=== PATIENT | male | born 1945 | race Caucasian/White ===

== ENCOUNTER 2017-12-25 12:08 | Emergency (ER) | payer MEDICARE, SELFPAY ==
[2017-12-25 12:11] VITALS: BP 133/85; PULSE 85; RESP 16; TEMP 36.6; O2SAT 96; BMI 34.7
[2017-12-25 12:19] VITALS: BMI 35.7
--- NOTE | 2017-12-25 12:20 | PC.NURSE ---
spoke with [facility]- facility staff unsure of last time pt received tetanus shot.
--- NOTE | 2017-12-25 12:21 | CT_ITS ---
CT cervical spine wo con CLINICAL INDICATION: Neck pain following injury, contusion, hematoma, laceration ITS.REASON: fall ORDERING PHYSICIAN: Kaitlynn Bowman MD PATIENT AGE: 72 years TECHNIQUE: Axial images are obtained with sagittal and coronal reformats. FINDINGS: Soft tissue swelling is present anterior to the left ear with some soft tissue gas noted at this area consistent with laceration. There is normal alignment. No fracture or dislocation evident. No lytic or blastic change. Degenerative disc disease C5-C6 with right-sided uncovertebral hypertrophy and right-sided foraminal narrowing. Degenerative disc disease C6-C7 with bulging disc. Lung apices are clear. No prevertebral soft tissue swelling. IMPRESSION: 1. No acute fracture. 2. Cervical spondylosis
--- NOTE | 2017-12-25 12:24 | XR_ITS ---
XR elbow LT min 3V HISTORY: Post traumatic pain ITS.REASON: fall ORDERING PHYSICIAN: Kaitlynn Bowman MD PATIENT AGE: 72 years COMPARISON: None FINDINGS: There is a faint curvilinear calcific density at the olecranon region. Nonspecific and could be related to an avulsion injury age indeterminate. Please correlate with patient's area of point tenderness. No other significant anomalies evident. IMPRESSION: Avulsion fracture at the olecranon process age indeterminate
--- NOTE | 2017-12-25 12:27 | CT_ITS ---
CT head/brain wo con HISTORY: Headache, pain, laceration, contusion ITS.REASON: FALL ORDERING PHYSICIAN: Kaitlynn Bowman MD PATIENT AGE: 72 years COMPARISON: None TECHNIQUE: Axial images obtained without contrast. Brain and bone windows reviewed. FINDINGS: No midline shift, mass effect, intracranial hemorrhage, hydrocephalus, or extra-axial fluid collection is evident. There is generalized atrophy. Encephalomalacia changes are present in the right parietal, temporal, and occipital lobe. There has been a prior right-sided craniotomy in the parietal region. There is an old lacunar infarct in the left basal ganglia. No acute intracranial hemorrhage. No acute calvarial fracture. Mild mucosal thickening involves the paranasal sinuses. Soft tissue swelling is present in the left occipital region consistent with contusion. There is also soft tissue swelling along the anterior aspect of the left tear with a small amount soft tissue gas in this region. No overlying calvarial fracture. IMPRESSION: 1. No acute intracranial findings. 2. 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 3. Old left basal ganglia lacunar infarction 4. Contusion along the left ear and left occipital region
--- NOTE | 2017-12-25 12:37 | HMH.EDFALL ---
ED Disposition Clinical Impression: Fall, Ear lobe laceration, Contusion of head, Elbow abrasion Disposition: Home, Self-Care Condition on Discharge: Good Additional Instructions: Needs dressing changes twice daily and watch wound for any infection; call PCP if any evidence of infection; suture removal in one week Referrals: Dave Vazquez MD [Primary Care Provider] - Time of Disposition: 14:45 - Critical Care Critical Care Time: No Attestation: On , the high probability of a clinically significant, sudden or life threatening deterioration of the following system(s) required my full and direct attention, intervention and personal management. The time I documented below is in addition to time spent performing reported procedures but includes the following listed in this critical care notation. Medical Decision Making - Medical Records Medical records reviewed: Yes: I reviewed the patient's medical records. Vital Signs: 12/25/17 12:11 Temperature 98 F Temperature Source Oral Pulse Rate [Right Radial] 85 Respiratory Rate 16 Blood Pressure [Right Arm] 133/85 Blood Pressure Mean [Right Arm] 101 Blood Pressure Source [Right Arm] Automatic Cuff Blood Pressure Position [Right Arm] Supine 02 Sat by Pulse Oximetry 96 Oxygen Delivery Method Room Air Orders (Tests/Meds): ED MEDICATIONS Discontinued Medications Generic Name Dose Route Start Last Admin Trade Name Freq PRN Reason Stop Dose Admin Tetanus/Reduced Diphtheria/Acell Pertussis 0.5 ml 12/25/17 12:25 12/25/17 12:33 Adacel Tdap 0.5ml Syringe IM 12/25/17 12:26 0.5 ml .ONCE ONE Administration - Radiology Data #1 Image(s): Elbow Image Reviewed: Yes I reviewed the patient's radiology results Preliminary Findings: Abnormal ( faint avulsion fx olecranon age indet. ) - CT Data CT Scan: Head, C-Spine Time Received: 14:[address] Reviewed: Yes: I have reviewed the patient's CT results Preliminary Findings: Normal/NAD (neg acute per rad) - Yogesh Inquiry Pt receiving controlled substance: No Fall HPI - General Chief Complaint: Fall Stated Complaint: Trip and fall. Skin tear to left ear and elbow Time Seen by Provider: 12/25/17 12:20 Mode of Arrival: EMS Source of Information: EMS Limitations: Physical Limitations Description of Symptoms (Recalled from ER Triage Doc. by RN): Trip and fall. Hit wast basket on the way down. Skin tear to left ear and elbow. Pt denies LOC from fall. - History of Present Illness MD complaint: fall Onset (ago): minute(s) Fall from: walking Fall witnessed: no Place fall occurred: snf/SNF Loss of consciousness: none Prolonged down time: no Context: tripped/slipped Location of injury: head, other (L ear through and through laceration) Location of injury - extremities: Left: elbow - Related Data Home Medications Medication Instructions Recorded Confirmed ascorbic acid (vitamin C) 500 mg 500 mg PO QDAY tab 10/30/17 tablet atorvastatin 40 mg tablet 40 mg PO QDAY 10/30/17 carbamazepine 100 mg chewable 100 mg PO QDAY tab 10/30/17 tablet carvedilol 25 mg tablet 25 mg PO BID 10/30/17 duloxetine 20 mg capsule,delayed 30 mg PO QDAY 10/30/17 release ferrous sulfate 325 mg (65 mg 325 mg PO BID tab 10/30/17 iron) tablet hydrochlorothiazide 25 mg tablet 12.5 mg PO BID tab 10/30/17 hydrocodone 5 mg-acetaminophen 325 1 tab PO Q6H PRN 10/30/17 mg tablet insulin lispro protamine-lispro 40 unit SUB-Q BID ml 10/30/17 100 unit/mL (75-25) subcutaneous susp levothyroxine 50 mcg tablet 50 mcg PO QDAY tab 10/30/17 losartan 100 mg tablet 100 mg PO QDAY 10/30/17 magnesium hydroxide 400 mg/5 mL 400 mg PO ONCE 10/30/17 oral suspension metformin 1,000 mg tablet 1,000 mg PO BID 10/30/17 ticagrelor 90 mg tablet 90 mg PO BID 10/30/17 Previous Rx's Medication Instructions Recorded isosorbide mononitrate ER 30 mg 30 mg PO QAM #30 tab 10/30/17 tablet,exten
--- NOTE | 2017-12-25 12:41 | ED_ITS ---
ED Disposition Clinical Impression: Fall, Ear lobe laceration, Contusion of head, Elbow abrasion Disposition: Home, Self-Care Condition on Discharge: Good Additional Instructions: Needs dressing changes twice daily and watch wound for any infection; call PCP if any evidence of infection; suture removal in one week Referrals: Dave Vazquez MD [Primary Care Provider] - Time of Disposition: 14:45 - Critical Care Critical Care Time: No Attestation: On , the high probability of a clinically significant, sudden or life threatening deterioration of the following system(s) required my full and direct attention, intervention and personal management. The time I documented below is in addition to time spent performing reported procedures but includes the following listed in this critical care notation. Medical Decision Making - Medical Records Medical records reviewed: Yes: I reviewed the patient's medical records. Vital Signs: 12/25/17 12:11 Temperature 98 F Temperature Source Oral Pulse Rate [Right Radial] 85 Respiratory Rate 16 Blood Pressure [Right Arm] 133/85 Blood Pressure Mean [Right Arm] 101 Blood Pressure Source [Right Arm] Automatic Cuff Blood Pressure Position [Right Arm] Supine 02 Sat by Pulse Oximetry 96 Oxygen Delivery Method Room Air Orders (Tests/Meds): ED MEDICATIONS Discontinued Medications Generic Name Dose Route Start Last Admin Trade Name Freq PRN Reason Stop Dose Admin Tetanus/Reduced Diphtheria/Acell Pertussis 0.5 ml 12/25/17 12:25 12/25/17 12: 33 Adacel Tdap 0.5ml Syringe IM 12/25/17 12:26 0.5 ml .ONCE ONE Administration - Radiology Data #1 Image(s): Elbow Image Reviewed: Yes I reviewed the patient's radiology results Preliminary Findings: Abnormal ( faint avulsion fx olecranon age indet. ) - CT Data CT Scan: Head, C-Spine Time Received: 14:[address] Reviewed: Yes: I have reviewed the patient's CT results Preliminary Findings: Normal/NAD (neg acute per rad) - Yogesh Inquiry Pt receiving controlled substance: No Fall HPI - General Chief Complaint: Fall Stated Complaint: Trip and fall. Skin tear to left ear and elbow Time Seen by Provider: 12/25/17 12:20 Mode of Arrival: EMS Source of Information: EMS Limitations: Physical Limitations Description of Symptoms (Recalled from ER Triage Doc. by RN): Trip and fall. Hit wast basket on the way down. Skin tear to left ear and elbow. Pt denies LOC from fall. - History of Present Illness MD complaint: fall Onset (ago): minute(s) Fall from: walking Fall witnessed: no Place fall occurred: shelter/SNF Loss of consciousness: none Prolonged down time: no Context: tripped/slipped Location of injury: head, other (L ear through and through laceration) Location of injury - extremities: Left: elbow - Related Data Home Medications Medication Instructions Recorded Confirmed ascorbic acid (vitamin C) 500 mg 500 mg PO QDAY tab 10/30/17 tablet atorvastatin 40 mg tablet 40 mg PO QDAY 10/30/17 carbamazepine 100 mg chewable 100 mg PO QDAY tab 10/30/17 tablet carvedilol 25 mg tablet 25 mg PO BID 10/30/17 duloxetine 20 mg capsule,delayed 30 mg PO QDAY 10/30/17 release ferrous sulfate 325 mg (65 mg 325 mg PO BID tab 10/30/17
--- NOTE | 2017-12-25 14:22 | PC.NURSE ---
Assisted MD with cleaning left ear and left elbow using clean technique. 1% lidocaine injected to left ear per MD. Pt tolerated moderately well.
[2017-12-25 15:29] VITALS: BP 133/85; PULSE 85; RESP 18; TEMP 36.7; O2SAT 98
== END 2017-12-25 15:20 | disposition home or self-care (01) ==
PROVIDERS: Emergency Provider Emergency Medicine; Family Provider Emergency Medicine; PCP Emergency Medicine
DX: S01.312A Laceration without foreign body of left ear, initial encounter (principal); S51.012A Laceration without foreign body of left elbow, initial encounter; W01.0XXA Fall on same level from slipping, tripping and stumbling without subsequent striking against object, initial encounter; Y92.019 Unspecified place in single-family (private) house as the place of occurrence of the external cause; Z23 Encounter for immunization; I10 Essential (primary) hypertension; I25.10 Atherosclerotic heart disease of native coronary artery without angina pectoris; E78.5 Hyperlipidemia, unspecified; E11.9 Type 2 diabetes mellitus without complications; Z79.4 Long term (current) use of insulin; Z79.899 Other long term (current) drug therapy
CPT/HCPCS: 12013; 70450; 72125; 73080; 90471; 90715; 99281

== ENCOUNTER 2017-12-30 01:02 | Emergency (ER) | payer MEDICARE, SELFPAY ==
[2017-12-30 01:09] VITALS: BP 174/100; PULSE 81; RESP 18; TEMP 36.8; O2SAT 98; BMI 34.2
[2017-12-30 01:28] LABS: Basophils % 0.4 % (0.1-2.0); Eosinophils # 0.2 K/mm3 (0.0-0.4); Eosinophils % 2.1 % (0.1-12.0); Hematocrit 41.2 % (42.0-52.0); Hemoglobin 13.3 g/dL (14.1-18.0); Lymphocytes # 1.2 K/mm3 (0.7-4.5); Lymphocytes % 12.3 K/mm3 (10-50); Mean Corpuscular HGB Conc 32.3 g/dL (31.8-35.4); Mean Corpuscular Hemoglobin 31.1 pg (27.0-31.2); Mean Corpuscular Volume 96.5 fl (80-94); Mean Platelet Volume 7.8 fl (7.4-10.4); Monocytes # 0.7 K/mm3 (0.1-1.0); Monocytes % 7.3 % (1.7-9.3); Neutrophils # 7.4 K/mm3 (1.8-7.8); Neutrophils % 77.9 % (37.0-80.0); Platelet Count 269 K/mm3 (142-424); Red Blood Count 4.27 M/mm3 (4.60-6.20); Red Cell Distribution Width 14.3 % (11.5-17.5); White Blood Count 9.5 K/mm3 (4.8-10.8)
[2017-12-30 01:52] LABS: Anion Gap 12.5 mEq/L (5-15); Blood Urea Nitrogen 28 mg/dL (7-18); CKMB Relative Index 5.2 U/L (0-4.0); Carbon Dioxide 28 mmol/L (21.0-32.0); Chloride 100 mmol/L (98-107); Creatine Kinase 42 U/L (39-308); Creatine Kinase MB 2.2 mg/ml (0.0-3.6); Creatinine Clearance Estimated 67 mL/min (0-300); Creatinine,Serum 1.47 mg/dL (0.70-1.30); Estimated Glomerular Filt Rate 47 ml/min (>60); GFR (African American) 57 ML/MIN (>60); Glucose 334 mg/dL (74-106); Potassium 4.5 mmoL/L (3.5-5.1); Sodium 136 mmol/L (136-145); Troponin I 0.08 ng/ml (0.00-0.06)
--- NOTE | 2017-12-30 02:11 | HMH.EDANX ---
ED Disposition Clinical Impression: Acute anxiety, Diabetes mellitus type 2 in nonobese, Renal insufficiency Disposition: Home, Self-Care Condition on Discharge: Good Instructions: Anxiety Disorders Additional Instructions: resume prev meds Referrals: Dave Vazquez MD [Primary Care Provider] - - Critical Care Critical Care Time: No Attestation: On 12/30/17, the high probability of a clinically significant, sudden or life threatening deterioration of the following system(s) required my full and direct attention, intervention and personal management. The time I documented below is in addition to time spent performing reported procedures but includes the following listed in this critical care notation. Medical Decision Making - Medical Records Medical records reviewed: Yes: I reviewed the patient's medical records. - Yogesh Inquiry Pt receiving controlled substance: No Vital Signs: 12/30/17 01:09 Temperature 98.2 F Temperature Source Oral Pulse Rate [Right Radial] 81 Respiratory Rate 18 Blood Pressure [Right Arm] 174/100 Blood Pressure Mean [Right Arm] 124 Blood Pressure Source [Right Arm] Automatic Cuff Blood Pressure Position [Right Arm] Sitting 02 Sat by Pulse Oximetry 98 Oxygen Delivery Method Room Air - Lab Data Lab results reviewed: Yes: I reviewed the patient's lab results. Lab Results 12/30/17 01:20: WBC 9.5, RBC 4.27 L, Hgb 13.3 L, Hct 41.2 L, MCV 96.5 H, MCH 31.1, MCHC 32.3, RDW 14.3, Plt Count 269, MPV 7.8, Neut % (Auto) 77.9, Lymph % (Auto) 12.3, [place] % (Auto) 7.3, Eos % (Auto) 2.1, Baso % (Auto) 0.4, Neut # (Auto) 7.4, Lymph # (Auto) 1.2, [place] # (Auto) 0.7, Eos # (Auto) 0.2, Baso # (Auto) 0.0 12/30/17 01:20: Sodium 136, Potassium 4.5, Chloride 100, Carbon Dioxide 28, Anion Gap 12.5, BUN 28 H, Creatinine 1.47 H, Estimated Creat Clear 67, Estimated GFR 47 L, Est GFR ( Amer) 57 L, Glucose 334 H, Total Creatine Kinase 42, CK-MB (CK-2) 2.2, CK-MB (CK-2) Rel Index 5.2 H, Troponin I 0.08 H Result diagrams: 12/30/17 01:20 12/30/17 01:20 Anxiety HPI - General Chief Complaint: Anxiety Stated Complaint: anxiety Time Seen by Provider: 12/30/17 02:11 Mode of Arrival: EMS Source of Information: Patient, EMS, Medical Record Limitations: No Limitations Description of Symptoms (Recalled from ER Triage Doc. by RN): pt missed bedtime meds and awoke anxious, staff said his BP was elevated (200 systolic) so instead of medicating him with his meds he missed they called ems who transported pt to the ER, pt reports his anxiety is improved - History of Present Illness HPI narrative: pt with hx of anxiety and elevated bp tonight complaint: anxiety Onset (ago): day(s) Severity: moderate Place: home History of similar episodes: Yes Provoking factors: none known - Related Data Home Medications: Home Medications Medication Instructions Recorded Confirmed ascorbic acid (vitamin C) 500 mg 500 mg PO QDAY tab 10/30/17 12/30/17 tablet atorvastatin 40 mg tablet 40 mg PO QDAY 10/30/17 12/30/17 carbamazepine 100 mg chewable 100 mg PO QDAY tab 10/30/17 12/30/17 tablet carvedilol 25 mg tablet 25 mg PO BID 10/30/17 12/30/17 duloxetine 20 mg capsule,delayed 30 mg PO QDAY 10/30/17 12/30/17 release ferrous sulfate 325 mg (65 mg 325 mg PO BID tab 10/30/17 12/30/17 iron) tablet hydrochlorothiazide 25 mg tablet 12.5 mg PO BID tab 10/30/17 12/30/17 hydrocodone 5 mg-acetaminophen 325 1 tab PO Q6H PRN 10/30/17 12/30/17 mg tablet insulin lispro protamine-lispro 40 unit SUB-Q BID ml 10/30/17 12/30/17 100 unit/mL (75-25) subcutaneous susp levothyroxine 50 mcg tablet 50 mcg PO QDAY tab 10/30/17 12/30/17 losartan 100 mg tablet 100 mg PO QDAY 10/30/17 12/30/17 magnesium hydroxide 400 mg/5 mL 400 mg PO ONCE 10/30/17 12/30/17 oral suspension metformin 1,000 mg tablet 1,000 mg PO BID 10/30/17 12/30/17 ticagrelor 90 mg tablet 90 mg PO BID 10/30/17 12/30/17 Isosorb
--- NOTE | 2017-12-30 02:15 | ED_ITS ---
ED Disposition Clinical Impression: Acute anxiety, Diabetes mellitus type 2 in nonobese, Renal insufficiency Disposition: Home, Self-Care Condition on Discharge: Good Instructions: Anxiety Disorders Additional Instructions: resume prev meds Referrals: Dave Vazquez MD [Primary Care Provider] - - Critical Care Critical Care Time: No Attestation: On 12/30/17, the high probability of a clinically significant, sudden or life threatening deterioration of the following system(s) required my full and direct attention, intervention and personal management. The time I documented below is in addition to time spent performing reported procedures but includes the following listed in this critical care notation. Medical Decision Making - Medical Records Medical records reviewed: Yes: I reviewed the patient's medical records. - Yogesh Inquiry Pt receiving controlled substance: No Vital Signs: 12/30/17 01:09 Temperature 98.2 F Temperature Source Oral Pulse Rate [Right Radial] 81 Respiratory Rate 18 Blood Pressure [Right Arm] 174/100 Blood Pressure Mean [Right Arm] 124 Blood Pressure Source [Right Arm] Automatic Cuff Blood Pressure Position [Right Arm] Sitting 02 Sat by Pulse Oximetry 98 Oxygen Delivery Method Room Air - Lab Data Lab results reviewed: Yes: I reviewed the patient's lab results. Lab Results 12/30/17 01:20: WBC 9.5, RBC 4.27 L, Hgb 13.3 L, Hct 41.2 L, MCV 96.5 H, MCH 31.1, MCHC 32.3, RDW 14.3, Plt Count 269, MPV 7.8, Neut % (Auto) 77.9, Lymph % ( Auto) 12.3, [place] % (Auto) 7.3, Eos % (Auto) 2.1, Baso % (Auto) 0.4, Neut # (Auto ) 7.4, Lymph # (Auto) 1.2, [place] # (Auto) 0.7, Eos # (Auto) 0.2, Baso # (Auto) 0.0 12/30/17 01:20: Sodium 136, Potassium 4.5, Chloride 100, Carbon Dioxide 28, Anion Gap 12.5, BUN 28 H, Creatinine 1.47 H, Estimated Creat Clear 67, Estimated GFR 47 L, Est GFR ( Amer) 57 L, Glucose 334 H, Total Creatine Kinase 42, CK-MB (CK-2) 2.2, CK-MB (CK-2) Rel Index 5.2 H, Troponin I 0.08 H Result diagrams: 12/30/17 01:20 12/30/17 01:20 Anxiety HPI - General Chief Complaint: Anxiety Stated Complaint: anxiety Time Seen by Provider: 12/30/17 02:11 Mode of Arrival: EMS Source of Information: Patient, EMS, Medical Record Limitations: No Limitations Description of Symptoms (Recalled from ER Triage Doc. by RN): pt missed bedtime meds and awoke anxious, staff said his BP was elevated (200 systolic) so instead of medicating him with his meds he missed they called ems who transported pt to the ER, pt reports his anxiety is improved - History of Present Illness HPI narrative: pt with hx of anxiety and elevated bp tonight complaint: anxiety Onset (ago): day(s) Severity: moderate Place: home History of similar episodes: Yes Provoking factors: none known - Related Data Home Medications: Home Medications Medication Instructions Recorded Confirmed ascorbic acid (vitamin C) 500 mg 500 mg PO QDAY tab 10/30/17 12/30/17 tablet atorvastatin 40 mg tablet 40 mg PO QDAY 10/30/17 12/30/17 carbamazepine 100 mg chewable 100 mg PO QDAY tab 10/30/17 12/30/17 tablet carvedilol 25 mg tablet 25 mg PO BID 10/30/17 12/30/17 duloxetine 20 mg capsule,delayed 30 mg PO QDAY 10/30/17 12/30/17 release ferrous sulfate 325 mg (65 mg 325 mg PO BID tab 10/30/17 12/30/17 iron) tablet
[2017-12-30 02:20] VITALS: BP 186/103; PULSE 85; RESP 20; TEMP 36.9; O2SAT 96
[2017-12-30 02:46] VITALS: BP 170/95; PULSE 80; RESP 20; TEMP 36.9; O2SAT 96
== END 2017-12-30 02:49 | disposition home or self-care (01) ==
PROVIDERS: Emergency Provider Emergency Medicine; Family Provider Emergency Medicine; PCP Emergency Medicine
DX: F41.9 Anxiety disorder, unspecified (principal); E11.65 Type 2 diabetes mellitus with hyperglycemia; Z79.84 Long term (current) use of oral hypoglycemic drugs; N28.9 Disorder of kidney and ureter, unspecified; I25.10 Atherosclerotic heart disease of native coronary artery without angina pectoris; I10 Essential (primary) hypertension; Z95.0 Presence of cardiac pacemaker; E03.9 Hypothyroidism, unspecified; D64.9 Anemia, unspecified; Z87.891 Personal history of nicotine dependence
CPT/HCPCS: 80048; 82550; 82553; 84484; 85025; 99282

== ENCOUNTER → 2018-01-08 14:55 | Outpatient (CLI) | payer MEDICARE, SELFPAY ==
--- NOTE | 2018-01-08 10:00 | CA_ITS ---
PROCEDURE: Contrast echo Definity contrast was given 2 in has the endocardial surfaces. This by contrast used endocardial surface of poorly visualized, visually estimated ejection fraction of 45%, there is distal septum and apical wall hypokinesis seen.
--- NOTE | 2018-01-08 15:07 | CA_ITS ---
PROCEDURE: 2-D M-mode and color Doppler study INDICATIONS FOR THE TEST: Chest pain COPD Heart Murmur Tobacco Smoking Palpitations Fatigue Syncope Edema HypertensionXDiabetes MellitusX Rheumatic Fever SOBXDOEXObesityXHyperlipidemiaX Family History HD Additional History CAD,CABG H/O CHF,DM ECHO EF 08/05 40-45% PATIENT INFORMATION HEIGHT: 68 WEIGHT:235 GENDER: Male B/P:141/86 2-D/M-MODE INTERPRETATION: 2-D MEASUREMENTS OBSERVED VALUES IN CMS Right Ventricular Dimension (RVDd) 2.5 Interventricular Septum (Thickness)(IVsd) 1.6 Left Ventricular Internal Dimensions(LVIDd) 5.1 Left Ventricular Posterior Wall (Thickness)(LVPWd) 1.5 Aortic Root 3.6 Aortic Cusp Separation 1.3 Left Atrial Dimensions (LAD) 3.3 2D 1. Technically difficult study because of the patient's factor and poor acoustic windows, endocardial surface of poorly visualized, a repeat study with Definity contrast is recommended. 2. The left atrium is mildly enlarged, left ventricle is normal size, there is mild concentric left ventricular hypertrophy, visually estimated ejection fraction approximately 40-45%, there is marked hypokinesis involving the distal septum, anteroapical and anterolateral wall. A repeat study with Definity contrast is recommended. 3. The right atrium and right ventricle are mildly enlarged with normal contractility. 4. The aortic valve is minimally thickened and fibrosed. 5. The mitral and tricuspid valve leaflets are minimally thickened. 6. The pulmonic valve is poorly visualized. 7. No significant pericardial effusion noted. DOPPLER INTERROGATION: 1. The maximum aortic out flow velocity is 2.2 m/s, resulting in a mean gradient across valve of 12 mmHg represents mild aortic stenosis, there is no significant aortic insufficiency present. 2. The mitral inflow velocity within normal range, there is no mitral stenosis, there is mild mitral regurgitation, grade 1 diastolic dysfunction seen with tissue Doppler evidence of raised left atrial pressure. 3. There is mild tricuspid regurgitation noted, tricuspid and enteric velocity insufficient for acquisition of the right ventricular systolic pressure. CONCLUSION: 1. Technically very difficult study because of the patient's factor and poor acoustic windows, repeat study with Definity contrast is recommended. 2. Mildly enlarged left atrium, normal left ventricular size, visually estimated ejection fraction is probably 40-45% with segmental wall motion abnormalities described above, repeat study with Definity contrast is recommended. Grade 1 diastolic dysfunction seen
[2018-01-08 16:42] LABS: Anion Gap 17.2 mEq/L (5-15); Blood Urea Nitrogen 29 mg/dL (7-18); Carbon Dioxide 25 mmol/L (21.0-32.0); Chloride 96 mmol/L (98-107); Creatinine,Serum 1.83 mg/dL (0.70-1.30); Estimated Glomerular Filt Rate 37 ml/min (>60); GFR (African American) 44 ML/MIN (>60); Glucose 273 mg/dL (74-106); Potassium 4.2 mmoL/L (3.5-5.1); Sodium 134 mmol/L (136-145)
== END ==
PROVIDERS: Internal Medicine Cardiovascular Disease; Family Provider Emergency Medicine; PCP Emergency Medicine; Visit Provider Internal Medicine
DX: I25.10 Atherosclerotic heart disease of native coronary artery without angina pectoris (principal); I50.9 Heart failure, unspecified; I25.5 Ischemic cardiomyopathy
CPT/HCPCS: 36415; 80048; 83880; 93306

== ENCOUNTER 2018-01-09 18:21 | Emergency (ER) | payer MEDICARE, SELFPAY ==
[2018-01-09 18:25] VITALS: BP 165/82; PULSE 79; RESP 18; TEMP 36.8; O2SAT 95; BMI 37.0
--- NOTE | 2018-01-09 18:29 | XR_ITS ---
XR hand LT min 3V HISTORY: Posttraumatic pain ITS.REASON: s/t to hand ORDERING PHYSICIAN: Peña Nieto MD PATIENT AGE: 72 years COMPARISON: None FINDINGS: No obvious fracture or dislocation. 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 IMPRESSION: No acute finding
--- NOTE | 2018-01-09 19:22 | HMH.EDGENADL ---
ED Disposition Clinical Impression: Skin tear of hand without complication Qualifiers: Encounter type: initial encounter Laterality: left Qualified Code(s): S61.412A - Laceration without foreign body of left hand, initial encounter Disposition: Home, Self-Care Condition on Discharge: Good Instructions: DI for Laceration Repair With Dermabond Referrals: Dave Vazquez MD [Primary Care Provider] - - Critical Care Critical Care Time: No Attestation: On 01/09/18, the high probability of a clinically significant, sudden or life threatening deterioration of the following system(s) required my full and direct attention, intervention and personal management. The time I documented below is in addition to time spent performing reported procedures but includes the following listed in this critical care notation. Medical Decision Making - Yogesh Inquiry Pt receiving controlled substance: No Vital Signs: 01/09/18 18:25 Temperature 98.3 F Temperature Source Oral Pulse Rate [Right Brachial] 79 Respiratory Rate 18 Blood Pressure [Right Arm] 165/82 Blood Pressure Mean [Right Arm] 109 Blood Pressure Source [Right Arm] Automatic Cuff Blood Pressure Position [Right Arm] Sitting 02 Sat by Pulse Oximetry 95 Oxygen Delivery Method Room Air Orders (Tests/Meds): ORDERS Category Date Time Status XR hand LT min 3V Stat Exams 01/09/18 18:29 Taken General Adult HPI - General Chief complaint: Skin/Abscess/Foreign Body Stated complaint: left hand s/t Time Seen by Provider: 01/09/18 19:22 Mode of Arrival: EMS Limitations: No Limitations Description of Symptoms (Recalled from ER Triage Doc. by RN): left hand s/t from reaching after something - History of Present Illness HPI narrative: Patient states that he scraped the top of his left hand on an object tearing the skin. He says his skin is very thin. He does not know when his last tetanus immunization was. No other injuries. Reviewed records, got a tetanus immunization here on 12/25/17. - Related Data Home Medications Medication Instructions Recorded Confirmed ascorbic acid (vitamin C) 500 mg 500 mg PO QDAY tab 10/30/17 01/09/18 tablet atorvastatin 40 mg tablet 40 mg PO QDAY 10/30/17 01/09/18 carbamazepine 100 mg chewable 100 mg PO QDAY tab 10/30/17 01/09/18 tablet carvedilol 25 mg tablet 25 mg PO BID 10/30/17 01/09/18 duloxetine 20 mg capsule,delayed 30 mg PO QDAY 10/30/17 01/09/18 release ferrous sulfate 325 mg (65 mg 325 mg PO BID tab 10/30/17 01/09/18 iron) tablet hydrochlorothiazide 25 mg tablet 12.5 mg PO BID tab 10/30/17 01/09/18 hydrocodone 5 mg-acetaminophen 325 1 tab PO Q6H PRN 10/30/17 01/09/18 mg tablet insulin lispro protamine-lispro 40 unit SUB-Q BID ml 10/30/17 01/09/18 100 unit/mL (75-25) subcutaneous susp levothyroxine 50 mcg tablet 50 mcg PO QDAY tab 10/30/17 01/09/18 losartan 100 mg tablet 100 mg PO QDAY 10/30/17 01/09/18 magnesium hydroxide 400 mg/5 mL 400 mg PO ONCE 10/30/17 01/09/18 oral suspension metformin 1,000 mg tablet 1,000 mg PO BID 10/30/17 01/09/18 ticagrelor 90 mg tablet 90 mg PO BID 10/30/17 01/09/18 Isosorbide Mononitrate [Imdur 30mg 30 mg PO QAM 12/30/17 01/09/18 ER tablet] furosemide 20 mg tablet 20 mg PO DAILY tab 01/08/18 01/09/18 Allergies Allergy/AdvReac Type Severity Reaction Status Date / Time No Known Allergies Allergy Verified 10/30/17 09:34 [facility] History I have reviewed the patient's past medical history: Yes Medical History: Reports:: Coronary Artery Disease, Diabetes Mellitus Type 1, Diabetes Mellitus Type 2, Hypertension Denies:: Cancer, Internal Pacemaker, MRSA Other Medical History: Reports: Anemia, Hypothyroidism Other Surgeries: Yes: Colonoscopy, Other. No: Pacemaker Amputation: No Fractures: No - Social History Educational Level: Completed High School Smoking Status: Unknown if ever smoked Tobacco Type: cigarettes Alcohol Intake: never Alcohol I
[2018-01-09 20:36] VITALS: BP 160/82; PULSE 85; RESP 16; TEMP 37; O2SAT 98
== END 2018-01-09 20:38 | disposition home or self-care (01) ==
PROVIDERS: Emergency Provider Emergency Medicine; Family Provider Emergency Medicine; PCP Emergency Medicine
DX: S61.412A Laceration without foreign body of left hand, initial encounter (principal); E11.9 Type 2 diabetes mellitus without complications; Z79.4 Long term (current) use of insulin; I25.10 Atherosclerotic heart disease of native coronary artery without angina pectoris; Z79.899 Other long term (current) drug therapy; I10 Essential (primary) hypertension; Z95.0 Presence of cardiac pacemaker; E03.9 Hypothyroidism, unspecified; W22.8XXA Striking against or struck by other objects, initial encounter; Y92.019 Unspecified place in single-family (private) house as the place of occurrence of the external cause
CPT/HCPCS: 73130; 99281

== ENCOUNTER 2018-05-03 09:15 | Observation (INO) ==
[2018-05-03 09:29] LABS: Basophils % 0.5 % (0.1-2.0); Eosinophils # 0.1 K/mm3 (0.0-0.4); Eosinophils % 1.4 % (0.1-12.0); Hematocrit 38.3 % (42.0-52.0); Hemoglobin 12.1 g/dL (14.1-18.0); Lymphocytes # 0.9 K/mm3 (0.7-4.5); Lymphocytes % 11.6 K/mm3 (10-50); Mean Corpuscular HGB Conc 31.6 g/dL (31.8-35.4); Mean Corpuscular Hemoglobin 30.6 pg (27.0-31.2); Mean Corpuscular Volume 96.9 fl (80-94); Mean Platelet Volume 7.7 fl (7.4-10.4); Monocytes # 0.6 K/mm3 (0.1-1.0); Monocytes % 7.2 % (1.7-9.3); Neutrophils # 6.1 K/mm3 (1.8-7.8); Neutrophils % 79.4 % (37.0-80.0); Platelet Count 262 K/mm3 (142-424); Red Blood Count 3.96 M/mm3 (4.60-6.20); Red Cell Distribution Width 14.3 % (11.5-17.5); White Blood Count 7.6 K/mm3 (4.8-10.8)
--- NOTE | 2018-05-03 09:35 | Emergency Department Note ---
ED Disposition Clinical Impression: Chest pain Qualifiers: Chest pain type: unspecified Qualified Code(s): R07.9 - Chest pain, unspecified Acute exacerbation of CHF (congestive heart failure) Qualifiers: Heart failure type: systolic Qualified Code(s): I50.23 - Acute on chronic systolic (congestive) heart failure Disposition: Admitted As Inpatient Condition on Discharge: Fair Time of Disposition: 13:02 - Critical Care Critical Care Time: No Attestation: On , the high probability of a clinically significant, sudden or life threatening deterioration of the following system(s) required my full and direct attention, intervention and personal management. The time I documented below is in addition to time spent performing reported procedures but includes the following listed in this critical care notation. Total Critical Care Time: 45 Vital system(s) involved:: Circulatory Failure Medical Decision Making - Medical Records Medical records reviewed: Yes: I reviewed the patient's medical records. - Yogesh Inquiry Pt receiving controlled substance: No Vital Signs: 05/03/18 09:17 05/03/18 09:46 05/03/18 10:16 Temperature 98.9 F Temperature Source Oral Pulse Rate [Left Radial] 79 68 77 Respiratory Rate 20 16 18 Blood Pressure [Right Arm] 170/102 135/75 127/72 Blood Pressure Mean [Right Arm] 124 95 90 Blood Pressure Source [Right Arm] Automatic Cuff Automatic Cuff Automatic Cuff Blood Pressure Position [Right Arm] Sitting Sitting Sitting 02 Sat by Pulse Oximetry 96 98 96 Oxygen Delivery Method Room Air Room Air Room Air 05/03/18 10:30 05/03/18 11:00 05/03/18 11:30 Temperature Temperature Source Pulse Rate [Left Radial] 84 84 82 Respiratory Rate 18 18 18 Blood Pressure [Right Arm] 137/78 176/109 159/98 Blood Pressure Mean [Right Arm] 97 131 118 Blood Pressure Source [Right Arm] Automatic Cuff Automatic Cuff Automatic Cuff Blood Pressure Position [Right Arm] Sitting Sitting Sitting 02 Sat by Pulse Oximetry 97 97 98 Oxygen Delivery Method Room Air Room Air Room Air 05/03/18 12:00 05/03/18 12:30 05/03/18 13:00 Temperature Temperature Source Pulse Rate [Left Radial] 78 80 80 Respiratory Rate 16 16 18 Blood Pressure [Right Arm] 165/101 159/96 182/43 Blood Pressure Mean [Right Arm] 122 117 89 Blood Pressure Source [Right Arm] Automatic Cuff Automatic Cuff Automatic Cuff Blood Pressure Position [Right Arm] Sitting Sitting Sitting 02 Sat by Pulse Oximetry 95 96 97 Oxygen Delivery Method Room Air Room Air Room Air - Lab Data Lab results reviewed: Yes: I reviewed the patient's lab results. Lab Results 05/03/18 09:18: WBC 7.6, RBC 3.96 L, Hgb 12.1 L, Hct 38.3 L, MCV 96.9 H, MCH 30.6, MCHC 31.6 L, RDW 14.3, Plt Count 262, MPV 7.7, Neut % (Auto) 79.4, Lymph % (Auto) 11.6, [place] % (Auto) 7.2, Eos % (Auto) 1.4, Baso % (Auto) 0.5, Neut # ( Auto) 6.1, Lymph # (Auto) 0.9, [place] # (Auto) 0.6, Eos # (Auto) 0.1, Baso # (Auto ) 0.0 05/03/18 09:18: Sodium 141, Potassium 3.8, Chloride 107, Carbon Dioxide 24, Anion Gap 13.8, BUN 20 H, Creatinine 1.39 H, Estimated Creat Clear 72, Estimated GFR 50 L, Est GFR ( Amer) 61, Glucose 320 H, Calcium 8.3 L, Total Bilirubin 0.2, AST 8 L, ALT 19, Alkaline Phosphatase 145 H, Troponin I 0.04, Total Protein 6.7, Albumin 2.8 L, Globulin 3.9 H, Albumin/Globulin Ratio 0.7 L 05/03/18 09:18: B-Natriuretic Peptide 625 H 05/03/18 11:55: Troponin I 0.05 Result diagrams: 05/03/18 09:18 05/03/18 09:18 Orders (Tests/Meds): ED MEDICATIONS Generic Name Dose Route Start Last Admin Trade Name Freq PRN Reason Stop Dose Admin Hydrocodone Bitart/Acetaminophen 1 tab 05/03/18 13:52 05/03/18 15:34 [place] 5/325mg Tablet PO 06/02/18 13:21 1 tab DAILYP PRN Administration Mild to Moderate Pain Ascorbic Acid 500 mg 05/04/18 09:00 Vitamin C 500mg Tablet PO 06/03/18 08:59 DAILY CINDY Atorvastatin Calcium 40 mg 05/03/18 21:00 05/03/18 20:04 Lipitor 40mg Tablet PO 06/02/18 20:59 40 mg HS CINDY Administration Carbamazepine 100 mg 05/03/18 21:00 05/03/18 20:04 Tegretol 100mg Tablet PO 06/02/18 20:59 100 mg BID CINDY Administration Carvedilol 25 mg 05/03/18 21:00 05/03/18 20:04 Coreg 25mg Tablet PO 06/02/18 20:59 25 mg BID CINDY Administration Duloxetine HCl 30 mg 05/04/18 09:00 Cymbalta 30mg Capsule PO 06/03/18 08:59 DAILY CINDY Ferrous Sulfate 325 mg 05/03/18 21:00 05/03/18 20:04 Ferrous Sulfate 325mg Tablet PO 06/02/18 20:59 325 mg BID CINDY Administration Furosemide 20 mg 05/04/18 09:00 Lasix 20mg Tablet PO 06/03/18 08:59 DAILY CINDY Hydrochlorothiazide 12.5 mg 05/04/18 09:00 Hctz 12.5mg Capsule PO 06/03/18 08:59 DAILY CINDY Insulin Human Lispro 0 unit 05/03/18 16:30 05/03/18 20:07 Humalog 100 Units/Ml 3ml Vial (Ssi) SQ 06/02/18 16:29 4 unit ACHS CINDY Administration Protocol Irbesartan 150 mg 05/04/18 09:00 Avapro 150mg Tablet PO 06/03/18 08:59 DAILY CINDY Isosorbide Mononitrate 30 mg 05/04/18 09:00 Imdur 30mg Er Tablet PO 06/03/18 08:59 DAILY CINDY Levothyroxine Sodium 50 mcg 05/04/18 07:00 Synthroid 50mcg (0.05mg) Tablet PO 06/03/18 06:59 DAILYDM CINDY Loperamide HCl 2 mg 05/03/18 14:00 Imodium 2 Mg Capsule PO 06/02/18 13:59 Q6HP PRN Constipation Magnesium Hydroxide 30 ml 05/03/18 13:22 Milk Of Magnesia 30ml Udc PO 06/02/18 13:21 Q72H PRN Constipation Metformin HCl 1,000 mg 05/03/18 17:30 05/03/18 19:15 Metformin 500mg Tablet PO 06/02/18 17:29 1,000 mg BIDWM CINDY Administration Ticagrelor 90 mg 05/03/18 21:00 05/03/18 20:04 Brilinta 90mg Tablet PO 06/02/18 20:59 90 mg BID CINDY Administration Discontinued Medications Generic Name Dose Route Start Last Admin Trade Name Freq PRN Reason Stop Dose Admin Hydrocodone Bitart/Acetaminophen 1 tab 05/03/18 13:22 [place] 5/325mg Tablet PO 06/02/18 13:21 Q6H PRN pain Furosemide 20 mg 05/03/18 12:43 05/03/18 12:51 Lasix 20mg/2ml Vial IV 05/03/18 12:44 20 mg ONCE ONE Administration Non-Formulary Medication 40 unit 05/03/18 21:00 Insulin Nph Hum/Reg Insulin Hm [Novolin 70-30 100 Unit/Ml Vial] SQ 06/02/18 20:59 BID CINDY - Radiology Data #1 Image(s): Chest Image Reviewed: Yes I reviewed the patient's radiology results, Yes I reviewed the patient's radiology image, Yes I discussed the image results w/the radiologist Preliminary Findings: Abnormal [address] [place] [address] XRay Report Signed Patient: Ishmael Solano MR#: [id number] : 1945 Acct:[id number] Age/Sex: 73 / M ADM Date: 05/03/18 Loc: ER Attending Dr: Ordering Physician: Bentley Alejandra MD Date of Service: 05/03/18 Procedure(s): XR chest 2V Accession Number(s): [id number] cc: Christiano Meek ; Dave Vazquez MD~ XR chest 2V HISTORY: Chest pain ITS.REASON: chest pain ORDERING PHYSICIAN: Bentley Alejandra MD PATIENT AGE: 73 years COMPARISON: PA and lateral chest 10/06/2017 FINDINGS: The lung levy are fairly well-expanded and appear clear of infiltrate. There is mild generalized cardio megaly without failure. Is no pleural fluid. There are mild degenerative changes in both shoulders. IMPRESSION: Mild cardio megaly, no acute chest pathology noted Dictated By: Christiano Meek Signed By: <Electronically signed by Christiano Meek in OV> 05/03/18 1006 DD/ 1005 - ECG Data Tracing #1 I reviewed this ECG and interpreted as documented below: heart rate 88, chronic ST depression II, II, aVF when compared to old EKGs ECG normal with no acute: arrhythmias, ischemia, conduction abnormalities, chamber hypertrophy Normal Sinus Rhythm: Yes - Physician Consults Physician Consulted: Dr Vazquez Time: 12:50 Reason -: Admission, Pt condition Comment/Response: Advised of patient's presentation findings, informed of patient's multiple comorbid conditions, as well as escalating cardiac enzymes. Plan is to repeat serial cardiac enzymes, diurese patient, and obtain cardiology consultation. A 2D echo will be scheduled for a.m. - Reevaluation(s) Time: 12:45 Reevaluation #1: Upon reevaluation patient continues to have occasional episodes of chest pressure and shortness of breath. Advised of results as well as the need to admit him for further investigations. Chest Pain HPI - General Chief Complaint: Chest Pain Stated Complaint: dizziness Time Seen by Provider: 05/03/18 09:19 Mode of Arrival: EMS Source of Information: Patient Limitations: No Limitations Description of Symptoms (Recalled from ER Triage Doc. by RN): Pt states the started feeling funny with dizziness and chest pressure and back pain. - History of Present Illness HPI narrative: Patient is a 73-year-old male patient arriving to the emergency room from [facility] complaining with chest discomfort and shortness of breath since earlier this morning, when he woke up. Patient has multiple comorbid conditions including diabetes, obesity, preestablished coronary artery disease. Patient describes the pain as being related to exertion, relieved by rest, pressure-like, radiating to the left neck, left shoulder, down the left upper extremity. Patient tried no medications prior to arrival to the emergency room. Patient is a very vague historian. MD complaint: chest pain indicative of cardiac Onset (ago): hour(s) (2) Duration: intermittent Activity at onset: during exertion Pain location: substernal Severity: moderate Severity scale (1-10): 4 Quality: tightness Pain radiation: LUE Relieving factors: nothing (none tried) Exacerbating factors: movement Associated symptoms: nausea, diaphoresis, dyspnea Risk Factors for CAD: Hypertension, Hypercholesterolemia, Diabetes Treatments prior to or on arrival for Cardiac Chest Pain: none - Related Data Home Medications Medication Instructions Recorded Confirmed ascorbic acid (vitamin C) 500 mg 500 mg PO DAILY tab 10/30/17 05/03/18 tablet atorvastatin 40 mg tablet 40 mg PO HS 10/30/17 05/03/18 carbamazepine 100 mg chewable 100 mg PO BID tab 10/30/17 05/03/18 tablet carvedilol 25 mg tablet 25 mg PO BID 10/30/17 05/03/18 ferrous sulfate 325 mg (65 mg 325 mg PO BID tab 10/30/17 05/03/18 iron) tablet hydrocodone 5 mg-acetaminophen 325 1 tab PO DAILYP PRN 10/30/17 05/03/18 mg tablet levothyroxine 50 mcg tablet 50 mcg PO DAILY tab 10/30/17 05/03/18 losartan 100 mg tablet 100 mg PO DAILY 10/30/17 05/03/18 magnesium hydroxide 400 mg/5 mL 30 ml PO Q72H PRN 10/30/17 05/03/18 oral suspension metformin 1,000 mg tablet 1,000 mg PO BID 10/30/17 05/03/18 ticagrelor 90 mg tablet 90 mg PO BID 10/30/17 05/03/18 Isosorbide Mononitrate [Imdur 30mg 30 mg PO DAILY 12/30/17 05/03/18 ER tablet] furosemide 20 mg tablet 20 mg PO DAILY tab 01/15/18 05/03/18 Duloxetine HCl [Cymbalta 30mg 30 mg PO DAILY 04/12/18 05/03/18 capsule] Insulin NPH Hum/Reg Insulin Hm 40 unit SQ BID 04/12/18 05/03/18 [Novolin 70-30 100 Unit/ml Vial] Loperamide HCl [Loperamide] 2 mg PO Q6HP PRN 04/12/18 05/03/18 hydroCHLOROthiazide [HCTZ 12.5mg 12.5 mg PO DAILY 04/12/18 05/03/18 cap] Allergies Allergy/AdvReac Type Severity Reaction Status Date / Time No Known Allergies Allergy Verified 10/30/17 09:34 [facility] History I have reviewed the patient's past medical history: Yes Medical History: Reports:: Coronary Artery Disease, Diabetes Mellitus Type 2, Hypertension Denies:: Cancer, Diabetes Mellitus Type 1, Internal Pacemaker, MRSA Other Medical History: Reports: Anemia, Hypothyroidism Laterality Cases: Bilateral: Tonsillectomy Other Surgeries: Yes: Colonoscopy, Other. No: Pacemaker Amputation: No Fractures: No - Social History Smoking Status: Unknown if ever smoked Tobacco Type: cigarettes Alcohol Intake: never Alcohol Intake Frequency:: other Substance Use Type: denies use Occupational Status: unemployed, disabled Housing: penitentiary - Psychiatric History Expresses thoughts of harming self/others: None Suicide Plan Description: No Plan Family Hx:: Cancer, Stroke ROS Obtained: Yes All systems reviewed & no additional complaints, Yes Systems reviewed as appropriate & no additional complaints - Cardiovascular Cardiovascular: Reports system reviewed and no additional complaints, except as docu, Reports as per HPI, Reports chest pain - Respiratory Respiratory: Yes system reviewed and no additional complaints, except as docu, Yes as per HPI, Yes dyspnea Physical Exam - General General appearance: alert, in distress - Head Head exam: atraumatic, normocephalic, normal inspection - Neck Neck exam: Present: normal inspection, full ROM, trachea midline. Absent: meningismus, lymphadenopathy - Chest Chest inspection: Present: normal inspection, symmetric chest wall rise. Absent : tenderness - Respiratory Respiratory exam: Present: normal lung sounds bilaterally. Absent: respiratory distress - Cardiovascular Cardiovascular exam: Present: regular rate, normal rhythm. Absent: JVD - Abdominal Exam Abdominal exam: Present: soft, normal bowel sounds. Absent: distention, tenderness, guarding - Extremities Exam Extremities exam: Present: normal inspection, full ROM, normal capillary refill. Absent: calf tenderness - Neurological Exam Neurological exam: Present: alert, oriented X3, CN II-XII intact, normal gait - Psychiatric Psychiatric exam: Present: depressed, flat affect - Skin Skin exam: Present: warm, dry, intact, normal color - Lymphatic Lymphatic Findings: no adenopathy
[2018-05-03 09:45] LABS: Albumin Level 2.8 gm/dL (3.4-5.0); Albumin/Globulin Ratio 0.7 (1.1-1.8); Anion Gap 13.8 mEq/L (5-15); Bilirubin,Total 0.2 mg/dL (0.2-1.0); Calcium 8.3 mg/dL (8.5-10.1); Globulin 3.9 gm/dl (1.3-3.2); Potassium 3.8 mmoL/L (3.5-5.1); Total Protein,Serum 6.7 gm/dL (6.4-8.2)
--- NOTE | 2018-05-03 13:30 | Pharmacy Consult Notes ---
[facility] Pharmacy VTE Monitoring - Patient Demographics Admission date: 05/03/18 Report Date: 05/03/18 Time: 13:30 Allergies/Adverse Reactions: Patient Allergies No Known Allergies Allergy (Verified 10/30/17 09:34) Height: 1.73 m Weight: 106.141 kg Patient Problems: Current Active Problems Chest pain (Acute) Acute exacerbation of CHF (congestive heart failure) (Acute) - VTE Risk Labs: VTE Related Lab Results Hgb 12.1 g/dL (14.1-18.0) L 05/03/18 09:18 Hct 38.3 % (42.0-52.0) L 05/03/18 09:18 Plt Count 262 K/mm3 (142-424) 05/03/18 09:18 BUN 20 mg/dL (7-18) H 05/03/18 09:18 Creatinine 1.39 mg/dL (0.70-1.30) H 05/03/18 09:18 Estimated Creat Clear 72 mL/min (0-300) 05/03/18 09:18 - Prophylaxis VTE Prophylaxis Ordered?: Yes Types of VTE Prophylaxis: TEDS Knee High, Pharmacological Location of Applied Device: Bilateral Lower Extremeties Pharmacologic Type: Other (BRILIN[place]) - VTE Diagnosis Confirmed Treatment or plan recommended: Continue Current Treatment
--- NOTE | 2018-05-04 08:25 | Consult Report ---
History of Present Illness Consult date: 05/04/18 Requesting physician: Dave Vazquez Consult reason: chest pain Chief complaint: SOA Additional Medical History:: 1. DM, treated since 2015 2. HTN A. CHF B. Echo, 12/2017, LVEF 45% with distal septum and apical hypokinesis. Mild AI , MR, TR. 3. Hyperlipidemia 4. Remote tobacco use 5. 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 Fractured hip, 2017 status post repair 7. Hypothyroidism 8. CAD A. NSTEMI, 09/2017 B. Cardiac cath, 09/2017, mild CAD of left main, LAD and RCA with dominant circumflex with mid vessel occlusion. BHARTI to circumflex placed. LVEF 40% with LVEDP 50 mm Hg. History of present illness: 73-year-old white male with history of mild cardiomyopathy and coronary artery disease status post drug-eluting stent placement to circumflex artery in September 2017 with chronic shortness of breath, mild aortic insufficiency by recent echo in December 2017 was sent from [facility] for shortness of breath with some mental confusion per patient. Patient is a difficult historian. Patient was admitted overnight with cardiac troponins returned to normal limits. Cardiology consulted for evaluation and recommendations. [facility] History Medical History: Reports:: Cardiomyopathy, Coronary Artery Disease, Diabetes Mellitus Type 2, Hypertension Denies:: Cancer, Diabetes Mellitus Type 1, Internal Pacemaker, MRSA Other Medical History: Reports: Anemia, Hypothyroidism Laterality Cases: Bilateral: Tonsillectomy Other Surgeries: Yes: Colonoscopy, Other. No: Pacemaker Amputation: No Fractures: No - *Social History Educational Level: Attended College Smoking Status: Unknown if ever smoked Tobacco Type: cigarettes Alcohol Intake: never Alcohol Intake Frequency:: other Substance Use Type: denies use Occupational Status: unemployed, disabled Housing: detention - Psychiatric History Expresses thoughts of harming self/others: None Suicide Plan Description: No Plan *Family Hx:: Cancer, Stroke Meds Home Medications Medication Instructions Recorded Confirmed Type ascorbic acid (vitamin C) 500 mg 500 mg PO DAILY tab 10/30/17 05/03/18 History tablet atorvastatin 40 mg tablet 40 mg PO HS 10/30/17 05/03/18 History carbamazepine 100 mg chewable 100 mg PO BID tab 10/30/17 05/03/18 History tablet carvedilol 25 mg tablet 25 mg PO BID 10/30/17 05/03/18 History ferrous sulfate 325 mg (65 mg 325 mg PO BID tab 10/30/17 05/03/18 History iron) tablet hydrocodone 5 mg-acetaminophen 325 1 tab PO DAILYP PRN 10/30/17 05/03/18 History mg tablet levothyroxine 50 mcg tablet 50 mcg PO DAILY tab 10/30/17 05/03/18 History losartan 100 mg tablet 100 mg PO DAILY 10/30/17 05/03/18 History magnesium hydroxide 400 mg/5 mL 30 ml PO Q72H PRN 10/30/17 05/03/18 History oral suspension metformin 1,000 mg tablet 1,000 mg PO BID 10/30/17 05/03/18 History ticagrelor 90 mg tablet 90 mg PO BID 10/30/17 05/03/18 History Isosorbide Mononitrate [Imdur 30mg 30 mg PO DAILY 12/30/17 05/03/18 History ER tablet] furosemide 20 mg tablet 20 mg PO DAILY tab 01/15/18 05/03/18 History Duloxetine HCl [Cymbalta 30mg 30 mg PO DAILY 04/12/18 05/03/18 History capsule] Insulin NPH Hum/Reg Insulin Hm 40 unit SQ BID 04/12/18 05/03/18 History [Novolin 70-30 100 Unit/ml Vial] Loperamide HCl [Loperamide] 2 mg PO Q6HP PRN 04/12/18 05/03/18 History hydroCHLOROthiazide [HCTZ 12.5mg 12.5 mg PO DAILY 04/12/18 05/03/18 History cap] Allergies Allergy/AdvReac Type Severity Reaction Status Date / Time No Known Allergies Allergy Verified 10/30/17 09:34 Review of Systems - *Cardiovascular Reports shortness of breath - *Respiratory Reports shortness of breath with activity - *Gastrointestinal Denies abdominal pain - *Genitourinary Denies difficulty urinating Exam Vital signs and Labs for Last 24 Hours: Temp Pulse Resp BP Pulse Ox 98.0 F 95 H 18 161/70 97 05/04/18 07:28 05/04/18 07:28 05/04/18 07:28 05/04/18 07:28 05/04/18 07:28 Laboratory Results - last 24 hr 05/03/18 09:18: WBC 7.6, RBC 3.96 L, Hgb 12.1 L, Hct 38.3 L, MCV 96.9 H, MCH 30.6, MCHC 31.6 L, RDW 14.3, Plt Count 262, MPV 7.7, Neut % (Auto) 79.4, Lymph % (Auto) 11.6, [place] % (Auto) 7.2, Eos % (Auto) 1.4, Baso % (Auto) 0.5, Neut # ( Auto) 6.1, Lymph # (Auto) 0.9, [place] # (Auto) 0.6, Eos # (Auto) 0.1, Baso # (Auto ) 0.0 05/03/18 09:18: Sodium 141, Potassium 3.8, Chloride 107, Carbon Dioxide 24, Anion Gap 13.8, BUN 20 H, Creatinine 1.39 H, Estimated Creat Clear 72, Estimated GFR 50 L, Est GFR ( Amer) 61, Glucose 320 H, Calcium 8.3 L, Total Bilirubin 0.2, AST 8 L, ALT 19, Alkaline Phosphatase 145 H, Troponin I 0.04, Total Protein 6.7, Albumin 2.8 L, Globulin 3.9 H, Albumin/Globulin Ratio 0.7 L 05/03/18 09:18: B-Natriuretic Peptide 625 H 05/03/18 11:55: Troponin I 0.05 05/03/18 16:37: POC Glucose 292 H 05/03/18 20:01: POC Glucose 228 H 05/04/18 01:10: Total Creatine Kinase 46, CK-MB (CK-2) 2.0, CK-MB (CK-2) Rel Index 4.3 H, Troponin I 0.04 I & O for Last 24 hours: Intake & Output 05/01/18 05/02/18 05/03/18 05/04/18 11:59 11:59 11:59 11:59 Intake Total 700 / 700 Output Total 1050 / 1050 Balance -350 / -350 Weight 234 lb 231 lb 9 oz - *Routine Neck Exam Absent: JVD, carotid bruit - *Routine Respiratory Exam Present: decreased breath sounds - *Routine Cardiovascular Exam Present: RRR, murmur. Absent: gallop, rubs - *Routine Abdominal Exam Present: soft. Absent: tenderness - *Routine Extremities Exam Absent: edema - *Routine Neurological Exam Present: alert, moving all extremities Assessment and Plan (1) AVILES (dyspnea on exertion) Current visit: No Status: Chronic Category: Medical Code(s): R06.09 - Other forms of dyspnea (2) CAD (coronary artery disease) Current visit: No Status: Chronic Qualifiers: Coronary Disease-Associated Artery/Lesion type: bypass graft [place] vs. transplanted heart: [place] heart Associated angina: without angina Qualified Code(s): I25.810 - Atherosclerosis of coronary artery bypass graft(s) without angina pectoris Category: Medical Code(s): I25.10 - Atherosclerotic heart disease of [place] coronary artery without angina pectoris (3) Hypertension Current visit: No Status: Chronic Qualifiers: Hypertension type: essential hypertension Qualified Code(s): I10 - Essential (primary) hypertension Category: Medical Code(s): I10 - Essential (primary) hypertension (4) Ischemic cardiomyopathy Current visit: No Status: Chronic Category: Medical Code(s): I25.5 - Ischemic cardiomyopathy (5) Mitral valve regurgitation Current visit: No Status: Chronic Qualifiers: Cardiac valve disease etiology: etiology unspecified Qualified Code(s): I34.0 - Nonrheumatic mitral (valve) insufficiency Category: Medical Code(s): I34.0 - Nonrheumatic mitral (valve) insufficiency - Assessment and plan all Dx Assessment and Plan for all problems:: 1. SOA with elevated BNP without CXR evidence of CHF. Pt is on diuretic therapy with elevated renal functions of BUN 20 and Cr 1.39. No changes at this time. Pt feels better this AM. 2. Echo has been performed with preliminary results showing no significant changes from 12/2017 study. 3. CAD, clinically stable with troponins WNL. Continue ASA, brilinta and imdur. 4. Cardiomyopathy, stable. Continue coreg and ARB but due to elevated BP would recommend increasing coreg to 37.5 mg BID. 5. OK to discharge home from cardiology standpoint. Follow up in our office in 2 wks.
[2018-05-04 11:41] VITALS: BP 137/65
--- NOTE | 2018-05-04 12:48 | H&P/Discharge Summary ---
General - General Admission date:: 05/03/18 Discharge date: 05/04/18 *Admission Date: 05/03/18 *Chief complaint: chest pain *History of present illness: this wm from alf with hx of cad - he had acute episode at [facility] and presented to [facility] is a 73-year-old male patient arriving to the emergency room from [facility] complaining with chest discomfort and shortness of breath since earlier this morning, when he woke up. Patient has multiple comorbid conditions including diabetes, obesity, preestablished coronary artery disease. Patient describes the pain as being related to exertion, relieved by rest, pressure-like, radiating to the left neck , left shoulder, down the left upper extremity. Patient tried no medications prior to arrival to the emergency room. Patient is a very vague historian. [facility] History I have reviewed the patient's past medical history: Yes Medical History: Reports:: Cardiomyopathy, Coronary Artery Disease, Diabetes Mellitus Type 2, Hypertension Denies:: Cancer, Diabetes Mellitus Type 1, Internal Pacemaker, MRSA Other Medical History: Reports: Anemia, Hypothyroidism Laterality Cases: Bilateral: Tonsillectomy Other Surgeries: Yes: Colonoscopy, Other. No: Pacemaker Amputation: No Fractures: No - *Social History Educational Level: Attended College Smoking Status: Unknown if ever smoked Tobacco Type: cigarettes Alcohol Intake: never Alcohol Intake Frequency:: other Substance Use Type: denies use Occupational Status: unemployed, disabled Housing: correction - Psychiatric History Expresses thoughts of harming self/others: None Suicide Plan Description: No Plan *Family Hx:: Cancer, Stroke Review of Systems - Review of Systems Review of systems:: pertinent systems reviewed and negative unless documented below - Constitutional Denies fever(s) - Eyes Denies change in vision - ENT Denies throat swelling - *Cardiovascular Denies chest pain at rest - *Respiratory Denies chest congestion - *Gastrointestinal Denies abdominal pain - *Musculoskeletal Denies joint pain - Integumentary/Breasts Denies rash - *Neurologic Denies seizure-like activity - Psychiatric Denies anxiety Exam Vital signs and Labs for Last 24 Hours: Temp Pulse Resp BP Pulse Ox 98.0 F 75 18 137/65 96 05/04/18 11:40 05/04/18 11:40 05/04/18 11:40 05/04/18 11:40 05/04/18 11:40 Laboratory Results - last 24 hr 07/15/18 16:37: POC Glucose 292 H 05/03/18 20:01: POC Glucose 228 H 05/04/18 01:10: Total Creatine Kinase 46, CK-MB (CK-2) 2.0, CK-MB (CK-2) Rel Index 4.3 H, Troponin I 0.04 I & O for Last 24 hours: Intake & Output 05/02/18 05/03/18 05/04/18 05/05/18 11:59 11:59 11:59 11:59 Intake Total 700 / 700 Output Total 1050 / 1050 Balance -350 / -350 Weight 234 lb 231 lb 9 oz - Constitutional no acute distress - *Routine HEENT Exam Head: Present: normocephalic Eye: Present: EOMI, PERRL ENT: Present: mucous membranes dry - *Routine Neck Exam Present: supple - *Routine Respiratory Exam Absent: respiratory distress - *Routine Cardiovascular Exam Present: RRR, murmur - *Routine Abdominal Exam Present: soft - *Routine Extremities Exam Absent: calf tenderness - *Routine Skin Exam Present: intact - *Routine Neurological Exam Present: alert, oriented X3, CN II-XII intact - Routine Psychiatric Exam Present: normal affect Hospital Course Hospital Course: pt did better in hospital and had neg serial enz and had stable echo - he was seen by card -, treated since 2015 2. HTN A. CHF B. Echo, 12/2017, LVEF 45% with distal septum and apical hypokinesis. Mild AI , MR, TR. 3. Hyperlipidemia 4. Remote tobacco use 5. 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 Fractured hip, 2017 status post repair 7. Hypothyroidism 8. CAD A. NSTEMI, 09/2017 B. Cardiac cath, 09/2017, mild CAD of left main, LAD and RCA with dominant circumflex with mid vessel occlusion. BHARTI to circumflex placed. LVEF 40% with LVEDP 50 mm Hg. History of present illness: 73-year-old white male with history of mild cardiomyopathy and coronary artery disease status post drug-eluting stent placement to circumflex artery in September 2017 with chronic shortness of breath, mild aortic insufficiency by recent echo in December 2017 was sent from [facility] for shortness of breath with some mental confusion per patient. Patient is a difficult historian. Patient was admitted overnight with cardiac troponins returned to normal limits. Cardiology consulted for evaluation and recommendations. SOA with elevated BNP without CXR evidence of CHF. Pt is on diuretic therapy with elevated renal functions of BUN 20 and Cr 1.39. No changes at this time. Pt feels better this AM. 2. Echo has been performed with preliminary results showing no significant changes from 12/2017 study. 3. CAD, clinically stable with troponins WNL. Continue ASA, brilinta and imdur. 4. Cardiomyopathy, stable. Continue coreg and ARB but due to elevated BP would recommend increasing coreg to 37.5 mg BID. 5. OK to discharge home from cardiology standpoint. Follow up in our office in 2 wks. Results Labs on day of discharge: Labs from last 24 hours 05/04/18 05/03/18 05/03/18 01:10 20:01 16:37 POC Glucose 228 H 292 H Total Creatine Kinase 46 CK-MB (CK-2) 2.0 CK-MB (CK-2) Rel Index 4.3 H Troponin I 0.04 DS: Diagnosis - Discharge Diagnosis (1) AVILES (dyspnea on exertion) Status: Chronic (2) CAD (coronary artery disease) Status: Chronic (3) Hypertension Status: Chronic (4) Ischemic cardiomyopathy Status: Chronic (5) Mitral valve regurgitation Status: Chronic Discharge Medications Discharge Medications: Home Medications Medication Instructions Recorded Confirmed Type ascorbic acid (vitamin C) 500 mg 500 mg PO DAILY tab 10/30/17 05/03/18 History tablet atorvastatin 40 mg tablet 40 mg PO HS 10/30/17 05/03/18 History carbamazepine 100 mg chewable 100 mg PO BID tab 10/30/17 05/03/18 History tablet carvedilol 25 mg tablet 25 mg PO BID 10/30/17 05/03/18 History ferrous sulfate 325 mg (65 mg 325 mg PO BID tab 10/30/17 05/03/18 History iron) tablet hydrocodone 5 mg-acetaminophen 325 1 tab PO DAILYP PRN 10/30/17 05/03/18 History mg tablet levothyroxine 50 mcg tablet 50 mcg PO DAILY tab 10/30/17 05/03/18 History losartan 100 mg tablet 100 mg PO DAILY 10/30/17 05/03/18 History magnesium hydroxide 400 mg/5 mL 30 ml PO Q72H PRN 10/30/17 05/03/18 History oral suspension metformin 1,000 mg tablet 1,000 mg PO BID 10/30/17 05/03/18 History ticagrelor 90 mg tablet 90 mg PO BID 10/30/17 05/03/18 History Isosorbide Mononitrate [Imdur 30mg 30 mg PO DAILY 12/30/17 05/03/18 History ER tablet] furosemide 20 mg tablet 20 mg PO DAILY tab 01/15/18 05/03/18 History Duloxetine HCl [Cymbalta 30mg 30 mg PO DAILY 04/12/18 05/03/18 History capsule] Insulin NPH Hum/Reg Insulin Hm 40 unit SQ BID 04/12/18 05/03/18 History [Novolin 70-30 100 Unit/ml Vial] Loperamide HCl [Loperamide] 2 mg PO Q6HP PRN 04/12/18 05/03/18 History hydroCHLOROthiazide [HCTZ 12.5mg 12.5 mg PO DAILY 04/12/18 05/03/18 History cap] Disposition Disposition: Home, Self-Care
--- NOTE | 2018-05-04 21:18 | Cardiology Report ---
PROCEDURE: 2-D M-mode and color Doppler study INDICATIONS FOR THE TEST: Chest pain COPD Heart Murmur Tobacco Smoking Palpitations Fatigue Syncope Edema Hypertension+Diabetes Mellitus+ Rheumatic Fever SOB AVILES Obesity+Hyperlipidemia+ Family History HD Additional History CAD, DEFINITY GIVEN PATIENT INFORMATION HEIGHT: 68 WEIGHT:234 GENDER: Male B/P:161/70 2-D/M-MODE INTERPRETATION: 2-D MEASUREMENTS OBSERVED VALUES IN CMS Right Ventricular Dimension (RVDd) 3.0 Interventricular Septum (Thickness)(IVsd) 2.5 Left Ventricular Internal Dimensions(LVIDd) 5.0 Left Ventricular Posterior Wall (Thickness)(LVPWd) 1.7 Aortic Root 4.3 Aortic Cusp Separation 1.7 Left Atrial Dimensions (LAD) 4.4 2D 1. Left atrium is mildly enlarged, left ventricle is normal size, there is moderate concentric left ventricular hypertrophy, visually estimated ejection fraction 50%, there appears to be hypokinesis involving the inferolateral wall. 2. The right atrium and right ventricle are relatively mildly enlarged with normal contractility. 3. The aortic valve is thickened and calcified with restriction the leaflet mobility. 4. The mitral and tricuspid valve leaflets are minimally thickened. 5. The pulmonic valve is poorly. 6. No significant pericardial effusion noted. DOPPLER INTERROGATION: 1. The maximum aortic out flow velocity recorded study 2.5 m/s resulting in a mean gradient across valve of 14 mmHg, this represents mild aortic stenosis. There is no aortic insufficiency. 2. The mitral inflow velocity within normal range, there is no mitral stenosis, there is moderate mitral regurgitation, grade 1 diastolic dysfunction seen with tissue Doppler evidence of raised left atrial pressure. 3. Mild tricuspid regurgitation, tricuspid and jet velocity insufficient for calculation of the right ventricular systolic pressure. CONCLUSION: 1. Technically difficult study, Definity contrast was placed to delineate endocardial surfaces. 2. Mildly enlarged left atrium, normal left ventricular size, moderate concentric left ventricular hypertrophy, visually estimated ejection fraction 50% with segmental wall motion abnormality described above. Grade 1 diastolic dysfunction seen with tissue Doppler evidence of raised left atrial pressure. 3. Thickened and calcified aortic valve with mean gradient across valve of 14 mmHg, this represents mild aortic stenosis, there is no aortic insufficiency. 4. Moderate mitral and mild tricuspid regurgitation 5. No significant pericardial effusion noted.
== END 2018-05-04 18:00 | disposition home or self-care (01) ==
LOC: ER 09:15 → 2ND 09:15
PROVIDERS: ADMIT Emergency Medicine; ATTEND Emergency Medicine

== ENCOUNTER 2018-07-08 08:27 | Inpatient (IN) ==
--- NOTE | 2018-07-08 08:38 | Emergency Department Note ---
ED Disposition Clinical Impression: Unstable angina Bilateral pneumonia Qualifiers: Pneumonia type: due to unspecified organism Lung location: lower lobe of lung Qualified Code(s): J18.1 - Lobar pneumonia, unspecified organism Disposition: Admitted As Inpatient Condition on Discharge: Fair Time of Disposition: 11:48 - Critical Care Critical Care Time: No Attestation: On , the high probability of a clinically significant, sudden or life threatening deterioration of the following system(s) required my full and direct attention, intervention and personal management. The time I documented below is in addition to time spent performing reported procedures but includes the following listed in this critical care notation. Medical Decision Making - Medical Records Medical records reviewed: Yes: I reviewed the patient's medical records. - Yogesh Inquiry Pt receiving controlled substance: Yes Yogesh was queried for this patient: Yes (3 scripts for Hydrocodone but none since 2016) Reference #:: [id number] Risks and benefits of using a controlled substance: were not discussed with pt by me Vital Signs: 07/08/18 08:28 07/08/18 09:01 07/08/18 09:18 Temperature 98.2 F Temperature Source Oral Pulse Rate Pulse Rate [Left Radial] 92 H 78 74 Respiratory Rate 18 18 Blood Pressure [Right Arm] 133/82 110/68 131/82 Blood Pressure Mean [Right Arm] 99 82 98 Blood Pressure Source [Right Arm] Automatic Cuff Automatic Cuff Automatic Cuff Blood Pressure Position [Right Arm] Sitting Sitting Supine 02 Sat by Pulse Oximetry 96 97 Oxygen Delivery Method Room Air Nasal Cannula Oxygen Flow Rate (LPM) 2 07/08/18 09:30 07/08/18 09:41 07/08/18 09:45 Temperature Temperature Source Pulse Rate Pulse Rate [Left Radial] 74 78 76 Respiratory Rate 18 22 18 Blood Pressure [Right Arm] 119/76 106/66 106/66 Blood Pressure Mean [Right Arm] 90 79 79 Blood Pressure Source [Right Arm] Automatic Cuff Automatic Cuff Blood Pressure Position [Right Arm] Supine Sitting Supine 02 Sat by Pulse Oximetry 97 93 L Oxygen Delivery Method Nasal Cannula Nasal Cannula Oxygen Flow Rate (LPM) 2 2 07/08/18 09:59 07/08/18 10:05 07/08/18 10:08 Temperature Temperature Source Pulse Rate 74 Pulse Rate [Left Radial] 70 72 Respiratory Rate 18 22 Blood Pressure [Right Arm] 110/66 116/63 Blood Pressure Mean [Right Arm] 80 80 Blood Pressure Source [Right Arm] Automatic Cuff Blood Pressure Position [Right Arm] Supine Sitting 02 Sat by Pulse Oximetry 98 96 Oxygen Delivery Method Nasal Cannula Nasal Cannula Oxygen Flow Rate (LPM) 2 2 07/08/18 10:20 07/08/18 10:26 07/08/18 10:34 Temperature Temperature Source Pulse Rate Pulse Rate [Left Radial] 75 69 72 Respiratory Rate Blood Pressure [Right Arm] 94/52 92/49 105/51 Blood Pressure Mean [Right Arm] 66 63 69 Blood Pressure Source [Right Arm] Blood Pressure Position [Right Arm] Sitting Sitting Sitting 02 Sat by Pulse Oximetry Oxygen Delivery Method Oxygen Flow Rate (LPM) 07/08/18 10:51 07/08/18 11:13 Temperature Temperature Source Pulse Rate Pulse Rate [Left Radial] 70 70 Respiratory Rate 22 Blood Pressure [Right Arm] 109/61 112/62 Blood Pressure Mean [Right Arm] 77 78 Blood Pressure Source [Right Arm] Blood Pressure Position [Right Arm] Sitting Sitting 02 Sat by Pulse Oximetry 95 Oxygen Delivery Method Nasal Cannula Oxygen Flow Rate (LPM) 2 - Lab Data Lab results reviewed: Yes: I reviewed the patient's lab results. Lab Results 07/08/18 08:30: PT 9.9, INR 0.96 07/08/18 08:50: Lactate 2.3 H 07/08/18 09:10: WBC 11.3 H, RBC 3.67 L, Hgb 11.5 L, Hct 35.8 L, MCV 97.6 H, MCH 31.4 H, MCHC 32.2, RDW 14.7, Plt Count 317, MPV 7.8, Neut % (Auto) 82.1 H, Lymph % (Auto) 9.0 L, [place] % (Auto) 6.4, Eos % (Auto) 2.3, Baso % (Auto) 0.2, Neut # (Auto) 9.3 H, Lymph # (Auto) 1.0, [place] # (Auto) 0.7, Eos # (Auto) 0.3, Baso # (Auto) 0.0 07/08/18 09:10: B-Natriuretic Peptide 1060 H 07/08/18 09:35: Specimen Source L. bachial, O2 % 2 lpm, ABG pH 7.41, ABG pCO2 37.1, ABG pO2 107.6 H, ABG HCO3 22.7, ABG Total CO2 23.9, ABG O2 Saturation 98, ABG Base Excess -2.0, Cameron Test n/a 07/08/18 09:40: Sodium 138, Potassium 4.4, Chloride 104, Carbon Dioxide 27, Anion Gap 11.4, BUN 26 H, Creatinine 1.50 H, Estimated Creat Clear 66, Estimated GFR 46 L, Est GFR ( Amer) 56 L, Glucose 350 H, Calcium 8.5, Total Bilirubin 0.3, AST 6 L, ALT 17, Alkaline Phosphatase 156 H, Total Creatine Kinase 39, CK-MB (CK-2) 2.4, CK-MB (CK-2) Rel Index 6.2 H, Troponin I 0.05, Total Protein 6.4, Albumin 2.6 L, Globulin 3.8 H, Albumin/Globulin Ratio 0.7 L Result diagrams: 07/08/18 09:10 07/08/18 09:40 Orders (Tests/Meds): ED MEDICATIONS Generic Name Dose Route Start Last Admin Trade Name Freq PRN Reason Stop Dose Admin Nitroglycerin/Dextrose 250 mls @ 1.5 mls/hr 07/08/18 09:15 07/08/18 10:29 Nitroglycerin 50mg/250ml D5w IV 08/07/18 09:14 0 mcg/min .Q24H CINDY 0 mls/hr Titration Protocol 5 MCG/MIN Piperacillin Sod/Tazobactam 100 mls @ 200 mls/hr 07/08/18 09:45 07/08/18 09:53 Sod 3.375 gm/ Sodium Chloride IV 07/22/18 09:44 200 mls/hr Q6H CINDY Administration Protocol Sodium Chloride 1,000 mls @ 125 mls/hr 07/08/18 09:45 Sod Chlor 0.9% 1000ml Bag IV 07/08/18 17:44 .Q8H [facility] Miscellaneous 1 each 07/08/18 09:45 Vancomycin Consult Request * 08/07/18 09:44 CONSULT PHARMACY [facility] Sodium Chloride 3 ml 07/08/18 09:47 Sodium Chloride 3% 15ml Neb IH 08/07/18 09:46 ONCE PRN INDUCE SPUTUM [employer]LECTION Discontinued Medications Generic Name Dose Route Start Last Admin Trade Name Freq PRN Reason Stop Dose Admin Albuterol/Ipratropium 3 ml 07/08/18 09:47 07/08/18 09:55 Duoneb 3ml Neb IH 07/08/18 09:48 3 ml ONCE ONE Administration Levofloxacin/Dextrose 500 mg in 100 mls @ 100 mls/hr 07/08/18 09:38 07/08/18 10:31 Levaquin 500mg/100ml Premix IV 07/08/18 10:37 100 mls/hr ONCE ONE Administration Protocol Vancomycin HCl 2,000 mg/ 250 mls @ 125 mls/hr 07/08/18 09:45 07/08/18 11:13 Sodium Chloride IV 07/08/18 11:44 125 mls/hr ONCE ONE Administration Morphine Sulfate 2 mg 07/08/18 09:40 07/08/18 09:53 Morphine 4mg/Ml Syringe IV 07/08/18 09:41 2 mg ONCE ONE Administration Nitroglycerin 0.5 gm 07/08/18 08:37 07/08/18 08:40 Nitroglycerin 1 Inch Oint Udp TD 07/08/18 08:38 0.5 gm ONCE ONE Administration ORDERS Category Date Time Status Blood Culture Stat Micro 07/08/18 09:40 Ordered Sputum Culture & Gram Stain Stat Micro 07/08/18 09:47 Ordered ABG [Arterial Blood Gas] Stat RT 07/08/18 09:35 Ordered 12-lead EKG Request [ECG Request by /Jake] Stat Y 07/08/18 08:54 Ordered 12-lead EKG Request [ECG Request by /Jake] Stat Y 07/08/18 09:00 Ordered EKG Request [ECG Request by /Jake] Stat Y 07/08/18 09:00 Ordered - Radiology Data #1 Image(s): Chest Image Reviewed: Yes I reviewed the patient's radiology results, Yes I reviewed the patient's radiology image, Yes I discussed the image results w/the radiologist, Yes I have reviewed radiologist's interpretation Bilateral lower lobe infiltrates - ECG Data Tracing #1 ECG initial impression date: 07/08/18 ECG initial impression time: 08:30 Normal Sinus Rhythm: Yes Ischemic changes: non-specific ST-T wave changes Chest Pain HPI - General Chief Complaint: Chest Pain Stated Complaint: chest pain Time Seen by Provider: 07/08/18 08:30 Mode of Arrival: EMS Limitations: No Limitations Description of Symptoms (Recalled from ER Triage Doc. by RN): to ed per squad pt resident NH sent for eval due to elevated blood pressure and chest pain. pt given 324mg asa and 2 nitro sl which decreased b/p and relieved chest pain. +SOB pt denies any other c/o at present - History of Present Illness HPI narrative: Mr. Londono is a 73-year-old white male who started having chest pain during the middle of the night. EMS was called to his home at which time his blood pressure was greater than 200 systolic. He was given 324 mg of aspirin and [address] here and here he says that he still does not feel well but is not having any chest pain and his blood pressure down to 130 systolic he appears to be uncomfortable MD complaint: chest pain indicative of cardiac Onset (ago): hour(s) Time: 03:00 Duration: constant Activity at onset: during rest Pain location: substernal Severity: moderate Treatments prior to or on arrival for Cardiac Chest Pain: aspirin, nitroglycerin - Related Data Home Medications Medication Instructions Recorded Confirmed ascorbic acid (vitamin C) 500 mg 500 mg PO DAILY tab 10/30/17 07/08/18 tablet atorvastatin 40 mg tablet 40 mg PO HS 10/30/17 07/08/18 carbamazepine 100 mg chewable 100 mg PO BID tab 10/30/17 07/08/18 tablet ferrous sulfate 325 mg (65 mg 325 mg PO BID tab 10/30/17 07/08/18 iron) tablet hydrocodone 5 mg-acetaminophen 325 1 tab PO DAILYP PRN 10/30/17 07/08/18 mg tablet levothyroxine 50 mcg tablet 50 mcg PO DAILY tab 10/30/17 07/08/18 losartan 100 mg tablet 100 mg PO DAILY 10/30/17 07/08/18 magnesium hydroxide 400 mg/5 mL 30 ml PO Q72H PRN 10/30/17 07/08/18 oral suspension metformin 1,000 mg tablet 1,000 mg PO BID 10/30/17 07/08/18 ticagrelor 90 mg tablet 90 mg PO BID 10/30/17 07/08/18 Isosorbide Mononitrate [Imdur 30mg 30 mg PO DAILY 12/30/17 07/08/18 ER tablet] furosemide 20 mg tablet 20 mg PO DAILY tab 01/15/18 07/08/18 Duloxetine HCl [Cymbalta 30mg 30 mg PO DAILY 04/12/18 07/08/18 capsule] Insulin NPH Hum/Reg Insulin Hm 40 unit SQ BID 04/12/18 07/08/18 [Novolin 70-30 100 Unit/ml Vial] Loperamide HCl [Loperamide] 2 mg PO Q6HP PRN 04/12/18 07/08/18 hydroCHLOROthiazide [HCTZ 12.5mg 12.5 mg PO DAILY 04/12/18 07/08/18 capsule] Carvedilol [Coreg 25mg Tablet] 37.5 mg PO BID 07/04/18 07/08/18 Amlodipine Besylate [Norvasc 2.5mg 2.5 mg PO DAILY 07/08/18 07/08/18 tablet] Allergies Allergy/AdvReac Type Severity Reaction Status Date / Time No Known Allergies Allergy Verified 07/04/18 23:54 [facility] History I have reviewed the patient's past medical history: Yes Medical History: Reports:: Cardiomyopathy, Coronary Artery Disease, Diabetes Mellitus Type 2, Hypertension Denies:: Cancer, Diabetes Mellitus Type 1, Internal Pacemaker, MRSA Other Medical History: Reports: Anemia, Hypothyroidism Laterality Cases: Bilateral: Tonsillectomy Other Surgeries: Yes: Colonoscopy, Other. No: Pacemaker Amputation: No Fractures: No - Social History Smoking Status: Unknown if ever smoked Tobacco Type: cigarettes Alcohol Intake: never Alcohol Intake Frequency:: other Substance Use Type: denies use Occupational Status: unemployed, disabled Housing: fdc - Psychiatric History Expresses thoughts of harming self/others: None Suicide Plan Description: No Plan Family Hx:: Cancer, Stroke ROS Obtained: Yes All systems reviewed & no additional complaints - Constitutional Constitutional: Reports system reviewed and no additional complaints, except as docu, Reports as per HPI - Cardiovascular Cardiovascular: Reports system reviewed and no additional complaints, except as docu, Reports as per HPI Physical Exam - General General appearance: alert, in distress, other (Patient appears to be un comfortable but denies any overt chest pain) - Head Head exam: atraumatic - Respiratory Respiratory exam: Present: normal lung sounds bilaterally, respiratory distress - Cardiovascular Cardiovascular exam: Present: regular rate, normal rhythm - Abdominal Exam Abdominal exam: Present: soft - Neurological Exam Neurological exam: Present: alert, oriented X3
[2018-07-08 08:59] LABS: INR 0.96 (0.9-1.1); Prothrombin Time 9.9 seconds (9.4-11.8)
[2018-07-08 09:28] LABS: Basophils % 0.2 % (0.1-2.0); Eosinophils # 0.3 K/mm3 (0.0-0.4); Eosinophils % 2.3 % (0.1-12.0); Hematocrit 35.8 % (42.0-52.0); Hemoglobin 11.5 g/dL (14.1-18.0); Mean Corpuscular HGB Conc 32.2 g/dL (31.8-35.4); Mean Corpuscular Hemoglobin 31.4 pg (27.0-31.2); Mean Corpuscular Volume 97.6 fl (80-94); Mean Platelet Volume 7.8 fl (7.4-10.4); Monocytes # 0.7 K/mm3 (0.1-1.0); Monocytes % 6.4 % (1.7-9.3); Neutrophils # 9.3 K/mm3 (1.8-7.8); Neutrophils % 82.1 % (37.0-80.0); Platelet Count 317 K/mm3 (142-424); Red Blood Count 3.67 M/mm3 (4.60-6.20); Red Cell Distribution Width 14.7 % (11.5-17.5); White Blood Count 11.3 K/mm3 (4.8-10.8)
[2018-07-08 09:54] LABS: ABG HCO3 22.7 mmhg (22.0-26.0); ABG Oxygen Saturation 98 % (90-100); ABG PCO2 37.1 mmhg (35.0-45.0); ABG PH 7.41 mmol/L (7.35-7.45); ABG PO2 107.6 mmhg (80-100); ABG TCO2 23.9 mmhg (23-27)
[2018-07-08 09:57] LABS: Oxygen 2 lpm %
[2018-07-08 10:28] LABS: Albumin Level 2.6 gm/dL (3.4-5.0); Albumin/Globulin Ratio 0.7 (1.1-1.8); Anion Gap 11.4 mEq/L (5-15); Bilirubin,Total 0.3 mg/dL (0.2-1.0); Calcium 8.5 mg/dL (8.5-10.1); Globulin 3.8 gm/dl (1.3-3.2); Potassium 4.4 mmoL/L (3.5-5.1); Total Protein,Serum 6.4 gm/dL (6.4-8.2)
--- NOTE | 2018-07-08 13:03 | Consult Report ---
History of Present Illness Consult date: 07/08/18 Requesting physician: Dave Vazquez Consult reason: chest pain, hypertension Chief complaint: Chest pain Additional Medical History:: 1. DM, treated since 2015 2. HTN A. CHF B. Echo, 12/2017, LVEF 45% with distal septum and apical hypokinesis. Mild AI, MR, TR. C. Echo, 04/2018, LVEF 50% with concentric LVH, hypokinesis of inferolateral wall, mild , Moderate MR and mild TR 3. Hyperlipidemia 4. Remote tobacco use 5. 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 Fractured hip, 2017 status post repair 7. Hypothyroidism, on supplement 8. CAD A. NSTEMI, 09/2017 B. Cardiac cath, 09/2017, mild CAD of left main, LAD and RCA with dominant circumflex with mid vessel occlusion. BHARTI to circumflex placed. LVEF 40% with LVEDP 50 mm Hg History of present illness: 73-year-old white male with known coronary artery disease/coronary artery stenting in 2017, diabetes, hypertension and hyperlipidemia was transported to the emergency department for complaint of chest pain. Patient was noted to have an elevated blood pressure (systolic pressure greater than 200 mm Hg) and was given several nitroglycerin both en route and in ER due to the chest pain and elevated blood pressure. No significant improvement until patient received nitroglycerin drip in the emergency department. Patient's blood pressure did drop significantly which prompted discontinuation of nitroglycerin drip. His chest discomfort did resolve with the nitroglycerin drip. EKGs reveal some subtle changes in the lateral leads suggestive of ischemia. His initial troponin is 0.05. The patient reportedly has been seen multiple times within the last 2 weeks for complaint of chest discomfort. Each time his troponins have returned within normal limits. Patient does reside at a snf. The EKG changes did improve after the glycerin drip. At the time of my evaluation the patient is in the ER and comfortable with complaint of chest discomfort or the "nervous feeling" that has had in the past. Cardiology consulted for evaluation and recommendations. Patient does continue on aspirin and Brilinta due to coronary stenting in 2016. [facility] History Medical History: Reports:: Cardiomyopathy, Coronary Artery Disease, Diabetes Mellitus Type 2, Hypertension Denies:: Cancer, Diabetes Mellitus Type 1, Internal Pacemaker, MRSA Other Medical History: Reports: Anemia, Hypothyroidism Laterality Cases: Bilateral: Tonsillectomy Other Surgeries: Yes: Colonoscopy, Other. No: Pacemaker Amputation: No Fractures: No - *Social History Smoking Status: Unknown if ever smoked Tobacco Type: cigarettes Alcohol Intake: never Alcohol Intake Frequency:: other Substance Use Type: denies use Occupational Status: unemployed, disabled Housing: snf - Psychiatric History Expresses thoughts of harming self/others: None Suicide Plan Description: No Plan *Family Hx:: Cancer, Stroke Meds Home Medications Medication Instructions Recorded Confirmed Type ascorbic acid (vitamin C) 500 mg 500 mg PO DAILY tab 10/30/17 07/08/18 History tablet atorvastatin 40 mg tablet 40 mg PO HS 10/30/17 07/08/18 History carbamazepine 100 mg chewable 100 mg PO BID tab 10/30/17 07/08/18 History tablet ferrous sulfate 325 mg (65 mg 325 mg PO BID tab 10/30/17 07/08/18 History iron) tablet hydrocodone 5 mg-acetaminophen 325 1 tab PO DAILYP PRN 10/30/17 07/08/18 History mg tablet levothyroxine 50 mcg tablet 50 mcg PO DAILY tab 10/30/17 07/08/18 History losartan 100 mg tablet 100 mg PO DAILY 10/30/17 07/08/18 History magnesium hydroxide 400 mg/5 mL 30 ml PO Q72H PRN 10/30/17 07/08/18 History oral suspension metformin 1,000 mg tablet 1,000 mg PO BID 10/30/17 07/08/18 History ticagrelor 90 mg tablet 90 mg PO BID 10/30/17 07/08/18 History Isosorbide Mononitrate [Imdur 30mg 30 mg PO DAILY 12/30/17 07/08/18 History ER tablet] furosemide 20 mg tablet 20 mg PO DAILY tab 01/15/18 07/08/18 History Duloxetine HCl [Cymbalta 30mg 30 mg PO DAILY 04/12/18 07/08/18 History capsule] Insulin NPH Hum/Reg Insulin Hm 40 unit SQ BID 04/12/18 07/08/18 History [Novolin 70-30 100 Unit/ml Vial] Loperamide HCl [Loperamide] 2 mg PO Q6HP PRN 04/12/18 07/08/18 History hydroCHLOROthiazide [HCTZ 12.5mg 12.5 mg PO DAILY 04/12/18 07/08/18 History capsule] Carvedilol [Coreg 25mg Tablet] 37.5 mg PO BID 07/04/18 07/08/18 History Amlodipine Besylate [Norvasc 2.5mg 2.5 mg PO DAILY 07/08/18 07/08/18 History tablet] Allergies Allergy/AdvReac Type Severity Reaction Status Date / Time No Known Allergies Allergy Verified 07/04/18 23:54 Review of Systems - *Cardiovascular Reports chest pain, Reports shortness of breath with activity - *Respiratory Reports shortness of breath with activity - *Gastrointestinal Denies abdominal pain - *Genitourinary Denies blood in urine - *Musculoskeletal Reports back pain - *Neurologic Denies loss of vision, Denies fainting, Denies dizziness Exam Vital signs and Labs for Last 24 Hours: Temp Pulse Resp BP Pulse Ox 98.8 F 72 22 116/58 96 07/08/18 12:48 07/08/18 12:48 07/08/18 12:48 07/08/18 12:48 07/08/18 12:30 Laboratory Results - last 24 hr 07/08/18 08:30: PT 9.9, INR 0.96 07/08/18 08:50: Lactate 2.3 H 07/08/18 09:10: WBC 11.3 H, RBC 3.67 L, Hgb 11.5 L, Hct 35.8 L, MCV 97.6 H, MCH 31.4 H, MCHC 32.2, RDW 14.7, Plt Count 317, MPV 7.8, Neut % (Auto) 82.1 H, Lymph % (Auto) 9.0 L, [place] % (Auto) 6.4, Eos % (Auto) 2.3, Baso % (Auto) 0.2, Neut # (Auto) 9.3 H, Lymph # (Auto) 1.0, [place] # (Auto) 0.7, Eos # (Auto) 0.3, Baso # (Auto) 0.0 07/08/18 09:10: B-Natriuretic Peptide 1060 H 07/08/18 09:35: Specimen Source LDenzel donis, O2 % 2 lpm, ABG pH 7.41, ABG pCO2 37.1, ABG pO2 107.6 H, ABG HCO3 22.7, ABG Total CO2 23.9, ABG O2 Saturation 98, ABG Base Excess -2.0, Cameron Test n/a 07/08/18 09:40: Sodium 138, Potassium 4.4, Chloride 104, Carbon Dioxide 27, Anion Gap 11.4, BUN 26 H, Creatinine 1.50 H, Estimated Creat Clear 66, Estimated GFR 46 L, Est GFR ( Amer) 56 L, Glucose 350 H, Calcium 8.5, Total Bilirubin 0.3, AST 6 L, ALT 17, Alkaline Phosphatase 156 H, Total Creatine Kinase 39, CK-MB (CK-2) 2.4, CK-MB (CK-2) Rel Index 6.2 H, Troponin I 0.05, Total Protein 6.4, Albumin 2.6 L, Globulin 3.8 H, Albumin/Globulin Ratio 0.7 L I & O for Last 24 hours: Intake & Output 07/06/18 07/07/18 07/08/18 07/09/18 11:59 11:59 11:59 11:59 Intake Total 3.125 / 3.125 Balance 3.125 / 3.125 Weight 231 lb - *Routine Neck Exam Present: supple. Absent: JVD, carotid bruit - *Routine Respiratory Exam Present: decreased breath sounds, CTA bilaterally. Absent: accessory muscle use, rales, rhonchi, wheezes - *Routine Cardiovascular Exam Present: RRR. Absent: murmur, gallop, rubs - *Routine Abdominal Exam Present: soft. Absent: tenderness, distended, guarding - *Routine Extremities Exam Absent: edema, calf tenderness - *Routine Neurological Exam Present: alert, oriented X3, moving all extremities Assessment and Plan (1) Unstable angina Current visit: Yes Status: Acute Category: Medical Code(s): I20.0 - Unstable angina (2) Bilateral pneumonia Current visit: Yes Status: Acute Qualifiers: Pneumonia type: due to unspecified organism Lung location: lower lobe of lung Qualified Code(s): J18.1 - Lobar pneumonia, unspecified organism Category: Medical Code(s): J18.9 - Pneumonia, unspecified organism (3) Hypertensive emergency Current visit: No Status: Acute Category: Medical Code(s): I16.1 - Hypertensive emergency (4) Diabetes mellitus type 2 in obese Current visit: Yes Status: Acute Category: Medical Code(s): E11.69 - Type 2 diabetes mellitus with other specified complication; E66.9 - Obesity, unspecified (5) CAD (coronary artery disease) Current visit: No Status: Chronic Qualifiers: Coronary Disease-Associated Artery/Lesion type: bypass graft [place] vs. transplanted heart: [place] heart Associated angina: without angina Qualified Code(s): I25.810 - Atherosclerosis of coronary artery bypass graft(s) without angina pectoris Category: Medical Code(s): I25.10 - Atherosclerotic heart disease of [place] coronary artery without angina pectoris (6) Ischemic cardiomyopathy Current visit: No Status: Chronic Category: Medical Code(s): I25.5 - Ischemic cardiomyopathy (7) Mitral valve regurgitation Current visit: No Status: Chronic Qualifiers: Cardiac valve disease etiology: etiology unspecified Qualified Code(s): I34.0 - Nonrheumatic mitral (valve) insufficiency Category: Medical Code(s): I34.0 - Nonrheumatic mitral (valve) insufficiency - Assessment and plan all Dx Assessment and Plan for all problems:: 1. Agree with admission. 2. We will start patient on nitroglycerin paste 1/2 inch and monitor blood pressure closely. 3. Continue dual antiplatelet therapy with aspirin and Brilinta. We will also give a dose of Lovenox therapy since the patient's chest pain has resolved with plans for cardiac catheterization in the a.m. or sooner if chest discomfort/anxiety feeling recurs. 4. Continue carvedilol and amlodipine therapy for antianginal effects. 5. X-ray reveals no evidence of congestive heart failure but there is evidence of possible bilateral pneumonia. Patient is afebrile at this time. His BNP is 1060. He is on Lasix therapy.
--- NOTE | 2018-07-08 13:26 | Pharmacy Consult Notes ---
[facility] Pharmacy VTE Monitoring - Patient Demographics Admission date: 07/08/18 Report Date: 07/08/18 Time: 13:26 Allergies/Adverse Reactions: Patient Allergies No Known Allergies Allergy (Verified 07/04/18 23:54) Height: 1.73 m Weight: 104.78 kg Patient Problems: Current Active Problems Bilateral pneumonia (Acute) Unstable angina (Acute) Diabetes mellitus type 2 in obese (Acute) - VTE Risk Labs: VTE Related Lab Results Hgb 11.5 g/dL (14.1-18.0) L 07/08/18 09:10 Hct 35.8 % (42.0-52.0) L 07/08/18 09:10 Plt Count 317 K/mm3 (142-424) 07/08/18 09:10 PT 9.9 seconds (9.4-11.8) 07/08/18 08:30 INR 0.96 (0.9-1.1) 07/08/18 08:30 BUN 26 mg/dL (7-18) H 07/08/18 09:40 Creatinine 1.50 mg/dL (0.70-1.30) H 07/08/18 09:40 Estimated Creat Clear 66 mL/min (0-300) 07/08/18 09:40 Clinical Trial Participant: No - Prophylaxis VTE Prophylaxis Ordered?: Yes Types of VTE Prophylaxis: TEDS Knee High
--- NOTE | 2018-07-08 14:37 | Pharmacy Consult Notes ---
- Pharmacy Consult Date: 07/08/18 Time: 14:36 Referring provider: DR. MCKENZIE Reason for Consult:: VANCOMYCIN DOSING Allergies and ADEs:: Allergies Allergy/AdvReac Type Severity Reaction Status Date / Time No Known Allergies Allergy Verified 07/04/18 23:54 Home Medications:: Home Medications Medication Instructions Recorded Confirmed Type ascorbic acid (vitamin C) 500 mg 500 mg PO DAILY tab 10/30/17 07/08/18 History tablet atorvastatin 40 mg tablet 40 mg PO HS 10/30/17 07/08/18 History carbamazepine 100 mg chewable 100 mg PO BID tab 10/30/17 07/08/18 History tablet ferrous sulfate 325 mg (65 mg 325 mg PO BID tab 10/30/17 07/08/18 History iron) tablet hydrocodone 5 mg-acetaminophen 325 1 tab PO DAILYP PRN 10/30/17 07/08/18 History mg tablet levothyroxine 50 mcg tablet 50 mcg PO DAILY tab 10/30/17 07/08/18 History losartan 100 mg tablet 100 mg PO DAILY 10/30/17 07/08/18 History magnesium hydroxide 400 mg/5 mL 30 ml PO Q72H PRN 10/30/17 07/08/18 History oral suspension metformin 1,000 mg tablet 1,000 mg PO BID 10/30/17 07/08/18 History ticagrelor 90 mg tablet 90 mg PO BID 10/30/17 07/08/18 History Isosorbide Mononitrate [Imdur 30mg 30 mg PO DAILY 12/30/17 07/08/18 History ER tablet] furosemide 20 mg tablet 20 mg PO DAILY tab 01/15/18 07/08/18 History Duloxetine HCl [Cymbalta 30mg 30 mg PO DAILY 04/12/18 07/08/18 History capsule] Insulin NPH Hum/Reg Insulin Hm 40 unit SQ BID 04/12/18 07/08/18 History [Novolin 70-30 100 Unit/ml Vial] Loperamide HCl [Loperamide] 2 mg PO Q6HP PRN 04/12/18 07/08/18 History hydroCHLOROthiazide [HCTZ 12.5mg 12.5 mg PO DAILY 04/12/18 07/08/18 History capsule] Carvedilol [Coreg 25mg Tablet] 37.5 mg PO BID 07/04/18 07/08/18 History Amlodipine Besylate [Norvasc 2.5mg 2.5 mg PO DAILY 07/08/18 07/08/18 History tablet] Height: 1.73 m Weight: 102.965 kg Laboratory Results:: Laboratory Results - last 24 hr 07/08/18 08:30: PT 9.9, INR 0.96 07/08/18 08:50: Lactate 2.3 H 07/08/18 09:10: WBC 11.3 H, RBC 3.67 L, Hgb 11.5 L, Hct 35.8 L, MCV 97.6 H, MCH 31.4 H, MCHC 32.2, RDW 14.7, Plt Count 317, MPV 7.8, Neut % (Auto) 82.1 H, Lymph % (Auto) 9.0 L, [place] % (Auto) 6.4, Eos % (Auto) 2.3, Baso % (Auto) 0.2, Neut # (Auto) 9.3 H, Lymph # (Auto) 1.0, [place] # (Auto) 0.7, Eos # (Auto) 0.3, Baso # (Auto) 0.0 07/08/18 09:10: B-Natriuretic Peptide 1060 H 07/08/18 09:35: Specimen Source L. jewels, O2 % 2 lpm, ABG pH 7.41, ABG pCO2 37.1, ABG pO2 107.6 H, ABG HCO3 22.7, ABG Total CO2 23.9, ABG O2 Saturation 98, ABG Base Excess -2.0, Cameron Test n/a 07/08/18 09:40: Sodium 138, Potassium 4.4, Chloride 104, Carbon Dioxide 27, Anion Gap 11.4, BUN 26 H, Creatinine 1.50 H, Estimated Creat Clear 66, Estimated GFR 46 L, Est GFR ( Amer) 56 L, Glucose 350 H, Calcium 8.5, Total Bilirubin 0.3, AST 6 L, ALT 17, Alkaline Phosphatase 156 H, Total Creatine Kinase 39, CK-MB (CK-2) 2.4, CK-MB (CK-2) Rel Index 6.2 H, Troponin I 0.05, Total Protein 6.4, Albumin 2.6 L, Globulin 3.8 H, Albumin/Globulin Ratio 0.7 L 07/08/18 13:23: Lactate 2.4 H Medical History: Reports:: Cardiomyopathy, Coronary Artery Disease, Diabetes Mellitus Type 2, Hypertension Denies:: Cancer, Diabetes Mellitus Type 1, Internal Pacemaker, MRSA Assessment and Plan (1) Unstable angina Current visit: Yes Status: Acute Category: Medical Code(s): I20.0 - Unstable angina (2) Bilateral pneumonia Current visit: Yes Status: Acute Qualifiers: Pneumonia type: due to unspecified organism Lung location: lower lobe of lung Qualified Code(s): J18.1 - Lobar pneumonia, unspecified organism Category: Medical Code(s): J18.9 - Pneumonia, unspecified organism (3) Hypertensive emergency Current visit: No Status: Acute Category: Medical Code(s): I16.1 - Hypertensive emergency (4) Diabetes mellitus type 2 in obese Current visit: Yes Status: Acute Category: Medical Code(s): E11.69 - Type 2 diabetes mellitus with other specified complication; E66.9 - Obesity, unspecified (5) CAD (coronary artery disease) Current visit: No Status: Chronic Qualifiers: Coronary Disease-Associated Artery/Lesion type: bypass graft [place] vs. transplanted heart: [place] heart Associated angina: without angina Qualified Code(s): I25.810 - Atherosclerosis of coronary artery bypass graft(s) without angina pectoris Category: Medical Code(s): I25.10 - Atherosclerotic heart disease of [place] coronary artery without angina pectoris (6) Ischemic cardiomyopathy Current visit: No Status: Chronic Category: Medical Code(s): I25.5 - Ischemic cardiomyopathy (7) Mitral valve regurgitation Current visit: No Status: Chronic Qualifiers: Cardiac valve disease etiology: etiology unspecified Qualified Code(s): I34.0 - Nonrheumatic mitral (valve) insufficiency Category: Medical Code(s): I34.0 - Nonrheumatic mitral (valve) insufficiency - Assessment and plan all Dx Assessment and Plan for all problems:: BASED ON PATIENT FACTORS, RECOMMEND VANCOMYCIN 2 GM IV ONCE, FOLLOWED BY VANCOMYCIN 1750 MG IV Q24H. PHARMACY WILL FOLLOW DAILY AND ADJUST APPROPRIATE.
[2018-07-09 06:43] LABS: Basophils % 0.4 % (0.1-2.0); Eosinophils # 0.2 K/mm3 (0.0-0.4); Eosinophils % 2.1 % (0.1-12.0); Mean Corpuscular Hemoglobin 31.6 pg (27.0-31.2); Monocytes # 0.7 K/mm3 (0.1-1.0); Neutrophils # 6.8 K/mm3 (1.8-7.8); Red Cell Distribution Width 14.8 % (11.5-17.5); White Blood Count 8.9 K/mm3 (4.8-10.8)
[2018-07-09 06:54] LABS: Prothrombin Time 10.3 seconds (9.4-11.8)
[2018-07-09 06:56] LABS: Hemoglobin 10.5 g/dL (14.1-18.0); Lymphocytes # 1.3 K/mm3 (0.7-4.5); Mean Corpuscular HGB Conc 32.7 g/dL (31.8-35.4); Mean Corpuscular Volume 96.6 fl (80-94); Mean Platelet Volume 7.6 fl (7.4-10.4); Monocytes % 7.9 % (1.7-9.3); Neutrophils % 75.6 % (37.0-80.0); Platelet Count 294 K/mm3 (142-424); Red Blood Count 3.32 M/mm3 (4.60-6.20)
[2018-07-09 06:59] LABS: Albumin Level 2.5 gm/dL (3.4-5.0); Albumin/Globulin Ratio 0.7 (1.1-1.8); Anion Gap 12.4 mEq/L (5-15); Bilirubin,Total 0.4 mg/dL (0.2-1.0); Calcium 8.3 mg/dL (8.5-10.1); Globulin 3.6 gm/dl (1.3-3.2); Phosphorous 2.9 mg/dL (2.4-4.9); Potassium 4.4 mmoL/L (3.5-5.1); Total Protein,Serum 6.1 gm/dL (6.4-8.2)
--- NOTE | 2018-07-09 07:55 | Progress Note ---
Subjective Date: 07/09/18 Time: 07:53 Principal diagnosis: chest pain Interval history: 73-year-old white male admitted for unstable angina pectoris that stabilized with nitroglycerin in the ER yesterday. Patient was awakened with chest discomfort earlier this morning which coincided with markedly elevated blood pressure. This improved with nitroglycerin drip. At this time the patient is comfortable with no chest pain. Exam Vital signs and Labs for Last 24 Hours: Temp Pulse Resp BP Pulse Ox 98.8 F 80 18 178/95 95 07/09/18 07:44 07/09/18 05:28 07/09/18 02:45 07/09/18 02:45 07/09/18 02:40 Laboratory Results - last 24 hr 07/08/18 08:30: PT 9.9, INR 0.96 07/08/18 08:50: Lactate 2.3 H 07/08/18 09:10: WBC 11.3 H, RBC 3.67 L, Hgb 11.5 L, Hct 35.8 L, MCV 97.6 H, MCH 31.4 H, MCHC 32.2, RDW 14.7, Plt Count 317, MPV 7.8, Neut % (Auto) 82.1 H, Lymph % (Auto) 9.0 L, [place] % (Auto) 6.4, Eos % (Auto) 2.3, Baso % (Auto) 0.2, Neut # (Auto) 9.3 H, Lymph # (Auto) 1.0, [place] # (Auto) 0.7, Eos # (Auto) 0.3, Baso # (Auto) 0.0 07/08/18 09:10: B-Natriuretic Peptide 1060 H 07/08/18 09:35: Specimen Source LDenzel donis, O2 % 2 lpm, ABG pH 7.41, ABG pCO2 37.1, ABG pO2 107.6 H, ABG HCO3 22.7, ABG Total CO2 23.9, ABG O2 Saturation 98, ABG Base Excess -2.0, Cameron Test n/a 07/08/18 09:40: Sodium 138, Potassium 4.4, Chloride 104, Carbon Dioxide 27, Anion Gap 11.4, BUN 26 H, Creatinine 1.50 H, Estimated Creat Clear 66, Estimated GFR 46 L, Est GFR ( Amer) 56 L, Glucose 350 H, Calcium 8.5, Total Bilirubin 0.3, AST 6 L, ALT 17, Alkaline Phosphatase 156 H, Total Creatine Kinase 39, CK-MB (CK-2) 2.4, CK-MB (CK-2) Rel Index 6.2 H, Troponin I 0.05, Total Protein 6.4, Albumin 2.6 L, Globulin 3.8 H, Albumin/Globulin Ratio 0.7 L 07/08/18 13:23: Lactate 2.4 H 07/08/18 14:58: Troponin I 0.04 07/08/18 16:20: Lactate 3.1 H 07/08/18 17:04: POC Glucose 319 H* 07/08/18 20:33: POC Glucose 274 H 07/08/18 21:00: Troponin I 0.04 07/09/18 03:15: Troponin I 0.02 07/09/18 06:09: POC Glucose 252 H 07/09/18 06:25: WBC 8.9, RBC 3.32 L, Hgb 10.5 L, Hct 32.0 L, MCV 96.6 H, MCH 31.6 H, MCHC 32.7, RDW 14.8, Plt Count 294, MPV 7.6, Neut % (Auto) 75.6, Lymph % (Auto) 14.0, [place] % (Auto) 7.9, Eos % (Auto) 2.1, Baso % (Auto) 0.4, Neut # (Auto) 6.8, Lymph # (Auto) 1.3, [place] # (Auto) 0.7, Eos # (Auto) 0.2, Baso # (Auto) 0.0 07/09/18 06:25: PT 10.3, INR 1.00 07/09/18 06:25: Sodium 140, Potassium 4.4, Chloride 105, Carbon Dioxide 27, Anion Gap 12.4, BUN 28 H, Creatinine 1.73 H, Estimated Creat Clear 56, Estimated GFR 39 L, Est GFR ( Amer) 47 L, Glucose 260 H D, Calcium 8.3 L, Phosphorus 2.9, Magnesium 1.6, Total Bilirubin 0.4, AST 7 L, ALT 17, Alkaline Phosphatase 140 H, Total Protein 6.1 L, Albumin 2.5 L, Globulin 3.6 H, Albumin/Globulin Ratio 0.7 L 07/09/18 06:35: Urine Color Yellow, Urine Appearance Clear, Urine pH 6.0, Ur Specific [place] 1.015, Urine Protein 2+, Urine Glucose (UA) Negative, Urine Ketones Negative, Urine Blood Negative, Urine Nitrate Negative, Urine Bilirubin Negative, Urine Urobilinogen 0.2, Ur Leukocyte Esterase Negative I & O for Last 24 hours: Intake & Output 07/06/18 07/07/18 07/08/18 07/09/18 11:59 11:59 11:59 11:59 Intake Total 3.125 / 3.125 862 / 862 Output Total 1450 / 1450 Balance 3.125 / 3.125 -588 / -588 Weight 231 lb 229 lb - *Routine Respiratory Exam Present: CTA bilaterally. Absent: accessory muscle use, rales, rhonchi, wheezes - *Routine Cardiovascular Exam Present: RRR. Absent: murmur, gallop, rubs - *Routine Neurological Exam Present: alert, oriented X3, moving all extremities Progress Note: A&P (1) Unstable angina Status: Acute Current Visit: Yes (2) Bilateral pneumonia Status: Acute Current Visit: Yes (3) Hypertensive emergency Status: Acute Current Visit: No (4) Diabetes mellitus type 2 in obese Status: Acute Current Visit: Yes (5) CAD (coronary artery disease) Status: Chronic Current Visit: No (6) Ischemic cardiomyopathy Status: Chronic Current Visit: No (7) Mitral valve regurgitation Status: Chronic Current Visit: No Assessment and Plan for All Diagnoses:: 1. Patient is going for cardiac catheterization today. 2. We will increase Norvasc to 5 mg and give a dose now as well as his scheduled carvedilol 37.5 mg. 3. Further recommendations to follow.
--- NOTE | 2018-07-09 09:01 | History & Physical Report ---
*Admission Date: 07/08/18 *Chief complaint: chest pain *History of present illness: 73-year-old white male with known coronary artery disease/coronary artery stenting in 2017, diabetes, hypertension and hyperlipidemia was transported to the emergency department for complaint of chest pain. Patient was noted to have an elevated blood pressure (systolic pressure greater than 200 mm Hg) and was given several nitroglycerin both en route and in ER due to the chest pain and elevated blood pressure. No significant improvement until patient received nitroglycerin drip in the emergency department. Patient's blood pressure did drop significantly which prompted discontinuation of nitroglycerin drip. His chest discomfort did resolve with the nitroglycerin drip. EKGs reveal some subtle changes in the lateral leads suggestive of ischemia. His initial troponin is 0.05. The patient reportedly has been seen multiple times within the last 2 weeks for complaint of chest discomfort. Each time his troponins have returned within normal limits. Patient does reside at a shelter. The EKG changes did improve after the glycerin drip. At the time of my evaluation the patient is in the ER and comfortable with complaint of chest discomfort or the "nervous feeling" that has had in the past. Cardiology consulted for evaluation and recommendations. Patient does continue on aspirin and Brilinta due to coronary stenting in 2017. [facility] History I have reviewed the patient's past medical history: Yes Medical History: Reports:: Cardiomyopathy, Coronary Artery Disease, Diabetes Mellitus Type 2, Hypertension Denies:: Cancer, Diabetes Mellitus Type 1, Internal Pacemaker, MRSA Other Medical History: Reports: Anemia, Hypothyroidism Laterality Cases: Bilateral: Tonsillectomy Other Surgeries: Yes: Colonoscopy, Other. No: Pacemaker Amputation: No Fractures: No - *Social History Educational Level: Attended College Smoking Status: Unknown if ever smoked Tobacco Type: cigarettes Alcohol Intake: never Alcohol Intake Frequency:: other Substance Use Type: denies use Occupational Status: unemployed, disabled Housing: shelter - Psychiatric History Expresses thoughts of harming self/others: None Suicide Plan Description: No Plan *Family Hx:: Cancer, Stroke Review of Systems - Review of Systems Review of systems:: pertinent systems reviewed and negative unless documented below - Constitutional Denies headache(s) - Eyes Denies change in vision - ENT Denies change in voice, Denies dizziness - *Cardiovascular Reports chest pain at rest, Reports chest pain with activity, Reports shortness of breath - *Respiratory Reports chest congestion, Reports shortness of breath - *Gastrointestinal Denies nausea, Denies vomiting - *Genitourinary Denies urinary frequency - *Musculoskeletal Denies loss of height - Integumentary/Breasts Denies rash - *Neurologic Denies loss of vision, Denies fainting, Denies dizziness - Psychiatric Denies anxiety - Endocrine Denies flushing - Hematologic/Lymphatic Denies enlarged lymph nodes - Allergic/Immunologic Denies lip swelling Meds Home Medications Medication Instructions Recorded Confirmed Type ascorbic acid (vitamin C) 500 mg 500 mg PO DAILY tab 10/30/17 07/08/18 History tablet atorvastatin 40 mg tablet 40 mg PO HS 10/30/17 07/08/18 History carbamazepine 100 mg chewable 100 mg PO BID tab 10/30/17 07/08/18 History tablet ferrous sulfate 325 mg (65 mg 325 mg PO BID tab 10/30/17 07/08/18 History iron) tablet hydrocodone 5 mg-acetaminophen 325 1 tab PO DAILYP PRN 10/30/17 07/08/18 History mg tablet levothyroxine 50 mcg tablet 50 mcg PO DAILY tab 10/30/17 07/08/18 History losartan 100 mg tablet 100 mg PO DAILY 10/30/17 07/08/18 History magnesium hydroxide 400 mg/5 mL 30 ml PO Q72H PRN 10/30/17 07/08/18 History oral suspension metformin 1,000 mg tablet 1,000 mg PO BID 10/30/17 07/08/18 History ticagrelor 90 mg tablet 90 mg PO BID 10/30/17 07/08/18 History Isosorbide Mononitrate [Imdur 30mg 30 mg PO DAILY 12/30/17 07/08/18 History ER tablet] furosemide 20 mg tablet 20 mg PO DAILY tab 01/15/18 07/08/18 History Duloxetine HCl [Cymbalta 30mg 30 mg PO DAILY 04/12/18 07/08/18 History capsule] Insulin NPH Hum/Reg Insulin Hm 40 unit SQ BID 04/12/18 07/08/18 History [Novolin 70-30 100 Unit/ml Vial] Loperamide HCl [Loperamide] 2 mg PO Q6HP PRN 04/12/18 07/08/18 History hydroCHLOROthiazide [HCTZ 12.5mg 12.5 mg PO DAILY 04/12/18 07/08/18 History capsule] Carvedilol [Coreg 25mg Tablet] 37.5 mg PO BID 07/04/18 07/08/18 History Amlodipine Besylate [Norvasc 2.5mg 2.5 mg PO DAILY 07/08/18 07/08/18 History tablet] Allergies Allergy/AdvReac Type Severity Reaction Status Date / Time No Known Allergies Allergy Verified 07/04/18 23:54 Exam Vital signs and Labs for Last 24 Hours: Temp Pulse Resp BP Pulse Ox 98.8 F 93 H 18 187/106 98 07/09/18 07:44 07/09/18 07:30 07/09/18 07:00 07/09/18 07:00 07/09/18 07:30 Laboratory Results - last 24 hr 07/08/18 08:30: PT 9.9, INR 0.96 07/08/18 08:50: Lactate 2.3 H 07/08/18 09:10: WBC 11.3 H, RBC 3.67 L, Hgb 11.5 L, Hct 35.8 L, MCV 97.6 H, MCH 31.4 H, MCHC 32.2, RDW 14.7, Plt Count 317, MPV 7.8, Neut % (Auto) 82.1 H, Lymph % (Auto) 9.0 L, [place] % (Auto) 6.4, Eos % (Auto) 2.3, Baso % (Auto) 0.2, Neut # (Auto) 9.3 H, Lymph # (Auto) 1.0, [place] # (Auto) 0.7, Eos # (Auto) 0.3, Baso # (Auto) 0.0 07/08/18 09:10: B-Natriuretic Peptide 1060 H 07/08/18 09:35: Specimen Source L. bachial, O2 % 2 lpm, ABG pH 7.41, ABG pCO2 37.1, ABG pO2 107.6 H, ABG HCO3 22.7, ABG Total CO2 23.9, ABG O2 Saturation 98, ABG Base Excess -2.0, Cameron Test n/a 07/08/18 09:40: Sodium 138, Potassium 4.4, Chloride 104, Carbon Dioxide 27, Anion Gap 11.4, BUN 26 H, Creatinine 1.50 H, Estimated Creat Clear 66, Estimated GFR 46 L, Est GFR ( Amer) 56 L, Glucose 350 H, Calcium 8.5, Total Bilirubin 0.3, AST 6 L, ALT 17, Alkaline Phosphatase 156 H, Total Creatine Kinase 39, CK-MB (CK-2) 2.4, CK-MB (CK-2) Rel Index 6.2 H, Troponin I 0.05, Total Protein 6.4, Albumin 2.6 L, Globulin 3.8 H, Albumin/Globulin Ratio 0.7 L 07/08/18 13:23: Lactate 2.4 H 07/08/18 14:58: Troponin I 0.04 07/08/18 16:20: Lactate 3.1 H 07/08/18 17:04: POC Glucose 319 H* 07/08/18 20:33: POC Glucose 274 H 07/08/18 21:00: Troponin I 0.04 07/09/18 03:15: Troponin I 0.02 07/09/18 06:09: POC Glucose 252 H 07/09/18 06:25: WBC 8.9, RBC 3.32 L, Hgb 10.5 L, Hct 32.0 L, MCV 96.6 H, MCH 31.6 H, MCHC 32.7, RDW 14.8, Plt Count 294, MPV 7.6, Neut % (Auto) 75.6, Lymph % (Auto) 14.0, [place] % (Auto) 7.9, Eos % (Auto) 2.1, Baso % (Auto) 0.4, Neut # (Auto) 6.8, Lymph # (Auto) 1.3, [place] # (Auto) 0.7, Eos # (Auto) 0.2, Baso # (Auto) 0.0 07/09/18 06:25: PT 10.3, INR 1.00 07/09/18 06:25: Sodium 140, Potassium 4.4, Chloride 105, Carbon Dioxide 27, Anion Gap 12.4, BUN 28 H, Creatinine 1.73 H, Estimated Creat Clear 56, Estimated GFR 39 L, Est GFR ( Amer) 47 L, Glucose 260 H D, Calcium 8.3 L, Phosphorus 2.9, Magnesium 1.6, Total Bilirubin 0.4, AST 7 L, ALT 17, Alkaline Phosphatase 140 H, Total Protein 6.1 L, Albumin 2.5 L, Globulin 3.6 H, Albumin/Globulin Ratio 0.7 L 07/09/18 06:35: Urine Color Yellow, Urine Appearance Clear, Urine pH 6.0, Ur Specific [place] 1.015, Urine Protein 2+, Urine Glucose (UA) Negative, Urine Ketones Negative, Urine Blood Negative, Urine Nitrate Negative, Urine Bilirubin Negative, Urine Urobilinogen 0.2, Ur Leukocyte Esterase Negative, Urine RBC None, Urine WBC Occasional, Ur Squamous Epith Cells Occasional, Urine Bacteria 1+ I & O for Last 24 hours: Intake & Output 07/06/18 07/07/18 07/08/18 07/09/18 11:59 11:59 11:59 11:59 Intake Total 3.125 / 3.125 862 / 862 Output Total 1850 / 1850 Balance 3.125 / 3.125 -988 / -988 Weight 231 lb 229 lb - *Routine HEENT Exam Head: Present: normocephalic Eye: Present: PERRL ENT: Present: mucous membranes moist - *Routine Neck Exam Present: supple. Absent: lymphadenopathy - *Routine Respiratory Exam Present: CTA bilaterally - *Routine Cardiovascular Exam Present: RRR - *Routine Abdominal Exam Present: soft, normoactive bowel sounds. Absent: tenderness - *Routine Extremities Exam Absent: cyanosis, clubbing, edema - *Routine Skin Exam Present: warm. Absent: rash - *Routine Neurological Exam Present: alert, oriented X3 Assessment and Plan (1) Unstable angina Current visit: Yes Status: Acute Category: Medical Code(s): I20.0 - Unstable angina (2) Bilateral pneumonia Current visit: Yes Status: Acute Qualifiers: Pneumonia type: due to unspecified organism Lung location: lower lobe of lung Qualified Code(s): J18.1 - Lobar pneumonia, unspecified organism Category: Medical Code(s): J18.9 - Pneumonia, unspecified organism (3) Hypertensive emergency Current visit: No Status: Acute Category: Medical Code(s): I16.1 - Hypertensive emergency (4) Diabetes mellitus type 2 in obese Current visit: Yes Status: Acute Category: Medical Code(s): E11.69 - Type 2 diabetes mellitus with other specified complication; E66.9 - Obesity, unspecified (5) CAD (coronary artery disease) Current visit: No Status: Chronic Qualifiers: Coronary Disease-Associated Artery/Lesion type: bypass graft [place] vs. transplanted heart: [place] heart Associated angina: without angina Qualified Code(s): I25.810 - Atherosclerosis of coronary artery bypass graft(s) without angina pectoris Category: Medical Code(s): I25.10 - Atherosclerotic heart disease of [place] coronary artery without angina pectoris (6) Ischemic cardiomyopathy Current visit: No Status: Chronic Category: Medical Code(s): I25.5 - Ischemic cardiomyopathy (7) Mitral valve regurgitation Current visit: No Status: Chronic Qualifiers: Cardiac valve disease etiology: etiology unspecified Qualified Code(s): I34.0 - Nonrheumatic mitral (valve) insufficiency Category: Medical Code(s): I34.0 - Nonrheumatic mitral (valve) insufficiency - Assessment and plan all Dx Assessment and Plan for all problems:: rounded with cindy all orders per cindy cath today
--- NOTE | 2018-07-10 07:46 | Progress Note ---
Subjective Date: 07/10/18 Time: 07:44 Principal diagnosis: chest pain Interval history: 73 yo WM sitting at bedside eating breakfast in NAD. Denies any chest pain or pressure. Some confusion noted overnight. BP elevated this AM. Telemetry reviewed without significant arrhythmias. Exam Vital signs and Labs for Last 24 Hours: Temp Pulse Resp BP Pulse Ox 97.8 F 96 H 17 181/111 98 07/09/18 20:00 07/10/18 07:37 07/10/18 02:00 07/10/18 07:37 07/10/18 07:37 Laboratory Results - last 24 hr 07/09/18 06:35: Urine RBC None, Urine WBC Occasional, Ur Squamous Epith Cells Occasional, Urine Bacteria 1+ 07/09/18 13:39: POC Glucose 294 H 07/09/18 17:50: POC Glucose 326 H* 07/09/18 20:23: POC Glucose 316 H* 07/10/18 05:26: POC Glucose 286 H I & O for Last 24 hours: Intake & Output 07/07/18 07/08/18 07/09/18 07/10/18 11:59 11:59 11:59 11:59 Intake Total 3.125 / 3.125 862 / 862 1340 / 1340 Output Total 1850 / 1850 3900 / 3900 Balance 3.125 / 3.125 -988 / -988 -2560 / -2560 Weight 231 lb 229 lb 228 lb 5 oz Microbiology Reports for the Last 24 Hours: Microbiology 07/09/18 08:40 Sputum - Expectorated Sputum Gram Stain - Final - *Routine Neck Exam Present: supple. Absent: JVD, carotid bruit - *Routine Respiratory Exam Present: CTA bilaterally. Absent: accessory muscle use, rales, rhonchi, wheezes - *Routine Cardiovascular Exam Present: RRR. Absent: murmur, gallop, rubs - *Routine Abdominal Exam Present: soft. Absent: tenderness, distended, guarding - *Routine Extremities Exam Absent: edema, calf tenderness - *Routine Neurological Exam Present: alert, oriented X3, moving all extremities Progress Note: A&P (1) Hypertensive emergency Status: Acute Current Visit: No (2) Bilateral pneumonia Status: Acute Current Visit: Yes (3) Diabetes mellitus type 2 in obese Status: Acute Current Visit: Yes (4) CAD (coronary artery disease) Status: Chronic Current Visit: No (5) Ischemic cardiomyopathy Status: Chronic Current Visit: No (6) Mitral valve regurgitation Status: Chronic Current Visit: No Assessment and Plan for All Diagnoses:: Coronary angiogram showed only mild CAD with normal LVEF. Mild pulmonary HTN. BP meds being adjusted but pt asymptomatic, OK to discharge back to [place] today. Follow up in 2 wks. Discharge med recommendations: Coreg 50 mg BID Avapro 150 mg BID (or can resume losartan 100 mg daily as he was previously taking at [place]) Norvasc 10 mg daily Imdur 30 mg daily Furosemide 20 mg daily HCTZ 12.5 mg daily Lipitor 40 mg daily Brilinta 90 mg BID Protonix 40 mg daily
--- NOTE | 2018-07-10 12:16 | Discharge Summary ---
General - General Admission date:: 07/08/18 Discharge date: 07/10/18 HPI HPI: 73-year-old white male with known coronary artery disease/coronary artery stenting in 2017, diabetes, hypertension and hyperlipidemia was transported to the emergency department for complaint of chest pain. Patient was noted to have an elevated blood pressure (systolic pressure greater than 200 mm Hg) and was given several nitroglycerin both en route and in ER due to the chest pain and elevated blood pressure. No significant improvement until patient received nitroglycerin drip in the emergency department. Patient's blood pressure did drop significantly which prompted discontinuation of nitroglycerin drip. His chest discomfort did resolve with the nitroglycerin drip. EKGs reveal some subtle changes in the lateral leads suggestive of ischemia. His initial tro ponin is 0.05. The patient reportedly has been seen multiple times within the last 2 weeks for complaint of chest discomfort. Each time his troponins have returned within normal limits. Patient does reside at a intermediate. The EKG changes did improve after the glycerin drip. At the time of my evaluation the patient is in the ER and comfortable with complaint of chest discomfort or the "nervous feeling" that has had in the past. Cardiology consulted for evaluation and recommendations. Patient does continue on aspirin and Brilinta due to coronary stenting in 2017. Hospital Course Hospital Course: pt with episodes of chest pain and had sig bp elevations while in patient requiring iv ntg and close monitoring in stepdown - he was seen by card and had card cath -percent lidocaine used to anesthetize the right anterior aspect of the wrist. The right radial artery was accessed via the Seldinger technique. A 6 Azeri sheath was placed in the right radial artery. 2.5 mg of verapamil, 800 mcg of nitroglycerin, 1mg Lidocaine and 5000 U Heparin were given through the arterial sheath. The trap catheter was also used to perform left heart catheterization, left ventriculogram and selective coronary angiogram. At the end of the procedure the sheath was removed good hemostasis was achieved using Traclet band, patient was transferred to the postop holding area in stable condition . ANGIOGRAPHIC RESULTS: 1. The left main artery normal 2. The left anterior descending artery has proximal mild luminal irregularities nothing greater than 10% 3. The circumflex artery is a large dominant vessel with mild 10% luminal irregularities 4. The right coronary artery small vestigial normal 5. The GRIDER ventriculogram reveals normal 65% 6. The left ventricular end-diastolic pressure 20 mmHg IMPRESSION: 1. Mild nonflow limiting coronary artery disease 2. Normal ejection fraction 3. Elevated LVEDP consistent with diastolic dysfunction pt with difficult bp to maintain control as he had elevated bp and had complication of cap - nary angiogram showed only mild CAD with normal LVEF. Mild pulmonary HTN. BP meds being adjusted but pt asymptomatic, OK to discharge back to [facility] today. Follow up in 2 wks. Discharge med recommendations: Coreg 50 mg BID Avapro 150 mg BID (or can resume losartan 100 mg daily as he was previously taking at [facility]) Norvasc 10 mg daily Imdur 30 mg daily Furosemide 20 mg daily HCTZ 12.5 mg daily Lipitor 40 mg daily Brilinta 90 mg BID Protonix 40 mg heraclio pt will be followed by card and pcp at nursing home - he was seen by physical therapy also Objective Vital signs: Temp Pulse Resp BP Pulse Ox 97.8 F 83 17 137/77 98 07/09/18 20:00 07/10/18 08:00 07/10/18 02:00 07/10/18 11:25 07/10/18 07:37 no acute distress, obese - *Routine HEENT Exam Head: Present: normocephalic Eye: Present: EOMI, PERRL ENT: Present: mucous membranes dry - *Routine Neck Exam Absent: JVD - *Routine Respiratory Exam Present: decreased breath sounds, rhonchi - *Routine Cardiovascular Exam Present: RRR, murmur, S4 - *Routine Abdominal Exam Present: soft - *Routine Extremities Exam Present: edema - *Routine Skin Exam Present: intact - *Routine Neurological Exam Present: alert, CN II-XII intact - Routine Psychiatric Exam Present: normal affect Results Labs on day of discharge: Labs from last 24 hours 07/10/18 07/10/18 07/10/18 11:34 10:58 05:26 POC Glucose 384 H* 286 H Vancomycin Trough 14.9 07/09/18 07/09/18 07/09/18 20:23 17:50 13:39 POC Glucose 316 H* 326 H* 294 H Vancomycin Trough Preliminary micro results at discharge 07/08/18 09:40 Blood Culture - Preliminary Blood NO GROWTH AFTER 48 HOURS 07/08/18 09:40 Blood Culture - Preliminary Blood NO GROWTH AFTER 48 HOURS DS: Diagnosis - Discharge Diagnosis (1) Hypertensive emergency Status: Acute (2) Bilateral pneumonia Status: Acute (3) Diabetes mellitus type 2 in obese Status: Acute (4) CAD (coronary artery disease) Status: Chronic (5) Ischemic cardiomyopathy Status: Chronic (6) Mitral valve regurgitation Status: Chronic (7) Renal insufficiency Status: Acute (8) Diabetes mellitus Status: Acute Discharge Plan - Patient Discharge Instructions ACTIVITY: Continue current activity DIET: continue same diet Patient Instructions: Angina, High Blood Pressure, Cardiac Catheter Cryoablation, Surgical Site Infection - Follow up Plan Disposition: Home, Self-[facility] Medications: Home Medications Medication Instructions Recorded Confirmed Type ascorbic acid (vitamin C) 500 mg 500 mg PO DAILY tab 10/30/17 07/08/18 History tablet atorvastatin 40 mg tablet 40 mg PO HS 10/30/17 07/08/18 History carbamazepine 100 mg chewable 100 mg PO BID tab 10/30/17 07/08/18 History tablet ferrous sulfate 325 mg (65 mg 325 mg PO BID tab 10/30/17 07/08/18 History iron) tablet hydrocodone 5 mg-acetaminophen 325 1 tab PO DAILYP PRN 10/30/17 07/08/18 History mg tablet levothyroxine 50 mcg tablet 50 mcg PO DAILY tab 10/30/17 07/08/18 History losartan 100 mg tablet 100 mg PO DAILY 10/30/17 07/08/18 History magnesium hydroxide 400 mg/5 mL 30 ml PO Q72H PRN 10/30/17 07/08/18 History oral suspension metformin 1,000 mg tablet 1,000 mg PO BID 10/30/17 07/08/18 History ticagrelor 90 mg tablet 90 mg PO BID 10/30/17 07/08/18 History Isosorbide Mononitrate [Imdur 30mg 30 mg PO DAILY 12/30/17 07/08/18 History ER tablet] furosemide 20 mg tablet 20 mg PO DAILY tab 01/15/18 07/08/18 History Duloxetine HCl [Cymbalta 30mg 30 mg PO DAILY 04/12/18 07/08/18 History capsule] Insulin NPH Hum/Reg Insulin Hm 40 unit SQ BID 04/12/18 07/08/18 History [Novolin 70-30 100 Unit/ml Vial] Loperamide HCl [Loperamide] 2 mg PO Q6HP PRN 04/12/18 07/08/18 History hydroCHLOROthiazide [HCTZ 12.5mg 12.5 mg PO DAILY 04/12/18 07/08/18 History capsule] Carvedilol [Coreg 25mg Tablet] 37.5 mg PO BID 07/04/18 07/08/18 History Amlodipine Besylate [Norvasc 2.5mg 2.5 mg PO DAILY 07/08/18 07/08/18 History tablet] Prescriptions/Medication Reconciliation: New Carvedilol [Coreg 25mg Tablet] 50 mg PO BID #60 tab levoFLOXacin [Levaquin 500mg tab] 500 mg PO DAILY #7 tab Amlodipine Besylate [Norvasc 10mg tablet] 10 mg PO DAILY #30 tab Pantoprazole Sodium [Protonix 40mg tablet] 40 mg PO DAILY #30 tablet.dr Continue hydrocodone 5 mg-acetaminophen 325 mg tablet 1 tab PO DAILYP PRN PRN Reason: PAIN magnesium hydroxide 400 mg/5 mL oral suspension 30 ml PO Q72H PRN PRN Reason: Constipation atorvastatin 40 mg tablet 40 mg PO HS ferrous sulfate 325 mg (65 mg iron) tablet 325 mg PO BID tab levothyroxine 50 mcg tablet 50 mcg PO DAILY tab losartan 100 mg tablet 100 mg PO DAILY metformin 1,000 mg tablet 1,000 mg PO BID ascorbic acid (vitamin C) 500 mg tablet 500 mg PO DAILY tab furosemide 20 mg tablet 20 mg PO DAILY tab ticagrelor 90 mg tablet 90 mg PO BID carbamazepine 100 mg chewable tablet 100 mg PO BID tab Duloxetine HCl [Cymbalta 30mg capsule] 30 mg PO DAILY Loperamide HCl [Loperamide] 2 mg PO Q6HP PRN PRN Reason: Diarrhea Insulin NPH Hum/Reg Insulin Hm [Novolin 70-30 100 Unit/ml Vial] 40 unit SQ BID Isosorbide Mononitrate [Imdur 30mg ER tablet] 30 mg PO DAILY hydroCHLOROthiazide [HCTZ 12.5mg capsule] 12.5 mg PO DAILY Discontinued Carvedilol [Coreg 25mg Tablet] 37.5 mg PO BID Amlodipine Besylate [Norvasc 2.5mg tablet] 2.5 mg PO DAILY
== END 2018-07-10 14:25 | disposition home or self-care (01) ==
LOC: ER 08:27 → 2ND 11:36 → ICU 07-09 15:43
PROVIDERS: ADMIT Emergency Medicine; ATTEND Emergency Medicine

== ENCOUNTER 2018-08-16 01:41 | Observation (INO) ==
--- NOTE | 2018-08-16 01:54 | Emergency Department Note ---
ED Disposition Clinical Impression: Elevated troponin Chest pain Qualifiers: Chest pain type: precordial pain Qualified Code(s): R07.2 - Precordial pain UTI (urinary tract infection) Qualifiers: Urinary tract infection type: site unspecified Hematuria presence: without hematuria Qualified Code(s): N39.0 - Urinary tract infection, site not specified Disposition: Still a Patient Condition on Discharge: Fair - Critical Care Critical Care Time: No Attestation: On , the high probability of a clinically significant, sudden or life threatening deterioration of the following system(s) required my full and direct attention, intervention and personal management. The time I documented below is in addition to time spent performing reported procedures but includes the following listed in this critical care notation. Medical Decision Making - Yogesh Inquiry Pt receiving controlled substance: No Vital Signs: 08/16/18 01:46 08/16/18 02:11 08/16/18 02:50 Temperature 100.2 F H Temperature Source Oral Pulse Rate [Right] 109 H 113 H 106 H Respiratory Rate 22 17 24 Blood Pressure [Right Arm] 157/93 H 167/95 H 167/86 H Blood Pressure Mean [Right Arm] 114 119 113 Blood Pressure Source [Right Arm] Automatic Cuff Blood Pressure Position [Right Arm] Sitting 02 Sat by Pulse Oximetry 96 97 96 Oxygen Delivery Method Room Air Room Air Room Air 08/16/18 03:12 Temperature 98.8 F Temperature Source Oral Pulse Rate [Right] 103 H Respiratory Rate 22 Blood Pressure [Right Arm] 150/87 H Blood Pressure Mean [Right Arm] 108 Blood Pressure Source [Right Arm] Blood Pressure Position [Right Arm] 02 Sat by Pulse Oximetry 96 Oxygen Delivery Method Room Air - Lab Data Lab Results 08/16/18 01:40: WBC 12.8 H, RBC 3.73 L, Hgb 11.8 L, Hct 36.1 L, MCV 96.7 H, MCH 31.6 H, MCHC 32.7, RDW 15.0, Plt Count 326, MPV 7.2 L, Neut % (Auto) 84.6 H, Lymph % (Auto) 6.9 L, [place]yer % (Auto) 7.7, Eos % (Auto) 0.8, Baso % (Auto) 0.2, Neut # (Auto) 10.8 H, Lymph # (Auto) 0.9, Sawyer # (Auto) 1.0, Eos # (Auto) 0.1, Baso # (Auto) 0.0 08/16/18 01:40: Sodium 137, Potassium 4.3, Chloride 102, Carbon Dioxide 21, Anion Gap 18.3 H, BUN 37 H, Creatinine 1.84 H, Estimated Creat Clear 55, Estimated GFR 36 L, Est GFR ( Amer) 44 L, Glucose 251 H, Calcium 8.8 08/16/18 01:40: Troponin I 0.11 H 08/16/18 02:00: Lactate 1.7 08/16/18 02:00: Total Bilirubin 0.5, Direct Bilirubin 0.1, Indirect Bilirubin 0.4, AST 7 L, ALT 21, Alkaline Phosphatase 152 H, Total Protein 7.1, Albumin 2.7 L 08/16/18 02:00: TSH 4.37 H, Free T4 Index 1.4 L, Thyroxine (T4) 3.7 L, T3 Uptake 37 08/16/18 02:13: Influenza Type A Ag Negative, Influenza Type B Ag Negative 08/16/18 02:40: Urine Color Yellow, Urine Appearance Clear, Urine pH 5.5, Ur Specific [place] 1.025, Urine Protein 2+, Urine Glucose (UA) Negative, Urine Ketones Negative, Urine Blood Trace-i, Urine Nitrate Negative, Urine Bilirubin Negative, Urine Urobilinogen 0.2, Ur Leukocyte Esterase Negative, Urine RBC 3-5, Urine WBC 10-20, Ur Squamous Epith Cells 10-20, Amorphous Sediment Trace Result diagrams: 08/16/18 01:40 08/16/18 01:40 Orders (Tests/Meds): ED MEDICATIONS Generic Name Dose Route Start Last Admin Trade Name Freq PRN Reason Stop Dose Admin Sodium Chloride 1,000 mls @ 999 mls/hr 08/16/18 02:45 08/16/18 02:43 Sod Chlor 0.9% 1000ml Bag IV 08/16/18 03:45 999 mls/hr .Q1H1M CINDY Administration Ceftriaxone Sodium 1 gm/ 50 mls @ 100 mls/hr 08/16/18 03:15 08/16/18 03:10 Sodium Chloride IV 08/30/18 03:14 100 mls/hr Q24H CINDY Administration Protocol Discontinued Medications Generic Name Dose Route Start Last Admin Trade Name Freq PRN Reason Stop Dose Admin Acetaminophen 650 mg 08/16/18 01:59 08/16/18 02:02 Acetaminophen 325mg Tab PO 08/16/18 02:00 650 mg ONCE ONE Administration ORDERS Category Date Time Status Chest XR -- portable [XR chest portable] Stat Exams 08/16/18 01:54 Taken D-Dimer Stat Lab 08/16/18 01:40 Received Urinalysis and Microscopic Stat Lab 08/16/18 02:40 Ordered Blood Culture Stat Micro 08/16/18 02:04 Ordered Urine Culture Stat Micro 08/16/18 02:40 Received ECG Request by /Jake Stat Y 08/16/18 01:54 Ordered - Radiology Data #1 Image(s): Chest Image Reviewed: Yes I reviewed the patient's radiology image Mild increased bibasilar markings - ECG Data Tracing #1 EKG interpreted by Peña Nieto MD: Rhythm: sinus tachycardia Rate: 115 [place]: Left Ectopy: none Conduction: normal ST Segment Changes: Nonspecific T Wave Changes: Nonspecific Q Waves: none LVH Prior electrocardiagrams reviewed. No change from prior tracings. - Physician Consults Physician Consulted: Fernando Vazquez Time: 03:05 Reason -: Admission Comment/Response: Agrees to admit the patient to the hospital. We discussed the patient's clinical information, including history, exam, laboratory and radiology results and ED course. Per hospital procedure, I will write temporary bridge inpatient orders on the patient. Specific orders requested by the admitting physician: Rocephin for possible UTI, serial troponins. We discussed workup for pulmonary embolism. Requests d-dimer. If greater than 400 treat with Lovenox and will get VQ scan during admission since est GFR is low. No cardiology consult tonight. Medical Decision Narrative: Records reviewed. Admitted for chest pain here last month. Had coronary angiogram: ANGIOGRAPHIC RESULTS: 1. The left main artery normal 2. The left anterior descending artery has proximal mild luminal irregularities nothing greater than 10% 3. The circumflex artery is a large dominant vessel with mild 10% luminal irregularities 4. The right coronary artery small vestigial normal 5. The GRIDER ventriculogram reveals normal 65% 6. The left ventricular end-diastolic pressure 20 mmHg IMPRESSION: 1. Mild nonflow limiting coronary artery disease 2. Normal ejection fraction 3. Elevated LVEDP consistent with diastolic dysfunction PLAN: 1. Medical management Dictated By: Prabhakar Ospina MD Signed By: <Electronically signed by Prabhakar Ospina MD in [place]> 07/09/18 1223 General Adult HPI - General Chief complaint: Chest Pain Stated complaint: Chest pain Time Seen by Provider: 08/16/18 01:54 - History of Present Illness HPI narrative: Poor historian. Brought in by ambulance from [facility] with reported history of chest pain. Given NTG and ASA during transport. The patient at this time says he is not experiencing any pain. He describes the chest pain that he had earlier as "shortness of breath". He says it was in the center or left side of his chest. He denies nausea, vomiting. Says that he has had some diarrhea. Denies cough or cold symptoms or urinary symptoms. - Related Data Home Medications Medication Instructions Recorded Confirmed ascorbic acid (vitamin C) 500 mg 500 mg PO DAILY tab 10/30/17 08/16/18 tablet atorvastatin 40 mg tablet 40 mg PO HS 10/30/17 08/16/18 ferrous sulfate 325 mg (65 mg 325 mg PO BID tab 10/30/17 08/16/18 iron) tablet hydrocodone 5 mg-acetaminophen 325 1 tab PO DAILYP PRN 10/30/17 08/16/18 mg tablet levothyroxine 50 mcg tablet 50 mcg PO DAILY tab 10/30/17 08/16/18 losartan 100 mg tablet 100 mg PO DAILY 10/30/17 08/16/18 magnesium hydroxide 400 mg/5 mL 30 ml PO Q72H PRN 10/30/17 08/16/18 oral suspension metformin 1,000 mg tablet 1,000 mg PO BID 10/30/17 08/16/18 ticagrelor 90 mg tablet 90 mg PO BID 10/30/17 08/16/18 Isosorbide Mononitrate [Imdur 30mg 30 mg PO DAILY 12/30/17 08/16/18 ER tablet] furosemide 20 mg tablet 20 mg PO DAILY tab 01/15/18 08/16/18 Duloxetine HCl [Cymbalta 30mg 30 mg PO DAILY 04/12/18 08/16/18 capsule] Insulin NPH Hum/Reg Insulin Hm 40 unit SQ BID 04/12/18 08/16/18 [Novolin 70-30 100 Unit/ml Vial] Loperamide HCl [Loperamide] 2 mg PO Q6HP PRN 04/12/18 08/16/18 hydroCHLOROthiazide [HCTZ 12.5mg 12.5 mg PO DAILY 04/12/18 08/16/18 capsule] Allergies Allergy/AdvReac Type Severity Reaction Status Date / Time No Known Allergies Allergy Verified 07/21/18 10:54 [facility] History I have reviewed the patient's past medical history: Yes Medical History: Reports:: Cardiomyopathy, Coronary Artery Disease, Diabetes Mellitus Type 2, Hypertension Denies:: Cancer, Diabetes Mellitus Type 1, Internal Pacemaker, MRSA Other Medical History: Reports: Anemia, Hypothyroidism Laterality Cases: Bilateral: Tonsillectomy Other Surgeries: Yes: Colonoscopy, Other. No: Pacemaker Amputation: No Fractures: No - Social History Smoking Status: Former smoker Tobacco Type: cigarettes Alcohol Intake: never Alcohol Intake Frequency:: other Substance Use Type: denies use Occupational Status: unemployed, disabled Housing: snf Family Hx:: Cancer, Stroke ROS Obtained: Yes All systems reviewed & no additional complaints - Constitutional Constitutional: Reports fever(s) (Patient unaware of fever, found to be febrile in the ED) - ENT Ears, Nose, Mouth, and Throat: Denies nasal discharge, Denies sore throat - Cardiovascular Cardiovascular: Reports chest pain - Respiratory Respiratory: No cough, Yes dyspnea - Gastrointestinal Gastrointestingal: Reports: diarrhea. Denies: abdominal pain, nausea, vomiting Physical Exam - General General appearance: alert, in no apparent distress - Head Head exam: atraumatic, normocephalic - Eye Eye exam: Present: normal appearance, PERRL, EOMI - ENT ENT exam: Present: mucous membranes moist - Neck Neck exam: Present: normal inspection, full ROM, trachea midline. Absent: meningismus - Chest Chest inspection: Present: normal inspection, symmetric chest wall rise - Respiratory Respiratory exam: Present: normal lung sounds bilaterally. Absent: respiratory distress - Cardiovascular Cardiovascular exam: Present: normal rhythm, tachycardia - Abdominal Exam Abdominal exam: Present: soft. Absent: distention, tenderness - Extremities Exam Extremities exam: Present: normal inspection. Absent: pedal edema, calf tenderness - Neurological Exam Neurological exam: Present: alert, CN II-XII intact. Absent: motor sensory deficit - Psychiatric Psychiatric exam: Present: normal affect, normal mood - Skin Skin exam: Present: warm, dry
[2018-08-16 02:03] LABS: Basophils % 0.2 % (0.1-2.0); Eosinophils # 0.1 K/mm3 (0.0-0.4); Eosinophils % 0.8 % (0.1-12.0); Hematocrit 36.1 % (42.0-52.0); Hemoglobin 11.8 g/dL (14.1-18.0); Lymphocytes # 0.9 K/mm3 (0.7-4.5); Lymphocytes % 6.9 K/mm3 (10-50); Mean Corpuscular HGB Conc 32.7 g/dL (31.8-35.4); Mean Corpuscular Hemoglobin 31.6 pg (27.0-31.2); Mean Corpuscular Volume 96.7 fl (80-94); Mean Platelet Volume 7.2 fl (7.4-10.4); Monocytes % 7.7 % (1.7-9.3); Neutrophils # 10.8 K/mm3 (1.8-7.8); Neutrophils % 84.6 % (37.0-80.0); Platelet Count 326 K/mm3 (142-424); Red Blood Count 3.73 M/mm3 (4.60-6.20); White Blood Count 12.8 K/mm3 (4.8-10.8)
[2018-08-16 02:05] LABS: Anion Gap 18.3 mEq/L (5-15); Calcium 8.8 mg/dL (8.5-10.1); Potassium 4.3 mmoL/L (3.5-5.1)
[2018-08-16 02:33] LABS: Albumin Level 2.7 gm/dL (3.4-5.0); Bilirubin,Direct 0.1 mg/dL (0.0-0.2); Bilirubin,Indirect 0.4 mg/dL (0.0-0.9); Bilirubin,Total 0.5 mg/dL (0.2-1.0); Total Protein,Serum 7.1 gm/dL (6.4-8.2)
[2018-08-16 02:43] LABS: Free Thyroxine Index 1.4 ug/dL (5.93-13.13); T4 (Thyroxine) 3.7 ug/dl (4.7-13.3); Thyroid Stimulating Hormone 4.37 uIU/ml (0.358-3.740)
[2018-08-16 02:45] LABS: Appearance,Urine CLEAR (Clear); Bilirubin,Urine Negative (Negative); Blood, Urine TRACE-I (Negative); Color,Urine YELLOW (Yellow); Glucose,Urine (UA) Negative (Negative); Ketones,Urine Negative (Negative); Leukocyte Esterase,Urine Negative (Negative); Microscopic, Urine URINE MICROSCOPIC (MICROSCOPIC); PH,Urine 5.5 (5.0-8.5); Protein,Urine 2+ (Negative); Specific Gravity, Urine 1.025 (1.005-1.030); Urobilinogen,Urine 0.2 EU/dl (0.2)
[2018-08-16 02:47] LABS: Amorphous Sediment,Urine Trace /lpf
[2018-08-16 08:41] LABS: Basophils % 0.2 % (0.1-2.0); Eosinophils # 0.1 K/mm3 (0.0-0.4); Eosinophils % 0.7 % (0.1-12.0); Hematocrit 36.1 % (42.0-52.0); Hemoglobin 11.6 g/dL (14.1-18.0); Lymphocytes # 0.8 K/mm3 (0.7-4.5); Lymphocytes % 7.2 K/mm3 (10-50); Mean Corpuscular Hemoglobin 31.5 pg (27.0-31.2); Mean Corpuscular Volume 98.3 fl (80-94); Mean Platelet Volume 7.5 fl (7.4-10.4); Monocytes % 8.5 % (1.7-9.3); Neutrophils # 9.3 K/mm3 (1.8-7.8); Neutrophils % 83.5 % (37.0-80.0); Platelet Count 308 K/mm3 (142-424); Red Blood Count 3.67 M/mm3 (4.60-6.20); White Blood Count 11.2 K/mm3 (4.8-10.8)
[2018-08-16 08:57] LABS: Anion Gap 17.5 mEq/L (5-15); Calcium 8.6 mg/dL (8.5-10.1); Potassium 4.5 mmoL/L (3.5-5.1)
--- NOTE | 2018-08-16 09:10 | H&P/Discharge Summary ---
General - General Admission date:: 08/16/18 Discharge date: 08/16/18 *Admission Date: 08/16/18 *Chief complaint: Chest pain/cough *History of present illness: 73-year-old white male, resident of local personal [facility], with history of diabetes, chronic renal insufficiency, coronary disease and recent stenting, who came to the emergency department because of a chief complaint of chest pain. Please see ER notes for details but essentially patient complained of chest pain that resolved in the ambulance ride to the hospital. At the hospital he had no complaints and was feeling much better. ER workup was thorough, and revealed an elevated troponin level, slight increase in white blood cell counts and a slight increase in creatinine. His chest x-ray showed bronchial inflammation and bronchitis, urinalysis was otherwise unremarkable and other labs were nondiagnostic. It was decided to admit the patient for observation and repeat labs given his multiple medical problems and relatively fragmented history. [facility] History I have reviewed the patient's past medical history: Yes Medical History: Reports:: Cancer, Cardiomyopathy, Coronary Artery Disease, Diabetes Mellitus Type 2, Hypertension, Internal Pacemaker, Myocardial Infarction Denies:: Diabetes Mellitus Type 1, MRSA Other Medical History: Reports: Anemia, Hypothyroidism Laterality Cases: Left: Total Hip Replacement, Bilateral: Tonsillectomy Other Surgeries: Yes: Colonoscopy, Pacemaker, Other Amputation: No Fractures: Yes - *Social History Educational Level: Attended College Smoking Status: Former smoker Tobacco Type: cigarettes Alcohol Intake: never Alcohol Intake Frequency:: other Substance Use Type: denies use Occupational Status: unemployed, disabled Housing: assisted living facility - Psychiatric History Expresses thoughts of harming self/others: None Suicide Plan Description: No Plan, Clear *Family Hx:: Diabetes, Stroke Review of Systems - Review of Systems Review of systems:: pertinent systems reviewed and negative unless documented below Patient is difficult to obtain a review of systems from. He denies current chest pain or shortness of air, denies abdominal pain, ate 100% of his breakfast and wishes to be discharged back to his personal [facility]. Exam Vital signs and Labs for Last 24 Hours: Temp Pulse Resp BP Pulse Ox 98.4 F 102 H 20 147/77 H 98 08/16/18 07:51 08/16/18 08:00 08/16/18 07:51 08/16/18 07:51 08/16/18 07:51 Laboratory Results - last 24 hr 08/16/18 01:40: WBC 12.8 H, RBC 3.73 L, Hgb 11.8 L, Hct 36.1 L, MCV 96.7 H, MCH 31.6 H, MCHC 32.7, RDW 15.0, Plt Count 326, MPV 7.2 L, Neut % (Auto) 84.6 H, Lymph % (Auto) 6.9 L, [place] % (Auto) 7.7, Eos % (Auto) 0.8, Baso % (Auto) 0.2, Neut # (Auto) 10.8 H, Lymph # (Auto) 0.9, [place] # (Auto) 1.0, Eos # (Auto) 0.1, Baso # (Auto) 0.0 08/16/18 01:40: Sodium 137, Potassium 4.3, Chloride 102, Carbon Dioxide 21, Anion Gap 18.3 H, BUN 37 H, Creatinine 1.84 H, Estimated Creat Clear 55, Estimated GFR 36 L, Est GFR ( Amer) 44 L, Glucose 251 H, Calcium 8.8 08/16/18 01:40: Troponin I 0.11 H 08/16/18 01:40: D-Dimer 479 H* 08/16/18 02:00: Lactate 1.7 08/16/18 02:00: Total Bilirubin 0.5, Direct Bilirubin 0.1, Indirect Bilirubin 0.4, AST 7 L, ALT 21, Alkaline Phosphatase 152 H, Total Protein 7.1, Albumin 2.7 L 08/16/18 02:00: TSH 4.37 H, Free T4 Index 1.4 L, Thyroxine (T4) 3.7 L, T3 Uptake 37 08/16/18 02:13: Influenza Type A Ag Negative, Influenza Type B Ag Negative 08/16/18 02:40: Urine Color Yellow, Urine Appearance Clear, Urine pH 5.5, Ur Specific [place] 1.025, Urine Protein 2+, Urine Glucose (UA) Negative, Urine Ketones Negative, Urine Blood Trace-i, Urine Nitrate Negative, Urine Bilirubin Negative, Urine Urobilinogen 0.2, Ur Leukocyte Esterase Negative, Urine RBC 3-5, Urine WBC 10-20, Ur Squamous Epith Cells 10-20, Amorphous Sediment Trace 08/16/18 06:15: POC Glucose 317 H* 08/16/18 06:35: Troponin I 0.13 H 08/16/18 06:35: WBC 11.2 H, RBC 3.67 L, Hgb 11.6 L, Hct 36.1 L, MCV 98.3 H, MCH 31.5 H, MCHC 32.0, RDW 15.0, Plt Count 308, MPV 7.5, Neut % (Auto) 83.5 H, Lymph % (Auto) 7.2 L, [place] % (Auto) 8.5, Eos % (Auto) 0.7, Baso % (Auto) 0.2, Neut # (Auto) 9.3 H, Lymph # (Auto) 0.8, [place] # (Auto) 1.0, Eos # (Auto) 0.1, Baso # (Auto) 0.0 08/16/18 06:35: Sodium 138, Potassium 4.5, Chloride 103, Carbon Dioxide 22, Anion Gap 17.5 H, BUN 36 H, Creatinine 1.80 H, Estimated Creat Clear 53, Estimated GFR 37 L, Est GFR ( Amer) 45 L, Glucose 315 H D, Calcium 8.6 I & O for Last 24 hours: Intake & Output 08/13/18 08/14/18 08/15/18 08/16/18 11:59 11:59 11:59 11:59 Intake Total 480 / 480 Output Total 200 / 200 Balance 280 / 280 Weight 221 lb 2 oz Narrative: Patient is awake, alert, oriented x2, a little fuzzy about the date. Has some rhonchi in his chest that clear with a deep breath. Heart rate regular without murmurs. No peripheral edema, clubbing or perfusion deficits. Abdomen soft and nontender. Symmetric cranial nerves, moves all extremities well. Oropharynx clear without lesions, poor dentition noted. No JVD. Otherwise ENT exam clear. Hospital Course Hospital Course: Patient was admitted, labs were repeated this morning showing slight improvement in his abnormal findings. His troponin levels have been elevated in the past and given his slight worsening renal insufficiency this seems to be the etiology of this problem. White count has come down slightly. Urinalysis was unremarkable. Blood and urine cultures are pending. Plan will be to discharge patient back to his personal [facility]. We will prescribe antibiotics for what appears to be a community-acquired bronchitis that reasonably is the cause of his chest pain. I would like labs drawn on Friday of this week including CBC/BMP/cardiac enzymes to establish his new baseline. Please see discharge medication list for medication changes given his renal insufficiency issues. Results Labs on day of discharge: Labs from last 24 hours 08/16/18 08/16/18 08/16/18 06:35 06:35 06:35 WBC 11.2 H RBC 3.67 L Hgb 11.6 L Hct 36.1 L MCV 98.3 H MCH 31.5 H MCHC 32.0 RDW 15.0 Plt Count 308 MPV 7.5 Neut % (Auto) 83.5 H Lymph % (Auto) 7.2 L [place] % (Auto) 8.5 Eos % (Auto) 0.7 Baso % (Auto) 0.2 Neut # (Auto) 9.3 H Lymph # (Auto) 0.8 [place] # (Auto) 1.0 Eos # (Auto) 0.1 Baso # (Auto) 0.0 D-Dimer Sodium 138 Potassium 4.5 Chloride 103 Carbon Dioxide 22 Anion Gap 17.5 H BUN 36 H Creatinine 1.80 H Estimated Creat Clear 53 Estimated GFR 37 L Est GFR ( Amer) 45 L Glucose 315 H D POC Glucose Lactate Calcium 8.6 Total Bilirubin Direct Bilirubin Indirect Bilirubin AST ALT Alkaline Phosphatase Troponin I 0.13 H Total Protein Albumin TSH Free T4 Index Thyroxine (T4) T3 Uptake Urine Color Urine Appearance Urine pH Ur Specific [place] Urine Protein Urine Glucose (UA) Urine Ketones Urine Blood Urine Nitrate Urine Bilirubin Urine Urobilinogen Ur Leukocyte Esterase Urine RBC Urine WBC Ur Squamous Epith Cells Amorphous Sediment Influenza Type A Ag Influenza Type B Ag 08/16/18 08/16/18 08/16/18 06:15 02:40 02:13 WBC RBC Hgb Hct MCV MCH MCHC RDW Plt Count MPV Neut % (Auto) Lymph % (Auto) [place] % (Auto) Eos % (Auto) Baso % (Auto) Neut # (Auto) Lymph # (Auto) [place] # (Auto) Eos # (Auto) Baso # (Auto) D-Dimer Sodium Potassium Chloride Carbon Dioxide Anion Gap BUN Creatinine Estimated Creat Clear Estimated GFR Est GFR ( Amer) Glucose POC Glucose 317 H* Lactate Calcium Total Bilirubin Direct Bilirubin Indirect Bilirubin AST ALT Alkaline Phosphatase Troponin I Total Protein Albumin TSH Free T4 Index Thyroxine (T4) T3 Uptake Urine Color Yellow Urine Appearance Clear Urine pH 5.5 Ur Specific [place] 1.025 Urine Protein 2+ Urine Glucose (UA) Negative Urine Ketones Negative Urine Blood Trace-i Urine Nitrate Negative Urine Bilirubin Negative Urine Urobilinogen 0.2 Ur Leukocyte Esterase Negative Urine RBC 3-5 Urine WBC 10-20 Ur Squamous Epith Cells 10-20 Amorphous Sediment Trace Influenza Type A Ag Negative Influenza Type B Ag Negative 08/16/18 08/16/18 08/16/18 02:00 02:00 02:00 WBC RBC Hgb Hct MCV MCH MCHC RDW Plt Count MPV Neut % (Auto) Lymph % (Auto) [place] % (Auto) Eos % (Auto) Baso % (Auto) Neut # (Auto) Lymph # (Auto) [place] # (Auto) Eos # (Auto) Baso # (Auto) D-Dimer Sodium Potassium Chloride Carbon Dioxide Anion Gap BUN Creatinine Estimated Creat Clear Estimated GFR Est GFR ( Amer) Glucose POC Glucose Lactate 1.7 Calcium Total Bilirubin 0.5 Direct Bilirubin 0.1 Indirect Bilirubin 0.4 AST 7 L ALT 21 Alkaline Phosphatase 152 H Troponin I Total Protein 7.1 Albumin 2.7 L TSH 4.37 H Free T4 Index 1.4 L Thyroxine (T4) 3.7 L T3 Uptake 37 Urine Color Urine Appearance Urine pH Ur Specific [place] Urine Protein Urine Glucose (UA) Urine Ketones Urine Blood Urine Nitrate Urine Bilirubin Urine Urobilinogen Ur Leukocyte Esterase Urine RBC Urine WBC Ur Squamous Epith Cells Amorphous Sediment Influenza Type A Ag Influenza Type B Ag 08/16/18 08/16/18 08/16/18 01:40 01:40 01:40 WBC RBC Hgb Hct MCV MCH MCHC RDW Plt Count MPV Neut % (Auto) Lymph % (Auto) [place] % (Auto) Eos % (Auto) Baso % (Auto) Neut # (Auto) Lymph # (Auto) [place] # (Auto) Eos # (Auto) Baso # (Auto) D-Dimer 479 H* Sodium 137 Potassium 4.3 Chloride 102 Carbon Dioxide 21 Anion Gap 18.3 H BUN 37 H Creatinine 1.84 H Estimated Creat Clear 55 Estimated GFR 36 L Est GFR ( Amer) 44 L Glucose 251 H POC Glucose Lactate Calcium 8.8 Total Bilirubin Direct Bilirubin Indirect Bilirubin AST ALT Alkaline Phosphatase Troponin I 0.11 H Total Protein Albumin TSH Free T4 Index Thyroxine (T4) T3 Uptake Urine Color Urine Appearance Urine pH Ur Specific [place] Urine Protein Urine Glucose (UA) Urine Ketones Urine Blood Urine Nitrate Urine Bilirubin Urine Urobilinogen Ur Leukocyte Esterase Urine RBC Urine WBC Ur Squamous Epith Cells Amorphous Sediment Influenza Type A Ag Influenza Type B Ag 08/16/18 01:40 WBC 12.8 H RBC 3.73 L Hgb 11.8 L Hct 36.1 L MCV 96.7 H MCH 31.6 H MCHC 32.7 RDW 15.0 Plt Count 326 MPV 7.2 L Neut % (Auto) 84.6 H Lymph % (Auto) 6.9 L [place] % (Auto) 7.7 Eos % (Auto) 0.8 Baso % (Auto) 0.2 Neut # (Auto) 10.8 H Lymph # (Auto) 0.9 [place] # (Auto) 1.0 Eos # (Auto) 0.1 Baso # (Auto) 0.0 D-Dimer Sodium Potassium Chloride Carbon Dioxide Anion Gap BUN Creatinine Estimated Creat Clear Estimated GFR Est GFR ( Amer) Glucose POC Glucose Lactate Calcium Total Bilirubin Direct Bilirubin Indirect Bilirubin AST ALT Alkaline Phosphatase Troponin I Total Protein Albumin TSH Free T4 Index Thyroxine (T4) T3 Uptake Urine Color Urine Appearance Urine pH Ur Specific [place] Urine Protein Urine Glucose (UA) Urine Ketones Urine Blood Urine Nitrate Urine Bilirubin Urine Urobilinogen Ur Leukocyte Esterase Urine RBC Urine WBC Ur Squamous Epith Cells Amorphous Sediment Influenza Type A Ag Influenza Type B Ag DS: Diagnosis - Discharge Diagnosis (1) Acute bronchopneumonia Status: Acute (2) Chest pain Status: Resolved (3) Elevated troponin Status: Chronic Discharge Medications - Medications for Discharge Home Medication List at Discharge: No Action hydrocodone 5 mg-acetaminophen 325 mg tablet 1 tab PO DAILYP PRN PRN Reason: PAIN magnesium hydroxide 400 mg/5 mL oral suspension 30 ml PO Q72H PRN PRN Reason: Constipation atorvastatin 40 mg tablet 40 mg PO HS ferrous sulfate 325 mg (65 mg iron) tablet 325 mg PO BID tab levothyroxine 50 mcg tablet 50 mcg PO DAILY tab losartan 100 mg tablet 100 mg PO DAILY metformin 1,000 mg tablet 1,000 mg PO BID ascorbic acid (vitamin C) 500 mg tablet 500 mg PO DAILY tab furosemide 20 mg tablet 20 mg PO DAILY tab ticagrelor 90 mg tablet 90 mg PO BID Duloxetine HCl [Cymbalta 30mg capsule] 30 mg PO DAILY Loperamide HCl [Loperamide] 2 mg PO Q6HP PRN PRN Reason: Diarrhea Insulin NPH Hum/Reg Insulin Hm [Novolin 70-30 100 Unit/ml Vial] 40 unit SQ BID Isosorbide Mononitrate [Imdur 30mg ER tablet] 30 mg PO DAILY hydroCHLOROthiazide [HCTZ 12.5mg capsule] 12.5 mg PO DAILY Disposition Disposition: Home, Self-Care
--- NOTE | 2018-08-16 09:52 | Pharmacy Consult Notes ---
[facility] Pharmacy VTE Monitoring - Patient Demographics Admission date: 08/16/18 Report Date: 08/16/18 Time: 09:52 Allergies/Adverse Reactions: Patient Allergies No Known Allergies Allergy (Verified 07/21/18 10:54) Height: 1.74 m Weight: 100.301 kg Patient Problems: Current Active Problems Elevated troponin (Chronic) UTI (urinary tract infection) (Acute) Acute bronchopneumonia (Acute) - VTE Risk Labs: VTE Related Lab Results Hgb 11.6 g/dL (14.1-18.0) L 08/16/18 06:35 Hct 36.1 % (42.0-52.0) L 08/16/18 06:35 Plt Count 308 K/mm3 (142-424) 08/16/18 06:35 BUN 36 mg/dL (7-18) H 08/16/18 06:35 Creatinine 1.80 mg/dL (0.70-1.30) H 08/16/18 06:35 Estimated Creat Clear 53 mL/min (0-300) 08/16/18 06:35 Was VTE Risk Assessment Performed: Yes VTE Score: 7 VTE Risk Level: Moderate Risk - Prophylaxis VTE Prophylaxis Ordered?: Yes Types of VTE Prophylaxis: Pharmacological Pharmacologic Type: Enoxaparin - VTE Diagnosis Confirmed Treatment or plan recommended: Continue Current Treatment
== END 2018-08-16 10:30 | disposition home or self-care (01) ==
LOC: ER 01:41 → 2ND 01:41
PROVIDERS: ADMIT Internal Medicine Adolescent Medicine; ATTEND Internal Medicine Adolescent Medicine

== ENCOUNTER 2018-08-23 01:39 | Observation (INO) ==
[2018-08-23 02:08] LABS: Basophils # 0.1 K/mm3 (0-0.2); Basophils % 0.5 % (0.1-2.0); Eosinophils # 0.2 K/mm3 (0.0-0.4); Eosinophils % 1.4 % (0.1-12.0); Hematocrit 37.9 % (42.0-52.0); Hemoglobin 11.5 g/dL (14.1-18.0); Lymphocytes # 1.1 K/mm3 (0.7-4.5); Lymphocytes % 8.6 K/mm3 (10-50); Mean Corpuscular HGB Conc 30.4 g/dL (31.8-35.4); Mean Corpuscular Hemoglobin 30.8 pg (27.0-31.2); Mean Corpuscular Volume 101.4 fl (80-94); Mean Platelet Volume 7.7 fl (7.4-10.4); Monocytes # 0.7 K/mm3 (0.1-1.0); Monocytes % 5.3 % (1.7-9.3); Neutrophils # 10.5 K/mm3 (1.8-7.8); Neutrophils % 84.2 % (37.0-80.0); Platelet Count 373 K/mm3 (142-424); Red Blood Count 3.74 M/mm3 (4.60-6.20); Red Cell Distribution Width 15.2 % (11.5-17.5); White Blood Count 12.5 K/mm3 (4.8-10.8)
[2018-08-23 02:12] LABS: ABG Base Excess -5.5 mmol/L (-2.4-2.3); ABG HCO3 19.9 mmhg (22.0-26.0); ABG Oxygen Saturation 95 % (90-100); ABG PCO2 35.5 mmhg (35.0-45.0); ABG PH 7.37 mmol/L (7.35-7.45); ABG PO2 77.9 mmhg (80-100)
[2018-08-23 02:13] LABS: Allen's Test Y; Oxygen 2 %
[2018-08-23 02:23] LABS: Anion Gap 17.5 mEq/L (5-15); Calcium 8.6 mg/dL (8.5-10.1); Potassium 4.5 mmoL/L (3.5-5.1)
--- NOTE | 2018-08-23 03:29 | Emergency Department Note ---
ED Disposition Clinical Impression: HCAP (healthcare-associated pneumonia), Renal insufficiency, Diabetes mellitus type 2 in obese, Obesity (BMI 30-39.9) CHF (congestive heart failure) Qualifiers: Heart failure type: unspecified Heart failure chronicity: acute on chronic Qualified Code(s): I50.9 - Heart failure, unspecified Disposition: Admitted as Observation Condition on Discharge: Fair Referrals: Provider,Referral, MD [Primary Care Provider] - - Critical Care Critical Care Time: No Attestation: On 08/23/18, the high probability of a clinically significant, sudden or life threatening deterioration of the following system(s) required my full and direct attention, intervention and personal management. The time I documented below is in addition to time spent performing reported procedures but includes the following listed in this critical care notation. Medical Decision Making - Medical Records Medical records reviewed: Yes: I reviewed the patient's medical records. - Yogesh Inquiry Pt receiving controlled substance: No Vital Signs: 08/23/18 01:40 EST 08/23/18 01:54 EST 08/23/18 02:10 Pulse Rate Pulse Rate [Right Radial] 112 H 111 H 112 H Respiratory Rate 27 H 25 H 25 H Blood Pressure [Right Arm] 180/120 H 172/108 H Blood Pressure Mean [Right Arm] 140 129 Blood Pressure Source [Right Arm] Manual Cuff/ Auscultation Manual Cuff/ Auscultation Blood Pressure Position [Right Arm] Sitting Sitting 02 Sat by Pulse Oximetry 88 L 94 L 95 Oxygen Delivery Method Room Air Nasal Cannula Nasal Cannula Oxygen Flow Rate (LPM) 2 2 08/23/18 02:29 08/23/18 02:50 08/23/18 03:00 Pulse Rate 83 Pulse Rate [Right Radial] 102 H 102 H Respiratory Rate 18 18 Blood Pressure [Right Arm] 169/97 H 167/88 H Blood Pressure Mean [Right Arm] 121 114 Blood Pressure Source [Right Arm] Automatic Cuff Automatic Cuff Blood Pressure Position [Right Arm] Supine Supine 02 Sat by Pulse Oximetry 96 96 Oxygen Delivery Method Nasal Cannula Nasal Cannula Oxygen Flow Rate (LPM) 2 2 08/23/18 03:30 08/23/18 04:00 08/23/18 04:30 Pulse Rate Pulse Rate [Right Radial] 100 H 104 H 102 H Respiratory Rate 18 18 18 Blood Pressure [Right Arm] 155/92 H 173/100 H 152/98 H Blood Pressure Mean [Right Arm] 113 124 116 Blood Pressure Source [Right Arm] Automatic Cuff Automatic Cuff Blood Pressure Position [Right Arm] Supine Supine 02 Sat by Pulse Oximetry 96 95 97 Oxygen Delivery Method Nasal Cannula Nasal Cannula Nasal Cannula Oxygen Flow Rate (LPM) 2 2 2 08/23/18 05:27 08/23/18 06:19 Pulse Rate Pulse Rate [Right Radial] 109 H Respiratory Rate 22 Blood Pressure [Right Arm] 100/59 L Blood Pressure Mean [Right Arm] 72 Blood Pressure Source [Right Arm] Automatic Cuff Blood Pressure Position [Right Arm] Sitting 02 Sat by Pulse Oximetry 97 96 Oxygen Delivery Method Nasal Cannula Room Air Oxygen Flow Rate (LPM) 2 - Lab Data Lab results reviewed: Yes: I reviewed the patient's lab results. Lab Results 08/23/18 01:25 EST: WBC 12.5 H, RBC 3.74 L, Hgb 11.5 L, Hct 37.9 L, MCV 101.4 H, MCH 30.8, MCHC 30.4 L, RDW 15.2, Plt Count 373, MPV 7.7, Neut % (Auto) 84.2 H, Lymph % (Auto) 8.6 L, [place] % (Auto) 5.3, Eos % (Auto) 1.4, Baso % (Auto) 0.5, Neut # (Auto) 10.5 H, Lymph # (Auto) 1.1, [place] # (Auto) 0.7, Eos # (Auto) 0.2, Baso # (Auto) 0.1 08/23/18 01:25 EST: Sodium 135 L, Potassium 4.5, Chloride 102, Carbon Dioxide 20 L, Anion Gap 17.5 H, BUN 30 H, Creatinine 1.79 H, Estimated Creat Clear 56, Estimated GFR 38 L, Est GFR ( Amer) 45 L, Glucose 427 H*, Calcium 8.6, Troponin I 0.06 08/23/18 02:00: Lactate 1.6 08/23/18 02:11: Specimen Source R/r, O2 % 2, ABG pH 7.37, ABG pCO2 35.5, ABG pO2 77.9 L, ABG HCO3 19.9 L, ABG Total CO2 21.0 L, ABG O2 Saturation 95, ABG Base Excess -5.5 L, Cameron Test Y 08/23/18 03:40: POC Glucose 412 H* 08/23/18 04:23: Troponin I 0.07 H Result diagrams: 08/23/18 01:25 EST 08/23/18 01:25 EST Orders (Tests/Meds): ED MEDICATIONS Discontinued Medications Generic Name Dose Route Start Last Admin Trade Name Eleanor PRN Reason Stop Dose Admin Albuterol/Ipratropium 3 ml 08/23/18 01:48 EST 08/23/18 02:28 Duoneb 3ml [facility] 08/23/18 01:49 EST 3 ml ONCE ONE Administration Albuterol/Ipratropium 3 ml 08/23/18 04:57 08/23/18 04:58 Duoneb 3ml [facility] 08/23/18 04:58 3 ml ONCE ONE Administration Furosemide 40 mg 08/23/18 03:38 08/23/18 03:41 Lasix 40mg/4ml Vial IV 08/23/18 03:39 40 mg ONCE ONE Administration Insulin Human Lispro 5 unit 08/23/18 03:31 08/23/18 03:34 Humalog 100 Units/Ml 3ml Vial (Ssi) SQ 08/23/18 03:32 5 unit ONCE ONE Administration ORDERS Category Date Time Status Blood Culture Stat Micro 08/23/18 02:00 Ordered Arterial Blood Gas Stat RT 08/23/18 02:07 Ordered - Radiology Data #1 Image(s): Chest Image Reviewed: Yes I reviewed the patient's radiology image Preliminary Findings: Abnormal (rt lower lobe changes with chf ) - ECG Data Tracing #1 Arrhythmias present: sinus tach Ischemic changes: non-specific ST-T wave changes Chest Pain HPI - General Chief Complaint: Chest Pain Stated Complaint: chest pain Time Seen by Provider: 08/23/18 02:00 Mode of Arrival: EMS Source of Information: Patient, EMS, Medical Record Limitations: No Limitations Description of Symptoms (Recalled from ER Triage Doc. by RN): Pt reports he has had difficulty breathing all day and then developed chest pain tonight. Pt reports he is feeling pressure toward the right side of his chest. - History of Present Illness HPI narrative: sob over the last few days with hx of recent admit for similiar sx and just finished abx as op - had some chest pain tonight and had recent cath in jun with no stents needed MD complaint: chest pain Onset (ago): day(s) Duration: intermittent Activity at onset: during rest Pain location: right chest Severity: similar to previous episodes Quality: heaviness Associated symptoms: dyspnea Treatments prior to or on arrival for Cardiac Chest Pain: none - MARY Score Non-Stemi Age of patient: 65 yrs or more Number of risk factors for CAD: Presence of 3 or more Prior coronary artery stenosis(seen in coronary angiography): Less than 50% ST-Segment deviation on ECG (more than 1 min): Absent Prior aspirin intake: No ASA in the last 7 days Severe anginal chest pain: No or one episode in last 24 hours Elevated cardiac markers(CK-MB or troponin): Absent Non-Stemi Risk Score: 2 - Related Data Prior Cardiac Testing/Procedures: Cardiac Angiogram Home Medications Medication Instructions Recorded Confirmed ascorbic acid (vitamin C) 500 mg 500 mg PO DAILY tab 10/30/17 08/23/18 tablet atorvastatin 40 mg tablet 40 mg PO HS 10/30/17 08/23/18 ferrous sulfate 325 mg (65 mg 325 mg PO BID tab 10/30/17 08/23/18 iron) tablet hydrocodone 5 mg-acetaminophen 325 1 tab PO DAILYP PRN 10/30/17 08/23/18 mg tablet levothyroxine 50 mcg tablet 50 mcg PO DAILY tab 10/30/17 08/23/18 losartan 100 mg tablet 100 mg PO DAILY 10/30/17 08/23/18 magnesium hydroxide 400 mg/5 mL 30 ml PO Q72H PRN 10/30/17 08/23/18 oral suspension ticagrelor 90 mg tablet 90 mg PO BID 10/30/17 08/23/18 Isosorbide Mononitrate [Imdur 30mg 30 mg PO DAILY 12/30/17 08/23/18 ER tablet] Duloxetine HCl [Cymbalta 30mg 30 mg PO DAILY 04/12/18 08/23/18 capsule] Insulin NPH Hum/Reg Insulin Hm 40 unit SQ BID 04/12/18 08/23/18 [Novolin 70-30 100 Unit/ml Vial] Loperamide HCl [Loperamide] 2 mg PO Q6HP PRN 04/12/18 08/23/18 Azithromycin [Zithromax 250mg 250 mg PO DIRECTED 08/23/18 08/23/18 tab] Cefdinir [Omnicef 300mg Capsule] 300 mg PO BID 08/23/18 08/23/18 Allergies Allergy/AdvReac Type Severity Reaction Status Date / Time No Known Allergies Allergy Verified 08/23/18 01:49 EST [facility] History I have reviewed the patient's past medical history: Yes Medical History: Reports:: Cancer, Cardiomyopathy, Coronary Artery Disease, Diabetes Mellitus Type 2, Hypertension, Internal Pacemaker, Myocardial Infarction Denies:: Diabetes Mellitus Type 1, MRSA Other Medical History: Reports: Anemia, Hypothyroidism Laterality Cases: Left: Total Hip Replacement, Bilateral: Tonsillectomy Other Surgeries: Yes: Colonoscopy, Pacemaker, Other Amputation: No Fractures: Yes - Social History Smoking Status: Former smoker Tobacco Type: cigarettes Alcohol Intake: never Alcohol Intake Frequency:: other Substance Use Type: denies use Occupational Status: unemployed, disabled Housing: assisted living facility - Psychiatric History Expresses thoughts of harming self/others: None Suicide Plan Description: No Plan Family Hx:: Diabetes, Stroke ROS Obtained: Yes All systems reviewed & no additional complaints - Constitutional Constitutional: Denies fever(s) - Eyes Eyes: Denies change in vision - ENT Ears, Nose, Mouth, and Throat: Denies sore throat - Cardiovascular Cardiovascular: Reports chest pain - Respiratory Respiratory: Yes chest congestion, Yes cough - Gastrointestinal Gastrointestingal: Denies: abdominal pain - Genitourinary Male Genitourinary: Denies hematuria - Musculoskeletal Musculoskeletal: Denies joint pain - Integumentary/Breasts Skin/Breast: Denies rash - Neurologic Neurologic: Denies seizure-like activity Physical Exam - General General appearance: alert, in no apparent distress, obese - Head Head exam: atraumatic - Eye Eye exam: Present: PERRL, EOMI - ENT ENT exam: Present: mucous membranes dry - Neck Neck exam: Present: trachea midline - Respiratory Respiratory exam: Present: wheezes, other (dec bs bilat ). Absent: respiratory distress - Cardiovascular Cardiovascular exam: Present: regular rate, systolic murmur, +S4 - Abdominal Exam Abdominal exam: Present: soft - Extremities Exam Extremities exam: Absent: calf tenderness - Neurological Exam Neurological exam: Present: alert, oriented X3, CN II-XII intact - Psychiatric Psychiatric exam: Present: normal affect - Skin Skin exam: Absent: rash
--- NOTE | 2018-08-23 08:23 | History & Physical Report ---
*Admission Date: 08/23/18 *Chief complaint: sob *History of present illness: this wm who lives at [facility] - has not felt well with progressive sob over the last few days - he dev chest pain last pm and was sent by ems to ed for eval - he was recently in about 3 weeks ago - and just finished abx - pt with recent cath requiring no stents -pt was seen in the ed and found to have inc inflitrate and chf and was having diff and was admitted [facility] History I have reviewed the patient's past medical history: Yes Medical History: Reports:: Cancer, Cardiomyopathy, Coronary Artery Disease, Diabetes Mellitus Type 2, Hypertension, Internal Pacemaker, Myocardial Infarction Denies:: Diabetes Mellitus Type 1, MRSA Other Medical History: Reports: Anemia, Hypothyroidism Laterality Cases: Left: Total Hip Replacement, Bilateral: Tonsillectomy Other Surgeries: Yes: Colonoscopy, Pacemaker, Other Amputation: No Fractures: Yes - *Social History Smoking Status: Former smoker Tobacco Type: cigarettes Alcohol Intake: never Alcohol Intake Frequency:: other Substance Use Type: denies use Occupational Status: unemployed, disabled Housing: assisted living facility - Psychiatric History Expresses thoughts of harming self/others: None Suicide Plan Description: No Plan *Family Hx:: Diabetes, Stroke Review of Systems - Review of Systems Review of systems:: pertinent systems reviewed and negative unless documented below - Constitutional Reports fatigue, Reports lack of energy - Eyes Denies change in vision - ENT Denies dizziness, Denies sore throat - *Cardiovascular Reports chest pain, Reports shortness of breath - *Respiratory Reports cough, Reports shortness of breath, Denies coughing up blood - *Gastrointestinal Denies abdominal pain - *Genitourinary Denies blood in urine - *Musculoskeletal Denies joint pain - Integumentary/Breasts Denies rash - *Neurologic Denies headache(s), Denies seizure-like activity - Psychiatric Denies anxiety, Denies thoughts of hurting/killing yourself Meds Home Medications Medication Instructions Recorded Confirmed Type ascorbic acid (vitamin C) 500 mg 500 mg PO DAILY tab 10/30/17 08/23/18 History tablet atorvastatin 40 mg tablet 40 mg PO HS 10/30/17 08/23/18 History ferrous sulfate 325 mg (65 mg 325 mg PO BID tab 10/30/17 08/23/18 History iron) tablet hydrocodone 5 mg-acetaminophen 325 1 tab PO DAILYP PRN 10/30/17 08/23/18 History mg tablet levothyroxine 50 mcg tablet 50 mcg PO DAILY tab 10/30/17 08/23/18 History losartan 100 mg tablet 100 mg PO DAILY 10/30/17 08/23/18 History magnesium hydroxide 400 mg/5 mL 30 ml PO Q72H PRN 10/30/17 08/23/18 History oral suspension ticagrelor 90 mg tablet 90 mg PO BID 10/30/17 08/23/18 History Isosorbide Mononitrate [Imdur 30mg 30 mg PO DAILY 12/30/17 08/23/18 History ER tablet] Duloxetine HCl [Cymbalta 30mg 30 mg PO DAILY 04/12/18 08/23/18 History capsule] Insulin NPH Hum/Reg Insulin Hm 40 unit SQ BID 04/12/18 08/23/18 History [Novolin 70-30 100 Unit/ml Vial] Loperamide HCl [Loperamide] 2 mg PO Q6HP PRN 04/12/18 08/23/18 History Azithromycin [Zithromax 250mg 250 mg PO DIRECTED 08/23/18 08/23/18 History tab] Cefdinir [Omnicef 300mg Capsule] 300 mg PO BID 08/23/18 08/23/18 History carBAMazepine [Tegretol 100mg 100 mg PO BID 08/23/18 08/23/18 History tablet] Allergies Allergy/AdvReac Type Severity Reaction Status Date / Time No Known Allergies Allergy Verified 08/23/18 01:49 EST Exam Vital signs and Labs for Last 24 Hours: Temp Pulse Resp BP Pulse Ox 98.2 F 114 H 18 113/79 93 L 08/23/18 08:19 08/23/18 08:19 08/23/18 08:19 08/23/18 08:19 08/23/18 07:20 Laboratory Results - last 24 hr 08/23/18 01:25 EST: WBC 12.5 H, RBC 3.74 L, Hgb 11.5 L, Hct 37.9 L, MCV 101.4 H, MCH 30.8, MCHC 30.4 L, RDW 15.2, Plt Count 373, MPV 7.7, Neut % (Auto) 84.2 H, Lymph % (Auto) 8.6 L, [place] % (Auto) 5.3, Eos % (Auto) 1.4, Baso % (Auto) 0.5, Neut # (Auto) 10.5 H, Lymph # (Auto) 1.1, [place] # (Auto) 0.7, Eos # (Auto) 0.2, Baso # (Auto) 0.1 08/23/18 01:25 EST: Sodium 135 L, Potassium 4.5, Chloride 102, Carbon Dioxide 20 L, Anion Gap 17.5 H, BUN 30 H, Creatinine 1.79 H, Estimated Creat Clear 56, Lisa mated GFR 38 L, Est GFR ( Amer) 45 L, Glucose 427 H*, Calcium 8.6, Troponin I 0.06 08/23/18 02:00: Lactate 1.6 08/23/18 02:11: Specimen Source R/r, O2 % 2, ABG pH 7.37, ABG pCO2 35.5, ABG pO2 77.9 L, ABG HCO3 19.9 L, ABG Total CO2 21.0 L, ABG O2 Saturation 95, ABG Base Excess -5.5 L, Cameron Test Y 08/23/18 03:40: POC Glucose 412 H* 08/23/18 04:23: Troponin I 0.07 H I & O for Last 24 hours: Intake & Output 08/20/18 08/21/18 08/22/18 08/23/18 11:59 11:59 11:59 10:59 Output Total 1350 / 1350 Balance -1350 / -1350 Weight 234 lb - Constitutional obese - *Routine HEENT Exam Head: Present: normocephalic Eye: Present: EOMI, PERRL ENT: Present: mucous membranes dry - *Routine Neck Exam Absent: JVD - *Routine Respiratory Exam Present: decreased breath sounds, rhonchi, wheezes - *Routine Cardiovascular Exam Present: RRR, murmur, S4 - *Routine Abdominal Exam Present: soft - *Routine Extremities Exam Absent: edema, Devan's sign - *Routine Skin Exam Present: intact - *Routine Neurological Exam Present: alert, oriented X3, CN II-XII intact - Routine Psychiatric Exam Present: normal affect Assessment and Plan (1) HCAP (healthcare-associated pneumonia) Current visit: Yes Status: Acute Category: Medical Code(s): J18.9 - Pneumonia, unspecified organism (2) CHF (congestive heart failure) Current visit: Yes Status: Acute Category: Medical Code(s): I50.9 - Heart failure, unspecified (3) Overweight Current visit: Yes Status: Acute Category: Medical Code(s): E66.3 - Overweight (4) Renal insufficiency Current visit: No Status: Acute Category: Medical Code(s): N28.9 - Disorder of kidney and ureter, unspecified (5) Diabetes mellitus, insulin dependent (IDDM), uncontrolled Current visit: Yes Status: Acute Category: Medical Code(s): E10.65 - Type 1 diabetes mellitus with hyperglycemia
--- NOTE | 2018-08-23 08:58 | Pharmacy Consult Notes ---
[facility] Pharmacy VTE Monitoring - Patient Demographics Admission date: 08/23/18 Report Date: 08/23/18 Time: 08:57 Allergies/Adverse Reactions: Patient Allergies No Known Allergies Allergy (Verified 08/23/18 01:49 EST) Height: 1.73 m Weight: 106.141 kg Patient Problems: Current Active Problems Diabetes mellitus type 2 in obese (Acute) Renal insufficiency (Acute) HCAP (healthcare-associated pneumonia) (Acute) Obesity (BMI 30-39.9) (Acute) CHF (congestive heart failure) (Chronic) - VTE Risk Labs: VTE Related Lab Results Hgb 11.5 g/dL (14.1-18.0) L 08/23/18 01:25 EST Hct 37.9 % (42.0-52.0) L 08/23/18 01:25 EST Plt Count 373 K/mm3 (142-424) 08/23/18 01:25 EST BUN 30 mg/dL (7-18) H 08/23/18 01:25 EST Creatinine 1.79 mg/dL (0.70-1.30) H 08/23/18 01:25 EST Estimated Creat Clear 56 mL/min (0-300) 08/23/18 01:25 EST VTE Score: 4 VTE Risk Level: Low Risk - Prophylaxis Types of VTE Prophylaxis: TEDS Knee High - VTE Diagnosis Confirmed Comment: MAURO HOSE ORDER PLACED
[2018-08-24 07:25] LABS: Basophils % 0.4 % (0.1-2.0); Calcium 8.9 mg/dL (8.5-10.1); Eosinophils # 0.1 K/mm3 (0.0-0.4); Eosinophils % 1.3 % (0.1-12.0); Hematocrit 35.6 % (42.0-52.0); Hemoglobin 11.2 g/dL (14.1-18.0); Lymphocytes # 1.1 K/mm3 (0.7-4.5); Lymphocytes % 10.3 K/mm3 (10-50); Mean Corpuscular HGB Conc 31.4 g/dL (31.8-35.4); Mean Corpuscular Hemoglobin 30.9 pg (27.0-31.2); Mean Corpuscular Volume 98.7 fl (80-94); Mean Platelet Volume 7.4 fl (7.4-10.4); Monocytes # 0.7 K/mm3 (0.1-1.0); Monocytes % 6.8 % (1.7-9.3); Neutrophils # 8.3 K/mm3 (1.8-7.8); Neutrophils % 81.2 % (37.0-80.0); Platelet Count 331 K/mm3 (142-424); Red Cell Distribution Width 15.3 % (11.5-17.5); White Blood Count 10.3 K/mm3 (4.8-10.8)
--- NOTE | 2018-08-24 08:48 | Progress Note ---
Internal Medicine - PN: Subj Interval history: pt feels better and no chest pain with card eval pending Exam Vital signs and Labs for Last 24 Hours: Temp Pulse Resp BP Pulse Ox 98.7 F 112 H 18 139/75 98 08/24/18 08:00 08/24/18 08:00 08/24/18 08:00 08/24/18 08:00 08/24/18 08:00 Laboratory Results - last 24 hr 08/23/18 10:15: Troponin I 0.07 H 08/23/18 12:05: POC Glucose 495 H* 08/23/18 13:19: Troponin I 0.09 H 08/23/18 16:38: POC Glucose 483 H* 08/23/18 20:31: POC Glucose 442 H* 08/24/18 00:04: POC Glucose 366 H* 08/24/18 06:30: POC Glucose 291 H 08/24/18 06:45: WBC 10.3, RBC 3.60 L, Hgb 11.2 L, Hct 35.6 L, MCV 98.7 H, MCH 30.9, MCHC 31.4 L, RDW 15.3, Plt Count 331, MPV 7.4, Neut % (Auto) 81.2 H, Lymph % (Auto) 10.3, [place] % (Auto) 6.8, Eos % (Auto) 1.3, Baso % (Auto) 0.4, Neut # (Auto) 8.3 H, Lymph # (Auto) 1.1, [place] # (Auto) 0.7, Eos # (Auto) 0.1, Baso # (Auto) 0.0 08/24/18 06:45: Sodium 136, Potassium 4.0, Chloride 103, Carbon Dioxide 23, Anion Gap 14.0, BUN 28 H, Creatinine 1.59 H, Estimated Creat Clear 60, Estimated GFR 43 L, Est GFR ( Amer) 52 L, Glucose 291 H, Calcium 8.9, Magnesium 1.7 I & O for Last 24 hours: Intake & Output 08/21/18 08/22/18 08/23/18 08/24/18 12:59 12:59 11:59 11:59 Intake Total 1440 / 1440 Output Total 2700 / 2700 Balance -1260 / -1260 Weight 224 lb 6 oz Microbiology Reports for the Last 24 Hours: Microbiology 08/23/18 22:05 Sputum - Expectorated Sputum Gram Stain - Final 08/23/18 22:05 Sputum - Expectorated Sputum Sputum Culture - Preliminary - Constitutional no acute distress, obese - *Routine HEENT Exam Head: Present: normocephalic Eye: Present: EOMI, PERRL ENT: Present: mucous membranes dry - *Routine Neck Exam Present: supple. Absent: JVD - *Routine Respiratory Exam Present: decreased breath sounds - *Routine Cardiovascular Exam Present: RRR, murmur - *Routine Abdominal Exam Present: soft - *Routine Extremities Exam Absent: calf tenderness - *Routine Skin Exam Present: intact - *Routine Neurological Exam Present: alert, CN II-XII intact - Routine Psychiatric Exam Present: normal affect Assessment and Plan (1) HCAP (healthcare-associated pneumonia) Current visit: Yes Status: Acute Category: Medical Code(s): J18.9 - Pneumonia, unspecified organism (2) CHF (congestive heart failure) Current visit: Yes Status: Acute Qualifiers: Heart failure type: combined systolic and diastolic Heart failure chronicity: acute on chronic Qualified Code(s): I50.43 - Acute on chronic combined systolic (congestive) and diastolic (congestive) heart failure Category: Medical Code(s): I50.9 - Heart failure, unspecified (3) Overweight Current visit: Yes Status: Acute Category: Medical Code(s): E66.3 - Overweight (4) Renal insufficiency Current visit: No Status: Acute Category: Medical Code(s): N28.9 - Disorder of kidney and ureter, unspecified (5) Diabetes mellitus, insulin dependent (IDDM), uncontrolled Current visit: Yes Status: Acute Category: Medical Code(s): E10.65 - Type 1 diabetes mellitus with hyperglycemia (6) A-fib Current visit: Yes Status: Acute Category: Medical Code(s): I48.91 - Unspecified atrial fibrillation
--- NOTE | 2018-08-24 09:33 | Consult Report ---
Addendum entered and electronically signed by JUAN CARLOS Boles 08/24/18 14:38: Pt developed rapid HR earlier today. Telemetry appears A. fib with RVR in the 140-150 bpm range. BP stable but patient with some SOA with minimal movement. He was given 2 doses of IV lopressor 5 mg and one IV dose of digoxin 0.25 mg without significant change in rate. CHADS-VASC score is 5. Started lovenox 100 mg Subcutaneously Q 12 Hrs along with IV cardizem with 15mg bolus then gtt starting afterward with titration protocol. Consider cardioversion tomorrow if no spontaneous conversion overnight. Original Note: History of Present Illness Consult date: 08/24/18 Requesting physician: Dave Vazquez Consult reason: congestive heart failure Chief complaint: SOA Additional Medical History:: 1. DM, treated since 2015 2. HTN A. CHF B. Echo, 12/2017, LVEF 45% with distal septum and apical hypokinesis. Mild AI, MR, TR. C. Echo, 04/2018, LVEF 50% with concentric LVH, hypokinesis of inferolateral wall, mild , Moderate MR and mild TR 3. Hyperlipidemia 4. Remote tobacco use 5. 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 Fractured hip, 2017 status post repair 7. Hypothyroidism, on supplement 8. CAD A. NSTEMI, 09/2017 B. Cardiac cath, 09/2017, mild CAD of left main, LAD and RCA with dominant circumflex with mid vessel occlusion. BHARTI to circumflex placed. LVEF 40% with LVEDP 50 mm Hg C. Cardiac cath, 06/2018, 1. The left main artery normal 2. The left anterior descending artery has proximal mild luminal irregularities nothing greater than 10% 3. The circumflex artery is a large dominant vessel with mild 10% luminal irregularities 4. The right coronary artery small vestigial normal 5. The GRIDER ventriculogram reveals normal 65% 6. The left ventricular end-diastolic pressure 20 mmHg History of present illness: 73-year-old white male with history of coronary artery disease, diabetes mellitus, hypertension and mild cardiomyopathy improved on medical therapy was admitted to the hospital for increasing shortness of breath with some associated chest pain. Chest x-ray noted to show both pneumonia and congestive heart failure. Labs reveal elevated BNP and mildly elevated troponins likely secondary to heart strain from congestive heart failure since patient recently had cardiac catheterization showing mild [id number] disease. Patient has received IV Lasix overnight with significant improvement in his shortness of breath. Denies any further chest discomfort. Patient is a resident of [facility] and is unaware of what medications he takes. Upon review of his admission medicines it appears that carvedilol not been given recently as it does not appear on that list. [facility] History Medical History: Reports:: Cancer, Cardiomyopathy, Coronary Artery Disease, Diabetes Mellitus Type 2, Hypertension, Myocardial Infarction Denies:: Diabetes Mellitus Type 1, MRSA Other Medical History: Reports: Anemia, Hypothyroidism Laterality Cases: Left: Total Hip Replacement, Bilateral: Tonsillectomy Other Surgeries: Yes: Colonoscopy, Pacemaker, Other Amputation: No Fractures: Yes - *Social History Educational Level: Attended College Smoking Status: Former smoker Tobacco Type: cigarettes Alcohol Intake: never Alcohol Intake Frequency:: other Substance Use Type: denies use Occupational Status: unemployed, disabled Housing: assisted living facility Household Members: none - Psychiatric History Expresses thoughts of harming self/others: None Suicide Plan Description: No Plan *Family Hx:: Diabetes, Stroke Meds Home Medications Medication Instructions Recorded Confirmed Type ascorbic acid (vitamin C) 500 mg 500 mg PO DAILY tab 10/30/17 08/23/18 History tablet atorvastatin 40 mg tablet 40 mg PO HS 10/30/17 08/23/18 History ferrous sulfate 325 mg (65 mg 325 mg PO BID tab 10/30/17 08/23/18 History iron) tablet hydrocodone 5 mg-acetaminophen 325 1 tab PO DAILYP PRN 10/30/17 08/23/18 History mg tablet levothyroxine 50 mcg tablet 50 mcg PO DAILY tab 10/30/17 08/23/18 History losartan 100 mg tablet 100 mg PO DAILY 10/30/17 08/23/18 History magnesium hydroxide 400 mg/5 mL 30 ml PO Q72H PRN 10/30/17 08/23/18 History oral suspension ticagrelor 90 mg tablet 90 mg PO BID 10/30/17 08/23/18 History Isosorbide Mononitrate [Imdur 30mg 30 mg PO DAILY 12/30/17 08/23/18 History ER tablet] Duloxetine HCl [Cymbalta 30mg 30 mg PO DAILY 04/12/18 08/23/18 History capsule] Insulin NPH Hum/Reg Insulin Hm 40 unit SQ BID 04/12/18 08/23/18 History [Novolin 70-30 100 Unit/ml Vial] Loperamide HCl [Loperamide] 2 mg PO Q6HP PRN 04/12/18 08/23/18 History Azithromycin [Zithromax 250mg 250 mg PO DIRECTED 08/23/18 08/23/18 History tab] Cefdinir [Omnicef 300mg Capsule] 300 mg PO BID 08/23/18 08/23/18 History carBAMazepine [Tegretol 100mg 100 mg PO BID 08/23/18 08/23/18 History tablet] Allergies Allergy/AdvReac Type Severity Reaction Status Date / Time No Known Allergies Allergy Verified 08/23/18 01:49 EST Review of Systems - *Cardiovascular Reports shortness of breath, Reports shortness of breath with activity - *Respiratory Reports shortness of breath, Reports shortness of breath with activity - *Gastrointestinal Denies abdominal pain - *Genitourinary Denies blood in urine - *Musculoskeletal Reports back pain - *Neurologic Denies dizziness, Denies headache(s), Denies seizure-like activity Exam Vital signs and Labs for Last 24 Hours: Temp Pulse Resp BP Pulse Ox 98.7 F 112 H 18 139/75 98 08/24/18 08:00 08/24/18 08:00 08/24/18 08:00 08/24/18 08:00 08/24/18 08:00 Laboratory Results - last 24 hr 08/23/18 10:15: Troponin I 0.07 H 08/23/18 12:05: POC Glucose 495 H* 08/23/18 13:19: Troponin I 0.09 H 08/23/18 16:38: POC Glucose 483 H* 08/23/18 20:31: POC Glucose 442 H* 08/24/18 00:04: POC Glucose 366 H* 08/24/18 06:30: POC Glucose 291 H 08/24/18 06:45: WBC 10.3, RBC 3.60 L, Hgb 11.2 L, Hct 35.6 L, MCV 98.7 H, MCH 30.9, MCHC 31.4 L, RDW 15.3, Plt Count 331, MPV 7.4, Neut % (Auto) 81.2 H, Lymph % (Auto) 10.3, [place] % (Auto) 6.8, Eos % (Auto) 1.3, Baso % (Auto) 0.4, Neut # (Auto) 8.3 H, Lymph # (Auto) 1.1, [place] # (Auto) 0.7, Eos # (Auto) 0.1, Baso # (Auto) 0.0 08/24/18 06:45: Sodium 136, Potassium 4.0, Chloride 103, Carbon Dioxide 23, Anion Gap 14.0, BUN 28 H, Creatinine 1.59 H, Estimated Creat Clear 60, Estimated GFR 43 L, Est GFR ( Amer) 52 L, Glucose 291 H, Calcium 8.9, Magnesium 1.7 I & O for Last 24 hours: Intake & Output 08/21/18 08/22/18 08/23/18 08/24/18 12:59 12:59 11:59 11:59 Intake Total 1440 / 1440 Output Total 2700 / 2700 Balance -1260 / -1260 Weight 224 lb 6 oz Microbiology Reports for the Last 24 Hours: Microbiology 08/23/18 22:05 Sputum - Expectorated Sputum Gram Stain - Final 08/23/18 22:05 Sputum - Expectorated Sputum Sputum Culture - Preliminary - *Routine Neck Exam Present: supple. Absent: JVD, carotid bruit - *Routine Respiratory Exam Present: decreased breath sounds, CTA bilaterally, diminished air movement. Absent: accessory muscle use, rales, rhonchi, wheezes - *Routine Cardiovascular Exam Present: RRR, tachycardia. Absent: murmur, gallop, rubs - *Routine Abdominal Exam Present: soft. Absent: tenderness, distended, guarding - *Routine Extremities Exam Present: edema. Absent: calf tenderness - *Routine Neurological Exam Present: alert, oriented X3, moving all extremities Assessment and Plan (1) HCAP (healthcare-associated pneumonia) Current visit: Yes Status: Acute Category: Medical Code(s): J18.9 - Pneumonia, unspecified organism (2) CHF (congestive heart failure) Current visit: Yes Status: Acute Qualifiers: Heart failure type: combined systolic and diastolic Heart failure chronicity: acute on chronic Qualified Code(s): I50.43 - Acute on chronic combined systolic (congestive) and diastolic (congestive) heart failure Category: Medical Code(s): I50.9 - Heart failure, unspecified (3) Overweight Current visit: Yes Status: Acute Category: Medical Code(s): E66.3 - Overweight (4) Renal insufficiency Current visit: No Status: Acute Category: Medical Code(s): N28.9 - Disorder of kidney and ureter, unspecified (5) Diabetes mellitus, insulin dependent (IDDM), uncontrolled Current visit: Yes Status: Acute Category: Medical Code(s): E10.65 - Type 1 diabetes mellitus with hyperglycemia - Assessment and plan all Dx Assessment and Plan for all problems:: 1. Restart carvedilol at 6.25 mg twice daily and titrate up as blood pressure tolerates. 2. Continue losartan 100 mg daily, atorvastatin 40 mg daily, Imdur 30 mg's daily, Brilinta 90 mg twice daily and aspirin 81 mg daily. 3. Lasix 40 mg IV today with transition to 20 mg p.o. daily upon discharge. 4. Anticipate patient would be ready for discharge back to the [facility] in 24-48 hours.
[2018-08-25 06:14] LABS: Anion Gap 13.3 mEq/L (5-15); Calcium 8.7 mg/dL (8.5-10.1); Potassium 4.3 mmoL/L (3.5-5.1)
--- NOTE | 2018-08-25 08:30 | Progress Note ---
Subjective Date: 08/25/18 Time: 08:26 Principal diagnosis: A. fib, CHF Interval history: 73-year-old white male in bed in no acute distress. After multiple medication changes last evening, the patient did finally convert to sinus rhythm overnight with controlled rate. Exam Vital signs and Labs for Last 24 Hours: Temp Pulse Resp BP Pulse Ox 98.5 F 76 17 145/70 H 97 08/25/18 08:00 08/25/18 06:03 08/25/18 04:00 08/25/18 06:00 08/25/18 06:03 Laboratory Results - last 24 hr 08/24/18 11:00: POC Glucose 545 H* 08/24/18 11:20: Random Glucose 500 H 08/24/18 17:18: POC Glucose 386 H* 08/24/18 20:02: POC Glucose 322 H* 08/25/18 05:28: POC Glucose 254 H 08/25/18 05:53: Sodium 138, Potassium 4.3, Chloride 104, Carbon Dioxide 25, Anion Gap 13.3, BUN 32 H, Creatinine 1.73 H, Estimated Creat Clear 55, Estimated GFR 39 L, Est GFR ( Amer) 47 L, Glucose 241 H, Calcium 8.7 I & O for Last 24 hours: Intake & Output 08/22/18 08/23/18 08/24/18 08/25/18 12:59 11:59 11:59 11:59 Intake Total 1440 / 1440 560 / 560 Output Total 2700 / 2700 755 / 755 Balance -1260 / -1260 -195 / -195 Weight 224 lb 6 oz 222 lb 4 oz Microbiology Reports for the Last 24 Hours: Microbiology 08/23/18 22:05 Sputum - Expectorated Sputum Gram Stain - Final 08/23/18 22:05 Sputum - Expectorated Sputum Sputum Culture - Preliminary 08/23/18 02:00 Blood Blood Culture - Preliminary NO GROWTH AFTER 48 HOURS 08/23/18 02:00 Blood Blood Culture - Preliminary NO GROWTH AFTER 48 HOURS - *Routine Neck Exam Present: supple. Absent: JVD, carotid bruit - *Routine Respiratory Exam Present: decreased breath sounds, diminished air movement. Absent: accessory muscle use, rales, rhonchi, wheezes - *Routine Cardiovascular Exam Present: RRR, murmur. Absent: gallop, rubs - *Routine Extremities Exam Absent: edema, calf tenderness - *Routine Neurological Exam Present: alert, oriented X3, moving all extremities Progress Note: A&P (1) HCAP (healthcare-associated pneumonia) Status: Acute Current Visit: Yes (2) CHF (congestive heart failure) Status: Acute Current Visit: Yes (3) Overweight Status: Acute Current Visit: Yes (4) Renal insufficiency Status: Acute Current Visit: No (5) Diabetes mellitus, insulin dependent (IDDM), uncontrolled Status: Acute Current Visit: Yes (6) A-fib Status: Acute Current Visit: Yes Assessment and Plan for All Diagnoses:: 1. Coreg has been discontinued in favor of bisoprolol 10 mg twice daily. 2. We will discontinue Brilinta and start Plavix since patient will be on Xarelto as well. 3. We will switch Lovenox to Xarelto therapy due to elevated CHADS score. 4. Continue to monitor today and overnight and if stable then discharge back to [facility]. 5. Would like to obtain a chest x-ray in the a.m. to follow-up on patient's CHF and pneumonia.
--- NOTE | 2018-08-25 08:48 | Progress Note ---
Internal Medicine - PN: Subj *Date: 08/25/18 *Time: 08:45 Exam Vital signs and Labs for Last 24 Hours: Temp Pulse Resp BP Pulse Ox 98.5 F 76 17 145/70 H 97 08/25/18 08:00 08/25/18 06:03 08/25/18 04:00 08/25/18 06:00 08/25/18 06:03 Laboratory Results - last 24 hr 08/24/18 11:00: POC Glucose 545 H* 08/24/18 11:20: Random Glucose 500 H 08/24/18 17:18: POC Glucose 386 H* 08/24/18 20:02: POC Glucose 322 H* 08/25/18 05:28: POC Glucose 254 H 08/25/18 05:53: Sodium 138, Potassium 4.3, Chloride 104, Carbon Dioxide 25, Anion Gap 13.3, BUN 32 H, Creatinine 1.73 H, Estimated Creat Clear 55, Estimated GFR 39 L, Est GFR ( Amer) 47 L, Glucose 241 H, Calcium 8.7 I & O for Last 24 hours: Intake & Output 08/22/18 08/23/18 08/24/18 08/25/18 12:59 11:59 11:59 11:59 Intake Total 1440 / 1440 560 / 560 Output Total 2700 / 2700 755 / 755 Balance -1260 / -1260 -195 / -195 Weight 224 lb 6 oz 222 lb 4 oz Microbiology Reports for the Last 24 Hours: Microbiology 08/23/18 22:05 Sputum - Expectorated Sputum Gram Stain - Final 08/23/18 22:05 Sputum - Expectorated Sputum Sputum Culture - Preliminary 08/23/18 02:00 Blood Blood Culture - Preliminary NO GROWTH AFTER 48 HOURS 08/23/18 02:00 Blood Blood Culture - Preliminary NO GROWTH AFTER 48 HOURS - *Routine HEENT Exam Head: Present: normocephalic Eye: Present: PERRL ENT: Present: mucous membranes moist - *Routine Neck Exam Present: supple. Absent: lymphadenopathy - *Routine Respiratory Exam Present: CTA bilaterally - *Routine Cardiovascular Exam Present: RRR - *Routine Abdominal Exam Present: soft, normoactive bowel sounds. Absent: tenderness - *Routine Extremities Exam Absent: cyanosis, clubbing, edema - *Routine Skin Exam Present: warm. Absent: rash - *Routine Neurological Exam Present: alert, oriented X3 Assessment and Plan (1) HCAP (healthcare-associated pneumonia) Current visit: Yes Status: Acute Category: Medical Code(s): J18.9 - Pneumonia, unspecified organism (2) CHF (congestive heart failure) Current visit: Yes Status: Acute Qualifiers: Heart failure type: combined systolic and diastolic Heart failure chronicity: acute on chronic Qualified Code(s): I50.43 - Acute on chronic combined systolic (congestive) and diastolic (congestive) heart failure Category: Medical Code(s): I50.9 - Heart failure, unspecified (3) Overweight Current visit: Yes Status: Acute Category: Medical Code(s): E66.3 - Overweight (4) Renal insufficiency Current visit: No Status: Acute Category: Medical Code(s): N28.9 - Disorder of kidney and ureter, unspecified (5) Diabetes mellitus, insulin dependent (IDDM), uncontrolled Current visit: Yes Status: Acute Category: Medical Code(s): E10.65 - Type 1 diabetes mellitus with hyperglycemia (6) A-fib Current visit: Yes Status: Acute Category: Medical Code(s): I48.91 - Unspecified atrial fibrillation - Assessment and plan all Dx Assessment and Plan for all problems:: Rounded with Dr. Vazquez all orders per George transfer out of step down monitor heart rate
[2018-08-26 07:40] LABS: Basophils # 0.1 K/mm3 (0-0.2); Basophils % 0.7 % (0.1-2.0); Eosinophils # 0.2 K/mm3 (0.0-0.4); Eosinophils % 2.4 % (0.1-12.0); Hematocrit 35.1 % (42.0-52.0); Hemoglobin 11.1 g/dL (14.1-18.0); Lymphocytes # 1.2 K/mm3 (0.7-4.5); Mean Corpuscular HGB Conc 31.5 g/dL (31.8-35.4); Mean Corpuscular Hemoglobin 31.2 pg (27.0-31.2); Mean Platelet Volume 7.6 fl (7.4-10.4); Monocytes # 0.5 K/mm3 (0.1-1.0); Monocytes % 6.6 % (1.7-9.3); Neutrophils % 75.4 % (37.0-80.0); Platelet Count 327 K/mm3 (142-424); Red Blood Count 3.55 M/mm3 (4.60-6.20); Red Cell Distribution Width 15.5 % (11.5-17.5)
[2018-08-26 07:42] LABS: Anion Gap 13.2 mEq/L (5-15); Calcium 9.1 mg/dL (8.5-10.1); Potassium 4.2 mmoL/L (3.5-5.1)
--- NOTE | 2018-08-26 09:14 | Progress Note ---
Subjective Date: 08/26/18 Time: 09:10 Principal diagnosis: A. fib, CHF Interval history: 73-year-old white male in bedside chair in no acute distress. States he is breathing better and feeling better. Telemetry shows continued maintenance of sinus rhythm. Exam Vital signs and Labs for Last 24 Hours: Temp Pulse Resp BP Pulse Ox 97.7 F 70 18 167/73 H 98 08/26/18 08:00 08/26/18 08:00 08/26/18 08:00 08/26/18 08:00 08/26/18 08:00 Laboratory Results - last 24 hr 08/25/18 11:13: POC Glucose 313 H* 08/25/18 16:50: POC Glucose 230 H 08/25/18 21:13: POC Glucose 280 H 08/26/18 07:26: WBC 8.0, RBC 3.55 L, Hgb 11.1 L, Hct 35.1 L, MCV 99.0 H, MCH 31.2, MCHC 31.5 L, RDW 15.5, Plt Count 327, MPV 7.6, Neut % (Auto) 75.4, Lymph % (Auto) 15.0, [place] % (Auto) 6.6, Eos % (Auto) 2.4, Baso % (Auto) 0.7, Neut # (Auto) 6.0, Lymph # (Auto) 1.2, [place] # (Auto) 0.5, Eos # (Auto) 0.2, Baso # (Auto) 0.1 08/26/18 07:26: Sodium 136, Potassium 4.2, Chloride 102, Carbon Dioxide 25, Anion Gap 13.2, BUN 29 H, Creatinine 1.71 H, Estimated Creat Clear 56, Estimated GFR 40 L, Est GFR ( Amer) 48 L, Glucose 284 H, Calcium 9.1 I & O for Last 24 hours: Intake & Output 08/23/18 08/24/18 08/25/18 08/26/18 11:59 11:59 11:59 11:59 Intake Total 1440 / 1440 660 / 660 1210 / 1210 Output Total 2700 / 2700 755 / 755 1025 / 1025 Balance -1260 / -1260 -95 / -95 185 / 185 Weight 224 lb 6 oz 222 lb 4 oz Microbiology Reports for the Last 24 Hours: Microbiology 08/23/18 22:05 Sputum - Expectorated Sputum Gram Stain - Final 08/23/18 22:05 Sputum - Expectorated Sputum Sputum Culture - Preliminary Yeast - *Routine Respiratory Exam Present: CTA bilaterally. Absent: accessory muscle use, rales, rhonchi, wheezes - *Routine Cardiovascular Exam Present: RRR. Absent: murmur, gallop, rubs - *Routine Extremities Exam Absent: edema, calf tenderness - *Routine Neurological Exam Present: alert, oriented X3, moving all extremities Progress Note: A&P (1) HCAP (healthcare-associated pneumonia) Status: Acute Current Visit: Yes (2) CHF (congestive heart failure) Status: Acute Current Visit: Yes (3) Overweight Status: Acute Current Visit: Yes (4) Renal insufficiency Status: Acute Current Visit: No (5) Diabetes mellitus, insulin dependent (IDDM), uncontrolled Status: Acute Current Visit: Yes (6) A-fib Status: Acute Current Visit: Yes Assessment and Plan for All Diagnoses:: Okay for discharge from cardiology standpoint. Meds: Bisoprolol 10 mg twice daily Plavix 75 mg daily Xarelto 15 mg daily Atorvastatin 40 mg daily Imdur 30 mg daily Resume losartan 100 mg daily Recommend adding Lasix 20 mg daily BMP in 1 week with follow-up in our office in 1-2 weeks.
--- NOTE | 2018-08-26 10:17 | Progress Note ---
Internal Medicine - PN: Subj *Date: 08/26/18 *Time: 10:17 Exam Vital signs and Labs for Last 24 Hours: Temp Pulse Resp BP Pulse Ox 97.7 F 70 18 167/73 H 98 08/26/18 08:00 08/26/18 08:00 08/26/18 08:00 08/26/18 08:00 08/26/18 08:00 Laboratory Results - last 24 hr 08/25/18 11:13: POC Glucose 313 H* 08/25/18 16:50: POC Glucose 230 H 08/25/18 21:13: POC Glucose 280 H 08/26/18 07:26: WBC 8.0, RBC 3.55 L, Hgb 11.1 L, Hct 35.1 L, MCV 99.0 H, MCH 31.2, MCHC 31.5 L, RDW 15.5, Plt Count 327, MPV 7.6, Neut % (Auto) 75.4, Lymph % (Auto) 15.0, [place] % (Auto) 6.6, Eos % (Auto) 2.4, Baso % (Auto) 0.7, Neut # (Auto) 6.0, Lymph # (Auto) 1.2, [place] # (Auto) 0.5, Eos # (Auto) 0.2, Baso # (Auto) 0.1 08/26/18 07:26: Sodium 136, Potassium 4.2, Chloride 102, Carbon Dioxide 25, Anion Gap 13.2, BUN 29 H, Creatinine 1.71 H, Estimated Creat Clear 56, Estimated GFR 40 L, Est GFR ( Amer) 48 L, Glucose 284 H, Calcium 9.1 I & O for Last 24 hours: Intake & Output 08/23/18 08/24/18 08/25/18 08/26/18 23:59 23:59 23:59 23:59 Intake Total 1120 / 1120 1060 / 1060 410 / 410 Output Total 2080 / 2080 550 / 550 1000 / 1000 Balance -960 / -960 510 / 510 -590 / -590 Weight 101.775 kg 100.811 kg Microbiology Reports for the Last 24 Hours: Microbiology 08/23/18 22:05 Sputum - Expectorated Sputum Gram Stain - Final 08/23/18 22:05 Sputum - Expectorated Sputum Sputum Culture - Preliminary Yeast Assessment and Plan (1) HCAP (healthcare-associated pneumonia) Current visit: Yes Status: Acute Category: Medical Code(s): J18.9 - Pneumonia, unspecified organism (2) CHF (congestive heart failure) Current visit: Yes Status: Acute Qualifiers: Heart failure type: combined systolic and diastolic Heart failure chronicity: acute on chronic Qualified Code(s): I50.43 - Acute on chronic combined systolic (congestive) and diastolic (congestive) heart failure Category: Medical Code(s): I50.9 - Heart failure, unspecified (3) Overweight Current visit: Yes Status: Acute Category: Medical Code(s): E66.3 - Overweight (4) Renal insufficiency Current visit: No Status: Acute Category: Medical Code(s): N28.9 - Disorder of kidney and ureter, unspecified (5) Diabetes mellitus, insulin dependent (IDDM), uncontrolled Current visit: Yes Status: Acute Category: Medical Code(s): E10.65 - Type 1 diabetes mellitus with hyperglycemia (6) A-fib Current visit: Yes Status: Acute Category: Medical Code(s): I48.91 - Unspecified atrial fibrillation The patient's infection will respond to the chosen ABx?: Yes Is the patient receiving the right drug, dose, and route?: Yes Could a more targeted ABx be ordered?: No (YEAST IN SPUTUM)
--- NOTE | 2018-08-26 10:55 | Discharge Summary ---
General - General Admission date:: 08/23/18 Discharge date: 08/26/18 HPI HPI: this wm who lives at care home - [facility] - has not felt well with progressive sob over the last few days - he dev chest pain last pm and was sent by ems to ed for eval - he was recently in about 3 weeks ago - and just finished abx - pt with recent cath requiring no stents -pt was seen in the ed and found to have inc inflitrate and chf and was having diff and was admitted Hospital Course Hospital Course: pt with slow improvement in resp status and no chest pain and dec o2 requirements - he was seen by [id number] white male with history of coronary artery disease, diabetes mellitus, hypertension and mild cardiomyopathy improved on medical therapy was admitted to the hospital for increasing shortness of breath with some associated chest pain. Chest x-ray noted to show both pneumonia and congestive heart failure. Labs reveal elevated BNP and mildly elevated troponins likely secondary to heart strain from congestive heart failure since patient recently had cardiac catheterization showing mild [id number] disease. Patient has received IV Lasix overnight with significant improvement in his shortness of breath. Denies any further chest discomfort. Patient is a resident of [facility] and is unaware of what medications he takes. Upon review of his admission medicines it appears that carvedilol not be en given recently as it does not appear on that list.. DM, treated since 2016 2. HTN A. CHF B. Echo, 12/2017, LVEF 45% with distal septum and apical hypokinesis. Mild AI, MR, TR. C. Echo, 04/2018, LVEF 50% with concentric LVH, hypokinesis of inferolateral wall, mild , Moderate MR and mild TR 3. Hyperlipidemia 4. Remote tobacco use 5. 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 Fractured hip, 2017 status post repair 7. Hypothyroidism, on supplement 8. CAD A. NSTEMI, 09/2017 B. Cardiac cath, 09/2017, mild CAD of left main, LAD and RCA with dominant circumflex with mid vessel occlusion. BHARTI to circumflex placed. LVEF 40% with LVEDP 50 mm Hg C. Cardiac cath, 06/2018, 1. The left main artery normal 2. The left anterior descending artery has proximal mild luminal irregularities nothing greater than 10% 3. The circumflex artery is a large dominant vessel with mild 10% luminal irregularitiesveloped rapid HR earlier today. Telemetry appears A. fib with RVR in the 140-150 bpm range. BP stable but patient with some SOA with minimal movement. He was given 2 doses of IV lopressor 5 mg and one IV dose of digoxin 0.25 mg without significant change in rate. CHADS-VASC score is 5. Started lovenox 100 mg Subcutaneously Q 12 Hrs along with IV cardizem with 15mg bolus then gtt starting afterward with titration protocol. Consider cardioversion tomorrow if no spontaneous conversion overnight. 4. The right coronary artery small vestigial normal 5. The GRIDER ventriculogram reveals normal 65% 6. The left ventricular end-diastolic pressure 20 mmHg pt did well with meds oreg has been discontinued in favor of bisoprolol 10 mg twice daily. 2. We will discontinue Brilinta and start Plavix since patient will be on Xarelto as well. 3. We will switch Lovenox to Xarelto therapy due to elevated CHADS score. 4. Continue to monitor today and overnight and if stable then discharge back to personal intermediate tomorrow. 5. Would like to obtain a chest x-ray in the a.m. to follow-up on patient's CHF and pneumonia. y for discharge from cardiology standpoint. Meds: Bisoprolol 10 mg twice daily Plavix 75 mg daily Xarelto 15 mg daily Atorvastatin 40 mg daily Imdur 30 mg daily Resume losartan 100 mg daily Recommend adding Lasix 20 mg daily BMP in 1 week with follow-up in our office in 1-2 weeks. pt improved with resp infection and back in nsr and stable ambulation and labs and released to [facility] Objective Vital signs: Temp Pulse Resp BP Pulse Ox 97.7 F 71 19 167/73 H 98 08/26/18 08:00 08/26/18 08:00 08/26/18 08:00 08/26/18 08:00 08/26/18 08:00 no acute distress, obese - *Routine HEENT Exam Head: Present: normocephalic Eye: Present: EOMI, PERRL ENT: Present: mucous membranes dry - *Routine Neck Exam Absent: JVD - *Routine Respiratory Exam Present: decreased breath sounds - *Routine Cardiovascular Exam Present: RRR, murmur, S4 - *Routine Abdominal Exam Present: soft - *Routine Extremities Exam Absent: calf tenderness - *Routine Skin Exam Present: intact - *Routine Neurological Exam Present: alert, oriented X3, CN II-XII intact - Routine Psychiatric Exam Present: normal affect Results Labs on day of discharge: Labs from last 24 hours 08/26/18 08/26/18 08/25/18 07:26 07:26 21:13 WBC 8.0 RBC 3.55 L Hgb 11.1 L Hct 35.1 L MCV 99.0 H MCH 31.2 MCHC 31.5 L RDW 15.5 Plt Count 327 MPV 7.6 Neut % (Auto) 75.4 Lymph % (Auto) 15.0 [place] % (Auto) 6.6 Eos % (Auto) 2.4 Baso % (Auto) 0.7 Neut # (Auto) 6.0 Lymph # (Auto) 1.2 [place] # (Auto) 0.5 Eos # (Auto) 0.2 Baso # (Auto) 0.1 Sodium 136 Potassium 4.2 Chloride 102 Carbon Dioxide 25 Anion Gap 13.2 BUN 29 H Creatinine 1.71 H Estimated Creat Clear 56 Estimated GFR 40 L Est GFR ( Amer) 48 L Glucose 284 H POC Glucose 280 H Calcium 9.1 08/25/18 08/25/18 16:50 11:13 WBC RBC Hgb Hct MCV MCH MCHC RDW Plt Count MPV Neut % (Auto) Lymph % (Auto) [place] % (Auto) Eos % (Auto) Baso % (Auto) Neut # (Auto) Lymph # (Auto) [place] # (Auto) Eos # (Auto) Baso # (Auto) Sodium Potassium Chloride Carbon Dioxide Anion Gap BUN Creatinine Estimated Creat Clear Estimated GFR Est GFR ( Amer) Glucose POC Glucose 230 H 313 H* Calcium Preliminary micro results at discharge 08/23/18 22:05 Sputum Culture - Preliminary Sputum - Expectorated Sputum Yeast 08/23/18 02:00 Blood Culture - Preliminary Blood NO GROWTH AFTER 48 HOURS 08/23/18 02:00 Blood Culture - Preliminary Blood NO GROWTH AFTER 48 HOURS DS: Diagnosis - Discharge Diagnosis (1) HCAP (healthcare-associated pneumonia) Status: Acute (2) CHF (congestive heart failure) Status: Acute (3) Overweight Status: Acute (4) Renal insufficiency Status: Acute (5) Diabetes mellitus, insulin dependent (IDDM), uncontrolled Status: Acute (6) A-fib Status: Acute (7) Yeast pharyngitis Status: Acute Discharge Plan - Patient Discharge Instructions ACTIVITY: Continue current activity DIET: continue same diet Patient Instructions: DI for Pneumonia -- Adult, Low-Sodium Diet - Follow up Plan Disposition: Home, Self-[facility] Medications: Home Medications Medication Instructions Recorded Confirmed Type ascorbic acid (vitamin C) 500 mg 500 mg PO DAILY tab 10/30/17 08/23/18 History tablet atorvastatin 40 mg tablet 40 mg PO HS 10/30/17 08/23/18 History ferrous sulfate 325 mg (65 mg 325 mg PO BID tab 10/30/17 08/23/18 History iron) tablet hydrocodone 5 mg-acetaminophen 325 1 tab PO DAILYP PRN 10/30/17 08/23/18 History mg tablet levothyroxine 50 mcg tablet 50 mcg PO DAILY tab 10/30/17 08/23/18 History losartan 100 mg tablet 100 mg PO DAILY 10/30/17 08/23/18 History magnesium hydroxide 400 mg/5 mL 30 ml PO Q72H PRN 10/30/17 08/23/18 History oral suspension ticagrelor 90 mg tablet 90 mg PO BID 10/30/17 08/23/18 History Isosorbide Mononitrate [Imdur 30mg 30 mg PO DAILY 12/30/17 08/23/18 History ER tablet] Duloxetine HCl [Cymbalta 30mg 30 mg PO DAILY 04/12/18 08/23/18 History capsule] Insulin NPH Hum/Reg Insulin Hm 40 unit SQ BID 04/12/18 08/23/18 History [Novolin 70-30 100 Unit/ml Vial] Loperamide HCl [Loperamide] 2 mg PO Q6HP PRN 04/12/18 08/23/18 History Azithromycin [Zithromax 250mg 250 mg PO DIRECTED 08/23/18 08/23/18 History tab] Cefdinir [Omnicef 300mg Capsule] 300 mg PO BID 08/23/18 08/23/18 History carBAMazepine [Tegretol 100mg 100 mg PO BID 08/23/18 08/23/18 History tablet] Prescriptions/Medication Reconciliation: New Clopidogrel Bisulfate [Plavix 75mg Tab] 75 mg PO DAILY tablet Bisoprolol Fumarate [Zebeta 5mg tablet] 10 mg PO BID #60 tab Fluconazole [Diflucan 100mg tablet] 100 mg PO DAILY #10 tab Furosemide [Lasix 20mg tab] 20 mg PO DAILY #30 tab levoFLOXacin [Levaquin 500mg tab] 500 mg PO 1100 #7 tab carBAMazepine [Tegretol 100mg tablet] 100 mg PO BID tab.chew Rivaroxaban [Xarelto 15mg tablet] 15 mg PO QPMWM #14 tab Continue hydrocodone 5 mg-acetaminophen 325 mg tablet 1 tab PO DAILYP PRN PRN Reason: PAIN magnesium hydroxide 400 mg/5 mL oral suspension 30 ml PO Q72H PRN PRN Reason: Constipation atorvastatin 40 mg tablet 40 mg PO HS ferrous sulfate 325 mg (65 mg iron) tablet 325 mg PO BID tab levothyroxine 50 mcg tablet 50 mcg PO DAILY tab losartan 100 mg tablet 100 mg PO DAILY ascorbic acid (vitamin C) 500 mg tablet 500 mg PO DAILY tab Duloxetine HCl [Cymbalta 30mg capsule] 30 mg PO DAILY Loperamide HCl [Loperamide] 2 mg PO Q6HP PRN PRN Reason: Diarrhea Insulin NPH Hum/Reg Insulin Hm [Novolin 70-30 100 Unit/ml Vial] 40 unit SQ BID Isosorbide Mononitrate [Imdur 30mg ER tablet] 30 mg PO DAILY carBAMazepine [Tegretol 100mg tablet] 100 mg PO BID Discontinued ticagrelor 90 mg tablet 90 mg PO BID Azithromycin [Zithromax 250mg tab] 250 mg PO DIRECTED Cefdinir [Omnicef 300mg Capsule] 300 mg PO BID
== END 2018-08-26 11:27 | disposition home or self-care (01) ==
LOC: 2ND 01:39 → ER 01:39 → 2ND 08:19
PROVIDERS: ADMIT Emergency Medicine; ATTEND Emergency Medicine

== ENCOUNTER 2018-09-11 01:36 | Observation (INO) ==
[2018-09-11 01:53] LABS: Basophils # 0.1 K/mm3 (0-0.2); Basophils % 0.5 % (0.1-2.0); Eosinophils # 0.3 K/mm3 (0.0-0.4); Eosinophils % 2.3 % (0.1-12.0); Hematocrit 40.3 % (42.0-52.0); Hemoglobin 12.3 g/dL (14.1-18.0); Lymphocytes # 1.3 K/mm3 (0.7-4.5); Lymphocytes % 11.7 % (10-50); Mean Corpuscular HGB Conc 30.4 g/dL (31.8-35.4); Mean Corpuscular Hemoglobin 30.6 pg (27.0-31.2); Mean Corpuscular Volume 100.6 fl (80-94); Mean Platelet Volume 7.6 fl (7.4-10.4); Monocytes # 1.1 K/mm3 (0.1-1.0); Neutrophils # 8.4 K/mm3 (1.8-7.8); Neutrophils % 75.5 % (37.0-80.0); Platelet Count 342 K/mm3 (142-424); Red Blood Count 4.01 M/mm3 (4.60-6.20); Red Cell Distribution Width 16.3 % (11.5-17.5); White Blood Count 11.1 K/mm3 (4.8-10.8)
[2018-09-11 02:10] LABS: Calcium 8.6 mg/dL (8.5-10.1)
[2018-09-11 02:42] LABS: Appearance,Urine CLEAR (Clear); Bilirubin,Urine Negative (Negative); Blood, Urine TRACE-I (Negative); Color,Urine YELLOW (Yellow); Glucose,Urine (UA) 3+ (Negative); Ketones,Urine Negative (Negative); Leukocyte Esterase,Urine Negative (Negative); Protein,Urine 3+ (Negative); Specific Gravity, Urine 1.025 (1.005-1.030); Urobilinogen,Urine 0.2 EU/dl (0.2)
[2018-09-11 02:43] LABS: Microscopic, Urine URINE MICROSCOPIC (MICROSCOPIC)
[2018-09-11 02:44] LABS: Squamous Epithelial Cell,Urine Occasional #/hpf (0-5)
--- NOTE | 2018-09-11 05:24 | Emergency Department Note ---
ED Disposition Clinical Impression: Hypertensive emergency, Renal insufficiency Chest pain Qualifiers: Chest pain type: precordial pain Qualified Code(s): R07.2 - Precordial pain Diabetes mellitus, insulin dependent (IDDM), uncontrolled Qualifiers: Glycemic state: with hyperglycemia Qualified Code(s): E10.65 - Type 1 diabetes mellitus with hyperglycemia Aortic stenosis Qualifiers: Cardiac valve disease etiology: nonrheumatic Qualified Code(s): I35.0 - Nonrheumatic aortic (valve) stenosis Obesity Qualifiers: Obesity type: due to excess calories Obesity classification: adult class 3 (BMI >= 40) Serious obesity comorbidity presence: with serious comorbidity Body mass index: BMI 40.0-44.9 Qualified Code(s): E66.01 - Morbid (severe) obesity due to excess calories; Z68.41 - Body mass index (BMI) 40.0-44.9, adult Hypothyroidism Qualifiers: Hypothyroidism type: acquired Qualified Code(s): E03.9 - Hypothyroidism, unspecified Disposition: Admitted as Observation Condition on Discharge: Good Referrals: Dave Vazquez MD [Primary Care Provider] - - Critical Care Critical Care Time: No Attestation: On 09/11/18, the high probability of a clinically significant, sudden or life threatening deterioration of the following system(s) required my full and direct attention, intervention and personal management. The time I documented below is in addition to time spent performing reported procedures but includes the following listed in this critical care notation. Medical Decision Making - Medical Records Medical records reviewed: Yes: I reviewed the patient's medical records. - Yogesh Inquiry Pt receiving controlled substance: No Vital Signs: 09/11/18 01:37 09/11/18 02:47 09/11/18 04:04 Temperature 98.3 F Temperature Source Oral Pulse Rate [Right Radial] 72 69 65 Respiratory Rate 18 18 20 Blood Pressure [Right Arm] 210/108 H 160/100 H 164/86 H Blood Pressure Mean [Right Arm] 142 120 112 Blood Pressure Source [Right Arm] Manual Cuff/ Auscultation Manual Cuff/ Auscultation Manual Cuff/ Auscultation Blood Pressure Position [Right Arm] Supine Sitting 02 Sat by Pulse Oximetry 92 L 97 95 Oxygen Delivery Method Room Air Nasal Cannula Room Air Oxygen Flow Rate (LPM) 2 09/11/18 04:53 Temperature Temperature Source Pulse Rate [Right Radial] 66 Respiratory Rate Blood Pressure [Right Arm] 180/90 H Blood Pressure Mean [Right Arm] 120 Blood Pressure Source [Right Arm] Manual Cuff/ Auscultation Blood Pressure Position [Right Arm] Supine 02 Sat by Pulse Oximetry 93 L Oxygen Delivery Method Room Air Oxygen Flow Rate (LPM) - Lab Data Lab results reviewed: Yes: I reviewed the patient's lab results. Lab Results 09/11/18 01:45: WBC 11.1 H, RBC 4.01 L, Hgb 12.3 L, Hct 40.3 L, MCV 100.6 H, MCH 30.6, MCHC 30.4 L, RDW 16.3, Plt Count 342, MPV 7.6, Neut % (Auto) 75.5, Lymph % (Auto) 11.7, [place] % (Auto) 10.0 H, Eos % (Auto) 2.3, Baso % (Auto) 0.5, Neut # (Auto) 8.4 H, Lymph # (Auto) 1.3, [place] # (Auto) 1.1 H, Eos # (Auto) 0.3, Baso # (Auto) 0.1 09/11/18 01:45: Sodium 133 L, Potassium 4.0, Chloride 99, Carbon Dioxide 25, Anion Gap 13.0, BUN 30 H, Creatinine 1.72 H, Estimated Creat Clear 40, Estimated GFR 39 L, Est GFR ( Amer) 48 L, Glucose 433 H*, Calcium 8.6, Troponin I 0.04 09/11/18 02:35: Urine Color Yellow, Urine Appearance Clear, Urine pH 6.0, Ur Specific [place] 1.025, Urine Protein 3+, Urine Glucose (UA) 3+, Urine Ketones Negative, Urine Blood Trace-i, Urine Nitrate Negative, Urine Bilirubin Negative, Urine Urobilinogen 0.2, Ur Leukocyte Esterase Negative, Urine RBC 3-5, Urine WBC 3-5, Ur Squamous Epith Cells Occasional 09/11/18 04:35: Troponin I 0.05 Result diagrams: 09/11/18 01:45 09/11/18 01:45 Orders (Tests/Meds): ED MEDICATIONS Discontinued Medications Generic Name Dose Route Start Last Admin Trade Name Freq PRN Reason Stop Dose Admin Aspirin 324 mg 09/11/18 02:37 09/11/18 02:38 Aspirin 81mg Chewable Tablet PO 09/11/18 02:38 324 mg ONCE ONE Administration Clonidine HCl 0.1 mg 09/11/18 02:35 09/11/18 02:36 Clonidine 0.1mg Tablet PO 09/11/18 02:36 0.1 mg ONCE ONE Administration Furosemide 40 mg 09/11/18 06:24 09/11/18 06:26 Lasix 40mg/4ml Vial IV 09/11/18 06:25 40 mg ONCE ONE Administration Insulin Human Regular 5 unit 09/11/18 05:46 09/11/18 05:52 Humulin R Insulin 100 Units/Ml 10ml Vial IVP 09/11/18 05:47 5 unit ONCE ONE Administration Nitroglycerin 1 gm 09/11/18 02:37 09/11/18 02:38 Nitroglycerin 1 Inch Oint Udp TD 09/11/18 02:38 1 gm ONCE ONE Administration ORDERS Category Date Time Status CT head/brain wo con Stat Cat Scan 09/11/18 01:51 Taken XR chest portable Stat Exams 09/11/18 01:44 Taken Urinalysis and Microscopic Stat Lab 09/11/18 02:35 Ordered - Radiology Data #1 Image(s): Chest Image Reviewed: Yes I reviewed the patient's radiology image Preliminary Findings: Abnormal (mild chf ) - ECG Data Tracing #1 Normal Sinus Rhythm: Yes Ischemic changes: non-specific ST-T wave changes ECG compared to prior tracings: there are no significant changes Resp/SOB HPI - General Chief Complaint: Shortness of Breath/Dyspnea Stated Complaint: SOA Time Seen by Provider: 09/11/18 01:50 Mode of Arrival: EMS Limitations: Physical Limitations Description of Symptoms (Recalled from ER Triage Doc. by RN): Pt reports he woke up feeling hot and having some difficulty breathing. Pt denies CP. [facility] reporgs high blood pressure and headache - History of Present Illness pt with sob and chest pain and elevated bp and sent from correction MD Complaint: shortness of breath, chest pain Onset (ago): day(s) Context: elevated blood glucose Severity: moderate Known history of: diabetes Associated symptoms: chest pain - Related Data Home oxygen amount: none Home Medications Medication Instructions Recorded Confirmed ascorbic acid (vitamin C) 500 mg 500 mg PO DAILY tab 10/30/17 09/11/18 tablet atorvastatin 40 mg tablet 40 mg PO HS 10/30/17 09/11/18 ferrous sulfate 325 mg (65 mg 325 mg PO BID tab 10/30/17 09/11/18 iron) tablet hydrocodone 5 mg-acetaminophen 325 1 tab PO DAILYP PRN 10/30/17 09/11/18 mg tablet levothyroxine 50 mcg tablet 50 mcg PO DAILY tab 10/30/17 09/11/18 magnesium hydroxide 400 mg/5 mL 30 ml PO Q72H PRN 10/30/17 09/11/18 oral suspension Isosorbide Mononitrate [Imdur 30mg 30 mg PO DAILY 12/30/17 09/11/18 ER tablet] Duloxetine HCl [Cymbalta 30mg 30 mg PO DAILY 04/12/18 09/11/18 capsule] Insulin NPH Hum/Reg Insulin Hm 40 unit SQ BID 04/12/18 09/11/18 [Novolin 70-30 100 Unit/ml Vial] Loperamide HCl [Loperamide] 2 mg PO Q6HP PRN 04/12/18 09/11/18 carBAMazepine [Tegretol 100mg 100 mg PO BID 08/23/18 09/11/18 tablet] Bisoprolol Fumarate [Zebeta 5mg 10 mg PO BID 09/11/18 09/11/18 tablet] Clopidogrel Bisulfate [Plavix 75mg 75 mg PO DAILY 09/11/18 09/11/18 Tab] Fluconazole [Diflucan 100mg tablet] 100 mg PO DAILY 09/11/18 09/11/18 Furosemide [Lasix 20mg tab] 20 mg PO DAILY 09/11/18 09/11/18 Rivaroxaban [Xarelto 15mg tablet] 15 mg PO DAILY 09/11/18 09/11/18 levoFLOXacin [Levaquin 500mg 500 mg PO DAILY 09/11/18 09/11/18 tab] Allergies Allergy/AdvReac Type Severity Reaction Status Date / Time No Known Allergies Allergy Verified 09/11/18 01:[address] [facility] History I have reviewed the patient's past medical history: Yes Medical History: Reports:: Cancer, Cardiomyopathy, Coronary Artery Disease, Diabetes Mellitus Type 2, Hypertension, Internal Pacemaker, Myocardial Infarction Denies:: Diabetes Mellitus Type 1, MRSA Other Medical History: Reports: Anemia, Hypothyroidism Laterality Cases: Left: Total Hip Replacement, Bilateral: Tonsillectomy Other Surgeries: Yes: Colonoscopy, Pacemaker, Other Amputation: No Fractures: Yes - Social History Smoking Status: Former smoker Tobacco Type: cigarettes Alcohol Intake: never Alcohol Intake Frequency:: other Substance Use Type: denies use Occupational Status: unemployed, disabled Housing: assisted living facility Household Members: none - Psychiatric History Expresses thoughts of harming self/others: None Suicide Plan Description: No Plan Family Hx:: Diabetes, Stroke ROS Obtained: Yes All systems reviewed & no additional complaints - Constitutional Constitutional: Denies fever(s) - Eyes Eyes: Denies change in vision - ENT Ears, Nose, Mouth, and Throat: Denies sore throat - Cardiovascular Cardiovascular: Denies chest pain - Respiratory Respiratory: No cough - Gastrointestinal Gastrointestingal: Denies: abdominal pain - Genitourinary Male Genitourinary: Denies hematuria - Musculoskeletal Musculoskeletal: Denies joint swelling - Integumentary/Breasts Skin/Breast: Denies rash - Neurologic Neurologic: Denies seizure-like activity Physical Exam - General General appearance: in no apparent distress - Head Head exam: normocephalic - Eye Eye exam: Present: PERRL, EOMI - ENT ENT exam: Present: mucous membranes dry - Neck Neck exam: Present: trachea midline - Respiratory Respiratory exam: Present: other (dec bs bilat ). Absent: respiratory distress - Cardiovascular Cardiovascular exam: Present: regular rate, systolic murmur, +S4 - Abdominal Exam Abdominal exam: Present: soft - Extremities Exam Extremities exam: Present: pedal edema. Absent: calf tenderness - Neurological Exam Neurological exam: Present: alert, CN II-XII intact - Psychiatric Psychiatric exam: Present: normal affect - Skin Skin exam: Absent: rash
--- NOTE | 2018-09-11 07:58 | History & Physical Report ---
*Admission Date: 09/11/18 *Chief complaint: chest pain *History of present illness: [facility] was not feeling well and had sob with elevated bp - he has hx of iddm and heart disease - he was sent to ed and had eklevated bp and chest pain with clinical evid of chf - he was admitted for treatment and eval [facility] History I have reviewed the patient's past medical history: Yes Medical History: Reports:: Cancer, Cardiomyopathy, Coronary Artery Disease, Diabetes Mellitus Type 2, Hypertension, Internal Pacemaker, Myocardial Infarction Denies:: Diabetes Mellitus Type 1, MRSA Other Medical History: Reports: Anemia, Hypothyroidism Laterality Cases: Left: Total Hip Replacement, Bilateral: Tonsillectomy Other Surgeries: Yes: Colonoscopy, Pacemaker, Other Amputation: No Fractures: Yes - *Social History Smoking Status: Former smoker Tobacco Type: cigarettes Alcohol Intake: never Alcohol Intake Frequency:: other Substance Use Type: denies use Occupational Status: unemployed, disabled Housing: assisted living facility Household Members: none - Psychiatric History Expresses thoughts of harming self/others: None Suicide Plan Description: No Plan *Family Hx:: Diabetes, Stroke Review of Systems - Review of Systems Review of systems:: pertinent systems reviewed and negative unless documented below - Constitutional Denies fever(s) - Eyes Denies change in vision - ENT Denies change in voice - *Cardiovascular Reports chest pain at rest, Reports shortness of breath - *Respiratory Denies cough, Denies coughing up blood - *Gastrointestinal Denies abdominal pain - *Genitourinary Denies blood in urine - *Musculoskeletal Denies joint pain - Integumentary/Breasts Denies rash - *Neurologic Denies seizure-like activity - Psychiatric Reports anxiety Meds Home Medications Medication Instructions Recorded Confirmed Type ascorbic acid (vitamin C) 500 mg 500 mg PO DAILY tab 10/30/17 09/11/18 History tablet atorvastatin 40 mg tablet 40 mg PO HS 10/30/17 09/11/18 History ferrous sulfate 325 mg (65 mg 325 mg PO BID tab 10/30/17 09/11/18 History iron) tablet hydrocodone 5 mg-acetaminophen 325 1 tab PO DAILYP PRN 10/30/17 09/11/18 History mg tablet levothyroxine 50 mcg tablet 50 mcg PO DAILY tab 10/30/17 09/11/18 History magnesium hydroxide 400 mg/5 mL 30 ml PO Q72H PRN 10/30/17 09/11/18 History oral suspension Isosorbide Mononitrate [Imdur 30mg 30 mg PO DAILY 12/30/17 09/11/18 History ER tablet] Duloxetine HCl [Cymbalta 30mg 30 mg PO DAILY 04/12/18 09/11/18 History capsule] Insulin NPH Hum/Reg Insulin Hm 40 unit SQ BID 04/12/18 09/11/18 History [Novolin 70-30 100 Unit/ml Vial] Loperamide HCl [Loperamide] 2 mg PO Q6HP PRN 04/12/18 09/11/18 History carBAMazepine [Tegretol 100mg 100 mg PO BID 08/23/18 09/11/18 History tablet] Bisoprolol Fumarate [Zebeta 5mg 10 mg PO BID 09/11/18 09/11/18 History tablet] Clopidogrel Bisulfate [Plavix 75mg 75 mg PO DAILY 09/11/18 09/11/18 History Tab] Furosemide [Lasix 20mg tab] 20 mg PO DAILY 09/11/18 09/11/18 History Rivaroxaban [Xarelto 15mg tablet] 15 mg PO DAILY 09/11/18 09/11/18 History Allergies Allergy/AdvReac Type Severity Reaction Status Date / Time No Known Allergies Allergy Verified 09/11/18 01:54 Exam Vital signs and Labs for Last 24 Hours: Temp Pulse Resp BP Pulse Ox 98.3 F 65 19 179/88 H 93 L 09/11/18 01:37 09/11/18 06:59 09/11/18 06:59 09/11/18 06:59 09/11/18 06:59 Laboratory Results - last 24 hr 09/11/18 01:45: WBC 11.1 H, RBC 4.01 L, Hgb 12.3 L, Hct 40.3 L, MCV 100.6 H, MCH 30.6, MCHC 30.4 L, RDW 16.3, Plt Count 342, MPV 7.6, Neut % (Auto) 75.5, Lymph % (Auto) 11.7, [place] % (Auto) 10.0 H, Eos % (Auto) 2.3, Baso % (Auto) 0.5, Neut # (Auto) 8.4 H, Lymph # (Auto) 1.3, [place] # (Auto) 1.1 H, Eos # (Auto) 0.3, Baso # (Auto) 0.1 09/11/18 01:45: Sodium 133 L, Potassium 4.0, Chloride 99, Carbon Dioxide 25, Anion Gap 13.0, BUN 30 H, Creatinine 1.72 H, Estimated Creat Clear 40, Estimated GFR 39 L, Est GFR ( Amer) 48 L, Glucose 433 H*, Calcium 8.6, Troponin I 0.04 09/11/18 02:35: Urine Color Yellow, Urine Appearance Clear, Urine pH 6.0, Ur Specific [place] 1.025, Urine Protein 3+, Urine Glucose (UA) 3+, Urine Ketones Negative, Urine Blood Trace-i, Urine Nitrate Negative, Urine Bilirubin Negative, Urine Urobilinogen 0.2, Ur Leukocyte Esterase Negative, Urine RBC 3-5, Urine WBC 3-5, Ur Squamous Epith Cells Occasional 09/11/18 04:35: Troponin I 0.05 I & O for Last 24 hours: Intake & Output 09/08/18 09/09/18 09/10/18 09/11/18 11:59 11:59 11:59 11:59 Output Total 300 / 300 Balance -300 / -300 Weight 294 lb - Constitutional no acute distress, obese - *Routine HEENT Exam Head: Present: normocephalic Eye: Present: EOMI, PERRL ENT: Present: mucous membranes dry - *Routine Neck Exam Present: supple. Absent: JVD - *Routine Respiratory Exam Present: decreased breath sounds - *Routine Cardiovascular Exam Present: RRR, murmur, S4 - *Routine Abdominal Exam Present: soft - *Routine Extremities Exam Present: edema. Absent: calf tenderness - *Routine Skin Exam Present: intact - *Routine Neurological Exam Present: alert, oriented X3, CN II-XII intact. Absent: motor deficit - Routine Psychiatric Exam Present: normal affect Assessment and Plan (1) Diabetes mellitus Current visit: Yes Status: Acute Category: Medical Code(s): E11.9 - Type 2 diabetes mellitus without complications (2) Renal insufficiency Current visit: No Status: Acute Category: Medical Code(s): N28.9 - Disorder of kidney and ureter, unspecified (3) Near syncope Current visit: No Status: Acute Category: Medical Code(s): R55 - Syncope and collapse (4) Obesity (BMI 30-39.9) Current visit: Yes Status: Acute Category: Medical Code(s): E66.9 - Obesity, unspecified
[2018-09-11 08:14] LABS: T4 (Thyroxine) 4.5 ug/dl (4.7-13.3); Thyroid Stimulating Hormone 4.25 uIU/ml (0.358-3.740)
--- NOTE | 2018-09-11 09:09 | Pharmacy Consult Notes ---
[facility] Pharmacy VTE Monitoring - Patient Demographics Admission date: 09/11/18 Report Date: 09/11/18 Time: 09:09 Allergies/Adverse Reactions: Patient Allergies No Known Allergies Allergy (Verified 09/11/18 01:54) Height: 1.78 m Weight: 133.356 kg Patient Problems: Current Active Problems Hypertensive emergency (Acute) Renal insufficiency (Acute) Diabetes mellitus, insulin dependent (IDDM), uncontrolled (Acute) Chest pain (Acute) Aortic stenosis (Acute) Obesity (Acute) Hypothyroidism (Chronic) - VTE Risk Labs: VTE Related Lab Results Hgb 12.3 g/dL (14.1-18.0) L 09/11/18 01:45 Hct 40.3 % (42.0-52.0) L 09/11/18 01:45 Plt Count 342 K/mm3 (142-424) 09/11/18 01:45 BUN 30 mg/dL (7-18) H 09/11/18 01:45 Creatinine 1.72 mg/dL (0.70-1.30) H 09/11/18 01:45 Estimated Creat Clear 40 mL/min (50-200) 09/11/18 01:45 - Prophylaxis VTE Prophylaxis Ordered?: Yes Types of VTE Prophylaxis: TEDS Knee High, Pharmacological Location of Applied Device: Bilateral Lower Extremeties Pharmacologic Type: Other (XARELTO) - VTE Diagnosis Confirmed Treatment or plan recommended: Continue Current Treatment
[2018-09-12 07:03] LABS: Basophils # 0.1 K/mm3 (0-0.2); Basophils % 0.6 % (0.1-2.0); Eosinophils # 0.3 K/mm3 (0.0-0.4); Hematocrit 34.3 % (42.0-52.0); Hemoglobin 11.4 g/dL (14.1-18.0); Lymphocytes # 1.4 K/mm3 (0.7-4.5); Lymphocytes % 14.9 % (10-50); Mean Corpuscular HGB Conc 33.3 g/dL (31.8-35.4); Mean Corpuscular Hemoglobin 32.3 pg (27.0-31.2); Mean Corpuscular Volume 97.2 fl (80-94); Mean Platelet Volume 7.5 fl (7.4-10.4); Monocytes # 0.8 K/mm3 (0.1-1.0); Monocytes % 8.8 % (1.7-9.3); Neutrophils # 6.7 K/mm3 (1.8-7.8); Neutrophils % 72.6 % (37.0-80.0); Platelet Count 295 K/mm3 (142-424); Red Blood Count 3.53 M/mm3 (4.60-6.20); White Blood Count 9.2 K/mm3 (4.8-10.8)
[2018-09-12 07:14] LABS: Anion Gap 14.2 mEq/L (5-15); Calcium 8.3 mg/dL (8.5-10.1); Potassium 4.2 mmoL/L (3.5-5.1)
--- NOTE | 2018-09-12 08:17 | Progress Note ---
Internal Medicine - PN: Subj *Date: 09/12/18 *Time: 08:16 Interval history: doing better- no chest pain Exam Vital signs and Labs for Last 24 Hours: Temp Pulse Resp BP Pulse Ox 97.9 F 67 20 192/92 H 94 L 09/12/18 08:00 09/12/18 08:00 09/12/18 08:00 09/12/18 08:00 09/12/18 08:00 Laboratory Results - last 24 hr 09/11/18 01:45: TSH 4.25 H, Thyroxine (T4) 4.5 L 09/11/18 08:10: POC Glucose 465 H* 09/11/18 08:38: Troponin I 0.04 09/11/18 08:38: B-Natriuretic Peptide 2820 H 09/11/18 11:30: POC Glucose 435 H* 09/11/18 12:45: Troponin I 0.05 09/11/18 17:13: POC Glucose 274 H 09/11/18 20:14: POC Glucose 450 H* 09/12/18 06:04: POC Glucose 307 H* 09/12/18 06:38: WBC 9.2, RBC 3.53 L, Hgb 11.4 L, Hct 34.3 L, MCV 97.2 H, MCH 32.3 H, MCHC 33.3, RDW 16.0, Plt Count 295, MPV 7.5, Neut % (Auto) 72.6, Lymph % (Auto) 14.9, [place] % (Auto) 8.8, Eos % (Auto) 3.0, Baso % (Auto) 0.6, Neut # (Auto) 6.7, Lymph # (Auto) 1.4, [place] # (Auto) 0.8, Eos # (Auto) 0.3, Baso # (Auto) 0.1 09/12/18 06:38: Sodium 134 L, Potassium 4.2, Chloride 100, Carbon Dioxide 24, Anion Gap 14.2, BUN 36 H, Creatinine 1.61 H, Estimated Creat Clear 62, Estimated GFR 42 L, Est GFR ( Amer) 51 L, Glucose 358 H, Calcium 8.3 L I & O for Last 24 hours: Intake & Output 09/09/18 09/10/18 09/11/18 09/12/18 11:59 11:59 11:59 11:59 Intake Total 1440 / 1440 Output Total 850 / 850 1600 / 1600 Balance -850 / -850 -160 / -160 Weight 224 lb 234 lb 1 oz - Constitutional no acute distress, obese - *Routine HEENT Exam Head: Present: normocephalic Eye: Present: EOMI, PERRL ENT: Present: mucous membranes dry - *Routine Neck Exam Absent: JVD - *Routine Respiratory Exam Present: decreased breath sounds - *Routine Cardiovascular Exam Present: RRR, murmur, S4 - *Routine Abdominal Exam Present: soft - *Routine Extremities Exam Present: edema. Absent: calf tenderness - *Routine Skin Exam Present: intact - *Routine Neurological Exam Present: alert, oriented X3, CN II-XII intact - Routine Psychiatric Exam Present: normal affect Assessment and Plan (1) Diabetes mellitus Current visit: Yes Status: Acute Category: Medical Code(s): E11.9 - Type 2 diabetes mellitus without complications (2) Renal insufficiency Current visit: No Status: Acute Category: Medical Code(s): N28.9 - Disorder of kidney and ureter, unspecified (3) Near syncope Current visit: No Status: Acute Category: Medical Code(s): R55 - Syncope and collapse (4) Obesity (BMI 30-39.9) Current visit: Yes Status: Acute Category: Medical Code(s): E66.9 - Obesity, unspecified
--- NOTE | 2018-09-13 08:55 | Progress Note ---
Internal Medicine - PN: Subj *Date: 09/13/18 *Time: 08:54 Interval history: doing better Exam Vital signs and Labs for Last 24 Hours: Temp Pulse Resp BP Pulse Ox 98.4 F 63 17 174/84 H 97 09/13/18 08:00 09/13/18 08:00 09/13/18 08:22 09/13/18 08:00 09/13/18 08:22 Laboratory Results - last 24 hr 09/12/18 10:54: POC Glucose 537 H* 09/12/18 11:05: Random Glucose 503 H* 09/12/18 16:15: POC Glucose 418 H* 09/12/18 19:46: POC Glucose 416 H* 09/13/18 06:22: POC Glucose 262 H I & O for Last 24 hours: Intake & Output 09/10/18 09/11/18 09/12/18 09/13/18 11:59 11:59 11:59 11:59 Intake Total 1440 / 1440 2053 Output Total 850 / 850 1600 / 1600 1620 / 1620 Balance -850 / -850 -160 / -160 434 / 434 Weight 224 lb 234 lb 1 oz 232 lb 5 oz - Constitutional no acute distress, obese - *Routine HEENT Exam Head: Present: normocephalic Eye: Present: EOMI, PERRL ENT: Present: mucous membranes dry - *Routine Neck Exam Absent: JVD - *Routine Respiratory Exam Present: rhonchi - *Routine Cardiovascular Exam Present: RRR, murmur - *Routine Abdominal Exam Present: soft - *Routine Extremities Exam Absent: full ROM - *Routine Skin Exam Present: intact - *Routine Neurological Exam Present: alert, oriented X3, CN II-XII intact - Routine Psychiatric Exam Present: normal affect Assessment and Plan (1) Diabetes mellitus Current visit: Yes Status: Acute Category: Medical Code(s): E11.9 - Type 2 diabetes mellitus without complications (2) Renal insufficiency Current visit: No Status: Acute Category: Medical Code(s): N28.9 - Disorder of kidney and ureter, unspecified (3) Near syncope Current visit: No Status: Acute Category: Medical Code(s): R55 - Syncope and collapse (4) Obesity (BMI 30-39.9) Current visit: Yes Status: Acute Category: Medical Code(s): E66.9 - Obesity, unspecified (5) CHF (congestive heart failure) Current visit: Yes Status: Acute Category: Medical Code(s): I50.9 - Heart failure, unspecified
[2018-09-14 07:20] LABS: Basophils # 0.1 K/mm3 (0-0.2); Basophils % 0.6 % (0.1-2.0); Eosinophils # 0.3 K/mm3 (0.0-0.4); Eosinophils % 3.6 % (0.1-12.0); Hematocrit 37.6 % (42.0-52.0); Hemoglobin 12.1 g/dL (14.1-18.0); Lymphocytes # 1.5 K/mm3 (0.7-4.5); Lymphocytes % 17.2 % (10-50); Mean Corpuscular HGB Conc 32.3 g/dL (31.8-35.4); Mean Corpuscular Hemoglobin 31.5 pg (27.0-31.2); Mean Corpuscular Volume 97.7 fl (80-94); Mean Platelet Volume 7.4 fl (7.4-10.4); Monocytes # 0.7 K/mm3 (0.1-1.0); Monocytes % 7.7 % (1.7-9.3); Neutrophils # 6.2 K/mm3 (1.8-7.8); Neutrophils % 70.9 % (37.0-80.0); Platelet Count 309 K/mm3 (142-424); Red Blood Count 3.85 M/mm3 (4.60-6.20); Red Cell Distribution Width 16.1 % (11.5-17.5); White Blood Count 8.7 K/mm3 (4.8-10.8)
--- NOTE | 2018-09-14 07:36 | Consult Report ---
History of Present Illness Consult date: 09/14/18 Requesting physician: Dave Vazquez Consult reason: shortness of breath Chief complaint: SOA Additional Medical History:: 1. DM, treated since 2015 2. HTN A. CHF B. Echo, 12/2017, LVEF 45% with distal septum and apical hypokinesis. Mild AI, MR, TR. C. Echo, 04/2018, LVEF 50% with concentric LVH, hypokinesis of inferolateral wall, mild , Moderate MR and mild TR 3. Hyperlipidemia 4. Remote tobacco use 5. 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 Fractured hip, 2017 status post repair 7. Hypothyroidism, on supplement 8. CAD A. NSTEMI, 09/2017 B. Cardiac cath, 09/2017, mild CAD of left main, LAD and RCA with dominant circumflex with mid vessel occlusion. BHARTI to circumflex placed. LVEF 40% with LVEDP 50 mm Hg C. Cardiac cath, 06/2018, 1. The left main artery normal 2. The left anterior descending artery has proximal mild luminal irregularities nothing greater than 10% 3. The circumflex artery is a large dominant vessel with mild 10% luminal irregularities 4. The right coronary artery small vestigial normal 5. The GRIDER ventriculogram reveals normal 65% 6. The left ventricular end-diastolic pressure 20 mmHg History of present illness: 73-year-old white male with known coronary artery disease, ischemic cardia myopathy and recurrent congestive heart failure with uncontrolled diabetes mellitus was admitted to the hospital for increasing shortness of breath. Patient noted to have elevated blood pressure along with elevated BNP and evidence of mild congestive heart failure. Troponins have remained normal. Patient clinically has improved some but still has some shortness of breath. He denies any chest pain. Patient admits to dietary indiscretion. Cardiology consulted for evaluation recommendations. [facility] History Medical History: Reports:: Cancer, Cardiomyopathy, Coronary Artery Disease, Diabetes Mellitus Type 2, Hypertension, Internal Pacemaker, Myocardial Infarction Denies:: Diabetes Mellitus Type 1, MRSA Other Medical History: Reports: Anemia, Hypothyroidism Laterality Cases: Left: Total Hip Replacement, Bilateral: Tonsillectomy Other Surgeries: Yes: Colonoscopy, Pacemaker, Other Amputation: No Fractures: Yes - *Social History Educational Level: Attended College Smoking Status: Former smoker Tobacco Type: cigarettes Smoking End Date: 1999 Alcohol Intake: never Alcohol Intake Frequency:: other Substance Use Type: denies use Occupational Status: unemployed, disabled Housing: assisted living facility Household Members: none - Psychiatric History Expresses thoughts of harming self/others: None Suicide Plan Description: No Plan *Family Hx:: Diabetes, Stroke Meds Home Medications Medication Instructions Recorded Confirmed Type ascorbic acid (vitamin C) 500 mg 500 mg PO DAILY tab 10/30/17 09/11/18 History tablet atorvastatin 40 mg tablet 40 mg PO HS 10/30/17 09/11/18 History ferrous sulfate 325 mg (65 mg 325 mg PO BID tab 10/30/17 09/11/18 History iron) tablet hydrocodone 5 mg-acetaminophen 325 1 tab PO DAILYP PRN 10/30/17 09/11/18 History mg tablet levothyroxine 50 mcg tablet 50 mcg PO DAILY tab 10/30/17 09/11/18 History magnesium hydroxide 400 mg/5 mL 30 ml PO Q72H PRN 10/30/17 09/11/18 History oral suspension Isosorbide Mononitrate [Imdur 30mg 30 mg PO DAILY 12/30/17 09/11/18 History ER tablet] Duloxetine HCl [Cymbalta 30mg 30 mg PO DAILY 04/12/18 09/11/18 History capsule] Insulin NPH Hum/Reg Insulin Hm 40 unit SQ BID 04/12/18 09/11/18 History [Novolin 70-30 100 Unit/ml Vial] Loperamide HCl [Loperamide] 2 mg PO Q6HP PRN 04/12/18 09/11/18 History carBAMazepine [Tegretol 100mg 100 mg PO BID 08/23/18 09/11/18 History tablet] Bisoprolol Fumarate [Zebeta 5mg 10 mg PO BID 09/11/18 09/11/18 History tablet] Clopidogrel Bisulfate [Plavix 75mg 75 mg PO DAILY 09/11/18 09/11/18 History Tab] Furosemide [Lasix 20mg tab] 20 mg PO DAILY 09/11/18 09/11/18 History Rivaroxaban [Xarelto 15mg tablet] 15 mg PO DAILY 09/11/18 09/11/18 History Allergies Allergy/AdvReac Type Severity Reaction Status Date / Time No Known Allergies Allergy Verified 09/11/18 01:54 Review of Systems - *Cardiovascular Reports shortness of breath, Reports shortness of breath with activity, Denies chest pain - *Respiratory Reports shortness of breath, Reports shortness of breath with activity - *Gastrointestinal Denies abdominal pain, Denies loose stools - *Genitourinary Denies blood in urine - *Musculoskeletal Denies joint pain - *Neurologic Denies seizure-like activity Exam Vital signs and Labs for Last 24 Hours: Temp Pulse Resp BP Pulse Ox 97.6 F 60 21 196/80 H 96 09/14/18 03:28 09/14/18 04:00 09/14/18 03:28 09/14/18 03:28 09/14/18 03:28 Laboratory Results - last 24 hr 09/13/18 11:10: POC Glucose 302 H* 09/13/18 16:15: POC Glucose 192 H 09/13/18 19:51: POC Glucose 331 H* 09/14/18 06:25: POC Glucose 165 H 09/14/18 06:48: WBC 8.7, RBC 3.85 L, Hgb 12.1 L, Hct 37.6 L, MCV 97.7 H, MCH 31.5 H, MCHC 32.3, RDW 16.1, Plt Count 309, MPV 7.4, Neut % (Auto) 70.9, Lymph % (Auto) 17.2, [place] % (Auto) 7.7, Eos % (Auto) 3.6, Baso % (Auto) 0.6, Neut # (Auto) 6.2, Lymph # (Auto) 1.5, [place] # (Auto) 0.7, Eos # (Auto) 0.3, Baso # (Auto) 0.1 I & O for Last 24 hours: Intake & Output 09/11/18 09/12/18 09/13/18 09/14/18 11:59 11:59 11:59 11:59 Intake Total 1440 / 1440 205 / 2053 323 / 323 Output Total 850 / 850 1600 / 1600 1620 / 1620 1200 / 1200 Balance -850 / -850 -160 / -160 434 / 434 -877 / -877 Weight 224 lb 234 lb 1 oz 232 lb 5 oz 222 lb 1 oz - *Routine Neck Exam Present: supple. Absent: JVD, carotid bruit - *Routine Respiratory Exam Present: CTA bilaterally, rhonchi, wheezes, diminished air movement. Absent: accessory muscle use, rales - *Routine Cardiovascular Exam Present: RRR. Absent: murmur, gallop, rubs - *Routine Abdominal Exam Present: soft. Absent: tenderness, distended, guarding - *Routine Extremities Exam Present: edema. Absent: calf tenderness - *Routine Neurological Exam Present: alert, oriented X3, moving all extremities Assessment and Plan (1) Diabetes mellitus Current visit: Yes Status: Acute Category: Medical Code(s): E11.9 - Type 2 diabetes mellitus without complications (2) Renal insufficiency Current visit: No Status: Acute Category: Medical Code(s): N28.9 - D isorder of kidney and ureter, unspecified (3) Near syncope Current visit: No Status: Acute Category: Medical Code(s): R55 - Syncope and collapse (4) Obesity (BMI 30-39.9) Current visit: Yes Status: Acute Category: Medical Code(s): E66.9 - Obesity, unspecified (5) CHF (congestive heart failure) Current visit: Yes Status: Acute Category: Medical Code(s): I50.9 - Heart failure, unspecified (6) Hypertension Current visit: No Status: Chronic Qualifiers: Hypertension type: essential hypertension Qualified Code(s): I10 - Essential (primary) hypertension Category: Medical Code(s): I10 - Essential (primary) hypertension (7) Ischemic cardiomyopathy Current visit: No Status: Chronic Category: Medical Code(s): I25.5 - Ischemic cardiomyopathy (8) Mitral valve regurgitation Current visit: No Status: Chronic Qualifiers: Cardiac valve disease etiology: etiology unspecified Qualified Code(s): I34.0 - Nonrheumatic mitral (valve) insufficiency Category: Medical Code(s): I34.0 - Nonrheumatic mitral (valve) insufficiency - Assessment and plan all Dx Assessment and Plan for all problems:: 1. With recurrent CHF and history of ischemic Cardiomyopathy and uncontrolled HTN, will stop bisoprolol and restart coreg along with entresto with careful monitoring of renal status. 2. Continue IV lasix but increase to 40 mg BID. 3. Dietary non-compliance needs to be stressed for both DM and CHF. 4. Await echo report. 5. Further recommendations pending above.
--- NOTE | 2018-09-14 08:32 | Progress Note ---
Internal Medicine - PN: Subj *Date: 09/14/18 *Time: 08:30 Interval history: doing ok and was seen by card - meds adjusted Exam Vital signs and Labs for Last 24 Hours: Temp Pulse Resp BP Pulse Ox 97.8 F 67 20 131/80 96 09/14/18 08:07 09/14/18 08:07 09/14/18 08:07 09/14/18 08:07 09/14/18 08:07 Laboratory Results - last 24 hr 09/13/18 11:10: POC Glucose 302 H* 09/13/18 16:15: POC Glucose 192 H 09/13/18 19:51: POC Glucose 331 H* 09/14/18 06:25: POC Glucose 165 H 09/14/18 06:48: WBC 8.7, RBC 3.85 L, Hgb 12.1 L, Hct 37.6 L, MCV 97.7 H, MCH 31.5 H, MCHC 32.3, RDW 16.1, Plt Count 309, MPV 7.4, Neut % (Auto) 70.9, Lymph % (Auto) 17.2, [place] % (Auto) 7.7, Eos % (Auto) 3.6, Baso % (Auto) 0.6, Neut # (Auto) 6.2, Lymph # (Auto) 1.5, [place] # (Auto) 0.7, Eos # (Auto) 0.3, Baso # (Auto) 0.1 I & O for Last 24 hours: Intake & Output 09/11/18 09/12/18 09/13/18 09/14/18 11:59 11:59 11:59 11:59 Intake Total 1440 / 1440 2054 / 2054 743 / 743 Output Total 850 / 850 1600 / 1600 1620 / 1620 1700 / 1700 Balance -850 / -850 -160 / -160 434 / 434 -957 / -957 Weight 224 lb 234 lb 1 oz 232 lb 5 oz 222 lb 1 oz - Constitutional no acute distress, obese - *Routine HEENT Exam Head: Present: normocephalic Eye: Present: EOMI, PERRL ENT: Present: mucous membranes dry - *Routine Neck Exam Present: supple - *Routine Respiratory Exam Present: decreased breath sounds - *Routine Cardiovascular Exam Present: RRR, murmur, S4 - *Routine Abdominal Exam Present: soft - *Routine Extremities Exam Absent: calf tenderness - *Routine Skin Exam Present: intact - *Routine Neurological Exam Present: alert, oriented X3, CN II-XII intact - Routine Psychiatric Exam Present: normal affect Assessment and Plan (1) Diabetes mellitus Current visit: Yes Status: Acute Category: Medical Code(s): E11.9 - Type 2 diabetes mellitus without complications (2) Renal insufficiency Current visit: No Status: Acute Category: Medical Code(s): N28.9 - Disorder of kidney and ureter, unspecified (3) Near syncope Current visit: No Status: Acute Category: Medical Code(s): R55 - Syncope and collapse (4) Obesity (BMI 30-39.9) Current visit: Yes Status: Acute Category: Medical Code(s): E66.9 - Obesity, unspecified (5) CHF (congestive heart failure) Current visit: Yes Status: Acute Category: Medical Code(s): I50.9 - Heart failure, unspecified (6) Hypertension Current visit: No Status: Chronic Qualifiers: Hypertension type: essential hypertension Qualified Code(s): I10 - Essential (primary) hypertension Category: Medical Code(s): I10 - Essential (primary) hypertension (7) Ischemic cardiomyopathy Current visit: No Status: Chronic Category: Medical Code(s): I25.5 - Ischemic cardiomyopathy (8) Mitral valve regurgitation Current visit: No Status: Chronic Qualifiers: Cardiac valve disease etiology: etiology unspecified Qualified Code(s): I34.0 - Nonrheumatic mitral (valve) insufficiency Category: Medical Code(s): I34.0 - Nonrheumatic mitral (valve) insufficiency
--- NOTE | 2018-09-14 20:43 | Cardiology Report ---
PROCEDURE: 2-D echo Doppler INDICATIONS FOR THE TEST: Chest pain COPD Heart Murmur Tobacco Smoking Palpitations Fatigue Syncope Edema Hypertension+Diabetes Mellitus+ Rheumatic Fever SOB+AVILES Obesity+Hyperlipidemia Family History HD Additional History CAD, MILD , STENTS PATIENT INFORMATION HEIGHT: 68 WEIGHT:232 GENDER: Male B/P:179/88 2-D/M-MODE INTERPRETATION: 2-D MEASUREMENTS OBSERVED VALUES IN CMS Right Ventricular Dimension (RVDd) 3.9 Interventricular Septum (Thickness)(IVsd) 1.5 Left Ventricular Internal Dimensions(LVIDd) 5.9 Left Ventricular Posterior Wall (Thickness)(LVPWd) 1.3 Aortic Root 4.3 Aortic Cusp Separation 1.7 Left Atrial Dimensions (LAD) 4.6 2D 1. Technically very poor and difficult study, a repeat study with Definity contrast is recommended. 2. The left atrium is moderately enlarged, left ventricle is normal size, there is mild concentric left ventricular hypertrophy, visually estimated ejection fraction approximately 40%, there is marked hypokinesis involving the basal septum, inferobasal and posterolateral wall, a repeat study with Definity contrast is recommended. 3. The right atrium and right ventricle are mildly enlarged with normal contractility. 4. The aortic valve is thickened and calcified with restriction the leaflet mobility. 5. The mitral valve leaflets are minimally thickened. 6. The pulmonic valve is poorly visualized. 7. The tricuspid valve is grossly normal. DOPPLER INTERROGATION: The aortic outflow velocities not accurately recorded, the degree of aortic stenosis cannot be calculated from this study, there is mild aortic insufficiency. There is moderate to severe mitral regurgitation present. Tissue Doppler is inconclusive. There is mild tricuspid regurgitation noted. Tricuspid regurgitation jet velocity is inadequate for calculation of the right ventricular systolic pressure. CONCLUSION: 1. Moderately enlarged left atrium, normal left ventricular size, mild concentric left ventricular hypertrophy, visually estimated ejection fraction 40% with multiple segmental wall motion abnormality, repeat study with Definity contrast is recommended. Diastolic parameters are inconclusive. 2. Moderate to severe mitral regurgitation 3. Thickened and calcified aortic valve, the degree of aortic stenosis cannot be assessed from this study because of the poor Doppler signal, a repeat study with better Doppler is recommended. 4. Mild tricuspid regurgitation 5. No significant pericardial effusion noted.
[2018-09-15 07:33] LABS: Anion Gap 13.2 mEq/L (5-15); Calcium 8.1 mg/dL (8.5-10.1); Potassium 4.2 mmoL/L (3.5-5.1)
--- NOTE | 2018-09-15 08:43 | Progress Note ---
Subjective Date: 09/15/18 Time: 08:40 Principal diagnosis: CHF Interval history: 73 yo WM in bed in NAD. Breathing better. BP improved control. Exam Vital signs and Labs for Last 24 Hours: Temp Pulse Resp BP Pulse Ox 98.5 F 71 18 154/70 H 94 L 09/15/18 08:00 09/15/18 08:00 09/15/18 08:00 09/15/18 08:00 09/15/18 08:00 Laboratory Results - last 24 hr 09/14/18 11:29: POC Glucose 299 H 09/14/18 16:50: POC Glucose 435 H* 09/14/18 20:33: POC Glucose 363 H* 09/15/18 06:04: POC Glucose 222 H 09/15/18 06:55: Sodium 136, Potassium 4.2, Chloride 102, Carbon Dioxide 25, Anion Gap 13.2, BUN 34 H, Creatinine 1.58 H, Estimated Creat Clear 61, Estimated GFR 43 L, Est GFR ( Amer) 52 L, Glucose 249 H, Calcium 8.1 L I & O for Last 24 hours: Intake & Output 09/12/18 09/13/18 09/14/18 09/15/18 11:59 11:59 11:59 11:59 Intake Total 1440 / 1440 2054 / 2054 983 / 983 1260 / 1260 Output Total 1600 / 1600 1620 / 1620 2230 / 2230 2300 / 2300 Balance -160 / -160 434 / 434 -1247 / -1247 -1040 / -1040 Weight 234 lb 1 oz 232 lb 5 oz 222 lb 1 oz 224 lb 8 oz - *Routine Respiratory Exam Present: CTA bilaterally. Absent: accessory muscle use, rales, rhonchi, wheezes - *Routine Cardiovascular Exam Present: RRR. Absent: murmur, gallop, rubs - *Routine Extremities Exam Absent: edema, calf tenderness Progress Note: A&P (1) Diabetes mellitus Status: Acute Current Visit: Yes (2) Renal insufficiency Status: Acute Current Visit: No (3) Near syncope Status: Acute Current Visit: No (4) Obesity (BMI 30-39.9) Status: Acute Current Visit: Yes (5) CHF (congestive heart failure) Status: Acute Current Visit: Yes (6) Hypertension Status: Chronic Current Visit: No (7) Ischemic cardiomyopathy Status: Chronic Current Visit: No (8) Mitral valve regurgitation Status: Chronic Current Visit: No Assessment and Plan for All Diagnoses:: 1. Continue meds: coreg 25 mg BID entresto 24/26 mg BID plavix 75 mg daily lasix 40 mg BID atorvastatin 40 mg daily imdur 30 mg daily Xarelto 15 mg daily 2. Follow up in 1-2 wks
--- NOTE | 2018-09-15 09:48 | Discharge Summary ---
General - General Admission date:: 09/11/18 Discharge date: 09/15/18 HPI HPI: this wm who lives at [facility] was not feeling well and had sob with elevated bp - he has hx of iddm and heart disease - he was sent to ed and had eklevated bp and chest pain with clinical evid of chf - he was admitted for treatment and eval Hospital Course Hospital Course: echo:CONCLUSION: 1. Moderately enlarged left atrium, normal left ventricular size, mild concentric left ventricular hypertrophy, visually estimated ejection fraction 40% with multiple segmental wall motion abnormality, repeat study with Definity contrast is recommended. Diastolic parameters are inconclusive. 2. Moderate to severe mitral regurgitation 3. Thickened and calcified aortic valve, the degree of aortic stenosis cannot be assessed from this study because of the poor Doppler signal, a repeat study with better Doppler is recommended. 4. Mild tricuspid regurgitation 5. No significant pericardial effusion noted. chest x ray:IMPRESSION: Mild CHF head ct: IMPRESSION: Findings of age-appropriate cortical atrophy with old rather large ischemic infarct right posterior parietal temporal lobe and stable tiny lacunar infarct left basal ganglia and chronic white matter changes, no acute intracranial pathology noted, agree the [facility] report Consulted cardiology see note They recommend continuing Coreg 25 mg twice daily Entresto 24/26 mg twice daily Plavix 75 mg daily Lasix 40 mg twice daily Atorvastatin 40 mg daily Imdur 30 mg daily Xarelto 15 mg daily and follow-up in 1-2 weeks with cardiology. Objective Vital signs: Temp Pulse Resp BP Pulse Ox 98.5 F 71 18 154/70 H 94 L 09/15/18 08:00 09/15/18 08:00 09/15/18 08:00 09/15/18 08:00 09/15/18 08:00 - *Routine HEENT Exam Head: Present: normocephalic Eye: Present: PERRL ENT: Present: mucous membranes moist - *Routine Neck Exam Present: full ROM - *Routine Respiratory Exam Present: CTA bilaterally - *Routine Cardiovascular Exam Present: RRR - *Routine Abdominal Exam Present: soft, normoactive bowel sounds - *Routine Extremities Exam Present: full ROM - *Routine Skin Exam Present: dry Comments: Scattered scabbed areas on both extremities - *Routine Neurological Exam Present: alert, oriented X3 - Routine Psychiatric Exam Present: normal affect Results Labs on day of discharge: Labs from last 24 hours 11/09/15/18 09/14/18 06:55 06:04 20:33 Sodium 136 Potassium 4.2 Chloride 102 Carbon Dioxide 25 Anion Gap 13.2 BUN 34 H Creatinine 1.58 H Estimated Creat Clear 61 Estimated GFR 43 L Est GFR ( Amer) 52 L Glucose 249 H POC Glucose 222 H 363 H* Calcium 8.1 L 09/14/18 09/14/18 16:50 11:29 Sodium Potassium Chloride Carbon Dioxide Anion Gap BUN Creatinine Estimated Creat Clear Estimated GFR Est GFR ( Amer) Glucose POC Glucose 435 H* 299 H Calcium - Additional Comments Rounded with Dr. Vazquez all orders per George DS: Diagnosis - Discharge Diagnosis (1) Diabetes mellitus Status: Acute (2) Renal insufficiency Status: Acute (3) Near syncope Status: Acute (4) Obesity (BMI 30-39.9) Status: Acute (5) CHF (congestive heart failure) Status: Acute (6) Hypertension Status: Chronic (7) Ischemic cardiomyopathy Status: Chronic (8) Mitral valve regurgitation Status: Chronic Discharge Plan - Patient Discharge Instructions ACTIVITY: Continue current activity DIET: continue same diet Patient Instructions: DI for High Blood Pressure, DI for Chest Pain - Follow up Plan Disposition: Home, Self-Longterm Medications: Home Medications Medication Instructions Recorded Confirmed Type ascorbic acid (vitamin C) 500 mg 500 mg PO DAILY tab 10/30/17 09/11/18 History tablet atorvastatin 40 mg tablet 40 mg PO HS 10/30/17 09/11/18 History ferrous sulfate 325 mg (65 mg 325 mg PO BID tab 10/30/17 09/11/18 History iron) tablet hydrocodone 5 mg-acetaminophen 325 1 tab PO DAILYP PRN 10/30/17 09/11/18 History mg tablet levothyroxine 50 mcg tablet 50 mcg PO DAILY tab 10/30/17 09/11/18 History magnesium hydroxide 400 mg/5 mL 30 ml PO Q72H PRN 10/30/17 09/11/18 History oral suspension Duloxetine HCl [Cymbalta 30mg 30 mg PO DAILY 04/12/18 09/11/18 History capsule] Insulin NPH Hum/Reg Insulin Hm 40 unit SQ BID 04/12/18 09/11/18 History [Novolin 70-30 100 Unit/ml Vial] Loperamide HCl [Loperamide] 2 mg PO Q6HP PRN 04/12/18 09/11/18 History carBAMazepine [Tegretol 100mg 100 mg PO BID 08/23/18 09/11/18 History tablet] Bisoprolol Fumarate [Zebeta 5mg 10 mg PO BID 09/11/18 09/11/18 History tablet] Furosemide [Lasix 20mg tab] 20 mg PO DAILY 09/11/18 09/11/18 History Prescriptions/Medication Reconciliation: New Acetaminophen [Acetaminophen 325mg tab] 650 mg PO Q4HP PRN tablet PRN Reason: As Needed For Fever Or Pain Carvedilol [Coreg 25mg Tablet] 25 mg PO BID 30 Days #60 tab Furosemide [Lasix 40mg tab] 40 mg PO BID 30 Days #60 tab Sacubitril/Valsartan [Entresto 24/26mg Tablet] 1 each PO BID 30 Days #60 tab Continue hydrocodone 5 mg-acetaminophen 325 mg tablet 1 tab PO DAILYP PRN PRN Reason: PAIN magnesium hydroxide 400 mg/5 mL oral suspension 30 ml PO Q72H PRN PRN Reason: Constipation atorvastatin 40 mg tablet 40 mg PO HS ferrous sulfate 325 mg (65 mg iron) tablet 325 mg PO BID tab levothyroxine 50 mcg tablet 50 mcg PO DAILY tab ascorbic acid (vitamin C) 500 mg tablet 500 mg PO DAILY tab Duloxetine HCl [Cymbalta 30mg capsule] 30 mg PO DAILY Insulin NPH Hum/Reg Insulin Hm [Novolin 70-30 100 Unit/ml Vial] 40 unit SQ BID Clopidogrel Bisulfate [Plavix 75mg Tab] 75 mg PO DAILY 30 Days #30 tab Rivaroxaban [Xarelto 15mg tablet] 15 mg PO DAILY 30 Days #30 tab carBAMazepine [Tegretol 100mg tablet] 100 mg PO BID Isosorbide Mononitrate [Imdur 30mg ER tablet] 30 mg PO DAILY 30 Days #30 tab Discontinued Loperamide HCl [Loperamide] 2 mg PO Q6HP PRN PRN Reason: Diarrhea Furosemide [Lasix 20mg tab] 20 mg PO DAILY Bisoprolol Fumarate [Zebeta 5mg tablet] 10 mg PO BID
== END 2018-09-15 11:41 | disposition home or self-care (01) ==
LOC: 2ND 01:36 → ER 01:36 → 2ND 09:19
PROVIDERS: ADMIT Emergency Medicine; ATTEND Emergency Medicine

== ENCOUNTER → 2018-12-12 13:09 | Outpatient (REF) | payer MEDICARE, SELFPAY ==
[2018-12-12 13:19] LABS: Basophils % 0.5 % (0.1-2.0); Eosinophils # 0.2 K/mm3 (0.0-0.4); Eosinophils % 2.5 % (0.1-12.0); Hematocrit 31.2 % (42.0-52.0); Hemoglobin 10.4 g/dL (14.1-18.0); Lymphocytes # 1.4 K/mm3 (0.7-4.5); Mean Corpuscular HGB Conc 33.2 g/dL (31.8-35.4); Mean Corpuscular Hemoglobin 31.3 pg (27.0-31.2); Mean Corpuscular Volume 94.2 fl (80-94); Mean Platelet Volume 7.2 fl (7.4-10.4); Monocytes # 1.1 K/mm3 (0.1-1.0); Monocytes % 12.5 % (1.7-9.3); Neutrophils # 6.1 K/mm3 (1.8-7.8); Neutrophils % 68.6 % (37.0-80.0); Platelet Count 556 K/mm3 (142-424); Red Blood Count 3.32 M/mm3 (4.60-6.20); Red Cell Distribution Width 15.6 % (11.5-17.5); White Blood Count 8.8 K/mm3 (4.8-10.8)
[2018-12-12 13:32] LABS: Anion Gap 12.9 mEq/L (5-15); Blood Urea Nitrogen 32 mg/dL (7-18); Calcium 8.9 mg/dL (8.5-10.1); Carbon Dioxide 26 mmol/L (21.0-32.0); Chloride 100 mmol/L (98-107); Creatinine,Serum 1.93 mg/dL (0.70-1.30); Estimated Glomerular Filt Rate 34 ml/min (>60); GFR (African American) 42 ML/MIN (>60); Glucose 139 mg/dL (74-106); Potassium 4.9 mmoL/L (3.5-5.1); Sodium 134 mmol/L (136-145)
== END ==
LOC: LAB.DROPOF 13:09
PROVIDERS: Visit Provider Emergency Medicine
DX: D64.9 Anemia, unspecified (principal)
CPT/HCPCS: 80048; 85025

== ENCOUNTER → 2019-01-04 14:40 | Outpatient (POV) | payer MEDICARE, SELFPAY | PROVIDERS: Visit Provider Internal Medicine Nephrology | DX: Z00.00 Encounter for general adult medical examination without abnormal findings (principal) ==

== ENCOUNTER 2019-03-11 22:44 | Observation (INO) ==
[2019-03-11 23:01] LABS: ABG Base Excess -3.1 mmol/L (-2.4-2.3); ABG HCO3 21.5 mmhg (22.0-26.0); ABG Oxygen Saturation 90 % (90-100); ABG PCO2 34.2 mmhg (35.0-45.0); ABG PH 7.42 mmol/L (7.35-7.45); ABG PO2 61.5 mmhg (80-100); ABG TCO2 22.5 mmhg (23-27)
[2019-03-11 23:03] LABS: Allen's Test Acceptable
[2019-03-11 23:23] LABS: Basophils # 0.1 K/mm3 (0-0.2); Basophils % 0.6 % (0.1-2.0); Eosinophils # 0.4 K/mm3 (0.0-0.4); Eosinophils % 3.8 % (0.1-12.0); Hematocrit 34.4 % (42.0-52.0); Hemoglobin 10.8 g/dL (14.1-18.0); Lymphocytes # 1.1 K/mm3 (0.7-4.5); Lymphocytes % 10.6 % (10-50); Mean Corpuscular HGB Conc 31.5 g/dL (31.8-35.4); Mean Corpuscular Hemoglobin 31.3 pg (27.0-31.2); Mean Corpuscular Volume 99.2 fl (80-94); Mean Platelet Volume 7.5 fl (7.4-10.4); Monocytes # 0.7 K/mm3 (0.1-1.0); Monocytes % 7.4 % (1.7-9.3); Neutrophils # 7.8 K/mm3 (1.8-7.8); Neutrophils % 77.7 % (37.0-80.0); Platelet Count 403 K/mm3 (142-424); Red Blood Count 3.46 M/mm3 (4.60-6.20); Red Cell Distribution Width 15.2 % (11.5-17.5)
--- NOTE | 2019-03-11 23:32 | Emergency Department Note ---
ED Disposition Clinical Impression: Renal insufficiency, History of atrial fibrillation Acute exacerbation of CHF (congestive heart failure) Qualifiers: Heart failure type: unspecified Qualified Code(s): I50.9 - Heart failure, unspecified Diabetes mellitus Qualifiers: Diabetes mellitus type: type 2 Diabetes mellitus intermediate insulin use: unspecified intermediate insulin use status Diabetes mellitus complication status: with unspecified complications Qualified Code(s): E11.8 - Type 2 diabetes mellitus with unspecified complications Obesity Qualifiers: Obesity type: due to excess calories Obesity classification: adult class 1 (BMI 30 - 34.9) Serious obesity comorbidity presence: with serious comorbidity Body mass index: BMI 34.0-34.9 Qualified Code(s): E66.09 - Other obesity due to excess calories; Z68.34 - Body mass index (BMI) 34.0-34.9, adult CAD (coronary artery disease) Qualifiers: Coronary Disease-Associated Artery/Lesion type: unspecified vessel or lesion type [place] vs. transplanted heart: [place] heart Associated angina: without angina Qualified Code(s): I25.10 - Atherosclerotic heart disease of [place] coronary artery without angina pectoris Aortic stenosis Qualifiers: Cardiac valve disease etiology: etiology unspecified Qualified Code(s): I35.0 - Nonrheumatic aortic (valve) stenosis Disposition: Admitted as Observation Condition on Discharge: Fair Referrals: Dave Vazquez MD [Primary Care Provider] - - Critical Care Critical Care Time: No Attestation: On 03/11/19, the high probability of a clinically significant, sudden or life threatening deterioration of the following system(s) required my full and direct attention, intervention and personal management. The time I documented below is in addition to time spent performing reported procedures but includes the following listed in this critical care notation. Medical Decision Making - Medical Records Medical records reviewed: Yes: I reviewed the patient's medical records. - Yogesh Inquiry Pt receiving controlled substance: No Vital Signs: 03/11/19 22:45 Temperature 98.6 F Temperature Source Oral Pulse Rate [Right] 123 H Respiratory Rate 20 Blood Pressure [Right Arm] 152/91 H Blood Pressure Mean [Right Arm] 111 Blood Pressure Source [Right Arm] Automatic Cuff Blood Pressure Position [Right Arm] Supine 02 Sat by Pulse Oximetry 89 L Oxygen Delivery Method Nasal Cannula Oxygen Flow Rate (LPM) 6 - Lab Data Lab results reviewed: Yes: I reviewed the patient's lab results. Lab Results 03/11/19 22:53: O2 % 5 lpm nc, 40%, ABG pH 7.42, ABG pCO2 34.2 L, ABG pO2 61.5 L , ABG HCO3 21.5 L, ABG Total CO2 22.5 L, ABG O2 Saturation 90, ABG Base Excess - 3.1 L, Cameron Test Acceptable 03/11/19 23:05: WBC 10.0, RBC 3.46 L, Hgb 10.8 L, Hct 34.4 L, MCV 99.2 H, MCH 31.3 H, MCHC 31.5 L, RDW 15.2, Plt Count 403, MPV 7.5, Neut % (Auto) 77.7, Lymph % (Auto) 10.6, [place] % (Auto) 7.4, Eos % (Auto) 3.8, Baso % (Auto) 0.6, Neut # (Auto) 7.8, Lymph # (Auto) 1.1, [place] # (Auto) 0.7, Eos # (Auto) 0.4, Baso # (Auto) 0.1 03/11/19 23:05: Sodium 140, Potassium 4.8, Chloride 105, Carbon Dioxide 24, Anion Gap 15.8 H, BUN 22 H, Creatinine 1.59 H, Estimated Creat Clear 61, Estimated GFR 43 L, Est GFR ( Amer) 52 L, Glucose 194 H, Calcium 8.6, Total Bilirubin 0.4, AST 20, ALT 34, Alkaline Phosphatase 164 H, Troponin I 0.05, Total Protein 7.3, Albumin 2.7 L, Globulin 4.6 H, Albumin/Globulin Ratio 0.6 L 03/11/19 23:05: B-Natriuretic Peptide 909 H 03/11/19 23:05: Lactate 1.6 Result diagrams: 03/11/19 23:05 03/11/19 23:05 Orders (Tests/Meds): ORDERS Category Date Time Status Chest XR -- portable [XR chest portable] Stat Exams 03/11/19 23:12 Ordered XR chest 2V Stat Exams 03/11/19 22:54 Stop Req Blood Culture Stat Micro 03/11/19 23:05 Received ECG Request by /Jake Stat Y 03/11/19 22:53 Ordered - Radiology Data #1 Image(s): Chest Image Reviewed: Yes I reviewed the patient's radiology image Preliminary Findings: Abnormal - ECG Data Tracing #1 Arrhythmias present: accelerated junctional rhythm Ischemic changes: non-specific ST-T wave changes ECG compared to prior tracings: there are no significant changes Resp/SOB HPI - General Chief Complaint: Shortness of Breath/Dyspnea Stated Complaint: SOB Time Seen by Provider: 03/11/19 23:00 Mode of Arrival: EMS Source of Information: Patient, EMS, Medical Record Limitations: No Limitations Description of Symptoms (Recalled from ER Triage Doc. by RN): SOB with headache. - History of Present Illness wm sent from [facility] with progressive sob - no fever or prod cough and no chest pain MD Complaint: shortness of breath Onset (ago): day(s) Severity: moderate Known history of: congestive heart failure Associated symptoms: denies other symptoms Treatment prior to arrival: oxygen, bronchodilator - Related Data Home oxygen amount: 2 liters Home Medications Medication Instructions Recorded Confirmed ascorbic acid (vitamin C) 500 mg 500 mg PO DAILY tab 10/30/17 03/11/19 tablet atorvastatin 40 mg tablet 40 mg PO HS 10/30/17 03/11/19 ferrous sulfate 325 mg (65 mg 325 mg PO BID tab 10/30/17 03/11/19 iron) tablet levothyroxine 50 mcg tablet 50 mcg PO DAILY tab 10/30/17 03/11/19 Duloxetine HCl [Cymbalta 30mg 30 mg PO DAILY 04/12/18 03/11/19 capsule] carBAMazepine [Tegretol 100mg 100 mg PO BID 08/23/18 03/11/19 tablet] Carvedilol [Coreg 25mg Tablet] 25 mg PO BID 10/09/18 03/11/19 Furosemide [Lasix 40mg tab] 40 mg PO BID 10/09/18 03/11/19 Sacubitril/Valsartan [Entresto 1 each PO BID 10/09/18 03/11/19 24/26mg Tablet] Acetaminophen [Acetaminophen 325mg 500 mg PO Q4HP PRN 11/23/18 03/11/19 tab] Amlodipine Besylate [Norvasc 10mg 10 mg PO DAILY 11/23/18 03/11/19 tablet] Docusate Sodium [Colace 250mg 250 mg PO DIRECTED 11/23/18 03/11/19 capsule] Fluticasone Propionate [Flonase 1 spr NS DAILY 11/23/18 03/11/19 50mcg nasal spray 16gm] Insulin Glargine,Hum.rec.anlog 58 unit SQ HS 11/23/18 03/11/19 [Lantus Insulin 100units/mL 10mL vial] Insulin Lispro [Humalog Kwikpen 26 unit SQ PC 11/23/18 03/11/19 U-100] Isosorbide Mononitrate [Imdur 30mg 30 mg PO DAILY 11/23/18 03/11/19 ER tablet] Oxycodone HCl/Acetaminophen 2 each PO Q4HP PRN 11/23/18 03/11/19 [Endocet 5-325 Tablet] Trazodone HCl 100 mg PO DAILY 03/11/19 03/11/19 Valsartan 80 mg PO DAILY 03/11/19 03/11/19 Allergies Allergy/AdvReac Type Severity Reaction Status Date / Time No Known Allergies Allergy Verified 03/11/19 22:51 [facility] History - Hepatitis A Screen Drug use history?: No High risk sexual behaviors?: No History of sexually transmitted infection?: No Currently employed?: No Childcare worker?: No Do you have indoor plumbing?: Yes Do you have electricity?: Yes Attestation statement:: This patient has been screened for Hepatitis A risk factors. I have reviewed the patient's past medical history: Yes Medical History: Reports:: Cancer, Cardiomyopathy, Coronary Artery Disease, Diabetes Mellitus Type 2, Hypertension, Internal Pacemaker, Myocardial Infarction Denies:: Diabetes Mellitus Type 1, MRSA Other Medical History: Reports: Anemia, Hypothyroidism Laterality Cases: Left: Total Hip Replacement, Bilateral: Tonsillectomy Other Surgeries: Yes: Colonoscopy, Pacemaker, Other Amputation: No Fractures: Yes - Social History Educational Level: Completed High School Smoking Status: Former smoker Tobacco Type: cigarettes # Packs/Day (cigarettes): 2 #Yrs smoked (if former smoker): 25 Smoking End Date: unknown Alcohol Intake: never Alcohol Intake Frequency:: other Substance Use Type: denies use Occupational Status: unemployed, disabled Housing: assisted living facility Household Members: spouse - Psychiatric History Expresses thoughts of harming self/others: None Suicide Plan Description: No Plan Family Hx:: Diabetes, Stroke ROS Obtained: Yes All systems reviewed & no additional complaints - Constitutional Constitutional: Denies fever(s) - Eyes Eyes: Denies change in vision - ENT Ears, Nose, Mouth, and Throat: Denies sore throat - Cardiovascular Cardiovascular: Denies chest pain, Reports dyspnea - Respiratory Respiratory: No cough - Gastrointestinal Gastrointestingal: Denies: abdominal pain - Genitourinary Male Genitourinary: Denies hematuria - Musculoskeletal Musculoskeletal: Denies joint swelling - Integumentary/Breasts Skin/Breast: Denies rash - Neurologic Neurologic: Denies seizure-like activity Physical Exam - General General appearance: alert, obese - Head Head exam: normocephalic - Eye Eye exam: Present: PERRL, EOMI - ENT ENT exam: Present: mucous membranes dry - Neck Neck exam: Present: trachea midline - Respiratory Respiratory exam: Present: other (dec bs bilat ). Absent: respiratory distress - Cardiovascular Cardiovascular exam: Present: regular rate, systolic murmur, +S4 - Abdominal Exam Abdominal exam: Present: soft - Extremities Exam Extremities exam: Present: pedal edema. Absent: calf tenderness - Neurological Exam Neurological exam: Present: alert, CN II-XII intact - Psychiatric Psychiatric exam: Present: normal affect - Skin Skin exam: Absent: rash
[2019-03-11 23:41] LABS: Albumin Level 2.7 gm/dL (3.4-5.0); Albumin/Globulin Ratio 0.6 (1.1-1.8); Anion Gap 15.8 mEq/L (5-15); Bilirubin,Total 0.4 mg/dL (0.2-1.0); Calcium 8.6 mg/dL (8.5-10.1); Globulin 4.6 gm/dl (1.3-3.2); Potassium 4.8 mmoL/L (3.5-5.1); Total Protein,Serum 7.3 gm/dL (6.4-8.2)
[2019-03-12 06:33] LABS: Basophils % 0.3 % (0.1-2.0); Eosinophils # 0.1 K/mm3 (0.0-0.4); Eosinophils % 0.5 % (0.1-12.0); Hematocrit 34.7 % (42.0-52.0); Lymphocytes # 0.4 K/mm3 (0.7-4.5); Lymphocytes % 4.9 % (10-50); Mean Corpuscular HGB Conc 31.7 g/dL (31.8-35.4); Mean Corpuscular Hemoglobin 31.4 pg (27.0-31.2); Mean Corpuscular Volume 99.2 fl (80-94); Mean Platelet Volume 7.4 fl (7.4-10.4); Monocytes # 0.2 K/mm3 (0.1-1.0); Monocytes % 1.8 % (1.7-9.3); Neutrophils # 7.9 K/mm3 (1.8-7.8); Neutrophils % 92.5 % (37.0-80.0); Platelet Count 350 K/mm3 (142-424); Red Blood Count 3.49 M/mm3 (4.60-6.20); Red Cell Distribution Width 15.2 % (11.5-17.5); White Blood Count 8.5 K/mm3 (4.8-10.8)
[2019-03-12 06:47] LABS: Anion Gap 14.4 mEq/L (5-15); Calcium 8.6 mg/dL (8.5-10.1); Chol/HDL Ratio 4.2 (1-3.5); Potassium 5.4 mmoL/L (3.5-5.1)
--- NOTE | 2019-03-12 07:09 | Consult Report ---
History of Present Illness Consult date: 03/12/19 Requesting physician: Dave Vaqzuez Consult reason: shortness of breath Chief complaint: CHF Additional Medical History:: 1. DM, treated since 2015 2. HTN A. CHF B. Echo, 12/2017, LVEF 45% with distal septum and apical hypokinesis. Mild AI, MR, TR. C. Echo, 04/2018, LVEF 50% with concentric LVH, hypokinesis of inferolateral wall, mild , Moderate MR and mild TR D. Echo, 08/2018, LVEF 40% with moderate to severe MR E. Echo, 11/2018, extremely poor, very difficult study, LVEF 40-45% with hypokinesis in the inferobasal wall. Left atrial size 3.1 cm moderate to severe mitral regurgitation seen. Mild MR and TR. Inadequate for calculation of the right ventricular systolic pressure. 3. Hyperlipidemia, on statin 4. Remote tobacco use 5. 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 Fractured hip, 2016 status post repair A. Left femur fracture after fall, 11/2018 7. Hypothyroidism, on supplement 8. CAD A. NSTEMI, 09/2017 B. Cardiac cath, 09/2017, mild CAD of left main, LAD and RCA with dominant circumflex with mid vessel occlusion. BHARTI to circumflex placed. LVEF 40% with LVEDP 50 mm Hg C. Cardiac cath, 06/2018, 1. The left main artery normal 2. The left anterior descending artery has proximal mild luminal irregularities nothing greater than 10% 3. The circumflex artery is a large dominant vessel with mild 10% luminal irregularities 4. The right coronary artery small vestigial normal 5. The GRIDER ventriculogram reveals normal 65% 6. The left ventricular end-diastolic pressure 20 mmHg 9. History of A. fib, 08/2018, converted with IV medications A. Xarelto therapy History of present illness: 74-year-old white male resident of [facility] care facility presented to the ER for evaluation of shortness of breath. Patient relates a several day history of increasing shortness of breath but was sudden worsening last evening. He does relate eating "what they bring me" which includes a lot of salty items. He denies any chest pain, pressure, palpitations or tightness. He has limited activity since his left femur fracture in November of this year. He is participating in restorative and physical therapy. ER work-up included BNP over 900 with mild hyperkalemia, mild renal insufficiency and normal troponins. EKG appears to be atrial fibrillation with mild tachycardic rate. Patient has conversational dyspnea with audible rales. [facility] History Medical History: Reports:: Arrhythmia, Atrial Fibrillation, Cancer (SKIN CANCER), Cardiomyopathy, Congestive Heart Failure, Coronary Artery Disease, Diabetes Mellitus Type 2, Hyperlipidemia, Hypertension, Internal Pacemaker, Myocardial Infarction, Peripheral Vascular Disease Denies:: Diabetes Mellitus Type 1, MRSA *Have you ever received a pneumonia vaccine?: Yes *Have you received a flu vaccine this season?: Yes Other Medical History: Reports: Anemia, Hypothyroidism Laterality Cases: Left: Total Hip Replacement, Other, Bilateral: Tonsillectomy Other Surgeries: Yes: Cardiac Catheterization, Colonoscopy, Coronary Stent, Pacemaker, Other Amputation: No Fractures: Yes - *Social History Educational Level: Attended College Smoking Status: Former smoker Tobacco Type: cigarettes # Packs/Day (cigarettes): 2 #Yrs smoked (if former smoker): 25 Smoking End Date: unknown Alcohol Intake: never Alcohol Intake Frequency:: other Substance Use Type: denies use *Occupational Status:: unemployed, disabled Housing: long term Household Members: none *Travel in the last 8 weeks: None - Psychiatric History Expresses thoughts of harming self/others: None Suicide Plan Description: No Plan Family Hx:: Diabetes Meds Home Medications Medication Instructions Recorded Confirmed Type ascorbic acid (vitamin C) 500 mg 500 mg PO DAILY tab 10/30/17 03/11/19 History tablet atorvastatin 40 mg tablet 40 mg PO HS 10/30/17 03/11/19 History ferrous sulfate 325 mg (65 mg 325 mg PO BID tab 10/30/17 03/11/19 History iron) tablet levothyroxine 50 mcg tablet 50 mcg PO DAILY tab 10/30/17 03/11/19 History Duloxetine HCl [Cymbalta 30mg 30 mg PO DAILY 04/12/18 03/11/19 History capsule] carBAMazepine [Tegretol 100mg 100 mg PO BID 08/23/18 03/11/19 History tablet] Carvedilol [Coreg 25mg Tablet] 25 mg PO BID 10/09/18 03/11/19 History Furosemide [Lasix 40mg tab] 40 mg PO BID 10/09/18 03/11/19 History Sacubitril/Valsartan [Entresto 1 each PO BID 10/09/18 03/11/19 History 24/26mg Tablet] Acetaminophen [Acetaminophen 325mg 500 mg PO Q4HP PRN 11/23/18 03/11/19 History tab] Amlodipine Besylate [Norvasc 10mg 10 mg PO DAILY 11/23/18 03/11/19 History tablet] Docusate Sodium [Colace 250mg 250 mg PO DIRECTED 11/23/18 03/11/19 History capsule] Fluticasone Propionate [Flonase 1 spr NS DAILY 11/23/18 03/11/19 History 50mcg nasal spray 16gm] Insulin Glargine,Hum.rec.anlog 58 unit SQ HS 11/23/18 03/11/19 History [Lantus Insulin 100units/mL 10mL vial] Insulin Lispro [Humalog Kwikpen 26 unit SQ PC 11/23/18 03/11/19 History U-100] Isosorbide Mononitrate [Imdur 30mg 30 mg PO DAILY 11/23/18 03/11/19 History ER tablet] Oxycodone HCl/Acetaminophen 2 each PO Q4HP PRN 11/23/18 03/11/19 History [Endocet 5-325 Tablet] Trazodone HCl 100 mg PO DAILY 03/11/19 03/11/19 History Allergies Allergy/AdvReac Type Severity Reaction Status Date / Time No Known Allergies Allergy Verified 03/11/19 22:51 Review of Systems - *Cardiovascular Reports shortness of breath, Reports shortness of breath with activity, Reports leg swelling, Denies chest pain - *Respiratory Reports cough, Reports shortness of breath, Reports shortness of breath with activity - *Gastrointestinal Denies loose stools, Denies nausea, Denies vomiting - *Genitourinary Denies blood in urine - *Musculoskeletal Reports joint pain, Reports back pain - *Neurologic Denies seizure-like activity, Denies fainting Exam Vital signs and Labs for Last 24 Hours: Temp Pulse Resp BP Pulse Ox 98.0 F 106 H 20 147/84 H 98 03/12/19 04:00 03/12/19 04:00 03/12/19 04:00 03/12/19 04:00 03/12/19 04:00 Laboratory Results - last 24 hr 03/11/19 22:53: O2 % 5 lpm nc, 40%, ABG pH 7.42, ABG pCO2 34.2 L, ABG pO2 61.5 L , ABG HCO3 21.5 L, ABG Total CO2 22.5 L, ABG O2 Saturation 90, ABG Base Excess - 3.1 L, Cameron Test Acceptable 03/11/19 23:05: WBC 10.0, RBC 3.46 L, Hgb 10.8 L, Hct 34.4 L, MCV 99.2 H, MCH 31.3 H, MCHC 31.5 L, RDW 15.2, Plt Count 403, MPV 7.5, Neut % (Auto) 77.7, Lymph % (Auto) 10.6, [place] % (Auto) 7.4, Eos % (Auto) 3.8, Baso % (Auto) 0.6, Neut # (Auto) 7.8, Lymph # (Auto) 1.1, [place] # (Auto) 0.7, Eos # (Auto) 0.4, Baso # (Auto) 0.1 03/11/19 23:05: Sodium 140, Potassium 4.8, Chloride 105, Carbon Dioxide 24, Anion Gap 15.8 H, BUN 22 H, Creatinine 1.59 H, Estimated Creat Clear 61, Estimated GFR 43 L, Est GFR ( Amer) 52 L, Glucose 194 H, Calcium 8.6, Total Bilirubin 0.4, AST 20, ALT 34, Alkaline Phosphatase 164 H, Troponin I 0.05, Total Protein 7.3, Albumin 2.7 L, Globulin 4.6 H, Albumin/Globulin Ratio 0.6 L 03/11/19 23:05: B-Natriuretic Peptide 909 H 03/11/19 23:05: Lactate 1.6 03/12/19 03:55: Troponin I 0.04 03/12/19 05:42: WBC 8.5, RBC 3.49 L, Hgb 11.0 L, Hct 34.7 L, MCV 99.2 H, MCH 31.4 H, MCHC 31.7 L, RDW 15.2, Plt Count 350, MPV 7.4, Neut % (Auto) 92.5 H, Lymph % (Auto) 4.9 L, [place] % (Auto) 1.8, Eos % (Auto) 0.5, Baso % (Auto) 0.3, Neut # (Auto) 7.9 H, Lymph # (Auto) 0.4 L, [place] # (Auto) 0.2, Eos # (Auto) 0.1, Baso # (Auto) 0.0 03/12/19 05:42: Sodium 138, Potassium 5.4 H, Chloride 106, Carbon Dioxide 23, Anion Gap 14.4, BUN 24 H, Creatinine 1.56 H, Estimated Creat Clear 62, Estimated GFR 44 L, Est GFR ( Amer) 53 L, Glucose 239 H D, Calcium 8.6, Magnesium 2.1, Troponin I 0.04, Triglycerides 91, Cholesterol 126 L, LDL Cholesterol 78, VLDL Cholesterol 18, HDL Cholesterol 30, Cholesterol/HDL Ratio 4.2 H 03/12/19 05:56: POC Glucose 260 H I & O for Last 24 hours: Intake & Output 03/09/19 03/10/19 03/11/19 03/12/19 11:59 11:59 11:59 11:59 Output Total 650 / 650 Balance -650 / -650 Weight 230 lb 6 oz - *Routine HEENT Exam Head: Present: normocephalic Eye: Present: EOMI, PERRL ENT: Present: mucous membranes moist - *Routine Respiratory Exam Present: rales, rhonchi, diminished air movement. Absent: accessory muscle use, wheezes - *Routine Cardiovascular Exam Present: tachycardia, irregularly irregular. Absent: murmur, gallop, rubs - *Routine Abdominal Exam Present: soft. Absent: tenderness, distended, guarding - *Routine Extremities Exam Present: edema. 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 transplanted heart: [place] heart Associated angina: without angina Qualified Code(s): I25.10 - Atherosclerotic heart disease of [place] coronary artery without angina pectoris Category: Medical Code(s): I25.10 - Atherosclerotic heart disease of [place] coronary artery without angina pectoris (4) History of atrial fibrillation Current visit: Yes Status: Chronic Category: Medical Code(s): Z86.79 - Personal history of other diseases of the circulatory system (5) Obesity Current visit: Yes Status: Chronic Qualifiers: Obesity type: due to excess calories Obesity classification: adult class 1 (BMI 30 - 34.9) Serious obesity comorbidity presence: with serious comorbidity Body mass index: BMI 34.0-34.9 Qualified Code(s): E66.09 - Other obesity due to excess calories; Z68.34 - Body mass index (BMI) 34.0-34.9, adult Category: Medical Code(s): E66.9 - Obesity, unspecified (6) Renal insufficiency Current visit: Yes Status: Chronic Category: Medical Code(s): N28.9 - Disorder of kidney and ureter, unspecified (7) Diabetes mellitus type 2 in obese Current visit: No Status: Chronic Category: Medical Code(s): E11.69 - Type 2 diabetes mellitus with other specified complication; E66.9 - Obesity, unspecified (8) Mitral valve regurgitation Current visit: No Status: Chronic Qualifiers: Cardiac valve disease etiology: etiology unspecified Qualified Code(s): I34.0 - Nonrheumatic mitral (valve) insufficiency Category: Medical Code(s): I34.0 - Nonrheumatic mitral (valve) insufficiency - Assessment and plan all Dx Assessment and Plan for all problems:: 1. Acute on chronic congestive heart failure secondary to dietary noncompliance and recurrence of atrial fibrillation. Resume/continue Xarelto therapy and switch to IV diuretic therapy. 2. Discontinue valsartan as patient is already on Entresto. Will increase Entresto to 49/51 mg BID. 3. Tachycardia related to pulmonary issues, should improve with improvement in respiratory status. Consider increasing Coreg as needed. 4. We will hold off on repeating echocardiogram at this time. 5. Due to cardiomyopathy, will discontinue norvasc. Increase coreg to 50 mg BID if needed for BP/HR control.
--- NOTE | 2019-03-12 07:57 | Pharmacy Consult Notes ---
[facility] Pharmacy VTE Monitoring - Patient Demographics Admission date: 03/11/19 Report Date: 03/12/19 Time: 07:57 Allergies/Adverse Reactions: Patient Allergies No Known Allergies Allergy (Verified 03/11/19 22:51) Height: 1.73 m Weight: 104.496 kg Patient Problems: Current Active Problems (Updated 03/12/19 @ 07:11 by JUAN CARLOS Boles) Acute exacerbation of CHF (congestive heart failure) (Acute) Diabetes mellitus (Acute) History of atrial fibrillation (Chronic) Aortic stenosis (Chronic) Obesity (Chronic) Renal insufficiency (Chronic) CAD (coronary artery disease) (Chronic) - VTE Risk Labs: VTE Related Lab Results Hgb 11.0 g/dL (14.1-18.0) L 03/12/19 05:42 Hct 34.7 % (42.0-52.0) L 03/12/19 05:42 Plt Count 350 K/mm3 (142-424) 03/12/19 05:42 BUN 24 mg/dL (7-18) H 03/12/19 05:42 Creatinine 1.56 mg/dL (0.70-1.30) H 03/12/19 05:42 Estimated Creat Clear 62 mL/min (50-200) 03/12/19 05:42 Was VTE Risk Assessment Performed: Yes VTE Score: 7 VTE Risk Level: Moderate Risk Clinical Trial Participant: No - Prophylaxis VTE Prophylaxis Ordered?: Yes Types of VTE Prophylaxis: TEDS Knee High Location of Applied Device: Bilateral Lower Extremeties
[2019-03-12 08:11] LABS: Lymphocytes % 4 % (10-50); Monocytes % 2 % (2-9); Neutrophils % 93 % (42-76); Total Cells Counted 100
--- NOTE | 2019-03-12 08:28 | History & Physical Report ---
*Admission Date: 03/11/19 *Chief complaint: soa *History of present illness: 74-year-old male resident of [facility] presented to the ER for evaluation of shortness of breath. Patient states a several day history of increasing shortness of breath but was sudden worsening last evening. He denies any chest pain, pressure, palpitations or tightness. He has limited activity since his left femur fracture in November of this year. He is participating in restorative and physical therapy.ER work-up included BNP over 900 with mild hyperkalemia, mild renal insufficiency and normal troponins. EKG appears to be atrial fibrillation with mild tachycardic rate.-per muriel rogers [facility] History I have reviewed the patient's past medical history: Yes Medical History: Reports:: Arrhythmia, Atrial Fibrillation, Cancer (SKIN CANCER), Cardiomyopathy, Congestive Heart Failure, Coronary Artery Disease, Diabetes Mellitus Type 2, Hyperlipidemia, Hypertension, Internal Pacemaker, Myocardial Infarction, Peripheral Vascular Disease Denies:: Diabetes Mellitus Type 1, MRSA *Have you ever received a pneumonia vaccine?: Yes *Have you received a flu vaccine this season?: Yes Other Medical History: Reports: Anemia, Hypothyroidism Laterality Cases: Left: Total Hip Replacement, Other, Bilateral: Tonsillectomy Other Surgeries: Yes: Cardiac Catheterization, Colonoscopy, Coronary Stent, Pacemaker, Other Amputation: No Fractures: Yes - *Social History Educational Level: Attended College Smoking Status: Former smoker Tobacco Type: cigarettes # Packs/Day (cigarettes): 2 #Yrs smoked (if former smoker): 25 Smoking End Date: unknown Alcohol Intake: never Alcohol Intake Frequency:: other Substance Use Type: denies use *Occupational Status:: unemployed, disabled Housing: prison Household Members: none *Travel in the last 8 weeks: None - Psychiatric History Expresses thoughts of harming self/others: None Suicide Plan Description: No Plan Family Hx:: Diabetes Review of Systems - Review of Systems Review of systems:: pertinent systems reviewed and negative unless documented below - Constitutional Reports malaise, Reports weight gain, Denies chills - Eyes Denies change in vision - ENT Denies change in voice, Denies sore throat - *Cardiovascular Reports shortness of breath - *Respiratory Reports shortness of breath, Reports shortness of breath with activity - *Gastrointestinal Denies nausea, Denies vomiting - *Genitourinary Denies urinary urgency - *Musculoskeletal Denies decreased muscle mass - Integumentary/Breasts Denies rash - *Neurologic Denies dizziness, Denies seizure-like activity, Denies fainting - Psychiatric Denies anxiety - Endocrine Denies flushing - Hematologic/Lymphatic Denies enlarged lymph nodes - Allergic/Immunologic Denies lip swelling Meds Home Medications Medication Instructions Recorded Confirmed Type ascorbic acid (vitamin C) 500 mg 500 mg PO DAILY tab 10/30/17 03/11/19 History tablet atorvastatin 40 mg tablet 40 mg PO HS 10/30/17 03/11/19 History ferrous sulfate 325 mg (65 mg 325 mg PO BID tab 10/30/17 03/11/19 History iron) tablet levothyroxine 50 mcg tablet 50 mcg PO DAILY tab 10/30/17 03/11/19 History Duloxetine HCl [Cymbalta 30mg 30 mg PO DAILY 04/12/18 03/11/19 History capsule] carBAMazepine [Tegretol 100mg 100 mg PO BID 08/23/18 03/11/19 History tablet] Carvedilol [Coreg 25mg Tablet] 25 mg PO BID 10/09/18 03/11/19 History Furosemide [Lasix 40mg tab] 40 mg PO BID 10/09/18 03/11/19 History Sacubitril/Valsartan [Entresto 1 each PO BID 10/09/18 03/11/19 History 24/26mg Tablet] Acetaminophen [Acetaminophen 325mg 500 mg PO Q4HP PRN 11/23/18 03/11/19 History tab] Amlodipine Besylate [Norvasc 10mg 10 mg PO DAILY 11/23/18 03/11/19 History tablet] Docusate Sodium [Colace 250mg 250 mg PO DIRECTED 11/23/18 03/11/19 History capsule] Fluticasone Propionate [Flonase 1 spr NS DAILY 11/23/18 03/11/19 History 50mcg nasal spray 16gm] Insulin Glargine,Hum.rec.anlog 58 unit SQ HS 11/23/18 03/11/19 History [Lantus Insulin 100units/mL 10mL vial] Insulin Lispro [Humalog Kwikpen 26 unit SQ PC 11/23/18 03/11/19 History U-100] Isosorbide Mononitrate [Imdur 30mg 30 mg PO DAILY 11/23/18 03/11/19 History ER tablet] Oxycodone HCl/Acetaminophen 2 each PO Q4HP PRN 11/23/18 03/11/19 History [Endocet 5-325 Tablet] Trazodone HCl 100 mg PO DAILY 03/11/19 03/11/19 History Allergies Allergy/AdvReac Type Severity Reaction Status Date / Time No Known Allergies Allergy Verified 03/11/19 22:51 Exam Vital signs and Labs for Last 24 Hours: Temp Pulse Resp BP Pulse Ox 97.9 F 112 H 22 147/81 H 94 L 03/12/19 08:00 03/12/19 08:05 03/12/19 08:00 03/12/19 08:00 03/12/19 08:05 Laboratory Results - last 24 hr 03/11/19 22:53: O2 % 5 lpm nc, 40%, ABG pH 7.42, ABG pCO2 34.2 L, ABG pO2 61.5 L , ABG HCO3 21.5 L, ABG Total CO2 22.5 L, ABG O2 Saturation 90, ABG Base Excess - 3.1 L, Cameron Test Acceptable 03/11/19 23:05: WBC 10.0, RBC 3.46 L, Hgb 10.8 L, Hct 34.4 L, MCV 99.2 H, MCH 31.3 H, MCHC 31.5 L, RDW 15.2, Plt Count 403, MPV 7.5, Neut % (Auto) 77.7, Lymph % (Auto) 10.6, [place] % (Auto) 7.4, Eos % (Auto) 3.8, Baso % (Auto) 0.6, Neut # (Auto) 7.8, Lymph # (Auto) 1.1, [place] # (Auto) 0.7, Eos # (Auto) 0.4, Baso # (Auto) 0.1 03/11/19 23:05: Sodium 140, Potassium 4.8, Chloride 105, Carbon Dioxide 24, Anion Gap 15.8 H, BUN 22 H, Creatinine 1.59 H, Estimated Creat Clear 61, Estimat ed GFR 43 L, Est GFR ( Amer) 52 L, Glucose 194 H, Calcium 8.6, Total Bilirubin 0.4, AST 20, ALT 34, Alkaline Phosphatase 164 H, Troponin I 0.05, Total Protein 7.3, Albumin 2.7 L, Globulin 4.6 H, Albumin/Globulin Ratio 0.6 L 03/11/19 23:05: B-Natriuretic Peptide 909 H 03/11/19 23:05: Lactate 1.6 03/12/19 03:55: Troponin I 0.04 03/12/19 05:42: WBC 8.5, RBC 3.49 L, Hgb 11.0 L, Hct 34.7 L, MCV 99.2 H, MCH 31.4 H, MCHC 31.7 L, RDW 15.2, Plt Count 350, MPV 7.4, Neut % (Auto) 92.5 H, Lymph % (Auto) 4.9 L, [place] % (Auto) 1.8, Eos % (Auto) 0.5, Baso % (Auto) 0.3, Neut # (Auto) 7.9 H, Lymph # (Auto) 0.4 L, [place] # (Auto) 0.2, Eos # (Auto) 0.1, Baso # (Auto) 0.0, Total Counted 100, Neutrophils % (Manual) 93 H, Band Neutrophils % 1.0, Lymphocytes % (Manual) 4 L, Monocytes % (Manual) 2, Platelet Estimate Normal 03/12/19 05:42: Sodium 138, Potassium 5.4 H, Chloride 106, Carbon Dioxide 23, Anion Gap 14.4, BUN 24 H, Creatinine 1.56 H, Estimated Creat Clear 62, Estimated GFR 44 L, Est GFR ( Amer) 53 L, Glucose 239 H D, Calcium 8.6, Magnesium 2.1, Troponin I 0.04, Triglycerides 91, Cholesterol 126 L, LDL Cholesterol 78, VLDL Cholesterol 18, HDL Cholesterol 30, Cholesterol/HDL Ratio 4.2 H 03/12/19 05:56: POC Glucose 260 H I & O for Last 24 hours: Intake & Output 03/09/19 03/10/19 03/11/19 03/12/19 11:59 11:59 11:59 11:59 Intake Total 480 / 480 Output Total 650 / 650 Balance -170 / -170 Weight 230 lb 6 oz - Constitutional no acute distress, obese - *Routine HEENT Exam Head: Present: normocephalic Eye: Present: PERRL ENT: Present: mucous membranes moist - *Routine Neck Exam Present: supple. Absent: lymphadenopathy - *Routine Respiratory Exam Present: rales, rhonchi, diminished air movement - *Routine Cardiovascular Exam Present: irregular rhythm - *Routine Abdominal Exam Present: soft, normoactive bowel sounds. Absent: tenderness - *Routine Extremities Exam Present: full ROM. Absent: cyanosis, clubbing, edema - *Routine Skin Exam Present: warm. Absent: rash Comments: scattered scabbed areas to legs - *Routine Neurological Exam Present: alert, oriented X3 - Routine Psychiatric Exam Present: normal affect Assessment and Plan (1) Acute exacerbation of CHF (congestive heart failure) Current visit: Yes Status: Acute Qualifiers: Heart failure type: unspecified Qualified Code(s): I50.9 - Heart failure, unspecified Category: Medical Code(s): I50.9 - Heart failure, unspecified (2) Diabetes mellitus Current visit: Yes Status: Acute Qualifiers: Diabetes mellitus type: type 2 Diabetes mellitus senior care insulin use: unspecified senior care insulin use status Diabetes mellitus complication status: with unspecified complications Qualified Code(s): E11.8 - Type 2 diabetes mellitus with unspecified complications Category: Medical Code(s): E11.9 - Type 2 diabetes mellitus without complications (3) CAD (coronary artery disease) Current visit: Yes Status: Chronic Qualifiers: Coronary Disease-Associated Artery/Lesion type: unspecified vessel or lesion type [place] vs. transplanted heart: [place] heart Associated angina: without angina Qualified Code(s): I25.10 - Atherosclerotic heart disease of [place] coronary artery without angina pectoris Category: Medical Code(s): I25.10 - Atherosclerotic heart disease of [place] coronary artery without angina pectoris (4) History of atrial fibrillation Current visit: Yes Status: Chronic Category: Medical Code(s): Z86.79 - Personal history of other diseases of the circulatory system (5) Obesity Current visit: Yes Status: Chronic Qualifiers: Obesity type: due to excess calories Obesity classification: adult class 1 (BMI 30 - 34.9) Serious obesity comorbidity presence: with serious comorbidity Body mass index: BMI 34.0-34.9 Qualified Code(s): E66.09 - Other obesity due to excess calories; Z68.34 - Body mass index (BMI) 34.0-34.9, adult Category: Medical Code(s): E66.9 - Obesity, unspecified (6) Renal insufficiency Current visit: Yes Status: Chronic Category: Medical Code(s): N28.9 - Disorder of kidney and ureter, unspecified (7) Diabetes mellitus type 2 in obese Current visit: No Status: Chronic Category: Medical Code(s): E11.69 - Type 2 diabetes mellitus with other specified complication; E66.9 - Obesity, unspecified (8) Mitral valve regurgitation Current visit: No Status: Chronic Qualifiers: Cardiac valve disease etiology: etiology unspecified Qualified Code(s): I34.0 - Nonrheumatic mitral (valve) insufficiency Category: Medical Code(s): I34.0 - Nonrheumatic mitral (valve) insufficiency (9) Hyperkalemia Current visit: Yes Status: Acute Category: Medical Code(s): E87.5 - Hyperkalemia (10) Aortic stenosis Current visit: Yes Status: Chronic Qualifiers: Cardiac valve disease etiology: etiology unspecified Qualified Code(s): I35.0 - Nonrheumatic aortic (valve) stenosis Category: Medical Code(s): I35.0 - Nonrheumatic aortic (valve) stenosis (11) Obesity (BMI 30-39.9) Current visit: No Status: Acute Category: Medical Code(s): E66.9 - Obesity, unspecified (12) Hypothyroidism Current visit: No Status: Chronic Qualifiers: Hypothyroidism type: acquired Qualified Code(s): E03.9 - Hypothyroidism, unspecified Category: Medical Code(s): E03.9 - Hypothyroidism, unspecified - Assessment and plan all Dx Assessment and Plan for all problems:: rounded with cindy all orders per cindy
--- NOTE | 2019-03-12 15:50 | Cardiology Report ---
PROCEDURE: 2-D M-mode and color Doppler study INDICATIONS FOR THE TEST: Chest pain+ COPD+ Heart Murmur Tobacco Smoking Palpitations Fatigue Syncope Edema Hypertension+Diabetes Mellitus+ Rheumatic Fever SOB+AVILES Obesity+Hyperlipidemia Family History HD Additional History DEFINITY GIVEN, MOD/SEVERE MR, 40-45% EF 11/23/18, AFIB, PACER, OLD DC, CA PATIENT INFORMATION HEIGHT: 68 WEIGHT:229 GENDER: Male B/P:150/90 2-D/M-MODE INTERPRETATION: 2-D MEASUREMENTS OBSERVED VALUES IN CMS Right Ventricular Dimension (RVDd) 3.2 Interventricular Septum (Thickness)(IVsd) 1.5 Left Ventricular Internal Dimensions(LVIDd) 5.7 Left Ventricular Posterior Wall (Thickness)(LVPWd) 1.3 Aortic Root 4.5 Aortic Cusp Separation 1.1 Left Atrial Dimensions (LAD) 4.5 2D 1. Technically difficult study because of the patient's factor and poor acoustic windows, Definity contrast was utilized to delineate endocardial surfaces. 2. Left atrium is mildly enlarged, left ventricle is normal size, mild concentric left ventricular hypertrophy, visually estimated ejection fraction 40-45%, with no obvious regional wall motion abnormality, despite Definity contrast endocardial surfaces are poorly visualized this study. 3. The right atrium and right ventricle are mildly enlarged with normal contractility. There is a pacemaker lead seen in the right ventricle. 4. The aortic valve is thickened and calcified, leaflet continue to display mobility. 5. The mitral and tricuspid valve leaflets are minimally thickened. 6. The pulmonic valve is poorly present. 7. No significant pericardial effusion noted. DOPPLER INTERROGATION: 1. The aortic outflow velocities mildly increased does not represent significant aortic stenosis, there is no aortic insufficiency. 2. The mitral inflow velocity within normal range, there is no mitral stenosis, there is at least moderate mitral regurgitation. 3. There is mild tricuspid regurgitation noted, tricuspid regurgitation jet velocity is inadequate for calculation of the right ventricular systolic pressure. CONCLUSION: 1. Technically very difficult study because of the patient's factor and poor acoustic windows, despite the use of the Definity contrast endocardial surfaces are still poorly visualized. 2. Mildly enlarged left atrium, normal left ventricle is, mild concentric left ventricular hypertrophy, visually estimated ejection fraction of 40-45% as described above. 3. Mildly enlarged right ventricle with normal contractility. 4. Thickened and calcified aortic valve with mild increased velocities across the aortic valve, does not represent significant aortic stenosis. 5. Moderate mitral and mild tricuspid regurgitation 6. No significant pericardial effusion noted.
[2019-03-13 07:45] LABS: Basophils % 0.4 % (0.1-2.0); Eosinophils # 0.3 K/mm3 (0.0-0.4); Eosinophils % 2.9 % (0.1-12.0); Hematocrit 33.1 % (42.0-52.0); Hemoglobin 10.5 g/dL (14.1-18.0); Lymphocytes # 1.1 K/mm3 (0.7-4.5); Lymphocytes % 10.9 % (10-50); Mean Corpuscular HGB Conc 31.6 g/dL (31.8-35.4); Mean Corpuscular Hemoglobin 31.3 pg (27.0-31.2); Mean Corpuscular Volume 98.9 fl (80-94); Mean Platelet Volume 7.3 fl (7.4-10.4); Monocytes # 0.9 K/mm3 (0.1-1.0); Monocytes % 8.6 % (1.7-9.3); Neutrophils # 8.1 K/mm3 (1.8-7.8); Neutrophils % 77.3 % (37.0-80.0); Platelet Count 366 K/mm3 (142-424); Red Blood Count 3.34 M/mm3 (4.60-6.20); Red Cell Distribution Width 15.1 % (11.5-17.5); White Blood Count 10.5 K/mm3 (4.8-10.8)
[2019-03-13 08:09] LABS: Albumin Level 2.3 gm/dL (3.4-5.0); Albumin/Globulin Ratio 0.5 (1.1-1.8); Anion Gap 10.5 mEq/L (5-15); Bilirubin,Total 0.3 mg/dL (0.2-1.0); Calcium 8.2 mg/dL (8.5-10.1); Globulin 4.2 gm/dl (1.3-3.2); Potassium 4.5 mmoL/L (3.5-5.1); Total Protein,Serum 6.5 gm/dL (6.4-8.2)
--- NOTE | 2019-03-13 09:28 | Progress Note ---
Internal Medicine - PN: Subj *Date: 03/13/19 *Time: 09:26 Interval history: pt still needing o2, pt c/o still sob Pt has incontinence making I&O difficult Exam Vital signs and Labs for Last 24 Hours: Temp Pulse Resp BP Pulse Ox 98.9 F 108 H 18 148/85 H 98 03/13/19 07:55 03/13/19 09:11 03/13/19 09:11 03/13/19 07:55 03/13/19 09:11 Laboratory Results - last 24 hr 03/12/19 11:09: POC Glucose 319 H* 03/12/19 16:43: POC Glucose 227 H 03/12/19 19:52: POC Glucose 207 H 03/13/19 05:34: POC Glucose 208 H 03/13/19 06:30: WBC 10.5, RBC 3.34 L, Hgb 10.5 L, Hct 33.1 L, MCV 98.9 H, MCH 31.3 H, MCHC 31.6 L, RDW 15.1, Plt Count 366, MPV 7.3 L, Neut % (Auto) 77.3, Lymph % (Auto) 10.9, [place] % (Auto) 8.6, Eos % (Auto) 2.9, Baso % (Auto) 0.4, Neut # (Auto) 8.1 H, Lymph # (Auto) 1.1, [place] # (Auto) 0.9, Eos # (Auto) 0.3, Baso # (Auto) 0.0 03/13/19 06:30: Sodium 140, Potassium 4.5, Chloride 105, Carbon Dioxide 29 D, Anion Gap 10.5, BUN 30 H, Creatinine 1.55 H, Estimated Creat Clear 63, Estimated GFR 44 L, Est GFR ( Amer) 53 L, Glucose 187 H, Calcium 8.2 L, Total Bilirubin 0.3, AST 11 L D, ALT 25 D, Alkaline Phosphatase 147 H, Total Protein 6.5, Albumin 2.3 L D, Globulin 4.2 H, Albumin/Globulin Ratio 0.5 L I & O for Last 24 hours: Intake & Output 03/10/19 03/11/19 03/12/19 03/13/19 11:59 11:59 11:59 11:59 Intake Total 480 / 480 1648 / 1648 Output Total 1100 / 1100 1675 / 1675 Balance -620 / -620 -27 / -27 Weight 230 lb 6 oz 230 lb 1 oz - Constitutional no acute distress - *Routine HEENT Exam Head: Present: normocephalic Eye: Present: PERRL ENT: Present: mucous membranes moist - *Routine Neck Exam Present: supple. Absent: lymphadenopathy - *Routine Respiratory Exam Present: rhonchi, wheezes - *Routine Cardiovascular Exam Present: RRR - *Routine Abdominal Exam Present: soft, normoactive bowel sounds. Absent: tenderness - *Routine Extremities Exam Present: full ROM - *Routine Skin Exam Present: warm. 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 transplanted heart: [place] heart Associated angina: without angina Qualified Code(s): I25.10 - Atherosclerotic heart disease of [place] coronary artery without angina pectoris Category: Medical Code(s): I25.10 - Atherosclerotic heart disease of [place] coronary artery without angina pectoris (4) History of atrial fibrillation Current visit: Yes Status: Chronic Category: Medical Code(s): Z86.79 - Personal history of other diseases of the circulatory system (5) Obesity Current visit: Yes Status: Chronic Qualifiers: Obesity type: due to excess calories Obesity classification: adult class 1 (BMI 30 - 34.9) Serious obesity comorbidity presence: with serious comorbidity Body mass index: BMI 34.0-34.9 Qualified Code(s): E66.09 - Other obesity due to excess calories; Z68.34 - Body mass index (BMI) 34.0-34.9, adult Category: Medical Code(s): E66.9 - Obesity, unspecified (6) Renal insufficiency Current visit: Yes Status: Chronic Category: Medical Code(s): N28.9 - Disorder of kidney and ureter, unspecified (7) Diabetes mellitus type 2 in obese Current visit: No Status: Chronic Category: Medical Code(s): E11.69 - Type 2 diabetes mellitus with other specified complication; E66.9 - Obesity, unspecified (8) Mitral valve regurgitation Current visit: No Status: Chronic Qualifiers: Cardiac valve disease etiology: etiology unspecified Qualified Code(s): I34.0 - Nonrheumatic mitral (valve) insufficiency Category: Medical Code(s): I34.0 - Nonrheumatic mitral (valve) insufficiency - Assessment and plan all Dx Assessment and Plan for all problems:: cindy rounded earlier, all orders per cindy try weaning o2 possible dc in am
[2019-03-14 05:16] LABS: Basophils % 0.4 % (0.1-2.0); Eosinophils # 0.4 K/mm3 (0.0-0.4); Eosinophils % 4.4 % (0.1-12.0); Hematocrit 32.1 % (42.0-52.0); Hemoglobin 10.5 g/dL (14.1-18.0); Lymphocytes # 1.2 K/mm3 (0.7-4.5); Lymphocytes % 14.2 % (10-50); Mean Corpuscular HGB Conc 32.8 g/dL (31.8-35.4); Mean Corpuscular Hemoglobin 31.9 pg (27.0-31.2); Mean Corpuscular Volume 97.3 fl (80-94); Mean Platelet Volume 7.4 fl (7.4-10.4); Monocytes # 0.7 K/mm3 (0.1-1.0); Monocytes % 8.1 % (1.7-9.3); Neutrophils % 72.8 % (37.0-80.0); Platelet Count 358 K/mm3 (142-424); Red Cell Distribution Width 15.3 % (11.5-17.5); White Blood Count 8.3 K/mm3 (4.8-10.8)
[2019-03-14 05:19] LABS: Anion Gap 9.9 mEq/L (5-15); Calcium 8.5 mg/dL (8.5-10.1); Potassium 4.9 mmoL/L (3.5-5.1)
--- NOTE | 2019-03-14 08:14 | Progress Note ---
Internal Medicine - PN: Subj *Date: 03/14/19 *Time: 08:11 Interval history: some better but still on o2 and wheezing and rales Exam Vital signs and Labs for Last 24 Hours: Temp Pulse Resp BP Pulse Ox 98.3 F 107 H 16 167/108 H 93 L 03/14/19 04:00 03/14/19 04:00 03/14/19 04:00 03/14/19 04:00 03/14/19 04:00 Laboratory Results - last 24 hr 03/13/19 06:30: Sodium 140, Potassium 4.5, Chloride 105, Carbon Dioxide 29 D, Anion Gap 10.5, BUN 30 H, Creatinine 1.55 H, Estimated Creat Clear 63, Estimated GFR 44 L, Est GFR ( Amer) 53 L, Glucose 187 H, Calcium 8.2 L, Total Bilirubin 0.3, AST 11 L D, ALT 25 D, Alkaline Phosphatase 147 H, Total Protein 6.5, Albumin 2.3 L D, Globulin 4.2 H, Albumin/Globulin Ratio 0.5 L 03/13/19 11:15: POC Glucose 205 H 03/13/19 17:10: POC Glucose 168 H 03/13/19 20:51: POC Glucose 224 H 03/14/19 04:40: WBC 8.3, RBC 3.30 L, Hgb 10.5 L, Hct 32.1 L, MCV 97.3 H, MCH 31.9 H, MCHC 32.8, RDW 15.3, Plt Count 358, MPV 7.4, Neut % (Auto) 72.8, Lymph % (Auto) 14.2, [place] % (Auto) 8.1, Eos % (Auto) 4.4, Baso % (Auto) 0.4, Neut # (Auto) 6.0, Lymph # (Auto) 1.2, [place] # (Auto) 0.7, Eos # (Auto) 0.4, Baso # (Auto) 0.0 03/14/19 04:40: Sodium 138, Potassium 4.9, Chloride 103, Carbon Dioxide 30, Anion Gap 9.9, BUN 29 H, Creatinine 1.53 H, Estimated Creat Clear 63, Estimated GFR 45 L, Est GFR ( Amer) 54 L, Glucose 189 H, Calcium 8.5 03/14/19 06:03: POC Glucose 188 H I & O for Last 24 hours: Intake & Output 03/11/19 03/12/19 03/13/19 03/14/19 11:59 11:59 11:59 11:59 Intake Total 480 / 480 1648 / 1648 1020 / 1020 Output Total 1100 / 1100 2024 600 / 600 Balance -620 / -620 -377 / -377 420 / 420 Weight 230 lb 6 oz 230 lb 1 oz 221 lb 5 oz Microbiology Reports for the Last 24 Hours: Microbiology 03/11/19 23:05 Blood Blood Culture - Preliminary NO GROWTH AFTER 48 HOURS 03/11/19 23:05 Blood Blood Culture - Preliminary NO GROWTH AFTER 48 HOURS - Constitutional no acute distress, obese - *Routine HEENT Exam Head: Present: normocephalic Eye: Present: EOMI, PERRL ENT: Present: mucous membranes dry - *Routine Neck Exam Absent: JVD - *Routine Respiratory Exam Present: decreased breath sounds, rhonchi, wheezes - *Routine Cardiovascular Exam Present: RRR, murmur - *Routine Abdominal Exam Present: soft - *Routine Extremities Exam Absent: Devan's sign - *Routine Skin Exam Present: intact - *Routine Neurological Exam Present: alert, CN II-XII intact - Routine Psychiatric Exam Present: normal affect Assessment and Plan (1) Acute exacerbation of CHF (congestive heart failure) Current visit: Yes Status: Acute Qualifiers: Heart failure type: unspecified Qualified Code(s): I50.9 - Heart failure, unspecified Category: Medical Code(s): I50.9 - Heart failure, unspecified (2) Diabetes mellitus Current visit: Yes Status: Acute Qualifiers: Diabetes mellitus type: type 2 Diabetes mellitus watermaster insulin use: unspecified watermaster insulin use status Diabetes mellitus complication s tatus: with unspecified complications Qualified Code(s): E11.8 - Type 2 diabetes mellitus with unspecified complications Category: Medical Code(s): E11.9 - Type 2 diabetes mellitus without complications (3) CAD (coronary artery disease) Current visit: Yes Status: Chronic Qualifiers: Coronary Disease-Associated Artery/Lesion type: unspecified vessel or lesion type [place] vs. transplanted heart: [place] heart Associated angina: without angina Qualified Code(s): I25.10 - Atherosclerotic heart disease of [place] coronary artery without angina pectoris Category: Medical Code(s): I25.10 - Atherosclerotic heart disease of [place] coronary artery without angina pectoris (4) History of atrial fibrillation Current visit: Yes Status: Chronic Category: Medical Code(s): Z86.79 - Personal history of other diseases of the circulatory system (5) Obesity Current visit: Yes Status: Chronic Qualifiers: Obesity type: due to excess calories Obesity classification: adult class 1 (BMI 30 - 34.9) Serious obesity comorbidity presence: with serious comorbidity Body mass index: BMI 34.0-34.9 Qualified Code(s): E66.09 - Other obesity due to excess calories; Z68.34 - Body mass index (BMI) 34.0-34.9, adult Category: Medical Code(s): E66.9 - Obesity, unspecified (6) Renal insufficiency Current visit: Yes Status: Chronic Category: Medical Code(s): N28.9 - Disorder of kidney and ureter, unspecified (7) Diabetes mellitus type 2 in obese Current visit: No Status: Chronic Category: Medical Code(s): E11.69 - Type 2 diabetes mellitus with other specified complication; E66.9 - Obesity, unspecified (8) Mitral valve regurgitation Current visit: No Status: Chronic Qualifiers: Cardiac valve disease etiology: etiology unspecified Qualified Code(s): I34.0 - Nonrheumatic mitral (valve) insufficiency Category: Medical Code(s): I34.0 - Nonrheumatic mitral (valve) insufficiency
--- NOTE | 2019-03-15 09:04 | Progress Note ---
Internal Medicine - PN: Subj *Date: 03/15/19 *Time: 09:02 Interval history: doing better but has positive sputum and cxr Exam Vital signs and Labs for Last 24 Hours: Temp Pulse Resp BP Pulse Ox 98.1 F 88 18 145/94 H 93 L 03/15/19 07:18 03/15/19 08:18 03/15/19 07:18 03/15/19 07:18 03/15/19 07:18 Laboratory Results - last 24 hr 03/14/19 11:56: POC Glucose 297 H 03/14/19 16:29: POC Glucose 347 H* 03/14/19 20:35: POC Glucose 349 H* 03/15/19 05:46: POC Glucose 303 H* I & O for Last 24 hours: Intake & Output 03/12/19 03/13/19 03/14/19 03/15/19 11:59 11:59 11:59 11:59 Intake Total 480 / 480 1648 / 1648 1500 / 1500 2100 / 2100 Output Total 1100 / 1100 2025 / 2025 600 / 600 500 / 500 Balance -620 / -620 -377 / -377 900 / 900 1600 / 1600 Weight 230 lb 6 oz 230 lb 1 oz 221 lb 5 oz 221 lb 7 oz Microbiology Reports for the Last 24 Hours: Microbiology 03/14/19 09:15 Sputum - Expectorated Sputum Gram Stain - Final 03/14/19 09:15 Sputum - Expectorated Sputum Sputum Culture - Preliminary Gram Positive Bacilli - Constitutional no acute distress, obese - *Routine HEENT Exam Head: Present: normocephalic Eye: Present: EOMI, PERRL ENT: Present: mucous membranes dry - *Routine Neck Exam Absent: JVD - *Routine Respiratory Exam Present: decreased breath sounds - *Routine Cardiovascular Exam Present: RRR, murmur - *Routine Abdominal Exam Present: soft - *Routine Extremities Exam Absent: calf tenderness - *Routine Skin Exam Present: intact - *Routine Neurological Exam Present: alert, CN II-XII intact - Routine Psychiatric Exam Present: normal affect Assessment and Plan (1) Acute exacerbation of CHF (congestive heart failure) Current visit: Yes Status: Acute Qualifiers: Heart failure type: unspecified Qualified Code(s): I50.9 - Heart failure, unspecified Category: Medical Code(s): I50.9 - Heart failure, unspecified (2) Diabetes mellitus Current visit: Yes Status: Acute Qualifiers: Diabetes mellitus type: type 2 Diabetes mellitus shelter insulin use: unspecified shelter insulin use status Diabetes mellitus complication status: with unspecified complications Qualified Code(s): E11.8 - Type 2 diabetes mellitus with unspecified complications Category: Medical Code(s): E11.9 - Type 2 diabetes mellitus without complications (3) CAD (coronary artery disease) Current visit: Yes Status: Chronic Qualifiers: Coronary Disease-Associated Artery/Lesion type: unspecified vessel or lesion type [place] vs. transplanted heart: [place] heart Associated angina: without angina Qualified Code(s): I25.10 - Atherosclerotic heart disease of [place] coronary artery without angina pectoris Category: Medical Code(s): I25.10 - Atherosclerotic heart disease of [place] coronary artery without angina pectoris (4) History of atrial fibrillation Current visit: Yes Status: Chronic Category: Medical Code(s): Z86.79 - Personal history of other diseases of the circulatory system (5) Obesity Current visit: Yes Status: Chronic Qualifiers: Obesity type: due to excess calories Obesity classification: adult class 1 (BMI 30 - 34.9) Serious obesity comorbidity presence: with serious comorbidity Body mass index: BMI 34.0-34.9 Qualified Code(s): E66.09 - Other obesity due to excess calories; Z68.34 - Body mass index (BMI) 34.0-34.9, adult Category: Medical Code(s): E66.9 - Obesity, unspecified (6) Renal insufficiency Current visit: Yes Status: Chronic Category: Medical Code(s): N28.9 - Disorder of kidney and ureter, unspecified (7) Diabetes mellitus type 2 in obese Current visit: No Status: Chronic Category: Medical Code(s): E11.69 - Type 2 diabetes mellitus with other specified complication; E66.9 - Obesity, unspecified (8) Mitral valve regurgitation Current visit: No Status: Chronic Qualifiers: Cardiac valve disease etiology: etiology unspecified Qualified Code(s): I34.0 - Nonrheumatic mitral (valve) insufficiency Category: Medical Code(s): I34.0 - Nonrheumatic mitral (valve) insufficiency (9) CAP (community acquired pneumonia) Current visit: Yes Status: Acute Qualifiers: Laterality: left Lung location: lower lobe of lung Qualified Code(s): J18.1 - Lobar pneumonia, unspecified organism Category: Medical Code(s): J18.9 - Pneumonia, unspecified organism
--- NOTE | 2019-03-16 08:58 | Discharge Summary ---
General - General Admission date:: 03/12/19 Discharge date: 03/16/19 HPI HPI: 74-year-old male patient sitting up in a chair this morning. Reports he had a good evening denies any shortness of breath or chest pain. Reports he is ready to go back to [place]. 74-year-old male resident of [facility] presented to the ER for evaluation of shortness of breath. Patient states a several day history of increasing shortness of breath but was sudden worsening last evening. He denies any chest pain, pressure, palpitations or tightness. He has limited activity since his left femur fracture in November of this year. He is participating in [facility] and physical therapy.ER work-up included BNP over 900 with mild hyperkalemia, mild renal insufficiency and normal troponins. EKG appears to be atrial fibrillation with mild tachycardic rate.-randee [facility] Course Hospital Course: 03/12/2019 ECHO: CONCLUSION: 1. Technically very difficult study because of the patient's factor and poor acoustic windows, despite the use of the Definity contrast endocardial surfaces are still poorly visualized. 2. Mildly enlarged left atrium, normal left ventricle is, mild concentric left ventricular hypertrophy, visually estimated ejection fraction of 40-45% as described above. 3. Mildly enlarged right ventricle with normal contractility. 4. Thickened and calcified aortic valve with mild increased velocities across the aortic valve, does not represent significant aortic stenosis. 5. Moderate mitral and mild tricuspid regurgitation 6. No significant pericardial effusion noted. Dictated By: Fransico Moses MD Patient will be discharged back to [place] today. Originally presented to the ER on 03/11 for shortness of breath. Chest x-ray 03/16 showed left lower lobe pneumonia, sputum cultures have grown gram-positive bacilli, for that he is receiving IV Levaquin, he will be D/C w/ PO Levaquin. Blood cultures x 2-. He also had an echo performed on 03/12. Objective Vital signs: Temp Pulse Resp BP Pulse Ox 99.0 F 90 18 178/99 H 91 L 03/16/19 08:00 03/16/19 08:28 03/16/19 08:00 03/16/19 08:00 03/16/19 08:00 no acute distress - *Routine HEENT Exam Head: Present: normocephalic Eye: Present: EOMI, PERRL ENT: Present: mucous membranes moist - *Routine Neck Exam Present: supple, full ROM - *Routine Respiratory Exam Present: rhonchi - *Routine Cardiovascular Exam Present: murmur - *Routine Abdominal Exam Present: soft, normoactive bowel sounds. Absent: tenderness - *Routine Extremities Exam Present: pulses intact - *Routine Skin Exam Present: intact - *Routine Neurological Exam Present: alert, oriented X3, CN II-XII intact - Routine Psychiatric Exam Present: normal affect, normal thought process Results Labs on day of discharge: Labs from last 24 hours 03/16/19 03/15/19 03/15/19 05:09 19:57 16:54 POC Glucose 299 H 282 H 329 H* 03/15/19 12:04 POC Glucose 361 H* Preliminary micro results at discharge 03/14/19 09:15 Sputum Culture - Preliminary Sputum - Expectorated Sputum Gram Positive Bacilli 03/11/19 23:05 Blood Culture - Preliminary Blood NO GROWTH AFTER 48 HOURS 03/11/19 23:05 Blood Culture - Preliminary Blood NO GROWTH AFTER 48 HOURS DS: Diagnosis - Discharge Diagnosis (1) Acute exacerbation of CHF (congestive heart failure) Status: Acute (2) Diabetes mellitus Status: Acute (3) CAD (coronary artery disease) Status: Chronic (4) History of atrial fibrillation Status: Chronic (5) Obesity Status: Chronic (6) Renal insufficiency Status: Chronic (7) Diabetes mellitus type 2 in obese Status: Chronic (8) Mitral valve regurgitation Status: Chronic (9) CAP (community acquired pneumonia) Status: Acute Discharge Plan - Patient Discharge Instructions ACTIVITY: Continue current activity DIET: continue same diet Patient Instructions: Congestive Heart Failure (Alternative Therapy), Pneumonia-Adult, Heart Failure, DI for Heart Failure, Low-Sodium Diet - Follow up Plan Follow up with: Dave Vazquez MD [Primary Care Provider] - 1 week Disposition: [facility] Home Medications: Home Medications Medication Instructions Recorded Confirmed Type ascorbic acid (vitamin C) 500 mg 500 mg PO DAILY tab 10/30/17 03/11/19 History tablet atorvastatin 40 mg tablet 40 mg PO HS 10/30/17 03/11/19 History ferrous sulfate 325 mg (65 mg 325 mg PO Q48H tab 10/30/17 03/12/19 History iron) tablet levothyroxine 50 mcg tablet 50 mcg PO DAILY tab 10/30/17 03/11/19 History Duloxetine HCl [Cymbalta 30mg 60 mg PO DAILY 04/12/18 03/12/19 History capsule] carBAMazepine [Tegretol 100mg 100 mg PO BID 08/23/18 03/11/19 History tablet] Sacubitril/Valsartan [Entresto 1 each PO BID 10/09/18 03/11/19 History 24/26mg Tablet] Acetaminophen [Acetaminophen 325mg 500 mg PO Q4HP PRN 11/23/18 03/11/19 History tab] Amlodipine Besylate [Norvasc 10mg 10 mg PO DAILY 11/23/18 03/11/19 History tablet] Docusate Sodium [Colace 250mg 250 mg PO DIRECTED 11/23/18 03/11/19 History capsule] Fluticasone Propionate [Flonase 1 spr NS DAILY 11/23/18 03/11/19 History 50mcg nasal spray 16gm] Insulin Lispro [Humalog Kwikpen 26 unit SQ PC 11/23/18 03/11/19 History U-100] Isosorbide Mononitrate [Imdur 30mg 30 mg PO DAILY 11/23/18 03/11/19 History ER tablet] Oxycodone HCl/Acetaminophen 1 each PO Q4HP PRN 11/23/18 03/12/19 History [Endocet 5-325 Tablet] Trazodone HCl 100 mg PO DAILY 03/11/19 03/11/19 History Aspirin [Aspirin 325mg Tab] 325 mg PO BID 03/12/19 03/12/19 History Carvedilol [Coreg 6.25mg 6.25 mg PO HS 03/12/19 03/12/19 History Tablet] Ergocalciferol (Vitamin D2) 50,000 unit PO WEEKLY 03/12/19 03/12/19 History [Vitamin D2] Insulin Glargine,Hum.rec.anlog 35 unit SQ HS 03/12/19 03/12/19 History [Lantus Insulin 100units/mL 10mL vial] Carvedilol [Coreg 25mg Tablet] 25 mg PO BID 30 Days #60 tab 03/16/19 Rx levoFLOXacin [Levaquin 500mg 500 mg PO DAILY #7 tab 03/16/19 Rx tab] Prescriptions/Medication Reconciliation: New levoFLOXacin [Levaquin 500mg tab] 500 mg PO DAILY #7 tab Carvedilol [Coreg 25mg Tablet] 25 mg PO BID 30 Days #60 tab Continued atorvastatin 40 mg tablet 40 mg PO HS ferrous sulfate 325 mg (65 mg iron) tablet 325 mg PO Q48H tab levothyroxine 50 mcg tablet 50 mcg PO DAILY tab ascorbic acid (vitamin C) 500 mg tablet 500 mg PO DAILY tab Duloxetine HCl [Cymbalta 30mg capsule] 60 mg PO DAILY Isosorbide Mononitrate [Imdur 30mg ER tablet] 30 mg PO DAILY Fluticasone Propionate [Flonase 50mcg nasal spray 16gm] 1 spr NS DAILY Acetaminophen [Acetaminophen 325mg tab] 500 mg PO Q4HP PRN PRN Reason: As Needed For Fever Or Pain Docusate Sodium [Colace 250mg capsule] 250 mg PO DIRECTED Amlodipine Besylate [Norvasc 10mg tablet] 10 mg PO DAILY Carvedilol [Coreg 6.25mg Tablet] 6.25 mg PO HS Insulin Glargine,Hum.rec.anlog [Lantus Insulin 100units/mL 10mL vial] 35 unit SQ HS Aspirin [Aspirin 325mg Tab] 325 mg PO BID carBAMazepine [Tegretol 100mg tablet] 100 mg PO BID Sacubitril/Valsartan [Entresto 24/26mg Tablet] 1 each PO BID Insulin Lispro [Humalog Kwikpen U-100] 26 unit SQ PC Oxycodone HCl/Acetaminophen [Endocet 5-325 Tablet] 1 each PO Q4HP PRN PRN Reason: pain Trazodone HCl 100 mg PO DAILY Ergocalciferol (Vitamin D2) [Vitamin D2] 50,000 unit PO WEEKLY - Additional Information Additional Information: Rounded with any orders per Dr. Vazquez
--- NOTE | 2019-03-16 09:29 | Progress Note ---
Subjective Date: 03/16/19 Time: 09:25 Principal diagnosis: CHF Interval history: 74 yo WM in chair in NAD. Breathing has improved. Still with cough but better. Going to [facility]. Exam Vital signs and Labs for Last 24 Hours: Temp Pulse Resp BP Pulse Ox 99.0 F 90 18 178/99 H 91 L 03/16/19 08:00 03/16/19 08:28 03/16/19 08:00 03/16/19 08:00 03/16/19 08:00 Laboratory Results - last 24 hr 03/15/19 12:04: POC Glucose 361 H* 03/15/19 16:54: POC Glucose 329 H* 03/15/19 19:57: POC Glucose 282 H 03/16/19 05:09: POC Glucose 299 H I & O for Last 24 hours: Intake & Output 03/13/19 03/14/19 03/15/19 03/16/19 11:59 11:59 11:59 11:59 Intake Total 1648 / 1648 1500 / 1500 2440 / 2440 960 / 960 Output Total 2025 / 2025 600 / 600 500 / 500 901 / 901 Balance -377 / -377 900 / 900 1940 / 1940 59 / 59 Weight 230 lb 1 oz 221 lb 5 oz 221 lb 7 oz Microbiology Reports for the Last 24 Hours: Microbiology 03/14/19 09:15 Sputum - Expectorated Sputum Gram Stain - Final 03/14/19 09:15 Sputum - Expectorated Sputum Sputum Culture - Preliminary Gram Positive Bacilli - *Routine Respiratory Exam Present: decreased breath sounds, rhonchi. Absent: accessory muscle use, rales, wheezes - *Routine Cardiovascular Exam Absent: murmur, gallop, rubs - *Routine Extremities Exam Absent: edema, calf tenderness - *Routine Neurological Exam Present: alert, oriented X3, moving all extremities Progress Note: A&P (1) Acute exacerbation of CHF (congestive heart failure) Status: Acute Current Visit: Yes (2) Diabetes mellitus Status: Acute Current Visit: Yes (3) CAD (coronary artery disease) Status: Chronic Current Visit: Yes (4) History of atrial fibrillation Status: Chronic Current Visit: Yes (5) Obesity Status: Chronic Current Visit: Yes (6) Renal insufficiency Status: Chronic Current Visit: Yes (7) Diabetes mellitus type 2 in obese Status: Chronic Current Visit: No (8) Mitral valve regurgitation Status: Chronic Current Visit: No (9) CAP (community acquired pneumonia) Status: Acute Current Visit: Yes Assessment and Plan for All Diagnoses:: 1. We will increase Coreg to 50 mg twice daily for both blood pressure and heart rate control along with digoxin 0.125 mg daily. 2. Continue Xarelto 15 mg dialy for atrial fibrillation. Will consider cardioversion after 30 days of therapy if the patient remains in atrial fibrillation 3. Continue Entresto / 2 tabs BID, atorvastatin 40 mg daily, and isosorbide mononitrate 30 mg daily 4. Switch Lasix to 40 mg PO BID with close monitoring of renal functions weekly 5. Follow up in our office in 1-2 wks with plans to discuss CardioMems placement for monitoring of CHF.
== END 2019-03-16 10:50 ==
LOC: 2ND 22:44 → ER 22:44 → 2ND 03-12 00:47
PROVIDERS: ADMIT Emergency Medicine; ATTEND Emergency Medicine
CPT/HCPCS: 36415; 71010; 71020; 71045; 71046; 80048; 80053; 80061; 80156; 82803; 82962; 83605; 83735; 83880; 84484; 85007; 85025; 87040; 87070; 87077; 87205; 93005; 93306; 94640; 94761; 96365; 97161; 99284; G0378; J1956; J2405

== ENCOUNTER 2019-04-01 00:34 | Observation (INO) ==
--- NOTE | 2019-04-01 01:00 | Emergency Department Note ---
ED Disposition Clinical Impression: HCAP (healthcare-associated pneumonia), Obesity (BMI 30-39.9), Severe sepsis, Elevated erythrocyte sedimentation rate, Renal insufficiency Acute exacerbation of CHF (congestive heart failure) Qualifiers: Heart failure type: unspecified Qualified Code(s): I50.9 - Heart failure, unspecified A-fib Qualifiers: Atrial fibrillation type: paroxysmal Qualified Code(s): I48.0 - Paroxysmal atrial fibrillation Disposition: Admitted as Observation Condition on Discharge: Fair Referrals: Dave Vazquez MD [Primary Care Provider] - - Critical Care Critical Care Time: No Attestation: On 04/01/19, the high probability of a clinically significant, sudden or life threatening deterioration of the following system(s) required my full and direct attention, intervention and personal management. The time I documented below is in addition to time spent performing reported procedures but includes the following listed in this critical care notation. Medical Decision Making - Medical Records Medical records reviewed: Yes: I reviewed the patient's medical records. - Yogesh Inquiry Pt receiving controlled substance: No Vital Signs: 04/01/19 00:40 04/01/19 01:29 04/01/19 02:00 Temperature 100.8 F H Temperature Source Rectal Pulse Rate [Right] 113 H 112 H 80 Respiratory Rate 26 H 22 22 Blood Pressure [Right Arm] 157/100 H 144/106 H 151/88 H Blood Pressure Mean [Right Arm] 119 118 109 Blood Pressure Position [Right Arm] Sitting 02 Sat by Pulse Oximetry 98 98 97 Oxygen Delivery Method Nasal Cannula Oxygen Flow Rate (LPM) 2 - Lab Data Lab results reviewed: Yes: I reviewed the patient's lab results. Lab Results 04/01/19 00:33: Lactate 1.6 04/01/19 01:20: WBC 12.6 H, RBC 3.45 L, Hgb 10.2 L, Hct 32.0 L, MCV 92.8, MCH 29.6, MCHC 31.9, RDW 14.6, Plt Count 333, MPV 7.4, Neut % (Auto) 77.0, Lymph % (Auto) 9.1 L, [place] % (Auto) 7.4, Eos % (Auto) 5.9, Baso % (Auto) 0.6, Neut # (Auto) 9.7 H, Lymph # (Auto) 1.1, [place] # (Auto) 0.9, Eos # (Auto) 0.7 H, Baso # (Auto) 0.1, ESR 109 H 04/01/19 01:20: Sodium 137, Potassium 4.7, Chloride 102, Carbon Dioxide 26, Anion Gap 13.7, BUN 32 H, Creatinine 1.70 H, Estimated Creat Clear 57, Estimated GFR 40 L, Est GFR ( Amer) 48 L, Glucose 173 H, Calcium 8.6, Total Bilirubin 0.4, AST 28, ALT 42, Alkaline Phosphatase 134 H, Troponin I 0.06, C- Reactive Protein 5.6 H, Total Protein 6.8, Albumin 2.2 L, Globulin 4.6 H, Albumin/Globulin Ratio 0.5 L 04/01/19 01:20: B-Natriuretic Peptide 1540 H 04/01/19 01:30: Urine Color Yellow, Urine Appearance Clear, Urine pH 6.0, Ur Specific Froid 1.025, Urine Protein 3+, Urine Glucose (UA) Negative, Urine Ketones Negative, Urine Blood 1+, Urine Nitrate Negative, Urine Bilirubin Negative, Urine Urobilinogen 0.2, Ur Leukocyte Esterase Trace, Urine RBC Occasional, Urine WBC Occasional, Ur Squamous Epith Cells Occasional, Urine Bacteria Trace Result diagrams: 04/01/19 01:20 04/01/19 01:20 Orders (Tests/Meds): ED MEDICATIONS Discontinued Medications Generic Name Dose Route Start Last Admin Trade Name Eleanor PRN Reason Stop Dose Admin Acetaminophen 650 mg 04/01/19 00:51 04/01/19 01:28 Acetaminophen 650mg Suppository RC 04/01/19 00:52 650 mg ONCE ONE Administration Furosemide 40 mg 04/01/19 02:21 04/01/19 02:25 Lasix 40mg/4ml Vial IV 04/01/19 02:22 40 mg ONCE ONE Administration Methylprednisolone Sodium Succinate 125 mg 04/01/19 00:39 04/01/19 01:28 Solu-Medrol 125mg/2ml Vial IV 04/01/19 00:40 125 mg ONCE ONE Administration ORDERS Category Date Time Status Chest XR -- portable [XR chest portable] Stat Exams 04/01/19 00:37 Ordered Blood Culture Stat Micro 04/01/19 01:30 Ordered Arterial Blood Gas Routine RT 04/01/19 00:42 Received Arterial Blood Gas Stat RT 04/01/19 00:37 Ordered ECG Request by /Jake Stat Y 04/01/19 00:37 Ordered - Radiology Data #1 Image(s): Chest Image Reviewed: Yes I reviewed the patient's radiology image Preliminary Findings: Abnormal (changes rt base ) - ECG Data Tracing #1 Arrhythmias present: afib Ischemic changes: non-specific ST-T wave changes ECG compared to prior tracings: there are no significant changes Resp/SOB HPI - General Chief Complaint: Shortness of Breath/Dyspnea Stated Complaint: soa Time Seen by Provider: 04/01/19 00:45 Mode of Arrival: EMS Source of Information: Patient, EMS, Medical Record Limitations: No Limitations Description of Symptoms (Recalled from ER Triage Doc. by RN): Pt c/o soa and feeling anxious. EMS toned out for SOA and HTN. - History of Present Illness pt sent fron [facility] for acute sob with crnp cough -pt with no chest pain - has hx of chf in past MD Complaint: shortness of breath, cough Onset (ago): hour(s) Severity: moderate Known history of: COPD, congestive heart failure, recurrent pneumonia Associated symptoms: denies other symptoms Treatment prior to arrival: oxygen - Related Data Home oxygen amount: none Home Medications Medication Instructions Recorded Confirmed ascorbic acid (vitamin C) 500 mg 500 mg PO DAILY tab 10/30/17 04/01/19 tablet atorvastatin 40 mg tablet 40 mg PO HS 10/30/17 04/01/19 ferrous sulfate 325 mg (65 mg 325 mg PO Q48H tab 10/30/17 04/01/19 iron) tablet levothyroxine 50 mcg tablet 50 mcg PO DAILY tab 10/30/17 04/01/19 Duloxetine HCl [Cymbalta 30mg 60 mg PO DAILY 04/12/18 04/01/19 capsule] carBAMazepine [Tegretol 100mg 100 mg PO BID 08/23/18 04/01/19 tablet] Sacubitril/Valsartan [Entresto 1 each PO BID 10/09/18 04/01/19 24/26mg Tablet] Acetaminophen [Acetaminophen 325mg 500 mg PO Q4HP PRN 11/23/18 04/01/19 tab] Amlodipine Besylate [Norvasc 10mg 10 mg PO DAILY 11/23/18 04/01/19 tablet] Docusate Sodium [Colace 250mg 250 mg PO DIRECTED 11/23/18 04/01/19 capsule] Fluticasone Propionate [Flonase 1 spr NS DAILY 11/23/18 04/01/19 50mcg nasal spray 16gm] Insulin Lispro [Humalog Kwikpen 26 unit SQ PC 11/23/18 04/01/19 U-100] Isosorbide Mononitrate [Imdur 30mg 30 mg PO DAILY 11/23/18 04/01/19 ER tablet] Oxycodone HCl/Acetaminophen 1 each PO Q4HP PRN 11/23/18 04/01/19 [Endocet 5-325 Tablet] Trazodone HCl 100 mg PO DAILY 03/11/19 04/01/19 Aspirin [Aspirin 325mg Tab] 325 mg PO BID 03/12/19 04/01/19 Carvedilol [Coreg 6.25mg 6.25 mg PO HS 03/12/19 04/01/19 Tablet] Ergocalciferol (Vitamin D2) 50,000 unit PO WEEKLY 03/12/19 04/01/19 [Vitamin D2] Insulin Glargine,Hum.rec.anlog 35 unit SQ HS 03/12/19 04/01/19 [Lantus Insulin 100units/mL 10mL vial] valsartan 80 mg tablet 80 mg PO DAILY 03/23/19 04/01/19 Furosemide [Furosemide 40MG tAB] 40 mg PO BID 04/01/19 04/01/19 Rivaroxaban [Xarelto] 15 mg PO QPM 04/01/19 04/01/19 levoFLOXacin [Levaquin 500mg 500 mg PO DAILY 04/01/19 04/01/19 tab] Allergies Allergy/AdvReac Type Severity Reaction Status Date / Time No Known Allergies Allergy Verified 03/23/19 09:37 [facility] History - Hepatitis A Screen Drug use history?: No High risk sexual behaviors?: No History of sexually transmitted infection?: No Currently employed?: No Childcare worker?: No Do you have indoor plumbing?: Yes Do you have electricity?: Yes Attestation statement:: This patient has been screened for Hepatitis A risk factors. I have reviewed the patient's past medical history: Yes Medical History: Reports:: Arrhythmia, Atrial Fibrillation, Cancer, Cardiomyopathy, Congestive Heart Failure, Coronary Artery Disease, Diabetes Mellitus Type 2, Hyperlipidemia, Hypertension, Internal Pacemaker, Myocardial Infarction, Peripheral Vascular Disease Denies:: Diabetes Mellitus Type 1, MRSA Other Medical History: Reports: Anemia, Hypothyroidism Laterality Cases: Left: Total Hip Replacement, Other, Bilateral: Tonsillectomy Other Surgeries: Yes: Cardiac Catheterization, Colonoscopy, Coronary Stent, Pacemaker, Other Amputation: No Fractures: Yes - Social History Smoking Status: Former smoker Tobacco Type: cigarettes # Packs/Day (cigarettes): 2 #Yrs smoked (if former smoker): 25 Alcohol Intake: never Alcohol Intake Frequency:: other Substance Use Type: denies use Occupational Status: unemployed, disabled Housing: halfway Household Members: none - Psychiatric History Expresses thoughts of harming self/others: None Suicide Plan Description: No Plan Family Hx:: Diabetes ROS Obtained: Yes All systems reviewed & no additional complaints - Constitutional Constitutional: Reports fever(s), Reports poor appetite - Eyes Eyes: Denies change in vision - ENT Ears, Nose, Mouth, and Throat: Denies sore throat - Cardiovascular Cardiovascular: Denies chest pain - Respiratory Respiratory: Yes cough, Yes dyspnea - Gastrointestinal Gastrointestingal: Denies: vomiting - Genitourinary Male Genitourinary: Denies hematuria - Musculoskeletal Musculoskeletal: Denies joint swelling - Integumentary/Breasts Skin/Breast: Denies rash - Neurologic Neurologic: Denies seizure-like activity Physical Exam - General General appearance: alert, obese - Head Head exam: normocephalic - Eye Eye exam: Present: PERRL, EOMI. Absent: scleral icterus - ENT ENT exam: Present: mucous membranes dry - Neck Neck exam: Present: trachea midline - Respiratory Respiratory exam: Present: wheezes, other (dec bs bilat ). Absent: respiratory distress - Cardiovascular Cardiovascular exam: Present: irregular rhythm, systolic murmur, +S4 - Abdominal Exam Abdominal exam: Present: soft - Extremities Exam Extremities exam: Absent: calf tenderness - Neurological Exam Neurological exam: Present: alert, CN II-XII intact - Psychiatric Psychiatric exam: Present: anxious - Skin Skin exam: Absent: rash
[2019-04-01 01:26] LABS: Basophils # 0.1 K/mm3 (0-0.2); Basophils % 0.6 % (0.1-2.0); Eosinophils # 0.7 K/mm3 (0.0-0.4); Eosinophils % 5.9 % (0.1-12.0); Hemoglobin 10.2 g/dL (14.1-18.0); Lymphocytes # 1.1 K/mm3 (0.7-4.5); Lymphocytes % 9.1 % (10-50); Mean Corpuscular HGB Conc 31.9 g/dL (31.8-35.4); Mean Corpuscular Hemoglobin 29.6 pg (27.0-31.2); Mean Corpuscular Volume 92.8 fl (80-94); Mean Platelet Volume 7.4 fl (7.4-10.4); Monocytes # 0.9 K/mm3 (0.1-1.0); Monocytes % 7.4 % (1.7-9.3); Neutrophils # 9.7 K/mm3 (1.8-7.8); Platelet Count 333 K/mm3 (142-424); Red Blood Count 3.45 M/mm3 (4.60-6.20); Red Cell Distribution Width 14.6 % (11.5-17.5); White Blood Count 12.6 K/mm3 (4.8-10.8)
[2019-04-01 01:34] LABS: Microscopic, Urine URINE MICROSCOPIC (MICROSCOPIC)
[2019-04-01 01:37] LABS: Appearance,Urine CLEAR (Clear); Bilirubin,Urine Negative (Negative); Blood, Urine 1+ (Negative); Color,Urine YELLOW (Yellow); Glucose,Urine (UA) Negative (Negative); Ketones,Urine Negative (Negative); Leukocyte Esterase,Urine TRACE (Negative); Protein,Urine 3+ (Negative); Specific Gravity, Urine 1.025 (1.005-1.030); Urobilinogen,Urine 0.2 EU/dl (0.2)
[2019-04-01 01:43] LABS: Albumin Level 2.2 gm/dL (3.4-5.0); Albumin/Globulin Ratio 0.5 (1.1-1.8); Anion Gap 13.7 mEq/L (5-15); Bilirubin,Total 0.4 mg/dL (0.2-1.0); C-Reactive Protein 5.6 mg/L (0.0-0.9); Calcium 8.6 mg/dL (8.5-10.1); Globulin 4.6 gm/dl (1.3-3.2); Potassium 4.7 mmoL/L (3.5-5.1); Total Protein,Serum 6.8 gm/dL (6.4-8.2)
[2019-04-01 01:52] LABS: WBC,Urine Occasional #/hpf (0-3)
[2019-04-01 01:53] LABS: Bacteria,Urine Trace /lpf; RBC,Urine Occasional #/hpf (0-3); Squamous Epithelial Cell,Urine Occasional #/hpf (0-5)
[2019-04-01 01:56] LABS: Erythrocyte Sedimentation Rate 109 mm/hr (0-20)
[2019-04-01 06:22] LABS: ABG Base Excess 2.4 mmol/L (-2.4-2.3); ABG HCO3 25.7 mmhg (22.0-26.0); ABG Oxygen Saturation 88 % (90-100); ABG PCO2 34.8 mmhg (35.0-45.0); ABG PH 7.49 mmol/L (7.35-7.45); ABG PO2 54.2 mmhg (80-100); ABG TCO2 26.8 mmhg (23-27); Allen's Test ACCEPTABLE; Oxygen ROOM AIR %
--- NOTE | 2019-04-01 07:26 | Pharmacy Consult Notes ---
[facility] Pharmacy VTE Monitoring - Patient Demographics Admission date: 04/01/19 Report Date: 04/01/19 Time: 07:26 Allergies/Adverse Reactions: Patient Allergies No Known Allergies Allergy (Verified 03/23/19 09:37) Height: 1.7 m Weight: 103.504 kg Patient Problems: Current Active Problems (Updated 04/01/19 @ 02:41 by Dave Vazquez MD) Acute exacerbation of CHF (congestive heart failure) (Acute) HCAP (healthcare-associated pneumonia) (Acute) Obesity (BMI 30-39.9) (Acute) Severe sepsis (Acute) Elevated erythrocyte sedimentation rate (Acute) A-fib (Chronic) Renal insufficiency (Chronic) - VTE Risk Labs: VTE Related Lab Results Hgb 10.2 g/dL (14.1-18.0) L 04/01/19 01:20 Hct 32.0 % (42.0-52.0) L 04/01/19 01:20 Plt Count 333 K/mm3 (142-424) 04/01/19 01:20 BUN 32 mg/dL (7-18) H 04/01/19 01:20 Creatinine 1.70 mg/dL (0.70-1.30) H 04/01/19 01:20 Estimated Creat Clear 57 mL/min (50-200) 04/01/19 01:20 VTE Score: 11 VTE Risk Level: Moderate Risk - Prophylaxis VTE Prophylaxis Ordered?: Yes Types of VTE Prophylaxis: Pharmacological Pharmacologic Type: Other (XARELTO) - VTE Diagnosis Confirmed Treatment or plan recommended: Continue Current Treatment
--- NOTE | 2019-04-01 07:29 | Consult Report ---
History of Present Illness Consult date: 04/01/19 Requesting physician: Dave Vazquez Consult reason: congestive heart failure Chief complaint: SOA Additional Medical History:: 1. DM, treated since 2015 2. HTN A. CHF, recurrent B. Echo, 12/2017, LVEF 45% with distal septum and apical hypokinesis. Mild AI, MR, TR. C. Echo, 04/2018, LVEF 50% with concentric LVH, hypokinesis of inferolateral wall, mild , Moderate MR and mild TR D. Echo, 08/2018, LVEF 40% with moderate to severe MR E. Echo, 11/2018, extremely poor, very difficult study, LVEF 40-45% with hypokinesis in the inferobasal wall. Left atrial size 3.1 cm moderate to severe mitral regurgitation seen. Mild MR and TR. Inadequate for calculation of the right ventricular systolic pressure. 3. Hyperlipidemia, on statin 4. Remote tobacco use 5. 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 Fractured hip, 2016 status post repair A. Left femur fracture after fall, 11/2018 7. Hypothyroidism, on supplement 8. CAD A. NSTEMI, 09/2017 B. Cardiac cath, 09/2017, mild CAD of left main, LAD and RCA with dominant circumflex with mid vessel occlusion. BHARTI to circumflex placed. LVEF 40% with LVEDP 50 mm Hg C. Cardiac cath, 06/2018, 1. The left main artery normal 2. The left anterior descending artery has proximal mild luminal irregularities nothing greater than 10% 3. The circumflex artery is a large dominant vessel with mild 10% luminal irregularities 4. The right coronary artery small vestigial normal 5. The GRIDER ventriculogram reveals normal 65% 6. The left ventricular end-diastolic pressure 20 mmHg 9. History of A. fib, 08/2018, converted with IV medications A. Xarelto therapy 10. Cardiomyopathy, ischemic A. Recurrent CHF related to cardiomyopathy, dietary non-compliance and possible medication discrepancy History of present illness: 74-year-old white male with history of ischemic cardiomyopathy, recurrent congestive heart failure and atrial fibrillation was admitted for recurrent heart failure with suspected pneumonia. Patient relates some mild exertional shortness of breath over the last few days but nothing too alarming until last evening when he developed acute worsening shortness of breath. Patient was transferred to the ER for further evaluation. He was noted to have a fever, abnormal chest x-ray with suspected pneumonia, elevated BNP of 1340 and chronic congestive heart failure on chest x-ray as well. Patient was admitted for further evaluation. Patient states this a.m. he is breathing a little bit better but still has cough. EKG is tachycardic and appears to be atrial fibrillation. Patient is on Xarelto therapy. Cardiology consulted for evaluation. [facility] History Medical History: Reports:: Arrhythmia, Atrial Fibrillation, Cancer, Cardiomyopathy, Congestive Heart Failure, Coronary Artery Disease, Diabetes Mellitus Type 2, Hyperlipidemia, Hypertension, Internal Pacemaker, Myocardial Infarction, Peripheral Vascular Disease Denies:: Diabetes Mellitus Type 1, MRSA *Have you ever received a pneumonia vaccine?: Yes *Have you received a flu vaccine this season?: Yes Other Medical History: Reports: Anemia, Hypothyroidism Laterality Cases: Left: Total Hip Replacement, Other, Bilateral: Tonsillectomy Other Surgeries: Yes: Cardiac Catheterization, Colonoscopy, Coronary Stent, Pacemaker, Other Amputation: No Fractures: Yes - *Social History Educational Level: Completed College Smoking Status: Former smoker Tobacco Type: cigarettes # Packs/Day (cigarettes): 2 #Yrs smoked (if former smoker): 25 Alcohol Intake: never Alcohol Intake Frequency:: other Substance Use Type: denies use *Occupational Status:: unemployed, disabled Housing: group home Household Members: none *Travel in the last 8 weeks: None - Psychiatric History Expresses thoughts of harming self/others: None Suicide Plan Description: No Plan Family Hx:: Diabetes Meds Home Medications Medication Instructions Recorded Confirmed Type ascorbic acid (vitamin C) 500 mg 500 mg PO DAILY tab 10/30/17 04/01/19 History tablet atorvastatin 40 mg tablet 40 mg PO HS 10/30/17 04/01/19 History ferrous sulfate 325 mg (65 mg 325 mg PO Q48H tab 10/30/17 04/01/19 History iron) tablet levothyroxine 50 mcg tablet 50 mcg PO DAILY tab 10/30/17 04/01/19 History Duloxetine HCl [Cymbalta 30mg 60 mg PO DAILY 04/12/18 04/01/19 History capsule] carBAMazepine [Tegretol 100mg 100 mg PO BID 08/23/18 04/01/19 History tablet] Acetaminophen [Acetaminophen 325mg 500 mg PO Q4HP PRN 11/23/18 04/01/19 History tab] Amlodipine Besylate [Norvasc 10mg 10 mg PO DAILY 11/23/18 04/01/19 History tablet] Docusate Sodium [Colace 250mg 250 mg PO BID 11/23/18 04/01/19 History capsule] Fluticasone Propionate [Flonase 1 spr NS DAILY 11/23/18 04/01/19 History 50mcg nasal spray 16gm] Insulin Lispro [Humalog Kwikpen 20 unit SQ AC 11/23/18 04/01/19 History U-100] Isosorbide Mononitrate [Imdur 30mg 30 mg PO DAILY 11/23/18 04/01/19 History ER tablet] Trazodone HCl 100 mg PO HS 03/11/19 04/01/19 History Aspirin [Aspirin 325mg Tab] 325 mg PO BID 03/12/19 04/01/19 History Ergocalciferol (Vitamin D2) 50,000 unit PO TU 03/12/19 04/01/19 History [Vitamin D2] Insulin Glargine,Hum.rec.anlog 35 unit SQ 03/12/19 04/01/19 History [Lantus Insulin 100units/mL 10mL vial] valsartan 80 mg tablet 80 mg PO DAILY 03/23/19 04/01/19 History Carvedilol [Carvedilol 25mg Tab] 25 mg PO BID 04/01/19 04/01/19 History Furosemide [Furosemide 40MG tAB] 40 mg PO BID 04/01/19 04/01/19 History Oxycodone HCl [Oxycodone (IR) 5mg 5 mg PO Q4HP PRN 04/01/19 04/01/19 History Cap] Rivaroxaban [Xarelto] 15 mg PO QPM 04/01/19 04/01/19 History levoFLOXacin [Levaquin 500mg 500 mg PO DAILY 04/01/19 04/01/19 History tab] Allergies Allergy/AdvReac Type Severity Reaction Status Date / Time No Known Allergies Allergy Verified 03/23/19 09:37 Review of Systems - *Cardiovascular Reports shortness of breath, Reports shortness of breath with activity, Denies chest pain - *Respiratory Reports cough, Reports shortness of breath, Reports shortness of breath with activity - *Gastrointestinal Denies abdominal pain, Denies nausea, Denies vomiting - *Genitourinary Denies blood in urine - *Musculoskeletal Reports back pain, Denies joint pain - *Neurologic Denies seizure-like activity Exam Vital signs and Labs for Last 24 Hours: Temp Pulse Resp BP Pulse Ox 98.0 F 102 H 20 156/84 H 94 L 04/01/19 03:54 04/01/19 06:15 04/01/19 03:54 04/01/19 03:54 04/01/19 06:15 Laboratory Results - last 24 hr 04/01/19 00:33: Lactate 1.6 04/01/19 00:42: Specimen Source R radial, O2 % Room air, ABG pH 7.49 H, ABG pCO2 34.8 L, ABG pO2 54.2 L, ABG HCO3 25.7, ABG Total CO2 26.8, ABG O2 Saturation 88 L, ABG Base Excess 2.4 H, Cameron Test Acceptable 04/01/19 01:20: WBC 12.6 H, RBC 3.45 L, Hgb 10.2 L, Hct 32.0 L, MCV 92.8, MCH 29.6, MCHC 31.9, RDW 14.6, Plt Count 333, MPV 7.4, Neut % (Auto) 77.0, Lymph % (Auto) 9.1 L, [place] % (Auto) 7.4, Eos % (Auto) 5.9, Baso % (Auto) 0.6, Neut # (Auto) 9.7 H, Lymph # (Auto) 1.1, [place] # (Auto) 0.9, Eos # (Auto) 0.7 H, Baso # (Auto) 0.1, ESR 109 H 04/01/19 01:20: Sodium 137, Potassium 4.7, Chloride 102, Carbon Dioxide 26, Anion Gap 13.7, BUN 32 H, Creatinine 1.70 H, Estimated Creat Clear 57, Estimated GFR 40 L, Est GFR ( Amer) 48 L, Glucose 173 H, Calcium 8.6, Total Bilirubin 0.4, AST 28, ALT 42, Alkaline Phosphatase 134 H, Troponin I 0.06, C- Reactive Protein 5.6 H, Total Protein 6.8, Albumin 2.2 L, Globulin 4.6 H, Albumin/Globulin Ratio 0.5 L 04/01/19 01:20: B-Natriuretic Peptide 1540 H 04/01/19 01:30: Urine Color Yellow, Urine Appearance Clear, Urine pH 6.0, Ur Specific [place] 1.025, Urine Protein 3+, Urine Glucose (UA) Negative, Urine Ketones Negative, Urine Blood 1+, Urine Nitrate Negative, Urine Bilirubin Negative, Urine Urobilinogen 0.2, Ur Leukocyte Esterase Trace, Urine RBC Occasional, Urine WBC Occasional, Ur Squamous Epith Cells Occasional, Urine Bacteria Trace 04/01/19 06:00: Troponin I 0.04 04/01/19 06:01: POC Glucose 269 H I & O for Last 24 hours: Intake & Output 03/29/19 03/30/19 03/31/19 04/01/19 11:59 11:59 11:59 11:59 Output Total 700 / 700 Balance -700 / -700 Weight 228 lb 3 oz - *Routine HEENT Exam Head: Present: normocephalic Eye: Present: EOMI, PERRL ENT: Present: mucous membranes moist - *Routine Neck Exam Present: supple. Absent: JVD, carotid bruit - *Routine Respiratory Exam Present: decreased breath sounds, rhonchi, diminished air movement. Absent: accessory muscle use, rales, wheezes - *Routine Cardiovascular Exam Present: tachycardia, irregularly irregular. Absent: murmur, gallop, rubs - *Routine Extremities Exam Present: edema. Absent: calf tenderness - *Routine Neurological Exam Present: alert, oriented X3, moving all extremities Assessment and Plan (1) Acute exacerbation of CHF (congestive heart failure) Current visit: Yes Status: Acute Qualifiers: Heart failure type: unspecified Qualified Code(s): I50.9 - Heart failure, unspecified Category: Medical Code(s): I50.9 - Heart failure, unspecified (2) Elevated erythrocyte sedimentation rate Current visit: Yes Status: Acute Category: Medical Code(s): R70.0 - Elevated erythrocyte sedimentation rate (3) HCAP (healthcare-associated pneumonia) Current visit: Yes Status: Acute Category: Medical Code(s): J18.9 - Pneumonia, unspecified organism (4) Obesity (BMI 30-39.9) Current visit: Yes Status: Acute Category: Medical Code(s): E66.9 - Obesity, unspecified (5) Severe sepsis Current visit: Yes Status: Acute Category: Medical Code(s): A41.9 - Seps is, unspecified organism; R65.20 - Severe sepsis without septic shock (6) A-fib Current visit: Yes Status: Chronic Qualifiers: Atrial fibrillation type: paroxysmal Qualified Code(s): I48.0 - Paroxysmal atrial fibrillation Category: Medical Code(s): I48.91 - Unspecified atrial fibrillation (7) Renal insufficiency Current visit: Yes Status: Chronic Category: Medical Code(s): N28.9 - Disorder of kidney and ureter, unspecified (8) Diabetes mellitus, insulin dependent (IDDM), uncontrolled Current visit: No Status: Acute Qualifiers: Glycemic state: with hyperglycemia Qualified Code(s): E10.65 - Type 1 diabetes mellitus with hyperglycemia Category: Medical Code(s): E10.65 - Type 1 diabetes mellitus with hyper glycemia (9) Anemia Current visit: No Status: Chronic Qualifiers: Anemia type: unspecified type Qualified Code(s): D64.9 - Anemia, unspecified Category: Medical Code(s): D64.9 - Anemia, unspecified (10) Ischemic cardiomyopathy Current visit: No Status: Chronic Category: Medical Code(s): I25.5 - Ischemic cardiomyopathy - Assessment and plan all Dx Assessment and Plan for all problems:: 1. Switch Lasix to IV 40 mg twice daily and follow renal status closely 2. Due to recurrent confusion regarding patient's medications, will discontinue Entresto and start valsartan 160 mg daily (substituted with Avapro here in the hospital) 3. Discussion regarding CardioMEMS implantation was again undertaken with patient and he will consider this. 4. In light of the patient's history of ischemic cardiomyopathy and CHF, will discontinue Norvasc to allow more beta-ko and/or ARB therapy. 5. Continue Xarelto for A. fib. 6. No further testing at this time. We will follow with you.
--- NOTE | 2019-04-01 08:16 | Pharmacy Consult Notes ---
- Pharmacy Consult Date: 04/01/19 Time: 08:15 Referring provider: DR. MCKENZIE Reason for Consult:: VANCOMYCIN DOSING Allergies and ADEs:: Allergies Allergy/AdvReac Type Severity Reaction Status Date / Time No Known Allergies Allergy Verified 03/23/19 09:37 Home Medications:: Home Medications Medication Instructions Recorded Confirmed Type ascorbic acid (vitamin C) 500 mg 500 mg PO DAILY tab 10/30/17 04/01/19 History tablet atorvastatin 40 mg tablet 40 mg PO HS 10/30/17 04/01/19 History ferrous sulfate 325 mg (65 mg 325 mg PO Q48H tab 10/30/17 04/01/19 History iron) tablet levothyroxine 50 mcg tablet 50 mcg PO DAILY tab 10/30/17 04/01/19 History Duloxetine HCl [Cymbalta 30mg 60 mg PO DAILY 04/12/18 04/01/19 History capsule] carBAMazepine [Tegretol 100mg 100 mg PO BID 08/23/18 04/01/19 History tablet] Acetaminophen [Acetaminophen 325mg 500 mg PO Q4HP PRN 11/23/18 04/01/19 History tab] Amlodipine Besylate [Norvasc 10mg 10 mg PO DAILY 11/23/18 04/01/19 History tablet] Docusate Sodium [Colace 250mg 250 mg PO BID 11/23/18 04/01/19 History capsule] Fluticasone Propionate [Flonase 1 spr NS DAILY 11/23/18 04/01/19 History 50mcg nasal spray 16gm] Insulin Lispro [Humalog Kwikpen 20 unit SQ AC 11/23/18 04/01/19 History U-100] Isosorbide Mononitrate [Imdur 30mg 30 mg PO DAILY 11/23/18 04/01/19 History ER tablet] Trazodone HCl 100 mg PO HS 03/11/19 04/01/19 History Aspirin [Aspirin 325mg Tab] 325 mg PO BID 03/12/19 04/01/19 History Ergocalciferol (Vitamin D2) 50,000 unit PO TU 03/12/19 04/01/19 History [Vitamin D2] Insulin Glargine,Hum.rec.anlog 35 unit SQ HS 03/12/19 04/01/19 History [Lantus Insulin 100units/mL 10mL vial] valsartan 80 mg tablet 80 mg PO DAILY 03/23/19 04/01/19 History Carvedilol [Carvedilol 25mg Tab] 25 mg PO BID 04/01/19 04/01/19 History Furosemide [Furosemide 40MG tAB] 40 mg PO BID 04/01/19 04/01/19 History Oxycodone HCl [Oxycodone (IR) 5mg 5 mg PO Q4HP PRN 04/01/19 04/01/19 History Cap] Rivaroxaban [Xarelto] 15 mg PO QPM 04/01/19 04/01/19 History levoFLOXacin [Levaquin 500mg 500 mg PO DAILY 04/01/19 04/01/19 History tab] Height: 1.7 m Weight: 103.504 kg Laboratory Results:: Laboratory Results - last 24 hr 04/01/19 00:33: Lactate 1.6 04/01/19 00:42: Specimen Source R radial, O2 % Room air, ABG pH 7.49 H, ABG pCO2 34.8 L, ABG pO2 54.2 L, ABG HCO3 25.7, ABG Total CO2 26.8, ABG O2 Saturation 88 L, ABG Base Excess 2.4 H, Cameron Test Acceptable 04/01/19 01:20: WBC 12.6 H, RBC 3.45 L, Hgb 10.2 L, Hct 32.0 L, MCV 92.8, MCH 29.6, MCHC 31.9, RDW 14.6, Plt Count 333, MPV 7.4, Neut % (Auto) 77.0, Lymph % (Auto) 9.1 L, [place] % (Auto) 7.4, Eos % (Auto) 5.9, Baso % (Auto) 0.6, Neut # (Auto) 9.7 H, Lymph # (Auto) 1.1, [place] # (Auto) 0.9, Eos # (Auto) 0.7 H, Baso # (Auto) 0.1, ESR 109 H 04/01/19 01:20: Sodium 137, Potassium 4.7, Chloride 102, Carbon Dioxide 26, Anion Gap 13.7, BUN 32 H, Creatinine 1.70 H, Estimated Creat Clear 57, Estimated GFR 40 L, Est GFR ( Amer) 48 L, Glucose 173 H, Calcium 8.6, Total Bilirubin 0.4, AST 28, ALT 42, Alkaline Phosphatase 134 H, Troponin I 0.06, C- Reactive Protein 5.6 H, Total Protein 6.8, Albumin 2.2 L, Globulin 4.6 H, Albumin/Globulin Ratio 0.5 L 04/01/19 01:20: B-Natriuretic Peptide 1540 H 04/01/19 01:30: Urine Color Yellow, Urine Appearance Clear, Urine pH 6.0, Ur Specific [place] 1.025, Urine Protein 3+, Urine Glucose (UA) Negative, Urine Ketones Negative, Urine Blood 1+, Urine Nitrate Negative, Urine Bilirubin Negative, Urine Urobilinogen 0.2, Ur Leukocyte Esterase Trace, Urine RBC Occasional, Urine WBC Occasional, Ur Squamous Epith Cells Occasional, Urine Bacteria Trace 04/01/19 06:00: Troponin I 0.04 04/01/19 06:01: POC Glucose 269 H Medical History: Reports:: Arrhythmia, Atrial Fibrillation, Cancer, Cardiomyopathy, Congestive Heart Failure, Coronary Artery Disease, Diabetes Mellitus Type 2, Hyperlipidemia, Hypertension, Internal Pacemaker, Myocardial Infarction, Peripheral Vascular Disease Denies:: Diabetes Mellitus Type 1, MRSA Assessment and Plan - Assessment and plan all Dx Assessment and Plan for all problems:: BASED ON PATIENT FACTORS, RECOMMEND VANCOMYCIN 2 GM IV ONCE, FOLLOWED BY VANCOMYCIN 1750 MG IV Q24H. PHARMACY WILL FOLLOW DAILY AND ADJUST APPROPRIATE.
--- NOTE | 2019-04-01 08:39 | History & Physical Report ---
*Admission Date: 04/01/19 *Chief complaint: sob *History of present illness: this wm who lives at [facility] had been doing ok and developed sudden sob w/o chest pain - he has hx of recurrent a fib and chf - pt with recent pneumonia - he was seen in the ed with fever and abn cxr with elevated wbc - he was admitted with sepsis and hcap and a fib with chf [facility] History I have reviewed the patient's past medical history: Yes Medical History: Reports:: Arrhythmia, Atrial Fibrillation, Cancer, Cardiomyopathy, Congestive Heart Failure, Coronary Artery Disease, Diabetes Mellitus Type 2, Hyperlipidemia, Hypertension, Internal Pacemaker, Myocardial Infarction, Peripheral Vascular Disease Denies:: Diabetes Mellitus Type 1, MRSA *Have you ever received a pneumonia vaccine?: Yes *Have you received a flu vaccine this season?: Yes Other Medical History: Reports: Anemia, Hypothyroidism Laterality Cases: Left: Total Hip Replacement, Other, Bilateral: Tonsillectomy Other Surgeries: Yes: Cardiac Catheterization, Colonoscopy, Coronary Stent, Pacemaker, Other Amputation: No Fractures: Yes - *Social History Educational Level: Completed College Smoking Status: Former smoker Tobacco Type: cigarettes # Packs/Day (cigarettes): 2 #Yrs smoked (if former smoker): 25 Alcohol Intake: never Alcohol Intake Frequency:: other Substance Use Type: denies use *Occupational Status:: unemployed, disabled Housing: [facility] Household Members: none *Travel in the last 8 weeks: None - Psychiatric History Expresses thoughts of harming self/others: None Suicide Plan Description: No Plan Family Hx:: Diabetes Review of Systems - Review of Systems Review of systems:: pertinent systems reviewed and negative unless documented below - Constitutional Reports fever(s), Reports weakness - Eyes Denies change in vision - ENT Denies sore throat - *Cardiovascular Reports shortness of breath, Reports irregular heart rhythm, Denies chest pain at rest - *Respiratory Reports shortness of breath, Denies cough, Denies coughing up blood - *Gastrointestinal Denies abdominal pain - *Genitourinary Denies blood in urine - *Musculoskeletal Denies joint pain - Integumentary/Breasts Denies rash - *Neurologic Denies seizure-like activity - Psychiatric Reports anxiety Meds Home Medications Medication Instructions Recorded Confirmed Type ascorbic acid (vitamin C) 500 mg 500 mg PO DAILY tab 10/30/17 04/01/19 History tablet atorvastatin 40 mg tablet 40 mg PO HS 10/30/17 04/01/19 History ferrous sulfate 325 mg (65 mg 325 mg PO Q48H tab 10/30/17 04/01/19 History iron) tablet levothyroxine 50 mcg tablet 50 mcg PO DAILY tab 10/30/17 04/01/19 History Duloxetine HCl [Cymbalta 30mg 60 mg PO DAILY 04/12/18 04/01/19 History capsule] carBAMazepine [Tegretol 100mg 100 mg PO BID 08/23/18 04/01/19 History tablet] Acetaminophen [Acetaminophen 325mg 500 mg PO Q4HP PRN 11/23/18 04/01/19 History tab] Amlodipine Besylate [Norvasc 10mg 10 mg PO DAILY 11/23/18 04/01/19 History tablet] Docusate Sodium [Colace 250mg 250 mg PO BID 11/23/18 04/01/19 History capsule] Fluticasone Propionate [Flonase 1 spr NS DAILY 11/23/18 04/01/19 History 50mcg nasal spray 16gm] Insulin Lispro [Humalog Kwikpen 20 unit SQ AC 11/23/18 04/01/19 History U-100] Isosorbide Mononitrate [Imdur 30mg 30 mg PO DAILY 11/23/18 04/01/19 History ER tablet] Trazodone HCl 100 mg PO HS 03/11/19 04/01/19 History Aspirin [Aspirin 325mg Tab] 325 mg PO BID 03/12/19 04/01/19 History Ergocalciferol (Vitamin D2) 50,000 unit PO TU 03/12/19 04/01/19 History [Vitamin D2] Insulin Glargine,Hum.rec.anlog 35 unit SQ 03/12/19 04/01/19 History [Lantus Insulin 100units/mL 10mL vial] valsartan 80 mg tablet 80 mg PO DAILY 03/23/19 04/01/19 History Carvedilol [Carvedilol 25mg Tab] 25 mg PO BID 04/01/19 04/01/19 History Furosemide [Furosemide 40MG tAB] 40 mg PO BID 04/01/19 04/01/19 History Oxycodone HCl [Oxycodone (IR) 5mg 5 mg PO Q4HP PRN 04/01/19 04/01/19 History Cap] Rivaroxaban [Xarelto] 15 mg PO QPM 04/01/19 04/01/19 History levoFLOXacin [Levaquin 500mg 500 mg PO DAILY 04/01/19 04/01/19 History tab] Allergies Allergy/AdvReac Type Severity Reaction Status Date / Time No Known Allergies Allergy Verified 03/23/19 09:37 Exam Vital signs and Labs for Last 24 Hours: Temp Pulse Resp BP Pulse Ox 97.9 F 103 H 18 160/85 H 95 04/01/19 07:31 04/01/19 07:31 04/01/19 07:31 04/01/19 07:31 04/01/19 07:31 Laboratory Results - last 24 hr 04/01/19 00:33: Lactate 1.6 04/01/19 00:42: Specimen Source R radial, O2 % Room air, ABG pH 7.49 H, ABG pCO2 34.8 L, ABG pO2 54.2 L, ABG HCO3 25.7, ABG Total CO2 26.8, ABG O2 Saturation 88 L, ABG Base Excess 2.4 H, Cameron Test Acceptable 04/01/19 01:20: WBC 12.6 H, RBC 3.45 L, Hgb 10.2 L, Hct 32.0 L, MCV 92.8, MCH 29.6, MCHC 31.9, RDW 14.6, Plt Count 333, MPV 7.4, Neut % (Auto) 77.0, Lymph % (Auto) 9.1 L, [place] % (Auto) 7.4, Eos % (Auto) 5.9, Baso % (Auto) 0.6, Neut # (Auto) 9.7 H, Lymph # (Auto) 1.1, [place] # (Auto) 0.9, Eos # (Auto) 0.7 H, Baso # (Auto) 0.1, ESR 109 H 04/01/19 01:20: Sodium 137, Potassium 4.7, Chloride 102, Carbon Dioxide 26, Anion Gap 13.7, BUN 32 H, Creatinine 1.70 H, Estimated Creat Clear 57, Estimated GFR 40 L, Est GFR ( Amer) 48 L, Glucose 173 H, Calcium 8.6, Total Bilirubin 0.4, AST 28, ALT 42, Alkaline Phosphatase 134 H, Troponin I 0.06, C- Reactive Protein 5.6 H, Total Protein 6.8, Albumin 2.2 L, Globulin 4.6 H, Albumin/Globulin Ratio 0.5 L 04/01/19 01:20: B-Natriuretic Peptide 1540 H 04/01/19 01:30: Urine Color Yellow, Urine Appearance Clear, Urine pH 6.0, Ur Specific [place] 1.025, Urine Protein 3+, Urine Glucose (UA) Negative, Urine Ketones Negative, Urine Blood 1+, Urine Nitrate Negative, Urine Bilirubin Negative, Urine Urobilinogen 0.2, Ur Leukocyte Esterase Trace, Urine RBC Occasional, Urine WBC Occasional, Ur Squamous Epith Cells Occasional, Urine Bacteria Trace 04/01/19 06:00: Troponin I 0.04 04/01/19 06:01: POC Glucose 269 H I & O for Last 24 hours: Intake & Output 03/29/19 03/30/19 03/31/19 04/01/19 11:59 11:59 11:59 11:59 Intake Total 480 / 480 Output Total 700 / 700 Balance -220 / -220 Weight 228 lb 3 oz - Constitutional no acute distress, obese - *Routine HEENT Exam Head: Present: normocephalic Eye: Present: EOMI, PERRL ENT: Present: mucous membranes dry - *Routine Neck Exam Absent: JVD - *Routine Respiratory Exam Present: decreased breath sounds - *Routine Cardiovascular Exam Present: RRR, murmur, S4 - *Routine Abdominal Exam Present: soft - *Routine Extremities Exam Absent: calf tenderness - *Routine Skin Exam Present: intact - *Routine Neurological Exam Present: alert, oriented X3, CN II-XII intact - Routine Psychiatric Exam Present: normal affect Assessment and Plan (1) Acute exacerbation of CHF (congestive heart failure) Current visit: Yes Status: Acute Qualifiers: Qualified Code(s): I50.9 - Heart failure, unspecified Category: Medical Code(s): I50.9 - Heart failure, unspecified (2) Elevated erythrocyte sedimentation rate Current visit: Yes Status: Acute Category: Medical Code(s): R70.0 - Elevated erythrocyte sedimentation rate (3) HCAP (healthcare-associated pneumonia) Current visit: Yes Status: Acute Category: Medical Code(s): J18.9 - Pneumonia, unspecified organism (4) Obesity (BMI 30-39.9) Current visit: Yes Status: Acute Category: Medical Code(s): E66.9 - Obesity, unspecified (5) Severe sepsis Current visit: Yes Status: Acute Category: Medical Code(s): A41.9 - Sepsis, unspecified organism; R65.20 - Severe sepsis without septic shock (6) A-fib Current visit: Yes Status: Chronic Qualifiers: Qualified Code(s): I48.0 - Paroxysmal atrial fibrillation Category: Medical Code(s): I48.91 - Unspecified atrial fibrillation (7) Renal insufficiency Current visit: Yes Status: Chronic Category: Medical Code(s): N28.9 - Disorder of kidney and ureter, unspecified (8) Diabetes mellitus, insulin dependent (IDDM), uncontrolled Current visit: No Status: Acute Qualifiers: Qualified Code(s): E10.65 - Type 1 diabetes mellitus with hyperglycemia Category: Medical Code(s): E10.65 - Type 1 diabetes mellitus with hyperglycemia (9) Anemia Current visit: No Status: Chronic Qualifiers: Qualified Code(s): D64.9 - Anemia, unspecified Category: Medical Code(s): D64.9 - Anemia, unspecified (10) Ischemic cardiomyopathy Current visit: No Status: Chronic Category: Medical Code(s): I25.5 - Ischemic cardiomyopathy
--- NOTE | 2019-04-02 08:39 | Progress Note ---
Subjective Date: 04/02/19 Time: 08:36 Principal diagnosis: CHF Interval history: 74 yo WM in bedside chair in NAD. Breathing better without chest pain. Pt is agreeable to proceed with CardioMems placement as outpatient. BP improved but not to goal. Exam Vital signs and Labs for Last 24 Hours: Temp Pulse Resp BP Pulse Ox 98.3 F 111 H 20 145/93 H 99 04/02/19 04:00 04/02/19 06:25 04/02/19 04:00 04/02/19 04:00 04/02/19 06:25 Laboratory Results - last 24 hr 04/01/19 10:03: Troponin I 0.03 04/01/19 10:42: POC Glucose 430 H* 04/01/19 16:09: POC Glucose 333 H* 04/01/19 20:33: POC Glucose 287 H 04/02/19 05:56: POC Glucose 224 H I & O for Last 24 hours: Intake & Output 03/30/19 03/31/19 04/01/19 04/02/19 11:59 11:59 11:59 11:59 Intake Total 480 / 480 3182 / 3182 Output Total 700 / 700 4100 / 4100 Balance -220 / -220 -918 / -918 Weight 228 lb 3 oz 235 lb 15 oz Microbiology Reports for the Last 24 Hours: Microbiology 04/01/19 13:45 Sputum - Expectorated Sputum Gram Stain - Final - *Routine Respiratory Exam Present: decreased breath sounds, rhonchi. Absent: accessory muscle use, rales, wheezes - *Routine Cardiovascular Exam Absent: murmur, gallop, rubs - *Routine Extremities Exam Present: edema. Absent: calf tenderness - *Routine Neurological Exam Present: alert, oriented X3, moving all extremities Progress Note: A&P (1) Acute exacerbation of CHF (congestive heart failure) Status: Acute Current Visit: Yes (2) Elevated erythrocyte sedimentation rate Status: Acute Current Visit: Yes (3) HCAP (healthcare-associated pneumonia) Status: Acute Current Visit: Yes (4) Obesity (BMI 30-39.9) Status: Acute Current Visit: Yes (5) Severe sepsis Status: Acute Current Visit: Yes (6) A-fib Status: Chronic Current Visit: Yes (7) Renal insufficiency Status: Chronic Current Visit: Yes (8) Diabetes mellitus, insulin dependent (IDDM), uncontrolled Status: Acute Current Visit: No (9) Anemia Status: Chronic Current Visit: No (10) Ischemic cardiomyopathy Status: Chronic Current Visit: No Assessment and Plan for All Diagnoses:: 1. Increase coreg to 37.5 mg BID for BP and heart rate control. 2. Home cardiac med recommendations: Coreg 37.5 mg BID Digoxin 0.125 mg daily Valsartan 160 mg daily Lasix 40 mg BID Atorvastatin 40 mg daily Xarelto 15 mg daily Imdur 30 mg daily 3. Follow up in our office next week to schedule CardioMems placement and CHF follow up.
--- NOTE | 2019-04-02 08:46 | Discharge Summary ---
General - General Admission date:: 04/01/19 Discharge date: 04/02/19 HPI HPI: this wm who lives at [facility] had been doing ok and developed sudden sob w/o chest pain - he has hx of recurrent a fib and chf - pt with recent pneumonia - he was seen in the ed with fever and abn cxr with elevated wbc - he was admitted with sepsis and hcap and a fib with chf Hospital Course Hospital Course: pt has did better with diuresis and resp treatment with no pain - has chf and was seen by mathieu Howard, treated since 2015 2. HTN A. CHF, recurrent B. Echo, 12/2017, LVEF 45% with distal septum and apical hypokinesis. Mild AI, MR, TR. C. Echo, 04/2018, LVEF 50% with concentric LVH, hypokinesis of inferolateral wall, mild , Moderate MR and mild TR D. Echo, 08/2018, LVEF 40% with moderate to severe MR E. Echo, 11/2018, extremely poor, very difficult study, LVEF 40-45% with hypokinesis in the inferobasal wall. Left atrial size 3.1 cm moderate to severe mitral regurgitation seen. Mild MR and TR. Inadequate for calculation of the right ventricular systolic pressure. 3. Hyperlipidemia, on statin 4. Remote tobacco use 5. 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 Fractured hip, 2017 status post repair A. Left femur fracture after fall, 11/2018 7. Hypothyroidism, on supplement 8. CAD A. NSTEMI, 09/2017 B. Cardiac cath, 09/2017, mild CAD of left main, LAD and RCA with dominant circumflex with mid vessel occlusion. BHARTI to circumflex placed. LVEF 40% with LVEDP 50 mm Hg C. Cardiac cath, 06/2018, 1. The left main artery normal 2. The left anterior descending artery has proximal mild luminal irregularities nothing greater than 10% 3. The circumflex artery is a large dominant vessel with mild 10% luminal irregularities 4. The right coronary artery small vestigial normal 5. The GRIDER ventriculogram reveals normal 65% 6. The left ventricular end-diastolic pressure 20 mmHg 9. History of A. fib, 08/2018, converted with IV medications A. Xarelto therapy 10. Cardiomyopathy, ischemic A. Recurrent CHF related to cardiomyopathy, dietary non-compliance and possible medication discrepancy History of present illness: ear-old white male with history of ischemic cardiomyopathy, recurrent congestive heart failure and atrial fibrillation was admitted for recurrent heart failure with suspected pneumonia. Patient relates some mild exertional shortness of breath over the last few days but nothing too alarming until last evening when he developed acute worsening shortness of breath. Patient was transferred to the ER for further evaluation. He was noted to have a fever, abnormal chest x-ray with suspected pneumonia, elevated BNP of 1340 and chronic congestive heart failure on chest x-ray as well. Patient was admitted for further evaluation. Patient states this a.m. he is breathing a little bit better but still has cough. EKG is tachycardic and appears to be atrial fibrillation. Patient is on Xarelto therapy. Cardiology consulted for evaluation. and 4 yo WM in bedside chair in NAD. Breathing better without chest pain. Pt is agreeable to proceed with CardioMems placement as outpatient. ncrease coreg to 37.5 mg BID for BP and heart rate control. 2. Home cardiac med recommendations: Coreg 37.5 mg BID Digoxin 0.125 mg daily Valsartan 160 mg daily Lasix 40 mg BID Atorvastatin 40 mg daily Xarelto 15 mg daily Imdur 30 mg daily 3. Follow up in our office next week to schedule CardioMems placement and CHF follow up. will follow at [facility] and will cover with abx till cultures Objective Vital signs: Temp Pulse Resp BP Pulse Ox 98.3 F 111 H 20 145/93 H 99 04/02/19 04:00 04/02/19 06:25 04/02/19 04:00 04/02/19 04:00 04/02/19 06:25 no acute distress, obese - *Routine HEENT Exam Head: Present: normocephalic Eye: Present: EOMI, PERRL ENT: Present: mucous membranes dry - *Routine Neck Exam Present: supple - *Routine Respiratory Exam Present: decreased breath sounds - *Routine Cardiovascular Exam Present: RRR, murmur, S4 - *Routine Abdominal Exam Present: soft - *Routine Extremities Exam Absent: calf tenderness - *Routine Skin Exam Present: intact - *Routine Neurological Exam Present: alert, CN II-XII intact - Routine Psychiatric Exam Present: normal affect Results Labs on day of discharge: Labs from last 24 hours 04/02/19 04/01/19 04/01/19 05:56 20:33 16:09 POC Glucose 224 H 287 H 333 H* Troponin I 04/01/19 04/01/19 10:42 10:03 POC Glucose 430 H* Troponin I 0.03 DS: Diagnosis - Discharge Diagnosis (1) Acute exacerbation of CHF (congestive heart failure) Status: Acute (2) Elevated erythrocyte sedimentation rate Status: Acute (3) HCAP (healthcare-associated pneumonia) Status: Acute (4) Obesity (BMI 30-39.9) Status: Acute (5) Severe sepsis Status: Acute (6) A-fib Status: Chronic (7) Renal insufficiency Status: Chronic (8) Diabetes mellitus, insulin dependent (IDDM), uncontrolled Status: Acute (9) Anemia Status: Chronic (10) Ischemic cardiomyopathy Status: Chronic (11) Hypothyroid Status: Acute Discharge Plan - Patient Discharge Instructions ACTIVITY: Continue current activity DIET: continue same diet Patient Instructions: DI for Heart Failure, DI for Pneumonia -- Adult - Follow up Plan Disposition: Home, Self-Snf Medications: Home Medications Medication Instructions Recorded Confirmed Type ascorbic acid (vitamin C) 500 mg 500 mg PO DAILY tab 10/30/17 04/01/19 History tablet atorvastatin 40 mg tablet 40 mg PO HS 10/30/17 04/01/19 History ferrous sulfate 325 mg (65 mg 325 mg PO Q48H tab 10/30/17 04/01/19 History iron) tablet levothyroxine 50 mcg tablet 50 mcg PO DAILY tab 10/30/17 04/01/19 History Duloxetine HCl [Cymbalta 30mg 60 mg PO DAILY 04/12/18 04/01/19 History capsule] carBAMazepine [Tegretol 100mg 100 mg PO BID 08/23/18 04/01/19 History tablet] Acetaminophen [Acetaminophen 325mg 500 mg PO Q4HP PRN 11/23/18 04/01/19 History tab] Amlodipine Besylate [Norvasc 10mg 10 mg PO DAILY 11/23/18 04/01/19 History tablet] Docusate Sodium [Colace 250mg 250 mg PO BID 11/23/18 04/01/19 History capsule] Fluticasone Propionate [Flonase 1 spr NS DAILY 11/23/18 04/01/19 History 50mcg nasal spray 16gm] Insulin Lispro [Humalog Kwikpen 20 unit SQ AC 11/23/18 04/01/19 History U-100] Isosorbide Mononitrate [Imdur 30mg 30 mg PO DAILY 11/23/18 04/01/19 History ER tablet] Trazodone HCl 100 mg PO HS 03/11/19 04/01/19 History Aspirin [Aspirin 325mg Tab] 325 mg PO BID 03/12/19 04/01/19 History Ergocalciferol (Vitamin D2) 50,000 unit PO TU 03/12/19 04/01/19 History [Vitamin D2] Insulin Glargine,Hum.rec.anlog 35 unit SQ HS 03/12/19 04/01/19 History [Lantus Insulin 100units/mL 10mL vial] valsartan 80 mg tablet 80 mg PO DAILY 03/23/19 04/01/19 History Carvedilol [Carvedilol 25mg Tab] 25 mg PO BID 04/01/19 04/01/19 History Furosemide [Furosemide 40MG tAB] 40 mg PO BID 04/01/19 04/01/19 History Oxycodone HCl [Oxycodone (IR) 5mg 5 mg PO Q4HP PRN 04/01/19 04/01/19 History Cap] Rivaroxaban [Xarelto] 15 mg PO QPM 04/01/19 04/01/19 History levoFLOXacin [Levaquin 500mg 500 mg PO DAILY 04/01/19 04/01/19 History tab] Valsartan 160 mg PO DAILY #30 tab 04/02/19 Rx Prescriptions/Medication Reconciliation: New Carvedilol [Coreg 25mg Tablet] 37.5 mg PO BID #60 tablet Carvedilol [Coreg 6.25mg Tablet] 6.25 mg PO HS tablet Digoxin [Digoxin 0.125mg Tablet] 125 mcg PO DAILY #30 tablet Docusate Sodium [Docusate Sodium 100mg Cap] 100 mg PO DAILY capsule Insulin Lispro [HumaLOG 100 units/mL 3mL vial (SSI)] 0 unit SQ ACHS ml Valsartan 160 mg PO DAILY #30 tab Furosemide [Lasix 40mg/4mL vial] 40 mg IV BIDL vial Continued atorvastatin 40 mg tablet 40 mg PO HS ferrous sulfate 325 mg (65 mg iron) tablet 325 mg PO Q48H tab levothyroxine 50 mcg tablet 50 mcg PO DAILY tab ascorbic acid (vitamin C) 500 mg tablet 500 mg PO DAILY tab Duloxetine HCl [Cymbalta 30mg capsule] 60 mg PO DAILY Isosorbide Mononitrate [Imdur 30mg ER tablet] 30 mg PO DAILY Fluticasone Propionate [Flonase 50mcg nasal spray 16gm] 1 spr NS DAILY Acetaminophen [Acetaminophen 325mg tab] 500 mg PO Q4HP PRN PRN Reason: As Needed For Fever Or Pain Docusate Sodium [Colace 250mg capsule] 250 mg PO BID Insulin Glargine,Hum.rec.anlog [Lantus Insulin 100units/mL 10mL vial] 35 unit SQ HS Aspirin [Aspirin 325mg Tab] 325 mg PO BID Rivaroxaban [Xarelto] 15 mg PO QPM levoFLOXacin [Levaquin 500mg tab] 500 mg PO DAILY Oxycodone HCl [Oxycodone (IR) 5mg Cap] 5 mg PO Q4HP PRN PRN Reason: Moderate Pain carBAMazepine [Tegretol 100mg tablet] 100 mg PO BID Insulin Lispro [Humalog Kwikpen U-100] 20 unit SQ AC Trazodone HCl 100 mg PO HS Ergocalciferol (Vitamin D2) [Vitamin D2] 50,000 unit PO TU Furosemide [Furosemide 40MG tAB] 40 mg PO BID Discontinued valsartan 80 mg tablet 80 mg PO DAILY Amlodipine Besylate [Norvasc 10mg tablet] 10 mg PO DAILY Carvedilol [Carvedilol 25mg Tab] 25 mg PO BID
== END 2019-04-02 10:58 ==
LOC: ER 00:34 → 2ND 00:34
PROVIDERS: ADMIT Emergency Medicine; ATTEND Emergency Medicine
DX: C80.1 Malignant (primary) neoplasm, unspecified; Z79.52 Long term (current) use of systemic steroids; Z79.891 Long term (current) use of opiate analgesic; E66.9 Obesity, unspecified; N28.9 Disorder of kidney and ureter, unspecified; Z68.37 Body mass index [BMI] 37.0-37.9, adult; R70.0 Elevated erythrocyte sedimentation rate; I25.5 Ischemic cardiomyopathy; Z79.4 Long term (current) use of insulin; J44.9 Chronic obstructive pulmonary disease, unspecified; I73.9 Peripheral vascular disease, unspecified; Z79.01 Long term (current) use of anticoagulants; Z79.2 Long term (current) use of antibiotics; I25.2 Old myocardial infarction; I50.9 Heart failure, unspecified; E11.9 Type 2 diabetes mellitus without complications; Z87.01 Personal history of pneumonia (recurrent); I11.0 Hypertensive heart disease with heart failure; I25.10 Atherosclerotic heart disease of native coronary artery without angina pectoris; E78.5 Hyperlipidemia, unspecified; Z95.0 Presence of cardiac pacemaker; D64.9 Anemia, unspecified; E03.9 Hypothyroidism, unspecified; J18.9 Pneumonia, unspecified organism; Z79.899 Other long term (current) drug therapy; Z79.82 Long term (current) use of aspirin; I48.0 Paroxysmal atrial fibrillation
CPT/HCPCS: 36415; 71010; 71045; 80053; 81001; 82803; 82962; 83605; 83880; 84484; 85025; 85651; 86140; 87040; 87070; 87205; 93005; 94640; 94761; 96365; 96367; 96374; 96375; 99285; G0378; J2543; J3370

== ENCOUNTER → 2019-05-03 15:19 | Outpatient (POV) | payer MEDICARE, SELFPAY | PROVIDERS: Visit Provider Internal Medicine Nephrology | DX: Z00.00 Encounter for general adult medical examination without abnormal findings (principal) ==

== ENCOUNTER 2019-06-07 16:53 | Inpatient (IN) ==
[2019-06-07 17:00] LABS: ABG Base Excess 0.1 mmol/L (-2.4-2.3); ABG HCO3 24.2 mmhg (22.0-26.0); ABG Oxygen Saturation 86 % (90-100); ABG PCO2 36.6 mmhg (35.0-45.0); ABG PH 7.44 mmol/L (7.35-7.45); ABG TCO2 25.4 mmhg (23-27)
[2019-06-07 17:01] LABS: Allen's Test ACCEPTABLE; Oxygen 36 %
[2019-06-07 17:15] LABS: Basophils % 0.2 % (0.1-2.0); Eosinophils # 0.1 K/mm3 (0.0-0.4); Eosinophils % 0.5 % (0.1-12.0); Hemoglobin 10.4 g/dL (14.1-18.0); Lymphocytes % 6.1 % (10-50); Mean Corpuscular HGB Conc 30.7 g/dL (31.8-35.4); Mean Corpuscular Volume 96.7 fl (80-94); Mean Platelet Volume 7.6 fl (7.4-10.4); Monocytes # 1.6 K/mm3 (0.1-1.0); Monocytes % 9.8 % (1.7-9.3); Neutrophils # 13.1 K/mm3 (1.8-7.8); Neutrophils % 83.3 % (37.0-80.0); Platelet Count 423 K/mm3 (142-424); Red Blood Count 3.51 M/mm3 (4.60-6.20); Red Cell Distribution Width 17.4 % (11.5-17.5); White Blood Count 15.8 K/mm3 (4.8-10.8)
[2019-06-07 17:25] LABS: Anion Gap 14.6 mEq/L (5-15); Calcium 9.1 mg/dL (8.5-10.1)
[2019-06-07 17:32] LABS: Lymphocytes % 1 % (10-50); Monocytes % 12 % (2-9); Neutrophils % 77 % (42-76); RBC Morphology Normal; Total Cells Counted 100
--- NOTE | 2019-06-07 17:46 | Emergency Department Note ---
ED Disposition Clinical Impression: Bilateral pneumonia, COPD (chronic obstructive pulmonary disease), CHF (congestive heart failure), CAD (coronary artery disease), Ischemic cardiomyopathy, Diabetes mellitus, insulin dependent (IDDM), uncontrolled Disposition: Admitted As Inpatient Condition on Discharge: Good Referrals: Provider,Referral, [Primary Care Provider] - Time of Disposition: 18:45 - Critical Care Critical Care Time: No Attestation: On 06/07/19, the high probability of a clinically significant, sudden or life threatening deterioration of the following system(s) required my full and direct attention, intervention and personal management. The time I documented below is in addition to time spent performing reported procedures but includes the following listed in this critical care notation. Medical Decision Making - Medical Records Medical records reviewed: Yes: I reviewed the patient's medical records. - Yogesh Inquiry Pt receiving controlled substance: No Yogesh was queried for this patient: No Vital Signs: 06/07/19 16:34 Temperature 98.1 F Temperature Source Oral Pulse Rate [Right Brachial] 112 H Respiratory Rate 19 Blood Pressure [Right Arm] 112/79 Blood Pressure Mean [Right Arm] 90 Blood Pressure Source [Right Arm] Automatic Cuff Blood Pressure Position [Right Arm] Sitting 02 Sat by Pulse Oximetry 100 Oxygen Delivery Method Room Air - Lab Data Lab results reviewed: Yes: I reviewed the patient's lab results. Lab Results 06/07/19 16:50: WBC 15.8 H, RBC 3.51 L, Hgb 10.4 L, Hct 34.0 L, MCV 96.7 H, MCH 29.7, MCHC 30.7 L, RDW 17.4, Plt Count 423, MPV 7.6, Neut % (Auto) 83.3 H, Lymph % (Auto) 6.1 L, [place] % (Auto) 9.8 H, Eos % (Auto) 0.5, Baso % (Auto) 0.2, Neut # (Auto) 13.1 H, Lymph # (Auto) 1.0, [place] # (Auto) 1.6 H, Eos # (Auto) 0.1, Baso # (Auto) 0.0, Total Counted 100, Neutrophils % (Manual) 77 H, Band Neutrophils % 9.0 H, Lymphocytes % (Manual) 1 L, Atypical Lymphs % 1.0, Monocytes % (Manual) 12 H, Platelet Estimate Normal, RBC Morphology Normal 06/07/19 16:50: Sodium 141, Potassium 3.6, Chloride 104, Carbon Dioxide 26, Anion Gap 14.6, BUN 31 H, Creatinine 1.71 H, Estimated Creat Clear 46, Estimated GFR 39 L, Est GFR ( Amer) 48 L, Glucose 137 H, Calcium 9.1, Troponin I 0.06 06/07/19 16:50: B-Natriuretic Peptide 1070 H 06/07/19 16:50: Lactate 1.4 06/07/19 16:57: Specimen Source Right radial, O2 % 36, ABG pH 7.44, ABG pCO2 36.6, ABG pO2 53.0 L, ABG HCO3 24.2, ABG Total CO2 25.4, ABG O2 Saturation 86 L* , ABG Base Excess 0.1, Cameron Test Acceptable Result diagrams: 06/07/19 16:50 06/07/19 16:50 Orders (Tests/Meds): ED MEDICATIONS Generic Name Dose Route Start Last Admin Trade Name Freq PRN Reason Stop Dose Admin Ceftriaxone Sodium 1 gm/ 50 mls @ 100 mls/hr 06/07/19 18:00 06/07/19 17:58 Sodium Chloride IV 06/21/19 17:59 100 mls/hr Q24H CINDY Administration Protocol Levofloxacin/Dextrose 750 mg in 150 mls @ 100 mls/hr 06/07/19 18:00 06/07/19 18:16 Levofloxacin 750mg/150ml Premix IV 06/21/19 17:59 100 mls/hr Q24H CINDY Administration Protocol Discontinued Medications Generic Name Dose Route Start Last Admin Trade Name Freq PRN Reason Stop Dose Admin Albuterol/Ipratropium 3 ml 06/07/19 17:03 06/07/19 17:06 Duoneb 3ml Neb IH 06/07/19 17:04 3 ml ONCE ONE Administration Furosemide 80 mg 06/07/19 17:46 06/07/19 17:58 Lasix 40mg/4ml Vial IV 06/07/19 17:47 80 mg ONCE ONE Administration Methylprednisolone Sodium Succinate 125 mg 06/07/19 17:03 06/07/19 17:06 Solu-Medrol 125mg/2ml Vial IV 06/07/19 17:04 125 mg ONCE ONE Administration ORDERS Category Date Time Status Blood Culture Stat Micro 06/07/19 16:50 Received - Physician Consults Physician Consulted: davina Time: 18:44 Reason -: Admission, Pt condition General Adult HPI - General Chief complaint: Shortness of Breath/Dyspnea Stated complaint: soa Time Seen by Provider: 06/07/19 17:42 Mode of Arrival: EMS Source of Information: Patient Limitations: No Limitations Description of Symptoms (Recalled from ER Triage Doc. by RN): shortness of air; chronic chf, acute exacerbation - Related Data Home Medications Medication Instructions Recorded Confirmed ascorbic acid (vitamin C) 500 mg 500 mg PO DAILY tab 10/30/17 06/07/19 tablet atorvastatin 40 mg tablet 40 mg PO HS 10/30/17 06/07/19 ferrous sulfate 325 mg (65 mg 325 mg PO Q48H tab 10/30/17 06/07/19 iron) tablet levothyroxine 50 mcg tablet 50 mcg PO DAILY tab 10/30/17 06/07/19 Duloxetine HCl [Cymbalta 30mg 60 mg PO DAILY 04/12/18 06/07/19 capsule] carBAMazepine [Tegretol 100mg 100 mg PO BID 08/23/18 06/07/19 tablet] Acetaminophen [Acetaminophen 325mg 500 mg PO Q4HP PRN 11/23/18 06/07/19 tab] Docusate Sodium [Colace 250mg 250 mg PO BID 11/23/18 06/07/19 capsule] Fluticasone Propionate [Flonase 1 spr NS DAILY 11/23/18 06/07/19 50mcg nasal spray 16gm] Insulin Lispro [Humalog Kwikpen 20 unit SQ AC 11/23/18 06/07/19 U-100] Isosorbide Mononitrate [Imdur 30mg 30 mg PO DAILY 11/23/18 06/07/19 ER tablet] Trazodone HCl 100 mg PO HS 03/11/19 06/07/19 Aspirin [Aspirin 325mg Tab] 325 mg PO BID 03/12/19 06/07/19 Ergocalciferol (Vitamin D2) 50,000 unit PO TU 03/12/19 06/07/19 [Vitamin D2] Insulin Glargine,Hum.rec.anlog 35 unit SQ HS 03/12/19 06/07/19 [Lantus Insulin 100units/mL 10mL vial] Furosemide [Furosemide 40MG tAB] 40 mg PO BID 04/01/19 06/07/19 Oxycodone HCl [Oxycodone (IR) 5mg 5 mg PO Q4HP PRN 04/01/19 06/07/19 Cap] Rivaroxaban [Xarelto 15mg tablet] 15 mg PO QPM 04/01/19 06/07/19 levoFLOXacin [Levaquin 500mg 500 mg PO DAILY 04/01/19 06/07/19 tab] Carvedilol [Coreg 25mg Tablet] 37.5 mg PO BID 05/10/19 06/07/19 Digoxin [Digoxin 0.125mg Tablet] 125 mcg PO DAILY 05/10/19 06/07/19 Docusate Sodium [Docusate Sodium 100 mg PO DAILY 05/10/19 06/07/19 100mg Cap] Valsartan [Valsartan 160mg 160 mg PO DAILY 05/10/19 06/07/19 Tablets] Allergies Allergy/AdvReac Type Severity Reaction Status Date / Time No Known Allergies Allergy Verified 05/04/19 10:41 [facility] History - Hepatitis A Screen Drug use history?: No High risk sexual behaviors?: No History of sexually transmitted infection?: No Currently employed?: No Childcare worker?: No Do you have indoor plumbing?: Yes Do you have electricity?: Yes Attestation statement:: This patient has been screened for Hepatitis A risk factors. I have reviewed the patient's past medical history: Yes Medical History: Reports:: Arrhythmia, Atrial Fibrillation, Cancer, Car diomyopathy, Congestive Heart Failure, Coronary Artery Disease, Diabetes Mellitus Type 2, Hyperlipidemia, Hypertension, Internal Pacemaker, Myocardial Infarction, Peripheral Vascular Disease Denies:: Diabetes Mellitus Type 1, Lung Disease, MRSA, Seizures Other Medical History: Reports: Anemia, Hypothyroidism Laterality Cases: Other Surgeries: Yes: Cardiac Catheterization, Colonoscopy, Coronary Stent, Pacemaker, Other Amputation: No Fractures: Yes - Social History Smoking Status: Former smoker Tobacco Type: cigarettes # Packs/Day (cigarettes): 2 #Yrs smoked (if former smoker): 25 Alcohol Intake: never Alcohol Intake Frequency:: other Substance Use Type: denies use Occupational Status: unemployed, disabled Housing: care home Household Members: none Family Hx:: Diabetes ROS Obtained: Yes All systems reviewed & no additional complaints - Constitutional Constitutional: Reports chills - Cardiovascular Cardiovascular: Denies chest pain, Denies chest pain at rest, Reports diaphoresis, Reports dyspnea, Reports dyspnea on exertion - Respiratory Respiratory: Yes chest congestion, Yes cough, Yes dyspnea - Gastrointestinal Gastrointestingal: Denies: abdominal pain - Integumentary/Breasts Skin/Breast: Reports skin swelling, Reports other (10 lb weight gain at [place]) Physical Exam - General General appearance: alert - Eye Eye exam: Present: normal appearance, PERRL, EOMI - ENT ENT exam: Present: normal exam, normal oropharynx, mucous membranes moist, TM's normal bilaterally, normal external ear exam - Neck Neck exam: Present: normal inspection, full ROM, trachea midline. Absent: menin gismus, lymphadenopathy - Respiratory Respiratory exam: Present: respiratory distress, other (rhonchi througout). Absent: normal lung sounds bilaterally - Cardiovascular Cardiovascular exam: Present: normal rhythm, tachycardia - Abdominal Exam Abdominal exam: Present: soft, normal bowel sounds. Absent: distention, tenderness, guarding - Extremities Exam Extremities exam: Present: normal inspection, full ROM, normal capillary refill. Absent: calf tenderness - Back Exam Back exam: Present: normal inspection - Neurological Exam Neurological exam: Present: alert, oriented X3 - Psychiatric Psychiatric exam: Present: normal affect - Skin Skin exam: Present: warm, dry, intact, normal color
[2019-06-08 06:56] LABS: Anion Gap 14.7 mEq/L (5-15); Calcium 8.3 mg/dL (8.5-10.1)
[2019-06-08 07:15] LABS: Basophils % 0.1 % (0.1-2.0); Eosinophils % 0.1 % (0.1-12.0); Hematocrit 30.8 % (42.0-52.0); Hemoglobin 9.5 g/dL (14.1-18.0); Lymphocytes # 0.6 K/mm3 (0.7-4.5); Lymphocytes % 4.6 % (10-50); Mean Corpuscular HGB Conc 30.8 g/dL (31.8-35.4); Mean Corpuscular Volume 97.9 fl (80-94); Mean Platelet Volume 7.7 fl (7.4-10.4); Monocytes # 0.8 K/mm3 (0.1-1.0); Monocytes % 5.7 % (1.7-9.3); Neutrophils # 12.5 K/mm3 (1.8-7.8); Neutrophils % 89.5 % (37.0-80.0); Platelet Count 363 K/mm3 (142-424); Red Blood Count 3.15 M/mm3 (4.60-6.20); Red Cell Distribution Width 17.3 % (11.5-17.5)
--- NOTE | 2019-06-08 07:50 | Pharmacy Consult Notes ---
[facility] Pharmacy VTE Monitoring - Patient Demographics Admission date: 06/07/19 Report Date: 06/08/19 Time: 07:50 Allergies/Adverse Reactions: Patient Allergies No Known Allergies Allergy (Verified 05/04/19 10:41) Height: 1.73 m Weight: 101.775 kg Patient Problems: Current Active Problems Bilateral pneumonia (Acute) CHF (congestive heart failure) (Acute) COPD (chronic obstructive pulmonary disease) (Acute) Diabetes mellitus, insulin dependent (IDDM), uncontrolled (Chronic) CAD (coronary artery disease) (Chronic) Ischemic cardiomyopathy (Chronic) - VTE Risk Labs: VTE Related Lab Results Hgb 9.5 g/dL (14.1-18.0) L 06/08/19 06:23 Hct 30.8 % (42.0-52.0) L 06/08/19 06:23 Plt Count 363 K/mm3 (142-424) 06/08/19 06:23 BUN 30 mg/dL (7-18) H 06/08/19 06:23 Creatinine 1.73 mg/dL (0.70-1.30) H 06/08/19 06:23 Estimated Creat Clear 55 mL/min (50-200) 06/08/19 06:23 Was VTE Risk Assessment Performed: Yes VTE Score: 7 VTE Risk Level: Moderate Risk - Prophylaxis VTE Prophylaxis Ordered?: Yes Types of VTE Prophylaxis: Pharmacological Pharmacologic Type: Other (XARELTO) - VTE Diagnosis Confirmed Treatment or plan recommended: Continue Current Treatment
[2019-06-08 08:19] LABS: Lymphocytes % 4 % (10-50); Monocytes % 5 % (2-9); Neutrophils % 86 % (42-76); Total Cells Counted 100
--- NOTE | 2019-06-08 08:32 | History & Physical Report ---
*Admission Date: 06/07/19 *Chief complaint: soa *History of present illness: 74-year-old male presents to the ER with complaints of shortness of breath and weakness that has been gradually becoming worse but yesterday was unable to catch his breath. At the halfway his oxygen saturation was 86% on 4 L na bee cannula. Patient was admitted for right lower lobe pneumonia. History of congestive heart failure BNP was over thousand. Will have cardiology consult. Will have speech eval at bedside to rule out aspiration. Will change antibiotics to healthcare acquired. Will change p.o. Lasix to IV Lasix. Obtain echo [facility] History I have reviewed the patient's past medical history: Yes Medical History: Reports:: Arrhythmia, Atrial Fibrillation, Cancer, Cardiomyopathy, Congestive Heart Failure, Coronary Artery Disease, Diabetes Mellitus Type 2, Hyperlipidemia, Hypertension, Internal Pacemaker, Myocardial Infarction, Peripheral Vascular Disease Denies:: Diabetes Mellitus Type 1, Lung Disease, MRSA, Seizures *Have you ever received a pneumonia vaccine?: Yes *Have you received a flu vaccine this season?: Yes Other Medical History: Reports: Anemia, Hypothyroidism Laterality Cases: Left: Total Hip Replacement, Other, Bilateral: Tonsillectomy Other Surgeries: Yes: Cardiac Catheterization, Colonoscopy, Coronary Stent, Pacemaker, Other Amputation: No Fractures: Yes - *Social History Educational Level: Attended College Smoking Status: Former smoker Tobacco Type: cigarettes # Packs/Day (cigarettes): 2 #Yrs smoked (if former smoker): 25 Alcohol Intake: never Alcohol Intake Frequency:: other Substance Use Type: denies use *Occupational Status:: unemployed, disabled Housing: halfway Household Members: other *Travel in the last 8 weeks: None - Psychiatric History Expresses thoughts of harming self/others: None Suicide Plan Description: No Plan Family Hx:: Diabetes Review of Systems - Review of Systems Review of systems:: pertinent systems reviewed and negative unless documented below - Constitutional Reports fatigue, Denies fever(s) - Eyes Denies change in vision - ENT Denies nose pain - *Cardiovascular Reports shortness of breath, Denies excessive sweating, Denies generalized swelling - *Respiratory Reports chest congestion, Reports cough, Reports shortness of breath, Reports shortness of breath with activity - *Gastrointestinal Denies nausea, Denies vomiting - *Genitourinary Denies urinary frequency - *Musculoskeletal Denies joint pain, Denies limited joint movement - Integumentary/Breasts Denies rash - *Neurologic Reports weakness, Denies dizziness - Psychiatric Denies anxiety - Endocrine Denies excessive sweating, Denies flushing - Hematologic/Lymphatic Denies enlarged lymph nodes - Allergic/Immunologic Denies itchy eyes, Denies throat swelling Meds Home Medications Medication Instructions Recorded Confirmed Type ascorbic acid (vitamin C) 500 mg 500 mg PO DAILY tab 10/30/17 06/07/19 History tablet atorvastatin 40 mg tablet 40 mg PO HS 10/30/17 06/07/19 History ferrous sulfate 325 mg (65 mg 325 mg PO Q48H tab 10/30/17 06/07/19 History iron) tablet levothyroxine 50 mcg tablet 50 mcg PO DAILY tab 10/30/17 06/07/19 History Duloxetine HCl [Cymbalta 30mg 60 mg PO DAILY 04/12/18 06/07/19 History capsule] carBAMazepine [Tegretol 100mg 100 mg PO BID 08/23/18 06/07/19 History tablet] Acetaminophen [Acetaminophen 325mg 500 mg PO Q4HP PRN 11/23/18 06/07/19 History tab] Docusate Sodium [Colace 250mg 250 mg PO BID 11/23/18 06/07/19 History capsule] Fluticasone Propionate [Flonase 1 spr NS DAILY 11/23/18 06/07/19 History 50mcg nasal spray 16gm] Insulin Lispro [Humalog Kwikpen 20 unit SQ AC 11/23/18 06/07/19 History U-100] Isosorbide Mononitrate [Imdur 30mg 30 mg PO DAILY 11/23/18 06/07/19 History ER tablet] Trazodone HCl 100 mg PO HS 03/11/19 06/07/19 History Aspirin [Aspirin 325mg Tab] 325 mg PO BID 03/12/19 06/07/19 History Ergocalciferol (Vitamin D2) 50,000 unit PO TU 03/12/19 06/07/19 History [Vitamin D2] Insulin Glargine,Hum.rec.anlog 35 unit SQ HS 03/12/19 06/07/19 History [Lantus Insulin 100units/mL 10mL vial] Furosemide [Furosemide 40MG tAB] 40 mg PO BID 04/01/19 06/07/19 History Oxycodone HCl [Oxycodone (IR) 5mg 5 mg PO Q4HP PRN 04/01/19 06/07/19 History Cap] Rivaroxaban [Xarelto 15mg tablet] 15 mg PO QPM 04/01/19 06/07/19 History Carvedilol [Coreg 25mg Tablet] 37.5 mg PO BID 05/10/19 06/07/19 History Digoxin [Digoxin 0.125mg Tablet] 125 mcg PO DAILY 05/10/19 06/07/19 History Valsartan [Valsartan 160mg 160 mg PO DAILY 05/10/19 06/07/19 History Tablets] Amlodipine Besylate 10 mg PO DAILY 06/07/19 06/07/19 History Carboxymethylcellulose Sodium 1 each OP Q12H 06/07/19 06/07/19 History [Thera Tears] Allergies Allergy/AdvReac Type Severity Reaction Status Date / Time No Known Allergies Allergy Verified 05/04/19 10:41 Exam Vital signs and Labs for Last 24 Hours: Temp Pulse Resp BP Pulse Ox 98.0 F 100 H 19 164/85 H 90 L 06/08/19 04:00 06/08/19 06:01 06/08/19 04:00 06/08/19 04:00 06/08/19 06:01 Laboratory Results - last 24 hr 06/07/19 16:50: WBC 15.8 H, RBC 3.51 L, Hgb 10.4 L, Hct 34.0 L, MCV 96.7 H, MCH 29.7, MCHC 30.7 L, RDW 17.4, Plt Count 423, MPV 7.6, Neut % (Auto) 83.3 H, Lymph % (Auto) 6.1 L, [place] % (Auto) 9.8 H, Eos % (Auto) 0.5, Baso % (Auto) 0.2, Neut # (Auto) 13.1 H, Lymph # (Auto) 1.0, [place] # (Auto) 1.6 H, Eos # (Auto) 0.1, Baso # (Auto) 0.0, Total Counted 100, Neutrophils % (Manual) 77 H, Band Neutrophils % 9.0 H, Lymphocytes % (Manual) 1 L, Atypical Lymphs % 1.0, Monocytes % (Manual) 12 H, Platelet Estimate Normal, RBC Morphology Normal 06/07/19 16:50: Sodium 141, Potassium 3.6, Chloride 104, Carbon Dioxide 26, Anion Gap 14.6, BUN 31 H, Creatinine 1.71 H, Estimated Creat Clear 46, Estimated GFR 39 L, Est GFR ( Amer) 48 L, Glucose 137 H, Calcium 9.1, Troponin I 0.06 06/07/19 16:50: B-Natriuretic Peptide 1070 H 06/07/19 16:50: Lactate 1.4 06/07/19 16:57: Specimen Source Right radial, O2 % 36, ABG pH 7.44, ABG pCO2 36.6, ABG pO2 53.0 L, ABG HCO3 24.2, ABG Total CO2 25.4, ABG O2 Saturation 86 L* , ABG Base Excess 0.1, Cameron Test Acceptable 06/07/19 21:08: POC Glucose 137 H 06/08/19 05:40: POC Glucose 278 H 06/08/19 06:23: WBC 14.0 H, RBC 3.15 L, Hgb 9.5 L, Hct 30.8 L, MCV 97.9 H, MCH 30.1, MCHC 30.8 L, RDW 17.3, Plt Count 363, MPV 7.7, Neut % (Auto) 89.5 H, Lymph % (Auto) 4.6 L, [place] % (Auto) 5.7, Eos % (Auto) 0.1, Baso % (Auto) 0.1, Neut # (Auto) 12.5 H, Lymph # (Auto) 0.6 L, [place] # (Auto) 0.8, Eos # (Auto) 0.0, Baso # (Auto) 0.0, Total Counted 100, Neutrophils % (Manual) 86 H, Band Neutrophils % 5.0, Lymphocytes % (Manual) 4 L, Monocytes % (Manual) 5, Platelet Estimate Normal 06/08/19 06:23: Sodium 138, Potassium 3.7, Chloride 103, Carbon Dioxide 24, Anion Gap 14.7, BUN 30 H, Creatinine 1.73 H, Estimated Creat Clear 55, Estimated GFR 39 L, Est GFR ( Amer) 47 L, Glucose 267 H D, Calcium 8.3 L I & O for Last 24 hours: Intake & Output 06/05/19 06/06/19 06/07/19 06/08/19 11:59 11:59 11:59 11:59 Intake Total 890 / 890 Balance 890 / 890 Weight 224 lb 6 oz - Constitutional no acute distress, obese - *Routine HEENT Exam Head: Present: normocephalic Eye: Present: PERRL ENT: Present: mucous membranes moist - *Routine Neck Exam Present: supple, full ROM. Absent: lymphadenopathy - *Routine Respiratory Exam Present: decreased breath sounds, rhonchi, crackles - *Routine Cardiovascular Exam Present: tachycardia - *Routine Abdominal Exam Present: soft, normoactive bowel sounds. Absent: tenderness - *Routine Extremities Exam Present: full ROM. Absent: cyanosis, clubbing, edema - *Routine Skin Exam Present: warm. Absent: rash Comments: scattered scabs thoughtout legs and arms - *Routine Neurological Exam Present: alert, oriented X3 - Routine Psychiatric Exam Present: normal affect Assessment and Plan (1) CHF (congestive heart failure) Current visit: Yes Status: Acute Qualifiers: Heart failure type: unspecified Heart failure chronicity: acute on chronic Qualified Code(s): I50.9 - Heart failure, unspecified Category: Medical Code(s): I50.9 - Heart failure, unspecified (2) CAD (coronary artery disease) Current visit: Yes Status: Chronic Qualifiers: Coronary Disease-Associated Artery/Lesion type: [place] artery [place] vs. transplanted heart: [place] heart Associated angina: without angina Qualified Code(s): I25.10 - Atherosclerotic heart disease of [place] coronary artery without angina pectoris Category: Medical Code(s): I25.10 - Atherosclerotic heart disease of [place] coronary artery without angina pectoris (3) Diabetes mellitus, insulin dependent (IDDM), uncontrolled Current visit: Yes Status: Chronic Qualifiers: Glycemic state: with hyperglycemia Qualified Code(s): E10.65 - Type 1 diabetes mellitus with hyperglycemia Category: Medical Code(s): E10.65 - Type 1 diabetes mellitus with hyperglycemia (4) HCAP (healthcare-associated pneumonia) Current visit: No Status: Acute Category: Medical Code(s): J18.9 - Pneumonia, unspecified organism (5) Obesity (BMI 30-39.9) Current visit: No Status: Acute Category: Medical Code(s): E66.9 - Obesity, unspecified - Assessment and plan all Dx Assessment and Plan for all problems:: Rounded with Dr. Vazquez all orders per George
--- NOTE | 2019-06-08 09:14 | Consult Report ---
History of Present Illness Consult date: 06/08/19 Requesting physician: Dave Vazquez Consult reason: shortness of breath Chief complaint: SOA Additional Medical History:: 1. DM, treated since 2015 2. HTN A. CHF, recurrent B. Echo, 12/2017, LVEF 45% with distal septum and apical hypokinesis. Mild AI, MR, TR. C. Echo, 04/2018, LVEF 50% with concentric LVH, hypokinesis of inferolateral wall, mild , Moderate MR and mild TR D. Echo, 08/2018, LVEF 40% with moderate to severe MR E. Echo, 11/2018, extremely poor, very difficult study, LVEF 40-45% with hypokinesis in the inferobasal wall. Left atrial size 3.1 cm moderate to severe mitral regurgitation seen. Mild MR and TR. Inadequate for calculation of the right ventricular systolic pressure. F. Echo, 02/2019, Difficult study, LAE, normal LV size with mild conc LVH, EF 40-45% without wall motion abnormality. Mild STEFFI and RVE with pacemaker lead noted. Thickened and calcified aortic valve without aortic stenosis. Moderate MR and TR. 3. Hyperlipidemia, on statin 4. Remote tobacco use 5. 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 Fractured hip, 2017 status post repair A. Left femur fracture after fall, 11/2018 7. Hypothyroidism, on supplement 8. CAD A. NSTEMI, 09/2017 B. Cardiac cath, 09/2017, mild CAD of left main, LAD and RCA with dominant circumflex with mid vessel occlusion. BHARTI to circumflex placed. LVEF 40% with LVEDP 50 mm Hg C. Cardiac cath, 06/2018, 1. The left main artery normal 2. The left anterior descending artery has proximal mild luminal irregularities nothing greater than 10% 3. The circumflex artery is a large dominant vessel with mild 10% luminal irregularities 4. The right coronary artery small vestigial normal 5. The GRIDER ventriculogram reveals normal 65% 6. The left ventricular end-diastolic pressure 20 mmHg 9. History of A. fib, 08/2018, converted with IV medications but now chronic A. Xarelto therapy 10. Cardiomyopathy, ischemic A. Recurrent CHF related to cardiomyopathy, dietary non-compliance and possible medication discrepancy 11. Chronic anemia with Hgb around 9-10 12. CKD, stage 3 with Cr 1.7 and GFR 39 History of present illness: 74-year-old male presents to the ER with complaints of shortness of breath and weakness that has been gradually becoming worse but yesterday was unable to catch his breath. At the intermediate his oxygen saturation was 86% on 4 L nasal cannula. Patient was admitted for right lower lobe pneumonia. History of congestive heart failure BNP was over thousand. Will have cardiology consult. Will have speech eval at bedside to rule out aspiration. Will change antibiotics to healthcare acquired. Will change p.o. Lasix to IV Lasix. Obtain echo The above per BRANDYN Calvert Pt was hospitalized in 03/2019 for similar scenario and was willing to proceed with outpatient placement of CardioMEMS device to monitor CHF. He later changed his mind. [facility] History Medical History: Reports:: Arrhythmia, Atrial Fibrillation, Cancer, Cardiomyopathy, Congestive Heart Failure, Coronary Artery Disease, Diabetes Mellitus Type 2, Hyperlipidemia, Hypertension, Internal Pacemaker, Myocardial Infarction, Peripheral Vascular Disease Denies:: Diabetes Mellitus Type 1, Lung Disease, MRSA, Seizures *Have you ever received a pneumonia vaccine?: Yes *Have you received a flu vaccine this season?: Yes Other Medical History: Reports: Anemia, Hypothyroidism Laterality Cases: Left: Total Hip Replacement, Other, Bilateral: Tonsillectomy Other Surgeries: Yes: Cardiac Catheterization, Colonoscopy, Coronary Stent, Pacemaker, Other Amputation: No Fractures: Yes - *Social History Educational Level: Attended College Smoking Status: Former smoker Tobacco Type: cigarettes # Packs/Day (cigarettes): 2 #Yrs smoked (if former smoker): 25 Alcohol Intake: never Alcohol Intake Frequency:: other Substance Use Type: denies use *Occupational Status:: unemployed, disabled Housing: intermediate Household Members: other *Travel in the last 8 weeks: None - Psychiatric History Expresses thoughts of harming self/others: None Suicide Plan Description: No Plan Family Hx:: Diabetes Meds Home Medications Medication Instructions Recorded Confirmed Type ascorbic acid (vitamin C) 500 mg 500 mg PO DAILY tab 10/30/17 06/07/19 History tablet atorvastatin 40 mg tablet 40 mg PO HS 10/30/17 06/07/19 History ferrous sulfate 325 mg (65 mg 325 mg PO Q48H tab 10/30/17 06/07/19 History iron) tablet levothyroxine 50 mcg tablet 50 mcg PO DAILY tab 10/30/17 06/07/19 History Duloxetine HCl [Cymbalta 30mg 60 mg PO DAILY 04/12/18 06/07/19 History capsule] carBAMazepine [Tegretol 100mg 100 mg PO BID 08/23/18 06/07/19 History tablet] Acetaminophen [Acetaminophen 325mg 500 mg PO Q4HP PRN 11/23/18 06/07/19 History tab] Docusate Sodium [Colace 250mg 250 mg PO BID 11/23/18 06/07/19 History capsule] Fluticasone Propionate [Flonase 1 spr NS DAILY 11/23/18 06/07/19 History 50mcg nasal spray 16gm] Insulin Lispro [Humalog Kwikpen 20 unit SQ AC 11/23/18 06/07/19 History U-100] Isosorbide Mononitrate [Imdur 30mg 30 mg PO DAILY 11/23/18 06/07/19 History ER tablet] Trazodone HCl 100 mg PO HS 03/11/19 06/07/19 History Aspirin [Aspirin 325mg Tab] 325 mg PO BID 03/12/19 06/07/19 History Ergocalciferol (Vitamin D2) 50,000 unit PO TU 03/12/19 06/07/19 History [Vitamin D2] Insulin Glargine,Hum.rec.anlog 35 unit SQ 03/12/19 06/07/19 History [Lantus Insulin 100units/mL 10mL vial] Furosemide [Furosemide 40MG tAB] 40 mg PO BID 04/01/19 06/07/19 History Oxycodone HCl [Oxycodone (IR) 5mg 5 mg PO Q4HP PRN 04/01/19 06/07/19 History Cap] Rivaroxaban [Xarelto 15mg tablet] 15 mg PO QPM 04/01/19 06/07/19 History Carvedilol [Coreg 25mg Tablet] 37.5 mg PO BID 05/10/19 06/07/19 History Digoxin [Digoxin 0.125mg Tablet] 125 mcg PO DAILY 05/10/19 06/07/19 History Valsartan [Valsartan 160mg 160 mg PO DAILY 05/10/19 06/07/19 History Tablets] Amlodipine Besylate 10 mg PO DAILY 06/07/19 06/07/19 History Carboxymethylcellulose Sodium 1 each OP Q12H 06/07/19 06/07/19 History [Thera Tears] Allergies Allergy/AdvReac Type Severity Reaction Status Date / Time No Known Allergies Allergy Verified 05/04/19 10:41 Review of Systems - *Cardiovascular Reports shortness of breath, Reports shortness of breath with activity, Denies chest pain - *Respiratory Reports cough, Reports shortness of breath, Reports shortness of breath with activity - *Gastrointestinal Denies abdominal pain, Denies nausea, Denies vomiting - *Genitourinary Denies blood in urine - *Musculoskeletal Reports joint pain, Reports back pain - *Neurologic Reports weakness, Denies dizziness Exam Vital signs and Labs for Last 24 Hours: Temp Pulse Resp BP Pulse Ox 98.8 F 71 24 140/69 97 06/08/19 08:00 06/08/19 09:07 06/08/19 08:00 06/08/19 08:00 06/08/19 08:00 Laboratory Results - last 24 hr 06/07/19 16:50: WBC 15.8 H, RBC 3.51 L, Hgb 10.4 L, Hct 34.0 L, MCV 96.7 H, MCH 29.7, MCHC 30.7 L, RDW 17.4, Plt Count 423, MPV 7.6, Neut % (Auto) 83.3 H, Lymph % (Auto) 6.1 L, [place] % (Auto) 9.8 H, Eos % (Auto) 0.5, Baso % (Auto) 0.2, Neut # (Auto) 13.1 H, Lymph # (Auto) 1.0, [place] # (Auto) 1.6 H, Eos # (Auto) 0.1, Baso # (Auto) 0.0, Total Counted 100, Neutrophils % (Manual) 77 H, Band Neutrophils % 9.0 H, Lymphocytes % (Manual) 1 L, Atypical Lymphs % 1.0, Monocytes % (Manual) 12 H, Platelet Estimate Normal, RBC Morphology Normal 06/07/19 16:50: Sodium 141, Potassium 3.6, Chloride 104, Carbon Dioxide 26, Anion Gap 14.6, BUN 31 H, Creatinine 1.71 H, Estimated Creat Clear 46, Estimated GFR 39 L, Est GFR ( Amer) 48 L, Glucose 137 H, Calcium 9.1, Troponin I 0.06 06/07/19 16:50: B-Natriuretic Peptide 1070 H 06/07/19 16:50: Lactate 1.4 06/07/19 16:57: Specimen Source Right radial, O2 % 36, ABG pH 7.44, ABG pCO2 36.6, ABG pO2 53.0 L, ABG HCO3 24.2, ABG Total CO2 25.4, ABG O2 Saturation 86 L* , ABG Base Excess 0.1, Cameron Test Acceptable 06/07/19 21:08: POC Glucose 137 H 06/08/19 05:40: POC Glucose 278 H 06/08/19 06:23: WBC 14.0 H, RBC 3.15 L, Hgb 9.5 L, Hct 30.8 L, MCV 97.9 H, MCH 30.1, MCHC 30.8 L, RDW 17.3, Plt Count 363, MPV 7.7, Neut % (Auto) 89.5 H, Lymph % (Auto) 4.6 L, [place] % (Auto) 5.7, Eos % (Auto) 0.1, Baso % (Auto) 0.1, Neut # (Auto) 12.5 H, Lymph # (Auto) 0.6 L, [place] # (Auto) 0.8, Eos # (Auto) 0.0, Baso # (Auto) 0.0, Total Counted 100, Neutrophils % (Manual) 86 H, Band Neutrophils % 5.0, Lymphocytes % (Manual) 4 L, Monocytes % (Manual) 5, Platelet Estimate Normal 06/08/19 06:23: Sodium 138, Potassium 3.7, Chloride 103, Carbon Dioxide 24, Anion Gap 14.7, BUN 30 H, Creatinine 1.73 H, Estimated Creat Clear 55, Estimated GFR 39 L, Est GFR ( Amer) 47 L, Glucose 267 H D, Calcium 8.3 L I & O for Last 24 hours: Intake & Output 06/05/19 06/06/19 06/07/19 06/08/19 11:59 11:59 11:59 11:59 Intake Total 890 / 890 Balance 890 / 890 Weight 224 lb 6 oz - *Routine HEENT Exam Head: Present: normocephalic Eye: Present: EOMI, PERRL ENT: Present: mucous membranes moist - *Routine Neck Exam Present: supple. Absent: JVD, carotid bruit - *Routine Respiratory Exam Present: decreased breath sounds, rhonchi, diminished air movement. Absent: accessory muscle use, rales, wheezes - *Routine Cardiovascular Exam Present: murmur, irregularly irregular. Absent: gallop, rubs - *Routine Abdominal Exam Present: soft. Absent: tenderness, distended, guarding - *Routine Extremities Exam Present: edema. Absent: calf tenderness - *Routine Neurological Exam Present: alert, oriented X3, moving all extremities Assessment and Plan (1) CHF (congestive heart failure) Current visit: Yes Status: Acute Qualifiers: Heart failure type: unspecified Heart failure chronicity: acute on chronic Qualified Code(s): I50.9 - Heart failure, unspecified Category: Medical Code(s): I50.9 - Heart failure, unspecified (2) CAD (coronary artery disease) Current visit: Yes Status: Chronic Qualifiers: Coronary Disease-Associated Artery/Lesion type: [place] artery [place] vs. transplanted heart: [place] heart Associated angina: without angina Qualified Code(s): I25.10 - Atherosclerotic heart disease of [place] coronary artery without angina pectoris Category: Medical Code(s): I25.10 - Atherosclerotic heart disease of [place] coronary artery without angina pectoris (3) Diabetes mellitus, insulin dependent (IDDM), uncontrolled Current visit: Yes Status: Chronic Qualifiers: Glycemic state: with hyperglycemia Qualified Code(s): E10.65 - Type 1 diabetes mellitus with hyperglycemia Category: Medical Code(s): E10.65 - Type 1 diabetes mellitus with hyperglycemia (4) HCAP (healthcare-associated pneumonia) Current visit: No Status: Acute Category: Medical Code(s): J18.9 - Pneumonia, unspecified organism (5) Obesity (BMI 30-39.9) Current visit: No Status: Acute Category: Medical Code(s): E66.9 - Obesity, unspecified (6) COPD (chronic obstructive pulmonary disease) Current visit: Yes Status: Acute Category: Medical Code(s): J44.9 - Chronic obstructive pulmonary disease, unspecified (7) Ischemic cardiomyopathy Current visit: Yes Status: Chronic Category: Medical Code(s): I25.5 - Ischemic cardiomyopathy (8) A-fib Current visit: No Status: Chronic Qualifiers: Atrial fibrillation type: paroxysmal Qualified Code(s): I48.0 - Paroxysmal atrial fibrillation Category: Medical Code(s): I48.91 - Unspecified atrial fibrillation - Assessment and plan all Dx Assessment and Plan for all problems:: 1. Agree with switching to IV lasix for CHF. Follow I/O and renal status closely. 2. Discussed CardioMEMS device and pt relates he is willing to have it implanted after current hospitalization. 3. Will stop IVF and reduce ASA to 81 mg daily. 4. Antibiotics per Dr. Vazquez.
--- NOTE | 2019-06-08 17:08 | Electrocardiograph Report ---
APPROVED REPORT Exam: Resting ECG HR:97 bpm ECG Measurements Heart Rate 97 AXES QRSd 104 QRS -51 QT 342 T125 QTc 434 <Conclusion> Atrial fibrillation Left axis deviation LAHB Marked ST abnormality, possible lateral subendocardial injury Abnormal ECG Electronically signed by : Zana Kaplan, 06/08/2019 17:07:57
--- NOTE | 2019-06-09 09:34 | Progress Note ---
Subjective Date: 06/09/19 Time: 09:15 Principal diagnosis: CHF Interval history: This is a 74-year-old white male who was admitted to the hospital with shortness of breath and weakness. The patient was found to have right upper and lower lobe pneumonia as well as an acute exacerbation of his diastolic congestive heart failure. The patient is being diuresed with IV Lasix. He did have a positive fluid balance of over 800 mL yesterday despite his IV fluids being disc ontinued. He states that his shortness of breath is better. He denies any lower extremity edema. He denies any chest pain or pressure. He denies any fever, chills, nausea, vomiting, diarrhea. He does state that his shortness of breath is associated with orthopnea, as he is unable to lie flat. However he does state that he is feeling much better. He is having some issues with constipation and states he has been drinking a lot of fluid to help his bowels move. The patient has agreed to a CardioMEMS placement on an outpatient basis to monitor his congestive heart failure. His echocardiogram is still pending. Exam Vital signs and Labs for Last 24 Hours: Temp Pulse Resp BP Pulse Ox 97.6 F 88 21 139/71 97 06/09/19 04:00 06/09/19 08:33 06/09/19 04:00 06/09/19 04:00 06/09/19 06:03 Laboratory Results - last 24 hr 06/08/19 11:45: POC Glucose 257 H 06/08/19 16:16: POC Glucose 256 H 06/08/19 20:32: POC Glucose 299 H 06/09/19 06:21: POC Glucose 234 H I & O for Last 24 hours: Intake & Output 06/06/19 06/07/19 06/08/19 06/09/19 23:59 23:59 23:59 23:59 Intake Total 350 / 350 2298 / 2298 480 / 480 Output Total 1471 / 1771 500 / 500 Balance 350 / 350 827 / 527 -20 / -20 Weight 224 lb 6 oz 228 lb 2 oz Microbiology Reports for the Last 24 Hours: Microbiology 06/08/19 22:49 Sputum - Expectorated Sputum Gram Stain - Final - *Routine HEENT Exam Head: Present: normocephalic, atraumatic Eye: Present: EOMI, PERRL ENT: Present: mucous membranes moist - *Routine Neck Exam Present: supple, full ROM, normal carotid upstroke. Absent: JVD, carotid bruit, lymphadenopathy - *Routine Respiratory Exam Present: decreased breath sounds, rhonchi (Right upper lobe) - *Routine Cardiovascular Exam Present: Normal S1, Normal S2, irregularly irregular. Absent: murmur - *Routine Abdominal Exam Present: soft, normoactive bowel sounds. Absent: tenderness, distended - *Routine Extremities Exam Present: full ROM, pulses intact, normal capillary refill. Absent: cyanosis, clubbing, edema - *Routine Skin Exam Present: petechiae (On bilateral lower extremities), warm. Absent: erythema - *Routine Neurological Exam Present: alert, oriented X3, CN II-XII intact. Absent: sensory deficit, motor deficit - Detailed Eye Exam Eyelids: Left normal inspection Progress Note: A&P (1) CHF (congestive heart failure) Status: Acute Current Visit: Yes (2) CAD (coronary artery disease) Status: Chronic Current Visit: Yes (3) Diabetes mellitus, insulin dependent (IDDM), uncontrolled Status: Chronic Current Visit: Yes (4) HCAP (healthcare-associated pneumonia) Status: Acute Current Visit: No (5) Obesity (BMI 30-39.9) Status: Acute Current Visit: No (6) COPD (chronic obstructive pulmonary disease) Status: Acute Current Visit: Yes (7) Ischemic cardiomyopathy Status: Chronic Current Visit: Yes (8) A-fib Status: Chronic Current Visit: No (9) Hypertension Status: Chronic Current Visit: No (10) Mitral valve regurgitation Status: Chronic Current Visit: No (11) Chronic kidney disease Status: Chronic Current Visit: Yes (12) Pneumonia Status: Acute Current Visit: Yes Assessment and Plan for All Diagnoses:: Plan: 1. The patient was admitted to the hospital with shortness of breath and wheezes. The patient was found to have right upper and lower lobe pneumonia. He is being treated for his pneumonia with antibiotics per Dr. Vazquez. Will defer 2. The patient is also having an acute exacerbation of his diastolic congestive heart failure. His oral Lasix was switched over to IV Lasix yesterday. The patient had a positive fluid balance of over 800 mL yesterday despite having his IV fluids discontinued. The patient consumed almost 2 L of fluid yesterday. I had a long discussion with the patient about his fluid intake. The patient needs to only drink when he is thirsty. He reports that he was drinking a lot because of constipation. However I have advised him that the increase fluid intake does not help his congestive heart failure and he should only drink when he is thirsty. He has verbalized understanding. 3. We will increase his IV Lasix to 80 mg twice daily. However, no renal function or potassium were obtained this morning. We will get a BMP today and if his creatinine has significantly worsened then we may cut this dose back down to 40 mg twice a day and see if decreasing his fluid intake helps. At this point the patient needs more diuresis. 4. The patient has agreed to a CardioMEMS on an outpatient basis. This is his second admission to the hospital since March of this year for NYHA class III congestive heart failure. He would benefit from having a CardioMEMS in place to monitor his congestive heart failure to hopefully avoid readmissions to the hospital for CHF. 5. The patient does have coronary artery disease. He denies any chest pain or pressure. His coronary artery disease is likely stable. 6. His blood pressure is well controlled. 7. His LDL goal is less than 55. 8. His echocardiogram is currently pending. 9. Atrial fibrillation is rate controlled. He is on Xarelto for anticoagulation. 10. Further recommendations will be made pending the patient's response to treatment and the results of his blood work and echocardiogram. Thank you for the opportunity to help participate in the care of this patient.
[2019-06-09 10:14] LABS: Calcium 8.4 mg/dL (8.5-10.1)
--- NOTE | 2019-06-09 12:51 | Progress Note ---
Internal Medicine - PN: Subj *Date: 06/10/19 *Time: 06:36 Interval history: pt with some clinical improvement but inc renal labs - Exam Vital signs and Labs for Last 24 Hours: Temp Pulse Resp BP Pulse Ox 98.3 F 88 20 186/92 H 98 06/09/19 08:00 06/09/19 08:33 06/09/19 08:00 06/09/19 08:00 06/09/19 08:00 Laboratory Results - last 24 hr 06/08/19 16:16: POC Glucose 256 H 06/08/19 20:32: POC Glucose 299 H 06/09/19 06:21: POC Glucose 234 H 06/09/19 09:50: Sodium 134 L, Potassium 4.0, Chloride 99, Carbon Dioxide 26, Anion Gap 13.0, BUN 42 H D, Creatinine 2.19 H D, Estimated Creat Clear 44, Estimated GFR 30 L, Est GFR ( Amer) 36 L D, Glucose 270 H, Calcium 8.4 L I & O for Last 24 hours: Intake & Output 06/07/19 06/08/19 06/09/19 06/10/19 11:59 11:59 11:59 11:59 Intake Total 1040 / 1040 2688 / 2688 Output Total 2171 / 2171 Balance 1039 / 1039 517 / 517 Weight 224 lb 6 oz 228 lb 2 oz Microbiology Reports for the Last 24 Hours: Microbiology 06/08/19 22:49 Sputum - Expectorated Sputum Gram Stain - Final 06/08/19 22:49 Sputum - Expectorated Sputum Sputum Culture - Preliminary - Constitutional no acute distress, obese - *Routine HEENT Exam Head: Present: normocephalic Eye: Present: EOMI, PERRL ENT: Present: mucous membranes dry - *Routine Neck Exam Absent: JVD - *Routine Respiratory Exam Present: distant breath sounds - *Routine Cardiovascular Exam Present: RRR - *Routine Abdominal Exam Present: soft - *Routine Extremities Exam Present: edema. Absent: full ROM - *Routine Skin Exam Present: intact - *Routine Neurological Exam Present: alert - Routine Psychiatric Exam Present: normal affect Assessment and Plan (1) CHF (congestive heart failure) Current visit: Yes Status: Acute Qualifiers: Heart failure type: unspecified Heart failure chronicity: acute on chronic Qualified Code(s): I50.9 - Heart failure, unspecified Category: Medical Code(s): I50.9 - Heart failure, unspecified (2) CAD (coronary artery disease) Current visit: Yes Status: Chronic Qualifiers: Coronary Disease-Associated Artery/Lesion type: [place] artery [place] vs. transplanted heart: [place] heart Associated angina: without angina Qualified Code(s): I25.10 - Atherosclerotic heart disease of [place] coronary artery without angina pectoris Category: Medical Code(s): I25.10 - Atherosclerotic heart disease of [place] coronary artery without angina pectoris (3) Diabetes mellitus, insulin dependent (IDDM), uncontrolled Current visit: Yes Status: Chronic Qualifiers: Glycemic state: with hyperglycemia Qualified Code(s): E10.65 - Type 1 diabetes mellitus with hyperglycemia Category: Medical Code(s): E10.65 - Type 1 diabetes mellitus with hyperglycemia (4) HCAP (healthcare-associated pneumonia) Current visit: No Status: Acute Category: Medical Code(s): J18.9 - Pneumonia, unspecified organism (5) Obesity (BMI 30-39.9) Current visit: No Status: Acute Category: Medical Code(s): E66.9 - Obesity, unspecified (6) COPD (chronic obstructive pulmonary disease) Current visit: Yes Status: Acute Category: Medical Code(s): J44.9 - Chronic obstructive pulmonary disease, unspecified (7) Ischemic cardiomyopathy Current visit: Yes Status: Chronic Category: Medical Code(s): I25.5 - Ischemic cardiomyopathy (8) A-fib Current visit: No Status: Chronic Qualifiers: Atrial fibrillation type: paroxysmal Qualified Code(s): I48.0 - Paroxysmal atrial fibrillation Category: Medical Code(s): I48.91 - Unspecified atrial fibrillation (9) Hypertension Current visit: No Status: Chronic Qualifiers: Hypertension type: essential hypertension Qualified Code(s): I10 - Essential (primary) hypertension Category: Medical Code(s): I10 - Essential (primary) hypertension (10) Mitral valve regurgitation Current visit: No Status: Chronic Qualifiers: Cardiac valve disease etiology: etiology unspecified Qualified Code(s): I34.0 - Nonrheumatic mitral (valve) insufficiency Category: Medical Code(s): I34.0 - Nonrheumatic mitral (valve) insufficiency (11) Chronic kidney disease Current visit: Yes Status: Chronic Category: Medical Code(s): N18.9 - Chronic kidney disease, unspecified (12) Pneumonia Current visit: Yes Status: Acute Category: Medical Code(s): J18.9 - Pneumonia, unspecified organism
[2019-06-10 07:13] LABS: Anion Gap 12.9 mEq/L (5-15); Calcium 8.6 mg/dL (8.5-10.1)
[2019-06-10 08:32] LABS: Basophils % 0.1 % (0.1-2.0); Eosinophils # 0.1 K/mm3 (0.0-0.4); Eosinophils % 0.5 % (0.1-12.0); Hematocrit 28.7 % (42.0-52.0); Hemoglobin 8.8 g/dL (14.1-18.0); Lymphocytes # 1.1 K/mm3 (0.7-4.5); Lymphocytes % 9.2 % (10-50); Mean Corpuscular HGB Conc 30.6 g/dL (31.8-35.4); Mean Platelet Volume 8.2 fl (7.4-10.4); Monocytes # 1.9 K/mm3 (0.1-1.0); Monocytes % 16.7 % (1.7-9.3); Neutrophils # 8.4 K/mm3 (1.8-7.8); Neutrophils % 73.5 % (37.0-80.0); Platelet Count 345 K/mm3 (142-424); Red Blood Count 2.93 M/mm3 (4.60-6.20); Red Cell Distribution Width 16.7 % (11.5-17.5); White Blood Count 11.5 K/mm3 (4.8-10.8)
--- NOTE | 2019-06-10 09:10 | Progress Note ---
Subjective Date: 06/10/19 Time: 09:07 Principal diagnosis: CHF Interval history: 74-year-old white male in bed in no acute distress. He does complain of right shoulder discomfort which was more intense last evening. He relates about 3 to 4-week history of discomfort but denies any history of fall. X-ray was performed overnight with no evidence of acute fracture or other malignant process. Patient diuresed about 1 L overnight but still has a net positive fluid balance for the hospital stay. Renal status is stable. Exam Vital signs and Labs for Last 24 Hours: Temp Pulse Resp BP Pulse Ox 97.9 F 110 H 22 116/67 97 06/10/19 08:00 06/10/19 08:00 06/10/19 08:00 06/10/19 08:00 06/10/19 08:00 Laboratory Results - last 24 hr 06/09/19 09:50: Sodium 134 L, Potassium 4.0, Chloride 99, Carbon Dioxide 26, Anion Gap 13.0, BUN 42 H D, Creatinine 2.19 H D, Estimated Creat Clear 44, Estimated GFR 30 L, Est GFR ( Amer) 36 L D, Glucose 270 H, Calcium 8.4 L 06/09/19 12:03: POC Glucose 294 H 06/09/19 16:16: POC Glucose 271 H 06/09/19 20:38: POC Glucose 290 H 06/10/19 06:19: POC Glucose 233 H 06/10/19 06:35: Sodium 136, Potassium 3.9, Chloride 101, Carbon Dioxide 26, Anion Gap 12.9, BUN 39 H, Creatinine 2.03 H, Estimated Creat Clear 47, Estimated GFR 32 L, Est GFR ( Amer) 39 L, Glucose 228 H, Calcium 8.6 06/10/19 06:35: WBC 11.5 H, RBC 2.93 L, Hgb 8.8 L, Hct 28.7 L, MCV 98.0 H, MCH 30.0, MCHC 30.6 L, RDW 16.7, Plt Count 345, MPV 8.2, Neut % (Auto) 73.5, Lymph % (Auto) 9.2 L, [place] % (Auto) 16.7 H, Eos % (Auto) 0.5, Baso % (Auto) 0.1, Neut # (Auto) 8.4 H, Lymph # (Auto) 1.1, [place] # (Auto) 1.9 H, Eos # (Auto) 0.1, Baso # (Auto) 0.0 I & O for Last 24 hours: Intake & Output 06/07/19 06/08/19 06/09/19 06/10/19 11:59 11:59 11:59 11:59 Intake Total 1040 / 1040 2688 / 2688 720 / 720 Output Total 2171 / 2171 1700 / 1700 Balance 1039 / 1039 517 / 517 -980 / -980 Weight 224 lb 6 oz 228 lb 2 oz 224 lb 2 oz Microbiology Reports for the Last 24 Hours: Microbiology 06/08/19 22:49 Sputum - Expectorated Sputum Gram Stain - Final 06/08/19 22:49 Sputum - Expectorated Sputum Sputum Culture - Preliminary 06/07/19 16:50 Blood Blood Culture - Preliminary NO GROWTH AFTER 48 HOURS 06/07/19 16:50 Blood Blood Culture - Preliminary NO GROWTH AFTER 48 HOURS - *Routine Respiratory Exam Present: decreased breath sounds, diminished air movement. Absent: accessory muscle use, rales, rhonchi, wheezes - *Routine Cardiovascular Exam Present: RRR. Absent: murmur, gallop, rubs - *Routine Extremities Exam Present: joint swelling. Absent: edema, calf tenderness - *Routine Neurological Exam Present: alert, oriented X3, moving all extremities Progress Note: A&P (1) CHF (congestive heart failure) Status: Acute Current Visit: Yes (2) CAD (coronary artery disease) Status: Chronic Current Visit: Yes (3) Diabetes mellitus, insulin dependent (IDDM), uncontrolled Status: Chronic Current Visit: Yes (4) HCAP (healthcare-associated pneumonia) Status: Acute Current Visit: No (5) Obesity (BMI 30-39.9) Status: Acute Current Visit: No (6) COPD (chronic obstructive pulmonary disease) Status: Acute Current Visit: Yes (7) Ischemic cardiomyopathy Status: Chronic Current Visit: Yes (8) A-fib Status: Chronic Current Visit: No (9) Hypertension Status: Chronic Current Visit: No (10) Mitral valve regurgitation Status: Chronic Current Visit: No (11) Chronic kidney disease Status: Chronic Current Visit: Yes (12) Pneumonia Status: Acute Current Visit: Yes Assessment and Plan for All Diagnoses:: 1. Continue IV diuretics with close renal follow-up. 2. Right shoulder discomfort with no evidence of fracture or malignant process. Defer to Dr. Vazquez. 3. 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 Anticipating placement of CardioMEMS device as an outpatient patient to help with management of his congestive heart failure. 4. Atrial fibrillation, on Xarelto therapy. 5. CAD, clinically stable.
--- NOTE | 2019-06-10 09:25 | Progress Note ---
Internal Medicine - PN: Subj *Date: 06/10/19 *Time: 09:22 Interval history: Today patient states he feels worse. Complaining of right shoulder pain. Patient states he is having trouble feeding himself. Exam Vital signs and Labs for Last 24 Hours: Temp Pulse Resp BP Pulse Ox 97.9 F 85 22 116/67 97 06/10/19 08:00 06/10/19 09:13 06/10/19 08:00 06/10/19 08:00 06/10/19 08:00 Laboratory Results - last 24 hr 06/09/19 09:50: Sodium 134 L, Potassium 4.0, Chloride 99, Carbon Dioxide 26, Anion Gap 13.0, BUN 42 H D, Creatinine 2.19 H D, Estimated Creat Clear 44, Estimated GFR 30 L, Est GFR ( Amer) 36 L D, Glucose 270 H, Calcium 8.4 L 06/09/19 12:03: POC Glucose 294 H 06/09/19 16:16: POC Glucose 271 H 06/09/19 20:38: POC Glucose 290 H 06/10/19 06:19: POC Glucose 233 H 06/10/19 06:35: Sodium 136, Potassium 3.9, Chloride 101, Carbon Dioxide 26, Anion Gap 12.9, BUN 39 H, Creatinine 2.03 H, Estimated Creat Clear 47, Estimated GFR 32 L, Est GFR ( Amer) 39 L, Glucose 228 H, Calcium 8.6 06/10/19 06:35: WBC 11.5 H, RBC 2.93 L, Hgb 8.8 L, Hct 28.7 L, MCV 98.0 H, MCH 30.0, MCHC 30.6 L, RDW 16.7, Plt Count 345, MPV 8.2, Neut % (Auto) 73.5, Lymph % (Auto) 9.2 L, [place] % (Auto) 16.7 H, Eos % (Auto) 0.5, Baso % (Auto) 0.1, Neut # (Auto) 8.4 H, Lymph # (Auto) 1.1, [place] # (Auto) 1.9 H, Eos # (Auto) 0.1, Baso # (Auto) 0.0 I & O for Last 24 hours: Intake & Output 06/07/19 06/08/19 06/09/1922/19 11:59 11:59 11:59 11:59 Intake Total 1040 / 1040 2688 / 2688 720 / 720 Output Total 2171 / 2171 1700 / 1700 Balance 1039 / 1039 517 / 517 -980 / -980 Weight 224 lb 6 oz 228 lb 2 oz 224 lb 2 oz Microbiology Reports for the Last 24 Hours: Microbiology 06/08/19 22:49 Sputum - Expectorated Sputum Gram Stain - Final 06/08/19 22:49 Sputum - Expectorated Sputum Sputum Culture - Preliminary 06/07/19 16:50 Blood Blood Culture - Preliminary NO GROWTH AFTER 48 HOURS 06/07/19 16:50 Blood Blood Culture - Preliminary NO GROWTH AFTER 48 HOURS - Constitutional no acute distress - *Routine HEENT Exam Head: Present: normocephalic Eye: Present: PERRL ENT: Present: mucous membranes moist - *Routine Neck Exam Present: supple. Absent: lymphadenopathy - *Routine Respiratory Exam Present: decreased breath sounds, wheezes - *Routine Cardiovascular Exam Present: RRR - *Routine Abdominal Exam Present: soft, normoactive bowel sounds. Absent: tenderness - *Routine Extremities Exam Absent: cyanosis, clubbing, edema Comments: rt shoulder tender and swollen, no redness - *Routine Skin Exam Present: warm. Absent: rash Comments: multiple scabbed areas scattered thoughout body - *Routine Neurological Exam Present: alert, oriented X3 - Routine Psychiatric Exam Comments: tearful related to shoulder pain Assessment and Plan (1) CHF (congestive heart failure) Current visit: Yes Status: Acute Qualifiers: Heart failure type: unspecified Heart failure chronicity: acute on chronic Qualified Code(s): I50.9 - Heart failure, unspecified Category: Medical Code(s): I50.9 - Heart failure, unspecified (2) CAD (coronary artery disease) Current visit: Yes Status: Chronic Qualifiers: Coronary Disease-Associated Artery/Lesion type: [place] artery [place] vs. transplanted heart: [place] heart Associated angina: without angina Qualified Code(s): I25.10 - Atherosclerotic heart disease of [place] coronary artery without angina pectoris Category: Medical Code(s): I25.10 - Atherosclerotic heart disease of [place] coronary artery without angina pectoris (3) Diabetes mellitus, insulin dependent (IDDM), uncontrolled Current visit: Yes Status: Chronic Qualifiers: Glycemic state: with hyperglycemia Qualified Code(s): E10.65 - Type 1 diabetes mellitus with hyperglycemia Category: Medical Code(s): E10.65 - Type 1 diabetes mellitus with hyperglycemia (4) HCAP (healthcare-associated pneumonia) Current visit: No Status: Acute Category: Medical Code(s): J18.9 - Pneumonia, unspecified organism (5) Obesity (BMI 30-39.9) Current visit: No Status: Acute Category: Medical Code(s): E66.9 - Obesity, unspecified (6) COPD (chronic obstructive pulmonary disease) Current visit: Yes Status: Acute Category: Medical Code(s): J44.9 - Chronic obstructive pulmonary disease, unspecified (7) Ischemic cardiomyopathy Current visit: Yes Status: Chronic Category: Medical Code(s): I25.5 - Ischemic cardiomyopathy (8) A-fib Current visit: No Status: Chronic Qualifiers: Atrial fibrillation type: paroxysmal Qualified Code(s): I48.0 - Paroxysmal atrial fibrillation Category: Medical Code(s): I48.91 - Unspecified atrial fibrillation (9) Hypertension Current visit: No Status: Chronic Qualifiers: Hypertension type: essential hypertension Qualified Code(s): I10 - Essent ial (primary) hypertension Category: Medical Code(s): I10 - Essential (primary) hypertension (10) Mitral valve regurgitation Current visit: No Status: Chronic Qualifiers: Cardiac valve disease etiology: etiology unspecified Qualified Code(s): I34.0 - Nonrheumatic mitral (valve) insufficiency Category: Medical Code(s): I34.0 - Nonrheumatic mitral (valve) insufficiency (11) Chronic kidney disease Current visit: Yes Status: Chronic Category: Medical Code(s): N18.9 - Chronic kidney disease, unspecified (12) Pneumonia Current visit: Yes Status: Acute Category: Medical Code(s): J18.9 - Pneumonia, unspecified organism - Assessment and plan all Dx Assessment and Plan for all problems:: Rounded with Dr. Vazquez all orders per George Add steroids PT OT for out of bed Possible discharge back to [place] tomorrow
[2019-06-11 06:41] LABS: Basophils % 0.1 % (0.1-2.0); Hematocrit 27.7 % (42.0-52.0); Hemoglobin 8.3 g/dL (14.1-18.0); Lymphocytes # 0.9 K/mm3 (0.7-4.5); Lymphocytes % 7.3 % (10-50); Mean Corpuscular HGB Conc 30.1 g/dL (31.8-35.4); Mean Corpuscular Volume 99.2 fl (80-94); Mean Platelet Volume 7.7 fl (7.4-10.4); Monocytes # 1.3 K/mm3 (0.1-1.0); Monocytes % 11.4 % (1.7-9.3); Neutrophils # 9.4 K/mm3 (1.8-7.8); Neutrophils % 81.2 % (37.0-80.0); Platelet Count 327 K/mm3 (142-424); Red Cell Distribution Width 16.4 % (11.5-17.5); White Blood Count 11.6 K/mm3 (4.8-10.8)
[2019-06-11 06:47] LABS: Anion Gap 12.2 mEq/L (5-15); Calcium 8.9 mg/dL (8.5-10.1)
--- NOTE | 2019-06-11 08:11 | Progress Note ---
Subjective Date: 06/11/19 Time: 08:05 Principal diagnosis: CHF Interval history: 74 yo WM in bed in NAD. Appears tired and pale. Still with SOA and audible crackles with poor cough. States he does not feel his SOA has improved. Hgb continues to fall despite increased lasix and wt loss but without significantly increased urine output. Exam Vital signs and Labs for Last 24 Hours: Temp Pulse Resp BP Pulse Ox 97.6 F 91 H 16 120/70 95 06/11/19 04:00 06/11/19 06:10 06/11/19 04:00 06/11/19 04:00 06/11/19 06:10 Laboratory Results - last 24 hr 06/10/19 06:35: WBC 11.5 H, RBC 2.93 L, Hgb 8.8 L, Hct 28.7 L, MCV 98.0 H, MCH 30.0, MCHC 30.6 L, RDW 16.7, Plt Count 345, MPV 8.2, Neut % (Auto) 73.5, Lymph % (Auto) 9.2 L, [place] % (Auto) 16.7 H, Eos % (Auto) 0.5, Baso % (Auto) 0.1, Neut # (Auto) 8.4 H, Lymph # (Auto) 1.1, [place] # (Auto) 1.9 H, Eos # (Auto) 0.1, Baso # (Auto) 0.0 06/10/19 11:51: POC Glucose 257 H 06/10/19 16:09: POC Glucose 291 H 06/10/19 20:43: POC Glucose 426 H* 06/11/19 05:33: WBC 11.6 H, RBC 2.80 L, Hgb 8.3 L, Hct 27.7 L, MCV 99.2 H, MCH 29.9, MCHC 30.1 L, RDW 16.4, Plt Count 327, MPV 7.7, Neut % (Auto) 81.2 H, Lymph % (Auto) 7.3 L, [place] % (Auto) 11.4 H, Eos % (Auto) 0.0 L, Baso % (Auto) 0.1, Neut # (Auto) 9.4 H, Lymph # (Auto) 0.9, [place] # (Auto) 1.3 H, Eos # (Auto) 0.0, Baso # (Auto) 0.0 06/11/19 05:33: Sodium 134 L, Potassium 4.2, Chloride 99, Carbon Dioxide 27, Anion Gap 12.2, BUN 49 H D, Creatinine 2.19 H, Estimated Creat Clear 43, Estimated GFR 30 L, Est GFR ( Amer) 36 L, Glucose 292 H D, Calcium 8.9 06/11/19 06:32: POC Glucose 323 H* I & O for Last 24 hours: Intake & Output 06/08/19 06/09/19 06/10/19 06/11/19 11:59 11:59 11:59 11:59 Intake Total 1040 / 1040 2688 / 2688 720 / 720 830 / 830 Output Total 2171 / 2171 1700 / 1700 Balance 1039 / 1039 517 / 517 -980 / -980 830 / 830 Weight 224 lb 6 oz 228 lb 2 oz 224 lb 2 oz 223 lb 8 oz Microbiology Reports for the Last 24 Hours: Microbiology 06/08/19 22:49 Sputum - Expectorated Sputum Gram Stain - Final 06/08/19 22:49 Sputum - Expectorated Sputum Sputum Culture - Preliminary - *Routine Respiratory Exam Present: decreased breath sounds, rhonchi, diminished air movement. Absent: accessory muscle use, rales, wheezes - *Routine Cardiovascular Exam Present: irregularly irregular. Absent: murmur, gallop, rubs - *Routine Abdominal Exam Present: soft. Absent: tenderness, distended, guarding - *Routine Extremities Exam Absent: edema, calf tenderness - *Routine Neurological Exam Present: alert, oriented X3, moving all extremities Progress Note: A&P (1) CHF (congestive heart failure) Status: Acute Current Visit: Yes (2) CAD (coronary artery disease) Status: Chronic Current Visit: Yes (3) Diabetes mellitus, insulin dependent (IDDM), uncontrolled Status: Chronic Current Visit: Yes (4) HCAP (healthcare-associated pneumonia) Status: Acute Current Visit: No (5) Obesity (BMI 30-39.9) Status: Acute Current Visit: No (6) COPD (chronic obstructive pulmonary disease) Status: Acute Current Visit: Yes (7) Ischemic cardiomyopathy Status: Chronic Current Visit: Yes (8) A-fib Status: Chronic Current Visit: No (9) Hypertension Status: Chronic Current Visit: No (10) Mitral valve regurgitation Status: Chronic Current Visit: No (11) Chronic kidney disease Status: Chronic Current Visit: Yes (12) Pneumonia Status: Acute Current Visit: Yes Assessment and Plan for All Diagnoses:: 1. CHF, multifactorial including both systolic and diastolic factors, CKD, 3+ proteinuria in diabetic with continued increased PO intake. Continue current IV lasix and will make additional med changes (stop norvasc and increase coreg and irbesartan). Will also add spironolactone 25 mg daily. Check BMP in AM. 2. COPD, on oxygen 3. Anemia, down from 10-11 earlier this year. Will check stool for blood but l ikely due to chronic disease compounded by Xarelto use for chronic a. fib. Repeat in AM and consider transfusion to help with CHF treatment. 4. DM, per Dr. Vazquez 5. Bilateral pneumonia, on abx
--- NOTE | 2019-06-11 08:12 | Progress Note ---
Internal Medicine - PN: Subj *Date: 06/11/19 *Time: 08:12 Exam Vital signs and Labs for Last 24 Hours: Temp Pulse Resp BP Pulse Ox 97.6 F 91 H 16 120/70 95 06/11/19 04:00 06/11/19 06:10 06/11/19 04:00 06/11/19 04:00 06/11/19 06:10 Laboratory Results - last 24 hr 06/10/19 06:35: WBC 11.5 H, RBC 2.93 L, Hgb 8.8 L, Hct 28.7 L, MCV 98.0 H, MCH 30.0, MCHC 30.6 L, RDW 16.7, Plt Count 345, MPV 8.2, Neut % (Auto) 73.5, Lymph % (Auto) 9.2 L, [place] % (Auto) 16.7 H, Eos % (Auto) 0.5, Baso % (Auto) 0.1, Neut # (Auto) 8.4 H, Lymph # (Auto) 1.1, [place] # (Auto) 1.9 H, Eos # (Auto) 0.1, Baso # (Auto) 0.0 06/10/19 11:51: POC Glucose 257 H 06/10/19 16:09: POC Glucose 291 H 06/10/19 20:43: POC Glucose 426 H* 06/11/19 05:33: WBC 11.6 H, RBC 2.80 L, Hgb 8.3 L, Hct 27.7 L, MCV 99.2 H, MCH 29.9, MCHC 30.1 L, RDW 16.4, Plt Count 327, MPV 7.7, Neut % (Auto) 81.2 H, Lymph % (Auto) 7.3 L, [place] % (Auto) 11.4 H, Eos % (Auto) 0.0 L, Baso % (Auto) 0.1, Neut # (Auto) 9.4 H, Lymph # (Auto) 0.9, [place] # (Auto) 1.3 H, Eos # (Auto) 0.0, Baso # (Auto) 0.0 06/11/19 05:33: Sodium 134 L, Potassium 4.2, Chloride 99, Carbon Dioxide 27, Anion Gap 12.2, BUN 49 H D, Creatinine 2.19 H, Estimated Creat Clear 43, Estimated GFR 30 L, Est GFR ( Amer) 36 L, Glucose 292 H D, Calcium 8.9 06/11/19 06:32: POC Glucose 323 H* I & O for Last 24 hours: Intake & Output 06/08/19 06/09/19 06/10/19 06/11/19 23:59 23:59 23:59 23:59 Intake Total 2298 / 2298 1560 / 1560 970 / 970 100 / 100 Output Total 1471 / 1771 1201 / 1201 1200 / 1200 Balance 827 / 527 359 / 359 -230 / -230 100 / 100 Weight 103.476 kg 101.661 kg 101.378 kg Microbiology Reports for the Last 24 Hours: Microbiology 06/08/19 22:49 Sputum - Expectorated Sputum Gram Stain - Final 06/08/19 22:49 Sputum - Expectorated Sputum Sputum Culture - Preliminary Assessment and Plan (1) CHF (congestive heart failure) Current visit: Yes Status: Acute Qualifiers: Qualified Code(s): I50.9 - Heart failure, unspecified Category: Medical Code(s): I50.9 - Heart failure, unspecified (2) CAD (coronary artery disease) Current visit: Yes Status: Chronic Qualifiers: Qualified Code(s): I25.10 - Atherosclerotic heart disease of [place] coronary artery without angina pectoris Category: Medical Code(s): I25.10 - Atherosclerotic heart disease of [place] artery without angina pectoris (3) Diabetes mellitus, insulin dependent (IDDM), uncontrolled Current visit: Yes Status: Chronic Qualifiers: Qualified Code(s): E10.65 - Type 1 diabetes mellitus with hyperglycemia Category: Medical Code(s): E10.65 - Type 1 diabetes mellitus with hyperglycemia (4) HCAP (healthcare-associated pneumonia) Current visit: No Status: Acute Category: Medical Code(s): J18.9 - Pneumonia, unspecified organism (5) Obesity (BMI 30-39.9) Current visit: No Status: Acute Category: Medical Code(s): E66.9 - Obesity, unspecified (6) COPD (chronic obstructive pulmonary disease) Current visit: Yes Status: Acute Category: Medical Code(s): J44.9 - Chr onic obstructive pulmonary disease, unspecified (7) Ischemic cardiomyopathy Current visit: Yes Status: Chronic Category: Medical Code(s): I25.5 - Ischemic cardiomyopathy (8) A-fib Current visit: No Status: Chronic Qualifiers: Qualified Code(s): I48.0 - Paroxysmal atrial fibrillation Category: Medical Code(s): I48.91 - Unspecified atrial fibrillation (9) Hypertension Current visit: No Status: Chronic Qualifiers: Qualified Code(s): I10 - Essential (primary) hypertension Category: Medical Code(s): I10 - Essential (primary) hypertension (10) Mitral valve regurgitation Current visit: No Status: Chronic Qualifiers: Qualified Code(s): I34.0 - Nonrheumatic mitral (valve) insufficiency Category: Medical Code(s): I34.0 - Nonrheumatic mitral (valve) insufficiency (11) Chronic kidney disease Current visit: Yes Status: Chronic Category: Medical Code(s): N18.9 - Chronic kidney disease, unspecified (12) Pneumonia Current visit: Yes Status: Acute Category: Medical Code(s): J18.9 - Pneumonia, unspecified organism The patient's infection will respond to the chosen ABx?: Yes Is the patient receiving the right drug, dose, and route?: Yes Could a more targeted ABx be ordered?: No
--- NOTE | 2019-06-11 09:33 | Progress Note ---
Internal Medicine - PN: Subj *Date: 06/11/19 *Time: 09:35 Interval history: 78-year-old male patient sitting up in bed this morning, reports he is feeling better, reports shoulder is not hurting. Patient still refusing to move right shoulder very much and does complains of pain when he does move it on exam. Patient was out of bed yesterday up to chair with max assist. Exam Vital signs and Labs for Last 24 Hours: Temp Pulse Resp BP Pulse Ox 97.8 F 96 H 18 138/71 95 06/11/19 08:00 06/11/19 08:23 06/11/19 08:00 06/11/19 08:00 06/11/19 08:30 Laboratory Results - last 24 hr 06/10/19 11:51: POC Glucose 257 H 06/10/19 16:09: POC Glucose 291 H 06/10/19 20:43: POC Glucose 426 H* 06/11/19 05:33: WBC 11.6 H, RBC 2.80 L, Hgb 8.3 L, Hct 27.7 L, MCV 99.2 H, MCH 29.9, MCHC 30.1 L, RDW 16.4, Plt Count 327, MPV 7.7, Neut % (Auto) 81.2 H, Lymph % (Auto) 7.3 L, [place] % (Auto) 11.4 H, Eos % (Auto) 0.0 L, Baso % (Auto) 0.1, Neut # (Auto) 9.4 H, Lymph # (Auto) 0.9, [place] # (Auto) 1.3 H, Eos # (Auto) 0.0, Baso # (Auto) 0.0 06/11/19 05:33: Sodium 134 L, Potassium 4.2, Chloride 99, Carbon Dioxide 27, Anion Gap 12.2, BUN 49 H D, Creatinine 2.19 H, Estimated Creat Clear 43, Estimated GFR 30 L, Est GFR ( Amer) 36 L, Glucose 292 H D, Calcium 8.9 06/11/19 06:32: POC Glucose 323 H* I & O for Last 24 hours: Intake & Output 06/08/19 06/09/19 06/10/19 06/11/19 23:59 23:59 23:59 23:59 Intake Total 2298 / 2298 1560 / 1560 970 / 970 340 / 340 Output Total 1471 / 1771 1201 / 1201 1200 / 1200 Balance 827 / 527 359 / 359 -230 / -230 340 / 340 Weight 228 lb 2.008 oz 224 lb 2 oz 223 lb 8 oz Microbiology Reports for the Last 24 Hours: Microbiology 06/08/19 22:49 Sputum - Expectorated Sputum Gram Stain - Final 06/08/19 22:49 Sputum - Expectorated Sputum Sputum Culture - Preliminary - Constitutional no acute distress - *Routine HEENT Exam Head: Present: normocephalic, atraumatic. Absent: tenderness of temporal artery Eye: Present: EOMI, PERRL, normal accommodation. Absent: conjunctival icterus ENT: Present: mucous membranes moist. Absent: sinus tenderness - *Routine Neck Exam Present: supple, trachea midline. Absent: tracheal deviation - *Routine Respiratory Exam Present: rhonchi, wheezes. Absent: accessory muscle use, CTA bilaterally - *Routine Cardiovascular Exam Present: irregularly irregular - *Routine Abdominal Exam Present: soft, normoactive bowel sounds. Absent: tenderness, firm Assessment and Plan (1) CHF (congestive heart failure) Current visit: Yes Status: Acute Qualifiers: Heart failure type: unspecified Heart failure chronicity: acute on chronic Qualified Code(s): I50.9 - Heart failure, unspecified Category: Medical Code(s): I50.9 - Heart failure, unspecified (2) CAD (coronary artery disease) Current visit: Yes Status: Chronic Qualifiers: Coronary Disease-Associated Artery/Lesion type: [place] artery [place] vs. transplanted heart: [place] heart Associated angina: without angina Qualified Code(s): I25.10 - Atherosclerotic heart disease of [place] coronary artery without angina pectoris Category: Medical Code(s): I25.10 - Atherosclerotic heart disease of [place] coronary artery without angina pectoris (3) Diabetes mellitus, insulin dependent (IDDM), uncontrolled Current visit: Yes Status: Chronic Qualifiers: Glycemic state: with hyperglycemia Qualified Code(s): E10.65 - Type 1 diabetes mellitus with hyperglycemia Category: Medical Code(s): E10.65 - Type 1 diabetes mellitus with hyperglycemia (4) HCAP (healthcare-associated pneumonia) Current visit: No Status: Acute Category: Medical Code(s): J18.9 - Pneumonia, unspecified organism (5) Obesity (BMI 30-39.9) Current visit: No Status: Acute Category: Medical Code(s): E66.9 - Obesity, unspecified (6) COPD (chronic obstructive pulmonary disease) Current visit: Yes Status: Acute Category: Medical Code(s): J44.9 - Chronic obstructive pulmonary disease, unspecified (7) Ischemic cardiomyopathy Current visit: Yes Status: Chronic Category: Medical Code(s): I25.5 - Ischemic cardiomyopathy (8) A-fib Current visit: No Status: Chronic Qualifiers: Atrial fibrillation type: paroxysmal Qualified Code(s): I48.0 - Paroxysmal atrial fibrillation Category: Medical Code(s): I48.91 - Unspecified atrial fibrillation (9) Hypertension Current visit: No Status: Chronic Qualifiers: Hypertension type: essential hypertension Qualified Code(s): I10 - Essential (primary) hypertension Category: Medical Code(s): I10 - Essential (primary) hypertension (10) Mitral valve regurgitation Current visit: No Status: Chronic Qualifiers: Cardiac valve disease etiology: etiology unspecified Qualified Code(s): I34.0 - Nonrheumatic mitral (valve) insufficiency Category: Medical Code(s): I34.0 - Nonrheumatic mitral (valve) insufficiency (11) Chronic kidney disease Current visit: Yes Status: Chronic Category: Medical Code(s): N18.9 - Chronic kidney disease, unspecified (12) Pneumonia Current visit: Yes Status: Acute Category: Medical Code(s): J18.9 - Pneumonia, unspecified organism - Assessment and plan all Dx Assessment and Plan for all problems:: Dr. Vazquez will round on patient in the afternoon, he will be updated on patient's progress,and all orders will be per Dr. Vazquez Cardiology has seen and recommends: 1. CHF, multifactorial including both systolic and diastolic factors, CKD, 3+ proteinuria in diabetic with continued increased PO intake. Continue current IV lasix and will make additional med changes (stop norvasc and increase coreg and irbesartan). Will also add spironolactone 25 mg daily. Check BMP in AM. 2. COPD, on oxygen 3. Anemia, down from 10-11 earlier this year. Will check stool for blood but likely due to chronic disease compounded by Xarelto use for chronic a. fib. Repeat in AM and consider transfusion to help with CHF treatment. 4. DM, per Dr. Vazquez 5. Bilateral pneumonia, on abx The patient's infection will respond to the chosen ABx?: Yes Is the patient receiving the right drug, dose, and route?: Yes Could a more targeted ABx be ordered?: No
[2019-06-12 07:39] LABS: Basophils % 0.2 % (0.1-2.0); Eosinophils # 0.1 K/mm3 (0.0-0.4); Eosinophils % 0.9 % (0.1-12.0); Hematocrit 29.8 % (42.0-52.0); Hemoglobin 8.8 g/dL (14.1-18.0); Lymphocytes # 1.1 K/mm3 (0.7-4.5); Lymphocytes % 11.7 % (10-50); Mean Corpuscular HGB Conc 29.5 g/dL (31.8-35.4); Mean Corpuscular Volume 99.1 fl (80-94); Mean Platelet Volume 7.7 fl (7.4-10.4); Monocytes # 0.7 K/mm3 (0.1-1.0); Monocytes % 7.6 % (1.7-9.3); Neutrophils # 7.3 K/mm3 (1.8-7.8); Neutrophils % 79.7 % (37.0-80.0); Platelet Count 361 K/mm3 (142-424); Red Blood Count 3.01 M/mm3 (4.60-6.20); Red Cell Distribution Width 16.5 % (11.5-17.5); White Blood Count 9.2 K/mm3 (4.8-10.8)
[2019-06-12 07:53] LABS: Anion Gap 11.7 mEq/L (5-15); Calcium 8.7 mg/dL (8.5-10.1)
--- NOTE | 2019-06-12 08:22 | Progress Note ---
Internal Medicine - PN: Subj *Date: 06/12/19 *Time: 08:20 Interval history: looks more comfortable and shoulder better but inc bun and creat Exam Vital signs and Labs for Last 24 Hours: Temp Pulse Resp BP Pulse Ox 98.1 F 76 20 152/90 H 96 06/12/19 04:00 06/12/19 06:29 06/12/19 04:00 06/12/19 04:00 06/12/19 06:29 Laboratory Results - last 24 hr 06/11/19 10:58: POC Glucose 263 H 06/11/19 16:08: POC Glucose 288 H 06/11/19 20:55: POC Glucose 319 H* 06/12/19 06:11: POC Glucose 258 H 06/12/19 06:55: WBC 9.2, RBC 3.01 L, Hgb 8.8 L, Hct 29.8 L, MCV 99.1 H, MCH 29.2, MCHC 29.5 L, RDW 16.5, Plt Count 361, MPV 7.7, Neut % (Auto) 79.7, Lymph % (Auto) 11.7, [place] % (Auto) 7.6, Eos % (Auto) 0.9, Baso % (Auto) 0.2, Neut # (Auto) 7.3, Lymph # (Auto) 1.1, [place] # (Auto) 0.7, Eos # (Auto) 0.1, Baso # (Auto) 0.0 06/12/19 06:55: Sodium 134 L, Potassium 3.7, Chloride 99, Carbon Dioxide 27, Anion Gap 11.7, BUN 64 H D, Creatinine 2.42 H, Estimated Creat Clear 39, Estimated GFR 26 L, Est GFR ( Amer) 32 L, Glucose 242 H, Calcium 8.7 I & O for Last 24 hours: Intake & Output 06/09/19 06/10/19 06/11/19 06/12/19 11:59 11:59 11:59 11:59 Intake Total 2688 / 2688 720 / 720 1070 / 1070 580 / 580 Output Total 2171 / 2171 1700 / 1700 Balance 517 / 517 -980 / -980 1070 / 1070 580 / 580 Weight 228 lb 2 oz 224 lb 2 oz 223 lb 8 oz 223 lb 8.004 oz Microbiology Reports for the Last 24 Hours: Microbiology 06/08/19 22:49 Sputum - Expectorated Sputum Gram Stain - Final 06/08/19 22:49 Sputum - Expectorated Sputum Sputum Culture - Final Normal Respiratory Melody - Constitutional no acute distress, obese - *Routine HEENT Exam Head: Present: normocephalic Eye: Present: EOMI, PERRL ENT: Present: mucous membranes dry - *Routine Neck Exam Absent: JVD - *Routine Respiratory Exam Present: decreased breath sounds - *Routine Cardiovascular Exam Present: RRR, murmur, S4 - *Routine Abdominal Exam Present: soft - *Routine Extremities Exam Absent: Devan's sign - *Routine Skin Exam Present: intact - *Routine Neurological Exam Present: alert, CN II-XII intact - Routine Psychiatric Exam Present: unable to assess Assessment and Plan (1) CHF (congestive heart failure) Current visit: Yes Status: Acute Qualifiers: Heart failure type: unspecified Heart failure chronicity: acute on chronic Qualified Code(s): I50.9 - Heart failure, unspecified Category: Medical Code(s): I50.9 - Heart failure, unspecified (2) CAD (coronary artery disease) Current visit: Yes Status: Chronic Qualifiers: Coronary Disease-Associated Artery/Lesion type: [place] artery [place] vs. transplanted heart: [place] heart Associated angina: without angina Qualified Code(s): I25.10 - Atherosclerotic heart disease of [place] coronary artery without angina pectoris Category: Medical Code(s): I25.10 - Atherosclerotic heart disease of [place] coronary artery without angina pectoris (3) Diabetes mellitus, insulin dependent (IDDM), uncontrolled Current visit: Yes Status: Chronic Qualifiers: Glycemic state: with hyperglycemia Qualified Code(s): E10.65 - Type 1 diabetes mellitus with hyperglycemia Category: Medical Code(s): E10.65 - Type 1 diabetes mellitus with hyperglycemia (4) HCAP (healthcare-associated pneumonia) Current visit: No Status: Acute Category: Medical Code(s): J18.9 - Pneumonia, unspecified organism (5) Obesity (BMI 30-39.9) Current visit: No Status: Acute Category: Medical Code(s): E66.9 - Obesity, unspecified (6) COPD (chronic obstructive pulmonary disease) Current visit: Yes Status: Acute Category: Medical Code(s): J44.9 - Chronic obstructive pulmonary disease, unspecified (7) Ischemic cardiomyopathy Current visit: Yes Status: Chronic Category: Medical Code(s): I25.5 - Ischemic cardiomyopathy (8) A-fib Current visit: No Status: Chronic Qualifiers: Atrial fibrillation type: paroxysmal Qualified Code(s): I48.0 - Paroxysmal atrial fibrillation Category: Medical Code(s): I48.91 - Unspecified atrial fibrillation (9) Hypertension Current visit: No Status: Chronic Qualifiers: Hypertension type: essential hypertension Qualified Code(s): I10 - Essential (primary) hypertension Category: Medical Code(s): I10 - Essential (primary) hypertension (10) Mitral valve regurgitation Current visit: No Status: Chronic Qualifiers: Cardiac valve disease etiology: etiology unspecified Qualified Code(s): I34.0 - Nonrheumatic mitral (valve) insufficiency Category: Medical Code(s): I34.0 - Nonrheumatic mitral (valve) insufficiency (11) Chronic kidney disease Current visit: Yes Status: Chronic Category: Medical Code(s): N18.9 - Chronic kidney disease, unspecified (12) Pneumonia Current visit: Yes Status: Acute Category: Medical Code(s): J18.9 - Pneumonia, unspecified organism
[2019-06-13 07:05] LABS: Basophils % 0.1 % (0.1-2.0); Eosinophils # 0.1 K/mm3 (0.0-0.4); Eosinophils % 1.3 % (0.1-12.0); Hemoglobin 9.2 g/dL (14.1-18.0); Lymphocytes # 0.9 K/mm3 (0.7-4.5); Lymphocytes % 10.2 % (10-50); Mean Corpuscular HGB Conc 30.7 g/dL (31.8-35.4); Mean Corpuscular Volume 97.9 fl (80-94); Mean Platelet Volume 7.5 fl (7.4-10.4); Monocytes # 0.7 K/mm3 (0.1-1.0); Monocytes % 7.8 % (1.7-9.3); Neutrophils # 7.3 K/mm3 (1.8-7.8); Neutrophils % 80.6 % (37.0-80.0); Platelet Count 377 K/mm3 (142-424); Red Blood Count 3.06 M/mm3 (4.60-6.20); Red Cell Distribution Width 16.5 % (11.5-17.5)
[2019-06-13 07:15] LABS: Anion Gap 12.1 mEq/L (5-15); Calcium 8.8 mg/dL (8.5-10.1)
--- NOTE | 2019-06-13 09:59 | Progress Note ---
Internal Medicine - PN: Subj *Date: 06/13/19 *Time: 09:57 Interval history: doing better this am Exam Vital signs and Labs for Last 24 Hours: Temp Pulse Resp BP Pulse Ox 98.1 F 104 H 18 154/96 H 93 L 06/13/19 04:00 06/13/19 08:38 06/13/19 04:00 06/13/19 04:00 06/13/19 06:43 Laboratory Results - last 24 hr 06/12/19 11:06: POC Glucose 310 H* 06/12/19 16:15: POC Glucose 295 H 06/12/19 20:39: POC Glucose 264 H 06/13/19 06:35: WBC 9.0, RBC 3.06 L, Hgb 9.2 L, Hct 30.0 L, MCV 97.9 H, MCH 30.1, MCHC 30.7 L, RDW 16.5, Plt Count 377, MPV 7.5, Neut % (Auto) 80.6 H, Lymph % (Auto) 10.2, [place] % (Auto) 7.8, Eos % (Auto) 1.3, Baso % (Auto) 0.1, Neut # (Auto) 7.3, Lymph # (Auto) 0.9, [place] # (Auto) 0.7, Eos # (Auto) 0.1, Baso # (Auto) 0.0 06/13/19 06:35: Sodium 132 L, Potassium 4.1, Chloride 96 L, Carbon Dioxide 28, Anion Gap 12.1, BUN 57 H, Creatinine 2.13 H, Estimated Creat Clear 44, Estimated GFR 31 L, Est GFR ( Amer) 37 L, Glucose 264 H, Calcium 8.8 I & O for Last 24 hours: Intake & Output 06/10/19 06/11/19 06/12/19 06/13/19 11:59 11:59 11:59 11:59 Intake Total 720 / 720 1220 / 1220 820 / 820 937 / 937 Output Total 1700 / 1700 Balance -980 / -980 1220 / 1220 820 / 820 937 / 937 Weight 224 lb 2 oz 223 lb 8 oz 223 lb 8.004 oz 220 lb 4 oz Microbiology Reports for the Last 24 Hours: Microbiology 06/07/19 16:50 Blood Blood Culture - Final NO GROWTH AFTER 5 DAYS 06/07/19 16:50 Blood Blood Culture - Final NO GROWTH AFTER 5 DAYS 06/08/19 22:49 Sputum - Expectorated Sputum Gram Stain - Final 06/08/19 22:49 Sputum - Expectorated Sputum Sputum Culture - Final Normal Respiratory Melody - Constitutional no acute distress - *Routine HEENT Exam Head: Present: normocephalic Eye: Present: EOMI, PERRL ENT: Present: mucous membranes dry - *Routine Neck Exam Present: supple - *Routine Respiratory Exam Present: decreased breath sounds - *Routine Cardiovascular Exam Present: RRR, murmur - *Routine Abdominal Exam Present: soft - *Routine Extremities Exam Absent: edema - *Routine Skin Exam Present: intact - *Routine Neurological Exam Present: alert. Absent: CN II-XII intact - Routine Psychiatric Exam Present: anxious Assessment and Plan (1) CHF (congestive heart failure) Current visit: Yes Status: Acute Qualifiers: Heart failure type: unspecified Heart failure chronicity: acute on chronic Qualified Code(s): I50.9 - Heart failure, unspecified Category: Medical Code(s): I50.9 - Heart failure, unspecified (2) CAD (coronary artery disease) Current visit: Yes Status: Chronic Qualifiers: Coronary Disease-Associated Artery/Lesion type: [place] artery [place] vs. transplanted heart: [place] heart Associated angina: without angina Qualified Code(s): I25.10 - Atherosclerotic heart disease of [place] coronary artery without angina pectoris Category: Medical Code(s): I25.10 - Atherosclerotic heart disease of [place] coronary artery without angina pectoris (3) Diabetes mellitus, insulin dependent (IDDM), uncontrolled Current visit: Yes Status: Chronic Qualifiers: Glycemic state: with hyperglycemia Qualified Code(s): E10.65 - Type 1 diabetes mellitus with hyperglycemia Category: Medical Code(s): E10.65 - Type 1 diabetes mellitus with hyperglycemia (4) HCAP (healthcare-associated pneumonia) Current visit: No Status: Acute Category: Medical Code(s): J18.9 - Pneumonia, unspecified organism (5) Obesity (BMI 30-39.9) Current visit: No Status: Acute Category: Medical Code(s): E66.9 - Obesity, unspecified (6) COPD (chronic obstructive pulmonary disease) Current visit: Yes Status: Acute Category: Medical Code(s): J44.9 - Chronic obstructive pulmonary disease, unspecified (7) Ischemic cardiomyopathy Current visit: Yes Status: Chronic Category: Medical Code(s): I25.5 - Ischemic cardiomyopathy (8) A-fib Current visit: No Status: Chronic Qualifiers: Atrial fibrillation type: paroxysmal Qualified Code(s): I48.0 - Paroxysmal atrial fibrillation Category: Medical Code(s): I48.91 - Unspecified atrial fibrillation (9) Hypertension Current visit: No Status: Chronic Qualifiers: Hypertension type: essential hypertension Qualified Code(s): I10 - Essential (primary) hypertension Category: Medical Code(s): I10 - Essential (primary) hypertension (10) Mitral valve regurgitation Current visit: No Status: Chronic Qualifiers: Cardiac valve disease etiology: etiology unspecified Qualified Code(s): I34.0 - Nonrheumatic mitral (valve) insufficiency Category: Medical Code(s): I34.0 - Nonrheumatic mitral (valve) insufficiency (11) Chronic kidney disease Current visit: Yes Status: Chronic Category: Medical Code(s): N18.9 - Chronic kidney disease, unspecified (12) Pneumonia Current visit: Yes Status: Acute Category: Medical Code(s): J18.9 - Pneumonia, unspecified organism
--- NOTE | 2019-06-13 13:31 | Progress Note ---
Internal Medicine - PN: Subj *Date: 06/13/19 *Time: 13:31 Exam Vital signs and Labs for Last 24 Hours: Temp Pulse Resp BP Pulse Ox 98.0 F 74 18 134/75 95 06/13/19 12:00 06/13/19 12:00 06/13/19 12:00 06/13/19 12:00 06/13/19 12:00 Laboratory Results - last 24 hr 06/12/19 16:15: POC Glucose 295 H 06/12/19 20:39: POC Glucose 264 H 06/13/19 06:35: WBC 9.0, RBC 3.06 L, Hgb 9.2 L, Hct 30.0 L, MCV 97.9 H, MCH 30.1, MCHC 30.7 L, RDW 16.5, Plt Count 377, MPV 7.5, Neut % (Auto) 80.6 H, Lymph % (Auto) 10.2, [place] % (Auto) 7.8, Eos % (Auto) 1.3, Baso % (Auto) 0.1, Neut # (Auto) 7.3, Lymph # (Auto) 0.9, [place] # (Auto) 0.7, Eos # (Auto) 0.1, Baso # (Auto) 0.0 06/13/19 06:35: Sodium 132 L, Potassium 4.1, Chloride 96 L, Carbon Dioxide 28, Anion Gap 12.1, BUN 57 H, Creatinine 2.13 H, Estimated Creat Clear 44, Estimated GFR 31 L, Est GFR ( Amer) 37 L, Glucose 264 H, Calcium 8.8 I & O for Last 24 hours: Intake & Output 06/10/19 06/11/19 06/12/19 06/13/19 23:59 23:59 23:59 23:59 Intake Total 1120 / 1120 920 / 920 580 / 700 1077 / 1077 Output Total 1200 / 1200 400 / 400 Balance -80 / -80 920 / 920 580 / 700 677 / 677 Weight 101.661 kg 101.378 kg 101.378 kg 99.904 kg Microbiology Reports for the Last 24 Hours: Microbiology 06/07/19 16:50 Blood Blood Culture - Final NO GROWTH AFTER 5 DAYS 06/07/19 16:50 Blood Blood Culture - Final NO GROWTH AFTER 5 DAYS Assessment and Plan (1) CHF (congestive heart failure) Current visit: Yes Status: Acute Qualifiers: Heart failure type: unspecified Heart failure chronicity: acute on chronic Qualified Code(s): I50.9 - Heart failure, unspecified Category: Medical Code(s): I50.9 - Heart failure, unspecified (2) CAD (coronary artery disease) Current visit: Yes Status: Chronic Qualifiers: Coronary Disease-Associated Artery/Lesion type: [place] artery [place] vs. transplanted heart: [place] heart Associated angina: without angina Qualified Code(s): I25.10 - Atherosclerotic heart disease of [place] coronary artery without angina pectoris Category: Medical Code(s): I25.10 - Atherosclerotic heart disease of [place] coronary artery without angina pectoris (3) Diabetes mellitus, insulin dependent (IDDM), uncontrolled Current visit: Yes Status: Chronic Qualifiers: Glycemic state: with hyperglycemia Qualified Code(s): E10.65 - Type 1 diabetes mellitus with hyperglycemia Category: Medical Code(s): E10.65 - Type 1 diabetes mellitus with hyperglycemia (4) HCAP (healthcare-associated pneumonia) Current visit: No Status: Acute Category: Medical Code(s): J18.9 - Pneumonia, unspecified organism (5) Obesity (BMI 30-39.9) Current visit: No Status: Acute Category: Medical Code(s): E66.9 - Obesity, unspecified (6) COPD (chronic obstructive pulmonary disease) Current visit: Yes Status: Acute Category: Medical Code(s): J44.9 - Chronic obstructive pulmonary disease, unspecified (7) Ischemic cardiomyopathy Current visit: Yes Status: Chronic Category: Medical Code(s): I25.5 - Ischemic cardiomyopathy (8) A-fib Current visit: No Status: Chronic Qualifiers: Atrial fibrillation type: paroxysmal Qualified Code(s): I48.0 - Paroxysmal atrial fibrillation Category: Medical Code(s): I48.91 - Unspecified atrial fibrillation (9) Hypertension Current visit: No Status: Chronic Qualifiers: Hypertension type: essential hypertension Qualified Code(s): I10 - Essential (primary) hypertension Category: Medical Code(s): I10 - Essential (primary) hypertension (10) Mitral valve regurgitation Current visit: No Status: Chronic Qualifiers: Cardiac valve disease etiology: etiology unspecified Qualified Code(s): I34.0 - Nonrheumatic mitral (valve) insufficiency Category: Medical Code(s): I34.0 - Nonrheumatic mitral (valve) insufficiency (11) Chronic kidney disease Current visit: Yes Status: Chronic Category: Medical Code(s): N18.9 - Chronic kidney disease, unspecified (12) Pneumonia Current visit: Yes Status: Acute Category: Medical Code(s): J18.9 - Pneumonia, unspecified organism The patient's infection will respond to the chosen ABx?: Yes Is the patient receiving the right drug, dose, and route?: Yes Could a more targeted ABx be ordered?: No
[2019-06-14 06:31] LABS: Basophils % 0.1 % (0.1-2.0); Eosinophils # 0.2 K/mm3 (0.0-0.4); Eosinophils % 1.7 % (0.1-12.0); Hematocrit 30.5 % (42.0-52.0); Hemoglobin 9.4 g/dL (14.1-18.0); Lymphocytes # 1.1 K/mm3 (0.7-4.5); Lymphocytes % 10.5 % (10-50); Mean Corpuscular HGB Conc 30.8 g/dL (31.8-35.4); Mean Corpuscular Volume 96.4 fl (80-94); Mean Platelet Volume 7.2 fl (7.4-10.4); Monocytes # 0.9 K/mm3 (0.1-1.0); Monocytes % 8.7 % (1.7-9.3); Neutrophils % 78.9 % (37.0-80.0); Platelet Count 360 K/mm3 (142-424); Red Blood Count 3.17 M/mm3 (4.60-6.20); Red Cell Distribution Width 16.4 % (11.5-17.5); White Blood Count 10.1 K/mm3 (4.8-10.8)
[2019-06-14 06:32] LABS: Anion Gap 14.2 mEq/L (5-15); Calcium 8.8 mg/dL (8.5-10.1)
--- NOTE | 2019-06-14 08:46 | Progress Note ---
Subjective Date: 06/14/19 Time: 08:42 Principal diagnosis: CHF Interval history: 74 yo WM in bed in no acute distress. Shortness of breath has improved. He denies any complaints this morning. Exam Vital signs and Labs for Last 24 Hours: Temp Pulse Resp BP Pulse Ox 98.5 F 85 22 160/92 H 94 L 06/14/19 08:00 06/14/19 08:00 06/14/19 08:00 06/14/19 08:00 06/14/19 08:00 Laboratory Results - last 24 hr 06/13/19 06:09: POC Glucose 272 H 06/13/19 11:19: POC Glucose 303 H* 06/13/19 16:25: POC Glucose 331 H* 06/13/19 20:28: POC Glucose 349 H* 06/14/19 05:47: WBC 10.1, RBC 3.17 L, Hgb 9.4 L, Hct 30.5 L, MCV 96.4 H, MCH 29.6, MCHC 30.8 L, RDW 16.4, Plt Count 360, MPV 7.2 L, Neut % (Auto) 78.9, Lymph % (Auto) 10.5, [place] % (Auto) 8.7, Eos % (Auto) 1.7, Baso % (Auto) 0.1, Neut # (Auto) 8.0 H, Lymph # (Auto) 1.1, [place] # (Auto) 0.9, Eos # (Auto) 0.2, Baso # (Auto) 0.0 06/14/19 05:47: Sodium 135 L, Potassium 4.2, Chloride 98, Carbon Dioxide 27, Anion Gap 14.2, BUN 53 H, Creatinine 2.02 H, Estimated Creat Clear 45, Estimated GFR 33 L, Est GFR ( Amer) 39 L, Glucose 242 H, Calcium 8.8 I & O for Last 24 hours: Intake & Output 06/11/19 06/12/19 06/13/19 06/14/19 11:59 11:59 11:59 11:59 Intake Total 1220 / 1220 820 / 820 1177 / 1177 700 / 700 Output Total 575 / 575 Balance 1220 / 1220 820 / 820 1177 / 1177 125 / 125 Weight 223 lb 8 oz 223 lb 8.004 oz 220 lb 4 oz 216 lb 4 oz - *Routine HEENT Exam Head: Present: normocephalic Eye: Present: EOMI, PERRL ENT: Present: mucous membranes moist - *Routine Respiratory Exam Present: CTA bilaterally. Absent: accessory muscle use, rales, rhonchi, wheezes - *Routine Cardiovascular Exam Present: irregularly irregular. Absent: murmur, gallop, rubs - *Routine Extremities Exam Absent: edema, calf tenderness - *Routine Neurological Exam Present: alert, oriented X3, moving all extremities Progress Note: A&P (1) CHF (congestive heart failure) Status: Acute Current Visit: Yes (2) CAD (coronary artery disease) Status: Chronic Current Visit: Yes (3) Diabetes mellitus, insulin dependent (IDDM), uncontrolled Status: Chronic Current Visit: Yes (4) HCAP (healthcare-associated pneumonia) Status: Acute Current Visit: No (5) Obesity (BMI 30-39.9) Status: Acute Current Visit: No (6) COPD (chronic obstructive pulmonary disease) Status: Acute Current Visit: Yes (7) Ischemic cardiomyopathy Status: Chronic Current Visit: Yes (8) A-fib Status: Chronic Current Visit: No (9) Hypertension Status: Chronic Current Visit: No (10) Mitral valve regurgitation Status: Chronic Current Visit: No (11) Chronic kidney disease Status: Chronic Current Visit: Yes (12) Pneumonia Status: Acute Current Visit: Yes Assessment and Plan for All Diagnoses:: 1. Congestive heart failure, both systolic and diastolic, clinically improved with a 12 pound weight loss during this admission. 2. Chronic kidney disease, stage II with BUN 53 and creatinine 2.02, stable 3. Hypertension, not to goal despite increased Coreg, irbesartan and amlodipine therapy. 4. Okay for discharge from cardiology standpoint with medication recommendations: Coreg 50 mg twice daily, irbesartan 150 twice daily, Lasix 40 mg twice daily, amlodipine 10 mg daily, digoxin 0.125 mg daily, Imdur 30 mg daily, aspirin 81 mg daily, Xarelto 15 mg daily, spironolactone 25 mg daily. 5. Follow-up in 1 week to discuss outpatient scheduling of Cardio[facility] placement.
--- NOTE | 2019-06-14 12:51 | Discharge Summary ---
General - General Admission date:: 06/07/19 Discharge date: 06/14/19 HPI HPI: 74-year-old male presents to the ER with complaints of shortness of breath and weakness that has been gradually becoming worse but yesterday was unable to catch his breath. At the intermediate his oxygen saturation was 86% on 4 L nasal cannula. Patient was admitted for right lower lobe pneumonia. History of congestive heart failure BNP was over thousand. Will have cardiology consult. Will have speech eval at bedside to rule out aspiration. Will change antibiotics to healthcare acquired. Will change p.o. Lasix to IV Lasix. Obtain echo Hospital Course Hospital Course: this wm who was [facility]on [facility] for sob -with hcap and chf - he was placed on ivf and abx - he was seen by card -1. DM, treated since 2015 2. HTN A. CHF, recurrent B. Echo, 12/2017, LVEF 45% with distal septum and apical hypokinesis. Mild AI, MR, TR. C. Echo, 04/2018, LVEF 50% with concentric LVH, hypokinesis of inferolateral wall, mild , Moderate MR and mild TR D. Echo, 08/2018, LVEF 40% with moderate to severe MR E. Echo, 11/2018, extremely poor, very difficult study, LVEF 40-45% with hypokinesis in the inferobasal wall. Left atrial size 3.1 cm moderate to severe mitral regurgitation seen. Mild MR and TR. Inadequate for calculation of the right ventricular systolic pressure. F. Echo, 02/2019, Difficult study, LAE, normal LV size with mild conc LVH, EF 40-45% without wall motion abnormality. Mild STEFFI and RVE with pacemaker lead noted. Thickened and calcified aortic valve without aortic stenosis. Moderate MR and TR. 3. Hyperlipidemia, on statin 4. Remote tobacco use 5. 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 Fractured hip, 2017 status post repair A. Left femur fracture after fall, 11/2018 7. Hypothyroidism, on supplement 8. CAD A. NSTEMI, 09/2017 B. Cardiac cath, 09/2017, mild CAD of left main, LAD and RCA with dominant circumflex with mid vessel occlusion. BHARTI to circumflex placed. LVEF 40% with LVEDP 50 mm Hg C. Cardiac cath, 06/2018, 1. The left main artery normal 2. The left anterior descending artery has proximal mild luminal irregularities nothing greater than 10% 3. The circumflex artery is a large dominant vessel with mild 10% luminal irregularities 4. The right coronary artery small vestigial normal 5. The GRIDER ventriculogram reveals normal 65% 6. The left ventricular end-diastolic pressure 20 mmHg 9. History of A. fib, 08/2018, converted with IV medications but now chronic A. Xarelto therapy 0. Cardiomyopathy, ischemic A. Recurrent CHF related to cardiomyopathy, dietary non-compliance and possible medication discrepancy 11. Chronic anemia with Hgb around 9-10 12. CKD, stage 3 with Cr 1.7 and GFR 39 History of present illness: 74-year-old male presents to the ER with complaints of shortness of breath and weakness that has been gradually becoming worse but yesterday was unable to catch his breath. At the intermediate his oxygen saturation was 86% on 4 L nasal cannula. Patient was admitted for right lower lobe pneumonia. History of congestive heart failure BNP was over thousand. Will have cardiology consult. Will have speech eval at bedside to rule out aspiration. Will change antibiotics to healthcare acquired. Will change p.o. Lasix to IV Lasix. Obtain echo The above per BRANDYN Calvert Pt was hospitalized in 03/2019 for similar scenario and was willing to proceed with outpatient placement of CardioMEMS device to monitor CHF. He later changed his mind. pt did better with iv diuretic and medicine changes - he has slowly improved and able to sit and evelyn diet and will be returned to [facility] and close f/u with surg ssessment and Plan for All Diagnoses:: 1. Congestive heart failure, both systolic and diastolic, clinically improved with a 12 pound weight loss during this admission. 2. Chronic kidney disease, stage II with BUN 53 and creatinine 2.02, stable 3. Hypertension, not to goal despite increased Coreg, irbesartan and amlodipine therapy. 4. Okay for discharge from cardiology standpoint with medication recommendations: Coreg 50 mg twice daily, irbesartan 150 twice daily, Lasix 40 mg twice daily, amlodipine 10 mg daily, digoxin 0.125 mg daily, Imdur 30 mg daily, aspirin 81 mg daily, Xarelto 15 mg daily, spironolactone 25 mg daily. 5. Follow-up in 1 week to discuss outpatient scheduling of CardioMEMS placement. Objective Vital signs: Temp Pulse Resp BP Pulse Ox 98.5 F 76 22 160/92 H 94 L 06/14/19 08:00 06/14/19 09:58 06/14/19 08:00 06/14/19 08:00 06/14/19 08:00 no acute distress, obese - *Routine HEENT Exam Head: Present: normocephalic Eye: Present: EOMI, PERRL ENT: Present: mucous membranes dry - *Routine Neck Exam Present: supple. Absent: JVD - *Routine Respiratory Exam Present: decreased breath sounds, prolonged expiratory phase - *Routine Cardiovascular Exam Present: RRR, murmur, S4 - *Routine Abdominal Exam Present: soft - *Routine Extremities Exam Present: edema. Absent: calf tenderness - *Routine Skin Exam Present: intact - *Routine Neurological Exam Present: alert, oriented X3, CN II-XII intact - Routine Psychiatric Exam Present: anxious Results Labs on day of discharge: Labs from last 24 hours 06/14/19 06/14/19 06/14/19 11:25 06:19 05:47 WBC RBC Hgb Hct MCV MCH MCHC RDW Plt Count MPV Neut % (Auto) Lymph % (Auto) Isabella % (Auto) Eos % (Auto) Baso % (Auto) Neut # (Auto) Lymph # (Auto) [place] # (Auto) Eos # (Auto) Baso # (Auto) Sodium Potassium Chloride Carbon Dioxide Anion Gap BUN Creatinine Estimated Creat Clear Estimated GFR Est GFR ( Amer) Glucose POC Glucose 233 H 258 H Calcium B-Natriuretic Peptide 1160 H 06/14/19 06/14/19 06/13/19 05:47 05:47 20:28 WBC 10.1 RBC 3.17 L Hgb 9.4 L Hct 30.5 L MCV 96.4 H MCH 29.6 MCHC 30.8 L RDW 16.4 Plt Count 360 MPV 7.2 L Neut % (Auto) 78.9 Lymph % (Auto) 10.5 Isabella % (Auto) 8.7 Eos % (Auto) 1.7 Baso % (Auto) 0.1 Neut # (Auto) 8.0 H Lymph # (Auto) 1.1 Isabella # (Auto) 0.9 Eos # (Auto) 0.2 Baso # (Auto) 0.0 Sodium 135 L Potassium 4.2 Chloride 98 Carbon Dioxide 27 Anion Gap 14.2 BUN 53 H Creatinine 2.02 H Estimated Creat Clear 45 Estimated GFR 33 L Est GFR ( Amer) 39 L Glucose 242 H POC Glucose 349 H* Calcium 8.8 B-Natriuretic Peptide 06/13/19 06/13/19 06/13/19 16:25 11:19 06:09 WBC RBC Hgb Hct MCV MCH MCHC RDW Plt Count MPV Neut % (Auto) Lymph % (Auto) [place] % (Auto) Eos % (Auto) Baso % (Auto) Neut # (Auto) Lymph # (Auto) [place] # (Auto) Eos # (Auto) Baso # (Auto) Sodium Potassium Chloride Carbon Dioxide Anion Gap BUN Creatinine Estimated Creat Clear Estimated GFR Est GFR ( Amer) Glucose POC Glucose 331 H* 303 H* 272 H Calcium B-Natriuretic Peptide DS: Diagnosis - Discharge Diagnosis (1) CHF (congestive heart failure) Status: Acute (2) CAD (coronary artery disease) Status: Chronic (3) Diabetes mellitus, insulin dependent (IDDM), uncontrolled Status: Chronic (4) HCAP (healthcare-associated pneumonia) Status: Acute (5) Obesity (BMI 30-39.9) Status: Acute (6) COPD (chronic obstructive pulmonary disease) Status: Acute (7) Ischemic cardiomyopathy Status: Chronic (8) A-fib Status: Chronic (9) Hypertension Status: Chronic (10) Mitral valve regurgitation Status: Chronic (11) Chronic kidney disease Status: Chronic (12) Pneumonia Status: Acute (13) Anemia Status: Acute Discharge Plan - Patient Discharge Instructions ACTIVITY: Continue current activity DIET: continue same diet Patient Instructions: Pneumonia-Adult, Chronic Obstructive Pulmonary Disease, Heart Failure, DI for Heart Failure, DI for Chronic Obstructive Pulmonary Disease, DI for Pneumonia -- Adult - Follow up Plan Disposition: Xfer [facility] Home Medications: Home Medications Medication Instructions Recorded Confirmed Type ascorbic acid (vitamin C) 500 mg 500 mg PO DAILY tab 10/30/17 06/07/19 History tablet atorvastatin 40 mg tablet 40 mg PO HS 10/30/17 06/07/19 History ferrous sulfate 325 mg (65 mg 325 mg PO Q48H tab 10/30/17 06/07/19 History iron) tablet levothyroxine 50 mcg tablet 50 mcg PO DAILY tab 10/30/17 06/07/19 History Duloxetine HCl [Cymbalta 30mg 60 mg PO DAILY 04/12/18 06/07/19 History capsule] carBAMazepine [Tegretol 100mg 100 mg PO BID 08/23/18 06/07/19 History tablet] Acetaminophen [Acetaminophen 325mg 500 mg PO Q6HP PRN 11/23/18 06/08/19 History tab] Docusate Sodium [Colace 250mg 250 mg PO BID 11/23/18 06/07/19 History capsule] Fluticasone Propionate [Flonase 1 spr NS DAILY 11/23/18 06/07/19 History 50mcg nasal spray 16gm] Isosorbide Mononitrate [Imdur 30mg 30 mg PO DAILY 11/23/18 06/07/19 History ER tablet] Trazodone HCl 100 mg PO HS 03/11/19 06/07/19 History Aspirin [Aspirin 325mg Tab] 325 mg PO BID 03/12/19 06/07/19 History Insulin Glargine,Hum.rec.anlog 35 unit SQ HS 03/12/19 06/07/19 History [Lantus Insulin 100units/mL 10mL vial] Furosemide [Furosemide 40MG tAB] 40 mg PO BID 04/01/19 06/07/19 History Oxycodone HCl [Oxycodone (IR) 5mg 5 mg PO Q4HP PRN 04/01/19 06/07/19 History Cap] Rivaroxaban [Xarelto 15mg tablet] 15 mg PO QPMWM 04/01/19 06/08/19 History Carvedilol [Coreg 25mg Tablet] 37.5 mg PO BID 05/10/19 06/07/19 History Valsartan [Valsartan 160mg 160 mg PO DAILY 05/10/19 06/07/19 History Tablets] Amlodipine Besylate 10 mg PO DAILY 06/07/19 06/07/19 History Carboxymethylcellulose Sodium 1 each OP BIDP PRN 06/07/19 06/08/19 History [Thera Tears] Cholecalciferol (Vitamin D3) 2,000 unit PO DAILY 06/08/19 06/08/19 History [Vitamin D3] Insulin Aspart [Novolog] 0 unit SQ ACHS 06/08/19 06/08/19 History Insulin NPH Hum/Reg Insulin Hm 31 unit SQ BID 06/08/19 06/08/19 History [Novolin 70-30 Flexpen] Aspirin [Aspirin 81mg chewable 81 mg PO DAILY #30 tab.chew 06/14/19 Rx tab] Carvedilol [Coreg 25mg Tablet] 50 mg PO BID #120 tab 06/14/19 Rx Digoxin [Digoxin 0.125mg Tablet] 125 mcg PO DAILY #30 tab 06/14/19 Rx Spironolactone [Aldactone 25mg Tab] 25 mg PO DAILY #30 tab 06/14/19 Rx levoFLOXacin [Levaquin 500mg 500 mg PO DAILY #7 tab 06/14/19 Rx tab] Prescriptions/Medication Reconciliation: New Trazodone HCl [Desyrel 50mg tablet] 100 mg PO HS tablet Spironolactone [Aldactone 25mg Tab] 25 mg PO DAILY #30 tab Carvedilol [Coreg 25mg Tablet] 50 mg PO BID #120 tab levoFLOXacin [Levaquin 500mg tab] 500 mg PO DAILY #7 tab Irbesartan [Avapro 150mg tablet] 150 mg PO BID tablet Aspirin [Aspirin 81mg chewable tab] 81 mg PO DAILY #30 tab.chew Continued atorvastatin 40 mg tablet 40 mg PO HS ferrous sulfate 325 mg (65 mg iron) tablet 325 mg PO Q48H tab levothyroxine 50 mcg tablet 50 mcg PO DAILY tab ascorbic acid (vitamin C) 500 mg tablet 500 mg PO DAILY tab Duloxetine HCl [Cymbalta 30mg capsule] 60 mg PO DAILY Isosorbide Mononitrate [Imdur 30mg ER tablet] 30 mg PO DAILY Fluticasone Propionate [Flonase 50mcg nasal spray 16gm] 1 spr NS DAILY Acetaminophen [Acetaminophen 325mg tab] 500 mg PO Q6HP PRN PRN Reason: As Needed For Fever Or Pain Docusate Sodium [Colace 250mg capsule] 250 mg PO BID Insulin Glargine,Hum.rec.anlog [Lantus Insulin 100units/mL 10mL vial] 35 unit SQ HS Rivaroxaban [Xarelto 15mg tablet] 15 mg PO QPMWM Oxycodone HCl [Oxycodone (IR) 5mg Cap] 5 mg PO Q4HP PRN PRN Reason: Moderate Pain Carboxymethylcellulose Sodium [Thera Tears] 1 each OP BIDP PRN PRN Reason: DRY EYES Amlodipine Besylate 10 mg PO DAILY Insulin Aspart [Novolog] 0 unit SQ ACHS Insulin NPH Hum/Reg Insulin Hm [Novolin 70-30 Flexpen] 31 unit SQ BID Digoxin [Digoxin 0.125mg Tablet] 125 mcg PO DAILY #30 tab carBAMazepine [Tegretol 100mg tablet] 100 mg PO BID Furosemide [Furosemide 40MG tAB] 40 mg PO BID Cholecalciferol (Vitamin D3) [Vitamin D3] 2,000 unit PO DAILY Discontinued Aspirin [Aspirin 325mg Tab] 325 mg PO BID Valsartan [Valsartan 160mg Tablets] 160 mg PO DAILY Carvedilol [Coreg 25mg Tablet] 37.5 mg PO BID Trazodone HCl 100 mg PO HS - Problem Reconciliation Problems Reviewed?: Yes
== END 2019-06-14 14:35 | DRG 193 ==
LOC: ER 16:53 → 2ND 19:10
PROVIDERS: ADMIT Internal Medicine Adolescent Medicine; ATTEND Emergency Medicine
CPT/HCPCS: 36415; 71010; 71045; 73030; 80048; 82803; 82962; 83605; 83880; 84484; 85007; 85025; 87040; 87070; 87205; 92610; 93005; 94640; 94761; 96367; 96374; 96375; 97110; 97161; 97166; 97530; 99284; J1956

== ENCOUNTER → 2019-06-23 14:06 | Outpatient (CLI) | payer MEDICARE, SELFPAY ==
[2019-06-23 17:13] LABS: Anion Gap 13.8 mEq/L (5-15); Blood Urea Nitrogen 38 mg/dL (7-18); Calcium 8.3 mg/dL (8.5-10.1); Carbon Dioxide 26 mmol/L (21.0-32.0); Chloride 103 mmol/L (98-107); Creatinine,Serum 1.77 mg/dL (0.70-1.30); Estimated Glomerular Filt Rate 38 ml/min (>60); GFR (African American) 46 ML/MIN (>60); Glucose 365 mg/dL (74-106); Potassium 4.8 mmoL/L (3.5-5.1); Sodium 138 mmol/L (136-145)
== END ==
PROVIDERS: Visit Provider Urology
DX: I50.9 Heart failure, unspecified (principal)
CPT/HCPCS: 36415; 80048

== ENCOUNTER 2020-01-01 07:39 | Inpatient (IN) ==
[2020-01-01 07:53] LABS: ABG Base Excess -2.7 mmol/L (-2.4-2.3); ABG HCO3 21.2 mmhg (22.0-26.0); ABG Oxygen Saturation 97 % (90-100); ABG PCO2 31.1 mmhg (35.0-45.0); ABG PH 7.45 mmol/L (7.35-7.45); ABG PO2 84.1 mmhg (80-100); ABG TCO2 22.2 mmhg (23-27)
[2020-01-01 08:09] LABS: Appearance,Urine TURBID (Clear); Bilirubin,Urine Negative (Negative); Blood, Urine 3+ (Negative); Color,Urine YELLOW (Yellow); Glucose,Urine (UA) Negative (Negative); Ketones,Urine Negative (Negative); Leukocyte Esterase,Urine 3+ (Negative); Microscopic, Urine URINE MICROSCOPIC (MICROSCOPIC); Protein,Urine 2+ (Negative); Urobilinogen,Urine 0.2 EU/dl (0.2)
[2020-01-01 08:11] LABS: Coronavirus 229E Not Detected (NotDetected); Coronavirus NL63 Not Detected (NotDetected); Coronavirus OC43 Not Detected (NotDetected); Coronovirus HKU1,PCR Not Detected (NotDetected)
[2020-01-01 08:13] LABS: Basophils % 0.3 % (0.1-2.0); Eosinophils # 0.2 K/mm3 (0.0-0.4); Eosinophils % 1.1 % (0.1-12.0); Hematocrit 40.5 % (42.0-52.0); Hemoglobin 13.5 g/dL (14.1-18.0); Lymphocytes # 1.4 K/mm3 (0.7-4.5); Lymphocytes % 9.6 % (10-50); Mean Corpuscular HGB Conc 33.3 g/dL (31.8-35.4); Mean Corpuscular Volume 95.1 fl (80-94); Mean Platelet Volume 8.3 fl (7.4-10.4); Monocytes # 0.6 K/mm3 (0.1-1.0); Monocytes % 3.8 % (1.7-9.3); Neutrophils # 12.4 K/mm3 (1.8-7.8); Neutrophils % 85.3 % (37.0-80.0); Platelet Count 382 K/mm3 (142-424); Red Blood Count 4.25 M/mm3 (4.60-6.20); Red Cell Distribution Width 15.9 % (11.5-17.5); White Blood Count 14.5 K/mm3 (4.8-10.8)
[2020-01-01 08:26] LABS: Albumin Level 3.9 g/dl (3.5-5.0); Albumin/Globulin Ratio 0.9 (1.1-1.8); Anion Gap 18.1 mEq/L (5-15); Bilirubin,Total 0.9 mg/dl (0.2-1.3); Calcium 9.9 mg/dl (8.4-10.2); Globulin 4.4 g/dL (1.3-3.2); Total Protein,Serum 8.3 g/dl (6.3-8.2)
[2020-01-01 08:30] LABS: Bacteria,Urine 2+ /lpf; WBC,Urine TNTC #/hpf (0-3)
[2020-01-01 08:36] LABS: Lymphocytes % 4 % (10-50); Monocytes % 8 % (2-9); Neutrophils % 86 % (42-76); RBC Morphology Normal; Total Cells Counted 100
--- NOTE | 2020-01-01 10:19 | Emergency Department Note ---
ED Disposition Clinical Impression: Severe sepsis with acute organ dysfunction, Obesity (BMI 30-39.9), History of atrial fibrillation, SVT (supraventricular tachycardia), Flu syndrome, BRITTNI (acute kidney injury) UTI (urinary tract infection) Qualifiers: Urinary tract infection type: site unspecified Hematuria presence: without hematuria Qualified Code(s): N39.0 - Urinary tract infection, site not specified Atrial fibrillation Qualifiers: Atrial fibrillation type: unspecified chronic Qualified Code(s): I48.20 - Chronic atrial fibrillation, unspecified Acute exacerbation of CHF (congestive heart failure) Qualifiers: Heart failure type: combined systolic and diastolic Qualified Code(s): I50.43 - Acute on chronic combined systolic (congestive) and diastolic (congestive) heart failure Disposition: Admitted As Inpatient Condition on Discharge: Serious - Critical Care Critical Care Time: Yes Attestation: On 01/01/20, the high probability of a clinically significant, sudden or life threatening deterioration of the following system(s) required my full and direct attention, intervention and personal management. The time I documented below is in addition to time spent performing reported procedures but includes the following listed in this critical care notation. Vital system(s) involved:: Metabolic Failure My critical care processes included: Assessment & monitoring of V/S, Initial and Re-exams, Data Review/Interpretation, Medication Orders and management Medical Decision Making - Medical Records Medical records reviewed: Yes: I reviewed the patient's medical records. - Yogesh Inquiry Pt receiving controlled substance: No Vital Signs: 01/01/20 07:40 01/01/20 09:45 Temperature 102 F H Temperature Source Rectal Pulse Rate [Right Brachial] 200 H 100 H Respiratory Rate 32 H 26 H Blood Pressure [Right Arm] 156/74 H 136/92 H Blood Pressure Mean [Right Arm] 101 106 02 Sat by Pulse Oximetry 95 Oxygen Delivery Method Room Air - Lab Data Lab results reviewed: Yes: I reviewed the patient's lab results. Lab Results 01/01/20 07:50: ABG pH 7.45, ABG pCO2 31.1 L, ABG pO2 84.1, ABG HCO3 21.2 L, ABG Total CO2 22.2 L, ABG O2 Saturation 97, ABG Base Excess -2.7 L 01/01/20 07:50: WBC 14.5 H, RBC 4.25 L, Hgb 13.5 L, Hct 40.5 L, MCV 95.1 H, MCH 31.7 H, MCHC 33.3, RDW 15.9, Plt Count 382, MPV 8.3, Neut % (Auto) 85.3 H, Lymph % (Auto) 9.6 L, [place] % (Auto) 3.8, Eos % (Auto) 1.1, Baso % (Auto) 0.3, Neut # (Auto) 12.4 H, Lymph # (Auto) 1.4, [place] # (Auto) 0.6, Eos # (Auto) 0.2, Baso # ( Auto) 0.0, Total Counted 100, Neutrophils % (Manual) 86 H, Band Neutrophils % 1.0, Lymphocytes % (Manual) 4 L, Monocytes % (Manual) 8, Basophils % (Manual) 1.0, Platelet Estimate Normal, RBC Morphology Normal 01/01/20 07:50: Sodium 138, Potassium 5.1, Chloride 101, Carbon Dioxide 24, Anion Gap 18.1 H, BUN 70 H, Creatinine 2.90 H, Estimated Creat Clear 33, Estimated GFR 21 L, Est GFR ( Amer) 26 L, Glucose 82, Calcium 9.9, Total Bilirubin 0.9, AST 51, ALT 42, Alkaline Phosphatase 163 H, Troponin I 1.62 H, Total Protein 8.3 H, Albumin 3.9, Globulin 4.4 H, Albumin/Globulin Ratio 0.9 L 01/01/20 07:50: Lactate 3.3 H 01/01/20 07:50: Chlamy pneumoniae PCR Not detected, Adenovirus (PCR) Not detected, B. pertussis DNA (PCR) Not detected, Coronavirus OC43 (PCR) Not det ected, Coronavirus HKU1 (PCR) Not detected, Coronavirus 229E (PCR) Not detected, Coronavirus NL63 (PCR) Not detected, Human Metapneumovir PCR Not detected, Influenza A (H1) PCR Not detected, Influ A (H1N1/09) PCR Not detected, Influenza A (H3) PCR Not detected, Influenza Type A (PCR) Detected A, Influenza Type B (PCR) Not detected, M. pneumoniae (PCR) Not detected, Parainfluenza 1 (PCR) Not detected, Parainfluenza 2 (PCR) Not detected, Parainfluenza 3 (PCR) Not detected, Parainfluenza 4 (PCR) Not detected, RSV (PCR) Not detected, Entero/Rhino (PCR) Not detected 01/01/20 07:50: NT-Pro-B Natriuret Pep 66667 H 01/01/20 08:00: Urine Color Yellow, Urine Appearance Turbid, Urine pH 6.0, Ur Specific [place] 1.020, Urine Protein 2+, Urine Glucose (UA) Negative, Urine Ketones Negative, Urine Blood 3+, Urine Nitrate Negative, Urine Bilirubin Negati ve, Urine Urobilinogen 0.2, Ur Leukocyte Esterase 3+ A, Urine RBC 3-5, Urine WBC Tntc, Ur Squamous Epith Cells None, Urine Bacteria 2+ Result diagrams: 01/01/20 07:50 01/01/20 07:50 Orders (Tests/Meds): ED MEDICATIONS Generic Name Dose Route Start Last Admin Trade Name Gutierrezq PRN Reason Stop Dose Admin Enoxaparin Sodium 40 mg 01/01/20 09:30 Lovenox 40mg/0.4ml Syringe SQ 01/31/20 09:29 DAILY CINDY Ertapenem 1 gm/ Sodium 50 mls @ 100 mls/hr 01/01/20 09:15 01/01/20 09:18 Chloride IV 01/15/20 09:14 100 mls/hr Q24H CINDY Administration Protocol Diltiazem HCl 100 mg/ Sodium 100 mls @ 10 mls/hr 01/01/20 09:32 01/01/20 09:44 Chloride IV 01/31/20 09:31 10 mls/hr .Q10H CINDY Administration Protocol 10 MG/HR Discontinued Medications Generic Name Dose Route Start Last Admin Trade Name Freq PRN Reason Stop Dose Admin Acetaminophen 650 mg 01/01/20 08:01 01/01/20 08:08 Acetaminophen 650mg Suppository RC 01/01/20 08:02 650 mg ONCE ONE Administration Adenosine 6 mg 01/01/20 08:01 01/01/20 07:50 Adenosine 6mg/2ml Vial IV 01/01/20 08:02 6 mg ONCE ONE Administration Diltiazem HCl 10 mg 01/01/20 08:01 01/01/20 07:52 Cardizem 25mg/5ml Vial IV 01/01/20 08:02 10 mg ONCE ONE Administration Diltiazem HCl 10 mg 01/01/20 09:04 01/01/20 09:44 Cardizem 100mg Adv IV 01/01/20 09:05 Not Given ONCE ONE Furosemide 40 mg 01/01/20 09:16 01/01/20 09:18 Lasix 40mg/4ml Vial IV 01/01/20 09:17 40 mg ONCE ONE Administration Diltiazem HCl 100 mg/ Sodium 100 mls @ 5 mls/hr 01/01/20 08:15 Chloride IV 01/31/20 08:14 .Q20H CINDY Protocol Diltiazem HCl 100 mg/ Sodium 100 mls @ 5 mls/hr 01/01/20 08:16 Chloride IV 01/31/20 08:15 .Q20H CINDY Protocol Diltiazem HCl 100 mg/ Sodium 100 mls @ 5 mls/hr 01/01/20 08:15 01/01/20 08:17 Chloride IV 01/31/20 08:14 Not Given .Q20H CINDY Protocol Sodium Chloride 1,000 mls @ 999 mls/hr 01/01/20 08:15 01/01/20 08:17 Sod Chlor 0.9% 1000ml Bag IV 01/01/20 09:15 999 mls/hr .Q1H1M CINDY Administration ORDERS Category Date Time Status Troponin I Q3H Lab 01/01/20 11:15 Ordered Troponin I Q3H Lab 01/01/20 14:15 Ordered Blood Culture Stat Micro 01/01/20 08:00 Received Urine Culture Stat Micro 01/01/20 08:00 Received Arterial Blood Gas Stat RT 01/01/20 08:17 Ordered - Radiology Data #1 Image(s): Chest Image Reviewed: Yes I reviewed the patient's radiology image Preliminary Findings: Abnormal (cm) - ECG Data Tracing #1 Arrhythmias present: PSVT Ischemic changes: non-specific ST-T wave changes Tracing #2 Arrhythmias present: afib Ischemic changes: non-specific ST-T wave changes Altered Mental Status HPI - General Chief Complaint: Shortness of Breath/Dyspnea Stated Complaint: shortness of breath Time Seen by Provider: 01/01/20 07:45 Mode of Arrival: EMS Source of Information: Patient, EMS, Medical Record Limitations: Physical Limitations Description of Symptoms (Recalled from ER Triage Doc. by RN): pt presents to ed with c/o shortness of breath. shelter states that patient "rolled out of bed this morning." pt denies pain or injury. only c/o shortness of breath. ems reports patient in svt rate of 200bpm en route. - History of Present Illness HPI narrative: pt sent from [facility] with altered mental status with fever and inc hr - pt with no chest pain - no abd pain MD complaint: altered mental status Onset (ago): hour(s) Timing confirmed by: caregiver Severity: severe Associated symptoms: denies other symptoms - Related Data Home Medications Medication Instructions Recorded Confirmed ascorbic acid (vitamin C) 500 mg 500 mg PO DAILY tab 10/30/17 01/01/20 tablet atorvastatin 40 mg tablet 40 mg PO HS 10/30/17 01/01/20 ferrous sulfate 325 mg (65 mg 325 mg PO Q48H tab 10/30/17 01/01/20 iron) tablet levothyroxine 50 mcg tablet 50 mcg PO DAILY tab 10/30/17 01/01/20 Duloxetine HCl [Cymbalta 30mg 60 mg PO DAILY 04/12/18 01/01/20 capsule] carBAMazepine [Tegretol 100mg 100 mg PO BID 08/23/18 01/01/20 tablet] Acetaminophen [Acetaminophen 325mg 500 mg PO Q6HP PRN 11/23/18 01/01/20 tab] Docusate Sodium [Colace 250mg 250 mg PO BID 11/23/18 01/01/20 capsule] Fluticasone Propionate [Flonase 1 spr NS DAILY 11/23/18 01/01/20 50mcg nasal spray 16gm] Isosorbide Mononitrate [Imdur 30mg 30 mg PO DAILY 11/23/18 01/01/20 ER tablet] Insulin Glargine,Hum.rec.anlog 64 unit SQ HS 03/12/19 01/01/20 [Lantus Insulin 100units/mL 10mL vial] Furosemide [Furosemide 40MG tAB] 40 mg PO BID 04/01/19 01/01/20 Rivaroxaban [Xarelto 15mg tablet] 15 mg PO QPMWM 04/01/19 01/01/20 Carboxymethylcellulose Sodium 1 each OP BIDP PRN 06/07/19 01/01/20 [Thera Tears] Cholecalciferol (Vitamin D3) 2,000 unit PO DAILY 06/08/19 01/01/20 [Vitamin D3] Insulin Aspart [Novolog] 20 unit SQ ACHS 06/08/19 01/01/20 Insulin NPH Hum/Reg Insulin Hm 31 unit SQ BID 06/08/19 01/01/20 [Novolin 70-30 Flexpen] Aspirin [Aspirin 81mg chewable 81 mg PO DAILY 07/12/19 01/01/20 tab] Spironolactone [Aldactone 25mg 25 mg PO DAILY 07/12/19 01/01/20 Tab] Trazodone HCl [Desyrel 50mg tablet] 100 mg PO HS 07/12/19 01/01/20 carvediloL [Coreg 25mg Tablet] 50 mg PO BID 07/12/19 01/01/20 losartan 100 mg tablet 100 mg PO DAILY 07/16/19 01/01/20 aripiprazole 5 mg tablet 10 mg PO DAILY 11/12/19 01/01/20 Allergies Allergy/AdvReac Type Severity Reaction Status Date / Time No Known Allergies Allergy Verified 01/01/20 08:00 [facility] History - Hepatitis A Screen Drug use history?: No High risk sexual behaviors?: No History of sexually transmitted infection?: No Currently employed?: No Childcare worker?: No Do you have indoor plumbing?: Yes Do you have electricity?: Yes Attestation statement:: This patient has been screened for Hepatitis A risk factors. I have reviewed the patient's past medical history: Yes Medical History: Reports:: Arrhythmia, Atrial Fibrillation, Cancer, Cardiomyopathy, Congestive Heart Failure, Chronic Obstructive Pulmonary Disease (COPD), Coronary Artery Disease, Diabetes Mellitus Type 2, Hyperlipidemia, Hypertension, Myocardial Infarction, Peripheral Vascular Disease, Renal Disease Denies:: Diabetes Mellitus Type 1, Internal Pacemaker, Lung Disease, MRSA, Seizures Other Medical History: Reports: Anemia, Hypothyroidism Laterality Cases: Left: Total Hip Replacement, Other, Bilateral: Tonsillectomy Other Surgeries: Yes: Cardiac Catheterization, Colonoscopy, Coronary Stent, Other. No: Pacemaker Amputation: No Fractures: Yes - Social History Smoking Status: Former smoker Tobacco Type: cigarettes # Packs/Day (cigarettes): 2 #Yrs smoked (if former smoker): 25 Alcohol Intake: never Alcohol Intake Frequency:: other Substance Use Type: denies use Occupational Status: retired Housing: shelter Household Members: other Family Hx:: Diabetes ROS Obtained: Yes unobtainable due to mental status Physical Exam - General General appearance: anxious - Head Head exam: normocephalic - Eye Eye exam: Present: PERRL, EOMI. Absent: scleral icterus - ENT ENT exam: Present: mucous membranes dry - Neck Neck exam: Present: trachea midline - Respiratory Respiratory exam: Present: other (positive rales ). Absent: respiratory distress - Cardiovascular Cardiovascular exam: Present: tachycardia, rubs - Abdominal Exam Abdominal exam: Present: soft - Extremities Exam Extremities exam: Present: other (pelvis stable ). Absent: pedal edema - Neurological Exam Neurological exam: Present: alert, CN II-XII intact. Absent: motor sensory deficit - Psychiatric Psychiatric exam: Present: anxious - Skin Skin exam: Absent: rash
--- NOTE | 2020-01-01 10:31 | Pharmacy Consult Notes ---
[facility] Pharmacy VTE Monitoring - Patient Demographics Admission date: 01/01/20 Report Date: 01/01/20 Time: 10:31 Allergies/Adverse Reactions: Patient Allergies No Known Allergies Allergy (Verified 01/01/20 08:00) Height: 1.73 m Weight: 104.326 kg Patient Problems: Current Active Problems (Last Updated 11/12/19 @ 13:29 by Cara Mendoza RN) Severe sepsis with acute organ dysfunction (Acute) SVT (supraventricular tachycardia) (Acute) Flu syndrome (Acute) BRITTNI (acute kidney injury) (Acute) Acute exacerbation of CHF (congestive heart failure) (Acute) UTI (urinary tract infection) (Acute) Obesity (BMI 30-39.9) (Chronic) A-fib (Chronic) History of atrial fibrillation (Chronic) - VTE Risk Labs: VTE Related Lab Results Hgb 13.5 g/dL (14.1-18.0) L 01/01/20 07:50 Hct 40.5 % (42.0-52.0) L 01/01/20 07:50 Plt Count 382 K/mm3 (142-424) 01/01/20 07:50 BUN 70 mg/dl (9-20) H 01/01/20 07:50 Creatinine 2.90 mg/dl (0.66-1.25) H 01/01/20 07:50 Estimated Creat Clear 33 mL/min (50-200) 01/01/20 07:50 - Prophylaxis Pharmacologic Type: Enoxaparin (LOVENOX ORDER PLACED PER )
--- NOTE | 2020-01-01 10:35 | History & Physical Report ---
*Admission Date: 01/01/20 *Chief complaint: altered mental status *History of present illness: this elderly wm sent from [facility] for eval of possible fall with increased hr with hx of a fib and has sob but no chest pain- he was seen in the ed with fever and uti with sepsis - he has increased hr with svt - possible a flutter requiring cardizem drip - pt had flu also - pt was admitted with ivf and abx - [facility] History I have reviewed the patient's past medical history: Yes Medical History: Reports:: Arrhythmia, Atrial Fibrillation, Cancer, Cardiomyopathy, Congestive Heart Failure, Chronic Obstructive Pulmonary Disease (COPD), Coronary Artery Disease, Diabetes Mellitus Type 2, Hyperlipidemia, Hypertension, Myocardial Infarction, Peripheral Vascular Disease, Renal Disease Denies:: Diabetes Mellitus Type 1, Internal Pacemaker, Lung Disease, MRSA, Seizures *Have you ever received a pneumonia vaccine?: Yes *Have you received a flu vaccine this season?: Yes Other Medical History: Reports: Anemia, Hypothyroidism Laterality Cases: Left: Total Hip Replacement, Other, Bilateral: Tonsillectomy Other Surgeries: Yes: Cardiac Catheterization, Colonoscopy, Coronary Stent, Other. No: Pacemaker Amputation: No Fractures: Yes - *Social History Smoking Status: Former smoker Tobacco Type: cigarettes # Packs/Day (cigarettes): 2 #Yrs smoked (if former smoker): 25 Alcohol Intake: never Alcohol Intake Frequency:: other Substance Use Type: denies use *Occupational Status:: retired Housing: detention Household Members: other *Travel in the last 8 weeks: None Family Hx:: Diabetes Review of Systems - Review of Systems Review of systems:: pertinent systems reviewed and negative unless documented below - Constitutional Reports fever(s), Denies headache(s) - Eyes Denies change in vision - ENT Denies sore throat - *Cardiovascular Reports shortness of breath, Reports fast heart rate, Denies chest pain at rest - *Respiratory Reports shortness of breath, Denies cough, Denies coughing up blood - *Gastrointestinal Denies abdominal pain, Denies vomiting - *Genitourinary Denies blood in urine - *Musculoskeletal Denies joint pain - Integumentary/Breasts Denies rash - *Neurologic Reports seizure-like activity, Denies localized weakness, Denies seizure-like activity - Psychiatric Reports other (unable to eval ) Meds Home Medications Medication Instructions Recorded Confirmed Type ascorbic acid (vitamin C) 500 mg 500 mg PO DAILY tab 10/30/17 01/01/20 History tablet atorvastatin 40 mg tablet 40 mg PO HS 10/30/17 01/01/20 History ferrous sulfate 325 mg (65 mg 325 mg PO Q48H tab 10/30/17 01/01/20 History iron) tablet levothyroxine 50 mcg tablet 50 mcg PO DAILY tab 10/30/17 01/01/20 History Duloxetine HCl [Cymbalta 30mg 60 mg PO DAILY 04/12/18 01/01/20 History capsule] carBAMazepine [Tegretol 100mg 100 mg PO BID 08/23/18 01/01/20 History tablet] Docusate Sodium [Colace 250mg 250 mg PO BID 11/23/18 01/01/20 History capsule] Fluticasone Propionate [Flonase 1 spr NS DAILY 11/23/18 01/01/20 History 50mcg nasal spray 16gm] Isosorbide Mononitrate [Imdur 30mg 30 mg PO DAILY 11/23/18 01/01/20 History ER tablet] Insulin Glargine,Hum.rec.anlog 64 unit SQ HS 03/12/19 01/01/20 History [Lantus Insulin 100units/mL 10mL vial] Furosemide [Furosemide 40MG tAB] 40 mg PO BID 04/01/19 01/01/20 History Rivaroxaban [Xarelto 15mg tablet] 15 mg PO QPMWM 04/01/19 01/01/20 History Carboxymethylcellulose Sodium 1 each OP BIDP PRN 06/07/19 01/01/20 History [Thera Tears] Cholecalciferol (Vitamin D3) 2,000 unit PO DAILY 06/08/19 01/01/20 History [Vitamin D3] Insulin Aspart [Novolog] 20 unit SQ ACHS 06/08/19 01/01/20 History Insulin NPH Hum/Reg Insulin Hm 31 unit SQ BID 06/08/19 01/01/20 History [Novolin 70-30 Flexpen] Aspirin [Aspirin 81mg chewable 81 mg PO DAILY 07/12/19 01/01/20 History tab] Spironolactone [Aldactone 25mg 25 mg PO DAILY 07/12/19 01/01/20 History Tab] Trazodone HCl [Desyrel 50mg tablet] 100 mg PO HS 07/12/19 01/01/20 History carvediloL [Coreg 25mg Tablet] 50 mg PO BID 07/12/19 01/01/20 History losartan 100 mg tablet 100 mg PO DAILY 07/16/19 01/01/20 History aripiprazole 5 mg tablet 10 mg PO DAILY 11/12/19 01/01/20 History Acetaminophen [Pain & Fever] 500 mg PO Q6HP PRN 01/01/20 01/01/20 History Allergies Allergy/AdvReac Type Severity Reaction Status Date / Time No Known Allergies Allergy Verified 01/01/20 08:00 Exam Vital signs and Labs for Last 24 Hours: Temp Pulse Resp BP Pulse Ox 102 F H 100 H 26 H 136/92 H 95 01/01/20 07:40 01/01/20 09:45 01/01/20 09:45 01/01/20 09:45 01/01/20 07:40 Laboratory Results - last 24 hr 01/01/20 07:50: ABG pH 7.45, ABG pCO2 31.1 L, ABG pO2 84.1, ABG HCO3 21.2 L, ABG Total CO2 22.2 L, ABG O2 Saturation 97, ABG Base Excess -2.7 L 01/01/20 07:50: WBC 14.5 H, RBC 4.25 L, Hgb 13.5 L, Hct 40.5 L, MCV 95.1 H, MCH 31.7 H, MCHC 33.3, RDW 15.9, Plt Count 382, MPV 8.3, Neut % (Auto) 85.3 H, Lymph % (Auto) 9.6 L, [place] % (Auto) 3.8, Eos % (Auto) 1.1, Baso % (Auto) 0.3, Neut # (Auto) 12.4 H, Lymph # (Auto) 1.4, [place] # (Auto) 0.6, Eos # (Auto) 0.2, Baso # (Auto) 0.0, Total Counted 100, Neutrophils % (Manual) 86 H, Band Neutrophils % 1.0, Lymphocytes % (Manual) 4 L, Monocytes % (Manual) 8, Basophils % (Manual) 1.0, Platelet Estimate Normal, RBC Morphology Normal 01/01/20 07:50: Sodium 138, Potassium 5.1, Chloride 101, Carbon Dioxide 24, Anion Gap 18.1 H, BUN 70 H, Creatinine 2.90 H, Estimated Creat Clear 33, Estimated GFR 21 L, Est GFR ( Amer) 26 L, Glucose 82, Calcium 9.9, Total Bilirubin 0.9, AST 51, ALT 42, Alkaline Phosphatase 163 H, Troponin I 1.62 H, Total Protein 8.3 H, Albumin 3.9, Globulin 4.4 H, Albumin/Globulin Ratio 0.9 L 01/01/20 07:50: Lactate 3.3 H 01/01/20 07:50: Chlamy pneumoniae PCR Not detected, Adenovirus (PCR) Not detected, B. pertussis DNA (PCR) Not detected, Coronavirus OC43 (PCR) Not detected, Coronavirus HKU1 (PCR) Not detected, Coronavirus 229E (PCR) Not detected, Coronavirus NL63 (PCR) Not detected, Human Metapneumovir PCR Not detected, Influenza A (H1) PCR Not detected, Influ A (H1N1/09) PCR Not detected, Influenza A (H3) PCR Not detected, Influenza Type A (PCR) Detected A, Influenza Type B (PCR) Not detected, M. pneumoniae (PCR) Not detected, Parainfluenza 1 (PCR) Not detected, Parainfluenza 2 (PCR) Not detected, Parainfluenza 3 (PCR) Not detected, Parainfluenza 4 (PCR) Not detected, RSV (PCR) Not detected, Entero/Rhino (PCR) Not detected 01/01/20 07:50: NT-Pro-B Natriuret Pep 51575 H 01/01/20 08:00: Urine Color Yellow, Urine Appearance Turbid, Urine pH 6.0, Ur Specific [place] 1.020, Urine Protein 2+, Urine Glucose (UA) Negative, Urine Ketones Negative, Urine Blood 3+, Urine Nitrate Negative, Urine Bilirubin Negative, Urine Urobilinogen 0.2, Ur Leukocyte Esterase 3+ A, Urine RBC 3-5, Urine WBC Tntc, Ur Squamous Epith Cells None, Urine Bacteria 2+ I & O for Last 24 hours: Intake & Output 12/29/19 12/30/19 12/31/19 01/01/20 11:59 11:59 11:59 11:59 Weight 230 lb - Constitutional no acute distress, obese, chronically ill appearing - *Routine HEENT Exam Head: Present: normocephalic Eye: Present: EOMI, PERRL. Absent: conjunctival icterus ENT: Present: mucous membranes dry - *Routine Neck Exam Absent: JVD - *Routine Respiratory Exam Present: rales, wheezes, diminished air movement - *Routine Cardiovascular Exam Present: tachycardia, irregularly irregular - *Routine Abdominal Exam Present: soft - *Routine Extremities Exam Absent: calf tenderness - *Routine Skin Exam Present: dry - *Routine Neurological Exam Present: CN II-XII intact. Absent: motor deficit - Routine Psychiatric Exam Present: unable to assess Assessment and Plan (1) Severe sepsis with acute organ dysfunction Current visit: Yes Status: Acute Category: Medical Code(s): A41.9 - Sepsis, unspecified organism; R65.20 - Severe sepsis without septic shock (2) SVT (supraventricular tachycardia) Current visit: Yes Status: Acute Category: Medical Code(s): I47.1 - Supraventricular tachycardia (3) Flu syndrome Current visit: Yes Status: Acute Category: Medical Code(s): J11.1 - Influenza due to unidentified influenza virus with other respiratory manifestations (4) BRITTNI (acute kidney injury) Current visit: Yes Status: Acute Category: Medical Code(s): N17.9 - Acute kidney failure, unspecified (5) Acute exacerbation of CHF (congestive heart failure) Current visit: Yes Status: Acute Qualifiers: Heart failure type: combined systolic and diastolic Qualified Code(s): I50.43 - Acute on chronic combined systolic (congestive) and diastolic (congestive) heart failure Category: Medical Code(s): I50.9 - Heart failure, unspecified (6) Elevated troponin Current visit: No Status: Chronic Category: Medical Code(s): R74.8 - Abnormal levels of other serum enzymes (7) Diabetes mellitus type 2 in obese Current visit: No Status: Chronic Category: Medical Code(s): E11.69 - Type 2 diabetes mellitus with other specified complication; E66.9 - Obesity, unspecified (8) Obesity (BMI 30-39.9) Current visit: Yes Status: Chronic Category: Medical Code(s): E66.9 - Obesity, unspecified
[2020-01-02 05:40] LABS: Basophils # 0.1 K/mm3 (0-0.2); Basophils % 0.4 % (0.1-2.0); Eosinophils # 0.3 K/mm3 (0.0-0.4); Eosinophils % 1.7 % (0.1-12.0); Hematocrit 37.6 % (42.0-52.0); Hemoglobin 12.3 g/dL (14.1-18.0); Lymphocytes % 6.7 % (10-50); Mean Corpuscular HGB Conc 32.6 g/dL (31.8-35.4); Mean Platelet Volume 8.5 fl (7.4-10.4); Neutrophils # 12.4 K/mm3 (1.8-7.8); Neutrophils % 84.2 % (37.0-80.0); Platelet Count 266 K/mm3 (142-424); Red Blood Count 3.92 M/mm3 (4.60-6.20); Red Cell Distribution Width 15.9 % (11.5-17.5); White Blood Count 14.7 K/mm3 (4.8-10.8)
[2020-01-02 05:58] LABS: Anion Gap 12.9 mEq/L (5-15); Calcium 9.3 mg/dl (8.4-10.2)
--- NOTE | 2020-01-02 09:29 | Progress Note ---
Internal Medicine - PN: Subj *Date: 01/02/20 *Time: 09:26 Interval history: awake and discussed level of care - he declined intubation and uncertain as to whether he want abx -he is on at this time - have asked staff to help clarify at this time and will continue at this time - will consider hospice Exam Vital signs and Labs for Last 24 Hours: Temp Pulse Resp BP Pulse Ox 98.4 F 101 H 16 120/60 100 01/02/20 07:46 01/02/20 04:00 01/02/20 04:00 01/02/20 04:00 01/02/20 05:01 Laboratory Results - last 24 hr 01/01/20 08:00: Urine Color Yellow, Urine Appearance Turbid, Urine pH 6.0, Ur Specific [place] 1.020, Urine Protein 2+, Urine Glucose (UA) Negative, Urine Ketones Negative, Urine Blood 3+, Urine Nitrate Negative, Urine Bilirubin Negative, Urine Urobilinogen 0.2, Ur Leukocyte Esterase 3+ A, Urine RBC 3-5, Urine WBC Tntc, Ur Squamous Epith Cells None, Urine Bacteria 2+ 01/01/20 11:30: Troponin I 1.36 H 01/01/20 11:44: POC Glucose 126 H 01/01/20 12:29: Lactate 1.4 01/01/20 13:56: Troponin I 1.25 H 01/01/20 16:00: POC Glucose 156 H 01/01/20 19:58: POC Glucose 180 H 01/02/20 05:30: WBC 14.7 H, RBC 3.92 L, Hgb 12.3 L, Hct 37.6 L, MCV 96.0 H, MCH 31.3 H, MCHC 32.6, RDW 15.9, Plt Count 266 D, MPV 8.5, Neut % (Auto) 84.2 H, Lymph % (Auto) 6.7 L, [place] % (Auto) 7.0, Eos % (Auto) 1.7, Baso % (Auto) 0.4, Neut # (Auto) 12.4 H, Lymph # (Auto) 1.0, [place] # (Auto) 1.0, Eos # (Auto) 0.3, Baso # (Auto) 0.1 01/02/20 05:30: Sodium 134 L, Potassium 4.9, Chloride 103, Carbon Dioxide 23, Anion Gap 12.9, BUN 79 H, Creatinine 2.70 H, Estimated Creat Clear 33, Estimated GFR 23 L, Est GFR ( Amer) 28 L, Glucose 173 H D, Calcium 9.3, Magnesium 2.3 01/02/20 05:35: POC Glucose 179 H I & O for Last 24 hours: Intake & Output 12/30/19 12/31/19 01/01/20 01/02/20 11:59 11:59 11:59 11:59 Intake Total 1059 / 1059 Output Total 1000 / 1000 Balance Weight 214 lb 2 oz 213 lb 1 oz Microbiology Reports for the Last 24 Hours: Microbiology 01/01/20 08:00 Blood Blood Culture - Preliminary 01/01/20 08:00 Blood Blood Culture - Preliminary 01/01/20 08:00 Urine,Clean Catch Urine Culture - Preliminary Gram Negative Rods - Constitutional no acute distress, obese - *Routine HEENT Exam Head: Present: normocephalic Eye: Present: EOMI, PERRL ENT: Present: mucous membranes dry - *Routine Neck Exam Absent: JVD - *Routine Respiratory Exam Present: decreased breath sounds - *Routine Cardiovascular Exam Present: irregular rhythm - *Routine Abdominal Exam Present: soft - *Routine Extremities Exam Present: edema. Absent: calf tenderness - *Routine Skin Exam Present: intact - *Routine Neurological Exam Present: alert, CN II-XII intact - Routine Psychiatric Exam Present: depressed Assessment and Plan (1) Severe sepsis with acute organ dysfunction Current visit: Yes Status: Acute Category: Medical Code(s): A41.9 - Sepsis, unspecified organism; R65.20 - Severe sepsis without septic shock (2) SVT (supraventricular tachycardia) Current visit: Yes Status: Acute Category: Medical Code(s): I47.1 - Supraventricular tachycardia (3) Flu syndrome Current visit: Yes Status: Acute Category: Medical Code(s): J11.1 - Influenza due to unidentified influenza virus with other respiratory manifestations (4) BRITTNI (acute kidney injury) Current visit: Yes Status: Acute Category: Medical Code(s): N17.9 - Acute kidney failure, unspecified (5) Acute exacerbation of CHF (congestive heart failure) Current visit: Yes Status: Acute Qualifiers: Heart failure type: combined systolic and diastolic Qualified Code(s): I50.43 - Acute on chronic combined systolic (congestive) and diastolic (congestive) heart failure Category: Medical Code(s): I50.9 - Heart failure, unspecified (6) Elevated troponin Current visit: No Status: Chronic Category: Medical Code(s): R74.8 - Abnormal levels of other serum enzymes (7) Diabetes mellitus type 2 in obese Current visit: No Status: Chronic Category: Medical Code(s): E11.69 - Type 2 diabetes mellitus with other specified complication; E66.9 - Obesity, unspecified (8) Obesity (BMI 30-39.9) Current visit: Yes Status: Chronic Category: Medical Code(s): E66.9 - Obesity, unspecified (9) UTI due to Klebsiella species Current visit: Yes Status: Acute Category: Medical Code(s): N39.0 - Urinary tract infection, site not specified; B96.89 - Other specified bacterial agents as the cause of diseases classified elsewhere
[2020-01-03 09:11] LABS: Basophils % 0.1 % (0.1-2.0); Eosinophils # 0.1 K/mm3 (0.0-0.4); Eosinophils % 0.5 % (0.1-12.0); Hematocrit 36.3 % (42.0-52.0); Hemoglobin 11.4 g/dL (14.1-18.0); Lymphocytes # 0.8 K/mm3 (0.7-4.5); Lymphocytes % 7.2 % (10-50); Mean Corpuscular HGB Conc 31.4 g/dL (31.8-35.4); Mean Corpuscular Volume 98.2 fl (80-94); Monocytes # 0.7 K/mm3 (0.1-1.0); Monocytes % 6.3 % (1.7-9.3); Neutrophils # 9.3 K/mm3 (1.8-7.8); Neutrophils % 85.9 % (37.0-80.0); Platelet Count 280 K/mm3 (142-424); Red Blood Count 3.69 M/mm3 (4.60-6.20); White Blood Count 10.8 K/mm3 (4.8-10.8)
--- NOTE | 2020-01-03 09:34 | Progress Note ---
Internal Medicine - PN: Subj *Date: 01/03/20 *Time: 10:49 Interval history: 74 YOM sitting up in bed, SOA w/ talking. He denies pain. Klebsiella pneumoniae in urine, is receiving Invanz Exam Vital signs and Labs for Last 24 Hours: Temp Pulse Resp BP Pulse Ox 97.6 F 100 H 24 130/74 100 01/03/20 07:48 01/03/20 07:48 01/03/20 07:48 01/03/20 07:48 01/03/20 07:48 Laboratory Results - last 24 hr 01/02/20 11:04: POC Glucose 184 H 01/02/20 21:14: POC Glucose 155 H 01/03/20 05:39: POC Glucose 162 H 01/03/20 08:50: WBC 10.8 D, RBC 3.69 L, Hgb 11.4 L, Hct 36.3 L, MCV 98.2 H, MCH 30.8, MCHC 31.4 L, RDW 16.0, Plt Count 280, Neut % (Auto) 85.9 H, Lymph % (Auto) 7.2 L, [place] % (Auto) 6.3, Eos % (Auto) 0.5, Baso % (Auto) 0.1, Neut # (Auto) 9.3 H, Lymph # (Auto) 0.8, [place] # (Auto) 0.7, Eos # (Auto) 0.1, Baso # (Auto) 0.0 I & O for Last 24 hours: Intake & Output 12/31/19 01/01/20 01/02/20 01/03/20 23:59 23:59 23:59 23:59 Intake Total 579 / 579 540 / 540 360 / 360 Output Total 400 / 400 1500 / 1500 350 / 350 Balance 179 / 179 -960 / -960 10 Weight 214 lb 2 oz 213 lb 1 oz 212 lb 1 oz Microbiology Reports for the Last 24 Hours: Microbiology 01/01/20 08:00 Urine,Clean Catch Urine Culture - Final Klebsiella pneumoniae 01/01/20 08:00 Blood Blood Culture - Preliminary 01/01/20 08:00 Blood Blood Culture - Preliminary - Constitutional no acute distress - *Routine HEENT Exam Head: Present: normocephalic, atraumatic. Absent: tenderness of temporal artery Eye: Present: EOMI, normal accommodation. Absent: periorbital tenderness ENT: Present: mucous membranes dry. Absent: sinus tenderness - *Routine Neck Exam Present: trachea midline. Absent: JVD, tracheal deviation - *Routine Respiratory Exam Present: decreased breath sounds. Absent: accessory muscle use - *Routine Cardiovascular Exam Present: irregular rhythm - *Routine Abdominal Exam Present: soft, normoactive bowel sounds. Absent: tenderness, firm - *Routine Extremities Exam Present: full ROM, pulses intact. Absent: calf tenderness - Routine Back/Spine/Pelvis Exam Back/Spine: Present: full ROM. Absent: CVA tenderness - *Routine Skin Exam Present: intact, warm. Absent: cyanosis - *Routine Neurological Exam Present: alert, CN II-XII intact Assessment and Plan (1) Severe sepsis with acute organ dysfunction Current visit: Yes Status: Acute Category: Medical Code(s): A41.9 - Sepsis, unspecified organism; R65.20 - Severe sepsis without septic shock (2) SVT (supraventricular tachycardia) Current visit: Yes Status: Acute Category: Medical Code(s): I47.1 - Supraventricular tachycardia (3) Flu syndrome Current visit: Yes Status: Acute Category: Medical Code(s): J11.1 - Influenza due to unidentified influenza virus with other respiratory manifestations (4) BRITTNI (acute kidney injury) Current visit: Yes Status: Acute Category: Medical Code(s): N17.9 - Acute kidney failure, unspecified (5) Acute exacerbation of CHF (congestive heart failure) Current visit: Yes Status: Acute Qualifiers: Heart failure type: combined systolic and diastolic Qualified Code(s): I50.43 - Acute on chronic combined systolic (congestive) and diastolic (congestive) heart failure Category: Medical Code(s): I50.9 - Heart failure, unspecified (6) Elevated troponin Current visit: No Status: Chronic Category: Medical Code(s): R74.8 - Abnormal levels of other serum enzymes (7) Diabetes mellitus type 2 in obese Current visit: No Status: Chronic Category: Medical Code(s): E11.69 - Type 2 diabetes mellitus with other specified complication; E66.9 - Obesity, unspecified (8) Obesity (BMI 30-39.9) Current visit: Yes Status: Chronic Category: Medical Code(s): E66.9 - Obesity, unspecified (9) UTI due to Klebsiella species Current visit: Yes Status: Acute Category: Medical Code(s): N39.0 - Urinary tract infection, site not specified; B96.89 - Other specified bacterial agents as the cause of diseases classified elsewhere - Assessment and plan all Dx Assessment and Plan for all problems:: Rounded w/ Dr. Vazquez, all orders per Dr. Vazquez 1. Urine with Klebsiella pneumonia, receiving Invanz
[2020-01-03 10:04] LABS: Lymphocytes % 8 % (10-50); Monocytes % 8 % (2-9); Neutrophils % 84 % (42-76); Nucleated Red Blood Cells 1; RBC Morphology Normal; Total Cells Counted 100
[2020-01-04 06:22] LABS: Anion Gap 14.8 mEq/L (5-15)
[2020-01-04 08:50] LABS: Basophils % 0.2 % (0.1-2.0); Eosinophils # 0.1 K/mm3 (0.0-0.4); Eosinophils % 0.9 % (0.1-12.0); Hematocrit 38.1 % (42.0-52.0); Hemoglobin 11.9 g/dL (14.1-18.0); Lymphocytes % 10.4 % (10-50); Mean Corpuscular HGB Conc 31.2 g/dL (31.8-35.4); Mean Corpuscular Volume 98.8 fl (80-94); Monocytes # 0.8 K/mm3 (0.1-1.0); Monocytes % 7.8 % (1.7-9.3); Neutrophils # 8.1 K/mm3 (1.8-7.8); Neutrophils % 80.6 % (37.0-80.0); Platelet Count 316 K/mm3 (142-424); Red Blood Count 3.86 M/mm3 (4.60-6.20)
--- NOTE | 2020-01-04 09:04 | Progress Note ---
Internal Medicine - PN: Subj *Date: 01/04/20 *Time: 09:56 Interval history: #4-year-old male patient sitting up in bed, this morning during a coughing episode patient had an elevated heart rate to 180s. After, coughing episode resolved patient's heart rate 100 with sinus rhythm. Patient has Klebsiella pneumoniae in blood and urine cultures on Invanz, will order PICC line placement today and possible discharge back to intermediate tomorrow Exam Vital signs and Labs for Last 24 Hours: Temp Pulse Resp BP Pulse Ox 97.8 F 103 H 18 141/84 H 94 L 01/04/20 08:00 01/04/20 08:00 01/04/20 08:00 01/04/20 08:00 01/04/20 08:00 Laboratory Results - last 24 hr 01/01/20 08:00: Urine Color Yellow, Urine Appearance Turbid, Urine pH 6.0, Ur Specific [place] 1.020, Urine Protein 2+, Urine Glucose (UA) Negative, Urine Ketones Negative, Urine Blood 3+, Urine Nitrate Negative, Urine Bilirubin Negative, Urine Urobilinogen 0.2, Ur Leukocyte Esterase 3+ A, Urine RBC 3-5, Urine WBC Tntc, Ur Squamous Epith Cells None, Urine Bacteria 2+ 01/03/20 08:50: WBC 10.8 D, RBC 3.69 L, Hgb 11.4 L, Hct 36.3 L, MCV 98.2 H, MCH 30.8, MCHC 31.4 L, RDW 16.0, Plt Count 280, Neut % (Auto) 85.9 H, Lymph % (Auto) 7.2 L, Rogers % (Auto) 6.3, Eos % (Auto) 0.5, Baso % (Auto) 0.1, Neut # (Auto) 9.3 H, Lymph # (Auto) 0.8, Rogers # (Auto) 0.7, Eos # (Auto) 0.1, Baso # (Auto) 0.0, Total Counted 100, Neutrophils % (Manual) 84 H, Lymphocytes % (Manual) 8 L, Monocytes % (Manual) 8, Nucleated RBCs 1, Platelet Estimate Normal, RBC Morpholo gy Normal 01/03/20 11:33: POC Glucose 206 H 01/03/20 16:31: POC Glucose 210 H 01/03/20 20:14: POC Glucose 227 H 01/04/20 05:32: POC Glucose 187 H 01/04/20 05:35: Sodium 140, Potassium 4.8, Chloride 103, Carbon Dioxide 27, Anion Gap 14.8, BUN 76 H, Creatinine 2.30 H, Estimated Creat Clear 38, Estimated GFR 28 L, Est GFR ( Amer) 34 L D, Glucose 188 H, Calcium 9.0 01/04/20 05:35: WBC 10.0, RBC 3.86 L, Hgb 11.9 L, Hct 38.1 L, MCV 98.8 H, MCH 30.8, MCHC 31.2 L, RDW 16.0, Plt Count 316, Neut % (Auto) 80.6 H, Lymph % (Auto) 10.4, Rogers % (Auto) 7.8, Eos % (Auto) 0.9, Baso % (Auto) 0.2, Neut # (Auto) 8.1 H, Lymph # (Auto) 1.0, Rogers # (Auto) 0.8, Eos # (Auto) 0.1, Baso # (Auto) 0.0 I & O for Last 24 hours: Intake & Output 01/01/20 01/02/20 01/03/20 01/04/20 23:59 23:59 23:59 23:59 Intake Total 579 / 579 540 / 540 770 / 1010 480 / 480 Output Total 400 / 400 1500 / 1500 1300 / 1300 450 / 450 Balance 179 / 179 -960 / -960 -530 / -290 30 / 30 Weight 214 lb 2 oz 213 lb 1 oz 211 lb 10.3 oz 209 lb 5 oz Microbiology Reports for the Last 24 Hours: Microbiology 01/01/20 08:00 Blood Blood Culture - Preliminary Klebsiella pneumoniae 01/01/20 08:00 Blood Blood Culture - Preliminary Klebsiella pneumoniae 01/01/20 08:00 Urine,Clean Catch Urine Culture - Final Klebsiella pneumoniae - Constitutional no acute distress - *Routine HEENT Exam Head: Present: normocephalic. Absent: tenderness of temporal artery Eye: Present: EOMI, PERRL, normal accommodation. Absent: periorbital tenderness ENT: Present: mucous membranes dry. Absent: sinus tenderness - *Routine Neck Exam Present: supple, full ROM, trachea midline. Absent: JVD, tracheal deviation - *Routine Respiratory Exam Present: decreased breath sounds. Absent: accessory muscle use - *Routine Cardiovascular Exam Present: irregular rhythm - *Routine Abdominal Exam Present: soft, normoactive bowel sounds. Absent: tenderness, firm - *Routine Extremities Exam Present: pulses intact. Absent: cyanosis, calf tenderness - Routine Back/Spine/Pelvis Exam Back/Spine: Present: full ROM. Absent: CVA tenderness - *Routine Skin Exam Present: intact, warm. Absent: jaundice - *Routine Neurological Exam Present: alert, CN II-XII intact - Routine Psychiatric Exam Present: normal affect Assessment and Plan (1) Severe sepsis with acute organ dysfunction Current visit: Yes Status: Acute Category: Medical Code(s): A41.9 - Sepsis, unspecified organism; R65.20 - Severe sepsis without septic shock (2) SVT (supraventricular tachycardia) Current visit: Yes Status: Acute Category: Medical Code(s): I47.1 - Supraventricular tachycardia (3) Flu syndrome Current visit: Yes Status: Acute Category: Medical Code(s): J11.1 - Influenza due to unidentified influenza virus with other respiratory manifestations (4) BRITTNI (acute kidney injury) Current visit: Yes Status: Acute Category: Medical Code(s): N17.9 - Acute kidney failure, unspecified (5) Acute exacerbation of CHF (congestive heart failure) Current visit: Yes Status: Acute Qualifiers: Heart failure type: combined systolic and diastolic Qualified Code(s): I50.43 - Acute on chronic combined systolic (congestive) and diastolic (congestive) heart failure Category: Medical Code(s): I50.9 - Heart failure, unspecified (6) Elevated troponin Current visit: No Status: Chronic Category: Medical Code(s): R74.8 - Abnormal levels of other serum enzymes (7) Diabetes mellitus type 2 in obese Current visit: No Status: Chronic Category: Medical Code(s): E11.69 - Type 2 diabetes mellitus with other specified complication; E66.9 - Obesity, unspecified (8) Obesity (BMI 30-39.9) Current visit: Yes Status: Chronic Category: Medical Code(s): E66.9 - Obesity, unspecified (9) UTI due to Klebsiella species Current visit: Yes Status: Acute Category: Medical Code(s): N39.0 - Urinary tract infection, site not specified; B96.89 - Other specified bacterial agents as the cause of diseases classified elsewhere - Assessment and plan all Dx Assessment and Plan for all problems:: Rounded with Dr. Vazquez, all orders per Dr. Vazquez 1. PICC line placement today 2. Probable discharge to intermediate tomorrow The patient's infection will respond to the chosen ABx?: Yes Is the patient receiving the right drug, dose, and route?: Yes Could a more targeted ABx be ordered?: No
[2020-01-04 10:44] LABS: Lymphocytes % 12 % (10-50); Monocytes % 10 % (2-9); Neutrophils % 78 % (42-76); RBC Morphology Normal; Total Cells Counted 100
[2020-01-05 06:48] LABS: Basophils % 0.2 % (0.1-2.0); Eosinophils # 0.1 K/mm3 (0.0-0.4); Eosinophils % 1.1 % (0.1-12.0); Hematocrit 37.2 % (42.0-52.0); Hemoglobin 11.7 g/dL (14.1-18.0); Lymphocytes # 1.2 K/mm3 (0.7-4.5); Lymphocytes % 10.5 % (10-50); Mean Corpuscular HGB Conc 31.4 g/dL (31.8-35.4); Monocytes # 0.9 K/mm3 (0.1-1.0); Monocytes % 8.2 % (1.7-9.3); Neutrophils # 9.1 K/mm3 (1.8-7.8); Neutrophils % 80.1 % (37.0-80.0); Platelet Count 336 K/mm3 (142-424); White Blood Count 11.3 K/mm3 (4.8-10.8)
[2020-01-05 06:59] LABS: Anion Gap 12.8 mEq/L (5-15)
[2020-01-05 07:00] LABS: Calcium 8.9 mg/dl (8.4-10.2)
[2020-01-05 08:55] LABS: Lymphocytes % 12 % (10-50); Monocytes % 16 % (2-9); Neutrophils % 72 % (42-76); Nucleated Red Blood Cells 1; Total Cells Counted 100
[2020-01-05 08:56] LABS: RBC Morphology Normal
--- NOTE | 2020-01-05 10:40 | Progress Note ---
Internal Medicine - PN: Subj *Date: 01/05/20 *Time: 10:39 Exam Vital signs and Labs for Last 24 Hours: Temp Pulse Resp BP Pulse Ox 98.4 F 99 H 24 142/79 H 97 01/05/20 08:00 01/05/20 08:00 01/05/20 08:00 01/05/20 08:00 01/05/20 08:00 Laboratory Results - last 24 hr 01/04/20 05:35: Total Counted 100, Neutrophils % (Manual) 78 H, Lymphocytes % (Manual) 12, Monocytes % (Manual) 10 H, Platelet Estimate Normal, RBC Morphology Normal 01/04/20 11:54: POC Glucose 198 H 01/04/20 16:49: POC Glucose 226 H 01/04/20 20:19: POC Glucose 224 H 01/05/20 05:54: POC Glucose 211 H 01/05/20 06:10: Sodium 138, Potassium 4.8, Chloride 103, Carbon Dioxide 27, Anion Gap 12.8, BUN 79 H, Creatinine 2.40 H, Estimated Creat Clear 38, Estimated GFR 27 L, Est GFR ( Amer) 32 L, Glucose 189 H, Calcium 8.9 01/05/20 06:10: WBC 11.3 H, RBC 3.80 L, Hgb 11.7 L, Hct 37.2 L, MCV 98.0 H, MCH 30.8, MCHC 31.4 L, RDW 16.0, Plt Count 336, Neut % (Auto) 80.1 H, Lymph % (Auto) 10.5, Bee % (Auto) 8.2, Eos % (Auto) 1.1, Baso % (Auto) 0.2, Neut # (Auto) 9.1 H, Lymph # (Auto) 1.2, Bee # (Auto) 0.9, Eos # (Auto) 0.1, Baso # (Auto) 0.0, Total Counted 100, Neutrophils % (Manual) 72, Lymphocytes % (Manual) 12, Monocytes % (Manual) 16 H, Nucleated RBCs 1, Platelet Estimate Normal, RBC Morphology Normal I & O for Last 24 hours: Intake & Output 01/02/20 01/03/20 01/04/20 01/05/20 23:59 23:59 23:59 23:59 Intake Total 540 / 540 770 / 1010 890 / 1010 480 / 480 Output Total 1500 / 1500 1300 / 1300 450 / 1550 2400 / 2400 Balance -960 / -960 -530 / -290 440 / -540 -1920 / -1920 Weight 96.644 kg 96 kg 94.943 kg 97.125 kg Microbiology Reports for the Last 24 Hours: Microbiology 01/01/20 08:00 Blood Blood Culture - Preliminary Klebsiella pneumoniae 01/01/20 08:00 Blood Blood Culture - Preliminary Klebsiella pneumoniae Assessment and Plan (1) Severe sepsis with acute organ dysfunction Current visit: Yes Status: Acute Category: Medical Code(s): A41.9 - Sepsis, unspecified organism; R65.20 - Severe sepsis without septic shock (2) SVT (supraventricular tachycardia) Current visit: Yes Status: Acute Category: Medical Code(s): I47.1 - Supraventricular tachycardia (3) Flu syndrome Current visit: Yes Status: Acute Category: Medical Code(s): J11.1 - Influenza due to unidentified influenza virus with other respiratory manifestations (4) BRITTNI (acute kidney injury) Current visit: Yes Status: Acute Category: Medical Code(s): N17.9 - Acute kidney failure, unspecified (5) Acute exacerbation of CHF (congestive heart failure) Current visit: Yes Status: Acute Qualifiers: Heart failure type: combined systolic and diastolic Qualified Code(s): I50.43 - Acute on chronic combined systolic (congestive) and diastolic (congestive) heart failure Category: Medical Code(s): I50.9 - Heart failure, unspecified (6) Elevated troponin Current visit: No Status: Chronic Category: Medical Code(s): R74.8 - Abnormal levels of other serum enzymes (7) Diabetes mellitus type 2 in obese Current visit: No Status: Chronic Category: Medical Code(s): E11.69 - Type 2 diabetes mellitus with other specified complication; E66.9 - Obesity, unspecified (8) Obesity (BMI 30-39.9) Current visit: Yes Status: Chronic Category: Medical Code(s): E66.9 - Obesity, unspecified (9) UTI due to Klebsiella species Current visit: Yes Status: Acute Category: Medical Code(s): N39.0 - Urinary tract infection, site not specified; B96.89 - Other specified bacterial agents as the cause of diseases classified elsewhere The patient's infection will respond to the chosen ABx?: Yes Is the patient receiving the right drug, dose, and route?: Yes Could a more targeted ABx be ordered?: No (ESBL +)
--- NOTE | 2020-01-05 12:22 | Discharge Summary ---
General - General Admission date:: 01/01/20 Discharge date: 01/05/20 HPI HPI: [facility] with increased hr with hx of a fib and has sob but no chest pain- he was seen in the ed with fever and uti with sepsis - he has increased hr with svt - possible a flutter requiring cardizem drip - pt had flu also - pt was admitted with ivf and abx - Hospital Course Hospital Course: Laboratory Tests 01/01/20 01/01/20 01/01/20 07:50 07:50 07:50 WBC 14.5 H RBC 4.25 L Hgb 13.5 L Hct 40.5 L MCV 95.1 H MCH 31.7 H MCHC 33.3 RDW 15.9 Plt Count 382 MPV 8.3 Neut % (Auto) 85.3 H Lymph % (Auto) 9.6 L [place] % (Auto) 3.8 Eos % (Auto) 1.1 Baso % (Auto) 0.3 Neut # (Auto) 12.4 H Lymph # (Auto) 1.4 [place] # (Auto) 0.6 Eos # (Auto) 0.2 Baso # (Auto) 0.0 Total Counted 100 Neutrophils % (Manual) 86 H Band Neutrophils % 1.0 Lymphocytes % (Manual) 4 L Monocytes % (Manual) 8 Basophils % (Manual) 1.0 Nucleated RBCs Platelet Estimate Normal RBC Morphology Normal ABG pH 7.45 ABG pCO2 31.1 L ABG pO2 84.1 ABG HCO3 21.2 L ABG Total CO2 22.2 L ABG O2 Saturation 97 ABG Base Excess -2.7 L Sodium 138 Potassium 5.1 Chloride 101 Carbon Dioxide 24 Anion Gap 18.1 H BUN 70 H Creatinine 2.90 H Estimated Creat Clear 33 Estimated GFR 21 L Est GFR ( Amer) 26 L Glucose 82 POC Glucose Lactate Calcium 9.9 Magnesium Total Bilirubin 0.9 AST 51 ALT 42 Alkaline Phosphatase 163 H Troponin I 1.62 H NT-Pro-B Natriuret Pep Total Protein 8.3 H Albumin 3.9 Globulin 4.4 H Albumin/Globulin Ratio 0.9 L Urine Color Urine Appearance Urine pH Ur Specific [place] Urine Protein Urine Glucose (UA) Urine Ketones Urine Blood Urine Nitrate Urine Bilirubin Urine Urobilinogen Ur Leukocyte Esterase Urine RBC Urine WBC Ur Squamous Epith Cells Urine Bacteria Chlamy pneumoniae PCR Adenovirus (PCR) B. pertussis DNA (PCR) Coronavirus OC43 (PCR) Coronavirus HKU1 (PCR) Coronavirus 229E (PCR) Coronavirus NL63 (PCR) Human Metapneumovir PCR Influenza A (H1) PCR Influ A (H1N1/) PCR Influenza A (H3) PCR Influenza Type A (PCR) Influenza Type B (PCR) M. pneumoniae (PCR) Parainfluenza 1 (PCR) Parainfluenza 2 (PCR) Parainfluenza 3 (PCR) Parainfluenza 4 (PCR) RSV (PCR) Entero/Rhino (PCR) 01/01/20 01/01/20 01/01/20 07:50 07:50 07:50 WBC RBC Hgb Hct MCV MCH MCHC RDW Plt Count MPV Neut % (Auto) Lymph % (Auto) [place] % (Auto) Eos % (Auto) Baso % (Auto) Neut # (Auto) Lymph # (Auto) [place] # (Auto) Eos # (Auto) Baso # (Auto) Total Counted Neutrophils % (Manual) Band Neutrophils % Lymphocytes % (Manual) Monocytes % (Manual) Basophils % (Manual) Nucleated RBCs Platelet Estimate RBC Morphology ABG pH ABG pCO2 ABG pO2 ABG HCO3 ABG Total CO2 ABG O2 Saturation ABG Base Excess Sodium Potassium Chloride Carbon Dioxide Anion Gap BUN Creatinine Estimated Creat Clear Estimated GFR Est GFR ( Amer) Glucose POC Glucose Lactate 3.3 H Calcium Magnesium Total Bilirubin AST ALT Alkaline Phosphatase Troponin I NT-Pro-B Natriuret Pep 36597 H Total Protein Albumin Globulin Albumin/Globulin Ratio Urine Color Urine Appearance Urine pH Ur Specific [place] Urine Protein Urine Glucose (UA) Urine Ketones Urine Blood Urine Nitrate Urine Bilirubin Urine Urobilinogen Ur Leukocyte Esterase Urine RBC Urine WBC Ur Squamous Epith Cells Urine Bacteria Chlamy pneumoniae PCR Not detected Adenovirus (PCR) Not detected B. pertussis DNA (PCR) Not detected Coronavirus OC43 (PCR) Not detected Coronavirus HKU1 (PCR) Not detected Coronavirus 229E (PCR) Not detected Coronavirus NL63 (PCR) Not detected Human Metapneumovir PCR Not detected Influenza A (H1) PCR Not detected Influ A (H1N1) PCR Not detected Influenza A (H3) PCR Not detected Influenza Type A (PCR) Detected A Influenza Type B (PCR) Not detected M. pneumoniae (PCR) Not detected Parainfluenza 1 (PCR) Not detected Parainfluenza 2 (PCR) Not detected Parainfluenza 3 (PCR) Not detected Parainfluenza 4 (PCR) Not detected RSV (PCR) Not detected Entero/Rhino (PCR) Not detected 01/01/20 01/01/20 01/01/20 08:00 11:30 11:44 WBC RBC Hgb Hct MCV MCH MCHC RDW Plt Count MPV Neut % (Auto) Lymph % (Auto) [place] % (Auto) Eos % (Auto) Baso % (Auto) Neut # (Auto) Lymph # (Auto) [place] # (Auto) Eos # (Auto) Baso # (Auto) Total Counted Neutrophils % (Manual) Band Neutrophils % Lymphocytes % (Manual) Monocytes % (Manual) Basophils % (Manual) Nucleated RBCs Platelet Estimate RBC Morphology ABG pH ABG pCO2 ABG pO2 ABG HCO3 ABG Total CO2 ABG O2 Saturation ABG Base Excess Sodium Potassium Chloride Carbon Dioxide Anion Gap BUN Creatinine Estimated Creat Clear Estimated GFR Est GFR ( Amer) Glucose POC Glucose 126 H Lactate Calcium Magnesium Total Bilirubin AST ALT Alkaline Phosphatase Troponin I 1.36 H NT-Pro-B Natriuret Pep Total Protein Albumin Globulin Albumin/Globulin Ratio Urine Color Yellow Urine Appearance Turbid Urine pH 6.0 Ur Specific [place] 1.020 Urine Protein 2+ Urine Glucose (UA) Negative Urine Ketones Negative Urine Blood 3+ Urine Nitrate Negative Urine Bilirubin Negative Urine Urobilinogen 0.2 Ur Leukocyte Esterase 3+ A Urine RBC 3-5 Urine WBC Tntc Ur Squamous Epith Cells None Urine Bacteria 2+ Chlamy pneumoniae PCR Adenovirus (PCR) B. pertussis DNA (PCR) Coronavirus OC43 (PCR) Coronavirus HKU1 (PCR) Coronavirus 229E (PCR) Coronavirus NL63 (PCR) Human Metapneumovir PCR Influenza A (H1) PCR Influ A (H1N1/09) PCR Influenza A (H3) PCR Influenza Type A (PCR) Influenza Type B (PCR) M. pneumoniae (PCR) Parainfluenza 1 (PCR) Parainfluenza 2 (PCR) Parainfluenza 3 (PCR) Parainfluenza 4 (PCR) RSV (PCR) Entero/Rhino (PCR) 01/01/20 01/01/20 01/01/20 12:29 13:56 16:00 WBC RBC Hgb Hct MCV MCH MCHC RDW Plt Count MPV Neut % (Auto) Lymph % (Auto) [place] % (Auto) Eos % (Auto) Baso % (Auto) Neut # (Auto) Lymph # (Auto) [place] # (Auto) Eos # (Auto) Baso # (Auto) Total Counted Neutrophils % (Manual) Band Neutrophils % Lymphocytes % (Manual) Monocytes % (Manual) Basophils % (Manual) Nucleated RBCs Platelet Estimate RBC Morphology ABG pH ABG pCO2 ABG pO2 ABG HCO3 ABG Total CO2 ABG O2 Saturation ABG Base Excess Sodium Potassium Chloride Carbon Dioxide Anion Gap BUN Creatinine Estimated Creat Clear Estimated GFR Est GFR ( Amer) Glucose POC Glucose 156 H Lactate 1.4 Calcium Magnesium Total Bilirubin AST ALT Alkaline Phosphatase Troponin I 1.25 H NT-Pro-B Natriuret Pep Total Protein Albumin Globulin Albumin/Globulin Ratio Urine Color Urine Appearance Urine pH Ur Specific [place] Urine Protein Urine Glucose (UA) Urine Ketones Urine Blood Urine Nitrate Urine Bilirubin Urine Urobilinogen Ur Leukocyte Esterase Urine RBC Urine WBC Ur Squamous Epith Cells Urine Bacteria Chlamy pneumoniae PCR Adenovirus (PCR) B. pertussis DNA (PCR) Coronavirus OC43 (PCR) Coronavirus HKU1 (PCR) Coronavirus 229E (PCR) Coronavirus NL63 (PCR) Human Metapneumovir PCR Influenza A (H1) PCR Influ A (H1N1/09) PCR Influenza A (H3) PCR Influenza Type A (PCR) Influenza Type B (PCR) M. pneumoniae (PCR) Parainfluenza 1 (PCR) Parainfluenza 2 (PCR) Parainfluenza 3 (PCR) Parainfluenza 4 (PCR) RSV (PCR) Entero/Rhino (PCR) 01/01/20 01/02/20 01/02/20 19:58 05:30 05:30 WBC 14.7 H RBC 3.92 L Hgb 12.3 L Hct 37.6 L MCV 96.0 H MCH 31.3 H MCHC 32.6 RDW 15.9 Plt Count 266 D MPV 8.5 Neut % (Auto) 84.2 H Lymph % (Auto) 6.7 L [place] % (Auto) 7.0 Eos % (Auto) 1.7 Baso % (Auto) 0.4 Neut # (Auto) 12.4 H Lymph # (Auto) 1.0 [place] # (Auto) 1.0 Eos # (Auto) 0.3 Baso # (Auto) 0.1 Total Counted Neutrophils % (Manual) Band Neutrophils % Lymphocytes % (Manual) Monocytes % (Manual) Basophils % (Manual) Nucleated RBCs Platelet Estimate RBC Morphology ABG pH ABG pCO2 ABG pO2 ABG HCO3 ABG Total CO2 ABG O2 Saturation ABG Base Excess Sodium 134 L Potassium 4.9 Chloride 103 Carbon Dioxide 23 Anion Gap 12.9 BUN 79 H Creatinine 2.70 H Estimated Creat Clear 33 Estimated GFR 23 L Est GFR ( Amer) 28 L Glucose 173 H D POC Glucose 180 H Lactate Calcium 9.3 Magnesium 2.3 Total Bilirubin AST ALT Alkaline Phosphatase Troponin I NT-Pro-B Natriuret Pep Total Protein Albumin Globulin Albumin/Globulin Ratio Urine Color Urine Appearance Urine pH Ur Specific [place] Urine Protein Urine Glucose (UA) Urine Ketones Urine Blood Urine Nitrate Urine Bilirubin Urine Urobilinogen Ur Leukocyte Esterase Urine RBC Urine WBC Ur Squamous Epith Cells Urine Bacteria Chlamy pneumoniae PCR Adenovirus (PCR) B. pertussis DNA (PCR) Coronavirus OC43 (PCR) Coronavirus HKU1 (PCR) Coronavirus 229E (PCR) Coronavirus NL63 (PCR) Human Metapneumovir PCR Influenza A (H1) PCR Influ A (H1N1/09) PCR Influenza A (H3) PCR Influenza Type A (PCR) Influenza Type B (PCR) M. pneumoniae (PCR) Parainfluenza 1 (PCR) Parainfluenza 2 (PCR) Parainfluenza 3 (PCR) Parainfluenza 4 (PCR) RSV (PCR) Entero/Rhino (PCR) 01/02/20 01/02/20 01/02/20 05:35 11:04 21:14 WBC RBC Hgb Hct MCV MCH MCHC RDW Plt Count MPV Neut % (Auto) Lymph % (Auto) [place] % (Auto) Eos % (Auto) Baso % (Auto) Neut # (Auto) Lymph # (Auto) [place] # (Auto) Eos # (Auto) Baso # (Auto) Total Counted Neutrophils % (Manual) Band Neutrophils % Lymphocytes % (Manual) Monocytes % (Manual) Basophils % (Manual) Nucleated RBCs Platelet Estimate RBC Morphology ABG pH ABG pCO2 ABG pO2 ABG HCO3 ABG Total CO2 ABG O2 Saturation ABG Base Excess Sodium Potassium Chloride Carbon Dioxide Anion Gap BUN Creatinine Estimated Creat Clear Estimated GFR Est GFR ( Amer) Glucose POC Glucose 179 H 184 H 155 H Lactate Calcium Magnesium Total Bilirubin AST ALT Alkaline Phosphatase Troponin I NT-Pro-B Natriuret Pep Total Protein Albumin Globulin Albumin/Globulin Ratio Urine Color Urine Appearance Urine pH Ur Specific [place] Urine Protein Urine Glucose (UA) Urine Ketones Urine Blood Urine Nitrate Urine Bilirubin Urine Urobilinogen Ur Leukocyte Esterase Urine RBC Urine WBC Ur Squamous Epith Cells Urine Bacteria Chlamy pneumoniae PCR Adenovirus (PCR) B. pertussis DNA (PCR) Coronavirus OC43 (PCR) Coronavirus HKU1 (PCR) Coronavirus 229E (PCR) Coronavirus NL63 (PCR) Human Metapneumovir PCR Influenza A (H1) PCR Influ A (H1N1/09) PCR Influenza A (H3) PCR Influenza Type A (PCR) Influenza Type B (PCR) M. pneumoniae (PCR) Parainfluenza 1 (PCR) Parainfluenza 2 (PCR) Parainfluenza 3 (PCR) Parainfluenza 4 (PCR) RSV (PCR) Entero/Rhino (PCR) 01/03/20 01/03/20 01/03/20 05:39 08:50 11:33 WBC 10.8 D RBC 3.69 L Hgb 11.4 L Hct 36.3 L MCV 98.2 H MCH 30.8 MCHC 31.4 L RDW 16.0 Plt Count 280 MPV Neut % (Auto) 85.9 H Lymph % (Auto) 7.2 L [place] % (Auto) 6.3 Eos % (Auto) 0.5 Baso % (Auto) 0.1 Neut # (Auto) 9.3 H Lymph # (Auto) 0.8 [place] # (Auto) 0.7 Eos # (Auto) 0.1 Baso # (Auto) 0.0 Total Counted 100 Neutrophils % (Manual) 84 H Band Neutrophils % Lymphocytes % (Manual) 8 L Monocytes % (Manual) 8 Basophils % (Manual) Nucleated RBCs 1 Platelet Estimate Normal RBC Morphology Normal ABG pH ABG pCO2 ABG pO2 ABG HCO3 ABG Total CO2 ABG O2 Saturation ABG Base Excess Sodium Potassium Chloride Carbon Dioxide Anion Gap BUN Creatinine Estimated Creat Clear Estimated GFR Est GFR ( Amer) Glucose POC Glucose 162 H 206 H Lactate Calcium Magnesium Total Bilirubin AST ALT Alkaline Phosphatase Troponin I NT-Pro-B Natriuret Pep Total Protein Albumin Globulin Albumin/Globulin Ratio Urine Color Urine Appearance Urine pH Ur Specific [place] Urine Protein Urine Glucose (UA) Urine Ketones Urine Blood Urine Nitrate Urine Bilirubin Urine Urobilinogen Ur Leukocyte Esterase Urine RBC Urine WBC Ur Squamous Epith Cells Urine Bacteria Chlamy pneumoniae PCR Adenovirus (PCR) B. pertussis DNA (PCR) Coronavirus OC43 (PCR) Coronavirus HKU1 (PCR) Coronavirus 229E (PCR) Coronavirus NL63 (PCR) Human Metapneumovir PCR Influenza A (H1) PCR Influ A (H1N1) PCR Influenza A (H3) PCR Influenza Type A (PCR) Influenza Type B (PCR) M. pneumoniae (PCR) Parainfluenza 1 (PCR) Parainfluenza 2 (PCR) Parainfluenza 3 (PCR) Parainfluenza 4 (PCR) RSV (PCR) Entero/Rhino (PCR) 01/03/20 01/03/20 01/04/20 16:31 20:14 05:32 WBC RBC Hgb Hct MCV MCH MCHC RDW Plt Count MPV Neut % (Auto) Lymph % (Auto) [place] % (Auto) Eos % (Auto) Baso % (Auto) Neut # (Auto) Lymph # (Auto) [place] # (Auto) Eos # (Auto) Baso # (Auto) Total Counted Neutrophils % (Manual) Band Neutrophils % Lymphocytes % (Manual) Monocytes % (Manual) Basophils % (Manual) Nucleated RBCs Platelet Estimate RBC Morphology ABG pH ABG pCO2 ABG pO2 ABG HCO3 ABG Total CO2 ABG O2 Saturation ABG Base Excess Sodium Potassium Chloride Carbon Dioxide Anion Gap BUN Creatinine Estimated Creat Clear Estimated GFR Est GFR ( Amer) Glucose POC Glucose 210 H 227 H 187 H Lactate Calcium Magnesium Total Bilirubin AST ALT Alkaline Phosphatase Troponin I NT-Pro-B Natriuret Pep Total Protein Albumin Globulin Albumin/Globulin Ratio Urine Color Urine Appearance Urine pH Ur Specific [place] Urine Protein Urine Glucose (UA) Urine Ketones Urine Blood Urine Nitrate Urine Bilirubin Urine Urobilinogen Ur Leukocyte Esterase Urine RBC Urine WBC Ur Squamous Epith Cells Urine Bacteria Chlamy pneumoniae PCR Adenovirus (PCR) B. pertussis DNA (PCR) Coronavirus OC43 (PCR) Coronavirus HKU1 (PCR) Coronavirus 229E (PCR) Coronavirus NL63 (PCR) Human Metapneumovir PCR Influenza A (H1) PCR Influ A (H1N1/) PCR Influenza A (H3) PCR Influenza Type A (PCR) Influenza Type B (PCR) M. pneumoniae (PCR) Parainfluenza 1 (PCR) Parainfluenza 2 (PCR) Parainfluenza 3 (PCR) Parainfluenza 4 (PCR) RSV (PCR) Entero/Rhino (PCR) 01/04/20 01/04/20 01/04/20 05:35 05:35 11:54 WBC 10.0 RBC 3.86 L Hgb 11.9 L Hct 38.1 L MCV 98.8 H MCH 30.8 MCHC 31.2 L RDW 16.0 Plt Count 316 MPV Neut % (Auto) 80.6 H Lymph % (Auto) 10.4 [place] % (Auto) 7.8 Eos % (Auto) 0.9 Baso % (Auto) 0.2 Neut # (Auto) 8.1 H Lymph # (Auto) 1.0 [place] # (Auto) 0.8 Eos # (Auto) 0.1 Baso # (Auto) 0.0 Total Counted 100 Neutrophils % (Manual) 78 H Band Neutrophils % Lymphocytes % (Manual) 12 Monocytes % (Manual) 10 H Basophils % (Manual) Nucleated RBCs Platelet Estimate Normal RBC Morphology Normal ABG pH ABG pCO2 ABG pO2 ABG HCO3 ABG Total CO2 ABG O2 Saturation ABG Base Excess Sodium 140 Potassium 4.8 Chloride 103 Carbon Dioxide 27 Anion Gap 14.8 BUN 76 H Creatinine 2.30 H Estimated Creat Clear 38 Estimated GFR 28 L Est GFR ( Amer) 34 L D Glucose 188 H POC Glucose 198 H Lactate Calcium 9.0 Magnesium Total Bilirubin AST ALT Alkaline Phosphatase Troponin I NT-Pro-B Natriuret Pep Total Protein Albumin Globulin Albumin/Globulin Ratio Urine Color Urine Appearance Urine pH Ur Specific [place] Urine Protein Urine Glucose (UA) Urine Ketones Urine Blood Urine Nitrate Urine Bilirubin Urine Urobilinogen Ur Leukocyte Esterase Urine RBC Urine WBC Ur Squamous Epith Cells Urine Bacteria Chlamy pneumoniae PCR Adenovirus (PCR) B. pertussis DNA (PCR) Coronavirus OC43 (PCR) Coronavirus HKU1 (PCR) Coronavirus 229E (PCR) Coronavirus NL63 (PCR) Human Metapneumovir PCR Influenza A (H1) PCR Influ A (H1N1/09) PCR Influenza A (H3) PCR Influenza Type A (PCR) Influenza Type B (PCR) M. pneumoniae (PCR) Parainfluenza 1 (PCR) Parainfluenza 2 (PCR) Parainfluenza 3 (PCR) Parainfluenza 4 (PCR) RSV (PCR) Entero/Rhino (PCR) 01/04/20 01/04/20 01/05/20 16:49 20:19 05:54 WBC RBC Hgb Hct MCV MCH MCHC RDW Plt Count MPV Neut % (Auto) Lymph % (Auto) [place] % (Auto) Eos % (Auto) Baso % (Auto) Neut # (Auto) Lymph # (Auto) [place] # (Auto) Eos # (Auto) Baso # (Auto) Total Counted Neutrophils % (Manual) Band Neutrophils % Lymphocytes % (Manual) Monocytes % (Manual) Basophils % (Manual) Nucleated RBCs Platelet Estimate RBC Morphology ABG pH ABG pCO2 ABG pO2 ABG HCO3 ABG Total CO2 ABG O2 Saturation ABG Base Excess Sodium Potassium Chloride Carbon Dioxide Anion Gap BUN Creatinine Estimated Creat Clear Estimated GFR Est GFR ( Amer) Glucose POC Glucose 226 H 224 H 211 H Lactate Calcium Magnesium Total Bilirubin AST ALT Alkaline Phosphatase Troponin I NT-Pro-B Natriuret Pep Total Protein Albumin Globulin Albumin/Globulin Ratio Urine Color Urine Appearance Urine pH Ur Specific [place] Urine Protein Urine Glucose (UA) Urine Ketones Urine Blood Urine Nitrate Urine Bilirubin Urine Urobilinogen Ur Leukocyte Esterase Urine RBC Urine WBC Ur Squamous Epith Cells Urine Bacteria Chlamy pneumoniae PCR Adenovirus (PCR) B. pertussis DNA (PCR) Coronavirus OC43 (PCR) Coronavirus HKU1 (PCR) Coronavirus 229E (PCR) Coronavirus NL63 (PCR) Human Metapneumovir PCR Influenza A (H1) PCR Influ A (H1N1/09) PCR Influenza A (H3) PCR Influenza Type A (PCR) Influenza Type B (PCR) M. pneumoniae (PCR) Parainfluenza 1 (PCR) Parainfluenza 2 (PCR) Parainfluenza 3 (PCR) Parainfluenza 4 (PCR) RSV (PCR) Entero/Rhino (PCR) 01/05/20 01/05/20 01/05/20 06:10 06:10 11:13 WBC 11.3 H RBC 3.80 L Hgb 11.7 L Hct 37.2 L MCV 98.0 H MCH 30.8 MCHC 31.4 L RDW 16.0 Plt Count 336 MPV Neut % (Auto) 80.1 H Lymph % (Auto) 10.5 [place] % (Auto) 8.2 Eos % (Auto) 1.1 Baso % (Auto) 0.2 Neut # (Auto) 9.1 H Lymph # (Auto) 1.2 [place] # (Auto) 0.9 Eos # (Auto) 0.1 Baso # (Auto) 0.0 Total Counted 100 Neutrophils % (Manual) 72 Band Neutrophils % Lymphocytes % (Manual) 12 Monocytes % (Manual) 16 H Basophils % (Manual) Nucleated RBCs 1 Platelet Estimate Normal RBC Morphology Normal ABG pH ABG pCO2 ABG pO2 ABG HCO3 ABG Total CO2 ABG O2 Saturation ABG Base Excess Sodium 138 Potassium 4.8 Chloride 103 Carbon Dioxide 27 Anion Gap 12.8 BUN 79 H Creatinine 2.40 H Estimated Creat Clear 38 Estimated GFR 27 L Est GFR ( Amer) 32 L Glucose 189 H POC Glucose 242 H Lactate Calcium 8.9 Magnesium Total Bilirubin AST ALT Alkaline Phosphatase Troponin I NT-Pro-B Natriuret Pep Total Protein Albumin Globulin Albumin/Globulin Ratio Urine Color Urine Appearance Urine pH Ur Specific [place] Urine Protein Urine Glucose (UA) Urine Ketones Urine Blood Urine Nitrate Urine Bilirubin Urine Urobilinogen Ur Leukocyte Esterase Urine RBC Urine WBC Ur Squamous Epith Cells Urine Bacteria Chlamy pneumoniae PCR Adenovirus (PCR) B. pertussis DNA (PCR) Coronavirus OC43 (PCR) Coronavirus HKU1 (PCR) Coronavirus 229E (PCR) Coronavirus NL63 (PCR) Human Metapneumovir PCR Influenza A (H1) PCR Influ A (H1N1/09) PCR Influenza A (H3) PCR Influenza Type A (PCR) Influenza Type B (PCR) M. pneumoniae (PCR) Parainfluenza 1 (PCR) Parainfluenza 2 (PCR) Parainfluenza 3 (PCR) Parainfluenza 4 (PCR) RSV (PCR) Entero/Rhino (PCR) klebsiella pneumonie in urine and blood.- will continue iv invanz via picc for 5 more days or positive cl recheck bmp on friday. will continue nystain for thrush for 14 days. chest x ray -IMPRESSION: Stable generalized cardiomegaly, no acute chest pathology noted Objective Vital signs: Temp Pulse Resp BP Pulse Ox 98.4 F 99 H 24 142/79 H 97 01/05/20 08:00 01/05/20 08:00 01/05/20 08:00 01/05/20 08:00 01/05/20 08:00 no acute distress, obese - *Routine HEENT Exam Head: Present: normocephalic Eye: Present: PERRL ENT: Present: mucous membranes moist - *Routine Neck Exam Present: supple - *Routine Respiratory Exam Present: CTA bilaterally - *Routine Cardiovascular Exam Present: irregular rhythm - *Routine Abdominal Exam Present: soft, normoactive bowel sounds. Absent: tenderness - *Routine Extremities Exam Absent: cyanosis, clubbing, edema - *Routine Skin Exam Present: warm, wounds. Absent: rash Comments: scattered scabbed areas thoughout body - rt heel has a dark area - *Routine Neurological Exam Present: alert, oriented X3 - Routine Psychiatric Exam Present: normal affect Results Labs on day of discharge: Labs from last 24 hours 01/05/20 01/05/20 01/05/20 11:13 06:10 06:10 WBC 11.3 H RBC 3.80 L Hgb 11.7 L Hct 37.2 L MCV 98.0 H MCH 30.8 MCHC 31.4 L RDW 16.0 Plt Count 336 Neut % (Auto) 80.1 H Lymph % (Auto) 10.5 [place] % (Auto) 8.2 Eos % (Auto) 1.1 Baso % (Auto) 0.2 Neut # (Auto) 9.1 H Lymph # (Auto) 1.2 [place] # (Auto) 0.9 Eos # (Auto) 0.1 Baso # (Auto) 0.0 Total Counted 100 Neutrophils % (Manual) 72 Lymphocytes % (Manual) 12 Monocytes % (Manual) 16 H Nucleated RBCs 1 Platelet Estimate Normal RBC Morphology Normal Sodium 138 Potassium 4.8 Chloride 103 Carbon Dioxide 27 Anion Gap 12.8 BUN 79 H Creatinine 2.40 H Estimated Creat Clear 38 Estimated GFR 27 L Est GFR ( Amer) 32 L Glucose 189 H POC Glucose 242 H Calcium 8.9 01/05/20 01/04/20 01/04/20 05:54 20:19 16:49 WBC RBC Hgb Hct MCV MCH MCHC RDW Plt Count Neut % (Auto) Lymph % (Auto) [place] % (Auto) Eos % (Auto) Baso % (Auto) Neut # (Auto) Lymph # (Auto) [place] # (Auto) Eos # (Auto) Baso # (Auto) Total Counted Neutrophils % (Manual) Lymphocytes % (Manual) Monocytes % (Manual) Nucleated RBCs Platelet Estimate RBC Morphology Sodium Potassium Chloride Carbon Dioxide Anion Gap BUN Creatinine Estimated Creat Clear Estimated GFR Est GFR ( Amer) Glucose POC Glucose 211 H 224 H 226 H Calcium Preliminary micro results at discharge 01/01/20 08:00 Blood Culture - Preliminary Blood Klebsiella pneumoniae 01/01/20 08:00 Blood Culture - Preliminary Blood Klebsiella pneumoniae - Additional Comments rounded with cindy all orders per dr white DS: Diagnosis - Discharge Diagnosis (1) Severe sepsis with acute organ dysfunction Status: Acute (2) SVT (supraventricular tachycardia) Status: Acute (3) Flu syndrome Status: Acute (4) BRITTNI (acute kidney injury) Status: Acute (5) Acute exacerbation of CHF (congestive heart failure) Status: Acute (6) Elevated troponin Status: Chronic (7) Diabetes mellitus type 2 in obese Status: Chronic (8) Obesity (BMI 30-39.9) Status: Chronic (9) UTI due to Klebsiella species Status: Acute Discharge Plan - Patient Discharge Instructions ACTIVITY: Continue current activity DIET: continue same diet Patient Instructions: Urinary Tract Infection, Sepsis, Atrial Fibrillation, DI for Atrial Fibrillation, DI for Urinary Tract Infection (UTI), DI for Sepsis -- Adult - Follow up Plan Follow up with: Juancho Gandhi APRN [Advanced Practice Nurse] - 01/10/20 Disposition: Xfer [facility] Home Medications: Home Medications Medication Instructions Recorded Confirmed Type ascorbic acid (vitamin C) 500 mg 500 mg PO DAILY tab 10/30/17 01/02/20 History tablet atorvastatin 40 mg tablet 40 mg PO HS 10/30/17 01/02/20 History ferrous sulfate 325 mg (65 mg 325 mg PO Q48H tab 10/30/17 01/02/20 History iron) tablet levothyroxine 50 mcg tablet 50 mcg PO DAILY tab 10/30/17 01/02/20 History Duloxetine HCl [Cymbalta 30mg 60 mg PO DAILY 04/12/18 01/02/20 History capsule] carBAMazepine [Tegretol 100mg 100 mg PO BID 08/23/18 01/02/20 History tablet] Docusate Sodium [Colace 250mg 250 mg PO BID 11/23/18 01/02/20 History capsule] Fluticasone Propionate [Flonase 1 spr NS DAILY 11/23/18 01/02/20 History 50mcg nasal spray 16gm] Isosorbide Mononitrate [Imdur 30mg 30 mg PO DAILY 11/23/18 01/02/20 History ER tablet] Insulin Glargine,Hum.rec.anlog 64 unit SQ HS 03/12/19 01/02/20 History [Lantus Insulin 100units/mL 10mL vial] Furosemide [Furosemide 40MG tAB] 40 mg PO BID 04/01/19 01/02/20 History Rivaroxaban [Xarelto 15mg tablet] 15 mg PO QPMWM 04/01/19 01/02/20 History Carboxymethylcellulose Sodium 1 each OP BIDP PRN 06/07/19 01/01/20 History [Thera Tears] Cholecalciferol (Vitamin D3) 2,000 unit PO DAILY 06/08/19 01/02/20 History [Vitamin D3] Insulin Aspart [Novolog] 20 unit SQ ACHS 06/08/19 01/02/20 History Aspirin [Aspirin 81mg chewable 81 mg PO DAILY 07/12/19 01/02/20 History tab] Spironolactone [Aldactone 25mg 25 mg PO DAILY 07/12/19 01/02/20 History Tab] carvediloL [Coreg 25mg Tablet] 50 mg PO BID 07/12/19 01/02/20 History losartan 100 mg tablet 100 mg PO DAILY 07/16/19 01/02/20 History ARIPiprazole [Aripiprazole 10mg 10 mg PO HS 01/02/20 01/02/20 History Tablet] Trazodone HCl 100 mg PO HS 01/02/20 01/02/20 History Ertapenem Sodium [Invanz 1gm Vial] 1 gm IV DAILY 5 Days #5 vial 01/05/20 Rx Nystatin [Nystatin Susp 500,000 500,000 unit PO QID 14 Days #1 udc 01/05/20 Rx Units/5mL Udc] Prescriptions/Medication Reconciliation: New Ertapenem Sodium [Invanz 1gm Vial] 1 gm IV DAILY 5 Days #5 vial Nystatin [Nystatin Susp 500,000 Units/5mL Udc] 500,000 unit PO QID 14 Days #1 udc Continued atorvastatin 40 mg tablet 40 mg PO HS ferrous sulfate 325 mg (65 mg iron) tablet 325 mg PO Q48H tab levothyroxine 50 mcg tablet 50 mcg PO DAILY tab ascorbic acid (vitamin C) 500 mg tablet 500 mg PO DAILY tab losartan 100 mg tablet 100 mg PO DAILY Duloxetine HCl [Cymbalta 30mg capsule] 60 mg PO DAILY Isosorbide Mononitrate [Imdur 30mg ER tablet] 30 mg PO DAILY Fluticasone Propionate [Flonase 50mcg nasal spray 16gm] 1 spr NS DAILY Docusate Sodium [Colace 250mg capsule] 250 mg PO BID Insulin Glargine,Hum.rec.anlog [Lantus Insulin 100units/mL 10mL vial] 64 unit SQ HS Rivaroxaban [Xarelto 15mg tablet] 15 mg PO QPMWM Carboxymethylcellulose Sodium [Thera Tears] 1 each OP BIDP PRN PRN Reason: DRY EYES Insulin Aspart [Novolog] 20 unit SQ ACHS Spironolactone [Aldactone 25mg Tab] 25 mg PO DAILY Aspirin [Aspirin 81mg chewable tab] 81 mg PO DAILY ARIPiprazole [Aripiprazole 10mg Tablet] 10 mg PO HS carBAMazepine [Tegretol 100mg tablet] 100 mg PO BID Furosemide [Furosemide 40MG tAB] 40 mg PO BID Cholecalciferol (Vitamin D3) [Vitamin D3] 2,000 unit PO DAILY carvediloL [Coreg 25mg Tablet] 50 mg PO BID Trazodone HCl 100 mg PO HS - Problem Reconciliation Problems Reviewed?: Yes
--- NOTE | 2020-01-07 07:59 | Electrocardiograph Report ---
APPROVED REPORT Exam: Resting ECG HR:95 bpm ECG Measurements Heart Rate 95 AXES QRSd 84 QRS 105 QT 360 T154 QTc 452 <Conclusion> Atrial fibrillation with premature ventricular or aberrantly conducted complexes Rightward axis Nonspecific ST and T wave abnormality, probably digitalis effect Abnormal ECG Electronically signed by : Sergey King, 01/07/2020 07:58:43
--- NOTE | 2020-01-07 07:59 | Electrocardiograph Report ---
APPROVED REPORT Exam: Resting ECG HR:200 bpm ECG Measurements Heart Rate 200 AXES QRSd 122 QRS -42 QT 254 T137 QTc 463 <Conclusion> Poor data quality, interpretation may be adversely affected Wide QRS tachycardia with occasional premature ventricular complexes Left axis deviation Left ventricular hypertrophy with QRS widening and repolarization abnormality Inferior infarct, age undetermined Abnormal ECG Electronically signed by : Sergey King, 01/07/2020 07:58:48
== END 2020-01-05 21:20 | DRG 689 ==
LOC: 2ND 07:39 → ER 07:39 → OBSVTOIN 11:09 → 2ND 11:10
PROVIDERS: ADMIT Emergency Medicine; ATTEND Emergency Medicine
CPT/HCPCS: 36415; 36569; 71010; 71045; 80048; 80053; 81001; 82803; 82962; 83605; 83735; 83880; 84484; 85007; 85014; 85018; 85025; 85048; 85049; 87040; 87077; 87086; 87088; 87186; 87486; 87581; 87633; 87798; 93005; 96365; 96367; 96375; 99285; C1751; J1335

== ENCOUNTER 2020-02-04 09:35 | Inpatient (IN) | payer MEDICARE, SELFPAY ==
[2020-02-04] VITALS (12 sets, daily range): BP systolic 104–138; BP diastolic 40–90; PULSE 90–102; RESP 18–22; TEMP 36.4–37.1; O2SAT 92–100; BMI 21.7; BMI 30.4
--- NOTE | 2020-02-04 09:51 | XR_ITS ---
PROCEDURE: XR CHEST PORTABLE CLINICAL HISTORY: COUGH, SOA, WEAKNESS COMPARISON: XR CHEST PORTABLE PICC PLAC from 01/05/2020 XR CHEST PORTABLE PICC PLAC from 01/05/2020 XR CHEST PORTABLE PICC PLAC from 01/05/2020 FINDINGS: There is cardiomegaly without failure. The lungs are clear without infiltrates, suspicious nodules, or pleural effusions. Degenerative changes of the shoulders IMPRESSION: Cardiomegaly otherwise negative Dictated by: Cameron Daniels MD 02/04/2020 11:15 Electronically signed by Cameron Daniels MD in [place] 02/04/2020 11:15
[2020-02-04 09:57] LABS: Microscopic, Urine URINE MICROSCOPIC (MICROSCOPIC)
--- NOTE | 2020-02-04 10:00 | CT_ITS ---
PROCEDURE: CT CHEST WO CON CLINICAL INDICATION: COUGH, SOA, RECENT FLU, WEAKNESS Shortness of air, cough, weakness COMPARISON: ABDPELW/O CT ABD PELVIS W/O CONTRAST from 06/23/2017 XR CHEST PORTABLE from 02/04/2020 TECHNIQUE: Axial images obtained with sagittal and coronal reformats. All CT scans at the facility use one or more dose reduction, viz: automated exposure control, ma/kV adjustment per patient size (including targeted exams where dose is matched to indication, i.e. head), or iterative reconstruction technique. FINDINGS: HEART AND MEDIASTINAL STRUCTURES: There are coronary artery calcifications. There is mild cardiomegaly. No mediastinal or hilar mass. LUNGS AND PLEURAL SPACES: No lobar consolidation or collapse. There is some mild atelectatic or fibrotic change in the left upper lobe laterally and inferiorly and in the left lower lobe laterally and anteriorly. There is a 4 mm noncalcified nodule in the left lower lobe posteriorly nonspecific too small to categorize. No effusions. BONY STRUCTURES: Degenerative changes thoracic spine with slight decrease in height of multiple thoracic vertebral bodies age indeterminate the UPPER ABDOMEN: There is some increased density in the posterior aspect of the gallbladder suggesting cholelithiasis or gallbladder sludge which may be better evaluated with ultrasound. Is a small exophytic right renal cyst at 1.9 cm. ADDITIONAL FINDINGS: No other significant abnormalities. IMPRESSION: 1. Mild atelectatic or fibrotic changes in the left upper and left lower lobe 2. Cardiomegaly. 3. 4 mm left lower lobe nodule. Consider 12 month follow-up 4. Possible cholelithiasis or gallbladder sludge which may be better evaluated with ultrasound Dictated by: Cameron Daniels MD 02/04/2020 11:01 Electronically signed by Cameron Daniels MD in [facility] 02/04/2020 11:01
[2020-02-04 10:02] LABS: Appearance,Urine CLOUDY (Clear); Bilirubin,Urine Negative (Negative); Blood, Urine 3+ (Negative); Color,Urine YELLOW (Yellow); Glucose,Urine (UA) Negative (Negative); Ketones,Urine Negative (Negative); Leukocyte Esterase,Urine 3+ (Negative); Nitrate,Urine Negative (Negative); Protein,Urine 1+ (Negative); Urobilinogen,Urine 0.2 EU/dl (0.2)
[2020-02-04 10:03] LABS: Basophils # 0.1 K/mm3 (0-0.2); Basophils % 0.7 % (0.1-2.0); Eosinophils # 0.3 K/mm3 (0.0-0.4); Eosinophils % 2.7 % (0.1-12.0); Hematocrit 28.8 % (42.0-52.0); Hemoglobin 8.9 g/dL (14.1-18.0); Lymphocytes % 8.2 % (10-50); Mean Corpuscular HGB Conc 30.8 g/dL (31.8-35.4); Mean Corpuscular Hemoglobin 30.8 pg (27.0-31.2); Mean Platelet Volume 8.4 fl (7.4-10.4); Monocytes # 0.7 K/mm3 (0.1-1.0); Monocytes % 6.2 % (1.7-9.3); Neutrophils # 9.9 K/mm3 (1.8-7.8); Neutrophils % 82.3 % (37.0-80.0); Platelet Count 405 K/mm3 (142-424); Red Blood Count 2.88 M/mm3 (4.60-6.20); Red Cell Distribution Width 16.3 % (11.5-17.5)
[2020-02-04 10:06] LABS: Chloride 104 mmol/L (98-107); Sodium 136 mmol/L (136-145)
--- NOTE | 2020-02-04 10:06 | PC.NURSE ---
SPEAKING TO GENEVA VILLAVICENCIO
[2020-02-04 10:07] LABS: Potassium 4.3 mmoL/L (3.5-5.1)
[2020-02-04 10:09] LABS: Alanine Aminotransferase 30 U/L (12-78); Albumin Level 3.3 g/dl (3.5-5.0); Albumin/Globulin Ratio 0.8 (1.1-1.8); Alkaline Phosphatase 188 U/L (38-126); Anion Gap 14.3 mEq/L (5-15); Aspartate Amino Transferase 29 U/L (17-59); Bilirubin,Total 0.7 mg/dl (0.2-1.3); Calcium 9.8 mg/dl (8.4-10.2); Carbon Dioxide 22 mmol/L (22.0-30.0); Creatinine Clearance Estimated 21 mL/min (50-200); Estimated Glomerular Filt Rate 20 ml/min (>60); GFR (African American) 24 ML/MIN (>60); Globulin 4.1 g/dL (1.3-3.2); Glucose 132 mg/dl (74-100); Total Protein,Serum 7.4 g/dl (6.3-8.2)
--- NOTE | 2020-02-04 10:10 | PC.NURSE ---
LAB NOTIFIED THAT THEY NEED TO OBTAINED COVID TEST
[2020-02-04 10:13] LABS: Blood Urea Nitrogen 104 mg/dl (9-20)
[2020-02-04 10:16] LABS: Strep Scrn Group A (Rapid) Negative (Negative)
--- NOTE | 2020-02-04 10:16 | PC.NURSE ---
Pt to rad.
--- NOTE | 2020-02-04 10:30 | PC.NURSE ---
Pt returned from rad.
[2020-02-04 10:39] LABS: C-Reactive Protein 147.4 mg/L (0-4)
[2020-02-04 10:45] LABS: Erythrocyte Sedimentation Rate > 140 mm/hr (0-20)
[2020-02-04 10:45] LABS: Bacteria,Urine 2+ /lpf; WBC,Urine 50-100 #/hpf (0-3)
--- NOTE | 2020-02-04 10:51 | PC.NURSE ---
Pt given blanket and lights turned off per his request.
--- NOTE | 2020-02-04 10:55 | HMH.EDGENADL ---
ED Disposition Clinical Impression: UTI (urinary tract infection), Sepsis, Suspected COVID-19 virus infection Clinical Impression: (Ruled Out): Severe sepsis with acute organ dysfunction Disposition: Admitted as Observation Condition on Discharge: Good Additional Instructions: Spoke to Dr. Vazquez about this patient for admission. Referrals: Dave Vazquez MD [Primary Care Provider] - - Critical Care Critical Care Time: Yes (25) Attestation: On 02/04/20, the high probability of a clinically significant, sudden or life threatening deterioration of the following system(s) required my full and direct attention, intervention and personal management. The time I documented below is in addition to time spent performing reported procedures but includes the following listed in this critical care notation. Vital system(s) involved:: Renal Failure, Shock (Septic) My critical care processes included: Assessment & monitoring of V/S, Initial and Re-exams, Data Review/Interpretation, Coordinating Care, Medication Orders and management, Documentation Medical Decision Making - Medical Records Medical records reviewed: Yes: I reviewed the patient's medical records. - Yogesh Inquiry Pt receiving controlled substance: No Vital Signs: 02/04/20 09:34 02/04/20 09:54 02/04/20 10:51 Temperature 98.1 F Temperature Source Rectal Pulse Rate [Right Radial] 96 H 92 H 92 H Respiratory Rate 18 Blood Pressure [Right Arm] 138/40 L 113/58 L 109/67 L Blood Pressure Mean [Right Arm] 72 76 81 Blood Pressure Source [Right Arm] Automatic Cuff Automatic Cuff Automatic Cuff Blood Pressure Position [Right Arm] Supine Sitting Supine 02 Sat by Pulse Oximetry 99 100 92 L Oxygen Delivery Method Room Air Room Air 02/04/20 11:30 02/04/20 12:09 02/04/20 12:45 Temperature Temperature Source Pulse Rate [Right Radial] 94 H 99 H 102 H Respiratory Rate Blood Pressure [Right Arm] 104/63 L 116/68 122/62 Blood Pressure Mean [Right Arm] 76 84 82 Blood Pressure Source [Right Arm] Automatic Cuff Automatic Cuff Automatic Cuff Blood Pressure Position [Right Arm] Sitting Sitting Sitting 02 Sat by Pulse Oximetry 94 L 94 L 95 Oxygen Delivery Method Room Air Room Air Room Air - Lab Data Lab results reviewed: Yes: I reviewed the patient's lab results. Lab Results 02/04/20 09:35: WBC 12.0 H, RBC 2.88 L, Hgb 8.9 L, Hct 28.8 L, MCV 100.0 H, MCH 30.8, MCHC 30.8 L, RDW 16.3, Plt Count 405, MPV 8.4, Neut % (Auto) 82.3 H, Lymph % (Auto) 8.2 L, [place] % (Auto) 6.2, Eos % (Auto) 2.7, Baso % (Auto) 0.7, Neut # (Auto) 9.9 H, Lymph # (Auto) 1.0, [place] # (Auto) 0.7, Eos # (Auto) 0.3, Baso # (Auto) 0.1 02/04/20 09:35: Sodium 136, Potassium 4.3, Chloride 104, Carbon Dioxide 22, Anion Gap 14.3, BUN 104 H*, Creatinine 3.10 H, Estimated Creat Clear 21, Estimated GFR 20 L, Est GFR ( Amer) 24 L, Glucose 132 H, Calcium 9.8, Total Bilirubin 0.7, AST 29, ALT 30, Alkaline Phosphatase 188 H, Total Protein 7.4, Albumin 3.3 L, Globulin 4.1 H, Albumin/Globulin Ratio 0.8 L 02/04/20 09:35: Lactate 2.0 02/04/20 09:35: Influenza Type A Ag Negative, Influenza Type B Ag Negative 02/04/20 09:35: Group A Strep Rapid Negative 02/04/20 09:35: ESR > 140 H 02/04/20 09:35: C-Reactive Protein 147.4 H 02/04/20 09:55: Urine Color Yellow, Urine Appearance Cloudy, Urine pH 6.0, Ur Specific [place] 1.020, Urine Protein 1+, Urine Glucose (UA) Negative, Urine Ketones Negative, Urine Blood 3+, Urine Nitrate Negative, Urine Bilirubin Negative, Urine Urobilinogen 0.2, Ur Leukocyte Esterase 3+ A, Urine RBC 5-10, Urine WBC 50-100, Ur Squamous Epith Cells None, Urine Bacteria 2+ Result diagrams: 02/04/20 09:35 02/04/20 09:35 Orders (Tests/Meds): ORDERS Category Date Time Status SARS-CoV-2, MESFIN Stat Lab 02/04/20 10:15 Received Blood Culture Stat Micro 02/04/20 09:54 Received Strep Screen Confirmation Stat Micro 02/04/20 09:35 Received Urine Culture Stat Micro 02/04/20 09:55 Received
--- NOTE | 2020-02-04 11:25 | PC.NURSE ---
Dr Vazquez paged, he will return call.
--- NOTE | 2020-02-04 12:31 | PC.NURSE ---
Called Dr. Vazquez's office again and was informed that he was out of the office right now and the office staff will be texting him to remind him to lyle us.
--- NOTE | 2020-02-04 13:20 | PC.NURSE ---
Called Dr. Vazquez's office. She advised he had not made it back to the office yet and she would have him call as soon as he returned.
--- NOTE | 2020-02-04 13:25 | PC.NURSE ---
SPEAKING TO DR MCKENZIE
--- NOTE | 2020-02-04 13:33 | PC.NURSE ---
CALLED HOUSE FOR BED ASSIGNMENT, CASE MANAGEMENT PAGE FOR STATUS ASSIGNMENT
--- NOTE | 2020-02-04 14:16 | PC.NURSE ---
ATTEMPTED TO CALL REPORT ON PT. MARGIE ADVISED THAT SHE WOULD CALL ME BACK.
--- NOTE | 2020-02-04 14:20 | PC.NURSE ---
Report received from Oralia Ma RN
[2020-02-04 16:31] LABS: POC Glucose,Bedside 229 (70-110)
[2020-02-04 20:47] LABS: POC Glucose,Bedside 199 (70-110)
--- NOTE | 2020-02-04 22:42 | HMH.HP ---
*Admission Date: 02/04/20 *Chief complaint: change in mental status *History of present illness: this pt from [facility] with reported low bp - pt was seen in the ed -75-year-old gentleman presents from the snf with generalized fatigue malaise chills mild cough and shortness of breath x5 weeks. Patient was seen here on 01/01/2020 diagnosed with influenza and subsequently treated however patient did tell me that he just really has not improved since he was diagnosed with influenza. He is extremely lethargic and looks acutely ill. His rectal temperature here is 98.1 and there has been no documented fevers at the snf as well. Patient's vital signs are stable and his O2 saturations are 98% on room air. Patient also states that he has had a very poor appetite to for the last 3 to 4 weeks as well. Patient denies any nausea or vomiting. Patient also denies any diarrhea. Patient denies any chest pain or sore throat. Patient did state that it is difficult to relieve his bladder. And he also has some dysuria. That has been going on for the last 3 to 4 days. pt was admitted with uti and julio - H History I have reviewed the patient's past medical history: Yes Medical History: Reports:: Arrhythmia, Atrial Fibrillation, Cancer, Cardiomyopathy, Congestive Heart Failure, Chronic Obstructive Pulmonary Disease (COPD), Coronary Artery Disease, Diabetes Mellitus Type 2, Hyperlipidemia, Hypertension, Myocardial Infarction, Peripheral Vascular Disease, Renal Disease Denies:: Diabetes Mellitus Type 1, Internal Pacemaker, Lung Disease, MRSA, Seizures *Have you ever received a pneumonia vaccine?: Yes *Have you received a flu vaccine this season?: Yes Other Medical History: Reports: Anemia, Hypothyroidism Laterality Cases: Left: Total Hip Replacement, Other, Bilateral: Tonsillectomy Other Surgeries: Yes: Cardiac Catheterization, Colonoscopy, Coronary Stent, Other. No: Pacemaker Amputation: No Fractures: Yes - *Social History Smoking Status: Never smoker Tobacco Type: cigarettes # Packs/Day (cigarettes): 2 #Yrs smoked (if former smoker): 25 Alcohol Intake: never Alcohol Intake Frequency:: other Substance Use Type: denies use *Occupational Status:: retired Housing: assisted living facility Household Members: other *Travel in the last 8 weeks: None Family Hx:: Unable to obtain Review of Systems - Review of Systems Review of systems:: pertinent systems reviewed and negative unless documented below - Constitutional Reports fever(s), Reports weakness - Eyes Denies change in vision - ENT Reports dry mouth - *Cardiovascular Denies chest pain at rest - *Respiratory Denies cough, Denies shortness of breath - *Gastrointestinal Denies abdominal pain - *Genitourinary Denies blood in urine - *Musculoskeletal Denies joint pain, Denies neck pain - Integumentary/Breasts Denies rash - *Neurologic Denies frequent falls - Psychiatric Reports confusion Meds Home Medications Medication Instructions Recorded Confirmed Type ascorbic acid (vitamin C) 500 mg 500 mg PO DAILY tab 10/30/17 02/04/20 History tablet atorvastatin 40 mg tablet 40 mg PO HS 10/30/17 02/04/20 History ferrous sulfate 325 mg (65 mg 325 mg PO Q48H tab 10/30/17 02/04/20 History iron) tablet levothyroxine 50 mcg tablet 50 mcg PO DAILY tab 10/30/17 02/04/20 History Duloxetine HCl [Cymbalta 30mg 60 mg PO DAILY 04/12/18 02/04/20 History capsule] carBAMazepine [Tegretol 100mg 100 mg PO BID 08/23/18 02/04/20 History tablet] Docusate Sodium [Colace 250mg 250 mg PO BID 11/23/18 02/04/20 History capsule] Fluticasone Propionate [Flonase 1 spr NS DAILY 11/23/18 02/04/20 History 50mcg nasal spray 16gm] Isosorbide Mononitrate [Imdur 30mg 30 mg PO DAILY 11/23/18 02/04/20 History ER tablet] Insulin Glargine,Hum.rec.anlog 64 unit SQ HS 03/12/19 02/04/20 History [Lantus Insulin 100units/mL 10mL vial] Rivaroxaban [Xarelto 15mg tablet] 1
[2020-02-05] VITALS: BP 126/89; PULSE 103; RESP 18; TEMP 37.6; O2SAT 99
[2020-02-05 03:52] VITALS: BP 156/76; PULSE 103; RESP 18; TEMP 37.2; O2SAT 98
--- NOTE | 2020-02-05 04:24 | PC.NURSE ---
PT. ABLE TO STATE NAME, ; UNABLE TO STATE YEAR OR PLACE; ABLE TO FOLLOW COMMANDS. PT. HAS HAD NO EPISODES OF VOMITING OR DIARRHEA. PT. HAD ONE SMALL SOFT BM THIS SHIFT. INTERMITTENT NONPRODUCTIVE COUGH NOTED WITH DIMINISHED LUNG SOUNDS T/O BILAT. FC IN PLACE WITH DARK YELLOW URINE AND SEDIMENT PRESENT. NO NEEDS EXPRESSED AT THIS TIME.
[2020-02-05 05:38] LABS: POC Glucose,Bedside 199 (70-110)
[2020-02-05 08:00] VITALS: BP 142/79; PULSE 99; RESP 18; TEMP 37.1; O2SAT 97
--- NOTE | 2020-02-05 08:56 | HMH.PHAINT ---
MEDICATION RECONCILIATION COMPLETED ON PATIENT USING MAR FROM ALF. -ALBERT CORTÉS, JESSICAD
--- NOTE | 2020-02-05 08:57 | P.CONPHA_ITS ---
[facility] Pharm[facility] VTE Monitoring - Patient Demographics Admission date: 02/04/20 Report Date: 02/05/20 Time: 08:57 Allergies/Adverse Reactions: Patient Allergies No Known Allergies Allergy (Verified 01/16/20 13:26) Height: 1.73 m Weight: 90.01 kg Patient Problems: Current Active Problems (Last Updated 11/12/19 @ 13:29 by Cara Mendoza RN) Sepsis (Acute) Suspected COVID-19 virus infection (Acute) UTI (urinary tract infection) (Acute) - VTE Risk Labs: VTE Related Lab Results Hgb 8.9 g/dL (14.1-18.0) L 02/04/20 09:35 Hct 28.8 % (42.0-52.0) L 02/04/20 09:35 Plt Count 405 K/mm3 (142-424) 02/04/20 09:35 BUN 104 mg/dl (9-20) H* 02/04/20 09:35 Creatinine 3.10 mg/dl (0.66-1.25) H 02/04/20 09:35 Estimated Creat Clear 21 mL/min (50-200) 02/04/20 09:35 Was VTE Risk Assessment Performed: Yes VTE Score: 11 VTE Risk Level: Moderate Risk - Prophylaxis VTE Prophylaxis Ordered?: Yes Types of VTE Prophylaxis: TEDS Knee High Location of Applied Device: Bilateral Lower Extremeties - VTE Diagnosis Confirmed Treatment or plan recommended: Continue Current Treatment
--- NOTE | 2020-02-05 09:42 | P.PN_ITS ---
Internal Medicine - PN: Subj *Date: 02/06/20 *Time: 08:15 Interval history: doing better this am - gram karthik sepsis/ uti Exam Vital signs and Labs for Last 24 Hours: Temp Pulse Resp BP Pulse Ox 98.7 F 99 H 18 142/79 H 97 02/05/20 08:00 02/05/20 08:00 02/05/20 08:00 02/05/20 08:00 02/05/20 08:00 Laboratory Results - last 24 hr 02/04/20 09:35: WBC 12.0 H, RBC 2.88 L, Hgb 8.9 L, Hct 28.8 L, MCV 100.0 H, MCH 30.8, MCHC 30.8 L, RDW 16.3, Plt Count 405, MPV 8.4, Neut % (Auto) 82.3 H, Lymph % (Auto) 8.2 L, [place] % (Auto) 6.2, Eos % (Auto) 2.7, Baso % (Auto) 0.7, Neut # (Auto) 9.9 H, Lymph # (Auto) 1.0, [place] # (Auto) 0.7, Eos # (Auto) 0.3, Baso # (Auto) 0.1 02/04/20 09:35: Sodium 136, Potassium 4.3, Chloride 104, Carbon Dioxide 22, Anion Gap 14.3, BUN 104 H*, Creatinine 3.10 H, Estimated Creat Clear 21, Estimated GFR 20 L, Est GFR ( Amer) 24 L, Glucose 132 H, Calcium 9.8, Total Bilirubin 0.7, AST 29, ALT 30, Alkaline Phosphatase 188 H, Total Protein 7.4, Albumin 3.3 L, Globulin 4.1 H, Albumin/Globulin Ratio 0.8 L 02/04/20 09:35: Lactate 2.0 02/04/20 09:35: Influenza Type A Ag Negative, Influenza Type B Ag Negative 02/04/20 09:35: Group A Strep Rapid Negative 02/04/20 09:35: ESR > 140 H 02/04/20 09:35: C-Reactive Protein 147.4 H 02/04/20 09:55: Urine Color Yellow, Urine Appearance Cloudy, Urine pH 6.0, Ur Specific [place] 1.020, Urine Protein 1+, Urine Glucose (UA) Negative, Urine Ketones Negative, Urine Blood 3+, Urine Nitrate Negative, Urine Bilirubin Ne gative, Urine Urobilinogen 0.2, Ur Leukocyte Esterase 3+ A, Urine RBC 5-10, Urine WBC 50-100, Ur Squamous Epith Cells None, Urine Bacteria 2+ 02/04/20 16:20: POC Glucose 229 H 02/04/20 20:28: POC Glucose 199 H 02/05/20 05:02: POC Glucose 199 H I & O for Last 24 hours: Intake & Output 02/02/20 02/03/20 02/04/20 02/05/20 11:59 11:59 11:59 11:59 Intake Total 3005 / 3005 Output Total 500 / 500 Balance 2505 / 2505 Weight 160 lb 198 lb 7 oz Microbiology Reports for the Last 24 Hours: Microbiology 02/04/20 09:54 Blood Blood Culture - Preliminary Gram Negative Rods 02/04/20 09:55 Urine,Catheterized Urine Culture - Preliminary Gram Negative Rods - Constitutional no acute distress, chronically ill appearing - *Routine HEENT Exam Head: Present: normocephalic Eye: Present: EOMI, PERRL ENT: Present: mucous membranes dry - *Routine Neck Exam Absent: JVD - *Routine Respiratory Exam Present: decreased breath sounds - *Routine Cardiovascular Exam Present: RRR, murmur - *Routine Abdominal Exam Present: soft - *Routine Extremities Exam Absent: calf tenderness - *Routine Skin Exam Present: intact - *Routine Neurological Exam Present: alert, CN II-XII intact - Routine Psychiatric Exam Present: unable to assess Assessment and Plan (1) Sepsis due to Klebsiella pneumoniae Current visit: Yes Status: Acute Category: Medical Code(s): A41.4 - Sepsis due to anaerobes (2) UTI due to Klebsiella species Current visit: Yes Status: Acute Category: Medical Code(s): N39.0 - Urinary tract infection, site not specified; B96.89 - Other specified bacterial agents as the cause of diseases classified elsewhere
[2020-02-05 11:32] LABS: POC Glucose,Bedside 198 (70-110)
[2020-02-05 12:00] VITALS: BP 102/58; PULSE 99; RESP 20; TEMP 36.7; O2SAT 100
[2020-02-05 12:23] LABS: Basophils # 0.1 K/mm3 (0-0.2); Basophils % 0.8 % (0.1-2.0); Eosinophils # 0.3 K/mm3 (0.0-0.4); Eosinophils % 2.5 % (0.1-12.0); Lymphocytes # 0.7 K/mm3 (0.7-4.5); Lymphocytes % 6.5 % (10-50); Mean Corpuscular Hemoglobin 31.1 pg (27.0-31.2); Mean Corpuscular Volume 100.3 fl (80-94); Mean Platelet Volume 8.1 fl (7.4-10.4); Monocytes # 0.6 K/mm3 (0.1-1.0); Monocytes % 5.6 % (1.7-9.3); Neutrophils # 9.5 K/mm3 (1.8-7.8); Neutrophils % 84.6 % (37.0-80.0); Platelet Count 387 K/mm3 (142-424); Red Blood Count 2.51 M/mm3 (4.60-6.20); Red Cell Distribution Width 16.5 % (11.5-17.5); White Blood Count 11.2 K/mm3 (4.8-10.8)
[2020-02-05 12:27] LABS: Hematocrit 24.8 % (42.0-52.0); Hemoglobin 7.7 g/dL (14.1-18.0)
[2020-02-05 12:30] LABS: Calcium 9.1 mg/dl (8.4-10.2); Carbon Dioxide 21 mmol/L (22.0-30.0); Chloride 107 mmol/L (98-107); Creatinine Clearance Estimated 34 mL/min (50-200); Estimated Glomerular Filt Rate 27 ml/min (>60); GFR (African American) 32 ML/MIN (>60); Glucose 196 mg/dl (74-100); Sodium 137 mmol/L (136-145)
[2020-02-05 12:32] LABS: Blood Urea Nitrogen 86 mg/dl (9-20)
--- NOTE | 2020-02-05 14:05 | PC.NURSE ---
Pt has slept most of the shift thus far. He will awaken and answer questions readily. He fed himself lunch and ate 50%. Denies shortness of breath/pain. He does required reassurance intermittently that he is not dying. Pt often declines being turned. When he does allow turning, he immediately goes back to his left side position.
[2020-02-05 15:46] VITALS: BP 132/86; PULSE 103; RESP 18; TEMP 37; O2SAT 96
[2020-02-05 15:48] LABS: POC Glucose,Bedside 199 (70-110)
[2020-02-05 20:00] VITALS: BP 115/71; PULSE 95; RESP 16; TEMP 36.7; O2SAT 95
[2020-02-05 20:20] LABS: POC Glucose,Bedside 198 (70-110)
[2020-02-06] VITALS (28 sets, daily range): BP systolic 122–190; BP diastolic 60–97; PULSE 88–110; RESP 16–18; TEMP 36.3–37; O2SAT 92–99
[2020-02-06 05:56] LABS: POC Glucose,Bedside 223 (70-110)
[2020-02-06 06:01] LABS: Basophils % 0.4 % (0.1-2.0); Eosinophils # 0.2 K/mm3 (0.0-0.4); Eosinophils % 2.4 % (0.1-12.0); Lymphocytes # 0.7 K/mm3 (0.7-4.5); Monocytes # 0.6 K/mm3 (0.1-1.0)
--- NOTE | 2020-02-06 06:06 | PC.NURSE ---
patient has rested throughout the shift, dent catheter patent, urine output adequate much clearer than the beginning of the shift.
[2020-02-06 06:07] LABS: Lymphocytes % 7.6 % (10-50); Mean Corpuscular HGB Conc 30.9 g/dL (31.8-35.4); Mean Corpuscular Hemoglobin 31.1 pg (27.0-31.2); Mean Corpuscular Volume 100.5 fl (80-94); Mean Platelet Volume 8.4 fl (7.4-10.4); Monocytes % 6.2 % (1.7-9.3); Neutrophils % 83.3 % (37.0-80.0); Platelet Count 371 K/mm3 (142-424); Red Blood Count 2.31 M/mm3 (4.60-6.20); Red Cell Distribution Width 16.4 % (11.5-17.5); White Blood Count 9.6 K/mm3 (4.8-10.8)
[2020-02-06 06:14] LABS: Hematocrit 23.2 % (42.0-52.0); Hemoglobin 7.2 g/dL (14.1-18.0)
[2020-02-06 06:28] LABS: Anion Gap 10.9 mEq/L (5-15); Blood Urea Nitrogen 66 mg/dl (9-20); Calcium 8.6 mg/dl (8.4-10.2); Carbon Dioxide 20 mmol/L (22.0-30.0); Chloride 111 mmol/L (98-107); Creatinine Clearance Estimated 43 mL/min (50-200); Estimated Glomerular Filt Rate 35 ml/min (>60); GFR (African American) 42 ML/MIN (>60); Glucose 209 mg/dl (74-100); Potassium 3.9 mmoL/L (3.5-5.1); Sodium 138 mmol/L (136-145)
--- NOTE | 2020-02-06 09:03 | HMH.ACPN2 ---
Internal Medicine - PN: Subj *Date: 02/07/20 *Time: 07:11 Interval history: doing better - low h/h and will require transfusion - covid test pending Exam Vital signs and Labs for Last 24 Hours: Temp Pulse Resp BP Pulse Ox 97.9 F 95 H 17 135/74 98 02/06/20 08:45 02/06/20 08:45 02/06/20 08:45 02/06/20 08:45 02/06/20 08:45 Laboratory Results - last 24 hr 02/05/20 11:24: POC Glucose 198 H 02/05/20 12:00: WBC 11.2 H, RBC 2.51 L, Hgb 7.7 L*, Hct 24.8 L, MCV 100.3 H, MCH 31.1, MCHC 31.0 L, RDW 16.5, Plt Count 387, MPV 8.1, Neut % (Auto) 84.6 H, Lymph % (Auto) 6.5 L, [place] % (Auto) 5.6, Eos % (Auto) 2.5, Baso % (Auto) 0.8, Neut # (Auto) 9.5 H, Lymph # (Auto) 0.7, [place] # (Auto) 0.6, Eos # (Auto) 0.3, Baso # (Auto) 0.1 02/05/20 12:00: Sodium 137, Potassium 4.0, Chloride 107, Carbon Dioxide 21 L, Anion Gap 13.0, BUN 86 H, Creatinine 2.40 H D, Estimated Creat Clear 34, Estimated GFR 27 L, Est GFR ( Amer) 32 L D, Glucose 196 H, Calcium 9.1 02/05/20 15:40: POC Glucose 199 H 02/05/20 19:47: POC Glucose 198 H 02/06/20 05:46: POC Glucose 223 H 02/06/20 05:50: WBC 9.6, RBC 2.31 L, Hgb 7.2 L*, Hct 23.2 L*, MCV 100.5 H, MCH 31.1, MCHC 30.9 L, RDW 16.4, Plt Count 371, MPV 8.4, Neut % (Auto) 83.3 H, Lymph % (Auto) 7.6 L, [place] % (Auto) 6.2, Eos % (Auto) 2.4, Baso % (Auto) 0.4, Neut # (Auto) 8.0 H, Lymph # (Auto) 0.7, [place] # (Auto) 0.6, Eos # (Auto) 0.2, Baso # (Auto) 0.0 02/06/20 05:50: Sodium 138, Potassium 3.9, Chloride 111 H, Carbon Dioxide 20 L, Anion Gap 10.9, BUN 66 H, Creatinine 1.90 H D, Estimated Creat Clear 43, Estimated GFR 35 L, Est GFR ( Amer) 42 L D, Glucose 209 H, Calcium 8.6 02/06/20 06:45: Blood Type O Negative, Antibody Screen Negative, Crossmatch (AHG) See Detail 02/06/20 07:25: Blood Type Confirm O Negative I & O for Last 24 hours: Intake & Output 02/03/20 02/04/20 02/05/20 02/06/20 11:59 11:59 11:59 11:59 Intake Total 3005 / 3005 2818 / 2818 Output Total 500 / 500 2300 / 2300 Balance 2505 / 2505 518 / 518 Weight 160 lb 198 lb 7 oz 198 lb 7.009 oz Microbiology Reports for the Last 24 Hours: Microbiology 02/04/20 09:35 Throat Group A Streptococcus Screen (DAYANA) - Final Negative for Group A Streptococcus. 02/04/20 09:54 Blood Blood Culture - Final Klebsiella pneumoniae 02/04/20 09:55 Urine,Catheterized Urine Culture - Final Klebsiella pneumoniae - Constitutional no acute distress, chronically ill appearing - *Routine HEENT Exam Head: Present: normocephalic Eye: Present: EOMI, PERRL ENT: Present: mucous membranes dry - *Routine Neck Exam Absent: JVD - *Routine Respiratory Exam Present: CTA bilaterally - *Routine Cardiovascular Exam Present: RRR, murmur - *Routine Abdominal Exam Present: soft - *Routine Extremities Exam Absent: calf tenderness - *Routine Skin Exam Present: intact - *Routine Neurological Exam Present: alert, CN II-XII intact - Routine Psychiatric Exam Present: cooperative Assessment and Plan (1) Sepsis due to Klebsiella pneumoniae Current visit: Yes Status: Acute Category: Medical Code(s): A41.4 - Sepsis due to anaerobes (2) UTI due to Klebsiella species Current visit: Yes Status: Acute Category: Medical Code(s): N39.0 - Urinary tract infection, site not specified; B96.89 - Other specified bacterial agents as the cause of diseases classified elsewhere (3) Anemia Current visit: No Status: Acute Qualifiers: Anemia type: unspecified type Qualified Code(s): D64.9 - Anemia, unspecified Category: Medical Code(s): D64.9 - Anemia, unspecified
[2020-02-06 11:07] LABS: POC Glucose,Bedside 204 (70-110)
[2020-02-06 16:31] LABS: POC Glucose,Bedside 231 (70-110)
--- NOTE | 2020-02-06 18:39 | PC.NURSE ---
NO ACUTE CHANGES THIS SHIFT. BLOOD TRANSFUSION COMPLETED AT 1835. POST H/H DUE AT 1935. PT PULLED OUT IV IN RIGHT AC/FA THIS SHIFT. NEW IV ACCESS GAINED 20 RAC. PT SLEPT MOST OF SHIFT. VSS. NO DISTRESS NOTED. NO BM. SAFETY MEASURES IN PLACE, WILL CONTINUE TO MONITOR
[2020-02-06 19:50] LABS: POC Glucose,Bedside 138 (70-110)
[2020-02-06 19:55] LABS: Hematocrit 29.8 % (42.0-52.0); Hemoglobin 9.5 g/dL (14.1-18.0)
[2020-02-07 03:28] VITALS: BP 164/99; PULSE 110; RESP 20; TEMP 36.8; O2SAT 97
[2020-02-07 05:00] VITALS: BMI 30.4
[2020-02-07 05:54] LABS: POC Glucose,Bedside 155 (70-110)
[2020-02-07 06:01] LABS: Basophils # 0.1 K/mm3 (0-0.2); Basophils % 0.7 % (0.1-2.0); Eosinophils # 0.4 K/mm3 (0.0-0.4); Eosinophils % 3.6 % (0.1-12.0); Hemoglobin 9.3 g/dL (14.1-18.0); Lymphocytes # 0.8 K/mm3 (0.7-4.5); Lymphocytes % 7.5 % (10-50); Mean Corpuscular Hemoglobin 31.3 pg (27.0-31.2); Mean Platelet Volume 7.9 fl (7.4-10.4); Monocytes # 0.8 K/mm3 (0.1-1.0); Monocytes % 7.3 % (1.7-9.3); Neutrophils # 8.6 K/mm3 (1.8-7.8); Platelet Count 371 K/mm3 (142-424); Red Blood Count 2.95 M/mm3 (4.60-6.20); Red Cell Distribution Width 15.9 % (11.5-17.5); White Blood Count 10.6 K/mm3 (4.8-10.8)
[2020-02-07 06:11] LABS: Chloride 112 mmol/L (98-107); Sodium 138 mmol/L (136-145)
[2020-02-07 06:14] LABS: Blood Urea Nitrogen 42 mg/dl (9-20); Creatinine Clearance Estimated 52 mL/min (50-200); Estimated Glomerular Filt Rate 42 ml/min (>60); GFR (African American) 51 ML/MIN (>60)
[2020-02-07 06:15] LABS: Calcium 8.6 mg/dl (8.4-10.2); Carbon Dioxide 18 mmol/L (22.0-30.0)
[2020-02-07 06:18] LABS: Glucose 152 mg/dl (74-100)
[2020-02-07 08:00] VITALS: BP 152/94; PULSE 110; RESP 20; TEMP 36.8; O2SAT 97
[2020-02-07 08:16] LABS: Covid-19 Nasal PCR Sendout Lex NOT DETECTED
--- NOTE | 2020-02-07 08:37 | SW/DCPLANNER ---
Addendum entered by Alma Putnam 02/07/20 10:31: I have informed Kaya with [facility] that this patients COVID 19 results are NEGATIVE. Original Note: This patient currently resides at [facility]. I have spoke with Kaya from [facility] and she has stated that this patient is currently [facility] level of care and they will accept him back once medically stable for discharge. I will fax updated information. Discharge date is unknown at this time.
--- NOTE | 2020-02-07 08:54 | HMH.ACPN2 ---
Internal Medicine - PN: Subj *Date: 02/07/20 *Time: 08:54 Interval history: today pt states he feels better Exam Vital signs and Labs for Last 24 Hours: Temp Pulse Resp BP Pulse Ox 98.3 F 110 H 20 152/94 H 97 02/07/20 08:00 02/07/20 08:00 02/07/20 08:00 02/07/20 08:00 02/07/20 08:00 Laboratory Results - last 24 hr 02/05/20 17:50: COVID-19 (MESFIN) Not detected 02/06/20 06:45: Blood Type O Negative, Antibody Screen Negative, Crossmatch (AHG) See Detail 02/06/20 10:59: POC Glucose 204 H 02/06/20 16:25: POC Glucose 231 H 02/06/20 19:40: Hgb 9.5 L D, Hct 29.8 L 02/06/20 19:41: POC Glucose 138 H 02/07/20 05:45: WBC 10.6, RBC 2.95 L D, Hgb 9.3 L, Hct 29.0 L, MCV 98.0 H, MCH 31.3 H, MCHC 32.0, RDW 15.9, Plt Count 371, MPV 7.9, Neut % (Auto) 81.0 H, Lymph % (Auto) 7.5 L, [place] % (Auto) 7.3, Eos % (Auto) 3.6, Baso % (Auto) 0.7, Neut # (Auto) 8.6 H, Lymph # (Auto) 0.8, [place] # (Auto) 0.8, Eos # (Auto) 0.4, Baso # (Auto) 0.1 02/07/20 05:45: Sodium 138, Potassium 4.0, Chloride 112 H, Carbon Dioxide 18 L, Anion Gap 12.0, BUN 42 H D, Creatinine 1.60 H, Estimated Creat Clear 52, Estimated GFR 42 L, Est GFR ( Amer) 51 L D, Glucose 152 H D, Calcium 8.6 02/07/20 05:47: POC Glucose 155 H I & O for Last 24 hours: Intake & Output 02/04/20 02/05/20 02/06/20 02/07/20 11:59 11:59 11:59 11:59 Intake Total 3005 / 3005 3068 / 3068 2066 / 2066 Output Total 500 / 500 2300 / 2300 1999 / 1999 Balance 2505 / 2505 768 / 768 66 / 66 Weight 160 lb 198 lb 7 oz 198 lb 7.009 oz 201 lb 3 oz Microbiology Reports for the Last 24 Hours: Microbiology 02/04/20 09:54 Blood Blood Culture - Preliminary NO GROWTH AFTER 48 HOURS 02/04/20 09:35 Throat Group A Streptococcus Screen (DAYANA) - Final Negative for Group A Streptococcus. 02/04/20 09:54 Blood Blood Culture - Final Klebsiella pneumoniae 02/04/20 09:55 Urine,Catheterized Urine Culture - Final Klebsiella pneumoniae - Constitutional no acute distress, morbidly obese, chronically ill appearing - *Routine HEENT Exam Head: Present: normocephalic Eye: Present: PERRL ENT: Present: mucous membranes moist - *Routine Neck Exam Present: supple. Absent: lymphadenopathy - *Routine Respiratory Exam Present: CTA bilaterally - *Routine Cardiovascular Exam Present: murmur, irregular rhythm - *Routine Abdominal Exam Present: soft, normoactive bowel sounds, obese. Absent: tenderness - *Routine Extremities Exam Present: normal capillary refill. Absent: cyanosis, clubbing, edema - *Routine Skin Exam Present: warm, wounds. Absent: rash Comments: scattered scabs on ext and face - *Routine Neurological Exam Present: alert, oriented X3 - Routine Psychiatric Exam Present: normal affect Assessment and Plan (1) Sepsis due to Klebsiella pneumoniae Current visit: Yes Status: Acute Category: Medical Code(s): A41.4 - Sepsis due to anaerobes (2) UTI due to Klebsiella species Current visit: Yes Status: Acute Category: Medical Code(s): N39.0 - Urinary tract infection, site not specified; B96.89 - Other specified bacterial agents as the cause of diseases classified elsewhere (3) Anemia Current visit: No Status: Acute Qualifiers: Anemia type: unspecified type Qualified Code(s): D64.9 - Anemia, unspecified Category: Medical Code(s): D64.9 - Anemia, unspecified (4) Urinary tract infection due to ESBL Klebsiella Current visit: Yes Status: Acute Category: Medical Code(s): N39.0 - Urinary tract infection, site not specified; B96.89 - Other specified bacterial agents as the cause of diseases classified elsewhere (5) BRITTNI (acute kidney injury) Current visit: No Status: Acute Category: Medical Code(s): N17.9 - Acute kidney failure, unspecified (6) CHF (congestive heart failure) Current visit: No Status: Ac
--- NOTE | 2020-02-07 09:36 | INFXCTL.NOTE ---
Pt negative for COVID-19, removed airborne precautions. Patient will remain in contact precautions due to cephalosporin resistant klebsiella found in his urine and blood and its multi-drug resistant nature. Charge nurse notified, will educate staff.
--- NOTE | 2020-02-07 10:23 | PC.NURSE ---
notified Dr. Vazquez of negative COVID 19 results.
--- NOTE | 2020-02-07 10:53 | HMH.OTEV ---
OT Inpatient Evaluation Rehab OT IP Evaluation Start: 02/07/20 08:43 Freq: ONCE Status: Complete Protocol: [facility]Rec: 02/07/20 10:53 [facility] [id number]) Rehab OT IP Assessment Subjective History Pt oriented x 3 upon arrival. Pt agreeable to engage in therapy evaluation. Pt was admitted via ED on 02/04/20 due to conitinued sickness. Pt has a past medical history of A-fib, COPD, A-fib, CHF, HTN, Hyperlipidemia, and IA. Prior to being hospitalized pt lived at [facility]. Pt claims he has required assistance with ADL's for 6+ months (dressing and bathing). Pt also reports he no longer walks and usually stays in his wheelchair. Pt is dependent upon staff to complete all IADL's. Subjective I can't do much. Objective Patient Orientation Person,Place,Birthday Upper Extremity Gross ROM WFL Chair Transfer Ability Total/Dependent (100%) Rehab OT IP prob,goals,plan Problems Date of Evaluation: 02/07/20 Rehab Potential Rehab Potential Innapropriate for Skilled Therapy Discharge Plan OT Discharge Plan Pt appears to be at his functional baseline at this time. Pt is safe to return back to SNF once he is medically stable and discharged by doctor. Eval Complexity Eval Charge Codes 27251 - Low Complexity G Codes G -code Required No PHYSICIAN CERTIFICATION: I certify the specified therapy services for Carlo Solano are required, authorized, and reviewed every 30 days.
[2020-02-07 11:12] LABS: POC Glucose,Bedside 206 (70-110)
[2020-02-07 13:16] VITALS: BMI 30.4
[2020-02-07 16:00] VITALS: BP 141/88; PULSE 91; RESP 20; TEMP 36.4; O2SAT 99
[2020-02-07 16:05] LABS: POC Glucose,Bedside 223 (70-110)
--- NOTE | 2020-02-07 18:06 | PC.NURSE ---
Pt is alert and oriented to person, place and situation. RR even and unlabored. Has been up to chair this shift. NAD. CB in reach. Resting in bed at this time. NAD. VSS. IVF's infusing as ordered per mar. Yanez on BLE. Kurtz cath in place and draining yellow urine. Continues on contact precautions r/t positive blood and urine cx's.
--- NOTE | 2020-02-07 18:34 | PC.NURSE ---
Did also make Dr. Franks office ([place]) aware this am at 1055 that pt did cough up a blood clot approx sz of quarter. NNO given.
[2020-02-07 19:53] VITALS: BP 171/84; PULSE 95; RESP 20; TEMP 36.6; O2SAT 99
[2020-02-08 01:33] LABS: POC Glucose,Bedside 187 (70-110)
[2020-02-08 04:50] VITALS: BP 145/88; PULSE 98; RESP 16; TEMP 36.6; O2SAT 99; BMI 32.3
--- NOTE | 2020-02-08 05:15 | PC.NURSE ---
A&OX4, THOUGH PT SENSE OF TIME COMES AND GOES AT TIMES. PT HAS REMIANED IN BED T/O THIS SHIFT, TOLERATING RA WELL. PT TOTAL CARE, HAS BEEN TURNED T/O SHIFT. PT HAS HAD NO C/O PAIN OR NA/VO THIS SHIFT. F/C PRESENT, DRAINING YELLOW URINE. NO COMPLAINTS THUS FAR, PT RESTING WELL IN BED. BED SAFETY APPLIED WHILE PT IS ASLEEP. PT IN CONTACT PRECAUTIONS, ALL STAFF IN APPROPRIATE PPE. VSS WILL CONTINUE TO MONITOR.
[2020-02-08 06:19] LABS: POC Glucose,Bedside 166 (70-110)
[2020-02-08 06:41] LABS: Basophils # 0.1 K/mm3 (0-0.2); Basophils % 0.6 % (0.1-2.0); Eosinophils # 0.3 K/mm3 (0.0-0.4); Eosinophils % 3.1 % (0.1-12.0); Hematocrit 27.6 % (42.0-52.0); Hemoglobin 8.5 g/dL (14.1-18.0); Lymphocytes # 0.7 K/mm3 (0.7-4.5); Lymphocytes % 7.4 % (10-50); Mean Corpuscular HGB Conc 30.9 g/dL (31.8-35.4); Mean Corpuscular Volume 100.2 fl (80-94); Mean Platelet Volume 9.5 fl (7.4-10.4); Monocytes # 0.6 K/mm3 (0.1-1.0); Monocytes % 6.7 % (1.7-9.3); Neutrophils # 7.6 K/mm3 (1.8-7.8); Neutrophils % 82.2 % (37.0-80.0); Platelet Count 348 K/mm3 (142-424); Red Blood Count 2.75 M/mm3 (4.60-6.20); Red Cell Distribution Width 15.8 % (11.5-17.5); White Blood Count 9.3 K/mm3 (4.8-10.8)
[2020-02-08 06:55] LABS: Chloride 113 mmol/L (98-107); Sodium 138 mmol/L (136-145)
[2020-02-08 06:56] LABS: Potassium 4.1 mmoL/L (3.5-5.1)
[2020-02-08 06:58] LABS: Blood Urea Nitrogen 32 mg/dl (9-20); Creatinine Clearance Estimated 63 mL/min (50-200); Estimated Glomerular Filt Rate 50 ml/min (>60); GFR (African American) 60 ML/MIN (>60)
[2020-02-08 06:59] LABS: Anion Gap 10.1 mEq/L (5-15); Calcium 8.1 mg/dl (8.4-10.2); Carbon Dioxide 19 mmol/L (22.0-30.0); Glucose 163 mg/dl (74-100)
[2020-02-08 07:41] VITALS: BP 133/74; PULSE 97; RESP 22; TEMP 36.8; O2SAT 99
--- NOTE | 2020-02-08 08:22 | HMH.DCSUM ---
General - General Admission date:: 02/04/20 Discharge date: 02/08/20 HPI HPI: 75-year-old male patient sitting up in bed tolerating breakfast without difficulty. He does report he is feeling better, discussed discharge back to [place] he is in agreement with this. this pt from [facility] with reported low bp - pt was seen in the ed -75-year-old gentleman presents from the custodial with generalized fatigue malaise chills mild cough and shortness of breath x5 weeks. Patient was seen here on 01/01/2020 diagnosed with influenza and subsequently treated however patient did tell me that he just really has not improved since he was diagnosed with influenza. He is extremely lethargic and looks acutely ill. His rectal temperature here is 98.1 and there has been no documented fevers at the custodial as well. Patient's vital signs are stable and his O2 saturations are 98% on room air. Patient also states that he has had a very poor appetite to for the last 3 to 4 weeks as well. Patient denies any nausea or vomiting. Patient also denies any diarrhea. Patient denies any chest pain or sore throat. Patient did state that it is difficult to relieve his bladder. And he also has some dysuria. That has been going on for the last 3 to 4 days. pt was admitted with uti and julio - Hospital Course Hospital Course: this pt from [facility] with reported low bp - pt was seen in the ed -75-year-old gentleman presents from the custodial with generalized fatigue malaise chills mild cough and shortness of breath x5 weeks. Patient was seen here on 01/01/2020 diagnosed with influenza and subsequently treated however patient did tell me that he just really has not improved since he was diagnosed with influenza. He is extremely lethargic and looks acutely ill. His rectal temperature here is 98.1 and there has been no documented fevers at the custodial as well. Patient's vital signs are stable and his O2 saturations are 98% on room air. Patient also states that he has had a very poor appetite to for the last 3 to 4 weeks as well. Patient denies any nausea or vomiting. Patient also denies any diarrhea. Patient denies any chest pain or sore throat. Patient did state that it is difficult to relieve his bladder. And he also has some dysuria. That has been going on for the last 3 to 4 days. pt was admitted with uti and julio - (Per Dr. Barlow) CXR 02/04/20: IMPRESSION: Cardiomegaly otherwise negative Dictated by: Dr. Daniels, Chest CT 02/04/20: IMPRESSION: 1. Mild atelectatic or fibrotic changes in the left upper and left lower lobe 2. Cardiomegaly. 3. 4 mm left lower lobe nodule. Consider 12 month follow-up 4. Possible cholelithiasis or gallbladder sludge which may be better evaluated with ultrasound Dictated by: Dr. Daniels, Upon admission BUN 104, creatinine 3.1, GFR 20. Today 02/08/20: BUN 32, creatinine 1.4, GFR 50, after fluids. Urine culture and blood cultures x1, + for Klebsiella pneumonia, patient has received ertapenem IV while inpatient, will receive IM for 5 more days and will discharge back to [facility]. Patient has tested negative for COVID-19, flu A/B, and strep. H&H dropped to 7.7/24.8, he received 2 units PRBC's, post infusion 9.5/29.8. Due to bleeding difficulties patient will not be able to return to [place] on anticoagulation, has refused watchman's device placement in the past. Objective Vital signs: Temp Pulse Resp BP Pulse Ox 98.3 F 97 H 22 133/74 99 02/08/20 07:41 02/08/20 07:41 02/08/20 07:41 02/08/20 07:41 02/08/20 07:41 no acute distress - *Routine HEENT Exam Head: Present: normocephalic. Absent: tenderness of temporal artery Eye: Present: EOMI, PERRL. Absent: periorbital swelling ENT: Present: mucous membranes moist. Absent: sinus tenderness - *Routine Neck Exam Present: full ROM, trachea midline. Absent: JVD, tracheal deviation - *Routine Respiratory Exam Present: wheezes. Absent:
--- NOTE | 2020-02-08 08:33 | SW/DCPLANNER ---
This patient will discharge back to [facility] today. Patient will need five additional days of IM Invanz after today. I have notified Kaya at [facility] and she is aware and concurs with plan. Patient will discharge today.
[2020-02-08 12:20] LABS: POC Glucose,Bedside 215 (70-110)
== END 2020-02-08 12:39 | DRG 871 ==
LOC: ER 13:43 → ICU 13:51 → 2ND 02-07 08:46
PROVIDERS: Internal Medicine Adolescent Medicine; Nurse Practitioner Family; Admitting Provider Emergency Medicine; Emergency Provider Family Medicine; PCP Emergency Medicine; Visit Provider Emergency Medicine
DX: A41.89 Other specified sepsis (principal); I50.43 Acute on chronic combined systolic (congestive) and diastolic (congestive) heart failure; N39.0 Urinary tract infection, site not specified; N17.9 Acute kidney failure, unspecified; I48.20 Chronic atrial fibrillation, unspecified; I13.0 Hypertensive heart and chronic kidney disease with heart failure and stage 1 through stage 4 chronic kidney disease, or unspecified chronic kidney disease; R65.20 Severe sepsis without septic shock; Z03.818 Encounter for observation for suspected exposure to other biological agents ruled out; B96.1 Klebsiella pneumoniae [K. pneumoniae] as the cause of diseases classified elsewhere; D64.9 Anemia, unspecified; J41.8 Mixed simple and mucopurulent chronic bronchitis; I35.0 Nonrheumatic aortic (valve) stenosis; Z79.01 Long term (current) use of anticoagulants; Z95.5 Presence of coronary angioplasty implant and graft; I25.10 Atherosclerotic heart disease of native coronary artery without angina pectoris; E11.22 Type 2 diabetes mellitus with diabetic chronic kidney disease; N18.9 Chronic kidney disease, unspecified; Z79.4 Long term (current) use of insulin; E11.51 Type 2 diabetes mellitus with diabetic peripheral angiopathy without gangrene
CPT/HCPCS: 36415; 71045; 71250; 80048; 80053; 81001; 82962; 83605; 85014; 85018; 85025; 85651; 86140; 86850; 87040; 87077; 87086; 87088; 87186; 87275; 87276; 87430; 96365; 96367; 97161; 97165; 99285; J1335; P9016; U0003

== ENCOUNTER → 2020-03-29 09:59 | Outpatient (CLI) | payer MEDICARE, SELFPAY ==
--- NOTE | 2020-03-29 10:24 | ECG_ITS ---
APPROVED REPORT Exam: Resting ECG HR:97 bpm ECG Measurements Heart Rate 97 AXES QRSd 112 QRS -51 QT 364 T 92 QTc 462 <Conclusion> Atrial fibrillation Left axis deviation Incomplete left bundle branch block Nonspecific ST and T wave abnormality, probably digitalis effect Prolonged QT Abnormal ECG Electronically signed by : Zana Kaplan, 03/29/2020 17:32:07
[2020-03-29 10:25] LABS: Basophils % 0.4 % (0.1-2.0); Eosinophils # 0.2 K/mm3 (0.0-0.4); Eosinophils % 2.4 % (0.1-12.0); Hematocrit 34.8 % (42.0-52.0); Hemoglobin 11.4 g/dL (14.1-18.0); Lymphocytes # 1.1 K/mm3 (0.7-4.5); Lymphocytes % 12.1 % (10-50); Mean Corpuscular HGB Conc 32.7 g/dL (31.8-35.4); Mean Corpuscular Hemoglobin 32.2 pg (27.0-31.2); Mean Corpuscular Volume 98.5 fl (80-94); Mean Platelet Volume 7.6 fl (7.4-10.4); Monocytes # 0.7 K/mm3 (0.1-1.0); Monocytes % 7.9 % (1.7-9.3); Neutrophils % 77.2 % (37.0-80.0); Platelet Count 276 K/mm3 (142-424); Red Blood Count 3.53 M/mm3 (4.60-6.20); Red Cell Distribution Width 15.1 % (11.5-17.5); White Blood Count 9.1 K/mm3 (4.8-10.8)
[2020-03-29 11:33] LABS: Anion Gap 18.9 mEq/L (5-15); Blood Urea Nitrogen 63 mg/dl (9-20); Calcium 9.6 mg/dl (8.4-10.2); Carbon Dioxide 22 mmol/L (22.0-30.0); Chloride 100 mmol/L (98-107); Estimated Glomerular Filt Rate 37 ml/min (>60); GFR (African American) 45 ML/MIN (>60); Glucose 181 mg/dl (74-100); Potassium 4.9 mmoL/L (3.5-5.1); Sodium 136 mmol/L (136-145)
[2020-03-29 13:13] LABS: Coronavirus 19 IgG Antibody Negative (Negative); Coronavirus 19 IgM Antibody Negative (Negative)
== END ==
PROVIDERS: Visit Provider Otolaryngology
DX: Z01.818 Encounter for other preprocedural examination (principal); D49.89 Neoplasm of unspecified behavior of other specified sites
CPT/HCPCS: 36415; 80048; 85025; 86328; 93005

== ENCOUNTER 2020-03-30 06:22 | Day surgery (SDC) | payer MEDICARE, SELFPAY ==
[2020-03-30 06:41] VITALS: BP 154/102; PULSE 98; RESP 20; TEMP 36.3; O2SAT 100; BMI 33.4
[2020-03-30 07:48] LABS: POC Glucose,Bedside 181 (70-110)
--- NOTE | 2020-03-30 08:12 | P.PN_ITS ---
[facility] Anesthesia Checklist - Structural Data Admitted From: Long-term Nursing [facility] Planned Operative Procedure/s: excision neoplasm r arm Consent for Planned Operative Procedure(s) Verified: Yes - Additional verifications Anesthesia Reactions: No Hx Blood Transfusions: No Blood Transfusion Reaction: No - Airway Assessment C-Spine Mobility Assessed: Yes TMJ Mobility Assessed: Yes Dentition: Poor Dentition - Neurological Assessment Level of Consciousness: Awake, Alert, Appropriate - Anesthesia Plan Anesthesia Risk discussed: Yes Anesthesia Plan: Verified ASA Class: III Anesthesia Type: MAC [facility] History I have reviewed the patient's past medical history: Yes Medical History: Reports:: Arrhythmia, Atrial Fibrillation, Cardiomyopathy, Congestive Heart Failure, Chronic Obstructive Pulmonary Disease (COPD), Coronary Artery Disease, Diabetes Mellitus Type 2, Hyperlipidemia, Hypertension, Myocardial Infarction, Peripheral Vascular Disease, Renal Disease, Seizures (pt reports a seizure 1 year ago) Denies:: Cancer, Diabetes Mellitus Type 1, Internal Pacemaker, Lung Disease, MRSA *Have you ever received a pneumonia vaccine?: No *Have you received a flu vaccine this season?: Yes Other Medical History: Reports: Anemia, Hypothyroidism. Denies: Blood Transfusion Reaction Anesthesia experience/problems:: none Laterality Cases: Left: Total Hip Replacement, Other, Bilateral: Cataract, Tonsillectomy Other Surgeries: Yes: Cardiac Catheterization, Colonoscopy, Coronary Stent, Other. No: Pacemaker Amputation: No Fractures: Yes - *Social History Educational Level: Attended College Smoking Status: Former smoker Tobacco Type: cigarettes # Packs/Day (cigarettes): 2 #Yrs smoked (if former smoker): 40 Smoking End Date: 03/30/2015 Alcohol Intake: former Alcohol Intake Frequency:: holidays/special occasions only Substance Use Type: denies use *Occupational Status:: retired Housing: assisted living facility Household Members: other *Travel in the last 8 weeks: None Family Hx:: No significant family history
[2020-03-30 08:41] VITALS: BP 180/98; PULSE 87; RESP 18; TEMP 36.6; O2SAT 100
[2020-03-30 08:51] VITALS: BP 157/97; PULSE 102; RESP 18; O2SAT 99
[2020-03-30 09:01] VITALS: BP 159/99; PULSE 94; RESP 18; O2SAT 100
[2020-03-30 09:20] VITALS: BP 177/86; PULSE 88; RESP 18; O2SAT 100
--- NOTE | 2020-03-30 09:36 | SUR.PHASEII ---
Report called to Elke at [facility]. Reported to nurse there is no changes or additions to [facility] med list, to continue as before. Discharge instructions reviewed, including dressing and wound care, and copy provided, follow up- all sent with pt. Nurse verbalized understanding of all info given.
--- NOTE | 2020-03-30 15:12 | HMH.OPNOTE ---
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 The lesion was grasped with forceps and using the harmonic scalpel the lesion was excised in entirety and submitted. Bleeding was less than 5 cc and stopped with cautery. Surgicel snow was placed in the defect and the defect was repaired with interrupted vicryl sutures. A Dermabond dressing as well as an occlusive dressing was applied and the patient was sent to recovery in good general condition. Condition: stable Disposition: PACU Complications:: none
== END 2020-03-30 09:21 | disposition home or self-care (01) ==
LOC: OR 06:23
PROVIDERS: PCP Emergency Medicine; Visit Provider Otolaryngology
PROC: (CPT 11606; principal; 2020-03-30 08:30)
DX: I11.0 Hypertensive heart disease with heart failure (principal); C44.692 Other specified malignant neoplasm of skin of right upper limb, including shoulder; E11.9 Type 2 diabetes mellitus without complications; I73.9 Peripheral vascular disease, unspecified; D64.9 Anemia, unspecified; E78.00 Pure hypercholesterolemia, unspecified; I48.91 Unspecified atrial fibrillation; J44.9 Chronic obstructive pulmonary disease, unspecified; E66.9 Obesity, unspecified; Z79.82 Long term (current) use of aspirin; Z79.4 Long term (current) use of insulin; Z79.899 Other long term (current) drug therapy
CPT/HCPCS: 11606; 12031; 82962; 88305; 88311; 88342; 96374

== ENCOUNTER 2020-05-17 21:55 | Observation (INO) | payer MEDICARE, SELFPAY ==
[2020-05-17 21:56] VITALS: BP 97/59; PULSE 82; RESP 16; TEMP 37.2; O2SAT 97; BMI 37.2
--- NOTE | 2020-05-17 22:08 | PC.NURSE ---
Pt sent to ER by Dr Razo for UTI, pt can answer sinple questions, but unable to answer complex, information from [facility] report and medical records
[2020-05-17 22:41] LABS: Chloride 103 mmol/L (98-107); Potassium 5.6 mmoL/L (3.5-5.1); Sodium 134 mmol/L (136-145)
[2020-05-17 22:44] LABS: Alanine Aminotransferase 21 U/L (12-78); Albumin Level 3.5 g/dl (3.5-5.0); Albumin/Globulin Ratio 0.9 (1.1-1.8); Alkaline Phosphatase 168 U/L (38-126); Anion Gap 21.6 mEq/L (5-15); Aspartate Amino Transferase 20 U/L (17-59); Bilirubin,Total 0.4 mg/dl (0.2-1.3); Calcium 9.1 mg/dl (8.4-10.2); Carbon Dioxide 15 mmol/L (22.0-30.0); Creatinine Clearance Estimated 25 mL/min (50-200); Estimated Glomerular Filt Rate 15 ml/min (>60); GFR (African American) 18 ML/MIN (>60); Globulin 3.8 g/dL (1.3-3.2); Glucose 124 mg/dl (74-100); Total Protein,Serum 7.3 g/dl (6.3-8.2)
[2020-05-17 22:48] LABS: Basophils % 0.3 % (0.1-2.0); Blood Urea Nitrogen 103 mg/dl (9-20); Eosinophils # 0.1 K/mm3 (0.0-0.4); Eosinophils % 1.5 % (0.1-12.0); Hematocrit 35.8 % (42.0-52.0); Hemoglobin 11.9 g/dL (14.1-18.0); Lymphocytes % 10.2 % (10-50); Mean Corpuscular HGB Conc 33.3 g/dL (31.8-35.4); Mean Corpuscular Hemoglobin 32.1 pg (27.0-31.2); Mean Corpuscular Volume 96.4 fl (80-94); Monocytes # 0.7 K/mm3 (0.1-1.0); Monocytes % 7.5 % (1.7-9.3); Neutrophils # 7.9 K/mm3 (1.8-7.8); Neutrophils % 80.6 % (37.0-80.0); Platelet Count 250 K/mm3 (142-424); Red Blood Count 3.71 M/mm3 (4.60-6.20); Red Cell Distribution Width 15.3 % (11.5-17.5); White Blood Count 9.8 K/mm3 (4.8-10.8)
[2020-05-17 22:49] LABS: Lactic Acid 2.1 mmol/L (0.7-2.1)
[2020-05-17 23:23] VITALS: BP 113/60; PULSE 61; RESP 18; O2SAT 100
--- NOTE | 2020-05-17 23:32 | HMH.EDUROGM ---
ED Disposition Clinical Impression: Acute kidney injury, UTI (urinary tract infection), Dehydration Disposition: Admitted as Observation Condition on Discharge: Good Instructions: DI for Urinary Tract Infection (UTI), DI for Urinary Tract Infection in Children Referrals: Dave Vazquez MD [Primary Care Provider] - - Critical Care Critical Care Time: No Attestation: On 05/17/20, the high probability of a clinically significant, sudden or life threatening deterioration of the following system(s) required my full and direct attention, intervention and personal management. The time I documented below is in addition to time spent performing reported procedures but includes the following listed in this critical care notation. Medical Decision Making - Medical Records Medical records reviewed: Yes: I reviewed the patient's medical records. - Yogesh Inquiry Pt receiving controlled substance: No Vital Signs: 05/17/20 21:56 05/17/20 23:23 Temperature 99.0 F Temperature Source Oral Pulse Rate [Left] 82 61 Respiratory Rate 16 18 Blood Pressure [Right Arm] 97/59 L 113/60 Blood Pressure Mean [Right Arm] 71 77 Blood Pressure Source [Right Arm] Automatic Cuff Blood Pressure Position [Right Arm] Supine 02 Sat by Pulse Oximetry 97 100 Oxygen Delivery Method Room Air Room Air - Lab Data Lab results reviewed: Yes: I reviewed the patient's lab results. Lab Results 05/17/20 22:23: Lactate 2.1 05/17/20 22:26: WBC 9.8, RBC 3.71 L, Hgb 11.9 L, Hct 35.8 L, MCV 96.4 H, MCH 32.1 H, MCHC 33.3, RDW 15.3, Plt Count 250, MPV 8.0, Neut % (Auto) 80.6 H, Lymph % (Auto) 10.2, [place] % (Auto) 7.5, Eos % (Auto) 1.5, Baso % (Auto) 0.3, Neut # (Auto) 7.9 H, Lymph # (Auto) 1.0, [place] # (Auto) 0.7, Eos # (Auto) 0.1, Baso # (Auto) 0.0 05/17/20 22:26: Sodium 134 L, Potassium 5.6 H, Chloride 103, Carbon Dioxide 15 L, Anion Gap 21.6 H, BUN 103 H*, Creatinine 4.00 H, Estimated Creat Clear 25, Estimated GFR 15 L*, Est GFR ( Amer) 18 L*, Glucose 124 H, Calcium 9.1, Total Bilirubin 0.4, AST 20, ALT 21, Alkaline Phosphatase 168 H, Total Protein 7.3, Albumin 3.5, Globulin 3.8 H, Albumin/Globulin Ratio 0.9 L Result diagrams: 05/17/20 22:26 05/17/20 22:26 Orders (Tests/Meds): ED MEDICATIONS Generic Name Dose Route Start Last Admin Trade Name Eleanor PRN Reason Stop Dose Admin Sodium Chloride 1,000 mls @ 999 mls/hr 05/17/20 22:30 05/17/20 22:29 Sod Chlor 0.9% 1000ml Bag IV 05/17/20 23:30 999 mls/hr .Q1H1M CINDY Administration ORDERS Category Date Time Status Blood Culture Stat Micro 05/17/20 22:26 Received Medical Decision Narrative: I spoke to Dr. salgado on the phone he agreed admit to admit the patient start the patient on IV antibiotics and also fluid hydration. Male Urogenital HPI - General Chief complaint: Urogenital-Male Stated complaint: uti Time Seen by Provider: 05/17/20 23:32 Mode of Arrival: EMS Source of Information: Patient Limitations: No Limitations Description of Symptoms (Recalled from ER Triage Doc. by RN): Pt sent here by Dr Razo for UTI from [facility] - History of Present Illness HPI Narrative: 75-year-old gentleman presents to the emergency room from the residential. He had a urine done a couple of days ago and did come back with a UTI and he also had a sensitivity report sent as well patient has a history of developing acute kidney injury secondary to UTIs and acute dehydration. Here in the ED his respiratory rate is normal heart rate is normal temperature is normal and does not meet any sirs criteria. Otherwise patient has no other complaints. Back in January he did have a similar episode and his creatinine did come back elevated at 3.9 and his BUN was 104 he was admitted to the hospital in January for UTI, sepsis and rule out for COVID.Patient denies any recent cough or shortness of breath, patient denies any sore throat or headache, patient denies any loss of taste or smell, patient
[2020-05-17 23:59] VITALS: BP 102/56; PULSE 70; RESP 17; TEMP 37.2; O2SAT 100
[2020-05-18] VITALS (8 sets, daily range): BP systolic 118–160; BP diastolic 68–86; PULSE 62–97; RESP 16–20; TEMP 36.6–36.8; O2SAT 97–100; BMI 30.1
--- NOTE | 2020-05-18 00:09 | PC.NURSE ---
patient up to floor via stretcher.
[2020-05-18 02:14] LABS: Reflex Lactic Add Lactic Reflex
[2020-05-18 02:44] LABS: Lactic Acid Follow Up (RFLX 1) 0.7 mmol/L (0.7-2.1)
--- NOTE | 2020-05-18 03:24 | PC.NURSE ---
A&OX4. PT HAS TOLERATED ROOM AIR WELL THROUGHOUT SHIFT. RESPIRATIONS REGULAR AND UNLABORED. LUNG SOUNDS BILATERALLY CLEAR. HEART RATE REGULAR. NO EDEMA NOTED. ACTIVE BOWEL SOUNDS HEARD IN ALL 4 QUADRANTS. SOFT AND NONTENDER ABDOMEN. PT VOIDS PER URINAL. NO BM THUS FAR. NO PAIN REPORTED THUS FAR. SCARS AND SCRATCHES SCATTERED THROUGHOUT BODY. STAGE 1 PRESSURE ULCER NOTED TO COCCYX. ALLYVN IN PLACE. BLANCHABLE REDNESS. REDNESS NOTED TO L HIP. R FOOT 2ND TOE REDNESS AND SCAB NOTED. L HAND RING FINGER AMPUTATION NOTED. PICTURES TAKEN OF COCCYX AREA AND TOE, BUT PRINTER DOESNT WORK. WILL PASS ALONG TO DAYSHIFT. HAND ALTERATIONS EXPERT EQUAL. +2 PULSES NOTED THROUGHOUT. BED ALARM ON TO PROMOTE SAFETY. SEIZURE PRECAUTIONS IN PLACE. NS INFUSING AT 150ML/HR. PT RECEIVED INVANZ THIS SHIFT AND TOLERATED WELL. PT TURNED Q 2 HOURS TO PREVENT SKIN BREAKDOWN. HEELS FLOATED THROUGHOUT SHIFT. PT CURRENTLY RESTING IN BED W CALL LIGHT WITHIN REACH. BED IN LOWEST POSITION. VSS. NO CONCERNS AT THIS TIME. WILL CONTINUE TO MONITOR.
[2020-05-18 06:33] LABS: Chloride 107 mmol/L (98-107); Potassium 5.4 mmoL/L (3.5-5.1); Sodium 135 mmol/L (136-145)
[2020-05-18 06:36] LABS: Alanine Aminotransferase 17 U/L (12-78); Albumin Level 3.2 g/dl (3.5-5.0); Albumin/Globulin Ratio 0.9 (1.1-1.8); Alkaline Phosphatase 149 U/L (38-126); Anion Gap 18.4 mEq/L (5-15); Aspartate Amino Transferase 22 U/L (17-59); Bilirubin,Total 0.4 mg/dl (0.2-1.3); Carbon Dioxide 15 mmol/L (22.0-30.0); Creatinine Clearance Estimated 21 mL/min (50-200); Estimated Glomerular Filt Rate 15 ml/min (>60); GFR (African American) 18 ML/MIN (>60); Globulin 3.6 g/dL (1.3-3.2); Total Protein,Serum 6.8 g/dl (6.3-8.2)
[2020-05-18 06:37] LABS: Calcium 8.6 mg/dl (8.4-10.2); Glucose 121 mg/dl (74-100)
[2020-05-18 06:44] LABS: Blood Urea Nitrogen 100 mg/dl (9-20)
[2020-05-18 06:56] LABS: POC Glucose,Bedside 149 (70-110)
--- NOTE | 2020-05-18 07:15 | HMH.PHAVTE ---
[facility] Pharmacy VTE Monitoring - Patient Demographics Admission date: 05/18/20 Report Date: 05/18/20 Time: 07:15 Allergies/Adverse Reactions: Patient Allergies No Known Allergies Allergy (Verified 05/18/20 01:49) Height: 1.73 m Weight: 90.265 kg Patient Problems: Current Active Problems (Last Updated 11/12/19 @ 13:29 by Cara Mendoza RN) BRITTNI (acute kidney injury) (Acute) Dehydration (Acute) UTI (urinary tract infection) (Acute) - VTE Risk Labs: VTE Related Lab Results Hgb 11.9 g/dL (14.1-18.0) L 05/17/20 22:26 Hct 35.8 % (42.0-52.0) L 05/17/20 22:26 Plt Count 250 K/mm3 (142-424) 05/17/20 22:26 BUN 100 mg/dl (9-20) H 05/18/20 06:09 Creatinine 3.90 mg/dl (0.66-1.25) H 05/18/20 06:09 Estimated Creat Clear 21 mL/min (50-200) 05/18/20 06:09 VTE Score: 7 Clinical Trial Participant: No - Prophylaxis VTE Prophylaxis Ordered?: Yes Types of VTE Prophylaxis: TEDS Knee High
[2020-05-18 07:25] LABS: Basophils % 0.2 % (0.1-2.0); Eosinophils # 0.1 K/mm3 (0.0-0.4); Eosinophils % 1.4 % (0.1-12.0); Hematocrit 34.4 % (42.0-52.0); Hemoglobin 11.5 g/dL (14.1-18.0); Lymphocytes # 1.1 K/mm3 (0.7-4.5); Lymphocytes % 11.2 % (10-50); Mean Corpuscular HGB Conc 33.5 g/dL (31.8-35.4); Mean Corpuscular Hemoglobin 32.4 pg (27.0-31.2); Mean Corpuscular Volume 96.7 fl (80-94); Mean Platelet Volume 8.4 fl (7.4-10.4); Monocytes # 0.8 K/mm3 (0.1-1.0); Monocytes % 7.8 % (1.7-9.3); Neutrophils # 7.7 K/mm3 (1.8-7.8); Neutrophils % 79.3 % (37.0-80.0); Platelet Count 224 K/mm3 (142-424); Red Blood Count 3.56 M/mm3 (4.60-6.20); White Blood Count 9.7 K/mm3 (4.8-10.8)
--- NOTE | 2020-05-18 07:58 | HMH.PHAINT ---
MEDICATION RECONCILIATION COMPLETED USING LIST FROM JAIL.
--- NOTE | 2020-05-18 08:28 | PC.NURSE ---
resulted urine from alf so was told to cancel urine culture here. also asked awais elias if she wanted diet switched to diabetic which she okayed and to start patient on medium intensity sliding scale. also discussed home meds with her and pharmacy. pharmacy to place what awais cantun wants reordered from home meds.
--- NOTE | 2020-05-18 09:19 | HMH.HP ---
*Admission Date: 05/18/20 *Chief complaint: uti *History of present illness: 75-year-old male presents to the emergency room from the [place] [facility]. [facility] a couple of [place] ago from [place] [facility]. Pt sent from [facility] due to decrease in mental status. Patient denies any recent cough or shortness of breath, patient denies any sore throat or headache, patient denies any loss of taste or smell, patient denies any malaise or fatigue, patient denies any abdominal pain nausea vomiting or diarrhea. Patient admitted for decrease renal function and UTI. [facility] History I have reviewed the patient's past medical history: Yes Medical History: Reports:: Arrhythmia, Atrial Fibrillation, Cardiomyopathy, Congestive Heart Failure, Chronic Obstructive Pulmonary Disease (COPD), Coronary Artery Disease, Diabetes Mellitus Type 2, Hyperlipidemia, Hypertension, Myocardial Infarction, Peripheral Vascular Disease, Renal Disease, Seizures (pt reports a seizure 1 year ago) Denies:: Cancer, Diabetes Mellitus Type 1, Internal Pacemaker, Lung Disease, MRSA *Have you ever received a pneumonia vaccine?: Yes *Have you received a flu vaccine this season?: Yes Other Medical History: Reports: Anemia, Hypothyroidism. Denies: Blood Transfusion Reaction Laterality Cases: Left: Total Hip Replacement, Other, Bilateral: Tonsillectomy Other Surgeries: Yes: Cardiac Catheterization, Colonoscopy, Coronary Stent, Skin Cancer Excision, Other. No: Pacemaker Amputation: No Fractures: Yes - *Social History Last grade of school completed: High school graduate Smoking Status: Former smoker Tobacco Type: cigarettes # Packs/Day (cigarettes): 2 #Yrs smoked (if former smoker): 40 Alcohol Intake: never Alcohol Intake Frequency:: holidays/special occasions only Substance Use Type: denies use *Occupational Status:: disabled Housing: [facility] Household Members: other *Travel in the last 8 weeks: None Family Hx:: Unable to obtain Review of Systems - Review of Systems Review of systems:: pertinent systems reviewed and negative unless documented below - Constitutional Denies body ache(s), Denies fatigue - Eyes Denies change in vision - ENT Denies change in voice - *Cardiovascular Denies chest pain with activity - *Respiratory Denies chest congestion - *Gastrointestinal Denies bloating - *Genitourinary Reports decreased urination, Reports urinary frequency, Denies genital pain - *Musculoskeletal Denies abnormal walking - Integumentary/Breasts Denies yellowing of the skin - *Neurologic Denies dizziness - Psychiatric Denies anxiety - Endocrine Denies flushing, Denies increased thirst - Hematologic/Lymphatic Denies enlarged lymph nodes - Allergic/Immunologic Denies itchy eyes Meds Home Medications Medication Instructions Recorded Confirmed Type ascorbic acid (vitamin C) 500 mg 500 mg PO DAILY tab 10/30/17 05/18/20 History tablet atorvastatin 40 mg tablet 40 mg PO HS 10/30/17 05/18/20 History ferrous sulfate 325 mg (65 mg 325 mg PO Q48H tab 10/30/17 05/18/20 History iron) tablet levothyroxine 50 mcg tablet 50 mcg PO DAILY tab 10/30/17 05/18/20 History Duloxetine HCl [Cymbalta 30mg 60 mg PO DAILY 04/12/18 05/18/20 History capsule] Docusate Sodium [Colace 250mg 250 mg PO BID 11/23/18 05/18/20 History capsule] Fluticasone Propionate [Flonase 1 spr NS DAILY 11/23/18 05/18/20 History 50mcg nasal spray 16gm] Isosorbide Mononitrate [Imdur 30mg 30 mg PO DAILY 11/23/18 05/18/20 History ER tablet] Cholecalciferol (Vitamin D3) 2,000 unit PO DAILY 06/08/19 05/18/20 History [Vitamin D3] Aspirin [Aspirin 81mg chewable 81 mg PO DAILY 07/12/19 05/18/20 History tab] Spironolactone [Aldactone 25mg 25 mg PO DAILY 07/12/19 05/18/20 History Tab] carvediloL [Coreg 25mg Tablet] 50 mg PO BID 07/12/19 05/18/20 History losartan 100 mg tablet 100 mg PO DAILY 07/16/19 05/18/20 History Trazodone HCl 100 mg PO HS 01/02/20 05/18/20 His
--- NOTE | 2020-05-18 09:47 | SW/DCPLANNER ---
Addendum entered by Alma Putnam 05/19/20 10:06: I have informed Kaya at [facility] that this patient will discharge back today. Original Note: This patient currently resides at [facility]. I have spoke with Kaya at [facility] and she has stated that this patient is currently ICF level of care. I will continue to follow up with Kaya once patient is medically stable for discharge.
--- NOTE | 2020-05-18 09:54 | HMH.ACPN ---
Internal Medicine - PN: Subj *Date: 05/18/20 *Time: 09:54 Exam Vital signs and Labs for Last 24 Hours: Temp Pulse Resp BP Pulse Ox 98.0 F 92 H 17 128/68 100 05/18/20 07:44 05/18/20 07:44 05/18/20 07:44 05/18/20 07:44 05/18/20 07:44 Laboratory Results - last 24 hr 05/17/20 22:23: Lactate 2.1 05/17/20 22:26: WBC 9.8, RBC 3.71 L, Hgb 11.9 L, Hct 35.8 L, MCV 96.4 H, MCH 32.1 H, MCHC 33.3, RDW 15.3, Plt Count 250, MPV 8.0, Neut % (Auto) 80.6 H, Lymph % (Auto) 10.2, [place] % (Auto) 7.5, Eos % (Auto) 1.5, Baso % (Auto) 0.3, Neut # (Auto) 7.9 H, Lymph # (Auto) 1.0, [place] # (Auto) 0.7, Eos # (Auto) 0.1, Baso # (Auto) 0.0 05/17/20 22:26: Sodium 134 L, Potassium 5.6 H, Chloride 103, Carbon Dioxide 15 L, Anion Gap 21.6 H, BUN 103 H*, Creatinine 4.00 H, Estimated Creat Clear 25, Estimated GFR 15 L*, Est GFR ( Amer) 18 L*, Glucose 124 H, Calcium 9.1, Total Bilirubin 0.4, AST 20, ALT 21, Alkaline Phosphatase 168 H, Total Protein 7.3, Albumin 3.5, Globulin 3.8 H, Albumin/Globulin Ratio 0.9 L 05/18/20 02:30: Lactate 0.7 05/18/20 06:09: WBC 9.7, RBC 3.56 L, Hgb 11.5 L, Hct 34.4 L, MCV 96.7 H, MCH 32.4 H, MCHC 33.5, RDW 15.0, Plt Count 224, MPV 8.4, Neut % (Auto) 79.3, Lymph % (Auto) 11.2, [place] % (Auto) 7.8, Eos % (Auto) 1.4, Baso % (Auto) 0.2, Neut # (Auto) 7.7, Lymph # (Auto) 1.1, [place] # (Auto) 0.8, Eos # (Auto) 0.1, Baso # (Auto) 0.0 05/18/20 06:09: Sodium 135 L, Potassium 5.4 H, Chloride 107, Carbon Dioxide 15 L, Anion Gap 18.4 H, BUN 100 H, Creatinine 3.90 H, Estimated Creat Clear 21, Estimated GFR 15 L*, Est GFR ( Amer) 18 L*, Glucose 121 H, Calcium 8.6, Total Bilirubin 0.4, AST 22, ALT 17, Alkaline Phosphatase 149 H, Total Protein 6.8, Albumin 3.2 L, Globulin 3.6 H, Albumin/Globulin Ratio 0.9 L 05/18/20 06:21: POC Glucose 149 H I & O for Last 24 hours: Intake & Output 05/15/20 05/16/20 05/17/20 05/18/20 23:59 23:59 23:59 23:59 Intake Total 1096 / 1096 Balance 1096 / 1096 Weight 111.13 kg 90.265 kg The patient's infection will respond to the chosen ABx?: Yes (CULTURE RESULTS IN CHART FROM INTERMEDIATE) Is the patient receiving the right drug, dose, and route?: Yes Could a more targeted ABx be ordered?: No
[2020-05-18 11:20] LABS: POC Glucose,Bedside 179 (70-110)
--- NOTE | 2020-05-18 15:26 | PC.NURSE ---
patient has done well this shift. turning has been encouraged and patient has been assisted with this. however patient still tends to turn back over on to his left side. he has mostly slept this shift; however this evening he has complaints of not doing anything , so requested to sit up in a wheelchair for a little bit. has been incontinent this shift. no complaints of shortness of breath. lungs remain clear. appetite has been fair but not great. has drank some juice this shift. vitals stable will continue to monitor.
[2020-05-18 17:31] LABS: POC Glucose,Bedside 165 (70-110)
--- NOTE | 2020-05-18 20:16 | PC.NURSE ---
patient noted to have 2 skin tears on r lower leg with some bleeding after transfer to chair. patient also slid to floor from wheelchair. patient was able to ring out and tell staff that he was sitting in the floor. patient had no complaints of pain, no signs of injury stable vitals. patient assisted back to bed, md risk reduction counselor notified, and primary notified on night rounds.
[2020-05-18 20:37] LABS: POC Glucose,Bedside 222 (70-110)
--- NOTE | 2020-05-19 03:50 | PC.NURSE ---
Pt has slept intermittently this shift. Has had several bouts of tearfulness, but cannot express why he is sad. Denies pain/soa. Conversation is effective in redirecting pt during these episodes. Pt has been oriented to person and only this shift. Pt has been repositioned q2h this shift.
[2020-05-19 04:00] VITALS: BP 165/97; PULSE 87; RESP 20; TEMP 36.6; O2SAT 99
[2020-05-19 05:00] VITALS: BMI 31.1
[2020-05-19 05:53] LABS: POC Glucose,Bedside 155 (70-110)
[2020-05-19 08:00] VITALS: BP 168/104; PULSE 91; RESP 17; TEMP 36.3; O2SAT 100
[2020-05-19 08:07] LABS: Chloride 113 mmol/L (98-107); Sodium 140 mmol/L (136-145)
[2020-05-19 08:08] LABS: Potassium 5.2 mmoL/L (3.5-5.1)
[2020-05-19 08:10] LABS: Creatinine Clearance Estimated 27 mL/min (50-200); Estimated Glomerular Filt Rate 19 ml/min (>60); GFR (African American) 23 ML/MIN (>60)
[2020-05-19 08:11] LABS: Anion Gap 17.2 mEq/L (5-15); Carbon Dioxide 15 mmol/L (22.0-30.0); Glucose 146 mg/dl (74-100)
[2020-05-19 08:12] LABS: Blood Urea Nitrogen 83 mg/dl (9-20)
[2020-05-19 08:15] LABS: Basophils % 0.2 % (0.1-2.0); Eosinophils # 0.2 K/mm3 (0.0-0.4); Eosinophils % 2.3 % (0.1-12.0); Hemoglobin 10.3 g/dL (14.1-18.0); Lymphocytes # 0.5 K/mm3 (0.7-4.5); Lymphocytes % 5.5 % (10-50); Mean Corpuscular HGB Conc 33.2 g/dL (31.8-35.4); Mean Corpuscular Hemoglobin 32.8 pg (27.0-31.2); Mean Corpuscular Volume 98.9 fl (80-94); Monocytes # 0.6 K/mm3 (0.1-1.0); Monocytes % 7.2 % (1.7-9.3); Neutrophils # 7.3 K/mm3 (1.8-7.8); Neutrophils % 84.9 % (37.0-80.0); Platelet Count 222 K/mm3 (142-424); Red Blood Count 3.14 M/mm3 (4.60-6.20); Red Cell Distribution Width 15.1 % (11.5-17.5); White Blood Count 8.6 K/mm3 (4.8-10.8)
--- NOTE | 2020-05-19 09:44 | HMH.DCSUM ---
General - General Admission date:: 05/18/20 Discharge date: 05/19/20 HPI HPI: 75-year-old male presents to the emergency room from the residential. UA a couple of days ago from residential. Pt sent from [facility] due to decrease in mental status. Patient denies any recent cough or shortness of breath, patient denies any sore throat or headache, patient denies any loss of taste or smell, patient denies any malaise or fatigue, patient denies any abdominal pain nausea vomiting or diarrhea. Patient admitted for decrease renal function and UTI. Hospital Course Hospital Course: urine culture + for Klebsiella oxytoca-sensitive to Invanz Laboratory Tests 05/17/20 05/17/20 05/17/20 22:23 22:26 22:26 WBC 9.8 RBC 3.71 L Hgb 11.9 L Hct 35.8 L MCV 96.4 H MCH 32.1 H MCHC 33.3 RDW 15.3 Plt Count 250 MPV 8.0 Neut % (Auto) 80.6 H Lymph % (Auto) 10.2 [place] % (Auto) 7.5 Eos % (Auto) 1.5 Baso % (Auto) 0.3 Neut # (Auto) 7.9 H Lymph # (Auto) 1.0 [place] # (Auto) 0.7 Eos # (Auto) 0.1 Baso # (Auto) 0.0 Sodium 134 L Potassium 5.6 H Chloride 103 Carbon Dioxide 15 L Anion Gap 21.6 H BUN 103 H* Creatinine 4.00 H Estimated Creat Clear 25 Estimated GFR 15 L* Est GFR ( Amer) 18 L* Glucose 124 H POC Glucose Lactate 2.1 Calcium 9.1 Total Bilirubin 0.4 AST 20 ALT 21 Alkaline Phosphatase 168 H Total Protein 7.3 Albumin 3.5 Globulin 3.8 H Albumin/Globulin Ratio 0.9 L 05/18/20 05/18/20 05/18/20 02:30 06:09 06:09 WBC 9.7 RBC 3.56 L Hgb 11.5 L Hct 34.4 L MCV 96.7 H MCH 32.4 H MCHC 33.5 RDW 15.0 Plt Count 224 MPV 8.4 Neut % (Auto) 79.3 Lymph % (Auto) 11.2 [place] % (Auto) 7.8 Eos % (Auto) 1.4 Baso % (Auto) 0.2 Neut # (Auto) 7.7 Lymph # (Auto) 1.1 [place] # (Auto) 0.8 Eos # (Auto) 0.1 Baso # (Auto) 0.0 Sodium 135 L Potassium 5.4 H Chloride 107 Carbon Dioxide 15 L Anion Gap 18.4 H BUN 100 H Creatinine 3.90 H Estimated Creat Clear 21 Estimated GFR 15 L* Est GFR ( Amer) 18 L* Glucose 121 H POC Glucose Lactate 0.7 Calcium 8.6 Total Bilirubin 0.4 AST 22 ALT 17 Alkaline Phosphatase 149 H Total Protein 6.8 Albumin 3.2 L Globulin 3.6 H Albumin/Globulin Ratio 0.9 L 05/18/20 05/18/20 05/18/20 06:21 11:01 16:41 WBC RBC Hgb Hct MCV MCH MCHC RDW Plt Count MPV Neut % (Auto) Lymph % (Auto) [place] % (Auto) Eos % (Auto) Baso % (Auto) Neut # (Auto) Lymph # (Auto) [place] # (Auto) Eos # (Auto) Baso # (Auto) Sodium Potassium Chloride Carbon Dioxide Anion Gap BUN Creatinine Estimated Creat Clear Estimated GFR Est GFR ( Amer) Glucose POC Glucose 149 H 179 H 165 H Lactate Calcium Total Bilirubin AST ALT Alkaline Phosphatase Total Protein Albumin Globulin Albumin/Globulin Ratio 05/18/20 05/19/20 05/19/20 20:28 05:46 07:35 WBC 8.6 RBC 3.14 L Hgb 10.3 L Hct 31.0 L MCV 98.9 H MCH 32.8 H MCHC 33.2 RDW 15.1 Plt Count 222 MPV 8.0 Neut % (Auto) 84.9 H Lymph % (Auto) 5.5 L [place] % (Auto) 7.2 Eos % (Auto) 2.3 Baso % (Auto) 0.2 Neut # (Auto) 7.3 Lymph # (Auto) 0.5 L [place] # (Auto) 0.6 Eos # (Auto) 0.2 Baso # (Auto) 0.0 Sodium Potassium Chloride Carbon Dioxide Anion Gap BUN Creatinine Estimated Creat Clear Estimated GFR Est GFR ( Amer) Glucose POC Glucose 222 H 155 H Lactate Calcium Total Bilirubin AST ALT Alkaline Phosphatase Total Protein Albumin Globulin Albumin/Globulin Ratio 05/19/20 07:35 WBC RBC Hgb Hct MCV MCH MCHC RDW Plt Coun
--- NOTE | 2020-05-19 13:45 | PC.NURSE ---
New IV started to left forearm/ac today by myself; IV left in due to pt requiring IV antibiotics x7days on DC. IV dated and initialed
== END 2020-05-19 13:45 ==
LOC: ER 22:12 → 2ND 23:36
PROVIDERS: Admitting Provider Family Medicine; Emergency Provider Family Medicine; PCP Emergency Medicine; Visit Provider Family Medicine
DX: E86.0 Dehydration (principal); N39.0 Urinary tract infection, site not specified; I11.0 Hypertensive heart disease with heart failure; I50.9 Heart failure, unspecified; I48.91 Unspecified atrial fibrillation; I25.2 Old myocardial infarction; E03.9 Hypothyroidism, unspecified; E11.9 Type 2 diabetes mellitus without complications; N17.9 Acute kidney failure, unspecified; Z79.4 Long term (current) use of insulin; Z79.82 Long term (current) use of aspirin; Z79.899 Other long term (current) drug therapy
CPT/HCPCS: 36415; 80048; 80053; 82962; 83605; 85025; 87040; 96365; 99284; G0378; J1335

== ENCOUNTER 2020-05-27 07:24 | Observation (INO) | payer MEDICARE, MEDICAID, SELFPAY ==
[2020-05-27] VITALS (8 sets, daily range): BP systolic 115–160; BP diastolic 50–81; PULSE 65–100; RESP 15–18; TEMP 36.5–37; O2SAT 98–100; BMI 39.1; BMI 32.1
--- NOTE | 2020-05-27 07:26 | CT_ITS ---
PROCEDURE: CT CERVICAL SPINE WO CON CLINICAL INDICATION: Fall with weakness Neck injury with pain, contusion/abrasion or hematoma, cervical sprain/strain the COMPARISON: CT SPCERVWO CT cervical spine wo con from 12/25/2017 TECHNIQUE: Axial images obtained with sagittal and coronal reformats. All CT scans at the facility use one or more dose reduction, viz: automated exposure control, ma/kV adjustment per patient size (including targeted exams where dose is matched to indication, i.e. head), or iterative reconstruction technique. Axial spiral CT scanning performed of the cervical spine beginning at the base of the skull and continuing to the upper T-spine. 3-D multiplanar reconstruction with 3-D manipulation of volumetric data set in image rendering was completed by the radiologist and/or technologist with the supervision of the radiologist on independent workstation. FINDINGS: Study is somewhat limited secondary to patient motion artifact. There is mild cervical curvature convex left. There is generalized osteopenia Degenerative disc disease C5-C6 and C6-C7. No obvious fracture or dislocation Near complete opacification right maxillary sinus. The lung apices are clear IMPRESSION: Degenerative changes. No obvious fracture Dictated b Cameron Daniels MD 05/27/2020 08:51 Cameron Daniels MD in [facility] 05/27/2020 08:51
--- NOTE | 2020-05-27 07:26 | CT_ITS ---
PROCEDURE: CT HEAD/BRAIN WO CON CLINICAL INDICATION: Fall with weakness Head injury with headache/pain, contusion, abrasion or hematoma, weakness COMPARISON: CT HEADWO CT head/brain wo con from 09/11/2018 TECHNIQUE: Axial images obtained. All CT scans at the facility use one or more dose reduction, viz: automated exposure control, ma/kV adjustment per patient size (including targeted exams where dose is matched to indication, i.e. head), or iterative reconstruction technique. FINDINGS: There is generalized atrophy. Encephalomalacia changes present in the right parietal, temporal, and occipital region. Old lacunar infarction noted in the left subinsular region. No midline shift or mass effect. No acute intracranial hemorrhage. There has been a prior right parietal craniotomy. There is severe opacification of the right maxillary sinus IMPRESSION: 1. No acute intracranial findings. 2. Right maxillary sinus disease Dictated b Cameron Daniels MD 05/27/2020 08:47 Cameron Daniels MD in [facility] 05/27/2020 08:47
--- NOTE | 2020-05-27 07:26 | XR_ITS ---
PROCEDURE: XR CHEST AP CLINICAL HISTORY: weakness COMPARISON: CR XR CHEST PORTABLE PICC PLAC from 01/05/2020 CR XR CHEST PORTABLE PICC PLAC from 01/05/[address] CHEST WO CON from 02/04/2020 CR XR CHEST PORTABLE from 02/04/2020 FINDINGS: Study is limited with underpenetration and moderate patient rotation. There is cardiomegaly with mild prominence of the mediastinum. No lobar consolidation or collapse IMPRESSION: Cardiomegaly Dictated b Cameron Daniels MD 05/27/2020 08:55 Cameron Daniels MD in [facility] 05/27/2020 08:55
[2020-05-27 07:43] LABS: Microscopic, Urine URINE MICROSCOPIC (MICROSCOPIC)
[2020-05-27 07:44] LABS: Appearance,Urine CLOUDY (Clear); Bilirubin,Urine Negative (Negative); Blood, Urine 2+ (Negative); Color,Urine YELLOW (Yellow); Glucose,Urine (UA) Negative (Negative); Ketones,Urine Negative (Negative); Leukocyte Esterase,Urine 3+ (Negative); Nitrate,Urine Negative (Negative); PH,Urine 5.5 (5.0-8.5); Protein,Urine 2+ (Negative); Specific Gravity, Urine 1.025 (1.005-1.030); Urobilinogen,Urine 0.2 EU/dl (0.2)
[2020-05-27 07:48] LABS: Chloride 109 mmol/L (98-107)
[2020-05-27 07:49] LABS: Potassium 4.7 mmoL/L (3.5-5.1); Sodium 141 mmol/L (136-145)
[2020-05-27 07:50] LABS: Basophils % 0.4 % (0.1-2.0); Eosinophils # 0.3 K/mm3 (0.0-0.4); Eosinophils % 2.7 % (0.1-12.0); Hematocrit 35.3 % (42.0-52.0); Hemoglobin 11.7 g/dL (14.1-18.0); Lymphocytes # 0.9 K/mm3 (0.7-4.5); Lymphocytes % 9.6 % (10-50); Mean Corpuscular Volume 97.1 fl (80-94); Monocytes # 0.7 K/mm3 (0.1-1.0); Monocytes % 7.3 % (1.7-9.3); Neutrophils # 7.5 K/mm3 (1.8-7.8); Neutrophils % 80.1 % (37.0-80.0); Platelet Count 241 K/mm3 (142-424); Red Blood Count 3.64 M/mm3 (4.60-6.20); Red Cell Distribution Width 15.2 % (11.5-17.5); White Blood Count 9.4 K/mm3 (4.8-10.8)
[2020-05-27 07:51] LABS: Alanine Aminotransferase 19 U/L (12-78); Alkaline Phosphatase 145 U/L (38-126); Aspartate Amino Transferase 23 U/L (17-59); Bilirubin,Total 0.5 mg/dl (0.2-1.3); Creatinine Clearance Estimated 28 mL/min (50-200); Estimated Glomerular Filt Rate 16 ml/min (>60); GFR (African American) 20 ML/MIN (>60)
[2020-05-27 07:52] LABS: Albumin Level 3.3 g/dl (3.5-5.0); Albumin/Globulin Ratio 0.9 (1.1-1.8); Anion Gap 22.7 mEq/L (5-15); Calcium 9.1 mg/dl (8.4-10.2); Carbon Dioxide 14 mmol/L (22.0-30.0); Globulin 3.8 g/dL (1.3-3.2); Glucose 128 mg/dl (74-100); Total Protein,Serum 7.1 g/dl (6.3-8.2)
[2020-05-27 07:57] LABS: WBC,Urine 20-50 #/hpf (0-3)
[2020-05-27 07:58] LABS: Bacteria,Urine 2+ /lpf; Squamous Epithelial Cell,Urine Occasional #/hpf (0-5)
[2020-05-27 08:02] LABS: Blood Urea Nitrogen 111 mg/dl (9-20); Lactic Acid 4.6 mmol/L (0.7-2.1)
--- NOTE | 2020-05-27 08:04 | PC.NURSE ---
pt returned from CT
[2020-05-27 08:15] LABS: Adenovirus,PCR Not Detected (NotDetected); Bordetella Pertussis Not Detected (NotDetected); Chlamydophila Pneumoniae, PCR Not Detected (NotDetected); Coronavirus 19, PCR Not Detected (NotDetected); Coronavirus 229E Not Detected (NotDetected); Coronavirus NL63 Not Detected (NotDetected); Coronavirus OC43 Not Detected (NotDetected); Coronovirus HKU1,PCR Not Detected (NotDetected); Human Metapneumovirus Not Detected (NotDetected); Influenza A, PCR Not Detected (NotDetected); Influenza AH1, 2009 Not Detected (NotDetected); Influenza AH1, PCR Not Detected (NotDetected); Influenza AH3,PCR Not Detected (NotDetected); Influenza B, PCR Not Detected (NotDetected); Mycoplasma Pneumoniae, PCR Not Detected (NotDetected); Parainfluenza 1, PCR Not Detected (NotDetected); Parainfluenza 2, PCR Not Detected (NotDetected); Parainfluenza 3, PCR Not Detected (NotDetected); Parainfluenza 4, PCR Not Detected (NotDetected); Respiratory Syncytial Virus Not Detected (NotDetected); Rhinovirus/Enterovirus Not Detected (NotDetected)
--- NOTE | 2020-05-27 09:08 | HMH.EDWEAK ---
ED Disposition Clinical Impression: Obesity (BMI 30-39.9), BRITTNI (acute kidney injury), SIRS (systemic inflammatory response syndrome) UTI (urinary tract infection) Qualifiers: Urinary tract infection type: site unspecified Hematuria presence: without hematuria Qualified Code(s): N39.0 - Urinary tract infection, site not specified Hypothyroidism Qualifiers: Hypothyroidism type: acquired Qualified Code(s): E03.9 - Hypothyroidism, unspecified Disposition: Admitted as Observation Condition on Discharge: Fair Referrals: Dave Vazquez MD [Primary Care Provider] - - Critical Care Critical Care Time: No Attestation: On 05/27/20, the high probability of a clinically significant, sudden or life threatening deterioration of the following system(s) required my full and direct attention, intervention and personal management. The time I documented below is in addition to time spent performing reported procedures but includes the following listed in this critical care notation. Medical Decision Making - Medical Records Medical records reviewed: Yes: I reviewed the patient's medical records. - Yogesh Inquiry Pt receiving controlled substance: No Vital Signs: 05/27/20 07:36 05/27/20 08:15 05/27/20 09:00 Temperature 97.7 F Temperature Source Rectal Pulse Rate [Right] 100 H 93 H 86 Respiratory Rate 16 16 15 Blood Pressure [Right Arm] 151/81 H 115/50 L 116/64 Blood Pressure Mean [Right Arm] 104 71 81 Blood Pressure Source [Right Arm] Automatic Cuff Automatic Cuff Blood Pressure Position [Right Arm] Sitting Sitting 02 Sat by Pulse Oximetry 100 100 99 Oxygen Delivery Method Nasal Cannula Nasal Cannula Nasal Cannula Oxygen Flow Rate (LPM) 3 2 - Lab Data Lab results reviewed: Yes: I reviewed the patient's lab results. Lab Results 05/27/20 07:30: WBC 9.4, RBC 3.64 L, Hgb 11.7 L, Hct 35.3 L, MCV 97.1 H, MCH 32.0 H, MCHC 33.0, RDW 15.2, Plt Count 241, MPV 8.0, Neut % (Auto) 80.1 H, Lymph % (Auto) 9.6 L, [place] % (Auto) 7.3, Eos % (Auto) 2.7, Baso % (Auto) 0.4, Neut # (Auto) 7.5, Lymph # (Auto) 0.9, [place] # (Auto) 0.7, Eos # (Auto) 0.3, Baso # (Auto) 0.0 05/27/20 07:30: Sodium 141, Potassium 4.7, Chloride 109 H, Carbon Dioxide 14 L, Anion Gap 22.7 H, BUN 111 H*, Creatinine 3.70 H, Estimated Creat Clear 28, Estimated GFR 16 L*, Est GFR ( Amer) 20 L, Glucose 128 H, Calcium 9.1, Total Bilirubin 0.5, AST 23, ALT 19, Alkaline Phosphatase 145 H, Total Protein 7.1, Albumin 3.3 L, Globulin 3.8 H, Albumin/Globulin Ratio 0.9 L 05/27/20 07:30: Lactate 4.6 H 05/27/20 07:35: Urine Color Yellow, Urine Appearance Cloudy, Urine pH 5.5, Ur Specific [place] 1.025, Urine Protein 2+, Urine Glucose (UA) Negative, Urine Ketones Negative, Urine Blood 2+, Urine Nitrate Negative, Urine Bilirubin Negative, Urine Urobilinogen 0.2, Ur Leukocyte Esterase 3+ A, Urine RBC 5-10, Urine WBC 20-50, Ur Squamous Epith Cells Occasional, Urine Bacteria 2+ Result diagrams: 05/27/20 07:30 05/27/20 07:30 Orders (Tests/Meds): ED MEDICATIONS Generic Name Dose Route Start Last Admin Trade Name Eleanor PRN Reason Stop Dose Admin Sodium Chloride 1,000 mls @ 999 mls/hr 05/27/20 08:15 05/27/20 07:45 Sod Chlor 0.9% 1000ml Bag IV 05/27/20 09:15 999 mls/hr .Q1H1M CINDY Administration Levofloxacin/Dextrose 500 mg in 100 mls @ 100 mls/hr 05/27/20 08:30 05/27/20 08:20 Levaquin 500mg/100ml Premix IV 06/10/20 08:29 100 mls/hr Q48H CINDY Administration Protocol Ertapenem 0.5 gm/ Sodium 50 mls @ 100 mls/hr 05/27/20 08:30 05/27/20 08:55 Chloride IV 06/10/20 08:29 100 mls/hr Q24H CINDY Administration Protocol ORDERS Category Date Time Status Full Resp Panel (COVID)(INPT) Routine Lab 05/27/20 08:10 Received Blood Culture Stat Micro 05/27/20 07:30 Received Urine Culture Stat Micro 05/27/20 07:35 Received - Radiology Data #1 Image(s): Chest Image Reviewed: Yes I reviewed the patient's radiology image Prel
--- NOTE | 2020-05-27 10:06 | HMH.HP ---
*Admission Date: 05/27/20 *Chief complaint: weakness *History of present illness: this pt presented to the ed with acute change in mental status at [facility] - pt with recent admit with uti and julio -pt without chest painand no vomiting or diarrhea - Pt presents from [facility] this morning with weakness. senior care staff reports pt fell last night and hit his head and this morning when they went in to check on him he was having a hard time repsonding. Pt arrives having inappropriate words. Pt is currently being treated for UTI at [facility]- pt admitted for ivf and meds - [facility] History I have reviewed the patient's past medical history: Yes Medical History: Reports:: Arrhythmia, Atrial Fibrillation, Cardiomyopathy, Congestive Heart Failure, Chronic Obstructive Pulmonary Disease (COPD), Coronary Artery Disease, Diabetes Mellitus Type 2, Hyperlipidemia, Hypertension, Myocardial Infarction, Peripheral Vascular Disease, Renal Disease, Seizures (pt reports a seizure 1 year ago) Denies:: Cancer, Diabetes Mellitus Type 1, Internal Pacemaker, Lung Disease, MRSA *Have you ever received a pneumonia vaccine?: No *Have you received a flu vaccine this season?: No Other Medical History: Reports: Anemia, Hypothyroidism. Denies: Blood Transfusion Reaction Laterality Cases: Left: Total Hip Replacement, Other, Bilateral: Tonsillectomy Other Surgeries: Yes: Cardiac Catheterization, Colonoscopy, Coronary Stent, Skin Cancer Excision, Other. No: Pacemaker Amputation: No Fractures: Yes - *Social History Smoking Status: Former smoker Tobacco Type: cigarettes # Packs/Day (cigarettes): 2 #Yrs smoked (if former smoker): 40 Alcohol Intake: never Alcohol Intake Frequency:: holidays/special occasions only Substance Use Type: denies use *Occupational Status:: unemployed Housing: [facility] Household Members: other *Travel in the last 8 weeks: None Family Hx:: Unable to obtain Review of Systems - Review of Systems Review of systems:: pertinent systems reviewed and negative unless documented below - Constitutional Reports weakness, Denies fever(s) - Eyes Denies change in vision - ENT Denies dizziness - *Cardiovascular Denies shortness of breath - *Respiratory Denies cough - *Gastrointestinal Denies abdominal pain - *Genitourinary Denies blood in urine - *Musculoskeletal Denies joint pain - Integumentary/Breasts Denies rash - *Neurologic Reports weakness, Denies localized weakness, Denies seizure-like activity - Psychiatric Denies anxiety Meds Home Medications Medication Instructions Recorded Confirmed Type ascorbic acid (vitamin C) 500 mg 500 mg PO DAILY tab 10/30/17 05/27/20 History tablet atorvastatin 40 mg tablet 40 mg PO HS 10/30/17 05/27/20 History ferrous sulfate 325 mg (65 mg 325 mg PO Q48H tab 10/30/17 05/27/20 History iron) tablet levothyroxine 50 mcg tablet 50 mcg PO DAILY tab 10/30/17 05/27/20 History Duloxetine HCl [Cymbalta 30mg 60 mg PO DAILY 04/12/18 05/27/20 History capsule] Docusate Sodium [Colace 250mg 250 mg PO BID 11/23/18 05/27/20 History capsule] Fluticasone Propionate [Flonase 1 spr NS DAILY 11/23/18 05/27/20 History 50mcg nasal spray 16gm] Isosorbide Mononitrate [Imdur 30mg 30 mg PO DAILY 11/23/18 05/27/20 History ER tablet] Cholecalciferol (Vitamin D3) 2,000 unit PO DAILY 06/08/19 05/27/20 History [Vitamin D3] Aspirin [Aspirin 81mg chewable 81 mg PO DAILY 07/12/19 05/27/20 History tab] Spironolactone [Aldactone 25mg 25 mg PO DAILY 07/12/19 05/27/20 History Tab] carvediloL [Coreg 25mg Tablet] 50 mg PO BID 07/12/19 05/27/20 History losartan 100 mg tablet 100 mg PO DAILY 07/16/19 05/27/20 History Trazodone HCl 100 mg PO HS 01/02/20 05/27/20 History Acetaminophen [Acetaminophen Extra 1,000 mg PO Q6HP PRN 02/04/20 05/27/20 History Strength] carbamazepine 100 mg chewable 100 mg PO DAILY tab 03/03/20 05/27/20 History tablet furosemide 20 mg tablet 20 mg PO BID
--- NOTE | 2020-05-27 10:26 | PC.NURSE ---
Pt arrived to the floor at this time via stretcher.
--- NOTE | 2020-05-27 11:03 | P.CONPHA_ITS ---
[facility] Pharmacy VTE Monitoring - Patient Demographics Admission date: 05/27/20 Report Date: 05/27/20 Time: 11:03 Allergies/Adverse Reactions: Patient Allergies No Known Allergies Allergy (Verified 05/27/20 07:44) Height: 1.7 m Weight: 113.398 kg Patient Problems: Current Active Problems (Last Updated 11/12/19 @ 13:29 by Cara Mendoza RN) BRITTNI (acute kidney injury) (Acute) SIRS (systemic inflammatory response syndrome) (Acute) UTI (urinary tract infection) (Acute) Hypothyroid (Acute) Obesity (BMI 30-39.9) (Chronic) - VTE Risk Labs: VTE Related Lab Results Hgb 11.7 g/dL (14.1-18.0) L 05/27/20 07:30 Hct 35.3 % (42.0-52.0) L 05/27/20 07:30 Plt Count 241 K/mm3 (142-424) 05/27/20 07:30 BUN 111 mg/dl (9-20) H* 05/27/20 07:30 Creatinine 3.70 mg/dl (0.66-1.25) H 05/27/20 07:30 Estimated Creat Clear 28 mL/min (50-200) 05/27/20 07:30 - Prophylaxis VTE Prophylaxis Ordered?: Yes Types of VTE Prophylaxis: TEDS Knee High Location of Applied Device: Bilateral Lower Extremeties
[2020-05-27 11:31] LABS: Reflex Lactic Add Lactic Reflex
[2020-05-27 11:52] LABS: POC Glucose,Bedside 119 (70-110)
[2020-05-27 12:28] LABS: Lactic Acid Follow Up (RFLX 1) 2.2 mmol/L (0.7-2.1)
[2020-05-27 14:17] LABS: Reflex Lactic (2 hrs) Add Lactic Reflex
[2020-05-27 15:27] LABS: Lactic Acid Follow up (RFLX 2) 1.2 mmol/L (0.7-2.1)
--- NOTE | 2020-05-27 17:00 | PC.NURSE ---
PT HAD AN EPISODE OF AGITATION WHEN THIS [employer] ATTEMPTED TO CHECK FSBS. PT REFUSED FS AND BEGAN SCREAMING HELP! HELP ME! EDUCATION PROVIDED TO PT REGARDING THE IMPORTANCE OF MONITORING BLOOD SUGAR. PT CONTINUED TO REFUSE. NO S/S OF HYPOGLYCEMIA OR HYPERGLYCEMIA. WILL CONTINUE TO MONITOR
--- NOTE | 2020-05-27 18:57 | PC.NURSE ---
Addendum entered by Kermit Polanco RN 05/28/20 07:21: LATE ENTRY, INQUIRY MADE WHILE RECEIVING REPORT FROM MALAIKA PILLAI RN IF BOLUS REQUIRED R/T ELEVATED LACTIC, PER ER PHYSICIAN AND NURSE, FULL BOLUS NOT ORDERED. Original Note: ALERT AND ORIENTED X1. PT HAS SLEPT SINCE ARRIVAL TO UNIT AND DISPLAYS AGITATED BEHAVIOR WHEN AWAKE. CONSENT FOR DNR OBTAINED FROM POA, SON. FC IS SECURE, PATENT, AND DRAINING CLOUDY DARK YELLOW URINE. VSS. NO DISTRESS NOTED. SAFETY MEASURES IN PLACE, WILL CONTINUE TO MONITOR
[2020-05-27 20:55] LABS: POC Glucose,Bedside 102 (70-110)
[2020-05-28] VITALS (12 sets, daily range): BP systolic 118–179; BP diastolic 66–114; PULSE 90–112; RESP 14–22; TEMP 36.8–37.2; O2SAT 92–100; BMI 34.6
[2020-05-28 05:50] LABS: POC Glucose,Bedside 108 (70-110)
[2020-05-28 06:22] LABS: Basophils % 0.3 % (0.1-2.0); Eosinophils # 0.2 K/mm3 (0.0-0.4); Eosinophils % 2.5 % (0.1-12.0); Hematocrit 33.9 % (42.0-52.0); Lymphocytes # 0.7 K/mm3 (0.7-4.5); Lymphocytes % 8.2 % (10-50); Mean Corpuscular HGB Conc 32.6 g/dL (31.8-35.4); Mean Corpuscular Hemoglobin 31.9 pg (27.0-31.2); Mean Corpuscular Volume 98.1 fl (80-94); Mean Platelet Volume 7.8 fl (7.4-10.4); Monocytes # 0.7 K/mm3 (0.1-1.0); Monocytes % 7.8 % (1.7-9.3); Neutrophils # 6.8 K/mm3 (1.8-7.8); Neutrophils % 81.3 % (37.0-80.0); Platelet Count 204 K/mm3 (142-424); Red Blood Count 3.46 M/mm3 (4.60-6.20); Red Cell Distribution Width 15.1 % (11.5-17.5); White Blood Count 8.4 K/mm3 (4.8-10.8)
[2020-05-28 06:23] LABS: Chloride 115 mmol/L (98-107); Potassium 4.2 mmoL/L (3.5-5.1); Sodium 145 mmol/L (136-145)
[2020-05-28 06:26] LABS: Anion Gap 16.2 mEq/L (5-15); Carbon Dioxide 18 mmol/L (22.0-30.0); Creatinine Clearance Estimated 25 mL/min (50-200); Estimated Glomerular Filt Rate 19 ml/min (>60); GFR (African American) 23 ML/MIN (>60)
[2020-05-28 06:27] LABS: Calcium 9.1 mg/dl (8.4-10.2); Glucose 108 mg/dl (74-100); Magnesium 2.3 mg/dl (1.6-2.3)
[2020-05-28 06:33] LABS: Blood Urea Nitrogen 90 mg/dl (9-20)
--- NOTE | 2020-05-28 09:39 | HMH.ACPN2 ---
Internal Medicine - PN: Subj *Date: 05/29/20 *Time: 00:46 Interval history: slight better - labs better Exam Vital signs and Labs for Last 24 Hours: Temp Pulse Resp BP Pulse Ox 98.3 F 93 H 17 138/82 100 05/28/20 04:00 05/28/20 04:00 05/28/20 04:00 05/28/20 04:00 05/28/20 04:00 Laboratory Results - last 24 hr 05/27/20 07:35: Urine Color Yellow, Urine Appearance Cloudy, Urine pH 5.5, Ur Specific Emery 1.025, Urine Protein 2+, Urine Glucose (UA) Negative, Urine Ketones Negative, Urine Blood 2+, Urine Nitrate Negative, Urine Bilirubin Negative, Urine Urobilinogen 0.2, Ur Leukocyte Esterase 3+ A, Urine RBC 5-10, Urine WBC 20-50, Ur Squamous Epith Cells Occasional, Urine Bacteria 2+ 05/27/20 11:27: POC Glucose 119 H 05/27/20 12:12: Lactate 2.2 H 05/27/20 15:10: Lactate 1.2 05/27/20 20:20: POC Glucose 102 05/28/20 05:42: POC Glucose 108 05/28/20 05:50: WBC 8.4, RBC 3.46 L, Hgb 11.0 L, Hct 33.9 L, MCV 98.1 H, MCH 31.9 H, MCHC 32.6, RDW 15.1, Plt Count 204, MPV 7.8, Neut % (Auto) 81.3 H, Lymph % (Auto) 8.2 L, [place] % (Auto) 7.8, Eos % (Auto) 2.5, Baso % (Auto) 0.3, Neut # (Auto) 6.8, Lymph # (Auto) 0.7, [place] # (Auto) 0.7, Eos # (Auto) 0.2, Baso # (Auto) 0.0 05/28/20 05:50: Sodium 145, Potassium 4.2, Chloride 115 H, Carbon Dioxide 18 L D, Anion Gap 16.2 H, BUN 90 H, Creatinine 3.20 H, Estimated Creat Clear 25, Estimated GFR 19 L*, Est GFR ( Amer) 23 L, Glucose 108 H, Calcium 9.1, Magnesium 2.3 I & O for Last 24 hours: Intake & Output 05/25/20 05/26/20 05/27/20 05/28/20 11:59 11:59 11:59 11:59 Intake Total 2310 / 2310 Output Total 800 / 800 Balance 1510 / 1510 Weight 193 lb 5 oz Microbiology Reports for the Last 24 Hours: Microbiology 05/27/20 07:35 Urine,Catheterized Urine Culture - Preliminary Yeast - Constitutional obese, somnolent - *Routine HEENT Exam Head: Present: normocephalic Eye: Present: EOMI, PERRL ENT: Present: mucous membranes dry - *Routine Neck Exam Absent: JVD - *Routine Respiratory Exam Present: decreased breath sounds - *Routine Cardiovascular Exam Present: RRR, murmur, S4 - *Routine Abdominal Exam Present: soft - *Routine Extremities Exam Present: edema - *Routine Skin Exam Present: intact - *Routine Neurological Exam Present: CN II-XII intact, altered mental status. Absent: motor deficit - Routine Psychiatric Exam Present: unable to assess Assessment and Plan (1) BRITTNI (acute kidney injury) Current visit: Yes Status: Acute Category: Medical Code(s): N17.9 - Acute kidney failure, unspecified (2) Hypothyroid Current visit: Yes Status: Acute Qualifiers: Hypothyroidism type: acquired Qualified Code(s): E03.9 - Hypothyroidism, unspecified Category: Medical Code(s): E03.9 - Hypothyroidism, unspecified (3) SIRS (systemic inflammatory response syndrome) Current visit: Yes Status: Acute Category: Medical Code(s): R65.10 - Systemic inflammatory response syndrome (SIRS) of non-infectious origin without acute organ dysfunction (4) UTI (urinary tract infection) Current visit: Yes Status: Acute Qualifiers: Urinary tract infection type: site unspecified Hematuria presence: without hematuria Qualified Code(s): N39.0 - Urinary tract infection, site not specified Category: Medical Code(s): N39.0 - Urinary tract infection, site not specified (5) Obesity (BMI 30-39.9) Current visit: Yes Status: Chronic Category: Medical Code(s): E66.9 - Obesity, unspecified (6) CHF (congestive heart failure) Current visit: No Status: Acute Qualifiers: Heart failure type: combined systolic and diastolic Heart failure chronicity: acute on chronic Qualified Code(s): I50.43 - Acute on chronic combined systolic (congestive) and diastolic (congestive) heart failure Category: Medical Code(s): I50.9 - Heart failure, unspecified
--- NOTE | 2020-05-28 11:00 | PC.NURSE ---
Meeta w/ Dr. Vazquez. No changes to plan of treatment at this time.
[2020-05-28 11:27] LABS: POC Glucose,Bedside 138 (70-110)
--- NOTE | 2020-05-28 12:21 | CT_ITS ---
PROCEDURE: CT HEAD/BRAIN WO CON CLINICAL INDICATION: seizure COMPARISON: CT CT HEAD/BRAIN WO CON from 05/27/2020 TECHNIQUE: Axial images obtained. All CT scans at the facility use one or more dose reduction, viz: automated exposure control, ma/kV adjustment per patient size (including targeted exams where dose is matched to indication, i.e. head), or iterative reconstruction technique. FINDINGS: No midline shift, mass effect, intracranial hemorrhage, hydrocephalus, or extra-axial fluid collection is evident. There is generalized atrophy with hypoattenuation of the periventricular white matter consistent with microangiopathic changes.. Encephalomalacia changes are present in the right parietal occipital and temporal lobe. The calvarium has an unremarkable appearance. No mastoid effusion. There is near complete opacification of the right maxillary sinus with an air-fluid level. There has been a prior right parietal craniotomy. IMPRESSION: 1. No acute intracranial findings. Chronic ischemic changes 2. Right maxillary sinus disease Dictated b Cameron Daniels MD 05/29/2020 06:22 Cameron Daniels MD in [facility] 05/29/2020 06:22
--- NOTE | 2020-05-28 12:24 | PC.NURSE ---
AT 1212 PT'S SON WAS AT BEDSIDE HAVING A NORMAL CONVERSATION WITH PT. SON CAME OUT AND STATED HIS FATHER WAS HAVING A SEIZURE. STAFF WENT IN THE ROOM AND PT WAS HAVING A GRAND MAL SEIZURE. SEIZURE LASTED FOR ABOUT 30 SECONDS. VS 143/114. HR 109. RESPIRATIONS 24. OXYGEN 100% ON 2 L NC. PHYSICIAN MRI MANAGER WAS NOTIFIED. ATIVAN 1 MG IV Q2H FOR SEIZURE ACTIVITY WAS ORDERED. CT OF THE HEAD W/O CONTRAST. LOADING DOSE OF DILANTIN.
--- NOTE | 2020-05-28 13:12 | PC.NURSE ---
NOTIFIED PHYSICIAN THAT IT WAS FOUND IN HISTORY PT REPORTED A SEIZURE 1 YEAR AGO. NOTED THAT PT IS ON CARBAMAZEPINE [address] OF HEAD WAS COMPLETED. DILANTIN IV HAS BEEN STARTED. PHYSICIAN CALLED BACK AND STATED TO GET STAT CARBAMAZEPINE LEVEL AND ONLY DO THIS ONE DOSE DILANTIN. AFTER LEVEL RESULTS START LOADING DOSE OF CARBAMAZEPINE. PHARMACY AND LAB NOTIFIED. PT IS SOMEWHAT AGITATED. BP ELEVATED 179/109. PHYSICIAN ORDERED ONE TIME DOSE OF ATIVAN 0.5 MG IV.
[2020-05-28 14:00] LABS: Carbamazepine (Tegretol) < 3.0 ug/ml (4.0-12.0)
--- NOTE | 2020-05-28 16:55 | PC.NURSE ---
Addendum entered by Lino Schulte RN 05/28/20 17:34: PT IS MORE AO @ THIS TIME, IS STILL CONFUSED BUT DID SAY HELLO TO NURSE UPON ENTERING THE ROOM. Original Note: AT THIS TIME PT IS STILL VERY LETHARGIC AND DIFFICULT TO AROSE R/T SEIZURE EARLIER IN THE DAY. SEIZURE PADS ARE IN PLACE, BED IS IN THE LOW POSITION WITH BED RAILS UP *2. PUPILS ARE PERRLA. AT THIS TIME PT IS UNABLE TO FOLLOW COMMANDS, PT IS AT RISK FOR COMPROMISED AIRWAY THEREFORE PO MEDS ARE CONTRAINDICATED AT THIS TIME R/T TO PATIENTS LOC. MEALS WILL ALSO NEED TO BE HELD. PT HAS RESPONDED TO STERNAL RUB, AND WILL OPEN EYES TO NAME BUT IS STILL UNABLE TO COMMUNICATE EFFECTIVELY. GAG REFLEX IS INTACT INDICATED BY COUGHING DURING ORAL CARE. PT DOES NOT APPEAR AGITATED OR IN PAIN AT THIS TIME. Q2 ORAL CARE AND Q2 TURNS WILL BE NEEDED UNTIL PT CONDITION IMPROVES. PT DOES HAVE A SMALL INJURY TO THE LEFT SIDE OF HIS TONGUE FROM THE SEIZURE THIS AFTERNOON, IT IS NOT CURRENTLY BLEEDING. AIR WAY CLEAR AT THIS TIME. WILL CONTINUE TO MONITOR CURRENT VS 140/84, 100BPM, 100% ON 2L NC, 18 RESP
[2020-05-28 16:57] LABS: POC Glucose,Bedside 179 (70-110)
[2020-05-28 20:50] LABS: POC Glucose,Bedside 147 (70-110)
[2020-05-29] VITALS: BP 152/90; PULSE 90; PULSE 95; RESP 16; TEMP 36.6; O2SAT 97
[2020-05-29 04:00] VITALS: BP 150/74; PULSE 90; PULSE 98; RESP 16; TEMP 36.6; O2SAT 100
--- NOTE | 2020-05-29 04:30 | PC.NURSE ---
pt has rested majority of the night. 2100 meds were held for safety r/t previous seizure activity. Pt received a bed bath and linen change this shift. Pt has been oriented to name and birthday and at times could state place, but not consistently.. Pt has been turned q2h and has received oral care q2h. Pt states that he is in no pain and shows no signs of distress. Call light is within reach, seizure pads remain in place. Will continue to monitor
[2020-05-29 05:00] VITALS: BMI 34.8
[2020-05-29 05:46] LABS: POC Glucose,Bedside 143 (70-110)
[2020-05-29 08:00] VITALS: BP 135/86; PULSE 100; PULSE 94; RESP 18; TEMP 36.6; O2SAT 100
--- NOTE | 2020-05-29 09:36 | HMH.ACPN2 ---
Internal Medicine - PN: Subj *Date: 05/29/20 *Time: 09:36 Interval history: pt states he thinks he is going to live. labs improved pt more awake Exam Vital signs and Labs for Last 24 Hours: Temp Pulse Resp BP Pulse Ox 97.8 F 94 H 18 135/86 100 05/29/20 08:00 05/29/20 08:00 05/29/20 08:00 05/29/20 08:00 05/29/20 08:00 Laboratory Results - last 24 hr 05/28/20 10:54: POC Glucose 138 H 05/28/20 13:30: Carbamazepine < 3.0 L 05/28/20 16:26: POC Glucose 179 H 05/28/20 20:39: POC Glucose 147 H 05/29/20 05:38: POC Glucose 143 H I & O for Last 24 hours: Intake & Output 05/26/20 05/27/20 05/28/20 05/29/20 11:59 11:59 11:59 11:59 Intake Total 2310 / 2310 1963 / 1963 Output Total 800 / 800 1075 / 1075 Balance 1510 / 1510 888 / 888 Weight 193 lb 5 oz 195 lb 4 oz 196 lb 7 oz Microbiology Reports for the Last 24 Hours: Microbiology 05/27/20 07:30 Blood Blood Culture - Preliminary NO GROWTH AFTER 48 HOURS 05/27/20 07:30 Blood Blood Culture - Preliminary NO GROWTH AFTER 48 HOURS 05/27/20 07:35 Urine,Catheterized Urine Culture - Preliminary Yeast - Constitutional no acute distress, chronically ill appearing - *Routine HEENT Exam Head: Present: normocephalic Eye: Present: PERRL ENT: Present: mucous membranes moist - *Routine Neck Exam Present: supple. Absent: lymphadenopathy - *Routine Respiratory Exam Present: CTA bilaterally - *Routine Cardiovascular Exam Present: RRR - *Routine Abdominal Exam Present: soft, normoactive bowel sounds. Absent: tenderness - *Routine Extremities Exam Present: normal capillary refill Comments: rt hand only has three fingers - *Routine Skin Exam Present: warm, wounds. Absent: rash Comments: scattered scabbs thoughout arms and legs - *Routine Neurological Exam Present: alert, oriented X3 - Routine Psychiatric Exam Present: normal affect Assessment and Plan (1) BRITTNI (acute kidney injury) Current visit: Yes Status: Acute Category: Medical Code(s): N17.9 - Acute kidney failure, unspecified (2) Hypothyroid Current visit: Yes Status: Acute Qualifiers: Hypothyroidism type: acquired Qualified Code(s): E03.9 - Hypothyroidism, unspecified Category: Medical Code(s): E03.9 - Hypothyroidism, unspecified (3) SIRS (systemic inflammatory response syndrome) Current visit: Yes Status: Acute Category: Medical Code(s): R65.10 - Systemic inflammatory response syndrome (SIRS) of non-infectious origin without acute organ dysfunction (4) UTI (urinary tract infection) Current visit: Yes Status: Acute Qualifiers: Urinary tract infection type: site unspecified Hematuria presence: without hematuria Qualified Code(s): N39.0 - Urinary tract infection, site not specified Category: Medical Code(s): N39.0 - Urinary tract infection, site not specified (5) Obesity (BMI 30-39.9) Current visit: Yes Status: Chronic Category: Medical Code(s): E66.9 - Obesity, unspecified (6) CHF (congestive heart failure) Current visit: No Status: Acute Qualifiers: Heart failure type: combined systolic and diastolic Heart failure chronicity: acute on chronic Qualified Code(s): I50.43 - Acute on chronic combined systolic (congestive) and diastolic (congestive) heart failure Category: Medical Code(s): I50.9 - Heart failure, unspecified
[2020-05-29 10:09] LABS: Basophils % 0.3 % (0.1-2.0); Eosinophils # 0.2 K/mm3 (0.0-0.4); Eosinophils % 2.5 % (0.1-12.0); Hematocrit 32.2 % (42.0-52.0); Hemoglobin 10.8 g/dL (14.1-18.0); Lymphocytes # 0.7 K/mm3 (0.7-4.5); Lymphocytes % 9.4 % (10-50); Mean Corpuscular HGB Conc 33.7 g/dL (31.8-35.4); Mean Corpuscular Hemoglobin 32.8 pg (27.0-31.2); Mean Corpuscular Volume 97.4 fl (80-94); Mean Platelet Volume 8.7 fl (7.4-10.4); Monocytes # 0.7 K/mm3 (0.1-1.0); Monocytes % 8.3 % (1.7-9.3); Neutrophils # 6.3 K/mm3 (1.8-7.8); Neutrophils % 79.6 % (37.0-80.0); Platelet Count 199 K/mm3 (142-424); Red Blood Count 3.31 M/mm3 (4.60-6.20); White Blood Count 7.9 K/mm3 (4.8-10.8)
[2020-05-29 10:15] LABS: Chloride 119 mmol/L (98-107)
[2020-05-29 10:16] LABS: Potassium 4.1 mmoL/L (3.5-5.1); Sodium 148 mmol/L (136-145)
[2020-05-29 10:18] LABS: Blood Urea Nitrogen 73 mg/dl (9-20); Creatinine Clearance Estimated 29 mL/min (50-200); Estimated Glomerular Filt Rate 22 ml/min (>60); GFR (African American) 27 ML/MIN (>60)
[2020-05-29 10:19] LABS: Anion Gap 16.1 mEq/L (5-15); Calcium 9.1 mg/dl (8.4-10.2); Carbon Dioxide 17 mmol/L (22.0-30.0); Glucose 130 mg/dl (74-100)
[2020-05-29 11:08] LABS: POC Glucose,Bedside 139 (70-110)
[2020-05-29 12:00] VITALS: PULSE 110
[2020-05-29 13:55] VITALS: BMI 34.7
--- NOTE | 2020-05-29 14:34 | PC.NURSE ---
pt has not wanted to participate in care much. did agree to turn q2hr but in between repositioning pt states i'm comfortable he is only alert to himself. report has been given to Juanis Blanchard RN
[2020-05-29 16:00] VITALS: BP 127/84; PULSE 110; PULSE 97; RESP 20; TEMP 36.7; O2SAT 98
[2020-05-29 16:40] LABS: POC Glucose,Bedside 105 (70-110)
[2020-05-29 20:00] VITALS: BP 160/100; PULSE 108; RESP 18; TEMP 36.7; O2SAT 99
--- NOTE | 2020-05-29 20:10 | PC.NURSE ---
No acute changes since receiving report on pt. CB in reach.
[2020-05-29 21:46] LABS: POC Glucose,Bedside 111 (70-110)
[2020-05-30] VITALS (11 sets, daily range): BP systolic 105–166; BP diastolic 57–96; PULSE 100–113; RESP 16–20; TEMP 36.4–37.1; O2SAT 91–100; BMI 35.2
--- NOTE | 2020-05-30 06:05 | PC.NURSE ---
A&O TO SELF AND PLACE. PT RESTLESS T/O SHIFT. CONFUSED T/O SHIFT AND BEING COMBATIVE WITH STAFF DURING TIMES OF CONFUSION. Q2H TURN. PROVIDED ORAL CARE Q2H, MOST HOURS PT REFUSED. RR NOTED EVEN AND UNLABORED. BILATERAL LUNGS NOTED CLEAR T/O UPON AUSCULTATION. TOLERATED 2 LNC WELL WITH NO C/O SOA. REMAINS INCONTINENT OF BOWEL AND BLADDER, WEARING BRIEF. ADEQUATE URINE OUTPUT NOTED. NO BM THUS FAR THIS SHIFT. VSS. HTN NOTED AT BEGINNING OF SHIFT, PT REMAINED ASYMPTOMATIC. RECHECKED MANUALLY B/P NOTED WNL. CONTINUE TO MONITOR. REMAINS SAFE. SEIZURE PRECAUTIONS IN PLACE. PT REMAINS FREE OF SEIZURES THIS SHIFT THUS FAR. CALL LIGHT WITHIN REACH. WILL CONTINUE TO MONITOR.
[2020-05-30 06:06] LABS: POC Glucose,Bedside 130 (70-110)
[2020-05-30 06:22] LABS: Chloride 124 mmol/L (98-107); Potassium 4.1 mmoL/L (3.5-5.1)
[2020-05-30 06:25] LABS: Anion Gap 16.1 mEq/L (5-15); Blood Urea Nitrogen 65 mg/dl (9-20); Calcium 9.2 mg/dl (8.4-10.2); Carbon Dioxide 14 mmol/L (22.0-30.0); Creatinine Clearance Estimated 32 mL/min (50-200); Estimated Glomerular Filt Rate 24 ml/min (>60); GFR (African American) 29 ML/MIN (>60); Glucose 125 mg/dl (74-100)
[2020-05-30 06:33] LABS: Sodium 150 mmol/L (136-145)
--- NOTE | 2020-05-30 06:59 | SW/DCPLANNER ---
Addendum entered by Amla Putnam 06/02/20 10:45: I have updated [facility] holm [place] regarding this patient. Addendum entered by Alma Putnam 05/30/20 10:28: Per Kaya holm [place] this patient is ICF level of care. Original Note: PATIENT IS A RESIDENT OF [facility] HERE IN [facility], HE PRESENTED INTO THE HOSPITAL WITH A UTI... HE WILL RETURN BACK TO HIS BED STATUS POST HIS ACUTE CARE STAY... PATIENT MAY BE READY TO DISCHARGE BACK THERE IN THE NEXT DAY OR TWO.. [facility] IS MEDICALLY READY TO DISCHARGE...
--- NOTE | 2020-05-30 07:00 | PC.NURSE ---
CRITICAL NA 150 REPORTED TO JAMI LARKIN. WILL REPORT TO THIS AM UPON ROUNDING.
[2020-05-30 07:24] LABS: Basophils % 0.4 % (0.1-2.0); Eosinophils # 0.2 K/mm3 (0.0-0.4); Eosinophils % 2.8 % (0.1-12.0); Hematocrit 32.5 % (42.0-52.0); Hemoglobin 10.2 g/dL (14.1-18.0); Lymphocytes # 0.7 K/mm3 (0.7-4.5); Lymphocytes % 8.7 % (10-50); Mean Corpuscular HGB Conc 31.4 g/dL (31.8-35.4); Mean Corpuscular Hemoglobin 31.4 pg (27.0-31.2); Mean Corpuscular Volume 99.9 fl (80-94); Mean Platelet Volume 8.5 fl (7.4-10.4); Monocytes # 0.7 K/mm3 (0.1-1.0); Monocytes % 9.4 % (1.7-9.3); Neutrophils # 6.2 K/mm3 (1.8-7.8); Neutrophils % 78.7 % (37.0-80.0); Platelet Count 209 K/mm3 (142-424); Red Blood Count 3.25 M/mm3 (4.60-6.20); Red Cell Distribution Width 15.1 % (11.5-17.5); White Blood Count 7.9 K/mm3 (4.8-10.8)
--- NOTE | 2020-05-30 08:43 | PC.NURSE ---
rounded with Dr. Vazquez and Dr. Razo. Informed them that Na level is 150 this morning.
--- NOTE | 2020-05-30 08:49 | HMH.ACPN2 ---
Internal Medicine - PN: Subj *Date: 05/30/20 *Time: 09:55 Interval history: 75-year-old male patient resting quietly in bed, opens eyes to verbal stimuli and answers questions appropriately. Creatinine down to 2.6, BUN 65 GFR up to 24 this a.m. sodium at 150 still receiving Diflucan for yeast in urine. Denies any needs at present time Exam Vital signs and Labs for Last 24 Hours: Temp Pulse Resp BP Pulse Ox 98.2 F 110 H 20 155/96 H 100 05/30/20 07:27 05/30/20 07:27 05/30/20 07:27 05/30/20 07:27 05/30/20 07:27 Laboratory Results - last 24 hr 05/29/20 09:58: WBC 7.9, RBC 3.31 L, Hgb 10.8 L, Hct 32.2 L, MCV 97.4 H, MCH 32.8 H, MCHC 33.7, RDW 15.0, Plt Count 199, MPV 8.7, Neut % (Auto) 79.6, Lymph % (Auto) 9.4 L, [place] % (Auto) 8.3, Eos % (Auto) 2.5, Baso % (Auto) 0.3, Neut # (Auto) 6.3, Lymph # (Auto) 0.7, [place] # (Auto) 0.7, Eos # (Auto) 0.2, Baso # (Auto) 0.0 05/29/20 09:58: Sodium 148 H, Potassium 4.1, Chloride 119 H, Carbon Dioxide 17 L, Anion Gap 16.1 H, BUN 73 H, Creatinine 2.80 H, Estimated Creat Clear 29, Estimated GFR 22 L, Est GFR ( Amer) 27 L, Glucose 130 H, Calcium 9.1 05/29/20 11:00: POC Glucose 139 H 05/29/20 16:19: POC Glucose 105 05/29/20 21:16: POC Glucose 111 H 05/30/20 05:51: WBC 7.9, RBC 3.25 L, Hgb 10.2 L, Hct 32.5 L, MCV 99.9 H, MCH 31.4 H, MCHC 31.4 L, RDW 15.1, Plt Count 209, MPV 8.5, Neut % (Auto) 78.7, Lymph % (Auto) 8.7 L, [place] % (Auto) 9.4 H, Eos % (Auto) 2.8, Baso % (Auto) 0.4, Neut # (Auto) 6.2, Lymph # (Auto) 0.7, [place] # (Auto) 0.7, Eos # (Auto) 0.2, Baso # (Auto) 0.0 05/30/20 05:51: Sodium 150 H, Potassium 4.1, Chloride 124 H, Carbon Dioxide 14 L, Anion Gap 16.1 H, BUN 65 H, Creatinine 2.60 H, Estimated Creat Clear 32, Estimated GFR 24 L, Est GFR ( Amer) 29 L, Glucose 125 H, Calcium 9.2 05/30/20 05:56: POC Glucose 130 H I & O for Last 24 hours: Intake & Output 05/27/20 05/28/20 05/29/20 05/30/20 23:59 23:59 23:59 23:59 Intake Total 240 / 240 2769 / 2769 1624 / 1624 891 / 891 Output Total 1400 / 1875 1125 / 1125 Balance 240 / 240 1369 / 894 499 / 499 891 / 891 Weight 193 lb 5 oz 195 lb 4 oz 196 lb 3.382 oz 198 lb 8 oz Microbiology Reports for the Last 24 Hours: Microbiology 05/27/20 07:35 Urine,Catheterized Urine Culture - Final Yeast 05/27/20 07:30 Blood Blood Culture - Preliminary NO GROWTH AFTER 48 HOURS 05/27/20 07:30 Blood Blood Culture - Preliminary NO GROWTH AFTER 48 HOURS - Constitutional no acute distress, chronically ill appearing - *Routine HEENT Exam Head: Present: normocephalic ENT: Present: mucous membranes moist. Absent: sinus tenderness - *Routine Neck Exam Present: trachea midline. Absent: JVD, tracheal deviation - *Routine Respiratory Exam Present: decreased breath sounds - *Routine Cardiovascular Exam Present: RRR, murmur - *Routine Abdominal Exam Present: soft, normoactive bowel sounds, obese. Absent: tenderness, firm - *Routine Extremities Exam Present: pulses intact. Absent: calf tenderness - *Routine Skin Exam Present: intact - *Routine Neurological Exam Present: alert - Routine Psychiatric Exam Present: unable to assess Assessment and Plan (1) BRITTNI (acute kidney injury) Current visit: Yes Status: Acute Category: Medical Code(s): N17.9 - Acute kidney failure, unspecified (2) Hypothyroid Current visit: Yes Status: Acute Qualifiers: Hypothyroidism type: acquired Qualified Code(s): E03.9 - Hypothyroidism, unspecified Category: Medical Code(s): E03.9 - Hypothyroidism, unspecified (3) SIRS (systemic inflammatory response syndrome) Current visit: Yes Status: Acute Category: Medical Code(s): R65.10 - Systemic inflammatory response syndrome (SIRS) of non-infectious origin without acute organ dysfunction (4) UTI (urinary tract infection) Current visit: Yes Status: Acute Quali
[2020-05-30 11:25] LABS: POC Glucose,Bedside 125 (70-110)
[2020-05-30 17:06] LABS: POC Glucose,Bedside 137 (70-110)
--- NOTE | 2020-05-30 19:36 | PC.NURSE ---
No issues this shift. Pt with garbled speech and is difficult to understand. No seizures this shift. Has bed alarm. Tolerates a DM diet. Did not require SSI coverage today.
[2020-05-30 21:10] LABS: POC Glucose,Bedside 128 (70-110)
[2020-05-31 04:00] VITALS: BP 180/110; PULSE 109; RESP 14; TEMP 36.6; O2SAT 100
[2020-05-31 05:00] VITALS: BMI 33.9
[2020-05-31 05:27] VITALS: O2SAT 98
[2020-05-31 06:11] LABS: Basophils % 0.4 % (0.1-2.0); Eosinophils # 0.2 K/mm3 (0.0-0.4); Eosinophils % 2.4 % (0.1-12.0); Lymphocytes # 0.6 K/mm3 (0.7-4.5); Lymphocytes % 8.2 % (10-50); Mean Corpuscular HGB Conc 32.3 g/dL (31.8-35.4); Mean Corpuscular Hemoglobin 32.3 pg (27.0-31.2); Mean Platelet Volume 8.4 fl (7.4-10.4); Monocytes # 0.6 K/mm3 (0.1-1.0); Monocytes % 7.5 % (1.7-9.3); Neutrophils # 6.1 K/mm3 (1.8-7.8); Neutrophils % 81.4 % (37.0-80.0); Platelet Count 202 K/mm3 (142-424); Potassium 4.2 mmoL/L (3.5-5.1); Red Cell Distribution Width 14.8 % (11.5-17.5); White Blood Count 7.5 K/mm3 (4.8-10.8)
[2020-05-31 06:13] LABS: Blood Urea Nitrogen 59 mg/dl (9-20); Creatinine Clearance Estimated 32 mL/min (50-200); Estimated Glomerular Filt Rate 25 ml/min (>60); GFR (African American) 31 ML/MIN (>60)
[2020-05-31 06:14] LABS: Anion Gap 18.2 mEq/L (5-15); Calcium 9.4 mg/dl (8.4-10.2); Carbon Dioxide 13 mmol/L (22.0-30.0); Glucose 129 mg/dl (74-100)
[2020-05-31 06:21] LABS: Chloride 127 mmol/L (98-107); Sodium 154 mmol/L (136-145)
[2020-05-31 06:54] LABS: POC Glucose,Bedside 119 (70-110)
--- NOTE | 2020-05-31 06:59 | PC.NURSE ---
PT IS ALERT TO SELF THIS SHIFT. UNABLE TO STATE CURRENT YEAR OR LOCATION, IN RESPONSE TO THOSE QUESTIONS PT STATES I DO NOT NEED TO ANSWER THOSE STUPID QUESTIONS. AGITATION NOTED AT TIMES. SPEECH NOTED MUMBLED AND INAPPROPRIATE AT TIMES. OUTSIDE MACHINIST HELPER EQUAL BILAT, MOVEMENT OF ALL 4 LIMBS NOTED INTACT. PT COMBATIVE WITH STAFF AND CURSED AT STAFF WHILE TRYING TO REPOSITION. SEIZURE PRECAUTIONS REMAINED IN PLACE. LUNGS NOTED CLEAR T/O AUSCULTATION. ABDOMEN NOTED NONDISTENDED, ACTIVE BOWEL SOUNDS, SOFT AND NONTENDER PER PALPATION. PULSES +2. SKIN COOL PER PALPATION ON ASSESSMENT AT BEGINNING OF SHIFT. SCATTERED BRUISING AND SCABS NOTED ON SKIN ASSESSMENT. 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 ORAL CARE PROVIDED THIS SHIFT. TURNING AND REPOSITIONING Q2H. VSS. WILL CONTINUE TO MONITOR.
[2020-05-31 08:00] VITALS: BP 160/105; PULSE 109; RESP 16; TEMP 36.8; O2SAT 99
--- NOTE | 2020-05-31 09:15 | HMH.ACPN2 ---
Internal Medicine - PN: Subj *Date: 05/31/20 *Time: 13:23 Interval history: 75-year-old male patient resting quietly awakens to verbal stimuli. Reports he is feeling a little better, encouraged to be out of bed more and especially up in chair for all meals. Sodium today is 154, BUN is 59 and creatinine is 2.5 Exam Vital signs and Labs for Last 24 Hours: Temp Pulse Resp BP Pulse Ox 98.2 F 109 H 16 160/105 H 99 05/31/20 08:00 05/31/20 08:00 05/31/20 08:00 05/31/20 08:00 05/31/20 08:00 Laboratory Results - last 24 hr 05/30/20 11:09: POC Glucose 125 H 05/30/20 16:59: POC Glucose 137 H 05/30/20 21:01: POC Glucose 128 H 05/31/20 05:35: WBC 7.5, RBC 3.40 L, Hgb 11.0 L, Hct 34.0 L, MCV 100.0 H, MCH 32.3 H, MCHC 32.3, RDW 14.8, Plt Count 202, MPV 8.4, Neut % (Auto) 81.4 H, Lymph % (Auto) 8.2 L, [place] % (Auto) 7.5, Eos % (Auto) 2.4, Baso % (Auto) 0.4, Neut # (Auto) 6.1, Lymph # (Auto) 0.6 L, [place] # (Auto) 0.6, Eos # (Auto) 0.2, Baso # (Auto) 0.0 05/31/20 05:35: Sodium 154 H*, Potassium 4.2, Chloride 127 H, Carbon Dioxide 13 L, Anion Gap 18.2 H, BUN 59 H, Creatinine 2.50 H, Estimated Creat Clear 32, Estimated GFR 25 L, Est GFR ( Amer) 31 L, Glucose 129 H, Calcium 9.4 05/31/20 06:46: POC Glucose 119 H I & O for Last 24 hours: Intake & Output 05/28/20 05/29/20 05/30/20 05/31/20 23:59 23:59 23:59 23:59 Intake Total 2769 / 2769 1624 / 1624 195 / 195 667 / 667 Output Total 1400 / 1875 1125 / 1125 Balance 1369 / 894 499 / 499 1950 / 1950 667 / 667 Weight 195 lb 4 oz 196 lb 3.382 oz 198 lb 8 oz 191 lb 7 oz - Constitutional no acute distress, obese - *Routine HEENT Exam Head: Present: normocephalic ENT: Present: mucous membranes moist - *Routine Neck Exam Present: trachea midline. Absent: JVD, tracheal deviation - *Routine Respiratory Exam Present: decreased breath sounds - *Routine Cardiovascular Exam Present: RRR, murmur - *Routine Abdominal Exam Present: soft, normoactive bowel sounds, obese. Absent: tenderness, firm - *Routine Extremities Exam Present: pulses intact, MAURO stockings. Absent: edema, calf tenderness - *Routine Skin Exam Present: intact, warm. Absent: erythema Comments: Multiple scabbed areas BLE - *Routine Neurological Exam Present: alert - Routine Psychiatric Exam Present: unable to assess Assessment and Plan (1) BRITTNI (acute kidney injury) Current visit: Yes Status: Acute Category: Medical Code(s): N17.9 - Acute kidney failure, unspecified (2) Hypothyroid Current visit: Yes Status: Acute Qualifiers: Hypothyroidism type: acquired Qualified Code(s): E03.9 - Hypothyroidism, unspecified Category: Medical Code(s): E03.9 - Hypothyroidism, unspecified (3) SIRS (systemic inflammatory response syndrome) Current visit: Yes Status: Acute Category: Medical Code(s): R65.10 - Systemic inflammatory response syndrome (SIRS) of non-infectious origin without acute organ dysfunction (4) UTI (urinary tract infection) Current visit: Yes Status: Acute Qualifiers: Urinary tract infection type: site unspecified Hematuria presence: without hematuria Qualified Code(s): N39.0 - Urinary tract infection, site not specified Category: Medical Code(s): N39.0 - Urinary tract infection, site not specified (5) Obesity (BMI 30-39.9) Current visit: Yes Status: Chronic Category: Medical Code(s): E66.9 - Obesity, unspecified (6) CHF (congestive heart failure) Current visit: No Status: Acute Qualifiers: Heart failure type: combined systolic and diastolic Heart failure chronicity: acute on chronic Qualified Code(s): I50.43 - Acute on chronic combined systolic (congestive) and diastolic (congestive) heart failure Category: Medical Code(s): I50.9 - Heart failure, unspecified (7) Yeast UTI Current visit: Yes Status: Acute Category: Medical Code(s): B37.49 - Other urogenital candidiasis - Assessment and
[2020-05-31 11:44] LABS: POC Glucose,Bedside 125 (70-110)
--- NOTE | 2020-05-31 13:22 | XR_ITS ---
PROCEDURE: XR CHEST PORTABLE CLINICAL HISTORY: SOA, COMPARISON: CR XR CHEST PORTABLE PICC PLAC from 01/05/[address] CHEST WO CON from 02/04/2020 CR XR CHEST PORTABLE from 02/04/2020 CR XR CHEST AP from 05/27/2020 FINDINGS: The patient is tilted toward the left. There is cardiomegaly without failure. The lungs are clear without infiltrates, suspicious nodules, or pleural effusions. 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 IMPRESSION: Cardiomegaly otherwise negative Dictated b Cameron Daniels MD 05/31/2020 14:15 Cameron Daniels MD in [facility] 05/31/2020 14:15
--- NOTE | 2020-05-31 14:03 | HMH.ACPN ---
Internal Medicine - PN: Subj *Date: 05/31/20 *Time: 14:03 Exam Vital signs and Labs for Last 24 Hours: Temp Pulse Resp BP Pulse Ox 98.2 F 109 H 16 160/105 H 99 05/31/20 08:00 05/31/20 08:00 05/31/20 08:00 05/31/20 08:00 05/31/20 08:00 Laboratory Results - last 24 hr 05/30/20 16:59: POC Glucose 137 H 05/30/20 21:01: POC Glucose 128 H 05/31/20 05:35: WBC 7.5, RBC 3.40 L, Hgb 11.0 L, Hct 34.0 L, MCV 100.0 H, MCH 32.3 H, MCHC 32.3, RDW 14.8, Plt Count 202, MPV 8.4, Neut % (Auto) 81.4 H, Lymph % (Auto) 8.2 L, [place] % (Auto) 7.5, Eos % (Auto) 2.4, Baso % (Auto) 0.4, Neut # (Auto) 6.1, Lymph # (Auto) 0.6 L, [place] # (Auto) 0.6, Eos # (Auto) 0.2, Baso # (Auto) 0.0 05/31/20 05:35: Sodium 154 H*, Potassium 4.2, Chloride 127 H, Carbon Dioxide 13 L, Anion Gap 18.2 H, BUN 59 H, Creatinine 2.50 H, Estimated Creat Clear 32, Estimated GFR 25 L, Est GFR ( Amer) 31 L, Glucose 129 H, Calcium 9.4 05/31/20 06:46: POC Glucose 119 H 05/31/20 11:35: POC Glucose 125 H I & O for Last 24 hours: Intake & Output 05/28/20 05/29/20 05/30/20 05/31/20 23:59 23:59 23:59 23:59 Intake Total 2769 / 2769 1624 / 1624 1950 1027 / 1027 Output Total 1400 / 1875 1125 / 1125 Balance 1369 / 894 499 / 499 1950 1027 / 1027 Weight 88.564 kg 89 kg 90.038 kg 86.835 kg Assessment and Plan (1) BRITTNI (acute kidney injury) Current visit: Yes Status: Acute Category: Medical Code(s): N17.9 - Acute kidney failure, unspecified (2) Hypothyroid Current visit: Yes Status: Acute Qualifiers: Hypothyroidism type: acquired Qualified Code(s): E03.9 - Hypothyroidism, unspecified Category: Medical Code(s): E03.9 - Hypothyroidism, unspecified (3) SIRS (systemic inflammatory response syndrome) Current visit: Yes Status: Acute Category: Medical Code(s): R65.10 - Systemic inflammatory response syndrome (SIRS) of non-infectious origin without acute organ dysfunction (4) UTI (urinary tract infection) Current visit: Yes Status: Acute Qualifiers: Urinary tract infection type: site unspecified Hematuria presence: without hematuria Qualified Code(s): N39.0 - Urinary tract infection, site not specified Category: Medical Code(s): N39.0 - Urinary tract infection, site not specified (5) Obesity (BMI 30-39.9) Current visit: Yes Status: Chronic Category: Medical Code(s): E66.9 - Obesity, unspecified (6) CHF (congestive heart failure) Current visit: No Status: Acute Qualifiers: Heart failure type: combined systolic and diastolic Heart failure chronicity: acute on chronic Qualified Code(s): I50.43 - Acute on chronic combined systolic (congestive) and diastolic (congestive) heart failure Category: Medical Code(s): I50.9 - Heart failure, unspecified (7) Yeast UTI Current visit: Yes Status: Acute Category: Medical Code(s): B37.49 - Other urogenital candidiasis The patient's infection will respond to the chosen ABx?: Yes Is the patient receiving the right drug, dose, and route?: Yes Could a more targeted ABx be ordered?: No (UTI WITH YEAST, ON FLUCONAZOLE)
--- NOTE | 2020-05-31 15:30 | PC.NURSE ---
pt up to chair. No issues noted.
[2020-05-31 16:00] VITALS: BP 162/102; PULSE 101; RESP 18; TEMP 36.4; O2SAT 99
[2020-05-31 16:30] LABS: POC Glucose,Bedside 114 (70-110)
--- NOTE | 2020-05-31 16:51 | PC.NURSE ---
Pt stable this shift. Speech is more comprehensible today. He is appropriate and not combative. Got up to chair with 3 person assist. He is unable to assist staff. Meds are crushed and given in pudding. Tolerates thin liquids. O2 weaned off early this AM. Has tolerated RA well. Has not required SSI.
[2020-05-31 20:00] VITALS: BP 162/107; PULSE 110; RESP 16; TEMP 36.4; O2SAT 99
[2020-05-31 21:10] VITALS: PULSE 110
[2020-05-31 21:27] LABS: POC Glucose,Bedside 121 (70-110)
[2020-06-01] VITALS: BP 158/92; PULSE 126; RESP 12; TEMP 36.4; O2SAT 99
--- NOTE | 2020-06-01 03:43 | PC.NURSE ---
ALERT TO SELFT. UNABLE TO STATE CURRENT LOCATION OR CURRENT YEAR. SAND BUFFER EQUAL BILAT. PERRLA NOTED. PT WAS COOPERATIVE WITH CARE AND PLEASANT WITH STAFF THIS SHIFT. TOLERATED RA WELL. LUNGS NOTED CLEAR T/O AUSCULTATION. ABDOMEN NOTED NONDISTENDED, ACTIVE BOWEL SOUNDS, SOFT AND NONTENDER PER PALPATION. PULSES +2. SCATTERED BRUISING AND SCABS NOTED THIS SHIFT, ONE OF PT'S SCABS BECAME OPEN AND BLOODY DRAINAGE WAS NOTED, BANDAID APPLIED. SEIZURE PRECAUTIONS MAINTAINED. PT HAS BEEN TURNED AND REPOSITIONED Q2H THIS SHIFT. ORAL CARE PROVIDED. VSS. WILL CONTINUE TO MONITOR.
[2020-06-01 04:00] VITALS: BP 148/86; PULSE 99; RESP 14; TEMP 36.7; O2SAT 100
[2020-06-01 05:00] VITALS: BMI 34.9
[2020-06-01 06:06] LABS: Basophils % 0.3 % (0.1-2.0); Eosinophils # 0.4 K/mm3 (0.0-0.4); Eosinophils % 3.6 % (0.1-12.0); Hematocrit 31.9 % (42.0-52.0); Hemoglobin 10.3 g/dL (14.1-18.0); Lymphocytes # 0.8 K/mm3 (0.7-4.5); Lymphocytes % 8.6 % (10-50); Mean Corpuscular HGB Conc 32.2 g/dL (31.8-35.4); Mean Corpuscular Hemoglobin 32.1 pg (27.0-31.2); Mean Corpuscular Volume 99.6 fl (80-94); Monocytes # 0.7 K/mm3 (0.1-1.0); Monocytes % 7.5 % (1.7-9.3); Neutrophils # 7.7 K/mm3 (1.8-7.8); Platelet Count 188 K/mm3 (142-424); Red Blood Count 3.21 M/mm3 (4.60-6.20); White Blood Count 9.7 K/mm3 (4.8-10.8)
[2020-06-01 06:09] LABS: Chloride 120 mmol/L (98-107); Potassium 3.7 mmoL/L (3.5-5.1); Sodium 145 mmol/L (136-145)
[2020-06-01 06:12] LABS: Anion Gap 15.7 mEq/L (5-15); Blood Urea Nitrogen 50 mg/dl (9-20); Calcium 8.6 mg/dl (8.4-10.2); Carbon Dioxide 13 mmol/L (22.0-30.0); Creatinine Clearance Estimated 38 mL/min (50-200); Estimated Glomerular Filt Rate 31 ml/min (>60); GFR (African American) 38 ML/MIN (>60); Glucose 104 mg/dl (74-100)
[2020-06-01 07:32] VITALS: BP 154/92; PULSE 104; RESP 22; TEMP 36.6; O2SAT 100
[2020-06-01 07:32] LABS: POC Glucose,Bedside 111 (70-110)
--- NOTE | 2020-06-01 08:23 | PC.NURSE ---
Did make Dr. Razo/ Randall Bradley aware of positive blood cx 0845.
--- NOTE | 2020-06-01 08:59 | HMH.ACPN2 ---
Internal Medicine - PN: Subj *Date: 06/01/20 *Time: 08:10 Interval history: pt states he is doing well, per staff was up in chair yesterday Exam Vital signs and Labs for Last 24 Hours: Temp Pulse Resp BP Pulse Ox 97.9 F 104 H 22 154/92 H 100 06/01/20 07:32 06/01/20 07:32 06/01/20 07:32 06/01/20 07:32 06/01/20 07:32 Laboratory Results - last 24 hr 05/31/20 11:35: POC Glucose 125 H 05/31/20 16:18: POC Glucose 114 H 05/31/20 21:10: POC Glucose 121 H 06/01/20 05:45: WBC 9.7 D, RBC 3.21 L, Hgb 10.3 L, Hct 31.9 L, MCV 99.6 H, MCH 32.1 H, MCHC 32.2, RDW 15.0, Plt Count 188, MPV 8.0, Neut % (Auto) 80.0, Lymph % (Auto) 8.6 L, [place] % (Auto) 7.5, Eos % (Auto) 3.6, Baso % (Auto) 0.3, Neut # (Auto) 7.7, Lymph # (Auto) 0.8, [place] # (Auto) 0.7, Eos # (Auto) 0.4, Baso # (Auto) 0.0 06/01/20 05:45: Sodium 145, Potassium 3.7, Chloride 120 H, Carbon Dioxide 13 L, Anion Gap 15.7 H, BUN 50 H, Creatinine 2.10 H, Estimated Creat Clear 38, Estimated GFR 31 L, Est GFR ( Amer) 38 L D, Glucose 104 H, Calcium 8.6 06/01/20 06:41: POC Glucose 111 H I & O for Last 24 hours: Intake & Output 05/29/20 05/30/20 05/31/20 06/01/20 11:59 11:59 11:59 11:59 Intake Total 1962 / 1962 1251 / 1251 1727 / 1727 3519 / 3519 Output Total 1725 / 1725 Balance 238 / 238 1251 / 1251 1727 / 1727 3519 / 3519 Weight 196 lb 7 oz 198 lb 8 oz 191 lb 7 oz 197 lb 7 oz Microbiology Reports for the Last 24 Hours: Microbiology 05/27/20 07:30 Blood Blood Culture - Final NO GROWTH AFTER 5 DAYS 05/27/20 07:30 Blood Blood Culture - Preliminary - Constitutional no acute distress, obese, chronically ill appearing - *Routine HEENT Exam Head: Present: normocephalic Eye: Present: PERRL ENT: Present: mucous membranes moist - *Routine Neck Exam Present: supple. Absent: lymphadenopathy - *Routine Respiratory Exam Present: CTA bilaterally - *Routine Cardiovascular Exam Present: RRR - *Routine Abdominal Exam Present: soft, normoactive bowel sounds. Absent: tenderness - *Routine Extremities Exam Present: normal capillary refill. Absent: cyanosis, clubbing, edema Comments: three fingers on rt hand - *Routine Skin Exam Present: warm. Absent: rash Comments: scattered scabs to martin arms and legs - *Routine Neurological Exam Present: alert, oriented X3 - Routine Psychiatric Exam Present: normal affect Assessment and Plan (1) BRITTNI (acute kidney injury) Current visit: Yes Status: Acute Category: Medical Code(s): N17.9 - Acute kidney failure, unspecified (2) Hypothyroid Current visit: Yes Status: Acute Qualifiers: Hypothyroidism type: acquired Qualified Code(s): E03.9 - Hypothyroidism, unspecified Category: Medical Code(s): E03.9 - Hypothyroidism, unspecified (3) SIRS (systemic inflammatory response syndrome) Current visit: Yes Status: Acute Category: Medical Code(s): R65.10 - Systemic inflammatory response syndrome (SIRS) of non-infectious origin without acute organ dysfunction (4) UTI (urinary tract infection) Current visit: Yes Status: Acute Qualifiers: Urinary tract infection type: site unspecified Hematuria presence: without hematuria Qualified Code(s): N39.0 - Urinary tract infection, site not specified Category: Medical Code(s): N39.0 - Urinary tract infection, site not specified (5) Obesity (BMI 30-39.9) Current visit: Yes Status: Chronic Category: Medical Code(s): E66.9 - Obesity, unspecified (6) CHF (congestive heart failure) Current visit: No Status: Acute Qualifiers: Heart failure type: combined systolic and diastolic Heart failure chronicity: acute on chronic Qualified Code(s): I50.43 - Acute on chronic combined systolic (congestive) and diastolic (congestive) heart failure Category: Medical Code(s): I50.9 - Heart failure, unspecified (7) Yeast UTI Current visit: Yes Status: Acute Categ
--- NOTE | 2020-06-01 10:42 | PC.NURSE ---
PT WEIGHT IS 205.1. BED SCALE #7504
[2020-06-01 12:29] LABS: POC Glucose,Bedside 101 (70-110)
[2020-06-01 15:35] VITALS: BP 181/100; PULSE 111; RESP 22; TEMP 36.7; O2SAT 100
[2020-06-01 17:07] LABS: POC Glucose,Bedside 102 (70-110)
--- NOTE | 2020-06-01 18:46 | PC.NURSE ---
Pt did have elevated bp this afternoon, made Dr. Blanchard aware and he did order a x 1 dose of 10 mg amlodipine. Pt is alert to self. NAD. Pallor, H&H is stable. CB in reach. Pt has been repositioned in bed this shift. Pt requires lift to be safely transferred, lift unavailable at this time. MX continues. RA, IV ABT.
[2020-06-01 18:55] VITALS: BP 158/94
[2020-06-01 19:47] VITALS: BP 165/78; PULSE 114; RESP 18; TEMP 36.6; O2SAT 100
[2020-06-01 21:25] LABS: POC Glucose,Bedside 121 (70-110)
[2020-06-02 04:03] VITALS: BP 150/84; PULSE 109; RESP 18; TEMP 36.5; O2SAT 100; BMI 34.9
--- NOTE | 2020-06-02 04:18 | PC.NURSE ---
ABLE TO STATE NAME, , PLACE AND YEAR; ABLE TO FOLLOW COMMANDS. PT. HAS NOT C/O PAIN, N/V/D, DIZZINESS OR SOA. SAFETY AND SEIZURE PRECAUTIONS CONTINUE.
[2020-06-02 05:51] LABS: POC Glucose,Bedside 116 (70-110)
[2020-06-02 05:55] LABS: Basophils % 0.4 % (0.1-2.0); Eosinophils # 0.4 K/mm3 (0.0-0.4); Eosinophils % 4.9 % (0.1-12.0); Hematocrit 31.4 % (42.0-52.0); Hemoglobin 10.5 g/dL (14.1-18.0); Lymphocytes # 0.7 K/mm3 (0.7-4.5); Lymphocytes % 9.5 % (10-50); Mean Corpuscular HGB Conc 33.4 g/dL (31.8-35.4); Mean Corpuscular Hemoglobin 32.5 pg (27.0-31.2); Mean Corpuscular Volume 97.4 fl (80-94); Mean Platelet Volume 7.9 fl (7.4-10.4); Monocytes # 0.5 K/mm3 (0.1-1.0); Monocytes % 6.8 % (1.7-9.3); Neutrophils # 6.1 K/mm3 (1.8-7.8); Neutrophils % 78.4 % (37.0-80.0); Platelet Count 185 K/mm3 (142-424); Red Blood Count 3.22 M/mm3 (4.60-6.20); Red Cell Distribution Width 15.4 % (11.5-17.5); White Blood Count 7.7 K/mm3 (4.8-10.8)
[2020-06-02 05:56] LABS: Chloride 122 mmol/L (98-107); Potassium 3.6 mmoL/L (3.5-5.1); Sodium 144 mmol/L (136-145)
[2020-06-02 05:59] LABS: Blood Urea Nitrogen 45 mg/dl (9-20); Creatinine Clearance Estimated 43 mL/min (50-200); Estimated Glomerular Filt Rate 35 ml/min (>60); GFR (African American) 42 ML/MIN (>60)
[2020-06-02 06:00] LABS: Anion Gap 11.6 mEq/L (5-15); Calcium 8.7 mg/dl (8.4-10.2); Carbon Dioxide 14 mmol/L (22.0-30.0); Glucose 109 mg/dl (74-100)
--- NOTE | 2020-06-02 06:33 | PC.NURSE ---
All care and charting by Sen Rothman was completed under my direct supervision.
[2020-06-02 08:00] VITALS: BP 144/74; PULSE 108; RESP 20; TEMP 36.4; O2SAT 100
[2020-06-02 08:20] VITALS: PULSE 108; O2SAT 100
--- NOTE | 2020-06-02 09:11 | HMH.ACPN2 ---
Internal Medicine - PN: Subj *Date: 06/02/20 *Time: 08:00 Interval history: waiting cx results Exam Vital signs and Labs for Last 24 Hours: Temp Pulse Resp BP Pulse Ox 97.5 F L 108 H 20 144/74 H 100 06/02/20 08:00 06/02/20 08:20 06/02/20 08:00 06/02/20 08:00 06/02/20 08:20 Laboratory Results - last 24 hr 06/01/20 12:14: POC Glucose 101 06/01/20 16:58: POC Glucose 102 06/01/20 21:11: POC Glucose 121 H 06/02/20 05:21: POC Glucose 116 H 06/02/20 05:32: WBC 7.7, RBC 3.22 L, Hgb 10.5 L, Hct 31.4 L, MCV 97.4 H, MCH 32.5 H, MCHC 33.4, RDW 15.4, Plt Count 185, MPV 7.9, Neut % (Auto) 78.4, Lymph % (Auto) 9.5 L, [place] % (Auto) 6.8, Eos % (Auto) 4.9, Baso % (Auto) 0.4, Neut # (Auto) 6.1, Lymph # (Auto) 0.7, [place] # (Auto) 0.5, Eos # (Auto) 0.4, Baso # (Auto) 0.0 06/02/20 05:32: Sodium 144, Potassium 3.6, Chloride 122 H, Carbon Dioxide 14 L, Anion Gap 11.6, BUN 45 H, Creatinine 1.90 H, Estimated Creat Clear 43, Estimated GFR 35 L, Est GFR ( Amer) 42 L, Glucose 109 H, Calcium 8.7 I & O for Last 24 hours: Intake & Output 05/30/20 05/31/20 06/01/20 06/02/20 11:59 11:59 11:59 11:59 Intake Total 1251 / 1251 1727 / 1727 3519 / 3519 1695 / 1695 Balance 1251 / 1251 1727 / 1727 3519 / 3519 1695 / 1695 Weight 198 lb 8 oz 191 lb 7 oz 197 lb 7 oz 197 lb 5.019 oz Microbiology Reports for the Last 24 Hours: Microbiology 05/27/20 07:30 Blood Blood Culture - Preliminary 05/27/20 07:30 Blood Blood Culture - Final NO GROWTH AFTER 5 DAYS - Constitutional no acute distress, obese, chronically ill appearing - *Routine HEENT Exam Head: Present: normocephalic Eye: Present: PERRL ENT: Present: mucous membranes moist - *Routine Neck Exam Present: supple. Absent: lymphadenopathy - *Routine Respiratory Exam Present: CTA bilaterally - *Routine Cardiovascular Exam Present: RRR, tachycardia - *Routine Abdominal Exam Present: soft, normoactive bowel sounds. Absent: tenderness - *Routine Extremities Exam Present: normal capillary refill. Absent: cyanosis, clubbing, edema - *Routine Skin Exam Present: warm. Absent: rash Comments: scattered scabbs to arms and legs - *Routine Neurological Exam Present: alert, oriented X3 - Routine Psychiatric Exam Present: normal affect Assessment and Plan (1) BRITTNI (acute kidney injury) Current visit: Yes Status: Acute Category: Medical Code(s): N17.9 - Acute kidney failure, unspecified (2) Hypothyroid Current visit: Yes Status: Acute Qualifiers: Hypothyroidism type: acquired Qualified Code(s): E03.9 - Hypothyroidism, unspecified Category: Medical Code(s): E03.9 - Hypothyroidism, unspecified (3) SIRS (systemic inflammatory response syndrome) Current visit: Yes Status: Acute Category: Medical Code(s): R65.10 - Systemic inflammatory response syndrome (SIRS) of non-infectious origin without acute organ dysfunction (4) UTI (urinary tract infection) Current visit: Yes Status: Acute Qualifiers: Urinary tract infection type: site unspecified Hematuria presence: without hematuria Qualified Code(s): N39.0 - Urinary tract infection, site not specified Category: Medical Code(s): N39.0 - Urinary tract infection, site not specified (5) Obesity (BMI 30-39.9) Current visit: Yes Status: Chronic Category: Medical Code(s): E66.9 - Obesity, unspecified (6) CHF (congestive heart failure) Current visit: No Status: Acute Qualifiers: Heart failure type: combined systolic and diastolic Heart failure chronicity: acute on chronic Qualified Code(s): I50.43 - Acute on chronic combined systolic (congestive) and diastolic (congestive) heart failure Category: Medical Code(s): I50.9 - Heart failure, unspecified (7) Yeast UTI Current visit: Yes Status: Acute Category: Medical Code(s): B37.49 - Other urogenital candidiasis - Assessment and plan all Dx Assessment
[2020-06-02 11:11] LABS: POC Glucose,Bedside 200 (70-110)
[2020-06-02 15:34] VITALS: BP 154/87; PULSE 103; RESP 16; TEMP 36.6; O2SAT 100
[2020-06-02 16:17] LABS: POC Glucose,Bedside 140 (70-110)
[2020-06-02 16:36] VITALS: O2SAT 99
[2020-06-02 20:00] VITALS: BP 159/94; PULSE 111; RESP 22; TEMP 36.8; O2SAT 99
[2020-06-02 21:34] LABS: POC Glucose,Bedside 121 (70-110)
[2020-06-03 04:00] VITALS: BP 160/90; PULSE 107; RESP 16; TEMP 36.5; O2SAT 97
--- NOTE | 2020-06-03 04:24 | PC.NURSE ---
PT. ABLE TO STATE NAME, , YEAR; UNABLE TO CORRECTLY STATE LOCATION; REORIENTS EASILY. 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 NO C/O PAIN, N/V/D, DIZZINESS OR SOA.
[2020-06-03 05:00] VITALS: BMI 38.5
[2020-06-03 06:23] LABS: Basophils % 0.5 % (0.1-2.0); Eosinophils # 0.3 K/mm3 (0.0-0.4); Eosinophils % 4.7 % (0.1-12.0); Hematocrit 30.4 % (42.0-52.0); Hemoglobin 9.9 g/dL (14.1-18.0); Lymphocytes # 0.8 K/mm3 (0.7-4.5); Lymphocytes % 11.1 % (10-50); Mean Corpuscular HGB Conc 32.7 g/dL (31.8-35.4); Mean Corpuscular Hemoglobin 31.4 pg (27.0-31.2); Mean Corpuscular Volume 96.2 fl (80-94); Mean Platelet Volume 8.6 fl (7.4-10.4); Monocytes # 0.5 K/mm3 (0.1-1.0); Monocytes % 7.6 % (1.7-9.3); Neutrophils # 5.2 K/mm3 (1.8-7.8); Neutrophils % 76.1 % (37.0-80.0); Platelet Count 170 K/mm3 (142-424); Red Blood Count 3.16 M/mm3 (4.60-6.20); Red Cell Distribution Width 15.2 % (11.5-17.5); White Blood Count 6.8 K/mm3 (4.8-10.8)
[2020-06-03 06:40] LABS: Chloride 123 mmol/L (98-107)
[2020-06-03 06:41] LABS: Potassium 3.7 mmoL/L (3.5-5.1); Sodium 144 mmol/L (136-145)
[2020-06-03 06:43] LABS: Blood Urea Nitrogen 39 mg/dl (9-20); Creatinine Clearance Estimated 50 mL/min (50-200); Estimated Glomerular Filt Rate 37 ml/min (>60); GFR (African American) 45 ML/MIN (>60)
[2020-06-03 06:44] LABS: Anion Gap 11.7 mEq/L (5-15); Calcium 8.5 mg/dl (8.4-10.2); Carbon Dioxide 13 mmol/L (22.0-30.0); Glucose 114 mg/dl (74-100)
[2020-06-03 07:23] LABS: POC Glucose,Bedside 118 (70-110)
[2020-06-03 08:00] VITALS: BP 154/86; PULSE 105; RESP 17; TEMP 36.6; O2SAT 98; O2SAT 99
--- NOTE | 2020-06-03 08:05 | HMH.ACPN2 ---
Internal Medicine - PN: Subj *Date: 06/03/20 *Time: 08:05 Interval history: looks better - renal function better - Exam Vital signs and Labs for Last 24 Hours: Temp Pulse Resp BP Pulse Ox 97.9 F 105 H 17 154/86 H 98 06/03/20 08:00 06/03/20 08:00 06/03/20 08:00 06/03/20 08:00 06/03/20 08:00 Laboratory Results - last 24 hr 06/02/20 10:51: POC Glucose 200 H 06/02/20 15:51: POC Glucose 140 H 06/02/20 21:21: POC Glucose 121 H 06/03/20 05:15: POC Glucose 118 H 06/03/20 05:55: WBC 6.8, RBC 3.16 L, Hgb 9.9 L, Hct 30.4 L, MCV 96.2 H, MCH 31.4 H, MCHC 32.7, RDW 15.2, Plt Count 170, MPV 8.6, Neut % (Auto) 76.1, Lymph % (Auto) 11.1, [place] % (Auto) 7.6, Eos % (Auto) 4.7, Baso % (Auto) 0.5, Neut # (Auto) 5.2, Lymph # (Auto) 0.8, [place] # (Auto) 0.5, Eos # (Auto) 0.3, Baso # (Auto) 0.0 06/03/20 05:55: Sodium 144, Potassium 3.7, Chloride 123 H, Carbon Dioxide 13 L, Anion Gap 11.7, BUN 39 H, Creatinine 1.80 H, Estimated Creat Clear 50, Estimated GFR 37 L, Est GFR ( Amer) 45 L, Glucose 114 H, Calcium 8.5 I & O for Last 24 hours: Intake & Output 05/31/20 06/01/20 06/02/20 06/03/20 11:59 11:59 11:59 11:59 Intake Total 1727 / 1727 3519 / 3519 1695 / 1695 2726 / 2726 Balance 1727 / 1727 3519 / 3519 1695 / 1695 2726 / 2726 Weight 191 lb 7 oz 197 lb 7 oz 197 lb 5.019 oz 217 lb 2.485 oz Microbiology Reports for the Last 24 Hours: Microbiology 05/27/20 07:30 Blood Blood Culture - Preliminary - Constitutional no acute distress, obese - *Routine HEENT Exam Head: Present: normocephalic Eye: Present: EOMI, PERRL ENT: Present: mucous membranes dry - *Routine Neck Exam Absent: JVD - *Routine Respiratory Exam Present: decreased breath sounds - *Routine Cardiovascular Exam Present: RRR - *Routine Abdominal Exam Present: soft - *Routine Extremities Exam Absent: calf tenderness - *Routine Skin Exam Present: intact - *Routine Neurological Exam Present: alert, CN II-XII intact - Routine Psychiatric Exam Present: normal affect Assessment and Plan (1) BRITTNI (acute kidney injury) Current visit: Yes Status: Acute Category: Medical Code(s): N17.9 - Acute kidney failure, unspecified (2) Hypothyroid Current visit: Yes Status: Acute Qualifiers: Hypothyroidism type: acquired Qualified Code(s): E03.9 - Hypothyroidism, unspecified Category: Medical Code(s): E03.9 - Hypothyroidism, unspecified (3) SIRS (systemic inflammatory response syndrome) Current visit: Yes Status: Acute Category: Medical Code(s): R65.10 - Systemic inflammatory response syndrome (SIRS) of non-infectious origin without acute organ dysfunction (4) UTI (urinary tract infection) Current visit: Yes Status: Acute Qualifiers: Urinary tract infection type: site unspecified Hematuria presence: without hematuria Qualified Code(s): N39.0 - Urinary tract infection, site not specified Category: Medical Code(s): N39.0 - Urinary tract infection, site not specified (5) Obesity (BMI 30-39.9) Current visit: Yes Status: Chronic Category: Medical Code(s): E66.9 - Obesity, unspecified (6) CHF (congestive heart failure) Current visit: No Status: Acute Qualifiers: Heart failure type: combined systolic and diastolic Heart failure chronicity: acute on chronic Qualified Code(s): I50.43 - Acute on chronic combined systolic (congestive) and diastolic (congestive) heart failure Category: Medical Code(s): I50.9 - Heart failure, unspecified (7) Yeast UTI Current visit: Yes Status: Acute Category: Medical Code(s): B37.49 - Other urogenital candidiasis
[2020-06-03 18:55] VITALS: O2SAT 99
[2020-06-03 20:00] VITALS: BP 164/98; PULSE 111; RESP 14; TEMP 36.8; O2SAT 96
[2020-06-03 21:45] LABS: POC Glucose,Bedside 176 (70-110)
[2020-06-04] VITALS: BP 154/96
[2020-06-04 00:56] LABS: POC Glucose,Bedside 150 (70-110)
[2020-06-04 00:56] LABS: POC Glucose,Bedside 169 (70-110)
[2020-06-04 04:00] VITALS: BP 160/80; PULSE 101; RESP 18; TEMP 36.7; O2SAT 100
--- NOTE | 2020-06-04 04:03 | PC.NURSE ---
Pt has rested well this shift. Pt has been turned multiple times this shift, but still favors laying on his left-side. Peripheral IV patent and infusing NS @ 75 ml/hr. No acute changes at this time. Will continue to monitor.
[2020-06-04 05:00] VITALS: BMI 36.6
[2020-06-04 06:13] LABS: POC Glucose,Bedside 137 (70-110)
[2020-06-04 06:14] LABS: Basophils % 0.4 % (0.1-2.0); Eosinophils # 0.3 K/mm3 (0.0-0.4); Eosinophils % 4.6 % (0.1-12.0); Hematocrit 28.4 % (42.0-52.0); Hemoglobin 9.4 g/dL (14.1-18.0); Lymphocytes # 0.8 K/mm3 (0.7-4.5); Lymphocytes % 10.3 % (10-50); Mean Corpuscular Hemoglobin 32.1 pg (27.0-31.2); Mean Corpuscular Volume 97.3 fl (80-94); Mean Platelet Volume 8.6 fl (7.4-10.4); Monocytes # 0.6 K/mm3 (0.1-1.0); Monocytes % 8.1 % (1.7-9.3); Neutrophils # 5.8 K/mm3 (1.8-7.8); Neutrophils % 76.7 % (37.0-80.0); Platelet Count 161 K/mm3 (142-424); Red Blood Count 2.91 M/mm3 (4.60-6.20); Red Cell Distribution Width 15.3 % (11.5-17.5); White Blood Count 7.5 K/mm3 (4.8-10.8)
[2020-06-04 06:34] LABS: Anion Gap 11.9 mEq/L (5-15); Blood Urea Nitrogen 34 mg/dl (9-20); Calcium 8.6 mg/dl (8.4-10.2); Carbon Dioxide 15 mmol/L (22.0-30.0); Chloride 120 mmol/L (98-107); Creatinine Clearance Estimated 44 mL/min (50-200); Estimated Glomerular Filt Rate 35 ml/min (>60); GFR (African American) 42 ML/MIN (>60); Glucose 135 mg/dl (74-100); Potassium 3.9 mmoL/L (3.5-5.1); Sodium 143 mmol/L (136-145)
--- NOTE | 2020-06-04 06:49 | PC.NURSE ---
ON UNIT ROUNDING THIS AM, REPORTED A 12# WT LOSS SINCE YESTERDAY AM. NO NEW ORDERS AT THIS TIME.
--- NOTE | 2020-06-04 07:21 | HMH.ACPN2 ---
Internal Medicine - PN: Subj *Date: 06/04/20 *Time: 07:21 Interval history: doing ok but difficult to be oob - no chest pain Exam Vital signs and Labs for Last 24 Hours: Temp Pulse Resp BP Pulse Ox 98.0 F 101 H 18 160/80 H 100 06/04/20 04:00 06/04/20 04:00 06/04/20 04:00 06/04/20 04:00 06/04/20 04:00 Laboratory Results - last 24 hr 06/03/20 05:15: POC Glucose 118 H 06/03/20 11:40: POC Glucose 150 H 06/03/20 15:59: POC Glucose 169 H 06/03/20 20:15: POC Glucose 176 H 06/04/20 05:15: POC Glucose 137 H 06/04/20 05:45: WBC 7.5, RBC 2.91 L, Hgb 9.4 L, Hct 28.4 L, MCV 97.3 H, MCH 32.1 H, MCHC 33.0, RDW 15.3, Plt Count 161, MPV 8.6, Neut % (Auto) 76.7, Lymph % (Auto) 10.3, [place] % (Auto) 8.1, Eos % (Auto) 4.6, Baso % (Auto) 0.4, Neut # (Auto) 5.8, Lymph # (Auto) 0.8, [place] # (Auto) 0.6, Eos # (Auto) 0.3, Baso # (Auto) 0.0 06/04/20 05:45: Sodium 143, Potassium 3.9, Chloride 120 H, Carbon Dioxide 15 L, Anion Gap 11.9, BUN 34 H, Creatinine 1.90 H, Estimated Creat Clear 44, Estimated GFR 35 L, Est GFR ( Amer) 42 L, Glucose 135 H, Calcium 8.6 I & O for Last 24 hours: Intake & Output 06/01/20 06/02/20 06/03/20 06/04/20 11:59 11:59 11:59 11:59 Intake Total 3519 / 3519 1695 / 1695 2726 / 2726 120 / 120 Output Total 120 / 120 Balance 3519 / 3519 1695 / 1695 2726 / 2726 0 / 0 Weight 197 lb 7 oz 197 lb 5.019 oz 217 lb 2.485 oz 199 lb 11.821 oz - Constitutional no acute distress, obese - *Routine HEENT Exam Head: Present: normocephalic Eye: Present: EOMI, PERRL ENT: Present: mucous membranes dry - *Routine Neck Exam Present: supple. Absent: JVD - *Routine Respiratory Exam Present: decreased breath sounds - *Routine Cardiovascular Exam Present: RRR - *Routine Abdominal Exam Present: soft - *Routine Extremities Exam Absent: calf tenderness - *Routine Skin Exam Present: intact - *Routine Neurological Exam Present: alert - Routine Psychiatric Exam Present: normal affect Assessment and Plan (1) BRITTNI (acute kidney injury) Current visit: Yes Status: Acute Category: Medical Code(s): N17.9 - Acute kidney failure, unspecified (2) Hypothyroid Current visit: Yes Status: Acute Qualifiers: Hypothyroidism type: acquired Qualified Code(s): E03.9 - Hypothyroidism, unspecified Category: Medical Code(s): E03.9 - Hypothyroidism, unspecified (3) SIRS (systemic inflammatory response syndrome) Current visit: Yes Status: Acute Category: Medical Code(s): R65.10 - Systemic inflammatory response syndrome (SIRS) of non-infectious origin without acute organ dysfunction (4) UTI (urinary tract infection) Current visit: Yes Status: Acute Qualifiers: Urinary tract infection type: site unspecified Hematuria presence: without hematuria Qualified Code(s): N39.0 - Urinary tract infection, site not specified Category: Medical Code(s): N39.0 - Urinary tract infection, site not specified (5) Obesity (BMI 30-39.9) Current visit: Yes Status: Chronic Category: Medical Code(s): E66.9 - Obesity, unspecified (6) CHF (congestive heart failure) Current visit: No Status: Acute Qualifiers: Heart failure type: combined systolic and diastolic Heart failure chronicity: acute on chronic Qualified Code(s): I50.43 - Acute on chronic combined systolic (congestive) and diastolic (congestive) heart failure Category: Medical Code(s): I50.9 - Heart failure, unspecified (7) Yeast UTI Current visit: Yes Status: Acute Category: Medical Code(s): B37.49 - Other urogenital candidiasis
[2020-06-04 07:41] VITALS: BP 138/75; PULSE 101; RESP 18; TEMP 37; O2SAT 100
[2020-06-04 07:55] VITALS: PULSE 101; O2SAT 98
--- NOTE | 2020-06-04 12:31 | P.PN_ITS ---
Internal Medicine - PN: Subj *Date: 06/04/20 *Time: 12:31 Exam Vital signs and Labs for Last 24 Hours: Temp Pulse Resp BP Pulse Ox 98.6 F 101 H 18 138/75 98 06/04/20 07:41 06/04/20 07:55 06/04/20 07:41 06/04/20 07:41 06/04/20 07:55 Laboratory Results - last 24 hr 06/03/20 11:40: POC Glucose 150 H 06/03/20 15:59: POC Glucose 169 H 06/03/20 20:15: POC Glucose 176 H 06/04/20 05:15: POC Glucose 137 H 06/04/20 05:45: WBC 7.5, RBC 2.91 L, Hgb 9.4 L, Hct 28.4 L, MCV 97.3 H, MCH 32.1 H, MCHC 33.0, RDW 15.3, Plt Count 161, MPV 8.6, Neut % (Auto) 76.7, Lymph % (Auto) 10.3, [place] % (Auto) 8.1, Eos % (Auto) 4.6, Baso % (Auto) 0.4, Neut # (Auto) 5.8, Lymph # (Auto) 0.8, [place] # (Auto) 0.6, Eos # (Auto) 0.3, Baso # (Auto) 0.0 06/04/20 05:45: Sodium 143, Potassium 3.9, Chloride 120 H, Carbon Dioxide 15 L, Anion Gap 11.9, BUN 34 H, Creatinine 1.90 H, Estimated Creat Clear 44, Estimated GFR 35 L, Est GFR ( Amer) 42 L, Glucose 135 H, Calcium 8.6 I & O for Last 24 hours: Intake & Output 06/01/20 06/02/20 06/03/20 06/04/20 23:59 23:59 23:59 23:59 Intake Total 2490 / 2490 1200 / 1200 1766 / 1766 600 / 600 Output Total 120 / 120 Balance 2490 / 2490 1200 / 1200 1646 / 1646 600 / 600 Weight 89.556 kg 89.5 kg 98.5 kg 90.6 kg Assessment and Plan (1) BRITTNI (acute kidney injury) Current visit: Yes Status: Acute Category: Medical Code(s): N17.9 - Acute kidney failure, unspecified (2) Hypothyroid Current visit: Yes Status: Acute Qualifiers: Hypothyroidism type: acquired Qualified Code(s): E03.9 - Hypothyroidism, unspecified Category: Medical Code(s): E03.9 - Hypothyroidism, unspecified (3) SIRS (systemic inflammatory response syndrome) Current visit: Yes Status: Acute Category: Medical Code(s): R65.10 - Systemic inflammatory response syndrome (SIRS) of non-infectious origin without acute organ dysfunction (4) UTI (urinary tract infection) Current visit: Yes Status: Acute Qualifiers: Urinary tract infection type: site unspecified Hematuria presence: without hematuria Qualified Code(s): N39.0 - Urinary tract infection, site not specified Category: Medical Code(s): N39.0 - Urinary tract infection, site not specified (5) Obesity (BMI 30-39.9) Current visit: Yes Status: Chronic Category: Medical Code(s): E66.9 - Obesity, unspecified (6) CHF (congestive heart failure) Current visit: No Status: Acute Qualifiers: Heart failure type: combined systolic and diastolic Heart failure chronicity: acute on chronic Qualified Code(s): I50.43 - Acute on chronic combined systolic (congestive) and diastolic (congestive) heart failure Category: Medical Code(s): I50.9 - Heart failure, unspecified (7) Yeast UTI Current visit: Yes Status: Acute Category: Medical Code(s): B37.49 - Other urogenital candidiasis The patient's infection will respond to the chosen ABx?: Yes Is the patient receiving the right drug, dose, and route?: Yes Could a more targeted ABx be ordered?: No
[2020-06-04 15:42] VITALS: BP 152/80; PULSE 103; RESP 19; TEMP 36.8; O2SAT 100
--- NOTE | 2020-06-04 18:17 | PC.NURSE ---
ALERT AND ORIENTED X3. FORGETFUL. PT UP TO CHAIR FOR MOST OF AFTERNOON, 2-3X ASSIST TO TRANSFER. PO INTAKE ADEQUATE. LUNGS REMAIN CLEAR THROUGHOUT. ABDOMEN IS LARGE, ROUND AND SOFT WITH ACTIVE BS IN ALL QUADS. NO BM. PT VOIDS CLEAR YELLOW URINE PER BRIEF. VSS. NO DISTRESS NOTED. SAFETY MEASURES IN PLACE. EDUCATION PROVIDED ON THE IMPORTANCE OF BEING OUT OF BED AND DEEP BREATHING. PT VERBALIZED UNDERSTANDING. WILL CONTINUE TO MONITOR
[2020-06-04 20:00] VITALS: BP 153/80; PULSE 113; RESP 22; TEMP 36.9; O2SAT 98
[2020-06-05 00:37] LABS: POC Glucose,Bedside 133 (70-110)
[2020-06-05 00:37] LABS: POC Glucose,Bedside 164 (70-110)
[2020-06-05 00:37] LABS: POC Glucose,Bedside 188 (70-110)
--- NOTE | 2020-06-05 03:29 | PC.NURSE ---
Pt able to answer all questions appropriately this shift, alert & oriented. Pt rested well with eyes closed t/o shift with no complaints. Denies pain when asked. Bilateral lung sounds noted clear t/o, left lobe noted clear but diminished. Tolerated RA well with no c/o soa. Active bowel sounds noted in all 4 quads upon auscultation. Remains incontinent of bowel and bladder. Urine noted bright yellow in color. No BM noted this shift thus far. Pt was turned and repositioned Q2H and PRN, favors lying on left side. +2 pitting edema noted to LLE. +1 pitting edema noted to right hand, elevated on pillow. VSS. Remains safe with seizure precautions in place. Call light within reach. Will continue to monitor.
[2020-06-05 04:00] VITALS: BP 158/93; PULSE 95; RESP 16; TEMP 36.6; O2SAT 100
[2020-06-05 05:00] VITALS: BMI 37.0
[2020-06-05 05:30] LABS: POC Glucose,Bedside 158 (70-110)
[2020-06-05 06:22] LABS: Basophils % 0.4 % (0.1-2.0); Eosinophils # 0.3 K/mm3 (0.0-0.4); Eosinophils % 3.2 % (0.1-12.0); Hematocrit 28.3 % (42.0-52.0); Hemoglobin 9.2 g/dL (14.1-18.0); Lymphocytes # 0.6 K/mm3 (0.7-4.5); Lymphocytes % 7.4 % (10-50); Mean Corpuscular HGB Conc 32.4 g/dL (31.8-35.4); Mean Corpuscular Volume 98.7 fl (80-94); Mean Platelet Volume 8.3 fl (7.4-10.4); Monocytes # 0.4 K/mm3 (0.1-1.0); Monocytes % 5.2 % (1.7-9.3); Neutrophils # 6.8 K/mm3 (1.8-7.8); Neutrophils % 83.9 % (37.0-80.0); Platelet Count 173 K/mm3 (142-424); Red Blood Count 2.86 M/mm3 (4.60-6.20); Red Cell Distribution Width 15.4 % (11.5-17.5); White Blood Count 8.1 K/mm3 (4.8-10.8)
[2020-06-05 06:24] LABS: Chloride 119 mmol/L (98-107)
[2020-06-05 06:25] LABS: Potassium 3.7 mmoL/L (3.5-5.1); Sodium 142 mmol/L (136-145)
[2020-06-05 06:27] LABS: Blood Urea Nitrogen 29 mg/dl (9-20); Creatinine Clearance Estimated 45 mL/min (50-200); Estimated Glomerular Filt Rate 35 ml/min (>60); GFR (African American) 42 ML/MIN (>60)
[2020-06-05 06:28] LABS: Anion Gap 11.7 mEq/L (5-15); Calcium 8.4 mg/dl (8.4-10.2); Carbon Dioxide 15 mmol/L (22.0-30.0); Glucose 144 mg/dl (74-100)
[2020-06-05 07:30] VITALS: BP 145/86; PULSE 99; RESP 18; TEMP 36.5; O2SAT 100
[2020-06-05 09:08] VITALS: PULSE 99; RESP 18; O2SAT 100
--- NOTE | 2020-06-05 09:18 | HMH.DCSUM ---
General - General Admission date:: 05/27/20 Discharge date: 06/05/20 HPI HPI: this pt presented to the ed with acute change in mental status at [facility] - pt with recent admit with uti and julio -pt without chest painand no vomiting or diarrhea - Pt presents from group home this morning with weakness. skilled nursing staff reports pt fell last night and hit his head and this morning when they went in to check on him he was having a hard time repsonding. Pt arrives having inappropriate words. Pt is currently being treated for UTI at [facility]- pt admitted for ivf and meds - Hospital Course Hospital Course: Laboratory Tests 05/27/20 05/27/20 05/27/20 07:30 07:30 07:30 WBC 9.4 RBC 3.64 L Hgb 11.7 L Hct 35.3 L MCV 97.1 H MCH 32.0 H MCHC 33.0 RDW 15.2 Plt Count 241 MPV 8.0 Neut % (Auto) 80.1 H Lymph % (Auto) 9.6 L Aurora % (Auto) 7.3 Eos % (Auto) 2.7 Baso % (Auto) 0.4 Neut # (Auto) 7.5 Lymph # (Auto) 0.9 Aurora # (Auto) 0.7 Eos # (Auto) 0.3 Baso # (Auto) 0.0 Sodium 141 Potassium 4.7 Chloride 109 H Carbon Dioxide 14 L Anion Gap 22.7 H BUN 111 H* Creatinine 3.70 H Estimated Creat Clear 28 Estimated GFR 16 L* Est GFR ( Amer) 20 L Glucose 128 H POC Glucose Lactate 4.6 H Calcium 9.1 Magnesium Total Bilirubin 0.5 AST 23 ALT 19 Alkaline Phosphatase 145 H Total Protein 7.1 Albumin 3.3 L Globulin 3.8 H Albumin/Globulin Ratio 0.9 L Urine Color Urine Appearance Urine pH Ur Specific Bayside Urine Protein Urine Glucose (UA) Urine Ketones Urine Blood Urine Nitrate Urine Bilirubin Urine Urobilinogen Ur Leukocyte Esterase Urine RBC Urine WBC Ur Squamous Epith Cells Urine Bacteria Carbamazepine Chlamy pneumoniae PCR Adenovirus (PCR) B. pertussis DNA (PCR) Coronavirus OC43 (PCR) Coronavirus HKU1 (PCR) Coronavirus 229E (PCR) COVID-19 PCR Coronavirus NL63 (PCR) Human Metapneumovir PCR Influenza A (H1) PCR Influ A (H1N1/09) PCR Influenza A (H3) PCR Influenza Type A (PCR) Influenza Type B (PCR) M. pneumoniae (PCR) Parainfluenza 1 (PCR) Parainfluenza 2 (PCR) Parainfluenza 3 (PCR) Parainfluenza 4 (PCR) RSV (PCR) Entero/Rhino (PCR) 05/27/20 05/27/20 05/27/20 07:35 08:10 11:27 WBC RBC Hgb Hct MCV MCH MCHC RDW Plt Count MPV Neut % (Auto) Lymph % (Auto) Aurora % (Auto) Eos % (Auto) Baso % (Auto) Neut # (Auto) Lymph # (Auto) Aurora # (Auto) Eos # (Auto) Baso # (Auto) Sodium Potassium Chloride Carbon Dioxide Anion Gap BUN Creatinine Estimated Creat Clear Estimated GFR Est GFR ( Amer) Glucose POC Glucose 119 H Lactate Calcium Magnesium Total Bilirubin AST ALT Alkaline Phosphatase Total Protein Albumin Globulin Albumin/Globulin Ratio Urine Color Yellow Urine Appearance Cloudy Urine pH 5.5 Ur Specific Bayside 1.025 Urine Protein 2+ Urine Glucose (UA) Negative Urine Ketones Negative Urine Blood 2+ Urine Nitrate Negative Urine Bilirubin Negative Urine Urobilinogen 0.2 Ur Leukocyte Esterase 3+ A Urine RBC 5-10 Urine WBC 20-50 Ur Squamous Epith Cells Occasional Urine Bacteria 2+ Carbamazepine Chlamy pneumoniae PCR Not detected Adenovirus (PCR) Not detected B. pertussis DNA (PCR) Not detected Coronavirus OC43 (PCR) Not detected Coronavirus HKU1 (PCR) Not detected Coronavirus 229E (PCR) Not detected COVID-19 PCR Not detected Coronavirus NL63 (PCR) Not detected Human Metapneumovir PCR Not detected Influenza A (H1) PCR Not detected Influ A (H1N1/09) PCR Not detected Influenza A (H3) PCR Not detected Influenza Type A (PCR) Not
--- NOTE | 2020-06-05 11:30 | SW/DCPLANNER ---
Addendum entered by Alma Putnam 06/05/20 14:31: Negative COVID is in and patient will discharge to [facility]. Original Note: This patient is currently ICF level of care at [facility]. I have spoke with Kaya this morning regarding this patient and plans to discharge back today. Dr Vazquez/Juancho have recommended Hospice services for this patient. I have spoke with patients son/POA and he is agreeable to Hospice services for this patient. Patient information has been faxed to [facility] regarding referral and to follow up at [facility]. Kaya with [facility] is also aware of this plan. Once discharge summary is signed and COVID results are back patient will discharge today.
--- NOTE | 2020-06-05 11:30 | HMH.PTEV ---
Physical Therapy Evaluation Rehab PT IP Evaluation Start: 06/05/20 08:43 Freq: ONCE Status: Active Protocol: Document 06/05/20 11:28 PHORNE (Rec: 06/05/20 11:30 PHORNE [id number]) Subjective/History History History 75 yowm adm to [facility] with UTI. He presents from [facility] prior to adm. Subjective Subjective Pt reports feeling tired this morning. Rehab PT IP Eval Objective Appearance Patient Behavior Appropriate Patient Orientation Person,Place Difficulty following instructions none Speech Pattern Clear Ambulation Patient Able to Ambulate No Balance Ability to Arise Able, uses arms to help Sitting Balance Leans or slides in chair Standing Balance Unsteady Dynamic Sitting Balance Ability Fair Dynamic Standing Balance Ability Poor Transfers Bed Transfer Ability Moderate x 1 (50% assist) Chair Transfer Ability Maximum x 1 (75% assist) Sit to Stand Bed Transfer Ability Maximum x 1 (75% assist) Sit to Stand Chair Transfer Ability Maximum x 1 (75% assist) ROM All Extremities PT ROM Status WFL MMT All Extremities PT MMT ABN Abnormal MMT Grade grossly 3/5 Rehab PT IP prob,goals,plan Problems Date of Evaluation: 06/05/20 PT IP Problems Bed Mobility,Transfers,Gait Rehab Potential Rehab Potential Fair Plan PT Intervention Plan Bed Mobility,Transfers,Gait, Therapeutic Exercise PT Plan Frequency BID Duration LOS Discharge Goals Bed Transfer Ability Moderate x 1 (50% assist) Sit to Stand Chair Transfer Ability Moderate x 2 (50% assist) Discharge Plan PT Discharge Plan Pt is most appropriate to return to [facility] home once medically stable. G -code Required No Eval Complexity Eval Charge Codes 04549 - Moderate Complexity PHYSICIAN CERTIFICATION: I certify the specified therapy services for Carlo Solano are required, authorized, and reviewed every 30 days.
[2020-06-05 11:47] VITALS: BP 149/92; PULSE 99; RESP 18; TEMP 36.6; O2SAT 99
[2020-06-05 12:05] LABS: POC Glucose,Bedside 160 (70-110)
[2020-06-05 15:40] VITALS: BP 133/82; PULSE 93; RESP 20; TEMP 36.8; O2SAT 100
== END 2020-06-05 16:00 ==
LOC: ER 09:24 → 2ND 10:05
PROVIDERS: Nurse Practitioner Family; Admitting Provider Emergency Medicine; Emergency Provider Emergency Medicine; PCP Emergency Medicine; Visit Provider Emergency Medicine
DX: N17.9 Acute kidney failure, unspecified (principal); N39.0 Urinary tract infection, site not specified; I11.0 Hypertensive heart disease with heart failure; I50.43 Acute on chronic combined systolic (congestive) and diastolic (congestive) heart failure; I25.2 Old myocardial infarction; I70.208 Unspecified atherosclerosis of native arteries of extremities, other extremity; J44.9 Chronic obstructive pulmonary disease, unspecified; I48.91 Unspecified atrial fibrillation; E03.9 Hypothyroidism, unspecified; Z95.5 Presence of coronary angioplasty implant and graft; R65.10 Systemic inflammatory response syndrome (SIRS) of non-infectious origin without acute organ dysfunction
CPT/HCPCS: 36415; 70450; 71045; 72125; 80048; 80053; 80156; 81001; 82962; 83605; 83735; 85025; 87040; 87077; 87086; 87088; 87581; 87633; 87798; 96365; 96375; 97162; 99285; G0378; J1335; J1956; U0003

== ENCOUNTER 2020-06-08 17:07 | Emergency (ER) | payer OTHER, SELFPAY ==
[2020-06-08] VITALS (8 sets, daily range): BP systolic 150–185; BP diastolic 69–110; PULSE 75–92; RESP 17–18; TEMP 36.4–36.8; O2SAT 99–100; BMI 30.4
--- NOTE | 2020-06-08 17:15 | XR_ITS ---
PROCEDURE: XR CHEST AP CLINICAL HISTORY: fall Chest pain COMPARISON: CT CT CHEST WO CON from 02/04/2020 CR XR CHEST PORTABLE from 02/04/2020 CR XR CHEST AP from 05/27/2020 CR XR CHEST PORTABLE from 05/31/2020 FINDINGS: The lung levy are fairly well expanded for a supine film and appear clear of infiltrate. There is no pulmonary contusion noted and there is no pneumothorax. There is stable moderate generalized cardiomegaly however is no vascular congestion and there are no findings to suggest pleural effusion. No acute bony abnormalities though the lower 4 ribs are poorly seen bilaterally on this image. There is likely an old healed fracture right 2nd rib posterior axillary line. IMPRESSION: Generalized cardiomegaly, no definite acute chest pathology noted Dictated by: Dr. Bentley Meek MD 06/08/2020 20:36 Dr. Bentley Meek MD in [place] 06/08/2020 20:36
--- NOTE | 2020-06-08 17:15 | CT_ITS ---
PROCEDURE: CT HEAD/BRAIN WO CON CLINICAL INDICATION: fall COMPARISON: CT CT HEAD/BRAIN WO CON from 05/28/2020 TECHNIQUE: Axial images obtained. All CT scans at the facility use one or more dose reduction, viz: automated exposure control, ma/kV adjustment per patient size (including targeted exams where dose is matched to indication, i.e. head), or iterative reconstruction technique. FINDINGS: No midline shift, mass effect, intracranial hemorrhage, hydrocephalus, or extra-axial fluid collection is evident. The basilar cisterns are prominent. The ventricular system is normal for age. Again noted is the area of encephalomalacia right mid and posterior parietal lobe and there has been a previous right parietal craniotomy. There are periventricular hypodensities is noted previously consistent with chronic ischemic white matter changes. The sylvian fissures and cortical sulci are prominent. The calvarium has an unremarkable appearance. No mastoid effusion. There is total opacification of the right maxillary sinus as noted on the recent study 05/28/2020 along with mild mucoperiosteal thickening of the left maxillary sinus and mild inflammatory changes of the ethmoid sinuses.. IMPRESSION: Findings of prominent cortical atrophy, stable moderate sized area of encephalomalacia right mid and posterior parietal lobe and status post right parietal craniotomy, no definite acute intracranial pathology noted Dictated by: Dr. Bentley Meek MD 06/08/2020 20:29 Dr. Bentley Meek MD in [place] 06/08/2020 20:29
--- NOTE | 2020-06-08 17:15 | CT_ITS ---
PROCEDURE: CT CERVICAL SPINE WO CON CLINICAL INDICATION: fall Complaining of neck pain COMPARISON: CT CT CERVICAL SPINE WO CON from 05/27/2020 TECHNIQUE: Axial images obtained with sagittal and coronal reformats. All CT scans at the facility use one or more dose reduction, viz: automated exposure control, ma/kV adjustment per patient size (including targeted exams where dose is matched to indication, i.e. head), or iterative reconstruction technique. Axial spiral CT scanning performed of the cervical spine beginning at the base of the skull and continuing to the upper T-spine. 3-D multiplanar reconstruction with 3-D manipulation of volumetric data set in image rendering was completed by the radiologist and/or technologist with the supervision of the radiologist on independent workstation. FINDINGS: No fracture nor subluxation is evident. There is generalized osteopenia. Curvature and alignment appear normal. All cervical vertebrae appear intact. There is prominent disc space narrowing at the C5-6 and C6-7 levels. There is mild neural foraminal narrowing bilaterally at the C 5 6 and C6-7 levels. The prevertebral soft tissues are normal. Mild multilevel degenerate changes of the apophyseal joints is noted bilaterally. There is narrowing and spurring of the atlanto axial joint. IMPRESSION: Cervical spine intact with no fracture nor subluxation. 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 Bentley Meek MD 06/08/2020 20:34 Dr. Bentley Meek MD in [place] 06/08/2020 20:34
--- NOTE | 2020-06-08 17:15 | XR_ITS ---
PROCEDURE: XR PELVIS 1-2V CLINICAL INDICATION: fall Pelvic and hip pain COMPARISON: CR HIPCMLT XR hip LT 2-3V w/pelvis from 11/23/2018 TECHNIQUE: XR Pelvis AP View FINDINGS: Orthopedic hardware seen right hip with an oblique oriented pin within the femoral neck and head fixated to an intramedullary haile. There is heterotopic new bone formation about the greater trochanter. The right femoral head appears viable. There is an intramedullary haile seen in the visualized portion of the proximal left femur. The left femoral head and neck appear intact. The iliac bones and pubic bones appear intact. The SI joints and symphysis pubis are normal. No lytic or blastic change. IMPRESSION: Stable but bilateral orthopedic hardware, no acute fracture seen. Dictated by: Dr. Bentley Meek MD 06/08/2020 20:39 Dr. Bentley Meek MD in [place] 06/08/2020 20:39
--- NOTE | 2020-06-08 17:15 | CT_ITS ---
PROCEDURE: CT FACIAL BONES WO CON CLINICAL HISTORY: fall Complaining of left eye pain COMPARISON: Noncontrast CT scan of the brain 05/28/2020 TECHNIQUE: Axial images obtained with sagittal and coronal reformats. All CT scans at the facility use one or more dose reduction, viz: automated exposure control, ma/kV adjustment per patient size (including targeted exams where dose is matched to indication, i.e. head), or iterative reconstruction technique. FINDINGS: Bones: Unremarkable. No fracture, lytic, or blastic changes evident. Extracranial soft tissues: Unremarkable. Sinuses: There is total opacification of the right maxillary sinus with homogeneous opacity likely fluid and or mucoperiosteal thickening extending into and occluding the ostiomeatal complex right side. Essentially total opacification the right maxillary sinus was seen on the previous CT scan of the brain. There is minimal mucoperiosteal thickening of the left maxillary sinus. There are mild inflammatory changes of the ethmoid sinuses, the frontal sinuses and sphenoid sinus are clear. The mastoids are clear bilaterally. Orbits: Unremarkable. Other: No other pertinent findings. 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 Bentley Meek MD 06/08/2020 20:49 Dr. Bentley Meek MD in [place] 06/08/2020 20:49
--- NOTE | 2020-06-08 17:22 | XR_ITS ---
PROCEDURE: XR FOOT RT MIN 3V CLINICAL INDICATION: trauma COMPARISON: No exams were available for comparison FINDINGS: No fracture or dislocation. No lytic or blastic change. There is mild generalized osteopenia.. The joint spaces are well-preserved. No significant degenerative/arthritic changes. The plantar arch is normal. No erosive changes evident. Other findings:None. IMPRESSION: No acute findings. Dictated by: Dr. Bentley Meek MD 06/08/2020 20:43 Dr. Bentley Meek MD in [place] 06/08/2020 20:43
--- NOTE | 2020-06-08 17:22 | XR_ITS ---
PROCEDURE: XR FOREARM RT 2V CLINICAL INDICATION: trauma COMPARISON: No exams were available for comparison FINDINGS: No fracture or dislocation. There is minor cortical irregularity of the diametaphyseal zone of the radial styloid most likely secondary to old healed fracture. The proximal radius and ulna appear intact. The carpal bones all appear intact. There is narrowing and sclerosis of the 1st carpometacarpal joint. No lytic or blastic change. There is mild generalized osteopenia.. Other findings:None. IMPRESSION: No acute findings. Dictated by: Dr. Bentley Meek MD 06/08/2020 20:42 Dr. Bentley Meek MD in [place] 06/08/2020 20:42
--- NOTE | 2020-06-08 18:20 | HMH.EDFALL ---
ED Disposition Clinical Impression: Sprain of right forearm, Concussion without loss of consciousness Accidental fall Qualifiers: Encounter type: initial encounter Qualified Code(s): W19.XXXA - Unspecified fall, initial encounter Facial trauma Qualifiers: Encounter type: initial encounter Qualified Code(s): S09.93XA - Unspecified injury of face, initial encounter Disposition: [facility] Condition on Discharge: Fair Referrals: PCP,No [Non-Staff] - - Critical Care Critical Care Time: No Attestation: On 06/08/20, the high probability of a clinically significant, sudden or life threatening deterioration of the following system(s) required my full and direct attention, intervention and personal management. The time I documented below is in addition to time spent performing reported procedures but includes the following listed in this critical care notation. Medical Decision Making - Medical Records Medical records reviewed: Yes: I reviewed the patient's medical records. - Yogesh Inquiry Pt receiving controlled substance: No Vital Signs: 06/08/20 17:08 06/08/20 17:09 06/08/20 17:38 Temperature 97.6 F Temperature Source Oral Pulse Rate [Right Brachial] 90 75 Pulse Rate [Right] 89 Respiratory Rate 17 Blood Pressure [Right Arm] 150/98 H 150/98 H 166/99 H Blood Pressure Mean [Right Arm] 115 115 121 Blood Pressure Source [Right Arm] Automatic Cuff Automatic Cuff Blood Pressure Position [Right Arm] Supine Supine 02 Sat by Pulse Oximetry 100 100 99 Oxygen Delivery Method Room Air Room Air Room Air 06/08/20 18:08 Temperature Temperature Source Pulse Rate [Right Brachial] 83 Pulse Rate [Right] Respiratory Rate Blood Pressure [Right Arm] 162/106 H Blood Pressure Mean [Right Arm] 124 Blood Pressure Source [Right Arm] Automatic Cuff Blood Pressure Position [Right Arm] Supine 02 Sat by Pulse Oximetry 99 Oxygen Delivery Method Room Air Orders (Tests/Meds): ORDERS Category Date Time Status CT cervical spine wo con Stat Cat Scan 06/08/20 17:[address] facial bones wo con Stat Cat Scan 06/08/20 17:[address] head/brain wo con Stat Cat Scan 06/08/20 17:15 Taken XR chest AP Stat Exams 06/08/20 17:15 Taken XR foot RT min 3V Stat Exams 06/08/20 17:22 Taken XR forearm RT 2V Stat Exams 06/08/20 17:22 Taken XR pelvis 1-2V Stat Exams 06/08/20 17:15 Taken - Radiology Data #1 Image(s): Chest, Forearm, Pelvis, Foot/Toes Image Reviewed: Yes I reviewed the patient's radiology results X-ray of the chest, pelvis, forearm and foot does not show any acute fracture. - CT Data CT Scan: Head, C-Spine, Other (face) Time Received: 17:50 Findings Narrative: CT of the head does not show any acute intracranial hemorrhage or mass-effect shift. CT of the cervical spine shows some mild degenerative change at multiple levels there is some disc space narrowing at C5-C6 and C6-C7. No evidence of acute fracture. CT of the maxillofacial region does not show any acute fracture. There is some air-fluid level in the right maxillary sinus as well as mucosal thickening. - Reevaluation(s) Time: 18:33 Reevaluation #1: On reevaluation, the patient is feeling better. There is no significant intracranial abnormality. [facility] be [facility] to [facility]. Given strict return precautions. Verbalized understanding. Medical Decision Narrative: 75-year-old male presented to the emergency department after accidental fall. Patient meets imaging criteria for the head and cervical spine. Images obtained. Patient up-to-date on tetanus. Fall HPI - General Chief Complaint: Fall Stated Complaint: fall Time Seen by Provider: 06/08/20 17:10 Mode of Arrival: EMS Limitations: No Limitations Description of Symptoms (Recalled from ER Triage Doc. by RN): [facility] reports that patient had an unwitnessed fall when trying to get out of the bed to reach his phone. -loc. pt c/o right fourth t
--- NOTE | 2020-06-08 18:56 | PC.NURSE ---
report called to bernice, receiving rn at [facility]. ems made aware of need for transport back to [facility].
== END 2020-06-08 19:49 ==
PROVIDERS: Emergency Provider Emergency Medicine; PCP Emergency Medicine
DX: S06.0X0A Concussion without loss of consciousness, initial encounter (principal); S63.501A Unspecified sprain of right wrist, initial encounter; S91.114A Laceration without foreign body of right lesser toe(s) without damage to nail, initial encounter; W06.XXXA Fall from bed, initial encounter; Y92.122 Bedroom in nursing home as the place of occurrence of the external cause; I48.20 Chronic atrial fibrillation, unspecified; J44.9 Chronic obstructive pulmonary disease, unspecified; I25.10 Atherosclerotic heart disease of native coronary artery without angina pectoris; E11.9 Type 2 diabetes mellitus without complications; I10 Essential (primary) hypertension; E78.5 Hyperlipidemia, unspecified; I25.2 Old myocardial infarction; E03.9 Hypothyroidism, unspecified; Z87.891 Personal history of nicotine dependence
CPT/HCPCS: 70450; 70486; 71045; 72125; 72170; 73090; 73630; 99284